=== PATIENT | male | born 1955 | race Caucasian/White ===

== ENCOUNTER 2016-04-24 19:00 | Inpatient (IN) | payer OTHER ==
[2016-04-24 19:19] VITALS: BMI 48.8
[2016-04-24] MEDS: SODIUM CHLORIDE 1,000 ML IV SCH (19:56)
[2016-04-24 20:07] LABS: BASOPHIL 0.3 % (0-2.0); EOSINOPHIL 2.3 % (0-4.5); MCH 31.6 pg (25.7-33.7); MCHC 34.5 g/dl (32.0-35.9); MEAN CELL VOLUME 91.6 fl (80-96); MEAN PLT VOLUME 7.1 fl (7.5-11.1); PLATELET COUNT 145 K/MM3 (134-434); RDW 13.6 % (11.9-15.9); WHITE BLOOD COUNT 7.4 K/mm3 (4.0-10.0)
--- NOTE | 2016-04-24 20:21 | PDOC ---
*Physical Exam - Vital Signs Last Vital Signs Temp Pulse Resp BP Pulse Ox 98.6 F 108 H 18 120/69 100 04/24/16 19:17 04/24/16 19:17 04/24/16 19:17 04/24/16 19:17 04/24/16 19:17 ED Treatment Course - LABORATORY CBC & Chemistry Diagram: 04/25/16 15:00 04/25/16 06:15 - ADDITIONAL ORDERS Additional order review: 04/24/16 19:40 RBC 4.73 MCV 91.6 MCHC 34.5 RDW 13.6 MPV 7.1 L Neutrophils % 74.0 D Lymphocytes % 14.6 D Monocytes % 8.8 Eosinophils % 2.3 Basophils % 0.3 Medical Decision Making - Medical Decision Making 04/24/16 20:20 agree with care from PITO Lazar *DC/Admit/Observation/Transfer Diagnosis at time of Disposition: Colitis, CHF exacerbation, Atrial fibrillation - Discharge Dispostion Condition at time of disposition: Fair
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
[2016-04-24 20:52] LABS: ALBUMIN 3.6 g/dl (3.4-5.0); BILIRUBIN,DIRECT 0.2 mg/dL (0.0-0.2); BILIRUBIN,TOTAL 0.7 mg/dL (0.2-1.0); CALCIUM 8.5 mg/dL (8.5-10.1); CREATININE 1.1 mg/dL (0.7-1.3); TOT PROT 7.2 g/dl (6.4-8.2)
[2016-04-24 20:53] LABS: TROPONIN I < 0.02 ng/ml (0.00-0.05)
[2016-04-24] MEDS ORDERED: LEVOFLOXACIN 500 MG IVPB 100 ML IVPB ONE (22:56)
[2016-04-24] MEDS ORDERED: METRONIDAZOLE 500 MG PREMIXED 100 ML IVPB ONE (22:56)
[2016-04-24] MEDS ORDERED: morphine CARPU-JECT 4 MG/1 ML DISP.SYRIN IVPUSH ONE (23:33)
[2016-04-25 00:12] LABS: PH,URINE 5.5 (5.0-8.0); URINE APPEARANCE CLEAR; URINE BILIRUBIN NEGATIVE (NEGATIVE); URINE COLOR LT. YELLOW; URINE GLUCOSE (UA) NEGATIVE (NEGATIVE); URINE KETONE NEGATIVE (NEGATIVE); URINE LEUK ESTERASE NEGATIVE (NEGATIVE); URINE NITRITE NEGATIVE (NEGATIVE); URINE PROTEIN NEGATIVE (NEGATIVE); URINE UROBILINOGEN 0.2 E.U/dl E.U./dl (0.2-1.0)
[2016-04-25 00:14] LABS: URINE BLOOD 3+ (NEGATIVE)
[2016-04-25 00:15] LABS: URINE BACTERIA RARE /hpf (NONE SEEN); URINE MUCUS RARE; URINE RBC 173 /hpf (0-3); URINE WBC 4 /hpf (3-5)
[2016-04-25] MEDS ORDERED: morphine CARPU-JECT 4 MG/1 ML DISP.SYRIN ONE (00:36)
[2016-04-25] MEDS ORDERED: METRONIDAZOLE 500 MG PREMIXED 100 ML IVPB ONE (02:45)
[2016-04-25] MEDS ORDERED: LEVOFLOXACIN 500 MG IVPB 100 ML IVPB ONE ×2 (02:45→15:45)
[2016-04-25 03:42] LABS: INR 2.27 (0.82-1.09); PROTHROMBIN TIME (PATIENT) 25.4 SEC (9.98-11.88)
[2016-04-25] MEDS ORDERED: oxyCODONE HCL 5 MG TABLET ONE ×2 (04:44→10:51)
[2016-04-25] MEDS: oxyCODONE HCL 5 MG TABLET PO PRN ×4 (04:48→19:46)
[2016-04-25] MEDS ORDERED: PATIENT'S OWN MEDICATION (NON-FORMULARY) (Alprazolam [Xanax] 1 MG) PO SCH (06:00)
[2016-04-25 06:37] LABS: BASOPHIL 0.5 % (0-2.0); EOSINOPHIL 2.7 % (0-4.5); MCH 31.5 pg (25.7-33.7); MCHC 34.4 g/dl (32.0-35.9); MEAN CELL VOLUME 91.6 fl (80-96); MEAN PLT VOLUME 7.5 fl (7.5-11.1); PLATELET COUNT 137 K/MM3 (134-434); RDW 13.5 % (11.9-15.9); WHITE BLOOD COUNT 7.8 K/mm3 (4.0-10.0)
[2016-04-25] MEDS: ALPRAZolam 2 MG TABLET PO SCH ×3 (06:39→21:09)
[2016-04-25 07:00] LABS: ALBUMIN 3.1 g/dl (3.4-5.0); ANION GAP 6 (8-16); CALCIUM 7.7 mg/dL (8.5-10.1); CO2 30 mmol/L (21-32); GLUCOSE,RANDOM 71 mg/dL (74-106); SGOT/AST 21 U/L (15-37); SGPT/ALT 20 U/L (12-78)
[2016-04-25 07:04] LABS: ALK PHOS 54 U/L (45-117); BILIRUBIN,TOTAL 0.9 mg/dL (0.2-1.0); TOT PROT 6.2 g/dl (6.4-8.2); TROPONIN I < 0.02 ng/ml (0.00-0.05)
[2016-04-25 07:57] LABS: INR 2.45 (0.82-1.09); PROTHROMBIN TIME (PATIENT) 27.4 SEC (9.98-11.88)
[2016-04-25] MEDS ORDERED: LOPERAMIDE HCL 2 MG CAPSULE ONE (08:55)
--- NOTE | 2016-04-25 09:06 | PN ---
Progress Note (short form) - Note Progress Note: Cardiology Consult Dictated 1. Permanent AF on coumadin with reported recent therapeutic range levels 2. CAD s/p PCI 3. Chronic Diastolic CHF 4. Morbid Obesity 5. History of chronic Low back pain, on opiates, prior falls resulting in ICH treated at [facility] Now admitted with 2 weeks diarrhea, several days of lower abdominal pain and reported melena. CT scan showing "colitis." REC: 1. GI evaluation to review CT and help determine etiology of colitis- infectious vs ischemic. Would be surprised if this is ischemic, as he is on coumadin and reports recent therapeutic INR trend. 2. By nurse report, had rapid AF early this AM which resolved when a cline was placed draining 600cc urine. Heart rate normalized afterward rapidly. Would consider cline for 24 hours as he is prone to urinary retention. 3. INR goal 2-3. 4. Echo to asses LV, r/o thrombus.
[2016-04-25] MEDS ORDERED: PANTOPRAZOLE SODIUM 40 MG in SODIUM CHLORIDE 100 ML IVPB ONE (09:14)
[2016-04-25] MEDS ORDERED: PANTOPRAZOLE SODIUM 100 ML IVPB ONE (09:42)
[2016-04-25] MEDS ORDERED: levETIRAcetam 500 MG TABLET (FP) PO ONE (10:38)
[2016-04-25] MEDS ORDERED: PANTOPRAZOLE SODIUM 40 MG VIAL ONE (10:38)
[2016-04-25] MEDS ORDERED: LISINOPRIL 20 MG TABLET (FP) ONE (10:38)
[2016-04-25] MEDS: PANTOPRAZOLE SODIUM 80 MG in SODIUM CHLORIDE 100 ML IVPB SCH ×2 (10:46→20:39)
[2016-04-25] MEDS: LISINOPRIL 20 MG TABLET (FP) PO SCH (10:46)
[2016-04-25] MEDS: TAMSULOSIN HCL 0.4 MG CAP.ER.24H (FP) PO SCH (10:46)
[2016-04-25] MEDS: levETIRAcetam 500 MG TABLET (FP) PO SCH (10:46)
[2016-04-25] MEDS: FINASTERIDE 5 MG TABLET (FP) PO SCH (14:02)
[2016-04-25] MEDS: METOPROLOL SUCCINATE 25 MG TAB.SR.24H (FP) PO SCH (14:02)
[2016-04-25] MEDS: MAG HYDROX/AL HYDROX/SIMETH 30 ML UNIT-DOSE CUP PO PRN (14:40)
--- NOTE | 2016-04-25 14:42 | CONS ---
DATE OF CONSULTATION: 04/25/2016 REQUESTING PHYSICIAN: Zane Dhaliwal MD REASON FOR CONSULT: Atrial fibrillation with rapid ventricular response. The patient is known to our service. He is a 61-year-old male with permanent atrial fibrillation on Coumadin, coronary artery disease with prior history of PCI more than 1 year ago, morbid obesity, chronic low back pain on opiates, previous history of falls resulting in intracranial bleed, treated at [facility] several years ago. He is now admitted with approximately 2 weeks of what he describes as watery diarrhea and the recent onset of lower abdominal pain which began approximately 2-3 days ago. Last evening he described slightly worsening abdominal pain with dark stool. He denies chest pain, palpitations, shortness of breath beyond baseline. He reports his INR trend has been therapeutic, usually around 2-3. PAST MEDICAL HISTORY: As outlined above, and also includes chronic diastolic CHF, BPH, nephrolithiasis, history of seizures, and vitamin D deficiency. ALLERGIES: None. MEDICATIONS: His home medications include Coumadin 2.5 mg at bedtime, Flomax 0.4 daily, MiraLax p.r.n., oxycodone 20 mg t.i.d., Toprol-XL 12.5 mg daily, lisinopril 20 mg daily, Keppra 750 mg daily, Proscar 5 mg daily, aspirin 81 mg daily, Plavix 75 mg daily, Xanax 1 mg t.i.d. FAMILY HISTORY: Noncontributory. SOCIAL HISTORY: Lives at home. Denies recent hospitalizations or [facility] stays. PHYSICAL EXAMINATION: Vital Signs: Blood pressure 98.6, pulse 95 in atrial fibrillation, blood pressure 150/94, O2 saturation 99% on room air. Heart: S1, S2 irregular. No murmurs. Chest: Clear bilaterally. Abdomen: Obese, soft, nontender. No rebound or guarding. Extremities: With no significant pitting edema. STUDIES: EKG: Atrial fibrillation at approximately 105 beats per minute with chronic right bundle branch block. CBC: White count 7.8, hematocrit 40, platelets 137, INR 2.45, sodium 141, potassium 4, creatinine 1, CK troponin negative x2. Stool guaiac is negative. Chest x-ray normal. CT scan abdomen and pelvis: Thickening and irregularity of the sigmoid and rectum suspicious for colitis. ASSESSMENT: 1. Permanent atrial fibrillation on Coumadin. 2. Coronary artery disease status post percutaneous coronary intervention. 3. Chronic diastolic congestive heart failure. 4. Morbid obesity. 5. Chronic low back pain on opiates, prior falls with previous intracranial hemorrhage. 6. Benign prostatic hypertrophy with urinary retention. Now admitted with 2 weeks of diarrhea, several days of lower abdominal pain, melena, and CT scan showing colitis. RECOMMENDATIONS: 1. Colitis: GI evaluation to review CT and help determine the etiology of colitis; Infectious versus ischemic? Would be surprised if this is ischemic as he is on Coumadin and reports recent therapeutic INR trend. 2. Atrial fibrillation: Brief episode of atrial fibrillation with rapid ventricular response earlier this morning in the setting of urinary retention. Nursing reports insertion of Vasques with drainage of 600 mL of urine, with heart rate returning to normal almost immediately thereafter. Would consider placing a Vasques catheter for 24 hours as he is prone to urinary retention. 3. Maintain INR 2-3. 4. Will obtain echo to assess LV function and rule out the remote possibility of LV thrombus. 5. Coronary artery disease: Prior PCI. Will review previous angiogram, at this point could probably be maintained on single antiplatelet therapy. Thank you for the consultation. MELISSA MURRAY M.D. [id number]
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
--- NOTE | 2016-04-25 16:09 | EKG ---
Test Reason : Blood Pressure : / mmHG Vent. Rate : 105 BPM Atrial Rate : 093 BPM P-R Int : 000 ms QRS Dur : 104 ms QT Int : 356 ms P-R-T Axes : 000 020 013 degrees QTc Int : 470 ms ATRIAL FIBRILLATION WITH RAPID VENTRICULAR RESPONSE WITH PREMATURE VENTRICULAR OR ABERRANTLY CONDUCTED COMPLEXES LOW VOLTAGE QRS INCOMPLETE RIGHT BUNDLE BRANCH BLOCK CANNOT RULE OUT ANTERIOR INFARCT (CITED ON OR BEFORE 23-DEC-2015) ABNORMAL ECG WHEN COMPARED WITH ECG OF 23-DEC-2015 22:42, QUESTIONABLE CHANGE IN INITIAL FORCES OF SEPTAL LEADS T WAVE INVERSION MORE EVIDENT IN ANTERIOR LEADS Confirmed by SILVIA SCHULTZ MD ([id number]) on 04/25/2016 4:09:21 PM Referred By: Confirmed By:SILVIA SCHULTZ MD
[2016-04-25 16:48] LABS: BASOPHIL 0.5 % (0-2.0); EOSINOPHIL 2.9 % (0-4.5); MCH 31.9 pg (25.7-33.7); MCHC 35.2 g/dl (32.0-35.9); MEAN CELL VOLUME 90.6 fl (80-96); MEAN PLT VOLUME 7.6 fl (7.5-11.1); NEUTROPHILS 63.3 % (42.8-82.8); PLATELET COUNT 134 K/MM3 (134-434); RDW 13.6 % (11.9-15.9); WHITE BLOOD COUNT 7.7 K/mm3 (4.0-10.0)
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
[2016-04-25] MEDS: METRONIDAZOLE 500 MG PREMIXED 100 ML IVPB SCH (18:45)
[2016-04-25] MEDS: SODIUM CHLORIDE 1,000 ML IV SCH (20:40)
[2016-04-26] MEDS: oxyCODONE HCL 5 MG TABLET PO PRN ×6 (00:41→21:51)
[2016-04-26] MEDS: METRONIDAZOLE 500 MG PREMIXED 100 ML IVPB SCH ×3 (02:35→18:05)
[2016-04-26] MEDS: PANTOPRAZOLE SODIUM 80 MG in SODIUM CHLORIDE 100 ML IVPB SCH ×3 (05:38→15:49)
[2016-04-26] MEDS: ALPRAZolam 2 MG TABLET PO SCH ×3 (05:43→21:52)
[2016-04-26 08:23] LABS: BASOPHIL 0.4 % (0-2.0); EOSINOPHIL 4.8 % (0-4.5); MCH 31.8 pg (25.7-33.7); MCHC 34.9 g/dl (32.0-35.9); MEAN CELL VOLUME 91.2 fl (80-96); MEAN PLT VOLUME 7.4 fl (7.5-11.1); NEUTROPHILS 62.2 % (42.8-82.8); PLATELET COUNT 118 K/MM3 (134-434); RDW 13.3 % (11.9-15.9); WHITE BLOOD COUNT 5.8 K/mm3 (4.0-10.0)
[2016-04-26 08:30] LABS: INR 2.28 (0.82-1.09); PROTHROMBIN TIME (PATIENT) 25.5 SEC (9.98-11.88)
--- NOTE | 2016-04-26 08:35 | PN ---
Progress Note, Physician - Current Medication List Current Medications: Active Medications Acetaminophen (Tylenol -) 650 mg PO Q6H PRN PRN Reason: HEADACHE PAIN Al Hydroxide/Mg Hydroxide (Mylanta Oral Suspension -) 30 ml PO Q6H PRN PRN Reason: INDIGESTION Last Admin: 04/25/16 14:40 Dose: 30 ml Alprazolam (Xanax -) 1 mg PO TID [facility] Last Admin: 04/26/16 05:43 Dose: 1 mg Finasteride (Proscar -) 5 mg PO DAILY [facility] Last Admin: 04/25/16 14:02 Dose: 5 mg Sodium Chloride (Normal Saline -) 1,000 mls @ 150 mls/hr IV ASDIR [facility] Last Admin: 04/25/16 20:40 Dose: Not Given Pantoprazole Sodium 80 mg/ (Sodium Chloride) 100 mls @ 10 mls/hr IVPB Q10H AMARI PRN Reason: 8 MG/HR Last Admin: 04/26/16 05:38 Dose: Not Given Metronidazole (Flagyl 500mg Premixed Ivpb -) 100 mls @ 100 mls/hr IVPB Q8H-IV [facility] Last Admin: 04/26/16 02:35 Dose: 100 mls/hr Levetiracetam (Keppra -) 750 mg PO DAILY [facility] Last Admin: 04/25/16 10:46 Dose: 750 mg Lisinopril (Prinivil) 20 mg PO DAILY [facility] Last Admin: 04/25/16 10:46 Dose: 20 mg Metoprolol Succinate (Toprol Xl -) 12.5 mg PO DAILY [facility] Last Admin: 04/25/16 14:02 Dose: 12.5 mg Oxycodone HCl (Roxicodone -) 10 mg PO Q4H PRN PRN Reason: PAIN Last Admin: 04/26/16 05:42 Dose: 10 mg Tamsulosin HCl (Flomax -) 0.4 mg PO DAILY [facility] Last Admin: 04/25/16 10:46 Dose: 0.4 mg - Objective Vital Signs: Vital Signs Temperature 97.8 F 04/26/16 06:00 Pulse Rate 79 04/26/16 06:00 Respiratory Rate 19 04/26/16 06:00 Blood Pressure 115/74 04/26/16 06:00 O2 Sat by Pulse Oximetry (%) 95 04/25/16 21:00 Cardiovascular: Yes: S1, S2 Respiratory: Yes: Regular, CTA Bilaterally Gastrointestinal: Yes: Normal Bowel Sounds, Soft Labs: INR, PTT INR 2.45 (0.82-1.09) H 04/25/16 06:15 Assessment/Plan - Problems (1) Atrial fibrillation Assessment/Plan: hold couamdin h/h in ok BP is ok cardio on board GI pending protonix drip Code(s): I48.91 - UNSPECIFIED ATRIAL FIBRILLATION Qualifiers: Atrial fibrillation type: chronic Qualified Code(s): I48.2 - Chronic atrial fibrillation (2) Colitis Assessment/Plan: levaquin ad flagyl GI Code(s): K52.9 - NONINFECTIVE GASTROENTERITIS AND COLITIS, UNSPECIFIED (3) Melena Assessment/Plan: per pateint black stools serial CBC and gi eval NPO PPI drip Code(s): K92.1 - MELENA (4) Urinary retention Assessment/Plan: cline cath bladder sono flomax Code(s): R33.9 - RETENTION OF URINE, UNSPECIFIED
[2016-04-26 08:52] LABS: ALK PHOS 48 U/L (45-117); ANION GAP 8 (8-16); BILIRUBIN,TOTAL 0.9 mg/dL (0.2-1.0); CALCIUM 8.2 mg/dL (8.5-10.1); CO2 30 mmol/L (21-32); GLUCOSE,RANDOM 63 mg/dL (74-106); SGOT/AST 21 U/L (15-37); SGPT/ALT 19 U/L (12-78); TOT PROT 6.4 g/dl (6.4-8.2)
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
[2016-04-26] MEDS: levETIRAcetam 500 MG TABLET (FP) PO SCH (10:11)
[2016-04-26] MEDS: FINASTERIDE 5 MG TABLET (FP) PO SCH (10:12)
[2016-04-26] MEDS: TAMSULOSIN HCL 0.4 MG CAP.ER.24H (FP) PO SCH (10:12)
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
[2016-04-26] MEDS: METOPROLOL SUCCINATE 25 MG TAB.SR.24H (FP) PO SCH (10:13)
[2016-04-26] MEDS: LISINOPRIL 20 MG TABLET (FP) PO SCH (10:13)
[2016-04-26] MEDS: ACETAMINOPHEN 325 MG TABLET (FP) PO PRN ×2 (14:10→21:52)
--- NOTE | 2016-04-26 20:39 | PN ---
GI Progress Note Subjective: GASTROENTEROLOGY ANXIOUS, NO DIARRHEA BUT STATES HAD A LOT OF GAS TODAY AND WAS WORRIED OFF PLAVIX/WARFARIN/ASA INR TRENDING DOWN - Objective Vital Signs: Vital Signs Temperature 98.4 F 04/26/16 18:00 Pulse Rate 83 04/26/16 18:00 Respiratory Rate 19 04/26/16 18:00 Blood Pressure 131/73 04/26/16 18:00 O2 Sat by Pulse Oximetry (%) 98 04/26/16 09:00 Constitutional: Obese Eyes: Yes: Conjunctiva Clear HENT: Yes: Normocephalic Cardiovascular: Yes: Pulse Irregular Respiratory: Yes: Regular ...Auscultate: Yes: Normoactive Bowel Sounds ...Palpate: Yes: Soft Extremities: Yes: WNL Edema: Yes Labs: CBC, BMP 04/26/16 06:10 04/26/16 06:10 INR, PTT INR 2.28 (0.82-1.09) H 04/26/16 06:10 Problem List - Problems (1) Diarrhea in adult patient Assessment/Plan: NO CHANGE IN H&H NO DIARRHEA POSITIVE COLITIS ON CT SCAN FOLLOW RECOMMENDATIONS OF CARDIO, SWITCH TO BRIDGE HEPARIN, IF INR OK PREP FRIDAY FOR FRIDAY FLIP ADVANCE DIET TOLERATED DR FLOYD COVERING THIS WEEKEND. Code(s): R19.7 - DIARRHEA, UNSPECIFIED (2) Colitis Code(s): K52.9 - NONINFECTIVE GASTROENTERITIS AND COLITIS, UNSPECIFIED (3) Dark stools Code(s): R19.5 - OTHER FECAL ABNORMALITIES (4) Hep C w/o coma, chronic Code(s): B18.2 - CHRONIC VIRAL HEPATITIS C (5) Splenomegaly Code(s): R16.1 - SPLENOMEGALY, NOT ELSEWHERE CLASSIFIED (6) Atrial fibrillation Code(s): I48.91 - UNSPECIFIED ATRIAL FIBRILLATION Qualifiers: Atrial fibrillation type: chronic Qualified Code(s): I48.2 - Chronic atrial fibrillation (7) CHF exacerbation Code(s): I50.9 - HEART FAILURE, UNSPECIFIED Qualifiers: Congestive heart failure type: unspecified congestive heart failure type Qualified Code(s): I50.9 - Heart failure, unspecified
[2016-04-26] MEDS: MAG HYDROX/AL HYDROX/SIMETH 30 ML UNIT-DOSE CUP PO PRN (21:51)
[2016-04-26] MEDS: SODIUM CHLORIDE 1,000 ML IV SCH (21:55)
[2016-04-27] MEDS: oxyCODONE HCL 5 MG TABLET PO PRN ×6 (02:05→22:21)
[2016-04-27] MEDS: METRONIDAZOLE 500 MG PREMIXED 100 ML IVPB SCH ×3 (02:05→17:41)
[2016-04-27] MEDS: ACETAMINOPHEN 325 MG TABLET (FP) PO PRN ×3 (03:00→17:53)
[2016-04-27] MEDS: ALPRAZolam 2 MG TABLET PO SCH ×3 (06:13→22:21)
[2016-04-27 08:30] LABS: INR 2.31 (0.82-1.09); PROTHROMBIN TIME (PATIENT) 25.8 SEC (9.98-11.88)
[2016-04-27] MEDS ORDERED: PT OWN MED DRAWER 7, Y5N ONE (09:42)
[2016-04-27] MEDS: levETIRAcetam 500 MG TABLET (FP) PO SCH (09:44)
[2016-04-27] MEDS: FINASTERIDE 5 MG TABLET (FP) PO SCH (09:44)
[2016-04-27] MEDS: METOPROLOL SUCCINATE 25 MG TAB.SR.24H (FP) PO SCH (09:44)
[2016-04-27] MEDS: LISINOPRIL 20 MG TABLET (FP) PO SCH (09:44)
[2016-04-27] MEDS: TAMSULOSIN HCL 0.4 MG CAP.ER.24H (FP) PO SCH (09:44)
--- NOTE | 2016-04-27 10:01 | PN ---
Progress Note, Physician Chief Complaint: REQUEST TO INC PAIN Rx - Current Medication List Current Medications: Active Medications Acetaminophen (Tylenol -) 650 mg PO Q6H PRN PRN Reason: HEADACHE PAIN Last Admin: 04/27/16 03:00 Dose: 650 mg Al Hydroxide/Mg Hydroxide (Mylanta Oral Suspension -) 30 ml PO Q6H PRN PRN Reason: INDIGESTION Last Admin: 04/26/16 21:51 Dose: 30 ml Alprazolam (Xanax -) 1 mg PO TID [facility] Last Admin: 04/27/16 06:13 Dose: 1 mg Finasteride (Proscar -) 5 mg PO DAILY [facility] Last Admin: 04/27/16 09:44 Dose: 5 mg Sodium Chloride (Normal Saline -) 1,000 mls @ 150 mls/hr IV ASDIR [facility] Last Admin: 04/26/16 21:55 Dose: Not Given Pantoprazole Sodium 80 mg/ (Sodium Chloride) 100 mls @ 10 mls/hr IVPB Q10H [facility] PRN Reason: 8 MG/HR Last Admin: 04/26/16 15:49 Dose: Not Given Metronidazole (Flagyl 500mg Premixed Ivpb -) 100 mls @ 100 mls/hr IVPB Q8H-IV [facility] Last Admin: 04/27/16 09:46 Dose: 100 mls/hr Levetiracetam (Keppra -) 750 mg PO DAILY [facility] Last Admin: 04/27/16 09:44 Dose: 750 mg Lisinopril (Prinivil) 20 mg PO DAILY [facility] Last Admin: 04/27/16 09:44 Dose: 20 mg Metoprolol Succinate (Toprol Xl -) 12.5 mg PO DAILY [facility] Last Admin: 04/27/16 09:44 Dose: 12.5 mg Oxycodone HCl (Roxicodone -) 10 mg PO Q4H PRN PRN Reason: PAIN Last Admin: 04/27/16 06:13 Dose: 10 mg Tamsulosin HCl (Flomax -) 0.4 mg PO DAILY [facility] Last Admin: 04/27/16 09:44 Dose: 0.4 mg - Objective Vital Signs: Vital Signs Temperature 98.2 F 04/27/16 09:00 Pulse Rate 95 H 04/27/16 09:00 Respiratory Rate 20 04/27/16 09:00 Blood Pressure 120/75 04/27/16 09:00 O2 Sat by Pulse Oximetry (%) 98 04/26/16 20:38 Cardiovascular: Yes: WNL Respiratory: Yes: WNL Gastrointestinal: Yes: Normal Bowel Sounds, Soft, Tenderness. No: Tenderness, Rebound Labs: CBC, BMP 04/26/16 06:10 04/26/16 06:10 INR, PTT INR 2.31 (0.82-1.09) H 04/27/16 05:45 Problem List - Problems (1) Atrial fibrillation Code(s): I48.91 - UNSPECIFIED ATRIAL FIBRILLATION Qualifiers: Atrial fibrillation type: chronic Qualified Code(s): I48.2 - Chronic atrial fibrillation (2) Colitis Code(s): K52.9 - NONINFECTIVE GASTROENTERITIS AND COLITIS, UNSPECIFIED Assessment/Plan (1) Atrial fibrillation Assessment/Plan: ac & plavix on hold GI on case -> endoscopy or colonoscopy planned for friday? protonix drip inr 2.3 -> monitor cardio on case -> Can hold coumadin for several days to allow for , can bridge with IV heparin when INR < 2.0. Will review cath records, can likely resume single antiplatelet therapy when source of possible bleed detected/treated. Code(s): I48.91 - UNSPECIFIED ATRIAL FIBRILLATION Qualifiers: Atrial fibrillation type: chronic Qualified Code(s): I48.2 - Chronic atrial fibrillation (2) Colitis Assessment/Plan: abx GI Code(s): K52.9 - NONINFECTIVE GASTROENTERITIS AND COLITIS, UNSPECIFIED (3) Melena Assessment/Plan: per pateint black stools serial CBC and gi eval NPO PPI drip plavix on hold Code(s): K92.1 - MELENA (4) Urinary retention Assessment/Plan: cline cath bladder sono flomax Code(s): R33.9 - RETENTION OF URINE, UNSPECIFIED [employer]
--- NOTE | 2016-04-27 10:14 | PN ---
Progress Note, Physician History of Present Illness: seen and examined today in nad. no overnight events. no new complaints. states he is feeling fatigued. - Current Medication List Current Medications: Active Medications Acetaminophen (Tylenol -) 650 mg PO Q6H PRN PRN Reason: HEADACHE PAIN Last Admin: 04/27/16 10:01 Dose: 650 mg Al Hydroxide/Mg Hydroxide (Mylanta Oral Suspension -) 30 ml PO Q6H PRN PRN Reason: INDIGESTION Last Admin: 04/26/16 21:51 Dose: 30 ml Alprazolam (Xanax -) 1 mg PO TID [facility] Last Admin: 04/27/16 06:13 Dose: 1 mg Finasteride (Proscar -) 5 mg PO DAILY [facility] Last Admin: 04/27/16 09:44 Dose: 5 mg Sodium Chloride (Normal Saline -) 1,000 mls @ 150 mls/hr IV ASDIR [facility] Last Admin: 04/26/16 21:55 Dose: Not Given Pantoprazole Sodium 80 mg/ (Sodium Chloride) 100 mls @ 10 mls/hr IVPB Q10H [facility] PRN Reason: 8 MG/HR Last Admin: 04/26/16 15:49 Dose: Not Given Metronidazole (Flagyl 500mg Premixed Ivpb -) 100 mls @ 100 mls/hr IVPB Q8H-IV [facility] Last Admin: 04/27/16 09:46 Dose: 100 mls/hr Levetiracetam (Keppra -) 750 mg PO DAILY [facility] Last Admin: 04/27/16 09:44 Dose: 750 mg Lisinopril (Prinivil) 20 mg PO DAILY [facility] Last Admin: 04/27/16 09:44 Dose: 20 mg Metoprolol Succinate (Toprol Xl -) 12.5 mg PO DAILY [facility] Last Admin: 04/27/16 09:44 Dose: 12.5 mg Oxycodone HCl (Roxicodone -) 10 mg PO Q4H PRN PRN Reason: PAIN Last Admin: 04/27/16 09:58 Dose: 10 mg Tamsulosin HCl (Flomax -) 0.4 mg PO DAILY [facility] Last Admin: 04/27/16 09:44 Dose: 0.4 mg - Objective Vital Signs: Vital Signs Temperature 98.2 F 04/27/16 09:00 Pulse Rate 95 H 04/27/16 09:00 Respiratory Rate 20 04/27/16 09:00 Blood Pressure 120/75 04/27/16 09:00 O2 Sat by Pulse Oximetry (%) 98 04/26/16 20:38 Constitutional: Yes: No Distress, Calm, Obese Eyes: Yes: WNL, Conjunctiva Clear, EOM Intact, PERRL HENT: Yes: WNL, Atraumatic, Normocephalic Neck: Yes: WNL, Supple, Trachea Midline Cardiovascular: Yes: Pulse Irregular, S1, S2. No: Regular Rate and Rhythm, Bradycardia, Tachycardia, Bruit, JVD, Gallop, Murmur, Rub, S3, S4, Varicosities Respiratory: Yes: Regular, Diminished. No: Rales, Rhonchi, Wheezes Gastrointestinal: Yes: Normal Bowel Sounds, Soft. No: Distention, Tenderness Musculoskeletal: Yes: WNL Extremities: Yes: WNL Edema: No Peripheral Pulses WNL: Yes Peripheral Pulses: Left Doralis Pedis: 2+, Right Dorsalis Pedis: 2+ Integumentary: Yes: WNL Neurological: Yes: WNL, Alert, Oriented Psychiatric: Yes: WNL, Alert, Oriented Labs: CBC, BMP 04/26/16 06:10 04/26/16 06:10 INR, PTT INR 2.31 (0.82-1.09) H 04/27/16 05:45 - ....Imaging Chest X-ray: Report Reviewed, Image Reviewed EKG: Report Reviewed, Image Reviewed Other: Report Reviewed, Image Reviewed (tele-AFib, HR controlled, short insignificant pauses) Assessment/Plan 61 year old man with a history of HTN, HLD, CAD s/p PCI last 05/16/15, chronic diastolic CHF, chronic afib, chronic lower back pain-opiate dependent, morbid obesity admitted with diarrhea, abdominal pain, and possible melena. REC: H/H stable despite report of melena Plan for endoscopy once INR normalized Hold coumadin, start heparin gtt bridge once INR <2 Last cardiac cath 05/16/15 s/p JOHN mRCA and RPDA Anti-platelets on hold for possible GI bleed, plan to resume ASA 81mg daily alone depending on endoscopy results Ok to dc tele, afib is well controlled, no other arrhythmias since admission
[2016-04-27] MEDS: PANTOPRAZOLE SODIUM 80 MG in SODIUM CHLORIDE 100 ML IVPB SCH ×3 (11:00→22:21)
[2016-04-27] MEDS: MAG HYDROX/AL HYDROX/SIMETH 30 ML UNIT-DOSE CUP PO PRN ×2 (11:56→17:55)
--- NOTE | 2016-04-27 12:29 | PN ---
Progress Note (short form) - Note Progress Note: Neurology Patient is a 61yo Male who presented to this ED via EMS. Patient reports dark stool and chronic opioid use. He states while trying to use a urinal in his bedroom, he felt BM at the same time. While ambulating to bathroom, he reports he went on himself and could not control BM. Is taking pain medication and being evaluated by GI for possible colonoscopy. Neurology consulted for altered mental status and CT head completed without acute changes. Patient does have seizure disorder and is on Keppra 750mg twice daily. Mental status during my encounter was at baseline and patient awake, alert, and oriented. Plan for colonoscopy/endoscopy. Active Medications Acetaminophen (Tylenol -) 650 mg PO Q6H PRN PRN Reason: HEADACHE PAIN Last Admin: 04/27/16 10:01 Dose: 650 mg Al Hydroxide/Mg Hydroxide (Mylanta Oral Suspension -) 30 ml PO Q6H PRN PRN Reason: INDIGESTION Last Admin: 04/27/16 11:56 Dose: 30 ml Alprazolam (Xanax -) 1 mg PO TID [facility] Last Admin: 04/27/16 06:13 Dose: 1 mg Finasteride (Proscar -) 5 mg PO DAILY [facility] Last Admin: 04/27/16 09:44 Dose: 5 mg Sodium Chloride (Normal Saline -) 1,000 mls @ 150 mls/hr IV ASDIR [facility] Last Admin: 04/26/16 21:55 Dose: Not Given Pantoprazole Sodium 80 mg/ (Sodium Chloride) 100 mls @ 10 mls/hr IVPB Q10H [facility] PRN Reason: 8 MG/HR Last Admin: 04/27/16 12:13 Dose: Not Given Metronidazole (Flagyl 500mg Premixed Ivpb -) 100 mls @ 100 mls/hr IVPB Q8H-IV [facility] Last Admin: 04/27/16 09:46 Dose: 100 mls/hr Levetiracetam (Keppra -) 750 mg PO DAILY [facility] Last Admin: 04/27/16 09:44 Dose: 750 mg Lisinopril (Prinivil) 20 mg PO DAILY [facility] Last Admin: 04/27/16 09:44 Dose: 20 mg Metoprolol Succinate (Toprol Xl -) 12.5 mg PO DAILY [facility] Last Admin: 04/27/16 09:44 Dose: 12.5 mg Oxycodone HCl (Roxicodone -) 10 mg PO Q4H PRN PRN Reason: PAIN Last Admin: 04/27/16 09:58 Dose: 10 mg Tamsulosin HCl (Flomax -) 0.4 mg PO DAILY [facility] Last Admin: 04/27/16 09:44 Dose: 0.4 mg *Physical Exam Vital Signs Temperature 98.2 F 04/27/16 09:00 Pulse Rate 95 H 04/27/16 09:00 Respiratory Rate 20 04/27/16 09:00 Blood Pressure 120/75 04/27/16 09:00 O2 Sat by Pulse Oximetry (%) 98 04/27/16 09:00 - Physical Exam General Appearance: Yes: Nourished, Other (Morbid Obese). No: Apparent Distress , Disheveled, Mild Distress, Moderate Distress, Severe Distress HEENT: positive: EOMI, NIDIA, Normal ENT Inspection, Normal Voice, Symmetrical, TMs Normal, Pharynx Normal Neck: positive: Trachea midline, Supple. negative: Decreased range of motion, Stridor, Lymphadenopathy (R), Lymphadenopathy (L) Respiratory/Chest: positive: Lungs Clear, Normal Breath Sounds. negative: Respiratory Distress, Accessory Muscle Use, Labored Respiration, Rapid RR, Decreased Breath Sounds, Crackles, Rales, Rhonchi, Stridor, Wheezing Cardiovascular: positive: Edema, Tachycardia, Irregular. negative: Regular Rate , JVD, Murmur, Bradycardia Gastrointestinal/Abdominal: positive: Soft, Increased Bowel Sounds, Distended, Tenderness (Lower abd on deep palpation.). negative: Guarding, Rebound Musculoskeletal: positive: Normal Inspection. negative: CVA Tenderness Extremity: positive: Normal Capillary Refill, Normal Inspection, Normal Range of Motion, Swelling. negative: Calf Tenderness, Erythema, Inflammation Integumentary: positive: Normal Color, Dry, Warm Neurologic: CN intact, awake, alert, conversive, oriented strength equal and normal, sensory intact CBCD WBC 5.8 K/mm3 (4.0-10.0) 04/26/16 06:10 RBC 4.29 M/mm3 (4.00-5.60) 04/26/16 06:10 Hgb 13.6 GM/dL (11.7-16.9) 04/26/16 06:10 Hct 39.1 % (35.4-49) 04/26/16 06:10 MCV 91.2 fl (80-96) 04/26/16 06:10 MCHC 34.9 g/dl (32.0-35.9) 04/26/16 06:10 RDW 13.3 % (11.9-15.9) 04/26/16 06:10 Plt Count 118 K/MM3 (134-434) L 04/26/16 06:10 MPV 7.4 fl (7.5-11.1) L 04/26/16 06:10 CMP Sodium 142 mmol/L (136-145) 04/26/16 06:10 Potassium 4.2 mmol/L (3.5-5.1) 04/26/16 06:10 Chloride 104 mmol/L (98-107) 04/26/16 06:10 Carbon Dioxide 30 mmol/L (21-32) 04/26/16 06:10 Anion Gap 8 (8-16) 04/26/16 06:10 BUN 11 mg/dL (7-18) 04/26/16 06:10 Creatinine 1.0 mg/dL (0.7-1.3) 04/26/16 06:10 Creat Clearance w eGFR > 60 (>60) 04/26/16 06:10 Calcium 8.2 mg/dL (8.5-10.1) L 04/26/16 06:10 Total Bilirubin 0.9 mg/dL (0.2-1.0) 04/26/16 06:10 AST 21 U/L (15-37) 04/26/16 06:10 ALT 19 U/L (12-78) 04/26/16 06:10 Alkaline Phosphatase 48 U/L (45-117) 04/26/16 06:10 Total Protein 6.4 g/dl (6.4-8.2) 04/26/16 06:10 Albumin 3.0 g/dl (3.4-5.0) L 04/26/16 06:10 Plan 61yo Male who presented to this ED via EMS. Patient reports dark stool and chronic opioid use. He states while trying to use a urinal in his bedroom, he felt BM at the same time. While ambulating to bathroom, he reports he went on himself and could not control BM. Is taking pain medication and being evaluated by GI for possible colonoscopy. Neurology consulted for altered mental status and CT head completed without acute changes. Patient does have seizure disorder and is on Keppra 750mg twice daily. Mental status during my encounter was at baseline and patient awake, alert, and oriented. Well appearing but uncomfortable. Neurologically appears to be at baseline. Plan for colonoscopy/ endoscopy.
--- NOTE | 2016-04-27 14:08 | PN ---
Progress Note (short form) - Note Progress Note: Per Dr. Rivera, plan is for EGD/Colonoscopy when coags allow. INR has gone up today. Continue to monitor. Will keep on clears on friday for possible procedures friday.
[2016-04-27] MEDS ORDERED: ONDANSETRON 4 MG/2 ML VIAL IVPB PRN (21:09)
[2016-04-27] MEDS: SODIUM CHLORIDE 1,000 ML IV SCH (21:24)
[2016-04-28] MEDS: MAG HYDROX/AL HYDROX/SIMETH 30 ML UNIT-DOSE CUP PO PRN ×2 (00:20→11:51)
[2016-04-28] MEDS: oxyCODONE HCL 5 MG TABLET PO PRN ×6 (02:35→22:47)
[2016-04-28] MEDS: ACETAMINOPHEN 325 MG TABLET (FP) PO PRN ×3 (02:36→20:50)
[2016-04-28] MEDS: METRONIDAZOLE 500 MG PREMIXED 100 ML IVPB SCH ×4 (02:36→18:20)
[2016-04-28] MEDS: ALPRAZolam 2 MG TABLET PO SCH (06:24)
[2016-04-28] MEDS: PANTOPRAZOLE SODIUM 80 MG in SODIUM CHLORIDE 100 ML IVPB SCH ×2 (08:00→20:50)
--- NOTE | 2016-04-28 08:27 | PN ---
Progress Note, Physician Chief Complaint: REQUEST HIGHER PAIN Rx MG "HAVE BEEN ON OXYCODONE 30mg x 10-15 YEARS' - Current Medication List Current Medications: Active Medications Acetaminophen (Tylenol -) 650 mg PO Q6H PRN PRN Reason: HEADACHE PAIN Last Admin: 04/28/16 02:36 Dose: 650 mg Al Hydroxide/Mg Hydroxide (Mylanta Oral Suspension -) 30 ml PO Q6H PRN PRN Reason: INDIGESTION Last Admin: 04/28/16 00:20 Dose: 30 ml Alprazolam (Xanax -) 1 mg PO TID [facility] Last Admin: 04/28/16 06:24 Dose: 1 mg Finasteride (Proscar -) 5 mg PO DAILY [facility] Last Admin: 04/27/16 09:44 Dose: 5 mg Sodium Chloride (Normal Saline -) 1,000 mls @ 150 mls/hr IV ASDIR [facility]PL[facility]ED [facility] Last Admin: 04/27/16 21:24 Dose: Not Given Pantoprazole Sodium 80 mg/ (Sodium Chloride) 100 mls @ 10 mls/hr IVPB Q10H [facility] PRN Reason: 8 MG/HR Last Admin: 04/27/16 22:21 Dose: 10 mls/hr Metronidazole (Flagyl 500mg Premixed Ivpb -) 100 mls @ 100 mls/hr IVPB Q8H-IV [facility] Last Admin: 04/28/16 02:36 Dose: 100 mls/hr Levetiracetam (Keppra -) 750 mg PO DAILY [facility] Last Admin: 04/27/16 09:44 Dose: 750 mg Lisinopril (Prinivil) 20 mg PO DAILY [facility] Last Admin: 04/27/16 09:44 Dose: 20 mg Metoprolol Succinate (Toprol Xl -) 12.5 mg PO DAILY [facility] Last Admin: 04/27/16 09:44 Dose: 12.5 mg Ondansetron HCl (Zofran Injection) 4 mg IVPB Q4H PRN PRN Reason: NAUSEA AND/OR VOMITING Oxycodone HCl (Roxicodone -) 15 mg PO Q4H PRN PRN Reason: PAIN Last Admin: 04/28/16 06:24 Dose: 15 mg Tamsulosin HCl (Flomax -) 0.4 mg PO DAILY [facility] Last Admin: 04/27/16 09:44 Dose: 0.4 mg - Objective Vital Signs: Vital Signs Temperature 97.8 F 04/28/16 06:00 Pulse Rate 71 04/28/16 06:00 Respiratory Rate 16 04/28/16 06:00 Blood Pressure 125/85 04/28/16 06:00 O2 Sat by Pulse Oximetry (%) 98 04/27/16 20:27 Cardiovascular: Yes: WNL Respiratory: Yes: WNL Gastrointestinal: Yes: Tenderness Labs: INR, PTT INR 2.31 (0.82-1.09) H 04/27/16 05:45 Problem List - Problems (1) Atrial fibrillation Code(s): I48.91 - UNSPECIFIED ATRIAL FIBRILLATION Qualifiers: Atrial fibrillation type: chronic Qualified Code(s): I48.2 - Chronic atrial fibrillation (2) Colitis Code(s): K52.9 - NONINFECTIVE GASTROENTERITIS AND COLITIS, UNSPECIFIED Assessment/Plan (1) Atrial fibrillation Assessment/Plan: ac & plavix on hold GI on case -> endoscopy or colonoscopy planned when inr <2 protonix drip cardio on case -> Can hold coumadin for several days to allow for , can bridge with IV heparin when INR < 2.0. Will review cath records, can likely resume single antiplatelet therapy when source of possible bleed detected/treated. Code(s): I48.91 - UNSPECIFIED ATRIAL FIBRILLATION Qualifiers: Atrial fibrillation type: chronic Qualified Code(s): I48.2 - Chronic atrial fibrillation (2) Colitis Assessment/Plan: abx GI PAIN Rx INCed Code(s): K52.9 - NONINFECTIVE GASTROENTERITIS AND COLITIS, UNSPECIFIED (3) Melena Assessment/Plan: per pateint black stools serial CBC and gi eval NPO PPI drip plavix on hold Code(s): K92.1 - MELENA (4) Urinary retention Assessment/Plan: cline cath bladder sono flomax Code(s): R33.9 - RETENTION OF URINE, UNSPECIFIED TRANSFER TO [facility]
[2016-04-28 08:45] LABS: BASOPHIL 0.6 % (0-2.0); EOSINOPHIL 7.6 % (0-4.5); MCH 31.7 pg (25.7-33.7); MCHC 34.7 g/dl (32.0-35.9); MEAN CELL VOLUME 91.3 fl (80-96); MEAN PLT VOLUME 7.2 fl (7.5-11.1); NEUTROPHILS 52.5 % (42.8-82.8); PLATELET COUNT 139 K/MM3 (134-434); RDW 13.6 % (11.9-15.9); WHITE BLOOD COUNT 4.4 K/mm3 (4.0-10.0)
[2016-04-28 08:50] LABS: INR 2.27 (0.82-1.09); PROTHROMBIN TIME (PATIENT) 25.4 SEC (9.98-11.88)
[2016-04-28 08:59] LABS: SGOT/AST 29 U/L (15-37); SGPT/ALT 22 U/L (12-78)
[2016-04-28 09:03] LABS: ALK PHOS 44 U/L (45-117); ANION GAP 7 (8-16); BILIRUBIN,TOTAL 0.5 mg/dL (0.2-1.0); CO2 31 mmol/L (21-32); CREATININE 0.9 mg/dL (0.7-1.3); GLUCOSE,RANDOM 73 mg/dL (74-106)
[2016-04-28] MEDS: LISINOPRIL 20 MG TABLET (FP) PO SCH (09:13)
[2016-04-28] MEDS: levETIRAcetam 500 MG TABLET (FP) PO SCH (09:13)
[2016-04-28] MEDS: TAMSULOSIN HCL 0.4 MG CAP.ER.24H (FP) PO SCH (09:13)
[2016-04-28] MEDS: FINASTERIDE 5 MG TABLET (FP) PO SCH (09:14)
[2016-04-28] MEDS: METOPROLOL SUCCINATE 25 MG TAB.SR.24H (FP) PO SCH (09:14)
--- NOTE | 2016-04-28 11:26 | PN ---
Progress Note, Physician History of Present Illness: seen and examined today in nad. no overnight events. no new complaints. - Current Medication List Current Medications: Active Medications Acetaminophen (Tylenol -) 650 mg PO Q6H PRN PRN Reason: HEADACHE PAIN Last Admin: 04/28/16 10:40 Dose: 650 mg Al Hydroxide/Mg Hydroxide (Mylanta Oral Suspension -) 30 ml PO Q6H PRN PRN Reason: INDIGESTION Last Admin: 04/28/16 00:20 Dose: 30 ml Alprazolam (Xanax -) 1 mg PO TID [facility] Last Admin: 04/28/16 06:24 Dose: 1 mg Finasteride (Proscar -) 5 mg PO DAILY [facility] Last Admin: 04/28/16 09:14 Dose: 5 mg Sodium Chloride (Normal Saline -) 1,000 mls @ 150 mls/hr IV ASDIR [facility] Last Admin: 04/27/16 21:24 Dose: Not Given Pantoprazole Sodium 80 mg/ (Sodium Chloride) 100 mls @ 10 mls/hr IVPB Q10H [facility] PRN Reason: 8 MG/HR Last Admin: 04/28/16 08:00 Dose: 10 mls/hr Metronidazole (Flagyl 500mg Premixed Ivpb -) 100 mls @ 100 mls/hr IVPB Q8H-IV [facility] Last Admin: 04/28/16 09:13 Dose: 100 mls/hr Levetiracetam (Keppra -) 750 mg PO DAILY [facility] Last Admin: 04/28/16 09:13 Dose: 750 mg Lisinopril (Prinivil) 20 mg PO DAILY [facility] Last Admin: 04/28/16 09:13 Dose: 20 mg Metoprolol Succinate (Toprol Xl -) 12.5 mg PO DAILY [facility] Last Admin: 04/28/16 09:14 Dose: 12.5 mg Ondansetron HCl (Zofran Injection) 4 mg IVPB Q4H PRN PRN Reason: NAUSEA AND/OR VOMITING Oxycodone HCl (Roxicodone -) 15 mg PO Q4H PRN PRN Reason: PAIN Last Admin: 04/28/16 10:41 Dose: 15 mg Tamsulosin HCl (Flomax -) 0.4 mg PO DAILY [facility] Last Admin: 04/28/16 09:13 Dose: 0.4 mg - Objective Vital Signs: Vital Signs Temperature 98 F 04/28/16 10:00 Pulse Rate 84 04/28/16 10:00 Respiratory Rate 18 04/28/16 10:00 Blood Pressure 120/80 04/28/16 10:00 O2 Sat by Pulse Oximetry (%) 98 04/28/16 09:00 Constitutional: Yes: No Distress, Calm, Obese Eyes: Yes: WNL, Conjunctiva Clear, EOM Intact, PERRL HENT: Yes: WNL, Atraumatic, Normocephalic Neck: Yes: WNL, Supple, Trachea Midline Cardiovascular: Yes: Pulse Irregular, S1, S2. No: Bradycardia, Tachycardia, Bruit, JVD, Gallop, Murmur, Rub, S3, S4, Varicosities Respiratory: Yes: Regular, Diminished. No: Rales, Rhonchi, Wheezes Gastrointestinal: Yes: WNL, Normal Bowel Sounds, Soft. No: Distention, Tenderness Musculoskeletal: Yes: Muscle Weakness Extremities: Yes: WNL Edema: Yes Edema: LLE: Trace, RLE: Trace Peripheral Pulses WNL: Yes Peripheral Pulses: Left Doralis Pedis: 2+, Right Dorsalis Pedis: 2+ Integumentary: Yes: WNL Neurological: Yes: Alert, Oriented Psychiatric: Yes: Alert, Oriented Labs: CBC, BMP 04/28/16 05:45 04/28/16 05:45 INR, PTT INR 2.27 (0.82-1.09) H 04/28/16 05:45 - ....Imaging Chest X-ray: Report Reviewed, Image Reviewed EKG: Report Reviewed, Image Reviewed Other: Report Reviewed, Image Reviewed (tele-afib, hr controlled) Assessment/Plan 61 year old man with a history of HTN, HLD, CAD s/p PCI last 05/16/15, chronic diastolic CHF, chronic afib, chronic lower back pain-opiate dependent, morbid obesity admitted with diarrhea, abdominal pain, and possible melena. REC: H/H stable despite report of melena Plan for endoscopy once INR normalized, still above 2 today Hold coumadin, start heparin gtt bridge once INR <2 Last cardiac cath 05/16/15 s/p JOHN mRCA and RPDA Anti-platelets on hold for possible GI bleed, plan to resume ASA 81mg daily alone depending on endoscopy results Ok to dc tele, afib is well controlled, no other arrhythmias since admission Cont Toprol and Lisinopril
[2016-04-28] MEDS ORDERED: oxyCODONE HCL 5 MG TABLET PO PRN (11:38)
[2016-04-28] MEDS ORDERED: SODIUM CHLORIDE 1,000 ML IV SCH (13:42)
[2016-04-28] MEDS ORDERED: ONDANSETRON 4 MG/2 ML VIAL IVPB PRN (13:42)
[2016-04-28] MEDS: ALPRAZolam 0.25 MG TABLET PO SCH ×2 (14:24→22:48)
[2016-04-28] MEDS ORDERED: PANTOPRAZOLE SODIUM 80 MG in SODIUM CHLORIDE 100 ML IVPB SCH (17:15)
[2016-04-29] MEDS: METRONIDAZOLE 500 MG PREMIXED 100 ML IVPB SCH ×3 (01:45→18:16)
[2016-04-29] MEDS: oxyCODONE HCL 5 MG TABLET PO PRN ×5 (02:47→21:28)
[2016-04-29] MEDS: ALPRAZolam 0.25 MG TABLET PO SCH ×3 (06:12→21:27)
[2016-04-29] MEDS: PANTOPRAZOLE SODIUM 80 MG in SODIUM CHLORIDE 100 ML IVPB SCH ×4 (06:12→18:15)
[2016-04-29] MEDS: MAG HYDROX/AL HYDROX/SIMETH 30 ML UNIT-DOSE CUP PO PRN (07:07)
[2016-04-29 07:28] LABS: BASOPHIL 0.9 % (0-2.0); EOSINOPHIL 9.3 % (0-4.5); MCH 31.7 pg (25.7-33.7); MCHC 34.6 g/dl (32.0-35.9); MEAN CELL VOLUME 91.4 fl (80-96); NEUTROPHILS 39.4 % (42.8-82.8); PLATELET COUNT 130 K/MM3 (134-434); RDW 13.3 % (11.9-15.9); WHITE BLOOD COUNT 4.2 K/mm3 (4.0-10.0)
[2016-04-29 07:45] LABS: INR 2.36 (0.82-1.09); PROTHROMBIN TIME (PATIENT) 26.4 SEC (9.98-11.88)
[2016-04-29 07:56] LABS: ALBUMIN 2.8 g/dl (3.4-5.0); ALK PHOS 40 U/L (45-117); ANION GAP 9 (8-16); BILIRUBIN,TOTAL 0.5 mg/dL (0.2-1.0); CO2 28 mmol/L (21-32); CREATININE 0.8 mg/dL (0.7-1.3); GLUCOSE,RANDOM 73 mg/dL (74-106); SGOT/AST 35 U/L (15-37); SGPT/ALT 25 U/L (12-78); TOT PROT 5.8 g/dl (6.4-8.2)
--- NOTE | 2016-04-29 08:57 | PN ---
Progress Note, Physician Chief Complaint: LAYING FLAT PAIN IMPROVED - Current Medication List Current Medications: Active Medications Acetaminophen (Tylenol -) 650 mg PO Q6H PRN PRN Reason: HEADACHE PAIN Last Admin: 04/28/16 20:50 Dose: 650 mg Al Hydroxide/Mg Hydroxide (Mylanta Oral Suspension -) 30 ml PO Q6H PRN PRN Reason: INDIGESTION Last Admin: 04/29/16 07:07 Dose: 30 ml Alprazolam (Xanax -) 1 mg PO TID [facility] Last Admin: 04/29/16 06:12 Dose: 1 mg Finasteride (Proscar -) 5 mg PO DAILY [facility] Metronidazole (Flagyl 500mg Premixed Ivpb -) 100 mls @ 100 mls/hr IVPB Q8H-IV [facility] Last Admin: 04/29/16 01:45 Dose: 100 mls/hr Sodium Chloride (Normal Saline -) 1,000 mls @ 150 mls/hr IV ASDIR [facility] Last Admin: 04/28/16 14:24 Dose: 150 mls/hr Pantoprazole Sodium 80 mg/ (Sodium Chloride) 100 mls @ 10 mls/hr IVPB Q10H [facility] PRN Reason: 8 MG/HR Last Admin: 04/29/16 06:12 Dose: Not Given Levetiracetam (Keppra -) 750 mg PO DAILY [facility] Lisinopril (Prinivil) 20 mg PO DAILY [facility] Metoprolol Succinate (Toprol Xl -) 12.5 mg PO DAILY [facility] Ondansetron HCl (Zofran Injection) 4 mg IVPB Q4H PRN PRN Reason: NAUSEA AND/OR VOMITING Oxycodone HCl (Roxicodone -) 20 mg PO Q4H PRN PRN Reason: PAIN Last Admin: 04/29/16 06:49 Dose: 20 mg Tamsulosin HCl (Flomax -) 0.4 mg PO DAILY@0830 [facility] - Objective Vital Signs: Vital Signs Temperature 97.7 F 04/29/16 06:13 Pulse Rate 70 04/29/16 06:13 Respiratory Rate 16 04/29/16 06:13 Blood Pressure 113/79 04/29/16 06:13 O2 Sat by Pulse Oximetry (%) 98 04/28/16 21:00 Constitutional: Yes: Calm Cardiovascular: Yes: WNL Respiratory: Yes: WNL Gastrointestinal: Yes: Tenderness. No: Tenderness, Rebound Edema: Yes Labs: CBC, BMP 04/29/16 06:00 04/29/16 06:00 INR, PTT INR 2.36 (0.82-1.09) H 04/29/16 06:00 Problem List - Problems (1) Atrial fibrillation Code(s): I48.91 - UNSPECIFIED ATRIAL FIBRILLATION Qualifiers: Atrial fibrillation type: chronic Qualified Code(s): I48.2 - Chronic atrial fibrillation (2) Colitis Code(s): K52.9 - NONINFECTIVE GASTROENTERITIS AND COLITIS, UNSPECIFIED Assessment/Plan (1) Atrial fibrillation Assessment/Plan: ac & plavix on hold GI on case -> endoscopy or colonoscopy planned when inr <2 protonix drip cardio on case -> Can hold coumadin for several days to allow for , can bridge with IV heparin when INR < 2.0. Will review cath records, can likely resume single antiplatelet therapy when source of possible bleed detected/treated. 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
[2016-04-29] MEDS ORDERED: PT OWN MED DRAWER 7, Y5N ONE (09:37)
[2016-04-29] MEDS: levETIRAcetam 500 MG TABLET (FP) PO SCH (11:00)
[2016-04-29] MEDS: FINASTERIDE 5 MG TABLET (FP) PO SCH (11:01)
[2016-04-29] MEDS: LISINOPRIL 20 MG TABLET (FP) PO SCH (11:01)
[2016-04-29] MEDS: METOPROLOL SUCCINATE 25 MG TAB.SR.24H (FP) PO SCH (11:01)
[2016-04-29] MEDS: TAMSULOSIN HCL 0.4 MG CAP.ER.24H (FP) PO SCH (11:01)
[2016-04-30] MEDS: PANTOPRAZOLE SODIUM 80 MG in SODIUM CHLORIDE 100 ML IVPB SCH ×4 (01:58→23:57)
[2016-04-30] MEDS: oxyCODONE HCL 5 MG TABLET PO PRN ×5 (02:57→19:54)
[2016-04-30] MEDS: METRONIDAZOLE 500 MG PREMIXED 100 ML IVPB SCH ×3 (02:58→18:39)
[2016-04-30] MEDS: ALPRAZolam 0.25 MG TABLET PO SCH ×3 (06:26→22:18)
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
[2016-04-30] MEDS ORDERED: PHYTONADIONE 10 MG/1 ML AMP SQ ONE ×2 (08:00→18:15)
[2016-04-30 08:21] LABS: EOSINOPHIL 5.1 % (0-4.5); MCH 31.6 pg (25.7-33.7); MCHC 34.9 g/dl (32.0-35.9); MEAN CELL VOLUME 90.6 fl (80-96); MEAN PLT VOLUME 7.2 fl (7.5-11.1); NEUTROPHILS 55.9 % (42.8-82.8); PLATELET COUNT 137 K/MM3 (134-434); RDW 13.5 % (11.9-15.9)
--- NOTE | 2016-04-30 08:22 | PN ---
Progress Note, Physician Chief Complaint: AWAKE ALERT SHARIF STILL INTACT NPO INR ELEVATED +ABD PAIN - Current Medication List Current Medications: Active Medications Acetaminophen (Tylenol -) 650 mg PO Q6H PRN PRN Reason: HEADACHE PAIN Last Admin: 04/28/16 20:50 Dose: 650 mg Al Hydroxide/Mg Hydroxide (Mylanta Oral Suspension -) 30 ml PO Q6H PRN PRN Reason: INDIGESTION Last Admin: 04/29/16 07:07 Dose: 30 ml Alprazolam (Xanax -) 1 mg PO TID [facility] Last Admin: 04/30/16 06:26 Dose: 1 mg Finasteride (Proscar -) 5 mg PO DAILY [facility] Last Admin: 04/29/16 11:01 Dose: 5 mg Metronidazole (Flagyl 500mg Premixed Ivpb -) 100 mls @ 100 mls/hr IVPB Q8H-IV [facility] Last Admin: 04/30/16 02:58 Dose: 100 mls/hr Pantoprazole Sodium 80 mg/ (Sodium Chloride) 100 mls @ 10 mls/hr IVPB Q10H [facility] PRN Reason: 8 MG/HR Last Admin: 04/30/16 01:58 Dose: 10 mls/hr Levetiracetam (Keppra -) 750 mg PO DAILY [facility] Last Admin: 04/29/16 11:00 Dose: 750 mg Lisinopril (Prinivil) 20 mg PO DAILY [facility] Last Admin: 04/29/16 11:01 Dose: 20 mg Metoprolol Succinate (Toprol Xl -) 12.5 mg PO DAILY [facility] Last Admin: 04/29/16 11:01 Dose: 12.5 mg Ondansetron HCl (Zofran Injection) 4 mg IVPB Q4H PRN PRN Reason: NAUSEA AND/OR VOMITING Last Admin: 04/29/16 22:36 Dose: 4 mg Oxycodone HCl (Roxicodone -) 20 mg PO Q4H PRN PRN Reason: PAIN Last Admin: 04/30/16 07:06 Dose: 20 mg Tamsulosin HCl (Flomax -) 0.4 mg PO DAILY@0830 [facility] Last Admin: 04/29/16 11:01 Dose: 0.4 mg - Objective Vital Signs: Vital Signs Temperature 97.6 F 04/30/16 06:27 Pulse Rate 84 04/30/16 06:27 Respiratory Rate 20 04/30/16 06:27 Blood Pressure 132/88 04/30/16 06:27 O2 Sat by Pulse Oximetry (%) 98 04/29/16 09:00 Constitutional: Yes: Mild Distress Eyes: Yes: WNL HENT: Yes: WNL Neck: Yes: WNL Cardiovascular: Yes: Pulse Irregular Respiratory: Yes: WNL Gastrointestinal: Yes: Distention, Tenderness Genitourinary: Yes: Sharif Present Musculoskeletal: Yes: Muscle Weakness Edema: Yes Peripheral Pulses WNL: Yes Integumentary: Yes: WNL Wound/Incision: Yes: Clean/Dry Neurological: Yes: Pre-Existing Deficit ...Motor Strength: LLE, RLE Psychiatric: Yes: Other Labs: INR, PTT INR 2.36 (0.82-1.09) H 04/29/16 06:00 Problem List - Problems (1) Atrial fibrillation Code(s): I48.91 - UNSPECIFIED ATRIAL FIBRILLATION Qualifiers: Atrial fibrillation type: chronic Qualified Code(s): I48.2 - Chronic atrial fibrillation (2) Back pain with radiation Code(s): M54.9 - DORSALGIA, UNSPECIFIED (3) Colitis Code(s): K52.9 - NONINFECTIVE GASTROENTERITIS AND COLITIS, UNSPECIFIED (4) Diarrhea in adult patient Code(s): R19.7 - DIARRHEA, UNSPECIFIED (5) Elevated INR Code(s): R79.1 - ABNORMAL COAGULATION PROFILE (6) Urinary retention Code(s): R33.9 - RETENTION OF URINE, UNSPECIFIED (7) Anxiety Code(s): F41.9 - ANXIETY DISORDER, UNSPECIFIED (8) Headache Code(s): R51 - HEADACHE Qualifiers: Headache type: unspecified Headache chronicity pattern: acute headache Assessment/Plan INR ELEVATED, VIT K GIVEN POSSIBLE COLONOSCOPY TOMORROW EVAL HEPARIN IV FOR AC IV ABX PAIN CONTROL
[2016-04-30 09:01] LABS: ALBUMIN 2.8 g/dl (3.4-5.0); ALK PHOS 43 U/L (45-117); ANION GAP 6 (8-16); BILIRUBIN,TOTAL 0.5 mg/dL (0.2-1.0); CO2 30 mmol/L (21-32); CREATININE 0.8 mg/dL (0.7-1.3); GLUCOSE,RANDOM 85 mg/dL (74-106); SGOT/AST 34 U/L (15-37); SGPT/ALT 28 U/L (12-78); TOT PROT 5.8 g/dl (6.4-8.2)
[2016-04-30 09:05] LABS: INR 2.2 (0.82-1.09); PROTHROMBIN TIME (PATIENT) 24.6 SEC (9.98-11.88)
[2016-04-30] MEDS: levETIRAcetam 500 MG TABLET (FP) PO SCH (10:49)
[2016-04-30] MEDS: LISINOPRIL 20 MG TABLET (FP) PO SCH (10:50)
[2016-04-30] MEDS: TAMSULOSIN HCL 0.4 MG CAP.ER.24H (FP) PO SCH (10:50)
[2016-04-30] MEDS: METOPROLOL SUCCINATE 25 MG TAB.SR.24H (FP) PO SCH (10:51)
[2016-04-30] MEDS: FINASTERIDE 5 MG TABLET (FP) PO SCH (10:51)
[2016-04-30] MEDS ORDERED: PT OWN MED DRAWER 7, Y5N ONE (11:34)
[2016-04-30] MEDS: MAG HYDROX/AL HYDROX/SIMETH 30 ML UNIT-DOSE CUP PO PRN ×2 (15:32→22:18)
[2016-04-30] MEDS: ACETAMINOPHEN 325 MG TABLET (FP) PO PRN ×2 (15:38→22:18)
[2016-04-30 17:21] LABS: INR 2.15 (0.82-1.09)
--- NOTE | 2016-04-30 18:29 | PN ---
GI Progress Note Subjective: GASTROENTEROLOGY SINCE ADMISSION NO STOOLS SENT TO LABS, NO DIARRHEA, INR STILL OVER 2.0 - Objective Vital Signs: Vital Signs Temperature 98.2 F 04/30/16 16:25 Pulse Rate 76 04/30/16 16:25 Respiratory Rate 22 04/30/16 16:25 Blood Pressure 149/82 04/30/16 16:25 O2 Sat by Pulse Oximetry (%) 98 04/29/16 09:00 Constitutional: Obese Eyes: Yes: Conjunctiva Clear HENT: Yes: Normocephalic Cardiovascular: Yes: WNL Respiratory: Yes: WNL Gastrointestinal Inspection: Yes: WNL ...Auscultate: Yes: Normoactive Bowel Sounds ...Palpate: Yes: Soft Extremities: Yes: WNL Labs: CBC, BMP 04/30/16 08:00 04/30/16 08:00 INR, PTT INR 2.15 (0.82-1.09) H 04/30/16 15:30 Problem List - Problems (1) Diarrhea in adult patient Assessment/Plan: NO CHANGE IN H&H NO DIARRHEA POSITIVE COLITIS ON CT SCAN Code(s): R19.7 - DIARRHEA, UNSPECIFIED (2) Colitis Assessment/Plan: NO DIARRHEA, NO STOOL SAMPLES SENT, INR STILL OVER 2.0 WILL WAIT FOR CORRECTION OF INR FOR ENDOSCOPIES Code(s): K52.9 - NONINFECTIVE GASTROENTERITIS AND COLITIS, UNSPECIFIED (3) Dark stools Code(s): R19.5 - OTHER FECAL ABNORMALITIES (4) Hep C w/o coma, chronic Code(s): B18.2 - CHRONIC VIRAL HEPATITIS C (5) Splenomegaly Code(s): R16.1 - SPLENOMEGALY, NOT ELSEWHERE CLASSIFIED (6) Atrial fibrillation Code(s): I48.91 - UNSPECIFIED ATRIAL FIBRILLATION Qualifiers: Atrial fibrillation type: chronic Qualified Code(s): I48.2 - Chronic atrial fibrillation (7) CHF exacerbation Code(s): I50.9 - HEART FAILURE, UNSPECIFIED Qualifiers: Congestive heart failure type: unspecified congestive heart failure type Qualified Code(s): I50.9 - Heart failure, unspecified
[2016-05-01] MEDS: oxyCODONE HCL 5 MG TABLET PO PRN ×5 (00:16→21:31)
[2016-05-01] MEDS: METRONIDAZOLE 500 MG PREMIXED 100 ML IVPB SCH ×2 (02:08→09:57)
[2016-05-01] MEDS: ALPRAZolam 0.25 MG TABLET PO SCH ×4 (05:46→21:30)
[2016-05-01 08:05] LABS: INR 1.95 (0.82-1.09); PROTHROMBIN TIME (PATIENT) 21.7 SEC (9.98-11.88)
[2016-05-01] MEDS ORDERED: levETIRAcetam 250 MG TABLET (FP) PO ONE (09:45)
[2016-05-01] MEDS ORDERED: levETIRAcetam 500 MG TABLET (FP) PO ONE (09:45)
[2016-05-01] MEDS: FINASTERIDE 5 MG TABLET (FP) PO SCH (09:58)
[2016-05-01] MEDS: METOPROLOL SUCCINATE 25 MG TAB.SR.24H (FP) PO SCH (09:58)
[2016-05-01] MEDS: LEVETIRACETAM 500 MG, LEVETIRACETAM 250 MG PO SCH (09:58)
[2016-05-01] MEDS: LISINOPRIL 20 MG TABLET (FP) PO SCH (09:58)
[2016-05-01] MEDS: PANTOPRAZOLE SODIUM 80 MG in SODIUM CHLORIDE 100 ML IVPB SCH (09:59)
[2016-05-01] MEDS: TAMSULOSIN HCL 0.4 MG CAP.ER.24H (FP) PO SCH (09:59)
[2016-05-01] MEDS ORDERED: HEPARIN NA (PORCINE) 5,000 UNITS/ML 1ML VIAL IVPUSH PRN ×2 (10:08)
--- NOTE | 2016-05-01 10:13 | PN ---
Progress Note, Physician Chief Complaint: AWAKE ALERT INR 1.9 TODAY START HEPARIN IV DRIP NO BOLUS - Current Medication List Current Medications: Active Medications Acetaminophen (Tylenol -) 650 mg PO Q6H PRN PRN Reason: HEADACHE PAIN Last Admin: 04/30/16 22:18 Dose: 650 mg Al Hydroxide/Mg Hydroxide (Mylanta Oral Suspension -) 30 ml PO Q6H PRN PRN Reason: INDIGESTION Last Admin: 04/30/16 22:18 Dose: 30 ml Alprazolam (Xanax -) 1 mg PO TID [facility] Last Admin: 05/01/16 05:46 Dose: 1 mg Finasteride (Proscar -) 5 mg PO DAILY [facility] Last Admin: 05/01/16 09:58 Dose: 5 mg Heparin Sodium (Porcine) (Heparin -) 1,000 unit IVPUSH PRN PRN PRN Reason: Heparin Heparin Sodium (Porcine) (Heparin -) 5,000 unit IVPUSH PRN PRN PRN Reason: Heparin Heparin Sodium/Dextrose (Heparin Infusion -) 500 mls @ 20 mls/hr IVPB TITR AMARI ; 1,000 UNITS/HR PRN Reason: Protocol Pantoprazole Sodium 40 mg/ (Sodium Chloride) 100 mls @ 200 mls/hr IVPB BID [facility] Levetiracetam 500 mg/ (Levetiracetam 250 mg) 750 mg PO DAILY [facility] Last Admin: 05/01/16 09:58 Dose: 750 mg Lisinopril (Prinivil) 20 mg PO DAILY [facility] Last Admin: 05/01/16 09:58 Dose: 20 mg Metoprolol Succinate (Toprol Xl -) 12.5 mg PO DAILY [facility] Last Admin: 05/01/16 09:58 Dose: 12.5 mg Ondansetron HCl (Zofran Injection) 4 mg IVPB Q4H PRN PRN Reason: NAUSEA AND/OR VOMITING Last Admin: 04/29/16 22:36 Dose: 4 mg Oxycodone HCl (Roxicodone -) 20 mg PO Q4H PRN PRN Reason: PAIN Last Admin: 05/01/16 06:35 Dose: 20 mg Tamsulosin HCl (Flomax -) 0.4 mg PO DAILY@0830 [facility] Last Admin: 05/01/16 09:59 Dose: 0.4 mg - Objective Vital Signs: Vital Signs Temperature 97.7 F 02/22/17 07:47 Pulse Rate 64 05/01/16 07:47 Respiratory Rate 20 05/01/16 07:47 Blood Pressure 124/58 05/01/16 07:47 O2 Sat by Pulse Oximetry (%) 98 04/30/16 21:00 Constitutional: Yes: Well Nourished Eyes: Yes: WNL HENT: Yes: WNL Neck: Yes: WNL Cardiovascular: Yes: Pulse Irregular Respiratory: Yes: WNL Gastrointestinal: Yes: WNL Genitourinary: Yes: Vasques Present Musculoskeletal: Yes: Muscle Weakness Extremities: Yes: WNL Edema: Yes Peripheral Pulses WNL: Yes Integumentary: Yes: WNL Wound/Incision: Yes: Clean/Dry Neurological: Yes: Other ...Motor Strength: LLE, RLE Psychiatric: Yes: WNL Labs: CBC, BMP 04/30/16 08:00 04/30/16 08:00 INR, PTT INR 1.95 (0.82-1.09) H 05/01/16 06:20 Problem List - Problems (1) Atrial fibrillation Code(s): I48.91 - UNSPECIFIED ATRIAL FIBRILLATION Qualifiers: Atrial fibrillation type: chronic Qualified Code(s): I48.2 - Chronic atrial fibrillation (2) Back pain with radiation Code(s): M54.9 - DORSALGIA, UNSPECIFIED (3) Colitis Code(s): K52.9 - NONINFECTIVE GASTROENTERITIS AND COLITIS, UNSPECIFIED (4) Diarrhea in adult patient Code(s): R19.7 - DIARRHEA, UNSPECIFIED (5) Elevated INR Code(s): R79.1 - ABNORMAL COAGULATION PROFILE (6) Urinary retention Code(s): R33.9 - RETENTION OF URINE, UNSPECIFIED (7) Anxiety Code(s): F41.9 - ANXIETY DISORDER, UNSPECIFIED (8) Headache Code(s): R51 - HEADACHE Qualifiers: Headache type: unspecified Headache chronicity pattern: acute headache Assessment/Plan INR 1.95, STARTING HEPARIN DRIP FOR AC CAN STOP 6HRS PRIOR TO COLONOSCOPY POSSIBLE COLONOSCOPY TOMORROW EVAL HEPARIN IV FOR AC IV ABX STOPPED PROTONIX CHANGED TO BID PAIN CONTROL
[2016-05-01] MEDS: HEPARIN INFUSION - 500 ML IVPB SCH (11:08)
[2016-05-01] MEDS: MAG HYDROX/AL HYDROX/SIMETH 30 ML UNIT-DOSE CUP PO PRN (11:12)
[2016-05-01] MEDS ORDERED: PHYTONADIONE 10 MG/1 ML AMP SQ ONE (12:30)
[2016-05-01] MEDS ORDERED: MAGNESIUM HYDROX 2400MG/30ML ORAL SUSPENSION 30 ML CUP PO ONE (16:00)
--- NOTE | 2016-05-01 19:03 | PN ---
Progress Note (short form) - Note Progress Note: Gastroenterolgy Patient constipated now, INR not too much better on Iv heparin called to do colonoscopy tomorrow Procedures not possible with this INR. I will prep the patient tomorrow and place him on the schedule for possible egd/colonoscopy on Friday. INR needs to be equal or less than 1.4. Reversing Warfarin as per medical team. Case discussed with the nursing staff. Ronnie Rivera MD Problem List - Problems (1) Diarrhea in adult patient Code(s): R19.7 - DIARRHEA, UNSPECIFIED (2) Colitis Code(s): K52.9 - NONINFECTIVE GASTROENTERITIS AND COLITIS, UNSPECIFIED (3) Dark stools Code(s): R19.5 - OTHER FECAL ABNORMALITIES (4) Hep C w/o coma, chronic Code(s): B18.2 - CHRONIC VIRAL HEPATITIS C (5) Splenomegaly Code(s): R16.1 - SPLENOMEGALY, NOT ELSEWHERE CLASSIFIED (6) Atrial fibrillation Code(s): I48.91 - UNSPECIFIED ATRIAL FIBRILLATION Qualifiers: Atrial fibrillation type: chronic Qualified Code(s): I48.2 - Chronic atrial fibrillation (7) CHF exacerbation Code(s): I50.9 - HEART FAILURE, UNSPECIFIED Qualifiers: Congestive heart failure type: unspecified congestive heart failure type Qualified Code(s): I50.9 - Heart failure, unspecified
--- NOTE | 2016-05-01 19:40 | PN ---
Progress Note (short form) - Note Progress Note: pATIENT SEEN AND EXAMINED constipated Last Vital Signs Temp Pulse Resp BP Pulse Ox 97.7 F 81 20 97/81 98 05/01/16 16:25 05/01/16 16:25 05/01/16 16:25 05/01/16 16:25 05/01/16 09:00 HEENT: SAUL, EOM Intact Oropharynx: No thrush, No mucositis Cor: RSR, No murmurs, No gallops Lungs: Clear to P&A Abd: Soft, Normal bowel sounds, No organomegaly Ext:No significant edema Abnormal Lab Results 05/01/16 06:20 INR 1.95 H Current Medications Acetaminophen (Tylenol -) 650 mg PO Q6H PRN PRN Reason: HEADACHE PAIN Last Admin: 04/30/16 22:18 Dose: 650 mg Al Hydroxide/Mg Hydroxide (Mylanta Oral Suspension -) 30 ml PO Q6H PRN PRN Reason: INDIGESTION Last Admin: 05/01/16 11:12 Dose: 30 ml Alprazolam (Xanax -) 1 mg PO TID [facility] Last Admin: 05/01/16 15:02 Dose: 1 mg Bisacodyl (Dulcolax -) 20 mg PO ONCE ONE Stop: 05/02/16 18:01 Finasteride (Proscar -) 5 mg PO DAILY [facility] Last Admin: 05/01/16 09:58 Dose: 5 mg Heparin Sodium (Porcine) (Heparin -) 1,000 unit IVPUSH PRN PRN PRN Reason: Heparin Heparin Sodium (Porcine) (Heparin -) 5,000 unit IVPUSH PRN PRN PRN Reason: Heparin Heparin Sodium/Dextrose (Heparin Infusion -) 500 mls @ 20 mls/hr IVPB TITR AMARI ; 1,000 UNITS/HR PRN Reason: Protocol Last Admin: 05/01/16 11:08 Dose: 20 mls/hr Pantoprazole Sodium (Protonix 40mg Ivpb (Pre-Docked)) 100 mls @ 200 mls/hr IVPB BID [facility] Levetiracetam 500 mg/ (Levetiracetam 250 mg) 750 mg PO DAILY [facility] Last Admin: 05/01/16 09:58 Dose: 750 mg Lisinopril (Prinivil) 20 mg PO DAILY [facility] Last Admin: 05/01/16 09:58 Dose: 20 mg Magnesium Hydroxide (Milk Of Magnesia -) 30 ml PO ONCE ONE Stop: 05/02/16 08:01 Metoprolol Succinate (Toprol Xl -) 12.5 mg PO DAILY [facility] Last Admin: 05/01/16 09:58 Dose: 12.5 mg Ondansetron HCl (Zofran Injection) 4 mg IVPB Q4H PRN PRN Reason: NAUSEA AND/OR VOMITING Last Admin: 04/29/16 22:36 Dose: 4 mg Oxycodone HCl (Roxicodone -) 20 mg PO Q4H PRN PRN Reason: PAIN Last Admin: 05/01/16 16:02 Dose: 20 mg Polyethylene Glycol (Miralax (For Bowel Prep) -) 255 gm PO ONCE ONE Stop: 05/02/16 14:01 Tamsulosin HCl (Flomax -) 0.4 mg PO DAILY@0830 [facility] Last Admin: 05/01/16 09:59 Dose: 0.4 mg a/p a/p 61 Y/O PATIENT WITH (1) Atrial fibrillation Assessment/Plan: On coumadin for chronic A.F. . Off coumadin since 04/24. (2) Elevated INR Assessment/Plan: Coumadin last taken 04/24. Also on ASA last taken 04/24 Plavix last taken 02/21. Patient has been on IV Flagyl since 04/24. This will tend to raise INR as it potentiates effect of coumadin. Patient also with history of liver disease with hepatitis C . There may be a component of liver disease which is also contributing to elevated INR. s/p vit. K 5mg this am INR 1.95 Started heparin as he is sedentary, obese, and has chronic A.F. Code(s): R79.1 - ABNORMAL COAGULATION PROFILE (3) Colitis Assessment/Plan: For endoscopic evaluation when INR is <1.4 Code(s): K52.9 - NONINFECTIVE GASTROENTERITIS AND COLITIS, UNSPECIFIED (4) Splenomegaly Assessment/Plan: Not palpable in view of body habitus; Likely secondary to underlying liver disease. Code(s): R16.1 - SPLENOMEGALY, NOT ELSEWHERE CLASSIFIED (5) CHF (congestive heart failure) Code(s): I50.9 - HEART FAILURE, UNSPECIFIED (6) Melena CBC stable
[2016-05-01 20:51] LABS: INR 1.58 (0.82-1.09); PROTHROMBIN TIME (PATIENT) 17.5 SEC (9.98-11.88)
[2016-05-01 20:53] LABS: ACTIVATED PTT 72.6 SECONDS (26.9-34.4)
[2016-05-02] MEDS: ACETAMINOPHEN 325 MG TABLET (FP) PO PRN (02:22)
[2016-05-02] MEDS: oxyCODONE HCL 5 MG TABLET PO PRN ×5 (02:22→20:26)
[2016-05-02] MEDS ORDERED: PT OWN MED DRAWER 7, Y5N ONE (03:55)
[2016-05-02] MEDS: ALPRAZolam 0.25 MG TABLET PO SCH ×3 (06:05→21:15)
[2016-05-02] MEDS ORDERED: MAGNESIUM HYDROX 2400MG/30ML ORAL SUSPENSION 30 ML CUP PO ONE (08:00)
--- NOTE | 2016-05-02 08:24 | CON.GU ---
Consult Consult Specialty:: urology Referred by:: Drew - History of Present Illness Chief Complaint: urinary retention History of Present Illness: Patient with history of CHF and Afib with abonormal coagaulation profile who presented with melena and acute urinary retention. The patient is on flomax for bph and experienced acute retention. The patient had the cline removed yesterday and is currently voiding well. The patient reports that he feels he is emptying his bladder. 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 Medical History [employer]: Yes: Other (craniotomy s/p evacuation [facility] ) Cardio/Vascular: Yes: AFIB, CAD (prior PCI (> 1 year ago)), CHF (chronic primarily diastolic), HTN, Other (PCI) Pulmonary: Yes: COPD Gastrointestinal: Yes: Other (6 years earlier -negative EGD and colonoscopy) Hepatobiliary: Yes: Cirrhosis, Hepatitis C, Other (patient does not admit to cirrhosis (normal liver on ct scan does have splenomegaly)) Renal/: Yes: BPH, Renal Calculi Psych: Yes: Anxiety, Depression Musculoskeletal: Yes: Chronic low back pain, Osteoarthritis Endocrine: Yes: Diabetes Mellitus - Past Surgical History Past Surgical History: Yes: Colonoscopy, Upper Endoscopy - Alcohol/Substance Use Hx Alcohol Use: No (prior heavy alcohol intake-discontinued 20 years earlier) History of Substance Use: reports: None - Smoking History Smoking history: Former smoker Have you smoked in the past 12 months: No Aproximately how many cigarettes per day: 0 If you are a former smoker, when did you quit?: 20 years earlier - Social History Usual Living Arrangement: With Child ADL: Family Assistance Occupation: worked in [employer] with exposures History of Recent Travel: No Home Medications - Allergies Allergies/Adverse Reactions: Allergies Allergy/AdvReac Type Severity Reaction Status Date / Time No Known Allergies Allergy Verified 12/23/15 22:39 - Home Medications Home Medications: Ambulatory Orders Alprazolam [Xanax] 1 mg PO TID 03/28/13 Aspirin Coated [Ecotrin -] 81 mg PO DAILY tablet.ec 07/06/14 Mag Hydrox/Al Hydrox/Simeth [Mylanta Oral Suspension -] 30 ml PO Q6H PRN #0 cup 08/20/14 Metoprolol Succinate [Toprol XL -] 12.5 mg PO DAILY 05/21/15 Oxycodone HCl 20 mg PO TID MDD 60 05/21/15 Finasteride [Proscar -] 5 mg PO DAILY tablet 05/26/15 Polyethylene Glycol 3350 [Miralax 119 gm Btl -] 17 gm PO DAILY bottle 05/26/15 Clopidogrel Bisulfate [Plavix -] 75 mg PO DAILY 12/20/15 Levetiracetam [Keppra -] 750 mg PO DAILY 12/20/15 Tamsulosin HCl [Flomax] 0.4 mg PO DAILY 12/26/15 Lisinopril [Zestril] 25 mg PO DAILY 04/24/16 Warfarin Na [Coumadin -] 2.5 mg PO DAILY@1800 04/24/16 Furosemide [Lasix] 40 mg PO DAILY PRN 04/30/16 Family Disease History - Family Disease History Family Disease History: Heart Disease: Sister ([place] in her early 60s), [place]: Brother , Other: Mother (P.E. post hip surgery) Other Family History: 1 brother with lung cancer;. 1 sister with bone cancer Physical Exam- Vital Signs: Vital Signs Temperature 98.3 F 05/02/16 06:23 Pulse Rate 72 05/02/16 06:23 Respiratory Rate 20 05/02/16 06:23 Blood Pressure 125/65 05/02/16 06:23 O2 Sat by Pulse Oximetry (%) 98 05/01/16 21:00 Constitutional: Yes: Well Nourished Eyes: Yes: WNL, Conjunctiva Clear, EOM Intact HENT: Yes: WNL, Atraumatic, Normocephalic Neck: Yes: WNL, Supple, Trachea Midline Gastrointestinal: Yes: Abdomen, Obese Renal/: Yes: WNL Kidneys: Yes: WNL Pelvis: Yes: Bladder Non Palpable Testicles: Yes: WNL Scrotum: Yes: WNL Penis: Yes: WNL Prostate Exam: Yes: Swollen Labs: CBC, BMP 04/30/16 08:00 04/30/16 08:00 Imaging - Results Cat Scan: Report Reviewed Assessment/Plan impression bph acute urinary retention plan continue flomax will follow-up as outpatient
[2016-05-02] MEDS: TAMSULOSIN HCL 0.4 MG CAP.ER.24H (FP) PO SCH (08:38)
[2016-05-02] MEDS: HEPARIN INFUSION - 500 ML IVPB SCH ×2 (08:38→10:49)
[2016-05-02 08:42] LABS: INR 1.4 (0.82-1.09); PROTHROMBIN TIME (PATIENT) 15.5 SEC (9.98-11.88)
[2016-05-02] MEDS ORDERED: levETIRAcetam 500 MG TABLET (FP) PO ONE (10:50)
[2016-05-02] MEDS ORDERED: levETIRAcetam 250 MG TABLET (FP) PO ONE (10:50)
[2016-05-02] MEDS: LEVETIRACETAM 500 MG, LEVETIRACETAM 250 MG PO SCH (10:53)
[2016-05-02] MEDS: LISINOPRIL 20 MG TABLET (FP) PO SCH (10:53)
[2016-05-02] MEDS: FINASTERIDE 5 MG TABLET (FP) PO SCH (10:53)
[2016-05-02] MEDS: METOPROLOL SUCCINATE 25 MG TAB.SR.24H (FP) PO SCH (10:54)
[2016-05-02 10:56] LABS: ALBUMIN 2.9 g/dl (3.4-5.0); ALK PHOS 45 U/L (45-117); ANION GAP 7 (8-16); BILIRUBIN,TOTAL 0.5 mg/dL (0.2-1.0); CALCIUM 8.2 mg/dL (8.5-10.1); CO2 30 mmol/L (21-32); GLUCOSE,RANDOM 133 mg/dL (74-106); SGOT/AST 29 U/L (15-37); SGPT/ALT 23 U/L (12-78); TOT PROT 5.9 g/dl (6.4-8.2)
--- NOTE | 2016-05-02 11:36 | PN ---
Progress Note, Physician Chief Complaint: AWAKE AND ALERT DENIES CHEST PAIN OR DYSPNEA COMFORTABLE INR 1.4, PREP GIVEN FOR GI WORKUP - Current Medication List Current Medications: Active Medications Acetaminophen (Tylenol -) 650 mg PO Q6H PRN PRN Reason: HEADACHE PAIN Last Admin: 05/02/16 02:22 Dose: 650 mg Al Hydroxide/Mg Hydroxide (Mylanta Oral Suspension -) 30 ml PO Q6H PRN PRN Reason: INDIGESTION Last Admin: 05/01/16 11:12 Dose: 30 ml Alprazolam (Xanax -) 1 mg PO TID [facility] Last Admin: 05/02/16 06:05 Dose: 1 mg Bisacodyl (Dulcolax -) 20 mg PO ONCE ONE Stop: 05/02/16 18:01 Finasteride (Proscar -) 5 mg PO DAILY [facility] Last Admin: 05/02/16 10:53 Dose: 5 mg Heparin Sodium (Porcine) (Heparin -) 1,000 unit IVPUSH PRN PRN PRN Reason: Heparin Heparin Sodium (Porcine) (Heparin -) 5,000 unit IVPUSH PRN PRN PRN Reason: Heparin Heparin Sodium/Dextrose (Heparin Infusion -) 500 mls @ 20 mls/hr IVPB TITR [facility] ; 1,000 UNITS/HR PRN Reason: Protocol Last Admin: 05/02/16 10:49 Dose: Not Given Pantoprazole Sodium (Protonix 40mg Ivpb (Pre-Docked)) 100 mls @ 200 mls/hr IVPB BID [facility] Levetiracetam 500 mg/ (Levetiracetam 250 mg) 750 mg PO DAILY [facility] Last Admin: 05/02/16 10:53 Dose: 750 mg Lisinopril (Prinivil) 20 mg PO DAILY [facility] Last Admin: 05/02/16 10:53 Dose: 20 mg Metoprolol Succinate (Toprol Xl -) 12.5 mg PO DAILY [facility] Last Admin: 05/02/16 10:54 Dose: 12.5 mg Ondansetron HCl (Zofran Injection) 4 mg IVPB Q4H PRN PRN Reason: NAUSEA AND/OR VOMITING Last Admin: 04/29/16 22:36 Dose: 4 mg Oxycodone HCl (Roxicodone -) 20 mg PO Q4H PRN PRN Reason: PAIN Last Admin: 05/02/16 11:27 Dose: 20 mg Polyethylene Glycol (Miralax (For Bowel Prep) -) 255 gm PO ONCE ONE Stop: 05/02/16 14:01 Tamsulosin HCl (Flomax -) 0.4 mg PO DAILY@0830 [facility] Last Admin: 05/02/16 08:38 Dose: 0.4 mg - Objective Vital Signs: Vital Signs Temperature 98.6 F 05/02/16 10:00 Pulse Rate 70 05/02/16 10:00 Respiratory Rate 20 05/02/16 10:00 Blood Pressure 130/85 05/02/16 10:00 O2 Sat by Pulse Oximetry (%) 98 05/01/16 21:00 Constitutional: Yes: No Distress Eyes: Yes: WNL HENT: Yes: WNL Neck: Yes: WNL Cardiovascular: Yes: Pulse Irregular Respiratory: Yes: WNL Gastrointestinal: Yes: WNL Genitourinary: Yes: WNL Musculoskeletal: Yes: Back Pain, Joint Stiffness Extremities: Yes: WNL Edema: Yes Edema: LLE: Trace, RLE: Trace Peripheral Pulses WNL: Yes Integumentary: Yes: WNL Wound/Incision: Yes: Clean/Dry Neurological: Yes: Numbness, Pre-Existing Deficit ...Motor Strength: LLE, RLE Psychiatric: Yes: Other Labs: CBC, BMP 04/30/16 08:00 05/02/16 09:35 INR, PTT INR 1.40 (0.82-1.09) H 05/02/16 07:00 Fibrinogen 292.0 mg/dL (238-498) 05/02/16 07:00 Problem List - Problems (1) Atrial fibrillation Code(s): I48.91 - UNSPECIFIED ATRIAL FIBRILLATION Qualifiers: Atrial fibrillation type: chronic Qualified Code(s): I48.2 - Chronic atrial fibrillation (2) Back pain with radiation Code(s): M54.9 - DORSALGIA, UNSPECIFIED (3) Colitis Code(s): K52.9 - NONINFECTIVE GASTROENTERITIS AND COLITIS, UNSPECIFIED (4) Diarrhea in adult patient Code(s): R19.7 - DIARRHEA, UNSPECIFIED (5) Elevated INR Code(s): R79.1 - ABNORMAL COAGULATION PROFILE (6) Urinary retention Code(s): R33.9 - RETENTION OF URINE, UNSPECIFIED (7) Anxiety Code(s): F41.9 - ANXIETY DISORDER, UNSPECIFIED (8) Headache Code(s): R51 - HEADACHE Qualifiers: Headache type: unspecified Headache chronicity pattern: acute headache Assessment/Plan INR 1.4, STARTING HEPARIN DRIP FOR AC CAN STOP 6HRS PRIOR TO COLONOSCOPY POSSIBLE COLONOSCOPY TOMORROW EVAL PENDING IV ABX STOPPED PROTONIX CHANGED TO BID PAIN CONTROL
[2016-05-02] MEDS ORDERED: POLYETHYLENE GLYCOL 3350 255 GM BTL PO ONE (14:00)
--- NOTE | 2016-05-02 17:23 | PN ---
GI Progress Note Subjective: GASTROENTEROLOGY TOLERATING PREP, STARTING TO HAVE BM'S - Objective Vital Signs: Vital Signs Temperature 98.2 F 05/02/16 16:30 Pulse Rate 126 H 05/02/16 16:30 Respiratory Rate 18 05/02/16 16:30 Blood Pressure 98/62 05/02/16 16:30 O2 Sat by Pulse Oximetry (%) 95 05/02/16 09:00 Constitutional: Obese Eyes: Yes: Conjunctiva Clear HENT: Yes: Normocephalic Neck: Yes: Supple Cardiovascular: Yes: Regular Rate and Rhythm Respiratory: Yes: WNL Gastrointestinal Inspection: Yes: WNL ...Auscultate: Yes: Normoactive Bowel Sounds ...Palpate: Yes: Soft Extremities: Yes: WNL Labs: CBC, BMP 04/30/16 08:00 05/02/16 09:35 INR, PTT INR 1.40 (0.82-1.09) H 05/02/16 07:00 Fibrinogen 292.0 mg/dL (238-498) 05/02/16 07:00 Problem List - Problems (1) Diarrhea in adult patient Assessment/Plan: INR NOW APPROPRIATE, STARTED BOWEL PREP, NPO P MN START IV NS WITH 10MEG OF KCL AT 2300HRS, FOR EGD AND COLONOSCOPY FRIDAY RISKS AND BENEFITS EXPLAINED TO PATIENT A NUMBER OF TIMES THIS WEEK. Code(s): R19.7 - DIARRHEA, UNSPECIFIED (2) Colitis Assessment/Plan: ABOVE Code(s): K52.9 - NONINFECTIVE GASTROENTERITIS AND COLITIS, UNSPECIFIED (3) Dark stools Code(s): R19.5 - OTHER FECAL ABNORMALITIES (4) Hep C w/o coma, chronic Code(s): B18.2 - CHRONIC VIRAL HEPATITIS C (5) Splenomegaly Code(s): R16.1 - SPLENOMEGALY, NOT ELSEWHERE CLASSIFIED (6) Atrial fibrillation Code(s): I48.91 - UNSPECIFIED ATRIAL FIBRILLATION Qualifiers: Atrial fibrillation type: chronic Qualified Code(s): I48.2 - Chronic atrial fibrillation (7) CHF exacerbation Code(s): I50.9 - HEART FAILURE, UNSPECIFIED Qualifiers: Congestive heart failure type: unspecified congestive heart failure type Qualified Code(s): I50.9 - Heart failure, unspecified
[2016-05-02] MEDS ORDERED: BISACODYL 5 MG TABLET.DR (FP) PO ONE (18:00)
[2016-05-02] MEDS: PANTOPRAZOLE SODIUM 100 ML IVPB SCH (21:16)
[2016-05-02] MEDS: POTASSIUM CHLORIDE 10 MEQ in SODIUM CHLORIDE 1,000 ML IVPB SCH (22:30)
[2016-05-03] MEDS: oxyCODONE HCL 5 MG TABLET PO PRN ×5 (02:27→23:25)
[2016-05-03] MEDS: ALPRAZolam 0.25 MG TABLET PO SCH ×3 (05:55→23:22)
[2016-05-03 07:47] LABS: MCH 31.9 pg (25.7-33.7); MEAN CELL VOLUME 91.2 fl (80-96); MEAN PLT VOLUME 7.3 fl (7.5-11.1); PLATELET COUNT 145 K/MM3 (134-434); RDW 13.7 % (11.9-15.9); WHITE BLOOD COUNT 7.4 K/mm3 (4.0-10.0)
[2016-05-03 07:59] LABS: INR 1.27 (0.82-1.09)
[2016-05-03] MEDS: POTASSIUM CHLORIDE 10 MEQ in SODIUM CHLORIDE 1,000 ML IVPB SCH (07:59)
[2016-05-03] MEDS: TAMSULOSIN HCL 0.4 MG CAP.ER.24H (FP) PO SCH (07:59)
[2016-05-03 08:17] LABS: CALCIUM 8.4 mg/dL (8.5-10.1); CREATININE 1.1 mg/dL (0.7-1.3)
[2016-05-03] MEDS ORDERED: levETIRAcetam 500 MG TABLET (FP) PO ONE (09:57)
[2016-05-03] MEDS ORDERED: levETIRAcetam 250 MG TABLET (FP) PO ONE (09:57)
[2016-05-03] MEDS: FINASTERIDE 5 MG TABLET (FP) PO SCH (10:00)
[2016-05-03] MEDS: LEVETIRACETAM 500 MG, LEVETIRACETAM 250 MG PO SCH (10:00)
[2016-05-03] MEDS: PANTOPRAZOLE SODIUM 100 ML IVPB SCH ×2 (10:00→23:23)
[2016-05-03] MEDS: LISINOPRIL 20 MG TABLET (FP) PO SCH (10:00)
[2016-05-03] MEDS: METOPROLOL SUCCINATE 25 MG TAB.SR.24H (FP) PO SCH (10:01)
[2016-05-03] MEDS ORDERED: PROPOFOL 20 ML ONE ×3 (15:35)
--- NOTE | 2016-05-03 17:45 | PN ---
Progress Note (short form) - Note Progress Note: GASTROENTEROLOGY SEE ENDO REPORTS: EGD: NORMAL; COLONOSCOPY: COLITIS SIGMOID COLON BIOPSY TAKEN NOW C DIFF aG + TOXIN NEGATIVE, NO SYMPTOMS OR STOOL IN HOSPITAL TREATED WITH FLAGYL ASK ID ABOUT NEXT STEP CONTINUED RX?? RESTART HEPARIN WITHOUT BOLUS AT 10 PM FOLLOW UP BIOPSIES 1800 [address] FIBER DIET MYCHAL JIMENEZ MD Problem List - Problems (1) Diarrhea in adult patient Code(s): R19.7 - DIARRHEA, UNSPECIFIED (2) Colitis Code(s): K52.9 - NONINFECTIVE GASTROENTERITIS AND COLITIS, UNSPECIFIED (3) Dark stools Code(s): R19.5 - OTHER FECAL ABNORMALITIES (4) Hep C w/o coma, chronic Code(s): B18.2 - CHRONIC VIRAL HEPATITIS C (5) Splenomegaly Code(s): R16.1 - SPLENOMEGALY, NOT ELSEWHERE CLASSIFIED (6) Atrial fibrillation Code(s): I48.91 - UNSPECIFIED ATRIAL FIBRILLATION Qualifiers: Atrial fibrillation type: chronic Qualified Code(s): I48.2 - Chronic atrial fibrillation (7) CHF exacerbation Code(s): I50.9 - HEART FAILURE, UNSPECIFIED Qualifiers: Congestive heart failure type: unspecified congestive heart failure type Qualified Code(s): I50.9 - Heart failure, unspecified
[2016-05-03] MEDS: ACETAMINOPHEN 325 MG TABLET (FP) PO PRN (20:10)
[2016-05-03] MEDS: MAG HYDROX/AL HYDROX/SIMETH 30 ML UNIT-DOSE CUP PO PRN (20:55)
[2016-05-03] MEDS: HEPARIN INFUSION - 500 ML IVPB SCH (23:24)
[2016-05-04] MEDS: oxyCODONE HCL 5 MG TABLET PO PRN ×5 (03:36→23:36)
[2016-05-04] MEDS: ALPRAZolam 0.25 MG TABLET PO SCH ×3 (06:23→22:36)
[2016-05-04 08:51] LABS: MCH 31.7 pg (25.7-33.7); MCHC 34.9 g/dl (32.0-35.9); MEAN PLT VOLUME 7.3 fl (7.5-11.1); PLATELET COUNT 150 K/MM3 (134-434); RDW 13.6 % (11.9-15.9)
--- NOTE | 2016-05-04 09:06 | PN ---
Progress Note (short form) - Note Progress Note: ID Consult dictated Colitis/ Proctitis on endoscopy + C difficile Ag Advise Flagyl 500mg po tid x14d
[2016-05-04] MEDS ORDERED: levETIRAcetam 500 MG TABLET (FP) PO ONE (09:49)
[2016-05-04] MEDS ORDERED: levETIRAcetam 250 MG TABLET (FP) PO ONE (09:50)
[2016-05-04] MEDS: TAMSULOSIN HCL 0.4 MG CAP.ER.24H (FP) PO SCH (09:59)
[2016-05-04] MEDS: LEVETIRACETAM 500 MG, LEVETIRACETAM 250 MG PO SCH (09:59)
[2016-05-04 10:00] LABS: INR 1.25 (0.82-1.09); PROTHROMBIN TIME (PATIENT) 13.8 SEC (9.98-11.88)
[2016-05-04] MEDS: LISINOPRIL 20 MG TABLET (FP) PO SCH (10:00)
[2016-05-04] MEDS: METOPROLOL SUCCINATE 25 MG TAB.SR.24H (FP) PO SCH (10:00)
[2016-05-04] MEDS: PANTOPRAZOLE SODIUM 100 ML IVPB SCH ×2 (10:01→22:37)
[2016-05-04] MEDS: FINASTERIDE 5 MG TABLET (FP) PO SCH (10:01)
[2016-05-04] MEDS: ACETAMINOPHEN 325 MG TABLET (FP) PO PRN ×2 (11:00→17:24)
[2016-05-04] MEDS ORDERED: oxyCODONE HCL 5 MG TABLET PO ONE (12:30)
--- NOTE | 2016-05-04 13:16 | PN ---
Progress Note, Physician - Current Medication List Current Medications: Active Medications Acetaminophen (Tylenol -) 650 mg PO Q6H PRN PRN Reason: HEADACHE PAIN Last Admin: 05/04/16 11:00 Dose: 650 mg Al Hydroxide/Mg Hydroxide (Mylanta Oral Suspension -) 30 ml PO Q6H PRN PRN Reason: INDIGESTION Last Admin: 05/03/16 20:55 Dose: 30 ml Alprazolam (Xanax -) 1 mg PO TID [facility] Last Admin: 05/04/16 06:23 Dose: 1 mg Finasteride (Proscar -) 5 mg PO DAILY [facility] Last Admin: 05/04/16 10:01 Dose: 5 mg Pantoprazole Sodium (Protonix 40mg Ivpb (Pre-Docked)) 100 mls @ 200 mls/hr IVPB BID [facility] Last Admin: 05/04/16 10:01 Dose: 200 mls/hr Heparin Sodium/Dextrose (Heparin Infusion -) 500 mls @ 20 mls/hr IVPB TITR [facility] ; 1,000 UNITS/HR PRN Reason: Protocol Last Titration: 05/04/16 10:01 Dose: 1,000 units/hr Levetiracetam 500 mg/ (Levetiracetam 250 mg) 750 mg PO DAILY [facility] Last Admin: 05/04/16 09:59 Dose: 750 mg Lisinopril (Prinivil) 20 mg PO DAILY [facility] Last Admin: 05/04/16 10:00 Dose: 20 mg Metoprolol Succinate (Toprol Xl -) 12.5 mg PO DAILY [facility] Last Admin: 05/04/16 10:00 Dose: 12.5 mg Metronidazole (Flagyl -) 500 mg PO TID [facility] Ondansetron HCl (Zofran Injection) 4 mg IVPB Q4H PRN PRN Reason: NAUSEA AND/OR VOMITING Last Admin: 04/29/16 22:36 Dose: 4 mg Oxycodone HCl (Roxicodone -) 20 mg PO Q6H PRN PRN Reason: PAIN Tamsulosin HCl (Flomax -) 0.4 mg PO DAILY@0830 [facility] Last Admin: 05/04/16 09:59 Dose: 0.4 mg - Objective Vital Signs: Vital Signs Temperature 98.6 F 05/03/16 22:00 Pulse Rate 80 05/04/16 10:00 Respiratory Rate 18 05/04/16 10:00 Blood Pressure 132/86 05/04/16 10:00 O2 Sat by Pulse Oximetry (%) 98 05/03/16 21:00 Cardiovascular: Yes: Regular Rate and Rhythm Respiratory: Yes: Regular, CTA Bilaterally Gastrointestinal: Yes: Normal Bowel Sounds, Soft. No: Tenderness Labs: CBC, BMP 05/04/16 08:10 05/03/16 06:30 INR, PTT INR 1.25 (0.82-1.09) H 05/04/16 08:10 Fibrinogen 292.0 mg/dL (238-498) 05/02/16 07:00 Assessment/Plan - Problems (1) Atrial fibrillation Assessment/Plan: couamdin AND HEPARIN cardio on board Code(s): I48.91 - UNSPECIFIED ATRIAL FIBRILLATION Qualifiers: Atrial fibrillation type: chronic Qualified Code(s): I48.2 - Chronic atrial fibrillation (2) Colitis Assessment/Plan: levaquin ad flagyl R/O CDIF---ID GI SEE ENDO REPORTS: EGD: NORMAL; COLONOSCOPY: COLITIS SIGMOID COLON BIOPSY TAKEN NOW C DIFF aG + TOXIN NEGATIVE, NO SYMPTOMS OR STOOL IN HOSPITAL TREATED WITH FLAGYL ASK ID ABOUT NEXT STEP CONTINUED RX?? RESTART HEPARIN WITHOUT BOLUS AT 10 PM FOLLOW UP BIOPSIES [address] F[address]ER DIET Code(s): K52.9 - NONINFECTIVE GASTROENTERITIS AND COLITIS, UNSPECIFIED (3) Melena Assessment/Plan: RESOLVED Code(s): K92.1 - MELENA (4) Urinary retention Assessment/Plan: cline cath bladder sono flomax Code(s): R33.9 - RETENTION OF URINE, UNSPECIFIED
--- NOTE | 2016-05-04 13:56 | CONS ---
DATE OF CONSULTATION: DATE OF DICTATION: 05/04/2016 INFECTIOUS DISEASE CONSULTATION HISTORY OF PRESENT ILLNESS: The patient is a 61-year-old male who is evaluated for C. difficile colitis. The patient was admitted to the hospital on April 24, 2016 with complaints of lower abdominal pain and dark stool. A CAT scan performed on admission showed evidence of colitis and proctitis involving the sigmoid colon and rectal area. He underwent an endoscopy and was found to have endoscopic evidence of colitis. A C. difficile antigen and was positive toxin negative. The patient had complained of crampy abdominal pain post procedure. An abdominal x-ray showed no evidence of free air. He reports having a loose bowel movement yesterday. At the present time he is comfortable and he denies any crampy abdominal pain and no complaints of diarrhea this morning. No fever or chills. PAST MEDICAL HISTORY: Positive for morbid obesity, history of chronic pain syndrome secondary to back pain and shoulder pain, atrial fibrillation, congestive heart failure, coronary artery disease, COPD, history of hepatitis C with cirrhosis. PAST SURGICAL HISTORY: Status post craniotomy for intracranial bleed. ALLERGIES: No known drug allergies. MEDICATIONS: Zofran, Flomax, Tylenol, Prinivil, Xanax, Toprol, oxycodone, Proscar, Protonix. SOCIAL HISTORY: Former smoker, denies active alcohol or substance abuse. REVIEW OF SYSTEMS: NEUROLOGIC: No loss of consciousness, seizure activity, focal weakness. CARDIAC: Negative for chest pain or palpitations. RESPIRATORY: Negative for cough or sputum production. GASTROINTESTINAL: As per HPI. GENITOURINARY: Negative for urinary tract infection. LABORATORY DATA: White count is 7.4, creatinine 1.1. C. difficile antigen positive. Blood cultures are negative. PHYSICAL EXAMINATION: GENERAL: Awake and alert and in no acute distress, morbidly obese. VITAL SIGNS: Temperature 98.6, blood pressure 130/75, pulse 98 regular, respirations 18 per minute. HEENT: Sclerae anicteric. HEART: S1, S2, irregular. LUNGS: Clear. ABDOMEN: Obese, soft, hypoactive bowel sounds, no tenderness elicited. No mass, rebound or rigidity. EXTREMITIES: Positive for edema. IMPRESSION: 1. Endoscopic evidence of colitis. 2. Positive Clostridium difficile antigen. 3. Recent diarrhea. RECOMMENDATIONS: Advised treatment for C. difficile colitis in light of symptoms and endoscopic findings in the setting of a positive C. difficile antigen. Start Flagyl 500 mg p.o. 3 times daily complete a 14-day course, contact precautions. Thank you for the kind referral. MELISSA GIRON M.D. [id number]
[2016-05-04] MEDS ORDERED: metroNIDAZOLE 250 MG TABLET PO SCH (14:00)
--- NOTE | 2016-05-04 18:32 | PN ---
Progress Note (short form) - Note Progress Note: pATIENT SEEN AND EXAMINED s/p EGD/colonoscopy Last Vital Signs Temp Pulse Resp BP Pulse Ox 98 F 91 H 18 115/78 98 05/04/16 16:30 05/04/16 16:30 05/04/16 16:30 05/04/16 16:30 05/03/16 21:00 HEENT: SAUL, EOM Intact Oropharynx: No thrush, No mucositis Cor: RSR, No murmurs, No gallops Lungs: Clear to P&A Abd: Soft, Normal bowel sounds, No organomegaly Ext:No significant edema Abnormal Lab Results 05/04/16 05/04/16 05/04/16 08:10 08:10 08:10 MPV 7.3 L INR 1.25 H PTT (Actin FS) 59.9 H Current Medications Acetaminophen (Tylenol -) 650 mg PO Q6H PRN PRN Reason: HEADACHE PAIN Last Admin: 05/04/16 17:24 Dose: 650 mg Al Hydroxide/Mg Hydroxide (Mylanta Oral Suspension -) 30 ml PO Q6H PRN PRN Reason: INDIGESTION Last Admin: 05/03/16 20:55 Dose: 30 ml Alprazolam (Xanax -) 1 mg PO TID [facility] Last Admin: 05/04/16 15:01 Dose: 1 mg Finasteride (Proscar -) 5 mg PO DAILY [facility] Last Admin: 05/04/16 10:01 Dose: 5 mg Pantoprazole Sodium (Protonix 40mg Ivpb (Pre-Docked)) 100 mls @ 200 mls/hr IVPB BID [facility] Last Admin: 05/04/16 10:01 Dose: 200 mls/hr Heparin Sodium/Dextrose (Heparin Infusion -) 500 mls @ 20 mls/hr IVPB TITR [facility] ; 1,000 UNITS/HR PRN Reason: Protocol Last Titration: 05/04/16 10:01 Dose: 1,000 units/hr Levetiracetam 500 mg/ (Levetiracetam 250 mg) 750 mg PO DAILY [facility] Last Admin: 05/04/16 09:59 Dose: 750 mg Lisinopril (Prinivil) 20 mg PO DAILY [facility] Last Admin: 05/04/16 10:00 Dose: 20 mg Metoprolol Succinate (Toprol Xl -) 12.5 mg PO DAILY [facility] Last Admin: 05/04/16 10:00 Dose: 12.5 mg Metronidazole (Flagyl -) 500 mg PO TID [facility] Last Admin: 05/04/16 15:02 Dose: 500 mg Ondansetron HCl (Zofran Injection) 4 mg IVPB Q4H PRN PRN Reason: NAUSEA AND/OR VOMITING Last Admin: 04/29/16 22:36 Dose: 4 mg Oxycodone HCl (Roxicodone -) 20 mg PO Q6H PRN PRN Reason: PAIN Last Admin: 05/04/16 17:24 Dose: 20 mg Tamsulosin HCl (Flomax -) 0.4 mg PO DAILY@0830 [facility] Last Admin: 05/04/16 09:59 Dose: 0.4 mg a/p 61 Y/O PATIENT WITH (1) Atrial fibrillation On coumadin for chronic A.F. . Off coumadin since 04/24. (2) Elevated INR s/p vit. K being bridged back heparin to coumadin (3) Colitis colonoscopy --sigmoid colitis--biopsies pending c.diff ag +/toxin neg (4) Splenomegaly Assessment/Plan: Not palpable in view of body habitus; Likely secondary to underlying liver disease. Code(s): R16.1 - SPLENOMEGALY, NOT ELSEWHERE CLASSIFIED (5) CHF (congestive heart failure) Code(s): I50.9 - HEART FAILURE, UNSPECIFIED 7) Rash over face and back --pruritic start benadryl derm/id Consult does not look like typical allergic reaction but was just started on flagyl ? change to PO vaNCO
[2016-05-04] MEDS ORDERED: diphenhydrAMINE HCL 50 MG CAPSULE PO ONE (19:15)
[2016-05-04] MEDS: HEPARIN INFUSION - 500 ML IVPB SCH (22:55)
[2016-05-05] MEDS: oxyCODONE HCL 5 MG TABLET PO PRN ×3 (05:58→18:11)
[2016-05-05] MEDS: ALPRAZolam 0.25 MG TABLET PO SCH ×3 (05:58→22:00)
[2016-05-05 06:54] LABS: URINE APPEARANCE TURBID; URINE BILIRUBIN NEGATIVE (NEGATIVE); URINE COLOR YELLOW; URINE GLUCOSE (UA) NEGATIVE (NEGATIVE); URINE KETONE NEGATIVE (NEGATIVE); URINE NITRITE POSITIVE (NEGATIVE); URINE UROBILINOGEN NEGATIVE E.U./dl (0.2-1.0)
[2016-05-05 07:05] LABS: URINE BLOOD 1+ (NEGATIVE); URINE LEUK ESTERASE 3+ (NEGATIVE); URINE PROTEIN 2+ (NEGATIVE)
[2016-05-05 07:20] LABS: URINE RBC 7 /hpf (0-3); URINE WBC 45 /hpf (3-5)
[2016-05-05 07:21] LABS: URINE BACTERIA MANY /hpf (NONE SEEN)
[2016-05-05 07:57] LABS: MCHC 34.9 g/dl (32.0-35.9); MEAN CELL VOLUME 91.7 fl (80-96); MEAN PLT VOLUME 7.9 fl (7.5-11.1); PLATELET COUNT 161 K/MM3 (134-434); WHITE BLOOD COUNT 4.6 K/mm3 (4.0-10.0)
[2016-05-05 08:10] LABS: INR 1.19 (0.82-1.09); PROTHROMBIN TIME (PATIENT) 13.1 SEC (9.98-11.88)
[2016-05-05 08:13] LABS: ACTIVATED PTT 54.8 SECONDS (26.9-34.4)
--- NOTE | 2016-05-05 09:34 | PN ---
Progress Note, Physician History of Present Illness: INTERMITTENT ABD PAIN - Current Medication List Current Medications: Active Medications Acetaminophen (Tylenol -) 650 mg PO Q6H PRN PRN Reason: HEADACHE PAIN Last Admin: 05/04/16 17:24 Dose: 650 mg Al Hydroxide/Mg Hydroxide (Mylanta Oral Suspension -) 30 ml PO Q6H PRN PRN Reason: INDIGESTION Last Admin: 05/03/16 20:55 Dose: 30 ml Alprazolam (Xanax -) 1 mg PO TID [facility] Last Admin: 05/05/16 05:58 Dose: 1 mg Finasteride (Proscar -) 5 mg PO DAILY [facility] Last Admin: 05/04/16 10:01 Dose: 5 mg Pantoprazole Sodium (Protonix 40mg Ivpb (Pre-Docked)) 100 mls @ 200 mls/hr IVPB BID [facility] Last Admin: 05/04/16 22:37 Dose: 200 mls/hr Heparin Sodium/Dextrose (Heparin Infusion -) 500 mls @ 20 mls/hr IVPB TITR [facility] ; 1,000 UNITS/HR PRN Reason: Protocol Last Admin: 05/04/16 22:55 Dose: 20 mls/hr Levetiracetam 500 mg/ (Levetiracetam 250 mg) 750 mg PO DAILY [facility] Last Admin: 05/04/16 09:59 Dose: 750 mg Lisinopril (Prinivil) 20 mg PO DAILY [facility] Last Admin: 05/04/16 10:00 Dose: 20 mg Metoprolol Succinate (Toprol Xl -) 12.5 mg PO DAILY [facility] Last Admin: 05/04/16 10:00 Dose: 12.5 mg Ondansetron HCl (Zofran Injection) 4 mg IVPB Q4H PRN PRN Reason: NAUSEA AND/OR VOMITING Last Admin: 04/29/16 22:36 Dose: 4 mg Oxycodone HCl (Roxicodone -) 20 mg PO Q6H PRN PRN Reason: PAIN Last Admin: 05/05/16 05:58 Dose: 20 mg Tamsulosin HCl (Flomax -) 0.4 mg PO DAILY@0830 [facility] Last Admin: 05/04/16 09:59 Dose: 0.4 mg - Objective Vital Signs: Vital Signs Temperature 97.9 F 05/05/16 06:00 Pulse Rate 73 05/05/16 06:00 Respiratory Rate 18 05/05/16 06:00 Blood Pressure 130/76 05/05/16 06:00 O2 Sat by Pulse Oximetry (%) 97 05/04/16 21:00 Cardiovascular: Yes: S1, S2 Respiratory: Yes: Regular, CTA Bilaterally Gastrointestinal: Yes: Normal Bowel Sounds, Soft, Abdomen, Obese Labs: CBC, BMP 05/05/16 07:00 05/03/16 06:30 INR, PTT INR 1.19 (0.82-1.09) H 05/05/16 07:00 Fibrinogen 292.0 mg/dL (238-498) 05/02/16 07:00 Assessment/Plan - Problems (1) Atrial fibrillation Assessment/Plan: couamdin AND HEPARIN cardio on board Code(s): I48.91 - UNSPECIFIED ATRIAL FIBRILLATION Qualifiers: Atrial fibrillation type: chronic Qualified Code(s): I48.2 - Chronic atrial fibrillation (2) Colitis Assessment/Plan: levaquin ad flagyl R/O CDIF---ID GI SEE ENDO REPORTS: EGD: NORMAL; COLONOSCOPY: COLITIS SIGMOID COLON BIOPSY TAKEN NOW C DIFF aG + TOXIN NEGATIVE, NO SYMPTOMS OR STOOL IN HOSPITAL TREATED WITH FLAGYL ASK ID ABOUT NEXT STEP CONTINUED RX??--ID F/U RESTART HEPARIN WITHOUT BOLUS AT 10 PM FOLLOW UP BIOPSIES [address]ER DIET Code(s): K52.9 - NONINFECTIVE GASTROENTERITIS AND COLITIS, UNSPECIFIED (3) R/O UTI Assessment/Plan: UA AND CS ID F/U (4) Urinary retention Assessment/Plan: cline cath bladder sono flomax Code(s): R33.9 - RETENTION OF URINE, UNSPECIFIED
[2016-05-05] MEDS ORDERED: levETIRAcetam 250 MG TABLET (FP) PO ONE (09:41)
[2016-05-05] MEDS ORDERED: levETIRAcetam 500 MG TABLET (FP) PO ONE (09:41)
[2016-05-05] MEDS: PANTOPRAZOLE SODIUM 100 ML IVPB SCH ×2 (09:47→22:00)
[2016-05-05] MEDS: LEVETIRACETAM 500 MG, LEVETIRACETAM 250 MG PO SCH (09:48)
[2016-05-05] MEDS: TAMSULOSIN HCL 0.4 MG CAP.ER.24H (FP) PO SCH (09:48)
[2016-05-05] MEDS: METOPROLOL SUCCINATE 25 MG TAB.SR.24H (FP) PO SCH (09:48)
[2016-05-05] MEDS: LISINOPRIL 20 MG TABLET (FP) PO SCH (09:48)
[2016-05-05] MEDS: FINASTERIDE 5 MG TABLET (FP) PO SCH (09:49)
[2016-05-05] MEDS: MAG HYDROX/AL HYDROX/SIMETH 30 ML UNIT-DOSE CUP PO PRN (10:55)
[2016-05-05] MEDS: ACETAMINOPHEN 325 MG TABLET (FP) PO PRN ×2 (12:10→18:12)
--- NOTE | 2016-05-05 13:42 | PN ---
GI Progress Note Subjective: GASTROENTEROLOGY NO DIARRHEA, NO MELENA, HAD RASH NOW OFF FLAGYL, STILL ON HEPARIN BUT NO COUMADIN??? PATIENT STABLE ENOUGH TO GO HOME - Objective Vital Signs: Vital Signs Temperature 97.7 F 05/05/16 10:00 Pulse Rate 101 H 05/05/16 10:00 Respiratory Rate 18 05/05/16 10:00 Blood Pressure 134/83 05/05/16 10:00 O2 Sat by Pulse Oximetry (%) 97 05/04/16 21:00 Constitutional: Obese Eyes: Yes: Conjunctiva Clear HENT: Yes: Normocephalic Cardiovascular: Yes: Regular Rate and Rhythm Respiratory: Yes: WNL Gastrointestinal Inspection: Yes: WNL, Other (MORBID OBESITY, LIMITED EXAM) ...Auscultate: Yes: Normoactive Bowel Sounds ...Palpate: Yes: Soft Extremities: Yes: WNL Edema: Yes Labs: CBC, BMP 05/05/16 07:00 05/03/16 06:30 INR, PTT INR 1.19 (0.82-1.09) H 05/05/16 07:00 Fibrinogen 292.0 mg/dL (238-498) 05/02/16 07:00 Problem List - Problems (1) Colitis Assessment/Plan: RESOLVED, STOOL CDIFF AG + TOXIN NEG, AWAIT BIOPSIES START VANCO???: PER ID/ANNABI START WARFARIN : PER ANNABI Code(s): K52.9 - NONINFECTIVE GASTROENTERITIS AND COLITIS, UNSPECIFIED (2) Diarrhea in adult patient Code(s): R19.7 - DIARRHEA, UNSPECIFIED (3) Dark stools Code(s): R19.5 - OTHER FECAL ABNORMALITIES (4) Hep C w/o coma, chronic Code(s): B18.2 - CHRONIC VIRAL HEPATITIS C (5) Splenomegaly Code(s): R16.1 - SPLENOMEGALY, NOT ELSEWHERE CLASSIFIED (6) Atrial fibrillation Code(s): I48.91 - UNSPECIFIED ATRIAL FIBRILLATION Qualifiers: Atrial fibrillation type: chronic Qualified Code(s): I48.2 - Chronic atrial fibrillation (7) CHF exacerbation Code(s): I50.9 - HEART FAILURE, UNSPECIFIED Qualifiers: Congestive heart failure type: unspecified congestive heart failure type Qualified Code(s): I50.9 - Heart failure, unspecified
--- NOTE | 2016-05-05 14:37 | CONSULT ---
Consult Consult Specialty:: Dermatology - Past Medical History [employer]: Yes: Other (craniotomy s/p evacuation [facility] on keppra ) Cardio/Vascular: Yes: AFIB, CAD (prior PCI (> 1 year ago)), CHF (chronic primarily diastolic), HTN, Other (PCI) Pulmonary: Yes: COPD Gastrointestinal: Yes: Other (6 years earlier -negative EGD and colonoscopy) Hepatobiliary: Yes: Cirrhosis, Hepatitis C, Other (patient does not admit to cirrhosis (normal liver on ct scan does have splenomegaly)) Renal/: Yes: BPH, Renal Calculi Psych: Yes: Anxiety, Depression Musculoskeletal: Yes: Chronic low back pain, Osteoarthritis Endocrine: Yes: Diabetes Mellitus - Past Surgical History Past Surgical History: Yes: Colonoscopy, Upper Endoscopy - Alcohol/Substance Use Hx Alcohol Use: No (prior heavy alcohol intake-discontinued 20 years earlier) History of Substance Use: reports: None - Smoking History Smoking history: Former smoker Have you smoked in the past 12 months: No Aproximately how many cigarettes per day: 0 If you are a former smoker, when did you quit?: 20 years earlier - Social History Usual Living Arrangement: With Child ADL: Family Assistance Occupation: worked in [employer] with exposures History of Recent Travel: No Home Medications - Allergies Allergies/Adverse Reactions: Allergies Allergy/AdvReac Type Severity Reaction Status Date / Time No Known Allergies Allergy Verified 12/23/15 22:39 - Home Medications Home Medications: Ambulatory Orders Alprazolam [Xanax] 1 mg PO TID 03/28/13 Aspirin Coated [Ecotrin -] 81 mg PO DAILY tablet.ec 07/06/14 Mag Hydrox/Al Hydrox/Simeth [Mylanta Oral Suspension -] 30 ml PO Q6H PRN #0 cup 08/20/14 Metoprolol Succinate [Toprol XL -] 12.5 mg PO DAILY 05/21/15 Oxycodone HCl 20 mg PO TID MDD 60 05/21/15 Finasteride [Proscar -] 5 mg PO DAILY tablet 05/26/15 Polyethylene Glycol 3350 [Miralax 119 gm Btl -] 17 gm PO DAILY bottle 05/26/15 Clopidogrel Bisulfate [Plavix -] 75 mg PO DAILY 12/20/15 Levetiracetam [Keppra -] 750 mg PO DAILY 12/20/15 Tamsulosin HCl [Flomax] 0.4 mg PO DAILY 12/26/15 Lisinopril [Zestril] 25 mg PO DAILY 04/24/16 Warfarin Na [Coumadin -] 2.5 mg PO DAILY@1800 04/24/16 Furosemide [Lasix] 40 mg PO DAILY PRN 04/30/16 Family Disease History - Family Disease History Family Disease History: Heart Disease: Sister (PR in her early 60s), CA: Brother , Other: Mother (P.E. post hip surgery) Other Family History: 1 brother with lung cancer;. 1 sister with bone cancer Physical Exam Vital Signs: Vital Signs Temperature 97.7 F 05/05/16 10:00 Pulse Rate 101 H 05/05/16 10:00 Respiratory Rate 18 05/05/16 10:00 Blood Pressure 134/83 05/05/16 10:00 O2 Sat by Pulse Oximetry (%) 97 05/04/16 21:00 Labs: CBC, BMP 05/05/16 07:00 05/03/16 06:30 Assessment/Plan 1 Back_ follicular erythematous papules on back only. Petra due to increase heat and occlusion. apply antifungal powder QD 2 Face_ eryhematous macules and scattered papules.. Mild Acne Rosacea apply hydrocortisone 2.5 % cream QD for 3 days no evidence of Drug eruption noted
[2016-05-05] MEDS ORDERED: HYDROCORTISONE 2.5% LOTION - 1 BOTTLE TP ONE (14:39)
[2016-05-05] MEDS ORDERED: PHENAZOPYRIDINE HCL 100 MG TABLET (FP) PO PRN (15:53)
[2016-05-05] MEDS: NYSTATIN POWDER 100,000 UNITS/GM - 15 GM TOPICAL POWDER TP SCH (15:56)
[2016-05-05] MEDS ORDERED: PT OWN MED DRAWER 7, Y5N ONE (16:22)
--- NOTE | 2016-05-05 17:18 | PN ---
Progress Note, Physician History of Present Illness: Reports developing rash after flagyl Flagyl D/C'd Derm consult appreciated Now on Bactrim for c/o dysuria - Current Medication List Current Medications: Active Medications Acetaminophen (Tylenol -) 650 mg PO Q6H PRN PRN Reason: HEADACHE PAIN Last Admin: 05/05/16 12:10 Dose: 650 mg Al Hydroxide/Mg Hydroxide (Mylanta Oral Suspension -) 30 ml PO Q6H PRN PRN Reason: INDIGESTION Last Admin: 05/05/16 10:55 Dose: 30 ml Alprazolam (Xanax -) 1 mg PO TID [facility] Last Admin: 05/05/16 14:08 Dose: 1 mg Finasteride (Proscar -) 5 mg PO DAILY [facility] Last Admin: 05/05/16 09:49 Dose: 5 mg Hydrocortisone (Hytone 2.5% Lotion -) 1 applic TP DAILY [facility] Stop: 05/07/16 10:01 Pantoprazole Sodium (Protonix 40mg Ivpb (Pre-Docked)) 100 mls @ 200 mls/hr IVPB BID [facility] Last Admin: 05/05/16 09:47 Dose: 200 mls/hr Heparin Sodium/Dextrose (Heparin Infusion -) 500 mls @ 20 mls/hr IVPB TITR [facility] ; 1,000 UNITS/HR PRN Reason: Protocol Last Admin: 05/04/16 22:55 Dose: 20 mls/hr Levetiracetam 500 mg/ (Levetiracetam 250 mg) 750 mg PO DAILY [facility] Last Admin: 05/05/16 09:48 Dose: 750 mg Lisinopril (Prinivil) 20 mg PO DAILY [facility] Last Admin: 05/05/16 09:48 Dose: 20 mg Metoprolol Succinate (Toprol Xl -) 12.5 mg PO DAILY [facility] Last Admin: 05/05/16 09:48 Dose: 12.5 mg Nystatin (Nystop Powder -) 1 applic TP DAILY [facility] Last Admin: 05/05/16 15:56 Dose: 1 applic Ondansetron HCl (Zofran Injection) 4 mg IVPB Q4H PRN PRN Reason: NAUSEA AND/OR VOMITING Last Admin: 04/29/16 22:36 Dose: 4 mg Oxycodone HCl (Roxicodone -) 20 mg PO Q6H PRN PRN Reason: PAIN Last Admin: 05/05/16 12:11 Dose: 20 mg Phenazopyridine HCl (Pyridium -) 100 mg PO TID PRN Tamsulosin HCl (Flomax -) 0.4 mg PO DAILY@0830 [facility] Last Admin: 05/05/16 09:48 Dose: 0.4 mg Trimethoprim/Sulfamethoxazole (Bactrim Ds -) 1 each PO BID [facility] - Objective Vital Signs: Vital Signs Temperature 97.7 F 05/05/16 10:00 Pulse Rate 101 H 05/05/16 10:00 Respiratory Rate 18 05/05/16 10:00 Blood Pressure 134/83 05/05/16 10:00 O2 Sat by Pulse Oximetry (%) 97 05/05/16 09:00 Constitutional: Yes: No Distress Eyes: Yes: Conjunctiva Clear Cardiovascular: Yes: Regular Rate and Rhythm, S1, S2 Respiratory: Yes: CTA Bilaterally Gastrointestinal: Yes: Normal Bowel Sounds, Soft, Abdomen, Obese. No: Tenderness Edema: Yes Labs: CBC, BMP 05/05/16 07:00 05/03/16 06:30 INR, PTT INR 1.19 (0.82-1.09) H 05/05/16 07:00 Fibrinogen 292.0 mg/dL (238-498) 05/02/16 07:00 Assessment/Plan Possible adverse drug reaction Colitis Possible UTI Check urine c/s- if negative, D/C Bactrim Observe off tx for C difficile If pt develops diarrhea- start po vancomycin
[2016-05-05] MEDS: HEPARIN INFUSION - 500 ML IVPB SCH (22:00)
[2016-05-05] MEDS: SULFAMETHOXAZOLE/TRIMETHOPRIM 800MG/160MG D.S. TABLET PO SCH (22:00)
--- NOTE | 2016-05-05 22:17 | PN ---
Progress Note (short form) - Note Progress Note: pATIENT SEEN AND EXAMINED mild abdominal cramping Last Vital Signs Temp Pulse Resp BP Pulse Ox 98.6 F 78 18 131/81 97 05/05/16 16:30 05/05/16 16:30 05/05/16 16:30 05/05/16 16:30 05/05/16 09:00 Oropharynx: No thrush, No mucositis Cor: RSR, No murmurs, No gallops Lungs: Clear to P&A Abd: Soft, Normal bowel sounds, No organomegaly skin rash Abnormal Lab Results 05/04/16 05/05/16 05/05/16 23:00 07:00 07:00 RBC 3.95 L INR 1.19 H PTT (Actin FS) 54.8 H Urine pH 9.0 H D Urine Protein 2+ H Urine Blood 1+ H Ur Leukocyte Esterase 3+ H Current Medications Acetaminophen (Tylenol -) 650 mg PO Q6H PRN PRN Reason: HEADACHE PAIN Last Admin: 05/05/16 18:12 Dose: 650 mg Al Hydroxide/Mg Hydroxide (Mylanta Oral Suspension -) 30 ml PO Q6H PRN PRN Reason: INDIGESTION Last Admin: 05/05/16 10:55 Dose: 30 ml Alprazolam (Xanax -) 1 mg PO TID [facility] Last Admin: 05/05/16 14:08 Dose: 1 mg Finasteride (Proscar -) 5 mg PO DAILY [facility] Last Admin: 05/05/16 09:49 Dose: 5 mg Hydrocortisone (Hytone 2.5% Lotion -) 1 applic TP DAILY [facility] Stop: 05/07/16 10:01 Pantoprazole Sodium (Protonix 40mg Ivpb (Pre-Docked)) 100 mls @ 200 mls/hr IVPB BID [facility] Last Admin: 05/05/16 09:47 Dose: 200 mls/hr Heparin Sodium/Dextrose (Heparin Infusion -) 500 mls @ 20 mls/hr IVPB TITR AMARI ; 1,000 UNITS/HR PRN Reason: Protocol Last Admin: 05/04/16 22:55 Dose: 20 mls/hr Levetiracetam 500 mg/ (Levetiracetam 250 mg) 750 mg PO DAILY [facility] Last Admin: 05/05/16 09:48 Dose: 750 mg Lisinopril (Prinivil) 20 mg PO DAILY [facility] Last Admin: 05/05/16 09:48 Dose: 20 mg Metoprolol Succinate (Toprol Xl -) 12.5 mg PO DAILY [facility] Last Admin: 05/05/16 09:48 Dose: 12.5 mg Nystatin (Nystop Powder -) 1 applic TP DAILY [facility] Last Admin: 05/05/16 15:56 Dose: 1 applic Ondansetron HCl (Zofran Injection) 4 mg IVPB Q4H PRN PRN Reason: NAUSEA AND/OR VOMITING Last Admin: 04/29/16 22:36 Dose: 4 mg Oxycodone HCl (Roxicodone -) 20 mg PO Q6H PRN PRN Reason: PAIN Last Admin: 05/05/16 18:11 Dose: 20 mg Phenazopyridine HCl (Pyridium -) 100 mg PO TID PRN Tamsulosin HCl (Flomax -) 0.4 mg PO DAILY@0830 [facility] Last Admin: 05/05/16 09:48 Dose: 0.4 mg Trimethoprim/Sulfamethoxazole (Bactrim Ds -) 1 each PO BID [facility] a/p 61 Y/O PATIENT WITH (1) Atrial fibrillation On coumadin for chronic A.F. . Off coumadin since 04/24. (2) Elevated INR s/p vit. K being bridged back heparin to coumadin (3) Colitis colonoscopy --sigmoid colitis--biopsies pending c.diff ag +/toxin neg (4) Splenomegaly Assessment/Plan: Not palpable in view of body habitus; Likely secondary to underlying liver disease. Code(s): R16.1 - SPLENOMEGALY, NOT ELSEWHERE CLASSIFIED (5) CHF (congestive heart failure) Code(s): I50.9 - HEART FAILURE, UNSPECIFIED 7) Rash over face and back --pruritic derm consult appreciated will discuss with id team
[2016-05-06] MEDS: oxyCODONE HCL 5 MG TABLET PO PRN ×4 (00:25→18:21)
[2016-05-06] MEDS: ACETAMINOPHEN 325 MG TABLET (FP) PO PRN ×2 (00:25→06:45)
[2016-05-06] MEDS: ALPRAZolam 0.25 MG TABLET PO SCH ×3 (06:44→21:39)
[2016-05-06] MEDS: MAG HYDROX/AL HYDROX/SIMETH 30 ML UNIT-DOSE CUP PO PRN ×2 (06:44→12:22)
[2016-05-06 08:20] LABS: MCH 31.9 pg (25.7-33.7); MCHC 34.6 g/dl (32.0-35.9); MEAN CELL VOLUME 92.4 fl (80-96); MEAN PLT VOLUME 7.3 fl (7.5-11.1); PLATELET COUNT 171 K/MM3 (134-434)
[2016-05-06] MEDS: TAMSULOSIN HCL 0.4 MG CAP.ER.24H (FP) PO SCH (08:29)
[2016-05-06 08:38] LABS: INR 1.2 (0.82-1.09); PROTHROMBIN TIME (PATIENT) 13.2 SEC (9.98-11.88)
[2016-05-06] MEDS ORDERED: levETIRAcetam 500 MG TABLET (FP) PO ONE (10:14)
[2016-05-06] MEDS ORDERED: levETIRAcetam 250 MG TABLET (FP) PO ONE (10:14)
[2016-05-06] MEDS: ENOXAPARIN NA (PORCINE) 120 MG/0.8 ML DISP.SYRIN SQ SCH ×2 (10:18→21:39)
[2016-05-06] MEDS: HYDROCORTISONE 2.5% LOTION - 1 BOTTLE TP SCH (10:18)
[2016-05-06] MEDS: LEVETIRACETAM 500 MG, LEVETIRACETAM 250 MG PO SCH (10:18)
[2016-05-06] MEDS: SULFAMETHOXAZOLE/TRIMETHOPRIM 800MG/160MG D.S. TABLET PO SCH ×2 (10:18→21:40)
[2016-05-06] MEDS: METOPROLOL SUCCINATE 25 MG TAB.SR.24H (FP) PO SCH (10:19)
[2016-05-06] MEDS: NYSTATIN POWDER 100,000 UNITS/GM - 15 GM TOPICAL POWDER TP SCH (10:19)
[2016-05-06] MEDS: PANTOPRAZOLE SODIUM 100 ML IVPB SCH ×2 (10:20→21:39)
[2016-05-06] MEDS: FINASTERIDE 5 MG TABLET (FP) PO SCH (10:20)
[2016-05-06] MEDS: LISINOPRIL 20 MG TABLET (FP) PO SCH (10:21)
[2016-05-06] MEDS ORDERED: PT OWN MED DRAWER 7, Y5N ONE (10:39)
--- NOTE | 2016-05-06 17:00 | PN ---
Progress Note, Physician Chief Complaint: NO DIARRHEA MILD ANXIOUS - Current Medication List Current Medications: Active Medications Acetaminophen (Tylenol -) 650 mg PO Q6H PRN PRN Reason: HEADACHE PAIN Last Admin: 05/06/16 06:45 Dose: 650 mg Al Hydroxide/Mg Hydroxide (Mylanta Oral Suspension -) 30 ml PO Q6H PRN PRN Reason: INDIGESTION Last Admin: 05/06/16 12:22 Dose: 30 ml Alprazolam (Xanax -) 1 mg PO TID [facility] Last Admin: 05/06/16 14:23 Dose: 1 mg Enoxaparin Sodium (Lovenox -) 120 mg SQ BID [facility] Last Admin: 05/06/16 10:18 Dose: 120 mg Finasteride (Proscar -) 5 mg PO DAILY [facility] Last Admin: 05/06/16 10:20 Dose: 5 mg Hydrocortisone (Hytone 2.5% Lotion -) 1 applic TP DAILY [facility] Stop: 05/07/16 10:01 Last Admin: 05/06/16 10:18 Dose: 1 appful Pantoprazole Sodium (Protonix 40mg Ivpb (Pre-Docked)) 100 mls @ 200 mls/hr IVPB BID [facility] Last Admin: 05/06/16 10:20 Dose: 200 mls/hr Levetiracetam 500 mg/ (Levetiracetam 250 mg) 750 mg PO DAILY [facility] Last Admin: 05/06/16 10:18 Dose: 750 mg Lisinopril (Prinivil) 20 mg PO DAILY [facility] Last Admin: 05/06/16 10:21 Dose: 20 mg Metoprolol Succinate (Toprol Xl -) 12.5 mg PO DAILY [facility] Last Admin: 05/06/16 10:19 Dose: 12.5 mg Nystatin (Nystop Powder -) 1 applic TP DAILY [facility] Last Admin: 05/06/16 10:19 Dose: 1 applic Ondansetron HCl (Zofran Injection) 4 mg IVPB Q4H PRN PRN Reason: NAUSEA AND/OR VOMITING Last Admin: 04/29/16 22:36 Dose: 4 mg Oxycodone HCl (Roxicodone -) 20 mg PO Q6H PRN PRN Reason: PAIN Last Admin: 05/06/16 12:22 Dose: 20 mg Phenazopyridine HCl (Pyridium -) 100 mg PO TID PRN Tamsulosin HCl (Flomax -) 0.4 mg PO DAILY@0830 [facility] Last Admin: 05/06/16 08:29 Dose: 0.4 mg Trimethoprim/Sulfamethoxazole (Bactrim Ds -) 1 each PO BID [facility] Last Admin: 05/06/16 10:18 Dose: 1 each Warfarin Sodium (Coumadin -) 3 mg PO DAILY@1800 [facility] - Objective Vital Signs: Vital Signs Temperature 98.6 F 05/06/16 10:00 Pulse Rate 80 05/06/16 10:00 Respiratory Rate 20 05/06/16 10:00 Blood Pressure 120/80 05/06/16 10:00 O2 Sat by Pulse Oximetry (%) 97 05/05/16 21:00 Cardiovascular: Yes: WNL Respiratory: Yes: WNL Gastrointestinal: Yes: Soft, Tenderness. No: Tenderness, Rebound Edema: Yes Labs: CBC, BMP 05/06/16 06:30 05/03/16 06:30 INR, PTT INR 1.20 (0.82-1.09) H 05/06/16 06:30 Fibrinogen 292.0 mg/dL (238-498) 05/02/16 07:00 Problem List - Problems (1) Atrial fibrillation Code(s): I48.91 - UNSPECIFIED ATRIAL FIBRILLATION Qualifiers: Atrial fibrillation type: chronic Qualified Code(s): I48.2 - Chronic atrial fibrillation (2) Colitis Code(s): K52.9 - NONINFECTIVE GASTROENTERITIS AND COLITIS, UNSPECIFIED Assessment/Plan (1) Atrial fibrillation Assessment/Plan: couamdin AND LOVENOX cardio on board Code(s): I48.91 - UNSPECIFIED ATRIAL FIBRILLATION Qualifiers: Atrial fibrillation type: chronic Qualified Code(s): I48.2 - Chronic atrial fibrillation (2) Colitis Assessment/Plan: APPRECIATE ID CONSULT OFF ABx START VANCO IF DIARRHEA Code(s): K52.9 - NONINFECTIVE GASTROENTERITIS AND COLITIS, UNSPECIFIED (3) R/O UTI Assessment/Plan: APPRECIATE ID CONSULT ON BACTRIM UCx +jaspal -> F/U (4) Urinary retention Assessment/Plan: bladder sono flomax Code(s): R33.9 - RETENTION OF URINE, UNSPECIFIED SHOE LAY OUT PLANNER FM
[2016-05-06] MEDS: WARFARIN NA 3 MG TABLET PO SCH (17:26)
[2016-05-06] MEDS ORDERED: WARFARIN NA 2.5 MG TABLET (FP) PO SCH (18:00)
[2016-05-07] MEDS: oxyCODONE HCL 5 MG TABLET PO PRN ×4 (00:07→19:09)
[2016-05-07] MEDS: ALPRAZolam 0.25 MG TABLET PO SCH ×3 (06:34→21:35)
[2016-05-07 07:54] LABS: MCH 31.9 pg (25.7-33.7); MCHC 34.3 g/dl (32.0-35.9); MEAN CELL VOLUME 92.9 fl (80-96); MEAN PLT VOLUME 7.1 fl (7.5-11.1); PLATELET COUNT 175 K/MM3 (134-434); WHITE BLOOD COUNT 4.4 K/mm3 (4.0-10.0)
[2016-05-07 08:44] LABS: INR 1.22 (0.82-1.09); PROTHROMBIN TIME (PATIENT) 13.5 SEC (9.98-11.88)
[2016-05-07 09:05] LABS: ALBUMIN 2.6 g/dl (3.4-5.0); ANION GAP 9 (8-16); BILIRUBIN,TOTAL 0.4 mg/dL (0.2-1.0); CALCIUM 8.4 mg/dL (8.5-10.1); CO2 28 mmol/L (21-32); GLUCOSE,RANDOM 104 mg/dL (74-106); SGOT/AST 23 U/L (15-37); SGPT/ALT 16 U/L (12-78); TOT PROT 5.6 g/dl (6.4-8.2)
[2016-05-07 09:06] LABS: ALK PHOS 46 U/L (45-117)
--- NOTE | 2016-05-07 09:15 | PN ---
Progress Note, Physician Chief Complaint: denies SOB or palps - Current Medication List Current Medications: Active Medications Acetaminophen (Tylenol -) 650 mg PO Q6H PRN PRN Reason: HEADACHE PAIN Last Admin: 05/06/16 06:45 Dose: 650 mg Al Hydroxide/Mg Hydroxide (Mylanta Oral Suspension -) 30 ml PO Q6H PRN PRN Reason: INDIGESTION Last Admin: 05/06/16 12:22 Dose: 30 ml Alprazolam (Xanax -) 1 mg PO TID [facility] Last Admin: 05/07/16 06:34 Dose: 1 mg Enoxaparin Sodium (Lovenox -) 120 mg SQ BID [facility] Last Admin: 05/06/16 21:39 Dose: 120 mg Finasteride (Proscar -) 5 mg PO DAILY [facility] Last Admin: 05/06/16 10:20 Dose: 5 mg Hydrocortisone (Hytone 2.5% Lotion -) 1 applic TP DAILY [facility] Stop: 05/07/16 10:01 Last Admin: 05/06/16 10:18 Dose: 1 appful Pantoprazole Sodium (Protonix 40mg Ivpb (Pre-Docked)) 100 mls @ 200 mls/hr IVPB BID [facility] Last Admin: 05/06/16 21:39 Dose: 200 mls/hr Levetiracetam 500 mg/ (Levetiracetam 250 mg) 750 mg PO DAILY [facility] Last Admin: 05/06/16 10:18 Dose: 750 mg Lisinopril (Prinivil) 20 mg PO DAILY [facility] Last Admin: 05/06/16 10:21 Dose: 20 mg Metoprolol Succinate (Toprol Xl -) 12.5 mg PO DAILY [facility] Last Admin: 05/06/16 10:19 Dose: 12.5 mg Nystatin (Nystop Powder -) 1 applic TP DAILY [facility] Last Admin: 05/06/16 10:19 Dose: 1 applic Ondansetron HCl (Zofran Injection) 4 mg IVPB Q4H PRN PRN Reason: NAUSEA AND/OR VOMITING Last Admin: 04/29/16 22:36 Dose: 4 mg Oxycodone HCl (Roxicodone -) 20 mg PO Q6H PRN PRN Reason: PAIN Last Admin: 05/07/16 06:58 Dose: 20 mg Phenazopyridine HCl (Pyridium -) 100 mg PO TID PRN Tamsulosin HCl (Flomax -) 0.4 mg PO DAILY@0830 [facility] Last Admin: 05/06/16 08:29 Dose: 0.4 mg Trimethoprim/Sulfamethoxazole (Bactrim Ds -) 1 each PO BID [facility] Last Admin: 05/06/16 21:40 Dose: 1 each Warfarin Sodium (Coumadin -) 3 mg PO DAILY@1800 [facility] Last Admin: 05/06/16 17:26 Dose: 3 mg - Objective Vital Signs: Vital Signs Temperature 98.5 F 05/06/16 22:00 Pulse Rate 75 05/06/16 22:00 Respiratory Rate 18 05/06/16 22:00 Blood Pressure 118/70 05/06/16 22:00 O2 Sat by Pulse Oximetry (%) 97 05/05/16 21:00 Constitutional: Yes: No Distress Eyes: Yes: Conjunctiva Clear Cardiovascular: Yes: Pulse Irregular Respiratory: Yes: CTA Bilaterally Gastrointestinal: Yes: Soft, Abdomen, Obese Edema: No Neurological: Yes: Alert, Oriented Labs: CBC, BMP 05/07/16 06:45 INR, PTT INR 1.22 (0.82-1.09) H 05/07/16 06:45 Fibrinogen 292.0 mg/dL (238-498) 05/02/16 07:00 Laboratory Tests 05/02/16 05/03/16 05/07/16 17:30 06:30 06:45 WBC 4.4 Hgb 12.9 Hct 37.6 Plt Count 175 INR Potassium 3.8 BUN 6 L Creatinine 1.1 Calcium 8.4 L Stool Occult Blood Negative 05/07/16 06:45 WBC Hgb Hct Plt Count INR 1.22 H Potassium BUN Creatinine Calcium Stool Occult Blood - ....Imaging EKG: Image Reviewed Assessment/Plan IMP: Chronic AF Gastroenteritis UTI REC: Heart rate and blood pressure well controlled. Lovenox with transition to coumadin to INR 2-3 for AF.
[2016-05-07] MEDS ORDERED: levETIRAcetam 500 MG TABLET (FP) PO ONE (09:16)
[2016-05-07] MEDS ORDERED: levETIRAcetam 250 MG TABLET (FP) PO ONE (09:17)
[2016-05-07] MEDS: PANTOPRAZOLE SODIUM 100 ML IVPB SCH ×2 (09:26→21:34)
[2016-05-07] MEDS: SULFAMETHOXAZOLE/TRIMETHOPRIM 800MG/160MG D.S. TABLET PO SCH (09:27)
[2016-05-07] MEDS: LEVETIRACETAM 500 MG, LEVETIRACETAM 250 MG PO SCH (09:27)
[2016-05-07] MEDS: TAMSULOSIN HCL 0.4 MG CAP.ER.24H (FP) PO SCH (09:27)
[2016-05-07] MEDS: FINASTERIDE 5 MG TABLET (FP) PO SCH (09:27)
[2016-05-07] MEDS: HYDROCORTISONE 2.5% LOTION - 1 BOTTLE TP SCH (09:27)
[2016-05-07] MEDS: LISINOPRIL 20 MG TABLET (FP) PO SCH (09:27)
[2016-05-07] MEDS: METOPROLOL SUCCINATE 25 MG TAB.SR.24H (FP) PO SCH (09:27)
[2016-05-07] MEDS: ENOXAPARIN NA (PORCINE) 120 MG/0.8 ML DISP.SYRIN SQ SCH ×2 (09:27→21:35)
[2016-05-07] MEDS: NYSTATIN POWDER 100,000 UNITS/GM - 15 GM TOPICAL POWDER TP SCH (09:28)
[2016-05-07] MEDS: MAG HYDROX/AL HYDROX/SIMETH 30 ML UNIT-DOSE CUP PO PRN ×2 (09:30→15:39)
--- NOTE | 2016-05-07 11:28 | PATH ---
Surgical Pathology Report Patient Name: ARSENIO KHAN Med. Rec. #: [id number] /Age/Gender: 1955 (Age: 61) / M Account: [id number] Location: [facility] MED/SURG Taken: 05/03/2016 Received: 05/06/2016 Reported: 05/07/2016 Physicians: Ronnie Rivera M.D. Specimen(s) Received BX RECTAL SIGMOID COLITIS Clinical History Diarrhea, colitis, heartburn, hepatitis C Normal EGD, diverticulosis, colitis left colon, redundant colon Final Diagnosis COLON, RECTOSIGMOID, BIOPSY: COLONIC MUCOSA WITH FOCAL SUPERFICIAL ULCERATION, AND EXTRAVASATION OF RED BLOOD CELLS WITHIN LAMINA PROPRIA. NO ACTIVE COLITIS, ARCHITECTURAL DISTORTION, GRANULOMATA, OR DYSPLASIA IDENTIFIED. NO MICROSCOPIC COLITIS IDENTIFIED (NO LYMPHOCYTIC OR COLLAGENOUS COLITIS IDENTIFIED). Electronically Signed Joshua Mai M.D. Gross Description Received in formalin, labeled "biopsy rectosigmoid colitis" is a hoover, irregular portion of soft tissue measuring 0.4 cm. in greatest dimension. The specimen is submitted in toto in one cassette. 05/06/201605/06/2016
--- NOTE | 2016-05-07 14:36 | PN ---
Progress Note (short form) - Note Progress Note: patient seen and examined, treating with ceftriaxone for UTI, bridge coumadin with lovenox, dc planning to SNF. Problem List - Problems (1) Atrial fibrillation Code(s): I48.91 - UNSPECIFIED ATRIAL FIBRILLATION Qualifiers: Atrial fibrillation type: chronic Qualified Code(s): I48.2 - Chronic atrial fibrillation (2) Back pain with radiation Code(s): M54.9 - DORSALGIA, UNSPECIFIED (3) Colitis Code(s): K52.9 - NONINFECTIVE GASTROENTERITIS AND COLITIS, UNSPECIFIED (4) Diarrhea in adult patient Code(s): R19.7 - DIARRHEA, UNSPECIFIED (5) Elevated INR Code(s): R79.1 - ABNORMAL COAGULATION PROFILE (6) Urinary retention Code(s): R33.9 - RETENTION OF URINE, UNSPECIFIED (7) Anxiety Code(s): F41.9 - ANXIETY DISORDER, UNSPECIFIED (8) Headache Code(s): R51 - HEADACHE Qualifiers: Headache type: unspecified Headache chronicity pattern: acute headache
[2016-05-07] MEDS ORDERED: CEFTRIAXONE 100 ML IVPB ONE (15:00)
[2016-05-07] MEDS: ACETAMINOPHEN 325 MG TABLET (FP) PO PRN (15:39)
[2016-05-07] MEDS: WARFARIN NA 3 MG TABLET PO SCH (17:39)
[2016-05-08] MEDS: MAG HYDROX/AL HYDROX/SIMETH 30 ML UNIT-DOSE CUP PO PRN ×3 (01:01→14:16)
[2016-05-08] MEDS: oxyCODONE HCL 5 MG TABLET PO PRN ×3 (01:01→13:03)
[2016-05-08] MEDS: ALPRAZolam 0.25 MG TABLET PO SCH ×2 (06:07→13:04)
[2016-05-08] MEDS: ACETAMINOPHEN 325 MG TABLET (FP) PO PRN (06:08)
[2016-05-08 08:02] LABS: INR 1.23 (0.82-1.09); PROTHROMBIN TIME (PATIENT) 13.6 SEC (9.98-11.88)
[2016-05-08] MEDS ORDERED: levETIRAcetam 250 MG TABLET (FP) PO ONE (09:21)
[2016-05-08] MEDS ORDERED: levETIRAcetam 500 MG TABLET (FP) PO ONE (09:21)
[2016-05-08] MEDS ORDERED: PT OWN MED DRAWER 7, Y5N ONE (09:22)
[2016-05-08] MEDS: LEVETIRACETAM 500 MG, LEVETIRACETAM 250 MG PO SCH (09:28)
[2016-05-08] MEDS: TAMSULOSIN HCL 0.4 MG CAP.ER.24H (FP) PO SCH (09:28)
[2016-05-08] MEDS: LISINOPRIL 20 MG TABLET (FP) PO SCH (09:29)
[2016-05-08] MEDS: FINASTERIDE 5 MG TABLET (FP) PO SCH (09:29)
[2016-05-08] MEDS: ENOXAPARIN NA (PORCINE) 120 MG/0.8 ML DISP.SYRIN SQ SCH (09:29)
[2016-05-08] MEDS: NYSTATIN POWDER 100,000 UNITS/GM - 15 GM TOPICAL POWDER TP SCH (09:29)
[2016-05-08] MEDS: PANTOPRAZOLE SODIUM 100 ML IVPB SCH (09:30)
[2016-05-08] MEDS: METOPROLOL SUCCINATE 25 MG TAB.SR.24H (FP) PO SCH (09:30)
[2016-05-08] MEDS ORDERED: PANTOPRAZOLE 40 MG TABLET (FP) PO SCH (10:00)
[2016-05-08] MEDS ORDERED: CEFTRIAXONE 100 ML IVPB SCH (10:00)
[2016-05-08] MEDS ORDERED: CEPHALEXIN MONOHYDRATE 500 MG CAPSULE (UD) PO SCH (10:00)
--- NOTE | 2016-05-08 10:08 | DS ---
Physical Examination Vital Signs: Vital Signs Temperature 98.0 F 05/08/16 09:34 Pulse Rate 76 05/08/16 09:34 Respiratory Rate 20 05/08/16 09:34 Blood Pressure 117/76 05/08/16 09:34 O2 Sat by Pulse Oximetry (%) 96 05/07/16 21:00 Constitutional: Yes: No Distress Eyes: Yes: WNL HENT: Yes: WNL Neck: Yes: WNL Cardiovascular: Yes: Pulse Irregular Respiratory: Yes: WNL Gastrointestinal: Yes: WNL Musculoskeletal: Yes: Back Pain, Muscle Pain, Muscle Weakness Extremities: Yes: Other Edema: Yes Peripheral Pulses WNL: Yes Integumentary: Yes: Rash, Venous Stasis Changes Wound/Incision: Yes: Dressing Dry and Intact Neurological: Yes: Pre-Existing Deficit, Unsteady Gait ...Motor Strength: LLE, RLE Psychiatric: Yes: Other Labs: CBC, BMP 05/07/16 06:45 05/07/16 06:45 Discharge Summary Reason For Visit: COLITIS AFIB CHF EXACERBATION Current Active Problems Atrial fibrillation (Acute) Back pain with radiation (Acute) CHF exacerbation (Acute) Colitis (Acute) Dark stools (Acute) Diarrhea in adult patient (Acute) Elevated INR (Acute) Fall (Acute) Head injury (Acute) Hep C w/o coma, chronic (Acute) Humeral head fracture (Acute) Melena (Acute) Pain in joints (Acute) Splenomegaly (Acute) Urinary retention (Acute) Procedures: Principal: colonoscopy/egd Other Procedures: LABS/CT SCAN Hospital Course: ADMITTED FOR ACUTE COLITIS/ABD PAIN, COLONOSCOPY DONE WITH EGD, FOUND WITH ACUTE GASTRITIS, COLITIS, PPI STARTED, MIRALAX, LOVENOX BRIDGE WITH COUMADIN FOR INR 2-3. Condition: Fair - Instructions Diet, Activity, Other Instructions: LOW FAT LOW SODIUM, WEEKLY INR GOAL 2.0-3.0 Referrals: Akash Russell MD [Primary Care Provider] - Disposition: HALFWAY FACILITY - Home Medications Comprehensive Discharge Medication List: Ambulatory Orders Alprazolam [Xanax] 1 mg PO TID 03/28/13 Aspirin Coated [Ecotrin -] 81 mg PO DAILY tablet.ec 07/06/14 Mag Hydrox/Al Hydrox/Simeth [Mylanta Oral Suspension -] 30 ml PO Q6H PRN #0 cup 08/20/14 Metoprolol Succinate [Toprol XL -] 12.5 mg PO DAILY 05/21/15 Oxycodone HCl 20 mg PO TID MDD 60 05/21/15 Finasteride [Proscar -] 5 mg PO DAILY tablet 05/26/15 Polyethylene Glycol 3350 [Miralax 119 gm Btl -] 17 gm PO DAILY bottle 05/26/15 Levetiracetam [Keppra -] 750 mg PO DAILY 12/20/15 Tamsulosin HCl [Flomax] 0.4 mg PO DAILY 12/26/15 Lisinopril [Zestril] 25 mg PO DAILY 04/24/16 Furosemide [Lasix] 40 mg PO DAILY PRN 04/30/16 Acetaminophen [Tylenol .Regular Strength -] 650 mg PO Q6H PRN #0 tablet Cephalexin Monohydrate [Keflex -] 500 mg PO BID #10 capsule 05/08/16 Enoxaparin [Lovenox -] 120 mg SQ BID disp.syrin 05/08/16 Hydrocortisone 2.5% Lotion [Hytone 2.5% Lotion -] 1 applic TP DAILY bottle 03/26 Levetiracetam [Keppra -] 750 mg PO DAILY tablet 05/08/16 Levetiracetam [Keppra -] 750 mg PO DAILY tablet 05/08/16 Nystatin Powder [Nystop Powder -] 1 applic TP DAILY applic 05/08/16 Pantoprazole Sodium [Protonix -] 40 mg PO DAILY tablet.ec 05/08/16 Phenazopyridine HCl [Pyridium -] 100 mg PO TID PRN #0 tablet MDD 3 05/08/16 Warfarin Na [Coumadin -] 3 mg PO DAILY@1800 tablet 05/08/16
[2016-05-08 15:25] VITALS: BP 111/66; PULSE 70; TEMP 98.1
== END 2016-05-08 17:57 | DRG 392 ==
LOC: JER 19:00 → JERBED 23:10 → UNDOADMIN 04-25 00:39 → JERBED 04-25 00:39 → J4W 04-25 11:26 → J8W 04-28 14:12
PROVIDERS: ADMIT Family Medicine; ATTEND Family Medicine
PROC: 0DBN8ZX Excision of Sigmoid Colon, Via Natural or Artificial Opening Endoscopic, Diagnostic (ICD-10-PCS; 2016-05-03)
PROC: 0DJ08ZZ Inspection of Upper Intestinal Tract, Via Natural or Artificial Opening Endoscopic (ICD-10-PCS; principal; 2016-05-03 15:00)
DX: K52.9 Noninfective gastroenteritis and colitis, unspecified (principal); K92.1 Melena; F11.20 Opioid dependence, uncomplicated; I50.32 Chronic diastolic (congestive) heart failure; N39.0 Urinary tract infection, site not specified; Z68.42 Body mass index [BMI] 45.0-49.9, adult; I48.2 Chronic atrial fibrillation; Z79.01 Long term (current) use of anticoagulants; I25.10 Atherosclerotic heart disease of native coronary artery without angina pectoris; E66.01 Morbid (severe) obesity due to excess calories; M54.5 Low back pain; N40.0 Benign prostatic hyperplasia without lower urinary tract symptoms; E55.9 Vitamin D deficiency, unspecified; Z87.891 Personal history of nicotine dependence; R33.9 Retention of urine, unspecified; B18.2 Chronic viral hepatitis C; R16.1 Splenomegaly, not elsewhere classified; Z95.5 Presence of coronary angioplasty implant and graft; F41.9 Anxiety disorder, unspecified; K59.00 Constipation, unspecified; R79.1 Abnormal coagulation profile; N40.1 Benign prostatic hyperplasia with lower urinary tract symptoms; R33.8 Other retention of urine; K64.8 Other hemorrhoids; K74.60 Unspecified cirrhosis of liver; R21 Rash and other nonspecific skin eruption; K29.00 Acute gastritis without bleeding; Z22.39 Carrier of other specified bacterial diseases
CPT/HCPCS: 36415; 70450-TC; 71010-TC; 74020-TC; 74177-TC; 76856-TC; 80048; 80053; 80076; 81003; 81015; 82272; 82550; 83880; 84484; 85025; 85027; 85384; 85610; 85730; 86850; 86900; 86901; 87040; 87045; 87046; 87086; 87186; 87324; 87449; 88305-TC; 93005; 93010; 93306-TC; 94010; 97116-GP; 97162-PG; 99284-25; J1644

== ENCOUNTER 2017-02-21 11:18 | Inpatient (IN) | payer OTHER ==
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
[2017-02-21 12:37] LABS: BASO % 0.5 % (0-2.0); EOS % 1.7 % (0-4.5); MCH 31.1 pg (25.7-33.7); MCHC 33.5 g/dl (32.0-35.9); MEAN CELL VOLUME 93.1 fl (80-96); MEAN PLT VOLUME 7.5 fl (7.5-11.1); NEUT % 58.2 % (42.8-82.8); PLATELET COUNT 160 K/MM3 (134-434); RDW 13.8 % (11.9-15.9); WHITE BLOOD COUNT 6.1 K/mm3 (4.0-10.0)
[2017-02-21 13:01] LABS: ALBUMIN 3.5 g/dl (3.4-5.0); ANION GAP 9 (8-16); BILIRUBIN,TOTAL 1.2 mg/dL (0.2-1.0); CALCIUM 9.1 mg/dL (8.5-10.1); CO2 29 mmol/L (21-32); CREATININE 1.3 mg/dL (0.7-1.3); GLUCOSE,RANDOM 133 mg/dL (74-106); SGOT/AST 30 U/L (15-37); SGPT/ALT 33 U/L (12-78)
[2017-02-21 13:02] LABS: ALK PHOS 55 U/L (45-117); TOT PROT 7.5 g/dl (6.4-8.2)
[2017-02-21 13:04] LABS: CPK 70 IU/L (39-308); TROPONIN I < 0.02 ng/ml (0.00-0.05)
[2017-02-21 13:25] LABS: INR 1.98 (0.82-1.09); PROTHROMBIN TIME (PATIENT) 22.4 SEC (9.98-11.88)
[2017-02-21] MEDS ORDERED: ACETAMINOPHEN 500 MG TABLET (FP) PO ONE (13:26)
[2017-02-21] MEDS ORDERED: oxyCODONE HCL 5 MG TABLET PO ONE ×4 (13:27→18:49)
[2017-02-21] MEDS ORDERED: oxyCODONE HCL 5 MG TABLET ONE ×3 (13:30→18:51)
[2017-02-21] MEDS ORDERED: ACETAMINOPHEN 325 MG TABLET (FP) ONE (13:31)
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
--- NOTE | 2017-02-21 15:55 | PDOC ---
Attending Attestation - Resident Resident Name: Siva Pandey - ED Attending Attestation I have performed the following: I have examined & evaluated the patient, The case was reviewed & discussed with the resident, I agree w/resident's findings & plan, Exceptions are as noted - HPI HPI: 02/21/17 16:06 61M with h/o HTN, DM, HLD, CHF, afib on coumadin, CAD s/p stent, presenting with SOB since last night. Pt states it began while he was bearing down for bowel movement. It resolved spontaneously but recurred once he stood up. Pt also endorses transient episode of substernal chest pain while lying in bed. Denies F/C. Denies palpitations. Denies LE swelling, has been compliant with lasix, which has recently been increased from weekly to daily 40mg. Denies N/V/ D. - Physicial Exam PE: 02/21/17 16:09 "GENERAL: Awake, alert, and fully oriented, in no acute distress HEAD: No signs of trauma EYES: PERRLA, EOMI, sclera anicteric, conjunctiva clear ENT: Auricles normal inspection, hearing grossly normal, nares patent, oropharynx clear without exudates. Moist mucosa NECK: Nontender, no stepoffs, Normal ROM, supple, no lymphadenopathy, JVD, or masses LUNGS: Breath sounds equal, clear to auscultation bilaterally. No wheezes, and no crackles HEART: tachycardic, normal S1 and S2, no murmurs, rubs or gallops ABDOMEN: Soft, nontender, normoactive bowel sounds. No guarding, no rebound. No masses EXTREMITIES: Normal range of motion, no edema. No clubbing or cyanosis. No cords, erythema, or tenderness NEUROLOGICAL: Cranial nerves II through XII intact. 5/5 strength and sensation in all extremities, Normal speech, normal gait SKIN: Warm, Dry, normal turgor, no rashes or lesions noted. " - Medical Decision Making 02/21/17 16:10 61 M with CP and SOB. Concerning for ACS given h/o CAD. May also be 2/2 afib w/ RVR. Also consider CHF exacerbation. PE is less likely as pt with few DVT risk factors but will consider work up if CXR and labs otherwise unremarkable. - Labs, trop, BNP - CXR - EKG - Rate control PRN - Admit tele
[2017-02-21 20:01] LABS: URINE APPEARANCE TURBID; URINE BILIRUBIN NEGATIVE (NEGATIVE); URINE BLOOD 3+ (NEGATIVE); URINE COLOR AMBER; URINE GLUCOSE (UA) NEGATIVE (NEGATIVE); URINE KETONE TRACE (NEGATIVE); URINE LEUK ESTERASE NEGATIVE (NEGATIVE); URINE NITRITE NEGATIVE (NEGATIVE); URINE UROBILINOGEN NEGATIVE mg/dL (0.2-1.0)
[2017-02-21 20:02] LABS: URINE PROTEIN 2+ (NEGATIVE)
[2017-02-21 20:26] LABS: URINE BACTERIA MODERATE /hpf (NONE SEEN); URINE MUCUS MANY; URINE RBC 173 /hpf (0-3); URINE WBC 81 /hpf (3-5); YEAST RARE
[2017-02-21 21:09] VITALS: BMI 61.3
[2017-02-21] MEDS ORDERED: HYDROCORTISONE 1% TOPICAL CREAM 30 GM TUBE TP PRN (23:40)
[2017-02-22] MEDS: CLOPIDOGREL BISULFATE 75 MG TABLET (FP) PO SCH ×2 (00:06→09:15)
[2017-02-22] MEDS: METOPROLOL SUCCINATE 25 MG TAB.SR.24H (FP) PO SCH ×3 (00:10→21:32)
[2017-02-22] MEDS: ATORVASTATIN CA 20 MG TABLET (FP) PO SCH ×2 (00:10→21:29)
[2017-02-22] MEDS: ALPRAZolam 0.25 MG TABLET PO SCH ×5 (00:11→21:29)
[2017-02-22] MEDS: levETIRAcetam 250 MG TABLET (FP) PO SCH ×3 (00:11→21:27)
[2017-02-22] MEDS: oxyCODONE HCL 5 MG TABLET PO PRN ×4 (00:12→18:44)
[2017-02-22] MEDS: ACETAMINOPHEN 325 MG TABLET (FP) PO PRN ×4 (00:13→18:43)
[2017-02-22] MEDS: RIVAROXABAN 20 MG TABLET PO SCH ×2 (01:26→17:36)
[2017-02-22 07:31] LABS: CHOLESTEROL 125 mg/dL (50-200)
[2017-02-22] MEDS: TAMSULOSIN HCL 0.4 MG CAP.ER.24H (FP) PO SCH (09:15)
[2017-02-22] MEDS: LISINOPRIL 20 MG TABLET (FP) PO SCH (09:15)
[2017-02-22] MEDS: FINASTERIDE 5 MG TABLET (FP) PO SCH (09:15)
[2017-02-22] MEDS: POLYETHYLENE GLYCOL 3350 119 GM BTL PO SCH (09:16)
[2017-02-22] MEDS: FUROSEMIDE 20 MG TABLET (FP) PO SCH (09:16)
[2017-02-22] MEDS: PANTOPRAZOLE 40 MG TABLET (FP) PO SCH (09:17)
[2017-02-22] MEDS ORDERED: PT OWN MED DRAWER 7, Y5N ONE ×2 (09:20→22:20)
[2017-02-22] MEDS: Methylnaltrexone Bromide 12 MG/0.6 ML KIT SQ SCH (09:21)
[2017-02-22] MEDS ORDERED: CLOPIDOGREL BISULFATE 75 MG TABLET (FP) PO SCH (10:00)
--- NOTE | 2017-02-22 10:03 | PN ---
Progress Note, Physician History of Present Illness: seen and examined today in nad. states he is feeling better. no further palpitations. no chest pain, sob. - Current Medication List Current Medications: Active Medications Acetaminophen (Tylenol -) 650 mg PO Q6H PRN PRN Reason: FEVER OR PAIN Last Admin: 02/22/17 05:44 Dose: 650 mg Alprazolam (Xanax -) 1 mg PO TID [facility] Last Admin: 02/22/17 05:44 Dose: 1 mg Atorvastatin Calcium (Lipitor -) 20 mg PO HS [facility] Last Admin: 02/22/17 00:10 Dose: 20 mg Clopidogrel Bisulfate (Plavix -) 75 mg PO DAILY [facility] Last Admin: 02/22/17 09:15 Dose: 75 mg Docusate Sodium (Colace -) [address] [facility] Finasteride (Proscar -) 5 mg PO DAILY [facility] Last Admin: 02/22/17 09:15 Dose: 5 mg Furosemide (Lasix -) 20 mg PO DAILY [facility] Last Admin: 02/22/17 09:16 Dose: 20 mg Hydrocortisone (Hytone 1% Cream -) 1 applic TP DAILY PRN PRN Reason: DRY SKIN Levetiracetam (Keppra -) 750 mg PO BID [facility] Last Admin: 02/22/17 09:15 Dose: 750 mg Lisinopril (Prinivil) 20 mg PO DAILY [facility] Last Admin: 02/22/17 09:15 Dose: 20 mg Methylnaltrexone [place] (Relistor -) 12 mg SQ DAILY [facility] Last Admin: 02/22/17 09:21 Dose: Not Given Metoprolol Succinate (Toprol Xl -) 12.5 mg PO BID [facility] Last Admin: 02/22/17 09:15 Dose: 12.5 mg Oxycodone HCl (Roxicodone -) 15 mg PO Q6H PRN PRN Reason: PAIN Last Admin: 02/22/17 05:45 Dose: 15 mg Pantoprazole Sodium (Protonix -) 40 mg PO DAILY [facility] Last Admin: 02/22/17 09:17 Dose: 40 mg Polyethylene Glycol (Miralax (For Daily Use) -) 17 gm PO DAILY [facility] Last Admin: 02/22/17 09:16 Dose: 17 grams Rivaroxaban (Xarelto -) 20 mg PO DAILY@1800 [facility] Last Admin: 02/22/17 01:26 Dose: 20 mg Tamsulosin HCl (Flomax -) 0.4 mg PO DAILY@0830 [facility] Last Admin: 02/22/17 09:15 Dose: 0.4 mg - Objective Vital Signs: Vital Signs Temperature 98.0 F 02/22/17 09:00 Pulse Rate 68 02/22/17 09:00 Respiratory Rate 20 02/22/17 09:00 Blood Pressure 120/75 02/22/17 09:00 O2 Sat by Pulse Oximetry (%) 98 02/22/17 07:35 Constitutional: Yes: No Distress, Calm, Obese Eyes: Yes: Conjunctiva Clear, EOM Intact, PERRL HENT: Yes: Atraumatic, Normocephalic Neck: Yes: Supple, Trachea Midline Cardiovascular: Yes: Pulse Irregular, S1, S2. No: Bradycardia, Tachycardia, Bruit, JVD, Gallop, Murmur, Rub, S3, S4, Varicosities Respiratory: Yes: Regular, Diminished. No: Rales, Rhonchi, Wheezes Gastrointestinal: Yes: Normal Bowel Sounds, Soft. No: Distention, Tenderness Musculoskeletal: Yes: WNL Extremities: Yes: WNL Edema: No Peripheral Pulses WNL: Yes Peripheral Pulses: Left Doralis Pedis: 2+, Right Dorsalis Pedis: 2+ Integumentary: Yes: WNL Neurological: Yes: Alert, Oriented Psychiatric: Yes: Alert, Oriented Labs: CBC, BMP 02/21/17 11:50 02/21/17 12:30 INR, PTT INR 1.98 (0.82-1.09) H D 02/21/17 11:50 - ....Imaging Chest X-ray: Report Reviewed, Image Reviewed EKG: Report Reviewed, Image Reviewed Other: Report Reviewed, Image Reviewed (tele-AFib, HR controlled, no sig pauses or bradycardia) Assessment/Plan Palpitations -suspected due to AF w/ RVR; reports Metoprolol recently discontinued at [facility] after stent due to low BP -HR adequately controlled currently after Toprol resumed -BP tolerating toprol thus far -cont to Montitor on telemetry -Does have history of bradycardia in past, and thus may need PPM if tachy-candice syndrome is confirmed. -echo showed grossly normal LV systolic function, mild MR, mild Tr, no pericardial effusion -cont Xarelto Pre-syncope -occurs in setting of rapid palpitations, as above. Suspected due to AF w/ RVR -Monitor on telemetry -Check orthostatics. Reports recent increase in Lasix dose to daily dosing and frequent prolonged urination. May have component of dehydration triggering rapid AF -echo showed grossly normal LV systolic function, mild MR, mild Tr, no pericardial effusion Dyspnea on exertion -chronic and multifactorial: Obesity, variable LV dysfunction, now probable AF w / RVR. --echo showed grossly normal LV systolic function, mild MR, mild Tr, no pericardial effusion -CTA chest done showed no PE CAD -hx of multivessel PCI, last LAD at [place] 12/2016. -Continue Plavix monotherapy (Also taking Xarelto for AF). Hypertension -as above
--- NOTE | 2017-02-22 12:00 | HP ---
Admitting History and Physical - Admission History of Present Illness: 61 yo M with multiple medical comorbidities including HTN, NIDDM, HLD, Morbid Obesity, TBI, Anxiety, CHF, A-fib w/RvR ( On Coumadin), and CAD ( s/p stent placement x 7 ) who presents with SOB. Patient reports recurrent episodes of SOB, heart fluttering, transient vision loss beginning yesterday evening while sitting on toilet. Patient states that yesterday upon standing he had experienced symptoms, which later resolved when sitting down, and recurred again upon standing. He also endorses substernal chest pain yesterday evening while laying in bed, attributed to anxiety after experiencing tachypnea, tachycardia, and nervousness, of new symptoms. This AM he had another episode of SOB, heart fluttering, and vision obscuration 1 hour [employer] following standing from bed. Recently home health nurse adjusted lasix 40 mg PO QD from once a week to QD for the past 2 days. HE has been experiencing frequent urination for the past two days.Denies N/V, F/C, extremity swelling, PND< orthopnea, syncope, weakness, vertigo, lightheadedness, dysuria, constipation, diarrhea.Former smoker, with tobacco cessation years ago. EtOH cessation 20 years ago. No H/o DVT/PE, malignancy, or trauma within [address] Akash Russell. Cardiology Dr. Paredes. [facility] admission from 01/06-01/10 for chest pain. Patient states that he had stent placement one week ago and Metoprolol adjustment. - Past Medical History [employer]: Yes: Other (craniotomy s/p evacuation [facility] on [facility] ) Cardiovascular: Yes: AFIB, CAD (prior PCI, last 12/2016 at [place], LAD JOHN), CHF (chronic primarily diastolic), HTN, Other Pulmonary: Yes: COPD Gastrointestinal: Yes: Other (6 years earlier -negative EGD and colonoscopy) Hepatobiliary: Yes: Cirrhosis, Hepatitis C, Other (patient does not admit to cirrhosis (normal liver on ct scan does have splenomegaly)) Renal/: Yes: BPH, Renal Calculi Psych: Yes: Anxiety, Depression Musculoskeletal: Yes: Chronic low back pain, Osteoarthritis Endocrine: Yes: Diabetes Mellitus - Past Surgical History Past Surgical History: Yes: Colonoscopy, Upper Endoscopy - Smoking History Smoking history: Former smoker Have you smoked in the past 12 months: No Aproximately how many cigarettes per day: 0 If you are a former smoker, when did you quit?: 20 years earlier - Alcohol/Substance Use Hx Alcohol Use: No History of Substance Use: reports: None - Social History ADL: Family Assistance Occupation: worked in [employer] with exposures History of Recent Travel: No Home Medications - Allergies Allergies/Adverse Reactions: Allergies Allergy/AdvReac Type Severity Reaction Status Date / Time No Known Allergies Allergy Verified 02/21/17 11:40 - Home Medications Home Medications: Ambulatory Orders Alprazolam [Xanax] 1 mg PO TID 03/28/13 Mag Hydrox/Al Hydrox/Simeth [Mylanta Oral Suspension -] 30 ml PO Q6H PRN #0 cup 08/20/14 Metoprolol Succinate [Toprol XL -] 12.5 mg PO BID 05/21/15 Oxycodone HCl 30 mg PO Q6H MDD 60 05/21/15 Tamsulosin HCl [Flomax] 0.4 mg PO DAILY 12/26/15 Lisinopril [Zestril] 25 mg PO DAILY 04/24/16 Acetaminophen [Tylenol .Regular Strength -] 650 mg PO Q6H PRN #0 tablet Atorvastatin Ca [Lipitor] 20 mg PO HS tablet 01/09/17 Docusate Sodium [Colace -] 300 mg PO HS cap 01/09/17 Finasteride [Proscar -] 5 mg PO DAILY tablet 01/09/17 Furosemide [Lasix -] 40 mg PO DAILY tablet 01/09/17 Hydrocortisone 2.5% Lotion [Hytone 2.5% Lotion -] 1 applic TP BID PRN #0 bottle 01/09/17 Methylnaltrexone [place] [Relistor -] 12 mg SQ DAILY kit 01/09/17 Metoprolol Succinate [Toprol XL -] 12.5 mg PO DAILY tab 01/09/17 Pantoprazole Sodium [Protonix -] 40 mg PO DAILY tab 01/09/17 Polyethylene Glycol 3350 [Miralax 119 gm Btl -] 17 gm PO DAILY bottle 01/09/17 Clopidogrel Bisulfate [Plavix -] 75 mg PO DAILY 02/21/17 Levetiracetam [Keppra -] 750 mg PO BID 02/21/17 Rivaroxaban [Xarelto -] 10 mg PO DAILY 02/21/17 Family Disease History - Family Disease History Family Disease History: Heart Disease: Sister (VT in her early 60s), CA: Brother , Other: Mother (P.E. post hip surgery) Physical Examination Vital Signs: Vital Signs Temperature 98.0 F 02/22/17 09:00 Pulse Rate 68 02/22/17 09:00 Respiratory Rate 20 02/22/17 09:00 Blood Pressure 120/75 02/22/17 09:00 O2 Sat by Pulse Oximetry (%) 98 02/22/17 07:35 Cardiovascular: Yes: S1, S2 Respiratory: Yes: Regular, CTA Bilaterally Gastrointestinal: Yes: Normal Bowel Sounds, Soft. No: Tenderness Edema: No Labs: CBC, BMP 02/21/17 11:50 02/21/17 12:30 Problem List - Problems (1) Diabetes Assessment/Plan: bgm diet Code(s): E11.9 - TYPE 2 DIABETES MELLITUS WITHOUT COMPLICATIONS Qualifiers: Diabetes mellitus type: type 2 Diabetes mellitus complication status: with circulatory complication (2) History of coronary artery stent placement Assessment/Plan: on plavix telemtry cardio on board Code(s): Z95.5 - PRESENCE OF CORONARY ANGIOPLASTY IMPLANT AND GRAFT (3) Hypertension Assessment/Plan: Vital Signs Period Temp Pulse Resp BP Sys/Mixon Pulse Ox Last 24 Hr 98.0 F-98.7 F 68-92 20-24 113-132/68-86 98-99 Code(s): I10 - ESSENTIAL (PRIMARY) HYPERTENSION Qualifiers: Hypertension type: essential hypertension Qualified Code(s): I10 - Essential (primary) hypertension (4) Morbid obesity Code(s): E66.01 - MORBID (SEVERE) OBESITY DUE TO EXCESS CALORIES (5) Palpitations Assessment/Plan: due to afib monitor on tele on current meds Code(s): R00.2 - PALPITATIONS (6) Atrial fibrillation Assessment/Plan: on xarelto monitor rate Code(s): I48.91 - UNSPECIFIED ATRIAL FIBRILLATION Qualifiers: Atrial fibrillation type: chronic Qualified Code(s): I48.2 - Chronic atrial fibrillation
[2017-02-22] MEDS ORDERED: RIVAROXABAN 20 MG TABLET PO SCH (18:00)
[2017-02-22] MEDS: DOCUSATE SODIUM 100 MG CAPSULE (FP) PO SCH (21:26)
[2017-02-22 22:56] LABS: URINE LEUK ESTERASE Negative (NEGATIVE)
[2017-02-23] MEDS: ACETAMINOPHEN 325 MG TABLET (FP) PO PRN ×4 (00:37→18:33)
[2017-02-23] MEDS: oxyCODONE HCL 5 MG TABLET PO PRN ×4 (00:38→18:33)
[2017-02-23] MEDS: ALPRAZolam 0.25 MG TABLET PO SCH ×3 (06:24→22:16)
[2017-02-23] MEDS ORDERED: PT OWN MED DRAWER 7, Y5N ONE (09:17)
[2017-02-23] MEDS: Methylnaltrexone Bromide 12 MG/0.6 ML KIT SQ SCH ×2 (09:50→09:59)
[2017-02-23] MEDS: LISINOPRIL 20 MG TABLET (FP) PO SCH (09:51)
[2017-02-23] MEDS: levETIRAcetam 250 MG TABLET (FP) PO SCH ×2 (09:52→22:15)
[2017-02-23] MEDS: FUROSEMIDE 20 MG TABLET (FP) PO SCH (09:52)
[2017-02-23] MEDS: PANTOPRAZOLE 40 MG TABLET (FP) PO SCH (09:52)
[2017-02-23] MEDS: FINASTERIDE 5 MG TABLET (FP) PO SCH (09:52)
[2017-02-23] MEDS: TAMSULOSIN HCL 0.4 MG CAP.ER.24H (FP) PO SCH (09:52)
[2017-02-23] MEDS: CLOPIDOGREL BISULFATE 75 MG TABLET (FP) PO SCH (09:52)
[2017-02-23] MEDS: METOPROLOL SUCCINATE 25 MG TAB.SR.24H (FP) PO SCH ×2 (09:52→22:15)
[2017-02-23] MEDS: POLYETHYLENE GLYCOL 3350 119 GM BTL PO SCH ×2 (09:52→09:58)
--- NOTE | 2017-02-23 10:10 | PN ---
Progress Note, Physician History of Present Illness: seen and examined today, anxious, states he didnt sleep, feels like he is withdrawing from his chronic pain medication. - Current Medication List Current Medications: Active Medications Acetaminophen (Tylenol -) 650 mg PO Q6H PRN PRN Reason: FEVER OR PAIN Last Admin: 02/23/17 06:24 Dose: 650 mg Alprazolam (Xanax -) 1 mg PO TID [facility] Last Admin: 02/23/17 06:24 Dose: 1 mg Atorvastatin Calcium (Lipitor -) 20 mg PO HS [facility] Last Admin: 02/22/17 21:29 Dose: 20 mg Clopidogrel Bisulfate (Plavix -) 75 mg PO DAILY [facility] Last Admin: 02/23/17 09:52 Dose: 75 mg Docusate Sodium (Colace -) 300 mg PO HS [facility] Last Admin: 02/22/17 21:26 Dose: Not Given Finasteride (Proscar -) 5 mg PO DAILY [facility] Last Admin: 02/23/17 09:52 Dose: 5 mg Furosemide (Lasix -) 20 mg PO DAILY [facility] Last Admin: 02/23/17 09:52 Dose: 20 mg Hydrocortisone (Hytone 1% Cream -) 1 applic TP DAILY PRN PRN Reason: DRY SKIN Levetiracetam (Keppra -) 750 mg PO BID [facility] Last Admin: 02/23/17 09:52 Dose: 750 mg Lisinopril (Prinivil) 20 mg PO DAILY [facility] Last Admin: 02/23/17 09:51 Dose: 20 mg Methylnaltrexone [place] (Relistor -) 12 mg SQ DAILY [facility] Last Admin: 02/23/17 09:59 Dose: Not Given Metoprolol Succinate (Toprol Xl -) 12.5 mg PO BID [facility] Last Admin: 02/23/17 09:52 Dose: 12.5 mg Oxycodone HCl (Roxicodone -) 15 mg PO Q6H PRN PRN Reason: PAIN Last Admin: 02/23/17 06:25 Dose: 15 mg Pantoprazole Sodium (Protonix -) 40 mg PO DAILY [facility] Last Admin: 02/23/17 09:52 Dose: 40 mg Polyethylene Glycol (Miralax (For Daily Use) -) 17 gm PO DAILY [facility] Last Admin: 02/23/17 09:58 Dose: Not Given Rivaroxaban (Xarelto -) 20 mg PO DAILY@1800 [facility] Last Admin: 02/22/17 17:36 Dose: 20 mg Tamsulosin HCl (Flomax -) 0.4 mg PO DAILY@0830 [facility] Last Admin: 02/23/17 09:52 Dose: 0.4 mg - Objective Vital Signs: Vital Signs Temperature 97.6 F 02/23/17 05:47 Pulse Rate 74 02/23/17 05:47 Respiratory Rate 20 02/23/17 05:47 Blood Pressure 119/62 02/23/17 05:47 O2 Sat by Pulse Oximetry (%) 95 02/22/17 23:00 Constitutional: Yes: No Distress, Anxious, Obese Eyes: Yes: Conjunctiva Clear, EOM Intact, PERRL HENT: Yes: Atraumatic, Normocephalic Neck: Yes: Supple, Trachea Midline Cardiovascular: Yes: Pulse Irregular, S1, S2. No: Bradycardia, Tachycardia, Bruit, JVD, Gallop, Murmur, Rub, S3, S4, Varicosities Respiratory: Yes: Regular, CTA Bilaterally. No: Rales, Rhonchi, Wheezes Gastrointestinal: Yes: Normal Bowel Sounds, Soft. No: Distention, Tenderness Extremities: Yes: WNL Edema: No Peripheral Pulses: Left Doralis Pedis: 2+, Right Dorsalis Pedis: 2+ Integumentary: Yes: WNL Neurological: Yes: Alert, Oriented Psychiatric: Yes: Alert, Oriented Labs: CBC, BMP 02/21/17 11:50 02/21/17 12:30 INR, PTT INR 1.98 (0.82-1.09) H D 02/21/17 11:50 - ....Imaging Chest X-ray: Report Reviewed, Image Reviewed EKG: Report Reviewed, Image Reviewed Other: Report Reviewed, Image Reviewed (tele-AFib, HR controlled, short pauses but none significant) Assessment/Plan Palpitations -suspected due to AF w/ RVR; reported Metoprolol recently discontinued at [facility] after stent due to low BP -HR adequately controlled currently on Toprol 12.5mg bid and there has been no significant pauses on tele or prolonged symptomatic bradycardia and BP tolerating toprol thus far, would cont this dose -may need PPM if tachy-candice syndrome develops -echo showed grossly normal LV systolic function, mild MR, mild Tr, no pericardial effusion -cont Xarelto -If in fact pt is withdrawing from his pain medication this is an issue as it will effect his heart rate control as well as underlying CAD and CHF, chronic pain med dependence needs to be addressed Pre-syncope -occurs in setting of rapid palpitations, as above. Suspected due to AF w/ RVR -Monitor on telemetry -Check orthostatic BP. Reports recent increase in Lasix dose to daily dosing and frequent prolonged urination. May have component of dehydration triggering rapid AF -echo showed grossly normal LV systolic function, mild MR, mild Tr, no pericardial effusion Dyspnea on exertion -chronic and multifactorial: Obesity, variable LV dysfunction, now probable AF w / RVR. -echo showed grossly normal LV systolic function, mild MR, mild Tr, no pericardial effusion -CTA chest done showed no PE CAD -hx of multivessel PCI, last LAD at [place] 12/2016. -Continue Plavix monotherapy (Also taking Xarelto for AF). Hypertension -as above
--- NOTE | 2017-02-23 13:25 | PN ---
Progress Note, Physician History of Present Illness: C/O PAIN WANTS PAIN MEDS INCREASED - Current Medication List Current Medications: Active Medications Acetaminophen (Tylenol -) 650 mg PO Q6H PRN PRN Reason: FEVER OR PAIN Last Admin: 02/23/17 06:24 Dose: 650 mg Alprazolam (Xanax -) 1 mg PO TID [facility] Last Admin: 02/23/17 13:17 Dose: 1 mg Atorvastatin Calcium (Lipitor -) 20 mg PO HS [facility] Last Admin: 02/22/17 21:29 Dose: 20 mg Clopidogrel Bisulfate (Plavix -) 75 mg PO DAILY [facility] Last Admin: 02/23/17 09:52 Dose: 75 mg Docusate Sodium (Colace -) 300 mg PO HS [facility] Last Admin: 02/22/17 21:26 Dose: Not Given Finasteride (Proscar -) 5 mg PO DAILY [facility] Last Admin: 02/23/17 09:52 Dose: 5 mg Furosemide (Lasix -) 20 mg PO DAILY [facility] Last Admin: 02/23/17 09:52 Dose: 20 mg Hydrocortisone (Hytone 1% Cream -) 1 applic TP DAILY PRN PRN Reason: DRY SKIN Levetiracetam (Keppra -) 750 mg PO BID [facility] Last Admin: 02/23/17 09:52 Dose: 750 mg Lisinopril (Prinivil) 20 mg PO DAILY [facility] Last Admin: 02/23/17 09:51 Dose: 20 mg Methylnaltrexone [place] (Relistor -) 12 mg SQ DAILY [facility] Last Admin: 02/23/17 09:59 Dose: Not Given Metoprolol Succinate (Toprol Xl -) 12.5 mg PO BID [facility] Last Admin: 02/23/17 09:52 Dose: 12.5 mg Oxycodone HCl (Roxicodone -) 15 mg PO Q6H PRN PRN Reason: PAIN Last Admin: 02/23/17 06:25 Dose: 15 mg Pantoprazole Sodium (Protonix -) 40 mg PO DAILY [facility] Last Admin: 02/23/17 09:52 Dose: 40 mg Polyethylene Glycol (Miralax (For Daily Use) -) 17 gm PO DAILY [facility] Last Admin: 02/23/17 09:58 Dose: Not Given Rivaroxaban (Xarelto -) 20 mg PO DAILY@1800 [facility] Last Admin: 02/22/17 17:36 Dose: 20 mg Tamsulosin HCl (Flomax -) 0.4 mg PO DAILY@0830 [facility] Last Admin: 02/23/17 09:52 Dose: 0.4 mg - Objective Vital Signs: Vital Signs Temperature 98.1 F 02/23/17 10:00 Pulse Rate 71 02/23/17 10:00 Respiratory Rate 20 02/23/17 10:00 Blood Pressure 109/74 02/23/17 10:00 O2 Sat by Pulse Oximetry (%) 97 02/23/17 07:00 Cardiovascular: Yes: S1 Respiratory: Yes: Regular, CTA Bilaterally Gastrointestinal: Yes: Normal Bowel Sounds, Soft Labs: CBC, BMP 02/21/17 11:50 02/21/17 12:30 INR, PTT INR 1.98 (0.82-1.09) H D 02/21/17 11:50 Problem List - Problems (1) Diabetes Assessment/Plan: bgm diet Code(s): E11.9 - TYPE 2 DIABETES MELLITUS WITHOUT COMPLICATIONS Qualifiers: Diabetes mellitus type: type 2 Diabetes mellitus complication status: with circulatory complication (2) History of coronary artery stent placement Assessment/Plan: on plavix telemtry cardio on board Code(s): Z95.5 - PRESENCE OF CORONARY ANGIOPLASTY IMPLANT AND GRAFT (3) Hypertension Assessment/Plan: Vital Signs Period Temp Pulse Resp BP Sys/Mixon Pulse Ox Last 24 Hr 98.0 F-98.7 F 68-92 20-24 113-132/68-86 98-99 Code(s): I10 - ESSENTIAL (PRIMARY) HYPERTENSION Qualifiers: Hypertension type: essential hypertension Qualified Code(s): I10 - Essential (primary) hypertension (4) Morbid obesity Code(s): E66.01 - MORBID (SEVERE) OBESITY DUE TO EXCESS CALORIES (5) Palpitations Assessment/Plan: due to afib monitor on tele on current meds Code(s): R00.2 - PALPITATIONS (6) Atrial fibrillation Assessment/Plan: on xarelto monitor rate Code(s): I48.91 - UNSPECIFIED ATRIAL FIBRILLATION Qualifiers: Atrial fibrillation type: chronic Qualified Code(s): I48.2 - Chronic atrial fibrillation (7) Back pain Assessment/Plan: ON PAIN MEDS WANTS IT INCREASED DETOX/PAIN CONSULT Code(s): M54.9 - DORSALGIA, UNSPECIFIED Qualifiers: Back pain location: low back pain Chronicity: chronic Back pain laterality: bilateral Sciatica presence: with sciatica presence unspecified Qualified Code(s): M54.5 - Low back pain
[2017-02-23] MEDS ORDERED: TAMSULOSIN HCL 0.4 MG CAP.ER.24H (FP) PO ONE (14:53)
[2017-02-23] MEDS: RIVAROXABAN 20 MG TABLET PO SCH (17:55)
[2017-02-23] MEDS: DOCUSATE SODIUM 100 MG CAPSULE (FP) PO SCH (22:15)
[2017-02-23] MEDS: ATORVASTATIN CA 20 MG TABLET (FP) PO SCH (22:15)
[2017-02-24] MEDS: ACETAMINOPHEN 325 MG TABLET (FP) PO PRN ×4 (00:32→19:51)
[2017-02-24] MEDS: oxyCODONE HCL 5 MG TABLET PO PRN ×4 (00:32→19:50)
[2017-02-24] MEDS: ALPRAZolam 0.25 MG TABLET PO SCH ×3 (06:35→22:05)
[2017-02-24] MEDS ORDERED: PT OWN MED DRAWER 7, Y5N ONE (08:26)
[2017-02-24] MEDS: levETIRAcetam 250 MG TABLET (FP) PO SCH ×2 (09:12→22:05)
[2017-02-24] MEDS: METOPROLOL SUCCINATE 25 MG TAB.SR.24H (FP) PO SCH ×3 (09:13→22:13)
[2017-02-24] MEDS: Methylnaltrexone Bromide 12 MG/0.6 ML KIT SQ SCH (09:13)
[2017-02-24] MEDS: FUROSEMIDE 20 MG TABLET (FP) PO SCH ×2 (09:13→14:21)
[2017-02-24] MEDS: PANTOPRAZOLE 40 MG TABLET (FP) PO SCH (09:13)
[2017-02-24] MEDS: TAMSULOSIN HCL 0.4 MG CAP.ER.24H (FP) PO SCH (09:13)
[2017-02-24] MEDS: LISINOPRIL 20 MG TABLET (FP) PO SCH (09:13)
[2017-02-24] MEDS: POLYETHYLENE GLYCOL 3350 119 GM BTL PO SCH (09:14)
[2017-02-24] MEDS: CLOPIDOGREL BISULFATE 75 MG TABLET (FP) PO SCH (09:14)
[2017-02-24] MEDS: FINASTERIDE 5 MG TABLET (FP) PO SCH (09:14)
--- NOTE | 2017-02-24 13:15 | PN ---
Progress Note, Physician History of Present Illness: seen and examined today in nad. anxious at baseline. no overnight events. no new complaints. - Current Medication List Current Medications: Active Medications Acetaminophen (Tylenol -) 650 mg PO Q6H PRN PRN Reason: FEVER OR PAIN Last Admin: 02/24/17 06:36 Dose: 650 mg Alprazolam (Xanax -) 1 mg PO TID [facility] Last Admin: 02/24/17 06:35 Dose: 1 mg Atorvastatin Calcium (Lipitor -) 20 mg PO HS [facility] Last Admin: 02/23/17 22:15 Dose: 20 mg Clopidogrel Bisulfate (Plavix -) 75 mg PO DAILY [facility] Last Admin: 02/24/17 09:14 Dose: 75 mg Docusate Sodium (Colace -) 300 mg PO HS [facility] Last Admin: 02/23/17 22:15 Dose: Not Given Finasteride (Proscar -) 5 mg PO DAILY [facility] Last Admin: 02/24/17 09:14 Dose: 5 mg Furosemide (Lasix -) 20 mg PO DAILY [facility] Last Admin: 02/24/17 09:13 Dose: 20 mg Hydrocortisone (Hytone 1% Cream -) 1 applic TP DAILY PRN PRN Reason: DRY SKIN Levetiracetam (Keppra -) 750 mg PO BID [facility] Last Admin: 02/24/17 09:12 Dose: 750 mg Lisinopril (Prinivil) 20 mg PO DAILY [facility] Last Admin: 02/24/17 09:13 Dose: 20 mg Methylnaltrexone [place] (Relistor -) 12 mg SQ DAILY [facility] Last Admin: 02/24/17 09:13 Dose: Not Given Metoprolol Succinate (Toprol Xl -) 12.5 mg PO BID [facility] Last Admin: 02/24/17 09:13 Dose: 12.5 mg Oxycodone HCl (Roxicodone -) 15 mg PO Q6H PRN PRN Reason: PAIN Last Admin: 02/24/17 06:36 Dose: 15 mg Pantoprazole Sodium (Protonix -) 40 mg PO DAILY [facility] Last Admin: 02/24/17 09:13 Dose: 40 mg Polyethylene Glycol (Miralax (For Daily Use) -) 17 gm PO DAILY [facility] Last Admin: 02/24/17 09:14 Dose: Not Given Rivaroxaban (Xarelto -) 20 mg PO DAILY@1800 [facility] Last Admin: 02/23/17 17:55 Dose: 20 mg Tamsulosin HCl (Flomax -) 0.8 mg PO DAILY@0830 [facility] Last Admin: 02/24/17 09:13 Dose: 0.8 mg - Objective Vital Signs: Vital Signs Temperature 98.5 F 02/24/17 10:00 Pulse Rate 78 02/24/17 12:28 Respiratory Rate 22 02/24/17 10:00 Blood Pressure 137/57 02/24/17 12:28 O2 Sat by Pulse Oximetry (%) 95 02/24/17 10:00 Constitutional: Yes: No Distress, Calm, Obese Eyes: Yes: Conjunctiva Clear, EOM Intact, PERRL HENT: Yes: Atraumatic, Normocephalic Neck: Yes: Supple, Trachea Midline Cardiovascular: Yes: Pulse Irregular, S1, S2. No: Regular Rate and Rhythm, Bradycardia, Tachycardia, Bruit, JVD, Gallop, Murmur, Rub, S3, S4, Varicosities Respiratory: Yes: Regular, Diminished. No: Rales, Rhonchi, SOB, Wheezes Gastrointestinal: Yes: Normal Bowel Sounds, Soft. No: Distention, Tenderness Extremities: Yes: WNL Edema: No Peripheral Pulses WNL: Yes Neurological: Yes: Alert, Oriented Psychiatric: Yes: Alert, Oriented Labs: CBC, BMP 02/21/17 11:50 02/21/17 12:30 INR, PTT INR 1.98 (0.82-1.09) H D 02/21/17 11:50 - ....Imaging Chest X-ray: Report Reviewed, Image Reviewed EKG: Report Reviewed, Image Reviewed Other: Report Reviewed, Image Reviewed (tele-AFib, HR controlled, no sig pauses or sig bradycardia) Assessment/Plan Palpitations -suspected due to AF w/ RVR; reported Metoprolol recently discontinued at [facility] after stent due to low BP -HR adequately controlled currently on Toprol 12.5mg bid and there has been no significant pauses on tele or prolonged symptomatic bradycardia and BP tolerating toprol thus far, would cont this dose -may need PPM if tachy-candice syndrome develops -echo showed grossly normal LV systolic function, mild MR, mild Tr, no pericardial effusion -cont Xarelto [id number] BP today did show a significant drop with standing c/w orthostatic hypotension -low dose Lasix for now, can decrease to every other day -safety precautions -echo showed grossly normal LV systolic function, mild MR, mild Tr, no pericardial effusion Dyspnea on exertion -chronic and multifactorial: Obesity, variable LV dysfunction, now probable AF w / RVR. -echo showed grossly normal LV systolic function, mild MR, mild Tr, no pericardial effusion -CTA chest done showed no PE CAD -hx of multivessel PCI, last LAD at [place] 12/2016. -Cont Plavix monotherapy (Also taking Xarelto for AF). Hypertension -as above
--- NOTE | 2017-02-24 16:14 | PN ---
Progress Note, Physician Chief Complaint: AWAKE ALERT MILD DISTRESS - Current Medication List Current Medications: Active Medications Acetaminophen (Tylenol -) 650 mg PO Q6H PRN PRN Reason: FEVER OR PAIN Last Admin: 02/24/17 13:17 Dose: 650 mg Alprazolam (Xanax -) 1 mg PO TID [facility] Last Admin: 02/24/17 13:17 Dose: 1 mg Atorvastatin Calcium (Lipitor -) 20 mg PO HS [facility] Last Admin: 02/23/17 22:15 Dose: 20 mg Clopidogrel Bisulfate (Plavix -) 75 mg PO DAILY [facility] Last Admin: 02/24/17 09:14 Dose: 75 mg Docusate Sodium (Colace -) 300 mg PO HS [facility] Last Admin: 02/23/17 22:15 Dose: Not Given Finasteride (Proscar -) 5 mg PO DAILY [facility] Last Admin: 02/24/17 09:14 Dose: 5 mg Furosemide (Lasix -) 20 mg PO Q2D@1000 [facility] Last Admin: 02/24/17 14:21 Dose: Not Given Hydrocortisone (Hytone 1% Cream -) 1 applic TP DAILY PRN PRN Reason: DRY SKIN Levetiracetam (Keppra -) 750 mg PO BID [facility] Last Admin: 02/24/17 09:12 Dose: 750 mg Lisinopril (Prinivil) 20 mg PO DAILY [facility] Last Admin: 02/24/17 09:13 Dose: 20 mg Methylnaltrexone [place] (Relistor -) 12 mg SQ DAILY [facility] Last Admin: 02/24/17 09:13 Dose: Not Given Metoprolol Succinate (Toprol Xl -) 12.5 mg PO BID [facility] Last Admin: 02/24/17 09:13 Dose: 12.5 mg Oxycodone HCl (Roxicodone -) 15 mg PO Q6H PRN PRN Reason: PAIN Last Admin: 02/24/17 13:16 Dose: 15 mg Oxycodone HCl (Oxycontin -) 10 mg PO BID [facility] Pantoprazole Sodium (Protonix -) 40 mg PO DAILY [facility] Last Admin: 02/24/17 09:13 Dose: 40 mg Polyethylene Glycol (Miralax (For Daily Use) -) 17 gm PO DAILY [facility] Last Admin: 02/24/17 09:14 Dose: Not Given Rivaroxaban (Xarelto -) 20 mg PO DAILY@1800 [facility] Last Admin: 02/23/17 17:55 Dose: 20 mg Tamsulosin HCl (Flomax -) 0.8 mg PO DAILY@0830 [facility] Last Admin: 02/24/17 09:13 Dose: 0.8 mg - Objective Vital Signs: Vital Signs Temperature 98 F 02/24/17 14:20 Pulse Rate 75 02/24/17 14:20 Respiratory Rate 20 02/24/17 14:20 Blood Pressure 99/65 02/24/17 14:20 O2 Sat by Pulse Oximetry (%) 95 02/24/17 10:00 Constitutional: Yes: Mild Distress Eyes: Yes: WNL HENT: Yes: WNL Neck: Yes: WNL Cardiovascular: Yes: Pulse Irregular Respiratory: Yes: WNL Gastrointestinal: Yes: WNL Genitourinary: Yes: WNL Musculoskeletal: Yes: Back Pain, Muscle Weakness Extremities: Yes: Other Edema: Yes Peripheral Pulses WNL: Yes Integumentary: Yes: WNL Wound/Incision: Yes: Clean/Dry Neurological: Yes: Pre-Existing Deficit ...Motor Strength: LLE, RLE Psychiatric: Yes: Other Labs: CBC, BMP 02/21/17 11:50 02/21/17 12:30 INR, PTT INR 1.98 (0.82-1.09) H D 02/21/17 11:50 Problem List - Problems (1) CAD in [place] artery Code(s): I25.10 - ATHSCL HEART DISEASE OF [place] CORONARY ARTERY W/O ANG PCTRS (2) Diabetes Code(s): E11.9 - TYPE 2 DIABETES MELLITUS WITHOUT COMPLICATIONS Qualifiers: Diabetes mellitus type: type 2 Diabetes mellitus complication status: with circulatory complication (3) Dyspnea on exertion Code(s): R06.09 - OTHER FORMS OF DYSPNEA (4) H/O craniotomy Code(s): Z98.890 - OTHER SPECIFIED POSTPROCEDURAL STATES (5) History of coronary artery stent placement Code(s): Z95.5 - PRESENCE OF CORONARY ANGIOPLASTY IMPLANT AND GRAFT (6) Hypertension Code(s): I10 - ESSENTIAL (PRIMARY) HYPERTENSION Qualifiers: Hypertension type: essential hypertension Qualified Code(s): I10 - Essential (primary) hypertension (7) Morbid obesity Code(s): E66.01 - MORBID (SEVERE) OBESITY DUE TO EXCESS CALORIES (8) Palpitations Code(s): R00.2 - PALPITATIONS (9) Seizure Code(s): R56.9 - UNSPECIFIED CONVULSIONS (10) Acute on chronic diastolic (congestive) heart failure Code(s): I50.33 - ACUTE ON CHRONIC DIASTOLIC (CONGESTIVE) HEART FAILURE (11) Anxiety Code(s): F41.9 - ANXIETY DISORDER, UNSPECIFIED (12) Atrial fibrillation Code(s): I48.91 - UNSPECIFIED ATRIAL FIBRILLATION Qualifiers: Atrial fibrillation type: chronic Qualified Code(s): I48.2 - Chronic atrial fibrillation Assessment/Plan PAIN CONTROL CARDIO EVAL APPRECIATED CHECK LABS OOB TO CHAIR TELEMETRY MONITORING DC PLANNING TOMORROW
--- NOTE | 2017-02-24 16:18 | DS ---
Physical Examination Vital Signs: Vital Signs Temperature 98 F 02/24/17 14:20 Pulse Rate 75 02/24/17 14:20 Respiratory Rate 20 02/24/17 14:20 Blood Pressure 99/65 02/24/17 14:20 O2 Sat by Pulse Oximetry (%) 95 02/24/17 10:00 Constitutional: Yes: Mild Distress Eyes: Yes: WNL HENT: Yes: WNL Neck: Yes: WNL Cardiovascular: Yes: Pulse Irregular Respiratory: Yes: WNL Gastrointestinal: Yes: WNL Renal/: Yes: WNL Musculoskeletal: Yes: Back Pain, Muscle Weakness Extremities: Yes: WNL Edema: No Peripheral Pulses WNL: Yes Integumentary: Yes: WNL Wound/Incision: Yes: Clean/Dry Neurological: Yes: Pre-Existing Deficit ...Motor Strength: LLE, RLE Psychiatric: Yes: Other Labs: CBC, BMP 02/21/17 11:50 02/21/17 12:30 Discharge Summary Reason For Visit: SOB,RAPID PALPITATIONS Current Active Problems CAD in [place] artery (Acute) Diabetes (Acute) Dyspnea on exertion (Acute) H/O craniotomy (Acute) History of coronary artery stent placement (Acute) Hypertension (Acute) Morbid obesity (Acute) Palpitations (Acute) Permanent atrial fibrillation (Acute) Pre-syncope (Acute) Rapid palpitations (Acute) Seizure (Acute) Hospital Course: OBSERVATION STATUS FOR PALPITATIONS/ANXIETY/ATRIAL FIB TACHY SYNDROME - Instructions Diet, Activity, Other Instructions: SEE CARDIOLOGY OUTPATIENT DR RUSSELL IN 1-2 WEEKS Referrals: Akash Russell MD [Primary Care Provider] - Disposition: VNS/HOME HEALTH CARE - Home Medications Comprehensive Discharge Medication List: Ambulatory Orders Alprazolam [Xanax] 1 mg PO TID 03/28/13 Mag Hydrox/Al Hydrox/Simeth [Mylanta Oral Suspension -] 30 ml PO Q6H PRN #0 cup 08/20/14 Metoprolol Succinate [Toprol XL -] 12.5 mg PO BID 05/21/15 Oxycodone HCl 30 mg PO Q6H PRN MDD 60 05/21/15 Tamsulosin HCl [Flomax] 0.4 mg PO DAILY 12/26/15 Lisinopril [Zestril] 25 mg PO DAILY 04/24/16 Acetaminophen [Tylenol .Regular Strength -] 650 mg PO Q6H PRN #0 tablet Atorvastatin Ca [Lipitor] 20 mg PO HS tablet 01/09/17 Docusate Sodium [Colace -] 300 mg PO HS cap 01/09/17 Finasteride [Proscar -] 5 mg PO DAILY tablet 01/09/17 Furosemide [Lasix -] 40 mg PO DAILY tablet 01/09/17 Hydrocortisone 2.5% Lotion [Hytone 2.5% Lotion -] 1 applic TP BID PRN #0 bottle 01/09/17 Methylnaltrexone [place] [Relistor -] 12 mg SQ DAILY kit 01/09/17 Metoprolol Succinate [Toprol XL -] 12.5 mg PO DAILY tab 01/09/17 Pantoprazole Sodium [Protonix -] 40 mg PO DAILY tab 01/09/17 Polyethylene Glycol 3350 [Miralax 119 gm Btl -] 17 gm PO DAILY bottle 01/09/17 Clopidogrel Bisulfate [Plavix -] 75 mg PO DAILY 02/21/17 Levetiracetam [Keppra -] 750 mg PO BID 02/21/17 Rivaroxaban [Xarelto -] 10 mg PO DAILY 02/21/17 Oxycodone Sr [Oxycontin] 10 mg PO BID 02/24/17
[2017-02-24] MEDS: RIVAROXABAN 20 MG TABLET PO SCH (17:19)
[2017-02-24] MEDS ORDERED: oxyCODONE HCL 5 MG TABLET PO ONE (20:45)
[2017-02-24] MEDS: ATORVASTATIN CA 20 MG TABLET (FP) PO SCH (22:05)
[2017-02-24] MEDS: DOCUSATE SODIUM 100 MG CAPSULE (FP) PO SCH ×2 (22:05→22:09)
[2017-02-24] MEDS: oxyCODONE HCL 10 MG SUSTAINED ACTING TABLET PO SCH (22:06)
--- NOTE | 2017-02-25 01:48 | EKG ---
Test Reason : Blood Pressure : / mmHG Vent. Rate : 110 BPM Atrial Rate : 102 BPM P-R Int : 000 ms QRS Dur : 100 ms QT Int : 376 ms P-R-T Axes : 000 -09 014 degrees QTc Int : 508 ms ATRIAL FIBRILLATION WITH RAPID VENTRICULAR RESPONSE INCOMPLETE RIGHT BUNDLE BRANCH BLOCK T WAVE ABNORMALITY, CONSIDER ANTERIOR ISCHEMIA ABNORMAL ECG WHEN COMPARED WITH ECG OF 21-FEB-2017 11:26, LIKELY NO SIGNIFICANT CHANGES Confirmed by FRANK HULL, DAVID ([id number]) on 02/25/2017 1:47:46 AM Referred By: Confirmed By:DAVID MARIE MD
--- NOTE | 2017-02-25 01:53 | EKG ---
Test Reason : Blood Pressure : / mmHG Vent. Rate : 110 BPM Atrial Rate : 110 BPM P-R Int : 050 ms QRS Dur : 082 ms QT Int : 344 ms P-R-T Axes : 006 000 039 degrees QTc Int : 465 ms LIKELY ATRIAL FIBRILLATION BASELINE ARTIFACT LOW VOLTAGE QRS ABNORMAL ECG WHEN COMPARED WITH ECG OF 06-JAN-2017 13:52, NO SIGNIFICANT CHANGES WERE SEEN Confirmed by DAVID MARIE MD ([id number]) on 02/25/2017 1:53:20 AM Referred By: Confirmed By:DAVID MARIE MD
[2017-02-25] MEDS: ACETAMINOPHEN 325 MG TABLET (FP) PO PRN ×3 (03:38→20:10)
[2017-02-25] MEDS: oxyCODONE HCL 5 MG TABLET PO PRN ×3 (05:21→19:27)
[2017-02-25] MEDS: ALPRAZolam 0.25 MG TABLET PO SCH ×3 (06:22→21:40)
[2017-02-25] MEDS: METOPROLOL SUCCINATE 25 MG TAB.SR.24H (FP) PO SCH ×2 (09:36→21:40)
[2017-02-25] MEDS: CLOPIDOGREL BISULFATE 75 MG TABLET (FP) PO SCH (09:36)
[2017-02-25] MEDS: TAMSULOSIN HCL 0.4 MG CAP.ER.24H (FP) PO SCH (09:36)
[2017-02-25] MEDS: levETIRAcetam 250 MG TABLET (FP) PO SCH ×2 (09:36→21:40)
[2017-02-25] MEDS: PANTOPRAZOLE 40 MG TABLET (FP) PO SCH (09:36)
[2017-02-25] MEDS: FINASTERIDE 5 MG TABLET (FP) PO SCH (09:37)
[2017-02-25] MEDS: oxyCODONE HCL 10 MG SUSTAINED ACTING TABLET PO SCH ×2 (09:37→21:39)
[2017-02-25] MEDS: POLYETHYLENE GLYCOL 3350 119 GM BTL PO SCH (09:37)
[2017-02-25] MEDS: Methylnaltrexone Bromide 12 MG/0.6 ML KIT SQ SCH (09:37)
[2017-02-25] MEDS: LISINOPRIL 20 MG TABLET (FP) PO SCH (09:37)
--- NOTE | 2017-02-25 09:58 | PN ---
Progress Note, Physician Chief Complaint: As per RN had chest pain, patient denies and says he was startled out of sleep and felt anxious. TELE: AF, controlled. - Current Medication List Current Medications: Active Medications Acetaminophen (Tylenol -) 650 mg PO Q6H PRN PRN Reason: FEVER OR PAIN Last Admin: 02/25/17 03:38 Dose: 650 mg Alprazolam (Xanax -) 1 mg PO TID [facility] Last Admin: 02/25/17 06:22 Dose: 1 mg Atorvastatin Calcium (Lipitor -) 20 mg PO HS [facility] Last Admin: 02/24/17 22:05 Dose: 20 mg Clopidogrel Bisulfate (Plavix -) 75 mg PO DAILY [facility] Last Admin: 02/25/17 09:36 Dose: 75 mg Docusate Sodium (Colace -) 300 mg PO HS [facility] Last Admin: 02/24/17 22:09 Dose: Not Given Finasteride (Proscar -) 5 mg PO DAILY [facility] Last Admin: 02/25/17 09:37 Dose: 5 mg Furosemide (Lasix -) 20 mg PO Q2D@1000 [facility] Last Admin: 02/24/17 14:21 Dose: Not Given Hydrocortisone (Hytone 1% Cream -) 1 applic TP DAILY PRN PRN Reason: DRY SKIN Last Admin: 02/24/17 17:27 Dose: 1 applic Levetiracetam (Keppra -) 750 mg PO BID [facility] Last Admin: 02/25/17 09:36 Dose: 750 mg Lisinopril (Prinivil) 20 mg PO DAILY [facility] Last Admin: 02/25/17 09:37 Dose: 20 mg Methylnaltrexone [place] (Relistor -) 12 mg SQ DAILY [facility] Last Admin: 02/25/17 09:37 Dose: Not Given Metoprolol Succinate (Toprol Xl -) 12.5 mg PO BID [facility] Last Admin: 02/25/17 09:36 Dose: 12.5 mg Oxycodone HCl (Oxycontin -) 10 mg PO BID [facility] Last Admin: 02/25/17 09:37 Dose: 10 mg Oxycodone HCl (Roxicodone -) 30 mg PO Q6H PRN PRN Reason: PAIN Last Admin: 02/25/17 05:21 Dose: 30 mg Pantoprazole Sodium (Protonix -) 40 mg PO DAILY [facility] Last Admin: 02/25/17 09:36 Dose: 40 mg Polyethylene Glycol (Miralax (For Daily Use) -) 17 gm PO DAILY [facility] Last Admin: 02/25/17 09:37 Dose: Not Given Rivaroxaban (Xarelto -) 20 mg PO DAILY@1800 [facility] Last Admin: 02/24/17 17:19 Dose: 20 mg Tamsulosin HCl (Flomax -) 0.8 mg PO DAILY@0830 [facility] Last Admin: 02/25/17 09:36 Dose: 0.8 mg - Objective Vital Signs: Vital Signs Temperature 98.4 F 02/25/17 05:26 Pulse Rate 72 02/25/17 05:26 Respiratory Rate 20 02/25/17 05:26 Blood Pressure 114/81 02/25/17 05:26 O2 Sat by Pulse Oximetry (%) 96 02/24/17 22:00 Constitutional: Yes: No Distress Eyes: Yes: Conjunctiva Clear Cardiovascular: Yes: Pulse Irregular Respiratory: Yes: CTA Bilaterally Gastrointestinal: Yes: Soft, Abdomen, Obese Edema: Yes Edema: LLE: 1+, RLE: 1+ Neurological: Yes: Alert, Oriented Labs: CBC, BMP 02/21/17 11:50 02/21/17 12:30 INR, PTT INR 1.98 (0.82-1.09) H D 02/21/17 11:50 - ....Imaging EKG: Image Reviewed Problem List - Problems (1) Rapid palpitations Code(s): R00.2 - PALPITATIONS (2) Pre-syncope Code(s): R55 - SYNCOPE AND COLLAPSE (3) Dyspnea on exertion Code(s): R06.09 - OTHER FORMS OF DYSPNEA (4) Permanent atrial fibrillation Code(s): I48.2 - CHRONIC ATRIAL FIBRILLATION (5) CAD in [place] artery Code(s): I25.10 - ATHSCL HEART DISEASE OF [place] CORONARY ARTERY W/O ANG PCTRS (6) History of coronary artery stent placement Code(s): Z95.5 - PRESENCE OF CORONARY ANGIOPLASTY IMPLANT AND GRAFT (7) Morbid obesity Code(s): E66.01 - MORBID (SEVERE) OBESITY DUE TO EXCESS CALORIES (8) Hypertension Code(s): I10 - ESSENTIAL (PRIMARY) HYPERTENSION Qualifiers: Hypertension type: essential hypertension Qualified Code(s): I10 - Essential (primary) hypertension (9) Diabetes Code(s): E11.9 - TYPE 2 DIABETES MELLITUS WITHOUT COMPLICATIONS Qualifiers: Diabetes mellitus type: type 2 Diabetes mellitus complication status: with circulatory complication (10) H/O craniotomy Code(s): Z98.890 - OTHER SPECIFIED POSTPROCEDURAL STATES (11) Seizure Code(s): R56.9 - UNSPECIFIED CONVULSIONS (12) BPH (benign prostatic hypertrophy) Code(s): N40.0 - BENIGN PROSTATIC HYPERPLASIA WITHOUT LOWER URINRY TRACT SYMP Qualifiers: Lower urinary tract symptom detail: urinary frequency Assessment/Plan Assessment/Plan Palpitations -suspected due to AF w/ RVR; reported Metoprolol recently discontinued at [facility] after stent due to low BP -HR adequately controlled currently on Toprol 12.5mg bid and there has been no significant pauses on tele or prolonged symptomatic bradycardia and BP tolerating toprol thus far, would cont this dose -may need PPM if tachy-candice syndrome develops -echo showed grossly normal LV systolic function, mild MR, mild Tr, no pericardial effusion -cont Xarelto Ymj-esldgno-hjdjtqicopz BP today did show a significant drop with standing c/w orthostatic hypotension -low dose Lasix for now, can decrease to every other day -safety precautions -echo showed grossly normal LV systolic function, mild MR, mild Tr, no pericardial effusion Dyspnea on exertion -chronic and multifactorial: Obesity, variable LV dysfunction, now probable AF w / RVR. -echo showed grossly normal LV systolic function, mild MR, mild Tr, no pericardial effusion -CTA chest done showed no PE CAD -hx of multivessel PCI, last LAD at [facility] 12/2016. -Cont Plavix monotherapy (Also taking Xarelto for AF). Hypertension -as above DISPO: Do not suspect he had anginal chest pain last night, sounds more like a startled anxiety response, will check one TnI and if negative would be acceptable for discharge
[2017-02-25 12:05] LABS: CPK 36 IU/L (39-308); TROPONIN I < 0.02 ng/ml (0.00-0.05)
--- NOTE | 2017-02-25 15:06 | CONSULT ---
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 obrien is 61 yo m w multiple medical comobidities including chronic pain syndrome and anxiety for shich he has been prescribed opioids, short and long acting and benzodiazepines for many years. Patient reports a withdrawal syndrome if he does nto take his medications but gives no history of harmful use , mis use, overuse, losing prescriptions, running out of medications, addiction [facility] drug treatment in past. He denies currenat alcohol use. He is comfortable on medications as prescribed at [facility] time in hospital He denies a family history of substance use disorders or alcoholism Efe Obrien, 1955 Search Date: 02/25/2017 02:55:59 PM The Drug Utilization Report below displays all of the controlled substance prescriptions, if any, that your patient has filled in the last twelve months. The information displayed on this report is compiled from pharmacy submissions to the Department, and accurately reflects the information as submitted by the pharmacies. This report was requested by: Eze Naik | Reference #: [id number] Others' Prescriptions Patient Name: Efe Obrien Date: 1955 Address: [address] [place] [address] Sex: Male Rx Written Rx Dispensed Drug Quantity Days Supply Prescriber Name 02/10/2017 02/12/2017 oxycontin 10 mg tablet 60 30 Mayra Fortune NP 02/04/2017 02/11/2017 alprazolam 1 mg tablet 30 10 Dixie Solo NP 02/10/2017 02/10/2017 oxycodone hcl 30 mg tablet 90 30 Mayra Fortune NP 12/11/2016 12/11/2016 oxycodone hcl 30 mg tablet 100 25 Sean Chandler 12/06/2016 12/07/2016 oxycodone-acetaminophen 10-325 mg tab 100 25 Sean Chandler 12/06/2016 12/07/2016 alprazolam 1 mg tablet 90 30 Sean Chandler 11/08/2016 11/08/2016 oxycodone hcl 30 mg tablet 120 30 Sean Chandler 11/08/2016 11/08/2016 alprazolam 1 mg tablet 60 30 Sean Chandler 10/10/2016 10/10/2016 oxycodone hcl 30 mg tablet 120 30 Sean Chandler 10/10/2016 10/10/2016 alprazolam 1 mg tablet 60 30 Sean Chandler 09/11/2016 09/11/2016 alprazolam 1 mg tablet 60 30 Sean Chandler 09/11/2016 09/11/2016 oxycodone hcl 30 mg tablet 120 30 Sean Chandler 08/14/2016 08/14/2016 oxycodone hcl 30 mg tablet 90 30 Sean Chandler 07/18/2016 08/07/2016 alprazolam 1 mg tablet 90 30 Sean Chandler 07/18/2016 07/19/2016 oxycodone hcl 30 mg tablet 90 30 Sena Chandler 04/10/2016 04/10/2016 oxycodone hcl 30 mg tablet 90 30 Sean Chandler 04/10/2016 04/10/2016 alprazolam 1 mg tablet 90 30 Sean Chandler 03/12/2016 03/12/2016 oxycodone hcl 30 mg tablet 90 30 Mayra Fortune NP 03/12/2016 03/12/2016 alprazolam 1 mg tablet 90 30 Sean Chandler Patient Name: Efe Obrien Date: 1955 Address: [address] [place] [address] Sex: Male Rx Written Rx Dispensed Drug Quantity Days Supply Prescriber Name 02/04/2017 02/04/2017 oxycodone hcl 30 mg tablet 40 10 Dixie Solo NP 01/27/2017 01/27/2017 alprazolam 1 mg tablet 30 10 MD Preciado George 01/27/2017 01/27/2017 oxycodone hcl 30 mg tablet 30 7 MD Preciado George 01/16/2017 01/16/2017 oxycodone hcl 30 mg tablet 40 10 MD Preciado George 01/16/2017 01/16/2017 alprazolam 1 mg tablet 40 13 MD Preciado George 07/04/2016 07/05/2016 alprazolam 1 mg tablet 60 20 Dixie Solo 07/04/2016 07/05/2016 oxycodone hcl 20 mg tablet 30 8 Dixie Solo 07/03/2016 07/03/2016 alprazolam 1 mg tablet 90 30 Dixie Solo NP 06/29/2016 06/29/2016 oxycodone hcl 20 mg tablet 30 7 MD Ilana, Roe 06/29/2016 06/29/2016 promethazine-codeine syrup 150ml 3 MD Ilana, Roe 06/25/2016 06/25/2016 alprazolam 1 mg tablet 20 6 GermaniaOliverDixiebrut SHELDON 06/20/2016 06/20/2016 oxycodone hcl 20 mg tablet 30 7 Dixie Solo NP 06/19/2016 06/19/2016 alprazolam 1 mg tablet 20 6 Germania Dixieburt SHE[place] 06/19/2016 06/19/2016 promethazine-codeine syrup 240ml 5 Germania Dixieburt SHE[place]ON 06/10/2016 06/10/2016 oxycodone hcl 20 mg tablet 40 10 MD Ilana, Roe 06/10/2016 06/10/2016 alprazolam 1 mg tablet 30 10 MD Ilana, Roe 06/10/2016 06/10/2016 promethazine-codeine syrup 240ml 8 MD Preciado George 06/04/2016 06/04/2016 oxycodone hcl 20 mg tablet 30 7 Dixie Solo NP 05/30/2016 05/30/2016 alprazolam 1 mg tablet 30 10 Dixie Solo NP 05/30/2016 05/30/2016 promethazine-codeine syrup 240ml 5 Dixie Solo NP 05/10/2016 05/11/2016 oxycodone hcl 20 mg tablet 60 15 MD Ilana, Roe 05/09/2016 05/09/2016 alprazolam 1 mg tablet 30 10 MD Ilana, Roe 05/09/2016 05/09/2016 oxycodone hcl 20 mg tablet 30 10 MD Preciado George - History Source History Provided By: Patient, Medical Record Limitations to Obtaining History: No Limitations - Alcohol/Substance Use Hx Alcohol Use: No Hx Substance Use: No Hx Substance Use Treatment: No - Past Medical History 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 (craniotomy s/p evacuation [facility] on keppra ) Cardio/Vascular: Yes: AFIB, CAD (prior PCI, last 12/2016 at [place], LAD [facility]), CHF (chronic primarily diastolic), HTN, Other Pulmonary: Yes: COPD Gastrointestinal: Yes: Other (6 years earlier -negative EGD and colonoscopy) Hepatobiliary: Yes: Cirrhosis, Hepatitis C, Other (patient does not admit to cirrhosis (normal liver on ct scan does have splenomegaly)) Renal/: Yes: BPH, Renal Calculi Psych: Yes: Anxiety, Depression Musculoskeletal: Yes: Chronic low back pain, Osteoarthritis Endocrine: Yes: Diabetes Mellitus - Past Surgical History Past Surgical History: Yes: Colonoscopy, Upper Endoscopy - Significant Medical Findings: 61 yo m admitted iwth afib, lying comfortably in bed on current medications prescribed as per therapeutic recreation specialist, no signs of withdrawal no indications of addiction or substance misuse or pseudo addiction noted. Assessment Plan - Diagnosis (1) Chronic pain Status: Acute (2) Morbid obesity Status: Acute (3) Palpitations Status: Acute (4) Permanent atrial fibrillation Status: Acute (5) Anxiety Status: Acute (6) Anxiety disorder Status: Acute Qualifiers: Anxiety disorder type: generalized anxiety disorder Qualified Code(s): F41.1 - Generalized anxiety disorder (7) Atrial fibrillation Status: Acute Qualifiers: Atrial fibrillation type: chronic Qualified Code(s): I48.2 - Chronic atrial fibrillation (8) BPH (benign prostatic hypertrophy) Status: Acute Qualifiers: Lower urinary tract symptom detail: urinary frequency (9) CAD Status: Acute (10) CHF (congestive heart failure) Status: Acute (11) COPD (chronic obstructive pulmonary disease) Status: Acute Qualifiers: COPD type: unspecified COPD Qualified Code(s): J44.9 - Chronic obstructive pulmonary disease, unspecified - Plan Plan: Chart reviewed, imaging reviewed, labs reviewed, medications reviewed, patient examined and history taken. Patient advised of risks of taking medications both opioid and benzodiazepiens even as prescribed in view of multiple medical comorbidities and risk of overdose and . Patient advised of risk of stopping medications suddenly and precipitating a pain crisis or seizures and from withdrawal from medications. advised to lose weight and exercise and use the minimum effective dose of controlled substances. detoxification and substancae abuse treatment not indicated at this time. Eze Naik MD [phone] - Medication Detox Regimen/Protocol: Not Applicable"
--- NOTE | 2017-02-25 16:40 | PN ---
Progress Note (short form) - Note Progress Note: discharge stopped because of increasing palpitations will need cardiac intervention likely CORE [facility]TER will discuss with cardiology and then snf for physical therapy Problem List - Problems (1) CAD in [place] artery Code(s): I25.10 - ATHSCL HEART DISEASE OF [place] CORONARY ARTERY W/O ANG PCTRS (2) Diabetes Code(s): E11.9 - TYPE 2 DIABETES MELLITUS WITHOUT COMPLICATIONS Qualifiers: Diabetes mellitus type: type 2 Diabetes mellitus complication status: with circulatory complication (3) Dyspnea on exertion Code(s): R06.09 - OTHER FORMS OF DYSPNEA (4) H/O craniotomy Code(s): Z98.890 - OTHER SPECIFIED POSTPROCEDURAL STATES (5) History of coronary artery stent placement Code(s): Z95.5 - PRESENCE OF CORONARY ANGIOPLASTY IMPLANT AND GRAFT (6) Hypertension Code(s): I10 - ESSENTIAL (PRIMARY) HYPERTENSION Qualifiers: Hypertension type: essential hypertension Qualified Code(s): I10 - Essential (primary) hypertension (7) Morbid obesity Code(s): E66.01 - MORBID (SEVERE) OBESITY DUE TO EXCESS CALORIES (8) Palpitations Code(s): R00.2 - PALPITATIONS (9) Seizure Code(s): R56.9 - UNSPECIFIED CONVULSIONS (10) Acute on chronic diastolic (congestive) heart failure Code(s): I50.33 - ACUTE ON CHRONIC DIASTOLIC (CONGESTIVE) HEART FAILURE (11) Anxiety Code(s): F41.9 - ANXIETY DISORDER, UNSPECIFIED (12) Atrial fibrillation Code(s): I48.91 - UNSPECIFIED ATRIAL FIBRILLATION Qualifiers: Atrial fibrillation type: chronic Qualified Code(s): I48.2 - Chronic atrial fibrillation
[2017-02-25] MEDS: RIVAROXABAN 20 MG TABLET PO SCH (18:08)
[2017-02-25] MEDS: ATORVASTATIN CA 20 MG TABLET (FP) PO SCH (21:40)
[2017-02-25] MEDS: DOCUSATE SODIUM 100 MG CAPSULE (FP) PO SCH (22:29)
[2017-02-26] MEDS: oxyCODONE HCL 5 MG TABLET PO PRN ×2 (04:01→10:28)
[2017-02-26] MEDS: ALPRAZolam 0.25 MG TABLET PO SCH (06:12)
--- NOTE | 2017-02-26 08:47 | PN ---
Progress Note, Physician Chief Complaint: Tachy in AF with ambulation into the 140s yesterday History of Present Illness: Multiple pauses 2-3 seconds on tele Afebrile - Current Medication List Current Medications: Active Medications Acetaminophen (Tylenol -) 650 mg PO Q6H PRN PRN Reason: FEVER OR PAIN Last Admin: 02/25/17 20:10 Dose: 650 mg Alprazolam (Xanax -) 1 mg PO TID [facility] Last Admin: 02/26/17 06:12 Dose: 1 mg Atorvastatin Calcium (Lipitor -) 20 mg PO HS [facility] Last Admin: 02/25/17 21:40 Dose: 20 mg Clopidogrel Bisulfate (Plavix -) 75 mg PO DAILY [facility] Last Admin: 02/25/17 09:36 Dose: 75 mg Docusate Sodium (Colace -) 300 mg PO HS [facility] Last Admin: 02/25/17 22:29 Dose: Not Given Finasteride (Proscar -) 5 mg PO DAILY [facility] Last Admin: 02/25/17 09:37 Dose: 5 mg Furosemide (Lasix -) 20 mg PO Q2D@1000 [facility] Last Admin: 02/24/17 14:21 Dose: Not Given Hydrocortisone (Hytone 1% Cream -) 1 applic TP DAILY PRN PRN Reason: DRY SKIN Last Admin: 02/24/17 17:27 Dose: 1 applic Levetiracetam (Keppra -) 750 mg PO BID [facility] Last Admin: 02/25/17 21:40 Dose: 750 mg Lisinopril (Prinivil) 20 mg PO DAILY [facility] Last Admin: 02/25/17 09:37 Dose: 20 mg Methylnaltrexone Lilly (Relistor -) 12 mg SQ DAILY [facility] Last Admin: 02/25/17 09:37 Dose: Not Given Metoprolol Succinate (Toprol Xl -) 12.5 mg PO BID [facility] Last Admin: 02/25/17 21:40 Dose: 12.5 mg Oxycodone HCl (Oxycontin -) 10 mg PO BID [facility] Last Admin: 02/25/17 21:39 Dose: 10 mg Oxycodone HCl (Roxicodone -) 30 mg PO Q6H PRN PRN Reason: PAIN Last Admin: 02/26/17 04:01 Dose: 30 mg Pantoprazole Sodium (Protonix -) 40 mg PO DAILY [facility] Last Admin: 02/25/17 09:36 Dose: 40 mg Polyethylene Glycol (Miralax (For Daily Use) -) 17 gm PO DAILY [facility] Last Admin: 02/25/17 09:37 Dose: Not Given Rivaroxaban (Xarelto -) 20 mg PO DAILY@1800 [facility] Last Admin: 02/25/17 18:08 Dose: 20 mg Tamsulosin HCl (Flomax -) 0.8 mg PO DAILY@0830 [facility] Last Admin: 02/25/17 09:36 Dose: 0.8 mg - Objective Vital Signs: Vital Signs Temperature 97.7 F 02/26/17 05:51 Pulse Rate 65 02/26/17 05:51 Respiratory Rate 20 02/26/17 05:51 Blood Pressure 104/72 02/26/17 05:51 O2 Sat by Pulse Oximetry (%) 97 02/25/17 22:00 Constitutional: Yes: Calm Eyes: Yes: Conjunctiva Clear Respiratory: Yes: CTA Bilaterally Gastrointestinal: Yes: Soft, Abdomen, Obese Edema: Yes Neurological: Yes: Alert, Oriented Labs: CBC, BMP 02/21/17 11:50 02/21/17 12:30 INR, PTT INR 1.98 (0.82-1.09) H D 02/21/17 11:50 - ....Imaging EKG: Image Reviewed Problem List - Problems (1) Rapid palpitations Code(s): R00.2 - PALPITATIONS (2) Pre-syncope Code(s): R55 - SYNCOPE AND COLLAPSE (3) Dyspnea on exertion Code(s): R06.09 - OTHER FORMS OF DYSPNEA (4) Permanent atrial fibrillation Code(s): I48.2 - CHRONIC ATRIAL FIBRILLATION (5) CAD in [place] artery Code(s): I25.10 - ATHSCL HEART DISEASE OF [place] CORONARY ARTERY W/O ANG PCTRS (6) History of coronary artery stent placement Code(s): Z95.5 - PRESENCE OF CORONARY ANGIOPLASTY IMPLANT AND GRAFT (7) Morbid obesity Code(s): E66.01 - MORBID (SEVERE) OBESITY DUE TO EXCESS CALORIES (8) Hypertension Code(s): I10 - ESSENTIAL (PRIMARY) HYPERTENSION Qualifiers: Hypertension type: essential hypertension Qualified Code(s): I10 - Essential (primary) hypertension (9) Diabetes Code(s): E11.9 - TYPE 2 DIABETES MELLITUS WITHOUT COMPLICATIONS Qualifiers: Diabetes mellitus type: type 2 Diabetes mellitus complication status: with circulatory complication (10) H/O craniotomy Code(s): Z98.890 - OTHER SPECIFIED POSTPROCEDURAL STATES (11) Seizure Code(s): R56.9 - UNSPECIFIED CONVULSIONS (12) BPH (benign prostatic hypertrophy) Code(s): N40.0 - BENIGN PROSTATIC HYPERPLASIA WITHOUT LOWER URINRY TRACT SYMP Qualifiers: Lower urinary tract symptom detail: urinary frequency Assessment/Plan IMP: AF, tachy candice syndrome CAD s/p PCI Morbid obesity REC: Periods of bradycardia limit ability to titrate AV magdi agents. Needs PPM for tachy candice syndrome. Possible AF ablation? Will transfer to [facility] for EP eval and PPM
[2017-02-26] MEDS ORDERED: PT OWN MED DRAWER 7, Y5N ONE (10:15)
[2017-02-26] MEDS: Methylnaltrexone Bromide 12 MG/0.6 ML KIT SQ SCH (10:21)
[2017-02-26] MEDS: levETIRAcetam 250 MG TABLET (FP) PO SCH (10:21)
[2017-02-26] MEDS: METOPROLOL SUCCINATE 25 MG TAB.SR.24H (FP) PO SCH (10:25)
[2017-02-26] MEDS: PANTOPRAZOLE 40 MG TABLET (FP) PO SCH (10:25)
[2017-02-26] MEDS: CLOPIDOGREL BISULFATE 75 MG TABLET (FP) PO SCH (10:25)
[2017-02-26] MEDS: ACETAMINOPHEN 325 MG TABLET (FP) PO PRN (10:28)
[2017-02-26] MEDS: FUROSEMIDE 20 MG TABLET (FP) PO SCH (10:30)
[2017-02-26] MEDS: TAMSULOSIN HCL 0.4 MG CAP.ER.24H (FP) PO SCH (10:30)
[2017-02-26] MEDS: LISINOPRIL 20 MG TABLET (FP) PO SCH (10:30)
[2017-02-26] MEDS: POLYETHYLENE GLYCOL 3350 119 GM BTL PO SCH (10:30)
[2017-02-26] MEDS: FINASTERIDE 5 MG TABLET (FP) PO SCH (10:30)
[2017-02-26] MEDS: oxyCODONE HCL 10 MG SUSTAINED ACTING TABLET PO SCH (10:30)
[2017-02-26 11:34] VITALS: BP 98/57; PULSE 70; TEMP 97.9
--- NOTE | 2017-02-26 11:35 | DS ---
Physical Examination Vital Signs: Vital Signs Temperature 97.9 F 02/26/17 09:00 Pulse Rate 70 02/26/17 09:00 Respiratory Rate 20 02/26/17 11:32 Blood Pressure 98/57 02/26/17 09:00 O2 Sat by Pulse Oximetry (%) 97 02/26/17 11:32 Findings/Remarks: TRANSFERRING TO [facility] FOR OUTCOMES ANALYST Constitutional: Yes: Mild Distress Cardiovascular: Yes: Pulse Irregular Labs: CBC, BMP 02/21/17 11:50 02/21/17 12:30 Discharge Summary Reason For Visit: SOB,RAPID PALPITATIONS Current Active Problems CAD in [place] artery (Acute) Chronic pain (Acute) Diabetes (Acute) Dyspnea on exertion (Acute) H/O craniotomy (Acute) History of coronary artery stent placement (Acute) Hypertension (Acute) Morbid obesity (Acute) Palpitations (Acute) Permanent atrial fibrillation (Acute) Pre-syncope (Acute) Rapid palpitations (Acute) Seizure (Acute) Hospital Course: TRANSFERRING TO [facility] FOR OUTCOMES ANALYST IRREULAR RYTHM TACHYCARDIA - Instructions Diet, Activity, Other Instructions: SEE CARDIOLOGY OUTPATIENT DR RUSSELL IN 1-2 WEEKS Referrals: Akash Russell MD [Primary Care Provider] - Disposition: TRANSFER ACUTE CARE/OTHER HOSP - Home Medications Comprehensive Discharge Medication List: Ambulatory Orders Alprazolam [Xanax] 1 mg PO TID 03/28/13 Mag Hydrox/Al Hydrox/Simeth [Mylanta Oral Suspension -] 30 ml PO Q6H PRN #0 cup 08/20/14 Metoprolol Succinate [Toprol XL -] 12.5 mg PO BID 05/21/15 Oxycodone HCl 30 mg PO Q6H PRN MDD 60 05/21/15 Tamsulosin HCl [Flomax] 0.4 mg PO DAILY 12/26/15 Lisinopril [Zestril] 25 mg PO DAILY 04/24/16 Acetaminophen [Tylenol .Regular Strength -] 650 mg PO Q6H PRN #0 tablet Atorvastatin Ca [Lipitor] 20 mg PO HS tablet 01/09/17 Docusate Sodium [Colace -] 300 mg PO HS cap 01/09/17 Finasteride [Proscar -] 5 mg PO DAILY tablet 01/09/17 Furosemide [Lasix -] 40 mg PO DAILY tablet 01/09/17 Hydrocortisone 2.5% Lotion [Hytone 2.5% Lotion -] 1 applic TP BID PRN #0 bottle 01/09/17 Methylnaltrexone [place] [Relistor -] 12 mg SQ DAILY kit 01/09/17 Metoprolol Succinate [Toprol XL -] 12.5 mg PO DAILY tab 01/09/17 Pantoprazole Sodium [Protonix -] 40 mg PO DAILY tab 01/09/17 Polyethylene Glycol 3350 [Miralax 119 gm Btl -] 17 gm PO DAILY bottle 01/09/17 Clopidogrel Bisulfate [Plavix -] 75 mg PO DAILY 02/21/17 Levetiracetam [Keppra -] 750 mg PO BID 02/21/17 Rivaroxaban [Xarelto -] 10 mg PO DAILY 02/21/17 Oxycodone Sr [Oxycontin] 10 mg PO BID 02/24/17
== END 2017-02-26 13:18 | disposition short-term general hospital (02) | DRG 309 ==
LOC: JER 11:18 → JERBED 15:59 → J4W 20:35 → OBSVTOIN 02-24 17:26
PROVIDERS: ADMIT Family Medicine; ATTEND Family Medicine
DX: I48.2 Chronic atrial fibrillation (principal); Z68.41 Body mass index [BMI] 40.0-44.9, adult; I50.32 Chronic diastolic (congestive) heart failure; E66.01 Morbid (severe) obesity due to excess calories; F41.9 Anxiety disorder, unspecified; I49.5 Sick sinus syndrome; E11.9 Type 2 diabetes mellitus without complications; E78.5 Hyperlipidemia, unspecified; I11.0 Hypertensive heart disease with heart failure; I25.10 Atherosclerotic heart disease of native coronary artery without angina pectoris; Z79.01 Long term (current) use of anticoagulants; Z87.891 Personal history of nicotine dependence; R55 Syncope and collapse; Z95.5 Presence of coronary angioplasty implant and graft; N40.0 Benign prostatic hyperplasia without lower urinary tract symptoms; G89.29 Other chronic pain; J44.9 Chronic obstructive pulmonary disease, unspecified
CPT/HCPCS: 36415; 71010-TC; 71275-TC; 80053; 80061; 81003; 81015; 82550; 83036; 83721; 83880; 84484; 85025; 85610; 93005; 93010; 93306-TC; 97116-GP; 97161-GP; 99285-25; G0378

== ENCOUNTER 2017-07-20 17:16 | Inpatient (IN) | payer OTHER ==
[2017-07-20] MEDS ORDERED: KETOROLAC TROMETHAMINE 30 MG/1 ML VIAL IVPUSH ONE (17:59)
[2017-07-20] MEDS ORDERED: morphine CARPU-JECT 4 MG/1 ML DISP.SYRIN IVPUSH ONE (17:59)
[2017-07-20] MEDS ORDERED: SODIUM CHLORIDE 1,000 ML IV STA (17:59)
[2017-07-20] MEDS ORDERED: morphine SULFATE 4 MG/ML VIAL ONE ×2 (18:08→21:08)
[2017-07-20] MEDS ORDERED: KETOROLAC TROMETHAMINE 15 MG/ML VIAL ONE (18:09)
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
[2017-07-20 18:28] LABS: BASO % 0.3 % (0-2.0); EOS % 0.8 % (0-4.5); HEMOGLOBIN 13.8 GM/dL (11.7-16.9); LYMPH % 13.3 % (8-40); MCH 32.3 pg (25.7-33.7); MCHC 35.3 g/dl (32.0-35.9); MEAN CELL VOLUME 91.3 fl (80-96); MEAN PLT VOLUME 7.4 fl (7.5-11.1); MONO % 5.9 % (3.8-10.2); NEUT % 79.7 % (42.8-82.8); PLATELET COUNT 168 K/MM3 (134-434); RBC 4.27 M/mm3 (4.00-5.60); RDW 13.1 % (11.9-15.9)
[2017-07-20 18:42] LABS: INR 2.8 (0.82-1.09); PROTHROMBIN TIME (PATIENT) 31.6 SEC (9.7-13.0)
[2017-07-20 18:45] LABS: ACTIVATED PTT 39.4 SECONDS (26.9-34.4)
[2017-07-20 18:53] LABS: ALBUMIN 3.4 g/dl (3.4-5.0); ANION GAP 9 (8-16); BILIRUBIN,TOTAL 0.7 mg/dL (0.2-1.0); BLOOD UREA NITROGEN 22 mg/dL (7-18); CALCIUM 8.5 mg/dL (8.5-10.1); CHLORIDE 102 mmol/L (98-107); CO2 27 mmol/L (21-32); CREATININE 1.5 mg/dL (0.7-1.3); LIPASE 89 U/L (73-393); POTASSIUM 4.6 mmol/L (3.5-5.1); SGOT/AST 33 U/L (15-37); SGPT/ALT 43 U/L (12-78); SODIUM 138 mmol/L (136-145); TOT PROT 7.3 g/dl (6.4-8.2)
[2017-07-20 18:54] LABS: ALK PHOS 117 U/L (45-117)
[2017-07-20 19:09] LABS: GLUCOSE,RANDOM 307 mg/dL (74-106)
--- NOTE | 2017-07-20 19:26 | PDOC ---
*Physical Exam - Vital Signs Last Vital Signs Temp Pulse Resp BP Pulse Ox 98.8 F 97 H 20 139/96 98 07/20/17 17:25 07/20/17 17:25 07/20/17 17:25 07/20/17 17:25 07/20/17 17:25 ED Treatment Course - LABORATORY CBC & Chemistry Diagram: 07/20/17 18:20 07/20/17 18:20 - ADDITIONAL ORDERS Additional order review: Laboratory Results 07/20/17 07/20/17 07/20/17 18:20 18:20 18:20 PT with INR 31.60 H INR 2.80 H D PTT (Actin FS) 39.4 H Sodium 138 Potassium 4.6 Chloride 102 Carbon Dioxide 27 Anion Gap 9 BUN 22 H Creatinine 1.5 H Creat Clearance w eGFR 47.42 Random Glucose 307 H* D Lactic Acid 3.5 H* Calcium 8.5 Total Bilirubin 0.7 D AST 33 ALT 43 D Alkaline Phosphatase 117 D Creatine Kinase Troponin I Total Protein 7.3 Albumin 3.4 Lipase 89 07/20/17 18:20 PT with INR INR PTT (Actin FS) Sodium Potassium Chloride Carbon Dioxide Anion Gap BUN Creatinine Creat Clearance w eGFR Random Glucose Lactic Acid Calcium Total Bilirubin AST ALT Alkaline Phosphatase Creatine Kinase 69 Troponin I < 0.02 Total Protein Albumin Lipase 07/20/17 18:20 RBC 4.27 MCV 91.3 MCHC 35.3 RDW 13.1 MPV 7.4 L Neutrophils % 79.7 D Lymphocytes % 13.3 D Monocytes % 5.9 Eosinophils % 0.8 Basophils % 0.3 - RADIOLOGY Radiology Studies Ordered: Category Date Time Status SPIRAL- RENAL-STONE CT [CT] Stat CT Scan 07/20/17 19:22 Ordered - Medications Given in the ED: ED Medications Discontinued Medications Generic Name Dose Route Start Last Admin Trade Name Freq PRN Reason Stop Dose Admin Sodium Chloride 1,000 mls @ 1,000 mls/hr 07/20/17 17:59 07/20/17 18:10 Normal Saline - IV 07/20/17 18:58 1,000 mls/hr ASDIR STA Administration Ketorolac Tromethamine 15 mg 07/20/17 17:59 07/20/17 18:13 Toradol Injection - IVPUSH 07/20/17 18:00 15 mg ONCE ONE Administration Morphine Sulfate 4 mg 07/20/17 17:59 07/20/17 18:37 Morphine Injection - IVPUSH 07/20/17 18:00 4 mg ONCE ONE Administration Medical Decision Making - Medical Decision Making 07/20/17 19:23 I received signout on patient. Labs are back and pt has elevated BUN and Cr. I changed his IV contrast CT Abd Pelvis to a spiral CT. Pt has uncontrolled blood sugar. 07/20/17 19:24 Pt has a QBC count of 11; no left shift. He has an elevated lactic acid, we will repeat the test. Pt has INR of 2.8 07/20/17 20:56 Pt has a 1.1cm stone in the left ureter; obstruction with pyelonephritis. He will be admitted to the hospitalist, who is covering for PMD Drew. We are still awaiting UA and urine culture and then I will start the patient on Ceftriaxone. 07/20/17 22:01 Patient Name: ARSENIO KHAN THIS IS A PRELIMINARY REPORT FROM [facility] IMAGES: [id number] EXAM DATE AND TIME: 2017-07-20 20:32:40 EXAM: CT Abdomen and Pelvis Without Intravenous Contrast CLINICAL HISTORY: luq and left flank pain TECHNIQUE: Axial computed tomography images of the abdomen and pelvis without intravenous contrast. This CT exam was performed using one or more of the following dose reduction techniques: Automated exposure control, Adjustment of the mA and/or kV according to patient size, Use of iterative reconstruction technique. COMPARISON: No relevant prior studies available. FINDINGS: LIMITATIONS: The examination is mildly limited secondary to positioning with the anterior LEFT CONFIDENTIALITY NOTICE: This information is intended only for the use of the recipient(s) named above. If you are not the intended recipient, or a person responsible for delivering it to the intended recipient, you are hereby notified that any disclosure, copying, distribution or use of any of the information contained in or attached to this transmission is STRICTLY PROHIBITED. If you have received this transmission in error, please immediately notify Imaging Demi Chef and destroy the original transmission and its attachments without saving them in any manner [address] [place] [address] [employer] [facility] [address] [place] [address] Phone: [phone]) Fax: Email: [email or web address] Patient Information: : 1955 Name: BILL CESAR Sex: M Study Description: CT ABDOMEN AND PELVIS Modality: CT Location: [facility] Referring Physician: SHUKRI CUELLAR abdominal wall and subcutaneous soft tissues NOT included. LUNG BASES: There are minimal dependent changes present in the lung bases.This is most prominent in the LEFT lung base. ABDOMEN: LIVER: There is NO evidence of a liver mass or abnormal enlargement. GALLBLADDER AND BILE DUCTS: NO gallbladder wall thickening or pericholecystic fluid. There are NO calcified/visualized gallstones. No ductal dilation. PANCREAS: The visualized portions of the pancreas and pancreatic area are unremarkable. No ductal dilation. SPLEEN: The spleen is mildly enlarged. No splenic masses or significant enlargement. ADRENALS: The RIGHT and LEFT adrenal glands demonstrate NO masses or abnormal enlargement. KIDNEYS AND URETERS: RIGHT KIDNEY: The RIGHT kidney demonstrates NO hydronephrosis, stones or masses. The RIGHT ureter demonstrates NO stones. LEFT KIDNEY: [place] nonobstructing renal stone. This measures 9.7 millimeters. There is moderate perinephric stranding present. Mild/moderate dilatation of the renal pelvis/ collecting system. There is a stone in the proximal LEFT ureter. This measures approximately 1 cm. This is at the ureteral pelvic junction. STOMACH AND BOWEL: STOMACH: The stomach is nondistended with thickened appearing osei. NO other evidence to suggest inflammatory changes. This likely represents pseudo-thickening secondary to incompletely distended stomach. SMALL BOWEL: The small bowel demonstrates NO significant distention. There is NO significant wall/ mucosal thickening is demonstrated. COLON:The colon demonstrates NO evidence of diverticulitis or colitis. Partially fecal filled colon. NO significant distention. CONFIDENTIALITY NOTICE: This information is intended only for the use of the recipient(s) named above. If you are not the intended recipient, or a person responsible for delivering it to the intended recipient, you are hereby notified that any disclosure, copying, distribution or use of any of the information contained in or attached to this transmission is STRICTLY PROHIBITED. If you have received this transmission in error, please immediately notify Imaging Demi Chef and destroy the original transmission and its attachments without saving them in any manner [address] [facility] [address] [place] [address] Phone: [phone]) Fax: Email: [email or web address] Patient Information: : 1955 Name: BILL CESAR Sex: M Study Description: CT ABDOMEN AND PELVIS Modality: CT Location: [facility] Referring Physician: SHUKRI CUELLAR PELVIS: APPENDIX: The appendix is not identified with certainty. BLADDER: The bladder demonstrates NO significant wall thickening or stones. REPRODUCTIVE: NO pelvic masses or cysts >/=2cm.. ABDOMEN and PELVIS: INTRAPERITONEAL SPACE: NO acute changes are demonstrated. No free air. No significant fluid collection. BONES/JOINTS: Marked degenerative changes are present in the facets. This is more prominent inferiorly. There is grade 1 retrolisthesis present at L3-4. This is likely degenerative. Follow-up flexion-extension study should be considered if indicated to evaluate for abnormal motion. There is moderate degenerative disc space narrowing inferiorly. Lucencies are present consistent with vacuum changes. Moderate degenerative changes are present in the vertebral endplates with osteophytes. This is more prominent superiorly. No acute fracture. No dislocation. SOFT TISSUES: See above. VASCULATURE: PORTAL VEINS: The portal vein is borderline enlarged. Normal maximum diameter is typically 15 mm. The current maximum diameter is 1.5 centimeters. Minimal varices and/or collateral vessels are present. AORTA: The aorta demonstrates NO evidence of aneurysm or rupture. Minimal atherosclerotic vascular calcifications are present. LYMPH NODES: NO acute changes are demonstrated. No enlarged lymph nodes. TUBES, LINES AND DEVICES: Cardiac leads are present, incompletely evaluated on this study. IMPRESSION: 1. The examination is mildly limited secondary to positioning with the anterior LEFT abdominal wall and subcutaneous soft tissues NOT included. 2. LEFT hydronephrosis secondary to a proximally obstructing ureteral stone as noted. Please refer to the body of the report for a complete discussion. 3. The spleen is mildly enlarged. This is a nonspecific finding.This may be related to portal hypertension. 4. Borderline enlargement of the portal vein. Please correlate for LFTs, cirrhotic changes and portal hypertension. CPT: 96592 CT Scan of the abdomen and pelvis without contrast. THIS DOCUMENT HAS BEEN ELECTRONICALLY SIGNED *DC/Admit/Observation/Transfer Diagnosis at time of Disposition: Diabetes, Morbid obesity with BMI of 40.0-44.9, adult, Hydronephrosis with renal and ureteral calculous obstruction Atrial fibrillation Qualifiers: Atrial fibrillation type: chronic Qualified Code(s): I48.2 - Chronic atrial fibrillation - Discharge Dispostion Condition at time of disposition: Guarded Decision to Admit order: Yes - Referrals - Patient Instructions - Post Discharge Activity
[2017-07-20] MEDS ORDERED: CEFTRIAXONE 1 GM in DEXTROSE 5%-WATER - 50 ML IVPB ONE (21:03)
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
[2017-07-20] MEDS ORDERED: morphine CARPU-JECT 2 MG/1 ML DISP.SYRIN IVPUSH ONE (21:08)
[2017-07-20] MEDS ORDERED: CEFTRIAXONE 1 GM/50 ML BAG ONE (21:16)
[2017-07-20] MEDS ORDERED: MAG HYDROX/AL HYDROX/SIMETH 30 ML UNIT-DOSE CUP ONE (21:40)
[2017-07-20] MEDS ORDERED: ACETAMINOPHEN 325 MG TABLET (FP) ONE (21:51)
[2017-07-20] MEDS ORDERED: SODIUM CHLORIDE 1,000 ML IV SCH (22:00)
[2017-07-20] MEDS ORDERED: TAMSULOSIN HCL 0.4 MG CAP.ER.24H (FP) PO ONE (22:01)
[2017-07-20] MEDS ORDERED: HEPARIN NA (PORCINE) 5,000 UNITS/ML 1ML VIAL IVPUSH PRN ×2 (22:02)
[2017-07-20] MEDS: ACETAMINOPHEN 325 MG TABLET (FP) PO PRN (22:12)
[2017-07-20 22:13] LABS: URINE APPEARANCE CLEAR; URINE BILIRUBIN NEGATIVE (<2.0 mg/dL); URINE COLOR YELLOW; URINE GLUCOSE (UA) 3+ (NEGATIVE); URINE KETONE NEGATIVE (NEGATIVE); URINE LEUK ESTERASE NEGATIVE (NEGATIVE); URINE NITRITE NEGATIVE (NEGATIVE); URINE PROTEIN NEGATIVE (NEGATIVE)
[2017-07-20] MEDS ORDERED: HEPARIN INFUSION - 25,000 UNITS/500 ML INFUS.BAG IVPB SCH (22:15)
[2017-07-20 22:17] LABS: EPI CELLS RARE /HPF (FEW); URINE MUCUS RARE
[2017-07-20] MEDS ORDERED: SENNOSIDES 8.6MG TABLET (FP) PO PRN (22:23)
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
[2017-07-20] MEDS ORDERED: HEPARIN INFUSION - 25,000 UNITS/500 ML INFUS.BAG IVPB ONE (23:37)
[2017-07-21] MEDS: SODIUM CHLORIDE 1,000 ML IV SCH ×2 (00:01→23:22)
[2017-07-21] MEDS ORDERED: TAMSULOSIN HCL 0.4 MG CAP.ER.24H (FP) ONE (00:06)
[2017-07-21] MEDS ORDERED: morphine SULFATE 4 MG/ML VIAL ONE ×3 (00:07→10:08)
[2017-07-21] MEDS: morphine SULFATE 4 MG/ML VIAL IVPUSH PRN ×3 (00:31→22:57)
[2017-07-21 01:47] LABS: URINE CREATININE 78.4 mg/dL (20-370)
[2017-07-21] MEDS ORDERED: oxyCODONE HCL 5 MG TABLET ONE (01:55)
[2017-07-21] MEDS: oxyCODONE HCL 5 MG TABLET PO PRN ×2 (02:00→17:50)
[2017-07-21 06:15] LABS: BASO % 0.5 % (0-2.0); EOS % 2.8 % (0-4.5); HEMATOCRIT 34.4 % (35.4-49); HEMOGLOBIN 12.4 GM/dL (11.7-16.9); LYMPH % 31.9 % (8-40); MCH 33.3 pg (25.7-33.7); MCHC 36.1 g/dl (32.0-35.9); MEAN CELL VOLUME 92.2 fl (80-96); MEAN PLT VOLUME 7.6 fl (7.5-11.1); MONO % 8.6 % (3.8-10.2); NEUT % 56.2 % (42.8-82.8); PLATELET COUNT 145 K/MM3 (134-434); RBC 3.73 M/mm3 (4.00-5.60); RDW 13.1 % (11.9-15.9); WHITE BLOOD COUNT 7.8 K/mm3 (4.0-10.0)
[2017-07-21 06:49] LABS: CHLORIDE 108 mmol/L (98-107); POTASSIUM 4.2 mmol/L (3.5-5.1); SODIUM 143 mmol/L (136-145)
[2017-07-21 06:57] LABS: ANION GAP 8 (8-16); BLOOD UREA NITROGEN 25 mg/dL (7-18); CALCIUM 7.7 mg/dL (8.5-10.1); CO2 27 mmol/L (21-32); CREATININE 1.5 mg/dL (0.7-1.3); GLUCOSE,RANDOM 154 mg/dL (74-106); MAGNESIUM 1.7 mg/dL (1.8-2.4); PHOSPHOROUS 3.8 mg/dL (2.5-4.9)
[2017-07-21] MEDS: INSULIN SLIDING SCALE (NOVOLOG) 1 VIAL SQ SCH ×4 (07:08→22:13)
--- NOTE | 2017-07-21 08:42 | CON.CARD ---
Cardiology Consult (text) - Consultation Consultation Note: Cardiology Consult Dictated.
[2017-07-21] MEDS: levETIRAcetam XR 750 MG TAB PO SCH (09:13)
[2017-07-21] MEDS: FINASTERIDE 5 MG TABLET (FP) PO SCH (09:13)
[2017-07-21] MEDS: DOCUSATE SODIUM 100 MG CAPSULE (FP) PO SCH (09:13)
[2017-07-21] MEDS: ATORVASTATIN CA 40 MG TABLET (FP) PO SCH (09:13)
[2017-07-21] MEDS: PANTOPRAZOLE 40 MG TABLET (FP) PO SCH (09:14)
[2017-07-21] MEDS ORDERED: POTASSIUM CHLORIDE TABS 20 MEQ TABLET.ER (FP) PO SCH (10:00)
[2017-07-21] MEDS ORDERED: morphine CARPU-JECT 4 MG/1 ML DISP.SYRIN IVPUSH ONE (10:05)
[2017-07-21] MEDS ORDERED: levETIRAcetam 500 MG/5 ML INJECTION VIAL IVPB ONE ×2 (10:15→12:02)
--- NOTE | 2017-07-21 10:54 | EKG ---
Test Reason : Blood Pressure : / mmHG Vent. Rate : 094 BPM Atrial Rate : 070 BPM P-R Int : 000 ms QRS Dur : 096 ms QT Int : 354 ms P-R-T Axes : 000 000 014 degrees QTc Int : 442 ms ATRIAL FIBRILLATION LOW VOLTAGE QRS INCOMPLETE RIGHT BUNDLE BRANCH BLOCK ABNORMAL ECG WHEN COMPARED WITH ECG OF 21-FEB-2017 18:51, QT HAS SHORTENED Confirmed by DAVID MARIE MD ([id number]) on 07/21/2017 10:53:55 AM Referred By: Confirmed By:DAVID MARIE MD
[2017-07-21 11:34] LABS: INR 1.96 (0.82-1.09); PROTHROMBIN TIME (PATIENT) 22.1 SEC (9.7-13.0)
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
[2017-07-21] MEDS ORDERED: SUCCINYLCHOLINE CHLORIDE 200 MG/10 ML VIAL ONE (14:36)
[2017-07-21] MEDS ORDERED: PROPOFOL 20 ML ONE (14:36)
[2017-07-21] MEDS ORDERED: MIDAZOLAM HCL 2 MG/2 ML SINGLE DOSE VIAL ONE (14:36)
[2017-07-21] MEDS ORDERED: PHENYLEPHRINE HCL 10 MG/1 ML SINGLE DOSE VIAL ONE (15:11)
--- NOTE | 2017-07-21 16:49 | CONSULT ---
Consult - text type - Consultation Consultation Note: CC: left renal colic with acute renal insufficiency\ hpi: Patient with 48 + hours of left flank pain with nausea and vomiting. Patient with multiple medical problems on coumadin and plavix. Patient with unrelenting pain and nausea with chills. Patient denies gross hematuria. Patient with moderate frequency and urgency with nocturia x 2-3 PE afeb 8/[address] scan and labs reviewed chart reviewed discussed risks and benefits of ureteroscopy and stent x20 minuteds imp left hydronephrosis secondary to left ureteral stone acute renal insufficiency plan patient taken emergently for ureteroscopy and stent due to risk of renal failure and sepsis
--- NOTE | 2017-07-21 16:52 | OP ---
Operative Note - Note: Operative Date: 07/21/17 Pre-Operative Diagnosis: left ureteral stone/hydronephrosis/acute renal insufficiency Operation: cystoscopy/left retrograde pyelogram/left ureteroscopic stone manipulation/left ureteral stent placement Findings: 1.0x0.5 impacted left upj stone with grade 4/5 hydronephrosis Post-Operative Diagnosis: Same as Pre-op Surgeon: Tyrell Little Anesthesia: General Drains & Tubes with Location: 08/31 left ureteral stent
[2017-07-21] MEDS: LACTATED RINGERS SOLUTION 1,000 ML IV SCH (17:00)
[2017-07-21] MEDS ORDERED: ONDANSETRON 4 MG/2 ML VIAL ONE (17:04)
[2017-07-21] MEDS ORDERED: ONDANSETRON 4 MG/2 ML VIAL IVPUSH PRN (17:04)
[2017-07-21] MEDS ORDERED: PROMETHAZINE HCL 25 MG/1 ML VIAL IVPB PRN (17:07)
[2017-07-21] MEDS: DIGOXIN 0.125 MG TABLET (FP) PO SCH (17:56)
--- NOTE | 2017-07-21 18:05 | PN ---
Progress Note, Physician Chief Complaint: SEEN IN OR AWAKE ALERT NOTES REVIEWED - Current Medication List Current Medications: Active Medications Acetaminophen (Tylenol -) 650 mg PO Q4H PRN PRN Reason: FEVER Last Admin: 07/20/17 22:12 Dose: 650 mg Atorvastatin Calcium (Lipitor -) 40 mg PO DAILY [facility] Last Admin: 07/21/17 09:13 Dose: Not Given Digoxin (Lanoxin -) 0.125 mg PO DAILY [facility] Last Admin: 07/21/17 17:56 Dose: Not Given Docusate Sodium (Colace -) 100 mg PO DAILY [facility] Last Admin: 07/21/17 09:13 Dose: Not Given Fentanyl (Sublimaze Injection -) 50 mcg IVPUSH [id number] PRN PRN Reason: PAIN-PACU ORDER X 4 DOSES ONLY Last Admin: 07/21/17 16:25 Dose: 50 mcg Finasteride (Proscar -) 5 mg PO DAILY [facility] Last Admin: 07/21/17 09:13 Dose: Not Given Heparin Sodium (Porcine) (Heparin -) 1,000 unit IVPUSH PRN PRN PRN Reason: Heparin Heparin Sodium (Porcine) (Heparin -) 5,000 unit IVPUSH PRN PRN PRN Reason: Heparin Sodium Chloride (Normal Saline -) 1,000 mls @ 20 mls/hr IV ASDIR [facility] Last Admin: 07/21/17 00:01 Dose: 20 mls/hr Lactated Ringer's (Lactated Ringers Solution) 1,000 mls @ 75 mls/hr IV ASDIR [facility] Last Admin: 07/21/17 17:00 Dose: 0 mls Heparin Sodium (Porcine) 25, (000 unit/ Sodium Chloride) 500 mls @ 16 mls/hr IV TITR [facility]; 800 UNIT/HR PRN Reason: Protocol Insulin Aspart (Novolog Vial Sliding Scale -) 1 vial SQ ACHS [facility] PRN Reason: Protocol Last Admin: 07/21/17 13:43 Dose: Not Given Levetiracetam (Keppra Xr -) 750 mg PO DAILY [facility] Last Admin: 07/21/17 09:13 Dose: Not Given Metoprolol Succinate (Toprol Xl -) 50 mg PO BID [facility] Last Admin: 07/21/17 09:14 Dose: Not Given Morphine Sulfate (Morphine Sulfate) 2 mg IVPUSH Q6H PRN PRN Reason: PAIN LEVEL 7 - 10 Last Admin: 07/21/17 06:11 Dose: 2 mg Ondansetron HCl (Zofran Injection) 4 mg IVPUSH Q6H PRN PRN Reason: NAUSEA AND/OR VOMITING Last Admin: 07/21/17 17:00 Dose: 4 mg Oxycodone HCl (Roxicodone -) 30 mg PO Q6H PRN PRN Reason: PAIN LEVEL 6-10 Last Admin: 07/21/17 17:50 Dose: 30 mg Pantoprazole Sodium (Protonix -) 40 mg PO DAILY [facility] Last Admin: 07/21/17 09:14 Dose: Not Given Promethazine HCl (Phenergan Injection -) 12.5 mg IVPB Q6H PRN PRN Reason: NAUSEA-FOR RESCUE AFTER 15 MIN Senna (Senna -) 2 tab PO HS PRN PRN Reason: CONSTIPATION - Objective Vital Signs: Vital Signs Temperature 99.4 F 07/21/17 17:00 Pulse Rate 95 H 07/21/17 17:00 Respiratory Rate 15 07/21/17 17:00 Blood Pressure 106/60 07/21/17 17:00 O2 Sat by Pulse Oximetry (%) 100 07/21/17 16:45 Constitutional: Yes: Mild Distress Eyes: Yes: WNL HENT: Yes: WNL Neck: Yes: WNL Cardiovascular: Yes: Pulse Irregular Respiratory: Yes: WNL Gastrointestinal: Yes: WNL Genitourinary: Yes: Other Musculoskeletal: Yes: Back Pain, Muscle Weakness Edema: Yes Wound/Incision: Yes: Clean/Dry Neurological: Yes: Pre-Existing Deficit ...Motor Strength: LLE, RLE Psychiatric: Yes: Other Labs: CBC, BMP 07/21/17 05:44 07/21/17 05:44 INR, PTT INR 1.96 (0.82-1.09) H 07/21/17 05:44 Problem List - Problems (1) Atrial fibrillation Code(s): I48.91 - UNSPECIFIED ATRIAL FIBRILLATION Qualifiers: Atrial fibrillation type: chronic Qualified Code(s): I48.2 - Chronic atrial fibrillation (2) Diabetes Code(s): E11.9 - TYPE 2 DIABETES MELLITUS WITHOUT COMPLICATIONS (3) Hydronephrosis with renal and ureteral calculous obstruction Code(s): N13.2 - HYDRONEPHROSIS WITH RENAL AND URETERAL CALCULOUS OBSTRUCTION (4) Morbid obesity with BMI of 40.0-44.9, adult Code(s): E66.01 - MORBID (SEVERE) OBESITY DUE TO EXCESS CALORIES; Z68.41 - BODY MASS INDEX (BMI) 40.0-44.9, ADULT (5) Anxiety Code(s): F41.9 - ANXIETY DISORDER, UNSPECIFIED Assessment/Plan D/W UROLOGY, STENTS PLACED RENAL STONES HEPARIN IV STARTED BRIDGE TO COUMADIN/XARELTO CARDIOLOGY EVAL CHECK LABS PAIN CONTROL DC PLANNING
--- NOTE | 2017-07-21 20:01 | OP ---
DATE OF OPERATION: DATE OF DICTATION: 07/21/2017 PREOPERATIVE DIAGNOSIS: Left ureteral stone with hydronephrosis and acute renal insufficiency. POSTOPERATIVE DIAGNOSIS: Left ureteral stone with hydronephrosis and acute renal insufficiency. PROCEDURE: Cystoscopy, left retrograde pyelogram, and left ureteroscopic stone manipulation and stent placement. ANESTHESIA: General. DESCRIPTION OF OPERATION: The patient was brought in the operating room, placed in supine position on the operating room table. Anesthesia was administered. Patient was then placed in dorsal lithotomy position and prepped and draped in the usual sterile manner. Cystoscopy was performed, and the bladder was investigated. There was no evidence of stones or neoplasm within the bladder. A retrograde pyelogram was performed which showed a 1 cm x 0.5 cm left upper ureteral stone close to the UPJ. There was high-grade hydronephrosis. Ureteroscopy was performed after a wire had been placed into the kidney. Ureteroscopy was brought to the level of the kidney stone, and the stone was felt to be impacted. The stone was disimpacted. At this point, the patient was noted to have some bleeding. The patient had been on Plavix and was just taken off heparin. The patient had been on Coumadin at home. Due to the complicated bleeding issues, it was decided to leave the patient with a stent at this time. A 6-Bengali 24-cm stent was placed under direct visualization and fluoroscopic guidance utilizing the Seldinger technique. No complications were noted. There was excellent placement of the stent. The patient tolerated the procedure very well. The disposition of the patient was to the recovery room. Shauna [id number]
[2017-07-21] MEDS: HEPARIN - 25,000 UNIT in SODIUM CHLORIDE 495 ML IV SCH ×2 (22:13→23:22)
[2017-07-21] MEDS: MELATONIN 5 MG TABLETS PO PRN (22:33)
[2017-07-22] MEDS: oxyCODONE HCL 5 MG TABLET PO PRN ×4 (02:11→21:16)
[2017-07-22] MEDS: morphine SULFATE 4 MG/ML VIAL IVPUSH PRN ×4 (06:03→23:55)
[2017-07-22] MEDS: INSULIN SLIDING SCALE (NOVOLOG) 1 VIAL SQ SCH ×4 (06:03→21:28)
[2017-07-22 08:53] LABS: ANION GAP 6 (8-16); BLOOD UREA NITROGEN 22 mg/dL (7-18); CALCIUM 7.9 mg/dL (8.5-10.1); CHLORIDE 108 mmol/L (98-107); CO2 28 mmol/L (21-32); CREATININE 1.2 mg/dL (0.7-1.3); GLUCOSE,RANDOM 157 mg/dL (74-106); MAGNESIUM 1.7 mg/dL (1.8-2.4); POTASSIUM 4.1 mmol/L (3.5-5.1); SODIUM 142 mmol/L (136-145)
--- NOTE | 2017-07-22 08:53 | PN ---
Progress Note, Physician History of Present Illness: PELVIC PRESSURE HEMATURIA ON HEPARIN - Current Medication List Current Medications: Active Medications Acetaminophen (Tylenol -) 650 mg PO Q4H PRN PRN Reason: FEVER Last Admin: 07/20/17 22:12 Dose: 650 mg Atorvastatin Calcium (Lipitor -) 40 mg PO DAILY [facility] Last Admin: 07/21/17 09:13 Dose: Not Given Digoxin (Lanoxin -) 0.125 mg PO DAILY [facility] Last Admin: 07/21/17 17:56 Dose: Not Given Docusate Sodium (Colace -) 100 mg PO DAILY [facility] Last Admin: 07/21/17 09:13 Dose: Not Given Fentanyl (Sublimaze Injection -) 50 mcg IVPUSH [id number] PRN PRN Reason: PAIN-PACU ORDER X 4 DOSES ONLY Last Admin: 07/21/17 16:25 Dose: 50 mcg Finasteride (Proscar -) 5 mg PO DAILY [facility] Last Admin: 07/21/17 09:13 Dose: Not Given Heparin Sodium (Porcine) (Heparin -) 1,000 unit IVPUSH PRN PRN PRN Reason: Heparin Heparin Sodium (Porcine) (Heparin -) 5,000 unit IVPUSH PRN PRN PRN Reason: Heparin Sodium Chloride (Normal Saline -) 1,000 mls @ 20 mls/hr IV ASDIR [facility] Last Admin: 07/21/17 23:22 Dose: Not Given Lactated Ringer's (Lactated Ringers Solution) 1,000 mls @ 75 mls/hr IV ASDIR [facility] Last Admin: 07/21/17 17:00 Dose: 0 mls Heparin Sodium (Porcine) 25, (000 unit/ Sodium Chloride) 500 mls @ 16 mls/hr IV TITR [facility]; 800 UNIT/HR PRN Reason: Protocol Last Admin: 07/21/17 23:22 Dose: Not Given Insulin Aspart (Novolog Vial Sliding Scale -) 1 vial SQ ACHS [facility] PRN Reason: Protocol Last Admin: 07/22/17 06:03 Dose: 2 unit Levetiracetam (Keppra Xr -) 750 mg PO DAILY [facility] Last Admin: 07/21/17 09:13 Dose: Not Given Melatonin (Melatonin) 5 mg PO HS PRN PRN Reason: INSOMNIA Last Admin: 07/21/17 22:33 Dose: 5 mg Metoprolol Succinate (Toprol Xl -) 50 mg PO BID [facility] Last Admin: 07/21/17 22:14 Dose: 50 mg Morphine Sulfate (Morphine Sulfate) 2 mg IVPUSH Q6H PRN PRN Reason: PAIN LEVEL 7 - 10 Last Admin: 07/22/17 06:03 Dose: 2 mg Ondansetron HCl (Zofran Injection) 4 mg IVPUSH Q6H PRN PRN Reason: NAUSEA AND/OR VOMITING Last Admin: 07/21/17 17:00 Dose: 4 mg Oxycodone HCl (Roxicodone -) 30 mg PO Q6H PRN PRN Reason: PAIN LEVEL 6-10 Last Admin: 07/22/17 08:44 Dose: 30 mg Pantoprazole Sodium (Protonix -) 40 mg PO DAILY [facility] Last Admin: 07/21/17 09:14 Dose: Not Given Promethazine HCl (Phenergan Injection -) 12.5 mg IVPB Q6H PRN PRN Reason: NAUSEA-FOR RESCUE AFTER 15 MIN Senna (Senna -) 2 tab PO HS PRN PRN Reason: CONSTIPATION - Objective Vital Signs: Vital Signs Temperature 98.8 F 07/22/17 06:50 Pulse Rate 81 07/22/17 06:50 Respiratory Rate 20 07/22/17 06:50 Blood Pressure 105/56 07/22/17 06:50 O2 Sat by Pulse Oximetry (%) 100 07/21/17 21:00 Cardiovascular: Yes: S1, S2 Respiratory: Yes: Regular, CTA Bilaterally Gastrointestinal: Yes: Normal Bowel Sounds, Soft Edema: Yes Labs: CBC, BMP 07/21/17 05:44 INR, PTT INR 1.96 (0.82-1.09) H 07/21/17 05:44 Problem List - Problems (1) Atrial fibrillation Assessment/Plan: -ON HEPARIN -IF HEMATURIA PERSIST WILL HOLD HEPARIN--D/W CARDIO Code(s): I48.91 - UNSPECIFIED ATRIAL FIBRILLATION Qualifiers: Atrial fibrillation type: chronic Qualified Code(s): I48.2 - Chronic atrial fibrillation (2) Diabetes Code(s): E11.9 - TYPE 2 DIABETES MELLITUS WITHOUT COMPLICATIONS (3) Hydronephrosis with renal and ureteral calculous obstruction Assessment/Plan: -S/P STENTING -MONITOR Code(s): N13.2 - HYDRONEPHROSIS WITH RENAL AND URETERAL CALCULOUS OBSTRUCTION (4) Morbid obesity with BMI of 40.0-44.9, adult Code(s): E66.01 - MORBID (SEVERE) OBESITY DUE TO EXCESS CALORIES; Z68.41 - BODY MASS INDEX (BMI) 40.0-44.9, ADULT (5) CHF (congestive heart failure) Assessment/Plan: OBSERVE ON CURRENT MEDS Code(s): I50.9 - HEART FAILURE, UNSPECIFIED (6) Edema extremities Assessment/Plan: -DIURETICS -ID CONSULT -DUPLEX Code(s): R60.0 - LOCALIZED EDEMA (7) Hematuria Assessment/Plan: = ABOVE Code(s): R31.9 - HEMATURIA, UNSPECIFIED
--- NOTE | 2017-07-22 09:04 | PN ---
Progress Note, Physician Chief Complaint: having hematuria s/p left ureteral stent - Current Medication List Current Medications: Active Medications Acetaminophen (Tylenol -) 650 mg PO Q4H PRN PRN Reason: FEVER Last Admin: 07/20/17 22:12 Dose: 650 mg Atorvastatin Calcium (Lipitor -) 40 mg PO DAILY [facility] Last Admin: 07/21/17 09:13 Dose: Not Given Digoxin (Lanoxin -) 0.125 mg PO DAILY [facility] Last Admin: 07/21/17 17:56 Dose: Not Given Docusate Sodium (Colace -) 100 mg PO DAILY [facility] Last Admin: 07/21/17 09:13 Dose: Not Given Fentanyl (Sublimaze Injection -) 50 mcg IVPUSH [id number] PRN PRN Reason: PAIN-PACU ORDER X 4 DOSES ONLY Last Admin: 07/21/17 16:25 Dose: 50 mcg Finasteride (Proscar -) 5 mg PO DAILY [facility] Last Admin: 07/21/17 09:13 Dose: Not Given Heparin Sodium (Porcine) (Heparin -) 1,000 unit IVPUSH PRN PRN PRN Reason: Heparin Heparin Sodium (Porcine) (Heparin -) 5,000 unit IVPUSH PRN PRN PRN Reason: Heparin Sodium Chloride (Normal Saline -) 1,000 mls @ 20 mls/hr IV ASDIR [facility] Last Admin: 07/21/17 23:22 Dose: Not Given Lactated Ringer's (Lactated Ringers Solution) 1,000 mls @ 75 mls/hr IV ASDIR [facility] Last Admin: 07/21/17 17:00 Dose: 0 mls Heparin Sodium (Porcine) 25, (000 unit/ Sodium Chloride) 500 mls @ 16 mls/hr IV TITR [facility]; 800 UNIT/HR PRN Reason: Protocol Last Admin: 07/21/17 23:22 Dose: Not Given Insulin Aspart (Novolog Vial Sliding Scale -) 1 vial SQ ACHS [facility] PRN Reason: Protocol Last Admin: 07/22/17 06:03 Dose: 2 unit Levetiracetam (Keppra Xr -) 750 mg PO DAILY [facility] Last Admin: 07/21/17 09:13 Dose: Not Given Melatonin (Melatonin) 5 mg PO HS PRN PRN Reason: INSOMNIA Last Admin: 07/21/17 22:33 Dose: 5 mg Metoprolol Succinate (Toprol Xl -) 50 mg PO BID [facility] Last Admin: 07/21/17 22:14 Dose: 50 mg Morphine Sulfate (Morphine Sulfate) 2 mg IVPUSH Q6H PRN PRN Reason: PAIN LEVEL 7 - 10 Last Admin: 07/22/17 06:03 Dose: 2 mg Ondansetron HCl (Zofran Injection) 4 mg IVPUSH Q6H PRN PRN Reason: NAUSEA AND/OR VOMITING Last Admin: 07/21/17 17:00 Dose: 4 mg Oxycodone HCl (Roxicodone -) 30 mg PO Q6H PRN PRN Reason: PAIN LEVEL 6-10 Last Admin: 07/22/17 08:44 Dose: 30 mg Pantoprazole Sodium (Protonix -) 40 mg PO DAILY [facility] Last Admin: 07/21/17 09:14 Dose: Not Given Promethazine HCl (Phenergan Injection -) 12.5 mg IVPB Q6H PRN PRN Reason: NAUSEA-FOR RESCUE AFTER 15 MIN Senna (Senna -) 2 tab PO HS PRN PRN Reason: CONSTIPATION - Objective Vital Signs: Vital Signs Temperature 98.8 F 07/22/17 06:50 Pulse Rate 81 07/22/17 06:50 Respiratory Rate 20 07/22/17 06:50 Blood Pressure 105/56 07/22/17 06:50 O2 Sat by Pulse Oximetry (%) 100 07/21/17 21:00 Constitutional: Yes: No Distress Cardiovascular: Yes: Pulse Irregular Respiratory: Yes: CTA Bilaterally Gastrointestinal: Yes: Soft, Abdomen, Obese Edema: Yes Neurological: Yes: Alert, Oriented Labs: CBC, BMP 07/21/17 05:44 07/22/17 07:01 INR, PTT INR 1.96 (0.82-1.09) H 07/21/17 05:44 Assessment/Plan IMP: Permanent AF S/p left ureteral stent REC: If hematuria continues, we can hold heparin for a day or two. Consider ID consult for left arm ?cellulitis
[2017-07-22] MEDS ORDERED: PT OWN MED DRAWER 7, Y5N ONE (09:27)
[2017-07-22] MEDS: DOCUSATE SODIUM 100 MG CAPSULE (FP) PO SCH (09:34)
[2017-07-22] MEDS: FINASTERIDE 5 MG TABLET (FP) PO SCH (09:35)
[2017-07-22] MEDS: PANTOPRAZOLE 40 MG TABLET (FP) PO SCH (09:35)
[2017-07-22] MEDS: ATORVASTATIN CA 40 MG TABLET (FP) PO SCH (09:35)
[2017-07-22] MEDS: DIGOXIN 0.125 MG TABLET (FP) PO SCH (09:35)
[2017-07-22] MEDS: levETIRAcetam XR 750 MG TAB PO SCH (09:37)
[2017-07-22 10:16] LABS: INR 1.35 (0.82-1.09); PROTHROMBIN TIME (PATIENT) 15.2 SEC (9.7-13.0)
[2017-07-22 10:54] LABS: N-TERMINAL BNP 2208.05 pg/ml (5-125)
[2017-07-22] MEDS: HEPARIN NA (PORCINE) 5,000 UNITS/ML 1ML VIAL IVPUSH PRN (12:14)
[2017-07-22] MEDS: FUROSEMIDE 40 MG/4 ML INJECTABLE VIAL IVPUSH SCH (13:42)
--- NOTE | 2017-07-22 14:56 | PN ---
Progress Note, Physician Chief Complaint: Pt. has no GA complaints, pain controlled with oral meds. - Current Medication List Current Medications: Active Medications Acetaminophen (Tylenol -) 650 mg PO Q4H PRN PRN Reason: FEVER Last Admin: 07/20/17 22:12 Dose: 650 mg Atorvastatin Calcium (Lipitor -) 40 mg PO DAILY [facility] Last Admin: 07/22/17 09:35 Dose: 40 mg Digoxin (Lanoxin -) 0.125 mg PO DAILY [facility] Last Admin: 07/22/17 09:35 Dose: 0.125 mg Docusate Sodium (Colace -) 100 mg PO DAILY [facility] Last Admin: 07/22/17 09:34 Dose: 100 mg Fentanyl (Sublimaze Injection -) 50 mcg IVPUSH [id number] PRN PRN Reason: PAIN-PACU ORDER X 4 DOSES ONLY Last Admin: 07/21/17 16:25 Dose: 50 mcg Finasteride (Proscar -) 5 mg PO DAILY [facility] Last Admin: 07/22/17 09:35 Dose: 5 mg Furosemide (Lasix Injection -) 40 mg IVPUSH BID@0600,1400 [facility] Last Admin: 07/22/17 13:42 Dose: 40 mg Heparin Sodium (Porcine) (Heparin -) 1,000 unit IVPUSH PRN PRN PRN Reason: Heparin Heparin Sodium (Porcine) (Heparin -) 5,000 unit IVPUSH PRN PRN PRN Reason: Heparin Last Admin: 07/22/17 12:14 Dose: 5,000 unit Sodium Chloride (Normal Saline -) 1,000 mls @ 20 mls/hr IV ASDIR [facility] Last Admin: 07/21/17 23:22 Dose: Not Given Lactated Ringer's (Lactated Ringers Solution) 1,000 mls @ 75 mls/hr IV ASDIR [facility] Last Admin: 07/21/17 17:00 Dose: 0 mls HEPARIN SOD,PORK IN 0.45% NACL (Heparin-1/2ns 25,000 Units/500) 25,000 units in 500 mls @ 16 mls/hr IVPB TITR [facility]; 800 UNIT/HR PRN Reason: Protocol Insulin Aspart (Novolog Vial Sliding Scale -) 1 vial SQ ACHS [facility] PRN Reason: Protocol Last Admin: 07/22/17 11:31 Dose: 2 unit Levetiracetam (Keppra Xr -) 750 mg PO DAILY [facility] Last Admin: 07/22/17 09:37 Dose: 750 mg Melatonin (Melatonin) 5 mg PO HS PRN PRN Reason: INSOMNIA Last Admin: 07/21/17 22:33 Dose: 5 mg Metoprolol Succinate (Toprol Xl -) 50 mg PO BID [facility] Last Admin: 07/22/17 09:35 Dose: 50 mg Morphine Sulfate (Morphine Sulfate) 2 mg IVPUSH Q6H PRN PRN Reason: PAIN LEVEL 7 - 10 Last Admin: 07/22/17 10:49 Dose: 2 mg Ondansetron HCl (Zofran Injection) 4 mg IVPUSH Q6H PRN PRN Reason: NAUSEA AND/OR VOMITING Last Admin: 07/21/17 17:00 Dose: 4 mg Oxycodone HCl (Roxicodone -) 30 mg PO Q6H PRN PRN Reason: PAIN LEVEL 6-10 Last Admin: 07/22/17 08:44 Dose: 30 mg Pantoprazole Sodium (Protonix -) 40 mg PO DAILY [facility] Last Admin: 07/22/17 09:35 Dose: 40 mg Promethazine HCl (Phenergan Injection -) 12.5 mg IVPB Q6H PRN PRN Reason: NAUSEA-FOR RESCUE AFTER 15 MIN Senna (Senna -) 2 tab PO HS PRN PRN Reason: CONSTIPATION - Objective Vital Signs: Vital Signs Temperature 99.0 F 07/22/17 14:00 Pulse Rate 93 H 07/22/17 14:00 Respiratory Rate 18 07/22/17 14:00 Blood Pressure 108/63 07/22/17 14:00 O2 Sat by Pulse Oximetry (%) 100 07/21/17 21:00 Constitutional: Yes: Well Nourished, No Distress, Calm Neurological: Yes: WNL, Alert, Oriented Labs: CBC, BMP 07/21/17 05:44 07/22/17 07:01 INR, PTT INR 1.35 (0.82-1.09) H D 07/22/17 09:30 Assessment/Plan POD#1 s/p cystoscopy, ureteroscopy with stone manipulation. Doing well from anesthetic standpoint.
[2017-07-22] MEDS: HEPARIN SOD,PORK IN 0.45% NACL 25,000 UNITS/500 ML INFUS.BAG IVPB SCH (15:22)
--- NOTE | 2017-07-22 15:24 | PN ---
Progress Note (short form) - Note Progress Note: ID consult dictated imp/reccd 62 year old man with CAAD s/p 7 stents and PPM admitted with renal colic 07/20, s /p cystoscopy and stnet placement 07/21 asked to see for possible cellulitis of the arms and legs having hematuria- on heparin no fevers or chills notes both arms and legs have become swollen he thinks they are red nephrolithiasis s/p stent hemauturia enterococcal UTI no signs of cellulitis- no erythema, no induration or warmth- arms or legs blood cultures today vancomycin pending urine culture results to cover enterococcus hopefully amoxicillin po in am Problem List - Problems (1) Nephrolithiasis Code(s): N20.0 - CALCULUS OF KIDNEY (2) Hematuria Code(s): R31.9 - HEMATURIA, UNSPECIFIED (3) Enterococcus UTI Code(s): N39.0 - URINARY TRACT INFECTION, SITE NOT SPECIFIED; B95.2 - ENTEROCOCCUS THE CAUSE OF DISEASES CLASSIFIED ELSEWHERE
[2017-07-22] MEDS ORDERED: VANCOMYCIN 1,500 MG in DEXTROSE 5%-WATER - 250 ML IVPB SCH (15:30)
[2017-07-22] MEDS ORDERED: VANCOMYCIN 1,500 MG in DEXTROSE 5%-WATER - 500 ML IVPB SCH (15:45)
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
[2017-07-22] MEDS: LACTATED RINGERS SOLUTION 1,000 ML IV SCH (17:17)
[2017-07-22] MEDS: MELATONIN 5 MG TABLETS PO PRN (21:55)
[2017-07-23] MEDS: oxyCODONE HCL 5 MG TABLET PO PRN ×4 (02:16→20:14)
[2017-07-23] MEDS: FUROSEMIDE 40 MG/4 ML INJECTABLE VIAL IVPUSH SCH ×2 (05:26→14:05)
[2017-07-23] MEDS: morphine SULFATE 4 MG/ML VIAL IVPUSH PRN ×4 (05:26→23:17)
[2017-07-23] MEDS: INSULIN SLIDING SCALE (NOVOLOG) 1 VIAL SQ SCH ×4 (06:20→22:00)
[2017-07-23 08:02] LABS: BASO % 0.7 % (0-2.0); EOS % 4.3 % (0-4.5); HEMATOCRIT 34.9 % (35.4-49); HEMOGLOBIN 12.1 GM/dL (11.7-16.9); LYMPH % 29.7 % (8-40); MCH 32.3 pg (25.7-33.7); MCHC 34.8 g/dl (32.0-35.9); MEAN CELL VOLUME 92.9 fl (80-96); MEAN PLT VOLUME 7.8 fl (7.5-11.1); MONO % 8.1 % (3.8-10.2); NEUT % 57.2 % (42.8-82.8); PLATELET COUNT 148 K/MM3 (134-434); RBC 3.76 M/mm3 (4.00-5.60); RDW 13.1 % (11.9-15.9)
[2017-07-23 08:31] LABS: CHLORIDE 103 mmol/L (98-107); POTASSIUM 3.7 mmol/L (3.5-5.1); SODIUM 139 mmol/L (136-145)
--- NOTE | 2017-07-23 08:37 | PN ---
Progress Note, Physician History of Present Illness: PELVIC PRESSURE HEMATURIA ON HEPARIN - Current Medication List Current Medications: Active Medications Acetaminophen (Tylenol -) 650 mg PO Q4H PRN PRN Reason: FEVER Last Admin: 07/20/17 22:12 Dose: 650 mg Atorvastatin Calcium (Lipitor -) 40 mg PO DAILY [facility] Last Admin: 07/22/17 09:35 Dose: 40 mg Digoxin (Lanoxin -) 0.125 mg PO DAILY [facility] Last Admin: 07/22/17 09:35 Dose: 0.125 mg Docusate Sodium (Colace -) 100 mg PO DAILY [facility] Last Admin: 07/22/17 09:34 Dose: 100 mg Fentanyl (Sublimaze Injection -) 50 mcg IVPUSH [id number] PRN PRN Reason: PAIN-PACU ORDER X 4 DOSES ONLY Last Admin: 07/21/17 16:25 Dose: 50 mcg Finasteride (Proscar -) 5 mg PO DAILY [facility] Last Admin: 07/22/17 09:35 Dose: 5 mg Furosemide (Lasix Injection -) 40 mg IVPUSH BID@0600,1400 [facility] Last Admin: 07/23/17 05:26 Dose: 40 mg Heparin Sodium (Porcine) (Heparin -) 1,000 unit IVPUSH PRN PRN PRN Reason: Heparin Heparin Sodium (Porcine) (Heparin -) 5,000 unit IVPUSH PRN PRN PRN Reason: Heparin Last Admin: 07/22/17 12:14 Dose: 5,000 unit HEPARIN SOD,PORK IN 0.45% NACL (Heparin-1/2ns 25,000 Units/500) 25,000 units in 500 mls @ 16 mls/hr IVPB TITR [facility]ARI; 800 UNIT/HR PRN Reason: Protocol Last Titration: 07/22/17 15:24 Dose: 950 unit/hr, 19 mls/hr Vancomycin HCl 1,500 mg/ (Dextrose) 500 mls @ 250 mls/hr IVPB Q24H [facility] Last Admin: 07/22/17 16:23 Dose: 250 mls/hr Insulin Aspart (Novolog Vial Sliding Scale -) 1 vial SQ ACHS [facility] PRN Reason: Protocol Last Admin: 07/23/17 06:20 Dose: 2 unit Levetiracetam (Keppra Xr -) 750 mg PO DAILY [facility] Last Admin: 07/22/17 09:37 Dose: 750 mg Melatonin (Melatonin) 5 mg PO HS PRN PRN Reason: INSOMNIA Last Admin: 07/22/17 21:55 Dose: 5 mg Metoprolol Succinate (Toprol Xl -) 50 mg PO BID [facility] Last Admin: 07/22/17 21:29 Dose: 50 mg Morphine Sulfate (Morphine Sulfate) 2 mg IVPUSH Q6H PRN PRN Reason: PAIN LEVEL 7 - 10 Last Admin: 07/23/17 05:26 Dose: 2 mg Ondansetron HCl (Zofran Injection) 4 mg IVPUSH Q6H PRN PRN Reason: NAUSEA AND/OR VOMITING Last Admin: 07/21/17 17:00 Dose: 4 mg Oxycodone HCl (Roxicodone -) 30 mg PO Q6H PRN PRN Reason: PAIN LEVEL 6-10 Last Admin: 07/23/17 08:04 Dose: 30 mg Pantoprazole Sodium (Protonix -) 40 mg PO DAILY [facility] Last Admin: 07/22/17 09:35 Dose: 40 mg Promethazine HCl (Phenergan Injection -) 12.5 mg IVPB Q6H PRN PRN Reason: NAUSEA-FOR RESCUE AFTER 15 MIN Senna (Senna -) 2 tab PO HS PRN PRN Reason: CONSTIPATION - Objective Vital Signs: Vital Signs Temperature 98.4 F 07/23/17 06:00 Pulse Rate 67 07/23/17 06:00 Respiratory Rate 20 07/23/17 06:00 Blood Pressure 110/64 07/23/17 06:00 O2 Sat by Pulse Oximetry (%) 98 07/22/17 21:00 Cardiovascular: Yes: S1, S2 Respiratory: Yes: Regular, CTA Bilaterally Gastrointestinal: Yes: Normal Bowel Sounds, Soft Edema: Yes Labs: CBC, BMP 07/23/17 06:15 INR, PTT INR 1.35 (0.82-1.09) H D 07/22/17 09:30 Problem List - Problems (1) Atrial fibrillation Assessment/Plan: -ON HEPARIN -IF HEMATURIA PERSIST WILL HOLD HEPARIN--D/W CARDIO Code(s): I48.91 - UNSPECIFIED ATRIAL FIBRILLATION Qualifiers: Atrial fibrillation type: chronic Qualified Code(s): I48.2 - Chronic atrial fibrillation (2) Diabetes Code(s): E11.9 - TYPE 2 DIABETES MELLITUS WITHOUT COMPLICATIONS (3) Hydronephrosis with renal and ureteral calculous obstruction Assessment/Plan: -S/P STENTING -MONITOR Code(s): N13.2 - HYDRONEPHROSIS WITH RENAL AND URETERAL CALCULOUS OBSTRUCTION (4) Morbid obesity with BMI of 40.0-44.9, adult Code(s): E66.01 - MORBID (SEVERE) OBESITY DUE TO EXCESS CALORIES; Z68.41 - BODY MASS INDEX (BMI) 40.0-44.9, ADULT (5) CHF (congestive heart failure) Assessment/Plan: OBSERVE ON CURRENT MEDS Code(s): I50.9 - HEART FAILURE, UNSPECIFIED (6) Edema extremities Assessment/Plan: -DIURETICS -ID CONSULT -DUPLEX Code(s): R60.0 - LOCALIZED EDEMA (7) Hematuria Assessment/Plan: = ABOVE Code(s): R31.9 - HEMATURIA, UNSPECIFIED (8) Enterococcus UTI Assessment/Plan: abx per id Code(s): N39.0 - URINARY TRACT INFECTION, SITE NOT SPECIFIED; B95.2 - ENTEROCOCCUS THE CAUSE OF DISEASES CLASSIFIED ELSEWHERE
[2017-07-23 08:39] LABS: ANION GAP 8 (8-16); BLOOD UREA NITROGEN 21 mg/dL (7-18); CALCIUM 8.1 mg/dL (8.5-10.1); CO2 28 mmol/L (21-32); CREATININE 1.2 mg/dL (0.7-1.3); GLUCOSE,RANDOM 172 mg/dL (74-106)
--- NOTE | 2017-07-23 09:07 | PN ---
Progress Note, Physician Chief Complaint: Still having some hematuria - Current Medication List Current Medications: Active Medications Acetaminophen (Tylenol -) 650 mg PO Q4H PRN PRN Reason: FEVER Last Admin: 07/20/17 22:12 Dose: 650 mg Atorvastatin Calcium (Lipitor -) 40 mg PO DAILY [facility] Last Admin: 07/22/17 09:35 Dose: 40 mg Digoxin (Lanoxin -) 0.125 mg PO DAILY [facility] Last Admin: 07/22/17 09:35 Dose: 0.125 mg Docusate Sodium (Colace -) 100 mg PO DAILY [facility] Last Admin: 07/22/17 09:34 Dose: 100 mg Fentanyl (Sublimaze Injection -) 50 mcg IVPUSH [id number] PRN PRN Reason: PAIN-PACU ORDER X 4 DOSES ONLY Last Admin: 07/21/17 16:25 Dose: 50 mcg Finasteride (Proscar -) 5 mg PO DAILY [facility] Last Admin: 07/22/17 09:35 Dose: 5 mg Furosemide (Lasix Injection -) 40 mg IVPUSH BID@0600,1400 [facility] Last Admin: 07/23/17 05:26 Dose: 40 mg Heparin Sodium (Porcine) (Heparin -) 1,000 unit IVPUSH PRN PRN PRN Reason: Heparin Heparin Sodium (Porcine) (Heparin -) 5,000 unit IVPUSH PRN PRN PRN Reason: Heparin Last Admin: 07/22/17 12:14 Dose: 5,000 unit HEPARIN SOD,PORK IN 0.45% NACL (Heparin-1/2ns 25,000 Units/500) 25,000 units in 500 mls @ 16 mls/hr IVPB TITR [facility]; 800 UNIT/HR PRN Reason: Protocol Last Titration: 07/22/17 15:24 Dose: 950 unit/hr, 19 mls/hr Vancomycin HCl 1,500 mg/ (Dextrose) 500 mls @ 250 mls/hr IVPB Q24H [facility] Last Admin: 07/22/17 16:23 Dose: 250 mls/hr Insulin Aspart (Novolog Vial Sliding Scale -) 1 vial SQ ACHS [facility] PRN Reason: Protocol Last Admin: 07/23/17 06:20 Dose: 2 unit Levetiracetam (Keppra Xr -) 750 mg PO DAILY [facility] Last Admin: 07/22/17 09:37 Dose: 750 mg Melatonin (Melatonin) 5 mg PO HS PRN PRN Reason: INSOMNIA Last Admin: 07/22/17 21:55 Dose: 5 mg Metoprolol Succinate (Toprol Xl -) 50 mg PO BID [facility] Last Admin: 07/22/17 21:29 Dose: 50 mg Morphine Sulfate (Morphine Sulfate) 2 mg IVPUSH Q6H PRN PRN Reason: PAIN LEVEL 7 - 10 Last Admin: 07/23/17 05:26 Dose: 2 mg Ondansetron HCl (Zofran Injection) 4 mg IVPUSH Q6H PRN PRN Reason: NAUSEA AND/OR VOMITING Last Admin: 07/21/17 17:00 Dose: 4 mg Oxycodone HCl (Roxicodone -) 30 mg PO Q6H PRN PRN Reason: PAIN LEVEL 6-10 Last Admin: 07/23/17 08:04 Dose: 30 mg Pantoprazole Sodium (Protonix -) 40 mg PO DAILY [facility] Last Admin: 07/22/17 09:35 Dose: 40 mg Promethazine HCl (Phenergan Injection -) 12.5 mg IVPB Q6H PRN PRN Reason: NAUSEA-FOR RESCUE AFTER 15 MIN Senna (Senna -) 2 tab PO HS PRN PRN Reason: CONSTIPATION - Objective Vital Signs: Vital Signs Temperature 98.4 F 07/23/17 06:00 Pulse Rate 67 07/23/17 06:00 Respiratory Rate 20 07/23/17 06:00 Blood Pressure 110/64 07/23/17 06:00 O2 Sat by Pulse Oximetry (%) 98 07/22/17 21:00 Constitutional: Yes: No Distress Cardiovascular: Yes: Pulse Irregular Respiratory: Yes: CTA Bilaterally Gastrointestinal: Yes: Soft, Abdomen, Obese Edema: Yes Edema: LLE: 1+, RLE: 1+ Neurological: Yes: Alert, Oriented ...Motor Strength: WNL Labs: CBC, BMP 07/23/17 06:15 07/23/17 06:15 INR, PTT INR 1.35 (0.82-1.09) H D 07/22/17 09:30 Assessment/Plan IMP: Permanent AF S/p left ureteral stent REC: If hematuria continues, we can hold heparin for a day or two with overall low risk. Work up of bilateral upper extremity edema in progress.
[2017-07-23] MEDS: levETIRAcetam XR 750 MG TAB PO SCH (10:08)
[2017-07-23] MEDS: DOCUSATE SODIUM 100 MG CAPSULE (FP) PO SCH (10:08)
[2017-07-23] MEDS: DIGOXIN 0.125 MG TABLET (FP) PO SCH (10:09)
[2017-07-23] MEDS: ATORVASTATIN CA 40 MG TABLET (FP) PO SCH (10:09)
[2017-07-23] MEDS: PANTOPRAZOLE 40 MG TABLET (FP) PO SCH (10:10)
[2017-07-23] MEDS: FINASTERIDE 5 MG TABLET (FP) PO SCH (10:10)
--- NOTE | 2017-07-23 12:07 | PN ---
Progress Note (short form) - Note Progress Note: continues with swelling of arms continues with hematuria and clots Vital Signs Period Temp Pulse Resp BP Sys/Mxion Pulse Ox Last 24 Hr 98.2 F-99.8 F 67-93 18-20 101-140/62-68 98 cor-rrr lungs clear abd soft,nt ext no erythema or arms or legs CBC, BMP 07/23/17 06:15 07/23/17 06:15 Microbiology 07/20/17 22:00 Urine - Urine Clean Catch Urine Culture - Preliminary Enterococcus Faecalis 07/20/17 22:53 Blood - Peripheral Venous Blood Culture - Preliminary NO GROWTH OBTAINED AFTER 48 HOURS, INCUBATION TO CONTINUE FOR 3 DAYS. 07/20/17 22:30 Blood - Peripheral Venous Blood Culture - Preliminary NO GROWTH OBTAINED AFTER 48 HOURS, INCUBATION TO CONTINUE FOR 3 DAYS. a/p nephrolithiasis s/p stent hematuria enterococcal UTI-sensitive to amox- will switch no signs of cellulitis- no erythema, no induration or warmth- arms or legs workup of edema per cardiology/MD please call back if needed Problem List - Problems (1) Nephrolithiasis Code(s): N20.0 - CALCULUS OF KIDNEY (2) Hematuria Code(s): R31.9 - HEMATURIA, UNSPECIFIED (3) Enterococcus UTI Code(s): N39.0 - URINARY TRACT INFECTION, SITE NOT SPECIFIED; B95.2 - ENTEROCOCCUS THE CAUSE OF DISEASES CLASSIFIED ELSEWHERE
[2017-07-23] MEDS: HEPARIN NA (PORCINE) 5,000 UNITS/ML 1ML VIAL IVPUSH PRN ×2 (12:09→22:41)
[2017-07-23] MEDS: AMOXICILLIN 500 MG CAPSULE (FP) PO SCH ×2 (14:05→22:07)
[2017-07-23 14:55] VITALS: BMI 45.6
[2017-07-23] MEDS: HEPARIN SOD,PORK IN 0.45% NACL 25,000 UNITS/500 ML INFUS.BAG IVPB SCH ×2 (16:00→20:08)
[2017-07-23] MEDS: MELATONIN 5 MG TABLETS PO PRN (23:16)
[2017-07-24] MEDS: oxyCODONE HCL 5 MG TABLET PO PRN ×4 (01:49→21:38)
[2017-07-24] MEDS: morphine SULFATE 4 MG/ML VIAL IVPUSH PRN ×3 (05:38→18:56)
[2017-07-24] MEDS: FUROSEMIDE 40 MG/4 ML INJECTABLE VIAL IVPUSH SCH ×2 (05:41→14:40)
[2017-07-24] MEDS: AMOXICILLIN 500 MG CAPSULE (FP) PO SCH ×3 (05:41→21:37)
[2017-07-24 07:46] LABS: HEMATOCRIT 36.4 % (35.4-49); HEMOGLOBIN 12.8 GM/dL (11.7-16.9); MCH 32.2 pg (25.7-33.7); MCHC 35.2 g/dl (32.0-35.9); MEAN CELL VOLUME 91.6 fl (80-96); MEAN PLT VOLUME 7.6 fl (7.5-11.1); PLATELET COUNT 156 K/MM3 (134-434); RBC 3.97 M/mm3 (4.00-5.60); RDW 13.4 % (11.9-15.9); WHITE BLOOD COUNT 7.1 K/mm3 (4.0-10.0)
[2017-07-24] MEDS: INSULIN SLIDING SCALE (NOVOLOG) 1 VIAL SQ SCH ×4 (07:52→21:36)
--- NOTE | 2017-07-24 09:16 | PN ---
Progress Note, Physician Chief Complaint: no cp or sob - Current Medication List Current Medications: Active Medications Acetaminophen (Tylenol -) 650 mg PO Q4H PRN PRN Reason: FEVER Last Admin: 07/20/17 22:12 Dose: 650 mg Amoxicillin (Amoxicillin -) 500 mg PO TID [facility] Last Admin: 07/24/17 05:41 Dose: 500 mg Atorvastatin Calcium (Lipitor -) 40 mg PO DAILY [facility] Last Admin: 07/23/17 10:09 Dose: 40 mg Digoxin (Lanoxin -) 0.125 mg PO DAILY [facility] Last Admin: 07/23/17 10:09 Dose: 0.125 mg Docusate Sodium (Colace -) 100 mg PO DAILY [facility] Last Admin: 07/23/17 10:08 Dose: 100 mg Fentanyl (Sublimaze Injection -) 50 mcg IVPUSH [id number] PRN PRN Reason: PAIN-PACU ORDER X 4 DOSES ONLY Last Admin: 07/21/17 16:25 Dose: 50 mcg Finasteride (Proscar -) 5 mg PO DAILY [facility] Last Admin: 07/23/17 10:10 Dose: 5 mg Furosemide (Lasix Injection -) 40 mg IVPUSH BID@0600,1400 [facility] Last Admin: 07/24/17 05:41 Dose: 40 mg Heparin Sodium (Porcine) (Heparin -) 1,000 unit IVPUSH PRN PRN PRN Reason: Heparin Last Admin: 07/23/17 12:09 Dose: 1,000 unit Heparin Sodium (Porcine) (Heparin -) 5,000 unit IVPUSH PRN PRN PRN Reason: Heparin Last Admin: 07/23/17 22:41 Dose: 5,000 unit HEPARIN SOD,PORK IN 0.45% NACL (Heparin-1/2ns 25,000 Units/500) 25,000 units in 500 mls @ 16 mls/hr IVPB TITR [facility]; 800 UNIT/HR PRN Reason: Protocol Last Titration: 07/23/17 22:40 Dose: 1,200 unit/hr, 24 mls/hr Insulin Aspart (Novolog Vial Sliding Scale -) 1 vial SQ ACHS [facility] PRN Reason: Protocol Last Admin: 07/24/17 07:52 Dose: Not Given Levetiracetam (Keppra Xr -) 750 mg PO DAILY [facility] Last Admin: 07/23/17 10:08 Dose: 750 mg Melatonin (Melatonin) 5 mg PO HS PRN PRN Reason: INSOMNIA Last Admin: 07/23/17 23:16 Dose: 5 mg Metoprolol Succinate (Toprol Xl -) 50 mg PO BID [facility] Last Admin: 07/23/17 22:07 Dose: 50 mg Morphine Sulfate (Morphine Sulfate) 2 mg IVPUSH Q6H PRN PRN Reason: PAIN LEVEL 7 - 10 Last Admin: 07/24/17 05:38 Dose: 2 mg Ondansetron HCl (Zofran Injection) 4 mg IVPUSH Q6H PRN PRN Reason: NAUSEA AND/OR VOMITING Last Admin: 07/21/17 17:00 Dose: 4 mg Oxycodone HCl (Roxicodone -) 30 mg PO Q6H PRN PRN Reason: PAIN LEVEL 6-10 Last Admin: 07/24/17 07:52 Dose: 30 mg Pantoprazole Sodium (Protonix -) 40 mg PO DAILY [facility] Last Admin: 07/23/17 10:10 Dose: 40 mg Promethazine HCl (Phenergan Injection -) 12.5 mg IVPB Q6H PRN PRN Reason: NAUSEA-FOR RESCUE AFTER 15 MIN Senna (Senna -) 2 tab PO HS PRN PRN Reason: CONSTIPATION - Objective Vital Signs: Vital Signs Temperature 98.5 F 07/24/17 06:51 Pulse Rate 77 07/24/17 06:51 Respiratory Rate 20 07/24/17 06:51 Blood Pressure 113/76 07/24/17 06:51 O2 Sat by Pulse Oximetry (%) 95 07/23/17 21:00 Constitutional: Yes: Calm Cardiovascular: Yes: Pulse Irregular Respiratory: Yes: CTA Bilaterally Gastrointestinal: Yes: Soft, Abdomen, Obese Edema: Yes Edema: LLE: 1+, RLE: 1+ Neurological: Yes: Alert, Oriented ...Motor Strength: WNL Labs: CBC, BMP 07/24/17 06:15 07/23/17 06:15 INR, PTT INR 1.35 (0.82-1.09) H D 07/22/17 09:30 Microbiology 07/22/17 16:15 Blood - Peripheral Venous Blood Culture - Preliminary NO GROWTH OBTAINED AFTER 24 HOURS, INCUBATION TO CONTINUE FOR 4 DAYS. 07/22/17 16:05 Blood - Peripheral Venous Blood Culture - Preliminary NO GROWTH OBTAINED AFTER 24 HOURS, INCUBATION TO CONTINUE FOR 4 DAYS. Laboratory Tests 07/21/17 07/21/17 07/22/17 05:44 05:44 07:01 WBC 7.8 Hgb 12.4 D Hct Plt Count 145 PTT (Actin FS) 61.6 H D Sodium 142 Potassium 4.1 BUN 22 H Creatinine 1.2 Random Glucose 157 H Calcium 7.9 L Magnesium 1.7 L 07/23/17 07/23/17 07/23/17 06:15 06:15 06:15 WBC 6.0 Hgb 12.1 Hct Plt Count 148 PTT (Actin FS) 223.1 H Sodium Potassium 3.7 BUN Creatinine 1.2 Random Glucose Calcium Magnesium 07/24/17 07/24/17 06:15 06:15 WBC 7.1 Hgb Hct 36.4 Plt Count 156 PTT (Actin FS) 49.2 H D Sodium Potassium BUN Creatinine Random Glucose Calcium Magnesium Assessment/Plan IMP: Permanent AF S/p left ureteral stent CAD s/p PCI REC: If hematuria continues, we can hold heparin for a day or two with overall low risk. Currently holding antiplatelet Rx for few days due to hematuria, seems to be slowly improving. Work up of bilateral upper extremity edema in progress.
[2017-07-24] MEDS ORDERED: PT OWN MED DRAWER 7, Y5N ONE ×3 (10:06→21:29)
[2017-07-24] MEDS: PANTOPRAZOLE 40 MG TABLET (FP) PO SCH (10:07)
[2017-07-24] MEDS: DIGOXIN 0.125 MG TABLET (FP) PO SCH (10:08)
[2017-07-24] MEDS: ATORVASTATIN CA 40 MG TABLET (FP) PO SCH (10:08)
[2017-07-24] MEDS: FINASTERIDE 5 MG TABLET (FP) PO SCH (10:08)
[2017-07-24] MEDS: DOCUSATE SODIUM 100 MG CAPSULE (FP) PO SCH (10:08)
[2017-07-24] MEDS: HEPARIN NA (PORCINE) 5,000 UNITS/ML 1ML VIAL IVPUSH PRN (10:09)
[2017-07-24] MEDS: levETIRAcetam XR 750 MG TAB PO SCH (10:11)
--- NOTE | 2017-07-24 11:26 | PN ---
Progress Note, Physician Chief Complaint: patient seen and examined prior to going downstairs for ultrasound - Current Medication List Current Medications: Active Medications Acetaminophen (Tylenol -) 650 mg PO Q4H PRN PRN Reason: FEVER Last Admin: 07/20/17 22:12 Dose: 650 mg Amoxicillin (Amoxicillin -) 500 mg PO TID [facility] Last Admin: 07/24/17 05:41 Dose: 500 mg Atorvastatin Calcium (Lipitor -) 40 mg PO DAILY [facility] Last Admin: 07/24/17 10:08 Dose: 40 mg Digoxin (Lanoxin -) 0.125 mg PO DAILY [facility] Last Admin: 07/24/17 10:08 Dose: 0.125 mg Docusate Sodium (Colace -) 100 mg PO DAILY [facility] Last Admin: 07/24/17 10:08 Dose: 100 mg Fentanyl (Sublimaze Injection -) 50 mcg IVPUSH [id number] PRN PRN Reason: PAIN-PACU ORDER X 4 DOSES ONLY Last Admin: 07/21/17 16:25 Dose: 50 mcg Finasteride (Proscar -) 5 mg PO DAILY [facility] Last Admin: 07/24/17 10:08 Dose: 5 mg Furosemide (Lasix Injection -) 40 mg IVPUSH BID@0600,1400 [facility] Last Admin: 07/24/17 05:41 Dose: 40 mg Heparin Sodium (Porcine) (Heparin -) 1,000 unit IVPUSH PRN PRN PRN Reason: Heparin Last Admin: 07/24/17 10:09 Dose: 1,000 unit Heparin Sodium (Porcine) (Heparin -) 5,000 unit IVPUSH PRN PRN PRN Reason: Heparin Last Admin: 07/23/17 22:41 Dose: 5,000 unit HEPARIN SOD,PORK IN 0.45% NACL (Heparin-1/2ns 25,000 Units/500) 25,000 units in 500 mls @ 16 mls/hr IVPB TITR [facility]; 800 UNIT/HR PRN Reason: Protocol Last Titration: 07/24/17 10:11 Dose: 1,300 unit/hr, 26 mls/hr Insulin Aspart (Novolog Vial Sliding Scale -) 1 vial SQ ACHS [facility] PRN Reason: Protocol Last Admin: 07/24/17 07:52 Dose: Not Given Levetiracetam (Keppra Xr -) 750 mg PO DAILY [facility] Last Admin: 07/24/17 10:11 Dose: 750 mg Melatonin (Melatonin) 5 mg PO HS PRN PRN Reason: INSOMNIA Last Admin: 07/23/17 23:16 Dose: 5 mg Metoprolol Succinate (Toprol Xl -) 50 mg PO BID [facility] Last Admin: 07/24/17 10:08 Dose: 50 mg Morphine Sulfate (Morphine Sulfate) 2 mg IVPUSH Q6H PRN PRN Reason: PAIN LEVEL 7 - 10 Last Admin: 07/24/17 05:38 Dose: 2 mg Ondansetron HCl (Zofran Injection) 4 mg IVPUSH Q6H PRN PRN Reason: NAUSEA AND/OR VOMITING Last Admin: 07/21/17 17:00 Dose: 4 mg Oxycodone HCl (Roxicodone -) 30 mg PO Q6H PRN PRN Reason: PAIN LEVEL 6-10 Last Admin: 07/24/17 07:52 Dose: 30 mg Pantoprazole Sodium (Protonix -) 40 mg PO DAILY [facility] Last Admin: 07/24/17 10:07 Dose: 40 mg Promethazine HCl (Phenergan Injection -) 12.5 mg IVPB Q6H PRN PRN Reason: NAUSEA-FOR RESCUE AFTER 15 MIN Senna (Senna -) 2 tab PO HS PRN PRN Reason: CONSTIPATION - Objective Vital Signs: Vital Signs Temperature 98.6 F 07/24/17 10:12 Pulse Rate 103 H 07/24/17 10:12 Respiratory Rate 18 07/24/17 10:12 Blood Pressure 111/60 07/24/17 10:12 O2 Sat by Pulse Oximetry (%) 95 07/23/17 21:00 Constitutional: Yes: Calm Cardiovascular: Yes: Regular Rate and Rhythm, S1, S2 Respiratory: Yes: CTA Bilaterally Gastrointestinal: Yes: Normal Bowel Sounds, Soft Extremities: Yes: Other (no erythema on extremities) Edema: Yes Neurological: Yes: Alert, Oriented Labs: CBC, BMP 07/24/17 06:15 07/23/17 06:15 INR, PTT INR 1.35 (0.82-1.09) H D 07/22/17 09:30 Problem List - Problems (1) Edema extremities Assessment/Plan: ultrasound of UE orderd and LE to r/.o dvt diuretics Code(s): R60.0 - LOCALIZED EDEMA (2) Atrial fibrillation Assessment/Plan: antiplatet on hold bc of hematuria Code(s): I48.91 - UNSPECIFIED ATRIAL FIBRILLATION Qualifiers: Atrial fibrillation type: chronic Qualified Code(s): I48.2 - Chronic atrial fibrillation (3) Hydronephrosis with renal and ureteral calculous obstruction Assessment/Plan: s/p left ureteral stent placement Code(s): N13.2 - HYDRONEPHROSIS WITH RENAL AND URETERAL CALCULOUS OBSTRUCTION (4) Enterococcus UTI Assessment/Plan: amoxiccilin Code(s): N39.0 - URINARY TRACT INFECTION, SITE NOT SPECIFIED; B95.2 - ENTEROCOCCUS THE CAUSE OF DISEASES CLASSIFIED ELSEWHERE
[2017-07-24] MEDS: HEPARIN SOD,PORK IN 0.45% NACL 25,000 UNITS/500 ML INFUS.BAG IVPB SCH ×2 (14:41→21:16)
[2017-07-24] MEDS: MELATONIN 5 MG TABLETS PO PRN (21:38)
[2017-07-25] MEDS: morphine SULFATE 4 MG/ML VIAL IVPUSH PRN ×4 (01:06→18:13)
[2017-07-25] MEDS: oxyCODONE HCL 5 MG TABLET PO PRN ×4 (04:01→21:12)
[2017-07-25] MEDS: FUROSEMIDE 40 MG/4 ML INJECTABLE VIAL IVPUSH SCH (06:12)
[2017-07-25] MEDS: AMOXICILLIN 500 MG CAPSULE (FP) PO SCH ×3 (06:12→21:11)
[2017-07-25] MEDS: INSULIN SLIDING SCALE (NOVOLOG) 1 VIAL SQ SCH ×4 (06:13→21:12)
[2017-07-25 08:01] LABS: HEMATOCRIT 37.5 % (35.4-49); HEMOGLOBIN 13.3 GM/dL (11.7-16.9); MCH 32.3 pg (25.7-33.7); MCHC 35.4 g/dl (32.0-35.9); MEAN CELL VOLUME 91.1 fl (80-96); MEAN PLT VOLUME 7.8 fl (7.5-11.1); PLATELET COUNT 172 K/MM3 (134-434); RBC 4.11 M/mm3 (4.00-5.60); RDW 13.3 % (11.9-15.9); WHITE BLOOD COUNT 7.1 K/mm3 (4.0-10.0)
--- NOTE | 2017-07-25 08:58 | PN ---
Progress Note, Physician - Current Medication List Current Medications: Active Medications Acetaminophen (Tylenol -) 650 mg PO Q4H PRN PRN Reason: FEVER Last Admin: 07/20/17 22:12 Dose: 650 mg Amoxicillin (Amoxicillin -) 500 mg PO TID [facility] Last Admin: 07/25/17 06:12 Dose: 500 mg Atorvastatin Calcium (Lipitor -) 40 mg PO DAILY [facility] Last Admin: 07/24/17 10:08 Dose: 40 mg Digoxin (Lanoxin -) 0.125 mg PO DAILY [facility] Last Admin: 07/24/17 10:08 Dose: 0.125 mg Docusate Sodium (Colace -) 100 mg PO DAILY [facility] Last Admin: 07/24/17 10:08 Dose: 100 mg Finasteride (Proscar -) 5 mg PO DAILY [facility] Last Admin: 07/24/17 10:08 Dose: 5 mg Furosemide (Lasix Injection -) 40 mg IVPUSH BID@0600,1400 [facility] Last Admin: 07/25/17 06:12 Dose: 40 mg Heparin Sodium (Porcine) (Heparin -) 1,000 unit IVPUSH PRN PRN PRN Reason: Heparin Last Admin: 07/24/17 10:09 Dose: 1,000 unit Heparin Sodium (Porcine) (Heparin -) 5,000 unit IVPUSH PRN PRN PRN Reason: Heparin Last Admin: 07/23/17 22:41 Dose: 5,000 unit HEPARIN SOD,PORK IN 0.45% NACL (Heparin-1/2ns 25,000 Units/500) 25,000 units in 500 mls @ 16 mls/hr IVPB TITR [facility]; 800 UNIT/HR PRN Reason: Protocol Last Admin: 07/24/17 21:16 Dose: 1,300 unit/hr, 26 mls/hr Insulin Aspart (Novolog Vial Sliding Scale -) 1 vial SQ ACHS [facility] PRN Reason: Protocol Last Admin: 07/25/17 06:13 Dose: 4 unit Levetiracetam (Keppra Xr -) 750 mg PO DAILY [facility] Last Admin: 07/24/17 10:11 Dose: 750 mg Melatonin (Melatonin) 5 mg PO HS PRN PRN Reason: INSOMNIA Last Admin: 07/24/17 21:38 Dose: 5 mg Metoprolol Succinate (Toprol Xl -) 50 mg PO BID [facility] Last Admin: 07/24/17 21:37 Dose: 50 mg Morphine Sulfate (Morphine Sulfate) 2 mg IVPUSH Q6H PRN PRN Reason: PAIN LEVEL 7 - 10 Last Admin: 07/25/17 06:39 Dose: 2 mg Ondansetron HCl (Zofran Injection) 4 mg IVPUSH Q6H PRN PRN Reason: NAUSEA AND/OR VOMITING Last Admin: 07/21/17 17:00 Dose: 4 mg Oxycodone HCl (Roxicodone -) 30 mg PO Q6H PRN PRN Reason: PAIN LEVEL 6-10 Last Admin: 07/25/17 04:01 Dose: 30 mg Pantoprazole Sodium (Protonix -) 40 mg PO DAILY [facility] Last Admin: 07/24/17 10:07 Dose: 40 mg Promethazine HCl (Phenergan Injection -) 12.5 mg IVPB Q6H PRN PRN Reason: NAUSEA-FOR RESCUE AFTER 15 MIN Senna (Senna -) 2 tab PO HS PRN PRN Reason: CONSTIPATION - Objective Vital Signs: Vital Signs Temperature 98 F 07/25/17 06:12 Pulse Rate 77 07/25/17 06:12 Respiratory Rate 20 07/25/17 06:12 Blood Pressure 126/76 07/25/17 06:12 O2 Sat by Pulse Oximetry (%) 95 07/24/17 21:00 Cardiovascular: Yes: S1, S2 Respiratory: Yes: Regular, CTA Bilaterally Gastrointestinal: Yes: Normal Bowel Sounds, Soft Labs: CBC, BMP 07/25/17 07:00 07/23/17 06:15 INR, PTT INR 1.35 (0.82-1.09) H D 07/22/17 09:30 Problem List - Problems (1) Atrial fibrillation Assessment/Plan: -ON HEPARIN--consider changing to xarfelto after uro follow up d/w uro--hgb stable -IF HEMATURIA PERSIST WILL HOLD HEPARIN--D/W CARDIO Code(s): I48.91 - UNSPECIFIED ATRIAL FIBRILLATION Qualifiers: Atrial fibrillation type: chronic Qualified Code(s): I48.2 - Chronic atrial fibrillation (2) Diabetes Assessment/Plan: -bgm Code(s): E11.9 - TYPE 2 DIABETES MELLITUS WITHOUT COMPLICATIONS (3) Hydronephrosis with renal and ureteral calculous obstruction Assessment/Plan: -S/P STENTING -MONITOR Code(s): N13.2 - HYDRONEPHROSIS WITH RENAL AND URETERAL CALCULOUS OBSTRUCTION (4) Morbid obesity with BMI of 40.0-44.9, adult Code(s): E66.01 - MORBID (SEVERE) OBESITY DUE TO EXCESS CALORIES; Z68.41 - BODY MASS INDEX (BMI) 40.0-44.9, ADULT (5) CHF (congestive heart failure) Assessment/Plan: OBSERVE ON PO LASIX Code(s): I50.9 - HEART FAILURE, UNSPECIFIED (6) Edema extremities Assessment/Plan: -DIURETICS -ID CONSULT -DUPLEX NEGATIVE Code(s): R60.0 - LOCALIZED EDEMA (7) Hematuria Assessment/Plan: = ABOVE Code(s): R31.9 - HEMATURIA, UNSPECIFIED (8) Enterococcus UTI Assessment/Plan: abx per id-AMOX Code(s): N39.0 - URINARY TRACT INFECTION, SITE NOT SPECIFIED; B95.2 - ENTEROCOCCUS THE CAUSE OF DISEASES CLASSIFIED ELSEWHERE
[2017-07-25] MEDS ORDERED: PT OWN MED DRAWER 7, Y5N ONE (09:20)
[2017-07-25] MEDS: DOCUSATE SODIUM 100 MG CAPSULE (FP) PO SCH (09:24)
[2017-07-25] MEDS: DIGOXIN 0.125 MG TABLET (FP) PO SCH (09:24)
[2017-07-25] MEDS: FINASTERIDE 5 MG TABLET (FP) PO SCH (09:24)
[2017-07-25] MEDS: FUROSEMIDE 20 MG TABLET (FP) PO SCH ×2 (09:24→14:56)
[2017-07-25] MEDS: PANTOPRAZOLE 40 MG TABLET (FP) PO SCH (09:24)
[2017-07-25] MEDS: ATORVASTATIN CA 40 MG TABLET (FP) PO SCH (09:24)
--- NOTE | 2017-07-25 09:32 | PN ---
Progress Note, Physician Chief Complaint: no distress Still with hematuria, but H/H stable Duplex scan upper extremities normal - Current Medication List Current Medications: Active Medications Acetaminophen (Tylenol -) 650 mg PO Q4H PRN PRN Reason: FEVER Last Admin: 07/20/17 22:12 Dose: 650 mg Amoxicillin (Amoxicillin -) 500 mg PO TID [facility] Last Admin: 07/25/17 06:12 Dose: 500 mg Atorvastatin Calcium (Lipitor -) 40 mg PO DAILY [facility] Last Admin: 07/25/17 09:24 Dose: 40 mg Digoxin (Lanoxin -) 0.125 mg PO DAILY [facility] Last Admin: 07/25/17 09:24 Dose: 0.125 mg Docusate Sodium (Colace -) 100 mg PO DAILY [facility] Last Admin: 07/25/17 09:24 Dose: Not Given Finasteride (Proscar -) 5 mg PO DAILY [facility] Last Admin: 07/25/17 09:24 Dose: 5 mg Furosemide (Lasix -) 60 mg PO DAILY [facility] Heparin Sodium (Porcine) (Heparin -) 1,000 unit IVPUSH PRN PRN PRN Reason: Heparin Last Admin: 07/24/17 10:09 Dose: 1,000 unit Heparin Sodium (Porcine) (Heparin -) 5,000 unit IVPUSH PRN PRN PRN Reason: Heparin Last Admin: 07/23/17 22:41 Dose: 5,000 unit HEPARIN SOD,PORK IN 0.45% NACL (Heparin-1/2ns 25,000 Units/500) 25,000 units in 500 mls @ 16 mls/hr IVPB TITR [facility]; 800 UNIT/HR PRN Reason: Protocol Last Admin: 07/24/17 21:16 Dose: 1,300 unit/hr, 26 mls/hr Insulin Aspart (Novolog Vial Sliding Scale -) 1 vial SQ ACHS [facility] PRN Reason: Protocol Last Admin: 07/25/17 06:13 Dose: 4 unit Levetiracetam (Keppra Xr -) 750 mg PO DAILY [facility] Last Admin: 07/24/17 10:11 Dose: 750 mg Melatonin (Melatonin) 5 mg PO HS PRN PRN Reason: INSOMNIA Last Admin: 07/24/17 21:38 Dose: 5 mg Metoprolol Succinate (Toprol Xl -) 50 mg PO BID [facility] Last Admin: 05/18/18 09:25 Dose: 50 mg Morphine Sulfate (Morphine Sulfate) 2 mg IVPUSH Q6H PRN PRN Reason: PAIN LEVEL 7 - 10 Last Admin: 07/25/17 06:39 Dose: 2 mg Oxycodone HCl (Roxicodone -) 30 mg PO Q6H PRN PRN Reason: PAIN LEVEL 6-10 Last Admin: 07/25/17 09:25 Dose: 30 mg Pantoprazole Sodium (Protonix -) 40 mg PO DAILY [facility] Last Admin: 07/25/17 09:24 Dose: 40 mg Senna (Senna -) 2 tab PO HS [facility] - Objective Vital Signs: Vital Signs Temperature 99 F 07/25/17 09:21 Pulse Rate 77 07/25/17 09:24 Respiratory Rate 20 07/25/17 09:21 Blood Pressure 102/67 07/25/17 09:21 O2 Sat by Pulse Oximetry (%) 95 07/24/17 21:00 Constitutional: Yes: No Distress Cardiovascular: Yes: Pulse Irregular Respiratory: Yes: CTA Bilaterally Gastrointestinal: Yes: Soft Edema: No Neurological: Yes: Alert, Oriented Labs: CBC, BMP 07/25/17 07:00 07/23/17 06:15 INR, PTT INR 1.35 (0.82-1.09) H D 07/22/17 09:30 Laboratory Tests 07/23/17 07/25/17 07/25/17 06:15 07:00 07:00 WBC 7.1 Hct 37.5 Plt Count 172 PTT (Actin FS) 60.9 H Creatinine 1.2 Assessment/Plan IMP: Permanent AF S/p left ureteral stent CAD s/p PCI REC: If hematuria continues, we can hold heparin for a day or two with overall low risk. Hemoglobin remains stable. Currently holding antiplatelet Rx for few days due to hematuria and possible further interventions.
[2017-07-25] MEDS: levETIRAcetam XR 750 MG TAB PO SCH (10:09)
[2017-07-25] MEDS: MAG HYDROX/AL HYDROX/SIMETH 30 ML UNIT-DOSE CUP PO PRN (15:47)
[2017-07-25] MEDS: HEPARIN SOD,PORK IN 0.45% NACL 25,000 UNITS/500 ML INFUS.BAG IVPB SCH (16:29)
--- NOTE | 2017-07-25 17:46 | CONSULT ---
Consult - text type - Consultation Consultation Note: cc:hematuria hpi: pt s/p left stent on anticoagulation with gross hematuria PE no CVAT bilaterally renal sono: no hydro imp hematuria plan stent cannot unfortunately be removed. would d/c heparin and start xarelto as medicall indicated left renal discomfort while voiding is normal with a stent. narcotics will not substantilally change the pain as it only lasts for the duration of the urination
[2017-07-25] MEDS: SENNOSIDES 8.6MG TABLET (FP) PO SCH (21:11)
[2017-07-25] MEDS: MELATONIN 5 MG TABLETS PO PRN (21:11)
[2017-07-25] MEDS ORDERED: INSULIN (NOVOLOG) ASPART 100 UNITS/ML 10ML VIAL ONE (21:15)
[2017-07-26] MEDS: morphine SULFATE 4 MG/ML VIAL IVPUSH PRN ×4 (00:44→20:58)
[2017-07-26] MEDS: oxyCODONE HCL 5 MG TABLET PO PRN ×4 (04:02→23:16)
[2017-07-26] MEDS: AMOXICILLIN 500 MG CAPSULE (FP) PO SCH ×3 (06:33→21:08)
[2017-07-26] MEDS: INSULIN SLIDING SCALE (NOVOLOG) 1 VIAL SQ SCH ×4 (06:34→21:12)
[2017-07-26 07:41] LABS: HEMATOCRIT 35.2 % (35.4-49); HEMOGLOBIN 12.4 GM/dL (11.7-16.9); MCH 32.4 pg (25.7-33.7); MCHC 35.3 g/dl (32.0-35.9); MEAN CELL VOLUME 91.7 fl (80-96); MEAN PLT VOLUME 7.5 fl (7.5-11.1); PLATELET COUNT 168 K/MM3 (134-434); RBC 3.84 M/mm3 (4.00-5.60); RDW 13.1 % (11.9-15.9); WHITE BLOOD COUNT 6.6 K/mm3 (4.0-10.0)
--- NOTE | 2017-07-26 09:05 | PN ---
Progress Note, Physician History of Present Illness: PELVIC PRESSURE HEMATURIA ON HEPARIN - Current Medication List Current Medications: Active Medications Acetaminophen (Tylenol -) 650 mg PO Q4H PRN PRN Reason: FEVER Last Admin: 07/20/17 22:12 Dose: 650 mg Al Hydroxide/Mg Hydroxide (Mylanta Oral Suspension -) 30 ml PO Q6H PRN PRN Reason: INDIGESTION Last Admin: 07/25/17 15:47 Dose: 30 ml Amoxicillin (Amoxicillin -) 500 mg PO TID [facility] Last Admin: 07/26/17 06:33 Dose: 500 mg Atorvastatin Calcium (Lipitor -) 40 mg PO DAILY [facility] Last Admin: 07/25/17 09:24 Dose: 40 mg Digoxin (Lanoxin -) 0.125 mg PO DAILY [facility] Last Admin: 07/25/17 09:24 Dose: 0.125 mg Docusate Sodium (Colace -) 100 mg PO DAILY [facility] Last Admin: 07/25/17 09:24 Dose: Not Given Finasteride (Proscar -) 5 mg PO DAILY [facility] Last Admin: 07/25/17 09:24 Dose: 5 mg Furosemide (Lasix -) 60 mg PO DAILY [facility] Last Admin: 07/25/17 14:56 Dose: 60 mg Insulin Aspart (Novolog Vial Sliding Scale -) 1 vial SQ ACHS [facility] PRN Reason: Protocol Last Admin: 07/26/17 06:34 Dose: 2 unit Levetiracetam (Keppra Xr -) 750 mg PO DAILY [facility] Last Admin: 07/25/17 10:09 Dose: 750 mg Melatonin (Melatonin) 5 mg PO HS PRN PRN Reason: INSOMNIA Last Admin: 07/25/17 21:11 Dose: 5 mg Metoprolol Succinate (Toprol Xl -) 50 mg PO BID [facility] Last Admin: 07/25/17 21:12 Dose: 50 mg Morphine Sulfate (Morphine Sulfate) 2 mg IVPUSH Q6H PRN PRN Reason: PAIN LEVEL 7 - 10 Last Admin: 07/26/17 07:51 Dose: 2 mg Oxycodone HCl (Roxicodone -) 30 mg PO Q6H PRN PRN Reason: PAIN LEVEL 6-10 Last Admin: 07/26/17 04:02 Dose: 30 mg Pantoprazole Sodium (Protonix -) 40 mg PO DAILY [facility] Last Admin: 05/18/18 09:24 Dose: 40 mg Rivaroxaban (Xarelto -) 20 mg PO DAILY@1800 [facility] Senna (Senna -) 2 tab PO HS [facility] Last Admin: 07/25/17 21:11 Dose: 2 tab - Objective Vital Signs: Vital Signs Temperature 98.6 F 07/26/17 05:00 Pulse Rate 64 07/26/17 05:00 Respiratory Rate 18 07/26/17 05:00 Blood Pressure 105/76 07/26/17 05:00 O2 Sat by Pulse Oximetry (%) 98 07/25/17 21:00 Cardiovascular: Yes: S1, S2 Respiratory: Yes: Regular, CTA Bilaterally Gastrointestinal: Yes: Normal Bowel Sounds, Soft Labs: CBC, BMP 07/26/17 06:00 07/23/17 06:15 INR, PTT INR 1.35 (0.82-1.09) H D 07/22/17 09:30 Problem List - Problems (1) Atrial fibrillation Assessment/Plan: -DC HEPARIN-- changing to xarelto d/w uro--hgb stable Code(s): I48.91 - UNSPECIFIED ATRIAL FIBRILLATION Qualifiers: Atrial fibrillation type: chronic Qualified Code(s): I48.2 - Chronic atrial fibrillation (2) Diabetes Assessment/Plan: -bgm Code(s): E11.9 - TYPE 2 DIABETES MELLITUS WITHOUT COMPLICATIONS (3) Hydronephrosis with renal and ureteral calculous obstruction Assessment/Plan: -S/P STENTING -MONITOR Code(s): N13.2 - HYDRONEPHROSIS WITH RENAL AND URETERAL CALCULOUS OBSTRUCTION (4) Morbid obesity with BMI of 40.0-44.9, adult Code(s): E66.01 - MORBID (SEVERE) OBESITY DUE TO EXCESS CALORIES; Z68.41 - BODY MASS INDEX (BMI) 40.0-44.9, ADULT (5) CHF (congestive heart failure) Assessment/Plan: OBSERVE ON PO LASIX Code(s): I50.9 - HEART FAILURE, UNSPECIFIED (6) Edema extremities Assessment/Plan: -DIURETICS -ID CONSULT -DUPLEX NEGATIVE Code(s): R60.0 - LOCALIZED EDEMA (7) Hematuria Assessment/Plan: = ABOVE Code(s): R31.9 - HEMATURIA, UNSPECIFIED (8) Enterococcus UTI Assessment/Plan: abx per id-AMOX Code(s): N39.0 - URINARY TRACT INFECTION, SITE NOT SPECIFIED; B95.2 - ENTEROCOCCUS THE CAUSE OF DISEASES CLASSIFIED ELSEWHERE
[2017-07-26] MEDS: FUROSEMIDE 20 MG TABLET (FP) PO SCH (09:23)
[2017-07-26] MEDS: DOCUSATE SODIUM 100 MG CAPSULE (FP) PO SCH (09:25)
[2017-07-26] MEDS: ATORVASTATIN CA 40 MG TABLET (FP) PO SCH (09:26)
[2017-07-26] MEDS: PANTOPRAZOLE 40 MG TABLET (FP) PO SCH (09:26)
[2017-07-26] MEDS: DIGOXIN 0.125 MG TABLET (FP) PO SCH (09:28)
[2017-07-26] MEDS: MAG HYDROX/AL HYDROX/SIMETH 30 ML UNIT-DOSE CUP PO PRN ×2 (09:30→16:30)
[2017-07-26] MEDS: FINASTERIDE 5 MG TABLET (FP) PO SCH (09:30)
[2017-07-26] MEDS: levETIRAcetam XR 750 MG TAB PO SCH (09:34)
--- NOTE | 2017-07-26 18:27 | PN ---
Progress Note, Physician Chief Complaint: Pt A&Ox3; c/o ongoing difficulty lifting left arm (decreased rom; +pain). Also c /o dysuria History of Present Illness: The patient is a 62 year old white male, with a significant past medical history of HTN, NIDDM, HLD, Morbid Obesity, TBI, Anxiety, chronic pain (lower back, shoulders, and knee) CHF, A-fib, and CAD (s/p stent placement x 7), pacemaker, who presents to the emergency department with left sided abdominal pain. He describes his pain as constant and radiating to his left flank. It began this morning and has not changed location. He reports taking Oxycodone, without relief. The patient reports a similar episode in the past when he had a kidney stone on the right side. He denies any recent injuries. He denies any recent fevers, chills, headache or dizziness. He denies any recent nausea, vomit, diarrhea or constipation. He denies any recent chest pain or shortness of breath. He denies any recent dysuria, frequency, urgency or hematuria. - Current Medication List Current Medications: Active Medications Acetaminophen (Tylenol -) 650 mg PO Q4H PRN PRN Reason: FEVER Last Admin: 07/20/17 22:12 Dose: 650 mg Al Hydroxide/Mg Hydroxide (Mylanta Oral Suspension -) 30 ml PO Q6H PRN PRN Reason: INDIGESTION Last Admin: 07/26/17 16:30 Dose: 30 ml Amoxicillin (Amoxicillin -) 500 mg PO TID [facility] Last Admin: 07/26/17 14:02 Dose: 500 mg Atorvastatin Calcium (Lipitor -) 40 mg PO DAILY [facility] Last Admin: 07/26/17 09:26 Dose: 40 mg Digoxin (Lanoxin -) 0.125 mg PO DAILY [facility] Last Admin: 07/26/17 09:28 Dose: 0.125 mg Docusate Sodium (Colace -) 100 mg PO DAILY [facility] Last Admin: 07/26/17 09:25 Dose: 100 mg Finasteride (Proscar -) 5 mg PO DAILY [facility] Last Admin: 07/26/17 09:30 Dose: 5 mg Furosemide (Lasix -) 60 mg PO DAILY [facility] Last Admin: 07/26/17 09:23 Dose: 60 mg Insulin Aspart (Novolog Vial Sliding Scale -) 1 vial SQ ACHS [facility] PRN Reason: Protocol Last Admin: 07/26/17 16:36 Dose: 6 unit Levetiracetam (Keppra Xr -) 750 mg PO DAILY [facility] Last Admin: 07/26/17 09:34 Dose: 750 mg Melatonin (Melatonin) 5 mg PO HS PRN PRN Reason: INSOMNIA Last Admin: 07/25/17 21:11 Dose: 5 mg Metoprolol Succinate (Toprol Xl -) 50 mg PO BID [facility] Last Admin: 07/26/17 09:28 Dose: 50 mg Morphine Sulfate (Morphine Sulfate) 2 mg IVPUSH Q6H PRN PRN Reason: PAIN LEVEL 7 - 10 Last Admin: 07/26/17 13:58 Dose: 2 mg Oxycodone HCl (Roxicodone -) 30 mg PO Q6H PRN PRN Reason: PAIN LEVEL 6-10 Last Admin: 07/26/17 16:43 Dose: 30 mg Pantoprazole Sodium (Protonix -) 40 mg PO DAILY [facility] Last Admin: 07/26/17 09:26 Dose: 40 mg Rivaroxaban (Xarelto -) 20 mg PO DAILY@1800 [facility] Senna (Senna -) 2 tab PO HS [facility] Last Admin: 07/25/17 21:11 Dose: 2 tab - Objective Vital Signs: Vital Signs Temperature 98.6 F 07/26/17 14:05 Pulse Rate 96 H 07/26/17 14:05 Respiratory Rate 18 07/26/17 14:05 Blood Pressure 120/71 07/26/17 14:05 O2 Sat by Pulse Oximetry (%) 96 07/26/17 09:00 Constitutional: Yes: Calm Eyes: Yes: WNL HENT: Yes: WNL Neck: Yes: WNL Cardiovascular: Yes: Pulse Irregular, S1 (varies in intensity), S2 Respiratory: Yes: Regular Gastrointestinal: Yes: Soft, Abdomen, Obese ...Rectal Exam: Yes: Deferred Genitourinary: No: Anuria Musculoskeletal: Yes: Muscle Pain (left arm), Muscle Weakness Edema: Yes Edema: LLE: 1+, RLE: 1+ Peripheral Pulses WNL: Yes Integumentary: Yes: WNL Neurological: Yes: Alert, Oriented, Weakness Psychiatric: Yes: Other Labs: CBC, BMP 07/26/17 06:00 07/23/17 06:15 INR, PTT INR 1.35 (0.82-1.09) H D 07/22/17 09:30 Abnormal Lab Results 07/26/17 07/26/17 06:00 06:00 RBC 3.84 L Hct 35.2 L PTT (Actin FS) 63.9 H Problem List - Problems (1) Atrial fibrillation Assessment/Plan: Noqw on rivaroxaban for anticoagulation. On metoprolol ER for HR and BP control. On lanoxin: f/u level (keep 0.5-1.0). Code(s): I48.91 - UNSPECIFIED ATRIAL FIBRILLATION Qualifiers: Atrial fibrillation type: chronic Qualified Code(s): I48.2 - Chronic atrial fibrillation (2) Hematuria Assessment/Plan: Hb relatively unchanged at 12.4. S/p renal stent; f/u with . Code(s): R31.9 - HEMATURIA, UNSPECIFIED (3) Hydronephrosis with renal and ureteral calculous obstruction Assessment/Plan: s/p renal stent Code(s): N13.2 - HYDRONEPHROSIS WITH RENAL AND URETERAL CALCULOUS OBSTRUCTION (4) Morbid obesity with BMI of 40.0-44.9, adult Code(s): E66.01 - MORBID (SEVERE) OBESITY DUE TO EXCESS CALORIES; Z68.41 - BODY MASS INDEX (BMI) 40.0-44.9, ADULT (5) Acute on chronic diastolic (congestive) heart failure Code(s): I50.33 - ACUTE ON CHRONIC DIASTOLIC (CONGESTIVE) HEART FAILURE (6) Anxiety Code(s): F41.9 - ANXIETY DISORDER, UNSPECIFIED (7) HTN (hypertension) Assessment/Plan: BP controlled on metoprolol and furosemide. Consider ACEI or ARB (HTN; DM), unless renal or other contraindications. Code(s): I10 - ESSENTIAL (PRIMARY) HYPERTENSION (8) Morbid obesity Code(s): E66.01 - MORBID (SEVERE) OBESITY DUE TO EXCESS CALORIES (9) Hypomagnesemia Assessment/Plan: f/u level (1.7 on 07/22/17). Code(s): E83.42 - HYPOMAGNESEMIA (10) Pacemaker Assessment/Plan: f/u interrogation Code(s): Z95.0 - PRESENCE OF CARDIAC PACEMAKER
[2017-07-26] MEDS: RIVAROXABAN 20 MG TABLET PO SCH (18:33)
[2017-07-26] MEDS ORDERED: PT OWN MED DRAWER 7, Y5N ONE (20:54)
[2017-07-26] MEDS: SENNOSIDES 8.6MG TABLET (FP) PO SCH (21:08)
[2017-07-26] MEDS: MELATONIN 5 MG TABLETS PO PRN (23:18)
[2017-07-27] MEDS: morphine SULFATE 4 MG/ML VIAL IVPUSH PRN ×4 (03:09→21:10)
[2017-07-27] MEDS: MAG HYDROX/AL HYDROX/SIMETH 30 ML UNIT-DOSE CUP PO PRN (03:37)
[2017-07-27] MEDS: oxyCODONE HCL 5 MG TABLET PO PRN ×3 (05:10→17:48)
[2017-07-27] MEDS: INSULIN SLIDING SCALE (NOVOLOG) 1 VIAL SQ SCH ×4 (06:22→21:29)
[2017-07-27] MEDS: AMOXICILLIN 500 MG CAPSULE (FP) PO SCH ×3 (06:24→21:19)
--- NOTE | 2017-07-27 08:02 | PN ---
Progress Note, Physician - Current Medication List Current Medications: Active Medications Acetaminophen (Tylenol -) 650 mg PO Q4H PRN PRN Reason: FEVER Last Admin: 07/20/17 22:12 Dose: 650 mg Al Hydroxide/Mg Hydroxide (Mylanta Oral Suspension -) 30 ml PO Q6H PRN PRN Reason: INDIGESTION Last Admin: 07/27/17 03:37 Dose: 30 ml Amoxicillin (Amoxicillin -) 500 mg PO TID [facility] Last Admin: 07/27/17 06:24 Dose: 500 mg Atorvastatin Calcium (Lipitor -) 40 mg PO DAILY [facility] Last Admin: 07/26/17 09:26 Dose: 40 mg Digoxin (Lanoxin -) 0.125 mg PO DAILY [facility] Last Admin: 07/26/17 09:28 Dose: 0.125 mg Docusate Sodium (Colace -) 100 mg PO DAILY [facility] Last Admin: 07/26/17 09:25 Dose: 100 mg Finasteride (Proscar -) 5 mg PO DAILY [facility] Last Admin: 07/26/17 09:30 Dose: 5 mg Furosemide (Lasix -) 60 mg PO DAILY [facility] Last Admin: 07/26/17 09:23 Dose: 60 mg Insulin Aspart (Novolog Vial Sliding Scale -) 1 vial SQ ACHS [facility] PRN Reason: Protocol Last Admin: 07/27/17 06:22 Dose: 4 unit Levetiracetam (Keppra Xr -) 750 mg PO DAILY [facility] Last Admin: 07/26/17 09:34 Dose: 750 mg Melatonin (Melatonin) 5 mg PO HS PRN PRN Reason: INSOMNIA Last Admin: 07/26/17 23:18 Dose: 5 mg Metoprolol Succinate (Toprol Xl -) 50 mg PO BID [facility] Last Admin: 07/26/17 21:08 Dose: 50 mg Morphine Sulfate (Morphine Sulfate) 2 mg IVPUSH Q6H PRN PRN Reason: PAIN LEVEL 7 - 10 Last Admin: 07/27/17 03:09 Dose: 2 mg Oxycodone HCl (Roxicodone -) 30 mg PO Q6H PRN PRN Reason: PAIN LEVEL 6-10 Last Admin: 07/27/17 05:10 Dose: 30 mg Pantoprazole Sodium (Protonix -) 40 mg PO DAILY [facility] Last Admin: 07/26/17 09:26 Dose: 40 mg Rivaroxaban (Xarelto -) 20 mg PO DAILY@1800 [facility] Last Admin: 07/26/17 18:33 Dose: 20 mg Senna (Senna -) 2 tab PO HS [facility] Last Admin: 07/26/17 21:08 Dose: Not Given - Objective Vital Signs: Vital Signs Temperature 97.8 F 07/27/17 06:00 Pulse Rate 82 07/27/17 06:00 Respiratory Rate 18 07/27/17 06:00 Blood Pressure 106/69 07/27/17 06:00 O2 Sat by Pulse Oximetry (%) 95 07/26/17 21:00 Cardiovascular: Yes: S1, S2 Respiratory: Yes: Regular, CTA Bilaterally Gastrointestinal: Yes: Normal Bowel Sounds, Soft Labs: CBC, BMP 07/26/17 06:00 07/23/17 06:15 INR, PTT INR 1.35 (0.82-1.09) H D 07/22/17 09:30 Problem List - Problems (1) Atrial fibrillation Assessment/Plan: -DC HEPARIN-- changing to xarelto d/w uro--hgb stable Code(s): I48.91 - UNSPECIFIED ATRIAL FIBRILLATION Qualifiers: Atrial fibrillation type: chronic Qualified Code(s): I48.2 - Chronic atrial fibrillation (2) Diabetes Assessment/Plan: -bgm Code(s): E11.9 - TYPE 2 DIABETES MELLITUS WITHOUT COMPLICATIONS (3) Hydronephrosis with renal and ureteral calculous obstruction Assessment/Plan: -S/P STENTING -MONITOR Code(s): N13.2 - HYDRONEPHROSIS WITH RENAL AND URETERAL CALCULOUS OBSTRUCTION (4) Morbid obesity with BMI of 40.0-44.9, adult Code(s): E66.01 - MORBID (SEVERE) OBESITY DUE TO EXCESS CALORIES; Z68.41 - BODY MASS INDEX (BMI) 40.0-44.9, ADULT (5) CHF (congestive heart failure) Assessment/Plan: OBSERVE ON PO LASIX Code(s): I50.9 - HEART FAILURE, UNSPECIFIED (6) Edema extremities Assessment/Plan: -DIURETICS -ID CONSULT -DUPLEX NEGATIVE Code(s): R60.0 - LOCALIZED EDEMA (7) Hematuria Assessment/Plan: = ABOVE Code(s): R31.9 - HEMATURIA, UNSPECIFIED (8) Enterococcus UTI Assessment/Plan: abx per id-AMOX Code(s): N39.0 - URINARY TRACT INFECTION, SITE NOT SPECIFIED; B95.2 - ENTEROCOCCUS THE CAUSE OF DISEASES CLASSIFIED ELSEWHERE (9) Shoulder pain Assessment/Plan: -shoulder xray- -ortho Code(s): M25.519 - PAIN IN UNSPECIFIED SHOULDER
[2017-07-27 08:45] LABS: HEMATOCRIT 36.2 % (35.4-49); HEMOGLOBIN 12.4 GM/dL (11.7-16.9); MCH 31.5 pg (25.7-33.7); MCHC 34.3 g/dl (32.0-35.9); MEAN CELL VOLUME 91.8 fl (80-96); MEAN PLT VOLUME 7.7 fl (7.5-11.1); PLATELET COUNT 192 K/MM3 (134-434); RBC 3.94 M/mm3 (4.00-5.60); RDW 12.8 % (11.9-15.9); WHITE BLOOD COUNT 6.5 K/mm3 (4.0-10.0)
[2017-07-27] MEDS ORDERED: PT OWN MED DRAWER 7, Y5N ONE ×2 (09:06→11:13)
[2017-07-27] MEDS: DOCUSATE SODIUM 100 MG CAPSULE (FP) PO SCH (09:22)
[2017-07-27] MEDS: FINASTERIDE 5 MG TABLET (FP) PO SCH (09:22)
[2017-07-27] MEDS: DIGOXIN 0.125 MG TABLET (FP) PO SCH (09:22)
[2017-07-27] MEDS: ATORVASTATIN CA 40 MG TABLET (FP) PO SCH (09:22)
[2017-07-27] MEDS: levETIRAcetam XR 750 MG TAB PO SCH (09:23)
[2017-07-27] MEDS: PANTOPRAZOLE 40 MG TABLET (FP) PO SCH (09:23)
[2017-07-27] MEDS: FUROSEMIDE 20 MG TABLET (FP) PO SCH (09:23)
[2017-07-27] MEDS ORDERED: INSULIN (NOVOLOG) ASPART 100 UNITS/ML 10ML VIAL ONE (11:25)
[2017-07-27 12:37] LABS: URINE APPEARANCE SLCLOUDY; URINE BILIRUBIN NEGATIVE (<2.0 mg/dL); URINE COLOR AMBER; URINE GLUCOSE (UA) NEGATIVE (NEGATIVE); URINE KETONE NEGATIVE (NEGATIVE); URINE LEUK ESTERASE TRACE (NEGATIVE); URINE NITRITE NEGATIVE (NEGATIVE); URINE UROBILINOGEN NEGATIVE mg/dL (0.2-1.0)
[2017-07-27 12:44] LABS: URINE PROTEIN 2+ (NEGATIVE)
[2017-07-27 12:48] LABS: EPI CELLS RARE /HPF (FEW)
[2017-07-27] MEDS ORDERED: methylPREDNISolone ACET (DEPO) 80 MG/1 ML VIAL IAR ONE (15:23)
--- NOTE | 2017-07-27 15:23 | CON.ORTH ---
Consult Reason for Consultation:: left shoulder pain - Past Medical History [employer] INST[employer]ER: Yes: Other (craniotomy s/p evacuation [facility] on keppra ) Cardio/Vascular: Yes: AFIB, CAD (prior PCI, last 12/2016 at [facility], [facility]), CHF (chronic primarily diastolic), HTN, Other Pulmonary: Yes: COPD Gastrointestinal: Yes: Other (6 years earlier -negative EGD and colonoscopy) Hepatobiliary: Yes: Cirrhosis, Hepatitis C, Other (patient does not admit to cirrhosis (normal liver on ct scan does have splenomegaly)) Renal/: Yes: BPH, Renal Calculi Psych: Yes: Anxiety, Depression Musculoskeletal: Yes: Chronic low back pain, Osteoarthritis Endocrine: Yes: Diabetes Mellitus - Past Surgical History Past Surgical History: Yes: Colonoscopy, Upper Endoscopy - Alcohol/Substance Use Hx Alcohol Use: No History of Substance Use: reports: None - Smoking History Smoking history: Former smoker Have you smoked in the past 12 months: No Aproximately how many cigarettes per day: 0 If you are a former smoker, when did you quit?: 20 yrs ago - Social History Usual Living Arrangement: With Child ADL: Family Assistance Occupation: worked in [employer] with exposures History of Recent Travel: No Home Medications - Allergies Allergies/Adverse Reactions: Allergies Allergy/AdvReac Type Severity Reaction Status Date / Time No Known Allergies Allergy Verified 02/21/17 11:40 - Home Medications Home Medications: Ambulatory Orders Atorvastatin Ca [Lipitor] 40 mg PO DAILY 07/20/17 Clopidogrel Bisulfate [Clopidogrel] 75 mg PO DAILY 07/20/17 Digoxin [Lanoxin -] 0.125 mg PO DAILY 07/20/17 Finasteride 5 mg PO DAILY 07/20/17 Furosemide [Lasix] 40 mg PO ASDIR 07/20/17 Lisinopril 10 mg PO DAILY 07/20/17 Metoprolol Succinate [Toprol Xl -] 50 mg PO BID 07/20/17 Oxycodone HCl 30 mg PO Q6H PRN 07/20/17 Pantoprazole Sodium 40 mg PO DAILY 07/20/17 Potassium Chloride 20 meq PO DAILY 07/20/17 Rivaroxaban [Xarelto -] 20 mg PO HS 07/20/17 Tamsulosin HCl 0.4 mg PO DAILY 07/20/17 levETIRAcetam [Keppra Xr -] 750 mg PO DAILY 07/20/17 Family Disease History - Family Disease History Family Disease History: Heart Disease: Sister ([place] in her early 60s), [place]: Brother , Other: Mother (P.E. post hip surgery) Physical Exam for Ortho Vital Signs: Vital Signs Temperature 97.8 F 07/27/17 06:00 Pulse Rate 76 07/27/17 09:22 Respiratory Rate 18 07/27/17 06:00 Blood Pressure 106/69 07/27/17 06:00 O2 Sat by Pulse Oximetry (%) 95 07/26/17 21:00 Labs: CBC, BMP 07/27/17 07:30 07/23/17 06:15 INR, PTT INR 1.35 (0.82-1.09) H D 07/22/17 09:30 - Upper Extremity Shoulder: Yes: Left, Limited ROM, Pain, Swelling, Tenderness, Other (+ crepitus , + neer, + cordova, + empty can, nvi) Imaging - Results X-ray: Report Reviewed, Image Reviewed Assessment/Plan 62 yr man with pacemaker, Afib, HTN, CHF, NIDDM admitted for renal stones s/p stent placement. c/o pain in left shoulder no new injury/trauma. Has h/o shoulder issues in the past. a/p- severe left glenohumeral joint DJD, chronic rotator cuff arthropathy Risks and benefits were d/w pt in detail will order lido/depo injection for left shoulder May need shoulder replacement in future if conservative treatments fail Pt understands and agrees with plan d/w Dr. Willingham
[2017-07-27] MEDS ORDERED: LIDOCAINE HCL 1%, 10 MG/ML (50 mL VIAL) SQ ONE (15:24)
[2017-07-27] MEDS: RIVAROXABAN 20 MG TABLET PO SCH (17:48)
[2017-07-27] MEDS ORDERED: BENZOCAINE 20 % GEL 9 GM TUBE MM PRN (18:18)
[2017-07-27] MEDS: SENNOSIDES 8.6MG TABLET (FP) PO SCH (21:31)
[2017-07-28] MEDS: oxyCODONE HCL 5 MG TABLET PO PRN ×4 (00:04→21:45)
[2017-07-28] MEDS: MELATONIN 5 MG TABLETS PO PRN ×2 (00:04→21:47)
[2017-07-28] MEDS: morphine SULFATE 4 MG/ML VIAL IVPUSH PRN ×3 (05:15→17:03)
[2017-07-28] MEDS: AMOXICILLIN 500 MG CAPSULE (FP) PO SCH ×3 (05:23→21:46)
--- NOTE | 2017-07-28 05:25 | PN ---
Progress Note, Physician Chief Complaint: Pt denies chest pain; short of breath with mild exertion; ongoing left shoulder pain History of Present Illness: The patient is a 62 year old white male, with a significant past medical history of HTN, NIDDM, HLD, Morbid Obesity, TBI, Anxiety, chronic pain (lower back, shoulders, and knee) CHF, A-fib, and CAD (s/p stent placement x 7), pacemaker, who presents to the emergency department with left sided abdominal pain. He describes his pain as constant and radiating to his left flank. It began this morning and has not changed location. He reports taking Oxycodone, without relief. The patient reports a similar episode in the past when he had a kidney stone on the right side. He denies any recent injuries. He denies any recent fevers, chills, headache or dizziness. He denies any recent nausea, vomit, diarrhea or constipation. He denies any recent chest pain or shortness of breath. He denies any recent dysuria, frequency, urgency or hematuria. - Current Medication List Current Medications: Active Medications Acetaminophen (Tylenol -) 650 mg PO Q4H PRN PRN Reason: FEVER Last Admin: 07/20/17 22:12 Dose: 650 mg Al Hydroxide/Mg Hydroxide (Mylanta Oral Suspension -) 30 ml PO Q6H PRN PRN Reason: INDIGESTION Last Admin: 07/27/17 03:37 Dose: 30 ml Amoxicillin (Amoxicillin -) 500 mg PO TID [facility] Last Admin: 07/28/17 05:23 Dose: 500 mg Atorvastatin Calcium (Lipitor -) 40 mg PO DAILY [facility] Last Admin: 07/27/17 09:22 Dose: 40 mg Benzocaine (Anbesol -) 1 applic MM BID PRN PRN Reason: FOR TOOTH ACHE Digoxin (Lanoxin -) 0.125 mg PO DAILY [facility] Last Admin: 07/27/17 09:22 Dose: 0.125 mg Docusate Sodium (Colace -) 100 mg PO DAILY [facility] Last Admin: 07/27/17 09:22 Dose: 100 mg Finasteride (Proscar -) 5 mg PO DAILY [facility] Last Admin: 07/27/17 09:22 Dose: 5 mg Furosemide (Lasix -) 60 mg PO DAILY [facility] Last Admin: 07/27/17 09:23 Dose: 60 mg Insulin Aspart (Novolog Vial Sliding Scale -) 1 vial SQ ACHS [facility] PRN Reason: Protocol Last Admin: 07/27/17 21:29 Dose: 6 unit Levetiracetam (Keppra Xr -) 750 mg PO DAILY [facility] Last Admin: 07/27/17 09:23 Dose: 750 mg Melatonin (Melatonin) 5 mg PO HS PRN PRN Reason: INSOMNIA Last Admin: 07/28/17 00:04 Dose: 5 mg Metoprolol Succinate (Toprol Xl -) 50 mg PO BID [facility] Last Admin: 07/27/17 21:19 Dose: 50 mg Morphine Sulfate (Morphine Sulfate) 2 mg IVPUSH Q6H PRN PRN Reason: PAIN LEVEL 7 - 10 Last Admin: 07/27/17 21:10 Dose: 2 mg Benzocaine 10% Oral (Gel) 1 each MM Q12H PRN PRN Reason: TOOTH ACHE Oxycodone HCl (Roxicodone -) 30 mg PO Q6H PRN PRN Reason: PAIN LEVEL 6-10 Last Admin: 07/28/17 00:04 Dose: 30 mg Pantoprazole Sodium (Protonix -) 40 mg PO DAILY [facility] Last Admin: 07/27/17 09:23 Dose: 40 mg Rivaroxaban (Xarelto -) 20 mg PO DAILY@1800 [facility] Last Admin: 07/27/17 17:48 Dose: 20 mg Senna (Senna -) 2 tab PO HS [facility] Last Admin: 07/27/17 21:31 Dose: Not Given - Objective Vital Signs: Vital Signs Temperature 98.6 F 07/27/17 23:00 Pulse Rate 86 07/27/17 23:00 Respiratory Rate 20 07/27/17 23:00 Blood Pressure 127/76 07/27/17 23:00 O2 Sat by Pulse Oximetry (%) 95 07/27/17 21:00 Constitutional: Yes: Calm Eyes: Yes: WNL HENT: Yes: WNL Neck: Yes: WNL Cardiovascular: Yes: S1 (varies in intensity), S2. No: WNL Respiratory: Yes: WNL Gastrointestinal: Yes: Soft, Abdomen, Obese ...Rectal Exam: Yes: Deferred Genitourinary: No: Anuria Musculoskeletal: Yes: Muscle Weakness, Other (left shoulder pain). No: Joint Stiffness Extremities: Yes: Cool Edema: Yes Edema: LLE: Trace, RLE: Trace Peripheral Pulses WNL: Yes Integumentary: Yes: WNL Psychiatric: Yes: WNL Labs: CBC, BMP 07/27/17 07:30 07/23/17 06:15 INR, PTT INR 1.35 (0.82-1.09) H D 07/22/17 09:30 Abnormal Lab Results 07/27/17 07/27/17 07/27/17 07:30 07:30 07:30 RBC 3.94 L PTT (Actin FS) 36.3 H D Urine Protein Urine Blood Digoxin 0.7055 L 07/27/17 10:30 RBC PTT (Actin FS) Urine Protein 2+ H Urine Blood 3+ H Digoxin - ....Imaging X-ray: Image Reviewed (severe left shoulder degenerative disease) Problem List - Problems (1) Atrial fibrillation Assessment/Plan: On rivaroxaban for anticoagulation. On metoprolol ER for HR and BP control. On lanoxin: (keep 0.5-1.0; presently 0.7). Code(s): I48.91 - UNSPECIFIED ATRIAL FIBRILLATION Qualifiers: Atrial fibrillation type: chronic Qualified Code(s): I48.2 - Chronic atrial fibrillation (2) Hematuria Assessment/Plan: Hb steady for past 48 hours at 12.4. S/p renal stent; f/u with . Code(s): R31.9 - HEMATURIA, UNSPECIFIED (3) Hydronephrosis with renal and ureteral calculous obstruction Assessment/Plan: s/p renal stent Code(s): N13.2 - HYDRONEPHROSIS WITH RENAL AND URETERAL CALCULOUS OBSTRUCTION (4) Morbid obesity with BMI of 40.0-44.9, adult Code(s): E66.01 - MORBID (SEVERE) OBESITY DUE TO EXCESS CALORIES; Z68.41 - BODY MASS INDEX (BMI) 40.0-44.9, ADULT (5) Acute on chronic diastolic (congestive) heart failure Code(s): I50.33 - ACUTE ON CHRONIC DIASTOLIC (CONGESTIVE) HEART FAILURE (6) Anxiety Code(s): F41.9 - ANXIETY DISORDER, UNSPECIFIED (7) HTN (hypertension) Assessment/Plan: BP controlled on metoprolol and furosemide. Consider ACEI or ARB (HTN; DM), unless renal or other contraindications. Code(s): I10 - ESSENTIAL (PRIMARY) HYPERTENSION (8) Morbid obesity Code(s): E66.01 - MORBID (SEVERE) OBESITY DUE TO EXCESS CALORIES (9) Hypomagnesemia Assessment/Plan: f/u level (1.7 on 07/22/17-->1.8 on 07/23/17). Code(s): E83.42 - HYPOMAGNESEMIA (10) Pacemaker Assessment/Plan: f/u interrogation Code(s): Z95.0 - PRESENCE OF CARDIAC PACEMAKER (11) Left shoulder pain Assessment/Plan: orthopedic workup in progress Code(s): M25.512 - PAIN IN LEFT SHOULDER
[2017-07-28] MEDS: BENZOCAINE 10% MM PRN (05:28)
[2017-07-28] MEDS: INSULIN SLIDING SCALE (NOVOLOG) 1 VIAL SQ SCH ×4 (06:19→21:52)
[2017-07-28 08:07] LABS: ANION GAP 6 (8-16); BLOOD UREA NITROGEN 22 mg/dL (7-18); CALCIUM 8.4 mg/dL (8.5-10.1); CHLORIDE 99 mmol/L (98-107); CO2 33 mmol/L (21-32); CREATININE 1.4 mg/dL (0.7-1.3); MAGNESIUM 2.2 mg/dL (1.8-2.4); POTASSIUM 4.3 mmol/L (3.5-5.1); SODIUM 138 mmol/L (136-145)
[2017-07-28 09:37] LABS: GLUCOSE,RANDOM 358 mg/dL (74-106)
[2017-07-28] MEDS ORDERED: PT OWN MED DRAWER 7, Y5N ONE ×3 (10:11→16:35)
[2017-07-28] MEDS: DOCUSATE SODIUM 100 MG CAPSULE (FP) PO SCH (10:52)
[2017-07-28] MEDS: CLOPIDOGREL BISULFATE 75 MG TABLET (FP) PO SCH (10:52)
[2017-07-28] MEDS: ATORVASTATIN CA 40 MG TABLET (FP) PO SCH (10:52)
[2017-07-28] MEDS: FINASTERIDE 5 MG TABLET (FP) PO SCH (10:52)
[2017-07-28] MEDS: FUROSEMIDE 20 MG TABLET (FP) PO SCH (10:53)
[2017-07-28] MEDS: DIGOXIN 0.125 MG TABLET (FP) PO SCH (10:53)
[2017-07-28] MEDS: levETIRAcetam XR 750 MG TAB PO SCH (10:53)
[2017-07-28] MEDS: PANTOPRAZOLE 40 MG TABLET (FP) PO SCH (10:53)
[2017-07-28] MEDS ORDERED: INSULIN (NOVOLOG) ASPART 100 UNITS/ML 10ML VIAL ONE ×3 (11:23→20:47)
--- NOTE | 2017-07-28 11:32 | PN ---
Progress Note (short form) - Note Progress Note: Ortho Pt seen and examined -After consent obtained, time out performed, under sterile technique left GH was injected with lidocaine and depo medrol, injection was tolerated well a/p Injection will take 3-4 days to begin taking effect ROM exercises ICE ok to d/c from ortho pov when medically stable f/u in the office in 3 weeks d/w Dr. Willingham
--- NOTE | 2017-07-28 12:41 | PN ---
Progress Note, Physician Chief Complaint: patient concerned about his hematuria also complaining of hand and arm swelling and numbness and wants neurology eval got left shoulder injection today by ortho - Current Medication List Current Medications: Active Medications Acetaminophen (Tylenol -) 650 mg PO Q4H PRN PRN Reason: FEVER Last Admin: 07/20/17 22:12 Dose: 650 mg Al Hydroxide/Mg Hydroxide (Mylanta Oral Suspension -) 30 ml PO Q6H PRN PRN Reason: INDIGESTION Last Admin: 07/27/17 03:37 Dose: 30 ml Amoxicillin (Amoxicillin -) 500 mg PO TID [facility] Last Admin: 07/28/17 05:23 Dose: 500 mg Atorvastatin Calcium (Lipitor -) 40 mg PO DAILY [facility] Last Admin: 07/28/17 10:52 Dose: 40 mg Benzocaine (Anbesol -) 1 applic MM BID PRN PRN Reason: FOR TOOTH ACHE Clopidogrel Bisulfate (Plavix -) 75 mg PO DAILY [facility] Last Admin: 07/28/17 10:52 Dose: 75 mg Digoxin (Lanoxin -) 0.125 mg PO DAILY [facility] Last Admin: 07/28/17 10:53 Dose: 0.125 mg Docusate Sodium (Colace -) 100 mg PO DAILY [facility] Last Admin: 07/28/17 10:52 Dose: 100 mg Finasteride (Proscar -) 5 mg PO DAILY [facility] Last Admin: 07/28/17 10:52 Dose: 5 mg Furosemide (Lasix -) 60 mg PO DAILY [facility] Last Admin: 07/28/17 10:53 Dose: 60 mg Insulin Aspart (Novolog Vial Sliding Scale -) 1 vial SQ ACHS [facility] PRN Reason: Protocol Last Admin: 07/28/17 11:26 Dose: 8 unit Levetiracetam (Keppra Xr -) 750 mg PO DAILY [facility] Last Admin: 07/28/17 10:53 Dose: 750 mg Melatonin (Melatonin) 5 mg PO HS PRN PRN Reason: INSOMNIA Last Admin: 07/28/17 00:04 Dose: 5 mg Metoprolol Succinate (Toprol Xl -) 50 mg PO BID [facility] Last Admin: 07/28/17 10:52 Dose: 50 mg Morphine Sulfate (Morphine Sulfate) 2 mg IVPUSH Q6H PRN PRN Reason: PAIN LEVEL 7 - 10 Last Admin: 07/28/17 11:02 Dose: 2 mg Benzocaine 10% Oral (Gel) 1 each MM Q12H PRN PRN Reason: TOOTH ACHE Last Admin: 07/28/17 05:28 Dose: 1 each Oxycodone HCl (Roxicodone -) 30 mg PO Q6H PRN PRN Reason: PAIN LEVEL 6-10 Last Admin: 07/28/17 06:58 Dose: 30 mg Pantoprazole Sodium (Protonix -) 40 mg PO DAILY [facility] Last Admin: 07/28/17 10:53 Dose: 40 mg Rivaroxaban (Xarelto -) 20 mg PO DAILY@1800 [facility] Last Admin: 07/27/17 17:48 Dose: 20 mg Senna (Senna -) 2 tab PO HS [facility] Last Admin: 07/27/17 21:31 Dose: Not Given - Objective Vital Signs: Vital Signs Temperature 98.4 F 07/28/17 06:00 Pulse Rate 85 07/28/17 10:53 Respiratory Rate 20 07/28/17 06:00 Blood Pressure 131/67 07/28/17 06:00 O2 Sat by Pulse Oximetry (%) 95 07/27/17 21:00 Constitutional: Yes: Calm Neck: Yes: Trachea Midline Cardiovascular: Yes: Regular Rate and Rhythm, S1, S2 Respiratory: Yes: CTA Bilaterally Gastrointestinal: Yes: Normal Bowel Sounds, Soft Edema: Yes (arms and legs) Neurological: Yes: Alert, Oriented Labs: CBC, BMP 07/27/17 07:30 07/28/17 07:00 INR, PTT INR 1.35 (0.82-1.09) H D 07/22/17 09:30 Problem List - Problems (1) Edema extremities Assessment/Plan: ultrasound of UE orderd no dvt diuretics lasix 60mg will get neurology to see patient complaining of hand and arm numbness Code(s): R60.0 - LOCALIZED EDEMA (2) Atrial fibrillation Assessment/Plan: on xarelto h/h stable Code(s): I48.91 - UNSPECIFIED ATRIAL FIBRILLATION Qualifiers: Atrial fibrillation type: chronic Qualified Code(s): I48.2 - Chronic atrial fibrillation (3) Hydronephrosis with renal and ureteral calculous obstruction Assessment/Plan: s/p left ureteral stent placement repeat sono shows no more stones or hydro will get urology FU Code(s): N13.2 - HYDRONEPHROSIS WITH RENAL AND URETERAL CALCULOUS OBSTRUCTION (4) Enterococcus UTI Assessment/Plan: amoxiccilin two more doses left Code(s): N39.0 - URINARY TRACT INFECTION, SITE NOT SPECIFIED; B95.2 - ENTEROCOCCUS THE CAUSE OF DISEASES CLASSIFIED ELSEWHERE (5) Hematuria Assessment/Plan: urology FU today h/h stable on xarelto Code(s): R31.9 - HEMATURIA, UNSPECIFIED (6) Left shoulder pain Assessment/Plan: s/p injection today by ortho Code(s): M25.512 - PAIN IN LEFT SHOULDER
--- NOTE | 2017-07-28 14:24 | CON.NEURO ---
Consult Consult Specialty:: [facility] Referred by:: Priya Reason for Consultation:: hand numbness - History of Present Illness History of Present Illness: 62 man well known to me from the office PMH HTN, NIDDM, HLD, Morbid Obesity, TBI, Anxiety, chronic pain (lower back, shoulders, and knee) CHF, A-fib, and CAD (s/p stent placement x 7), pacemaker, Neurology wwas called to assist patient in today with a chief complaint of bilateral arm numbness tingling difficulty using his arms. Patient used to be on gabapentin and was doing very well since the patient was admitted to the hospital patient has not been getting the gabapentin. Also the patient was noted to be with very high sugar patient claims that he was not diabetic and he was cured of the diabetes!. Patient denies any whiplash injury or traumatic injury to the neck. Patient claims that he also gets numbness and tingling with difficulty standing on the legs. Patient describes the numbness is worse on the right arm more than the left with weakness and difficulty with fine motor activity. - History Source History Provided By: Patient, Medical Record - Past Medical History [employer]: Yes: Other (craniotomy s/p evacuation [facility] ) Cardio/Vascular: Yes: AFIB, CAD (prior PCI, last 12/2016 at [place], [facility]), CHF (chronic primarily diastolic), HTN, Other Pulmonary: Yes: COPD Gastrointestinal: Yes: Other (6 years earlier -negative EGD and colonoscopy) Hepatobiliary: Yes: Cirrhosis, Hepatitis C, Other (patient does not admit to cirrhosis (normal liver on ct scan does have splenomegaly)) Renal/: Yes: BPH, Renal Calculi Psych: Yes: Anxiety, Depression Musculoskeletal: Yes: Chronic low back pain, Osteoarthritis Endocrine: Yes: Diabetes Mellitus - Past Surgical History Past Surgical History: Yes: Colonoscopy, Upper Endoscopy - Alcohol/Substance Use Hx Alcohol Use: No History of Substance Use: reports: None - Smoking History Smoking history: Former smoker Have you smoked in the past 12 months: No Aproximately how many cigarettes per day: 0 If you are a former smoker, when did you quit?: 20 yrs ago - Social History Usual Living Arrangement: With Child ADL: Family Assistance Occupation: worked in [employer] with exposures History of Recent Travel: No Home Medications - Allergies Allergies/Adverse Reactions: Allergies Allergy/AdvReac Type Severity Reaction Status Date / Time No Known Allergies Allergy Verified 02/21/17 11:40 - Home Medications Home Medications: Ambulatory Orders Atorvastatin Ca [Lipitor] 40 mg PO DAILY 07/20/17 Clopidogrel Bisulfate [Clopidogrel] 75 mg PO DAILY 07/20/17 Digoxin [Lanoxin -] 0.125 mg PO DAILY 07/20/17 Finasteride 5 mg PO DAILY 07/20/17 Furosemide [Lasix] 40 mg PO ASDIR 07/20/17 Lisinopril 10 mg PO DAILY 07/20/17 Metoprolol Succinate [Toprol Xl -] 50 mg PO BID 07/20/17 Oxycodone HCl 30 mg PO Q6H PRN 07/20/17 Pantoprazole Sodium 40 mg PO DAILY 07/20/17 Potassium Chloride 20 meq PO DAILY 07/20/17 Rivaroxaban [Xarelto -] 20 mg PO HS 07/20/17 Tamsulosin HCl 0.4 mg PO DAILY 07/20/17 levETIRAcetam [Keppra Xr -] 750 mg PO DAILY 07/20/17 Family Disease History - Family Disease History Family Disease History: Heart Disease: Sister ([place] in her early 60s), [place]: Brother , Other: Mother ([place].E. post hip surgery) Review of Systems - Review of Systems Musculoskeletal: reports: Back Pain, Joint Pain, Muscle Pain Neurological: reports: Incoordination, Numbness, Parasthesia Physical Exam-Neuro Vital Signs: Vital Signs Temperature 98.3 F 07/28/17 09:00 Pulse Rate 85 07/28/17 10:53 Respiratory Rate 22 07/28/17 09:00 Blood Pressure 119/71 07/28/17 09:00 O2 Sat by Pulse Oximetry (%) 95 07/27/17 21:00 Constitutional: Yes: Anxious Neck: Yes: WNL Cardiovascular: Yes: WNL Labs: CBC, BMP 07/27/17 07:30 07/28/17 07:00 INR, PTT INR 1.35 (0.82-1.09) H D 07/22/17 09:30 - Neuro Exam Level Of Consciousness: Yes: Oriented to Person, Oriented to Place, Oriented to Time Eyes: Yes: PERRLA Speech: WNL Dominant Hand: Right Cranial Nerves II-XII Intact: Yes Gag: Present DTR's: 0 Left Bicep, 0 Right Bicep, 0 Left Brachioradialis, 0 Right Brachioradialis Response to light touch: Abnormal Response to pain prick: Abnormal Response to temperature: Abnormal Motor Strength: 3/5: Left Leg, Right Leg, 4/5: Left Arm, Right Arm Gait: Deferred Problem List - Problems (1) Neuropathy Assessment/Plan: patient with a 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 Patient was poorly controlled diabetes which will aggravate his neuropathy patient was doing well on the gabapentin. 1. Fall precautions. 2. Increase by mouth fluid intake. 3. Tight blood sugar control. 4. Weight loss. 5. Resume gabapentin with kidney clearance. 6. Obtain the records of the nurse test from the office. 7. B complex vitamin. 8. CAT scan of the cervical spine with no contrast indication cervical radiculopathy. 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 Patient was placed on Keppra prophylactically patient does not have a history of seizure no family history of epilepsy. Patient has been taking 750 mg of Keppra for 5-6 years with no evidence of seizures. Given the fact that the patient presented with acute renal failure and the Keppra is renally excreted I will start tapering the Keppra slowly. Code(s): R56.9 - UNSPECIFIED CONVULSIONS
[2017-07-28] MEDS: RIVAROXABAN 20 MG TABLET PO SCH (17:04)
--- NOTE | 2017-07-28 17:25 | CONSULT ---
Consult - text type - Consultation Consultation Note: cc: hematuria s/p stent for obstructing 1.5 cm stone hpi: patient with mild gross hematuria without clots. Hct has been stable x 7 days. pe no CVAT imp s/p stent hematuria plan patient would be best served to continue with the stent at this time. The hematuria is not clinically significant and is improving. patient is urologically cleared for discharge.
[2017-07-28] MEDS: SENNOSIDES 8.6MG TABLET (FP) PO SCH (21:54)
[2017-07-29] MEDS: morphine SULFATE 4 MG/ML VIAL IVPUSH PRN ×2 (00:11→06:44)
[2017-07-29] MEDS: oxyCODONE HCL 5 MG TABLET PO PRN ×4 (04:37→22:59)
[2017-07-29] MEDS: AMOXICILLIN 500 MG CAPSULE (FP) PO SCH ×3 (05:39→21:37)
[2017-07-29] MEDS: BENZOCAINE 10% MM PRN (05:42)
[2017-07-29] MEDS: INSULIN SLIDING SCALE (NOVOLOG) 1 VIAL SQ SCH ×4 (06:52→21:36)
--- NOTE | 2017-07-29 09:15 | PN ---
Progress Note, Physician Chief Complaint: no distress input noted - Current Medication List Current Medications: Active Medications Acetaminophen (Tylenol -) 650 mg PO Q4H PRN PRN Reason: FEVER Last Admin: 07/20/17 22:12 Dose: 650 mg Al Hydroxide/Mg Hydroxide (Mylanta Oral Suspension -) 30 ml PO Q6H PRN PRN Reason: INDIGESTION Last Admin: 07/27/17 03:37 Dose: 30 ml Amoxicillin (Amoxicillin -) 500 mg PO TID [facility] Last Admin: 07/29/17 05:39 Dose: 500 mg Atorvastatin Calcium (Lipitor -) 40 mg PO DAILY [facility] Last Admin: 07/28/17 10:52 Dose: 40 mg Benzocaine (Anbesol -) 1 applic MM BID PRN PRN Reason: FOR TOOTH ACHE Clopidogrel Bisulfate (Plavix -) 75 mg PO DAILY [facility] Last Admin: 07/28/17 10:52 Dose: 75 mg Digoxin (Lanoxin -) 0.125 mg PO DAILY [facility] Last Admin: 07/28/17 10:53 Dose: 0.125 mg Docusate Sodium (Colace -) 100 mg PO DAILY [facility] Last Admin: 07/28/17 10:52 Dose: 100 mg Finasteride (Proscar -) 5 mg PO DAILY [facility] Last Admin: 07/28/17 10:52 Dose: 5 mg Furosemide (Lasix -) 60 mg PO DAILY [facility] Last Admin: 07/28/17 10:53 Dose: 60 mg Gabapentin (Neurontin -) 300 mg PO DAILY [facility] Insulin Aspart (Novolog Vial Sliding Scale -) 1 vial SQ ACHS [facility] PRN Reason: Protocol Last Admin: 07/29/17 06:52 Dose: 8 unit Levetiracetam (Keppra Xr -) 500 mg PO DAILY [facility] Melatonin (Melatonin) 5 mg PO HS PRN PRN Reason: INSOMNIA Last Admin: 07/28/17 21:47 Dose: 5 mg Metoprolol Succinate (Toprol Xl -) 50 mg PO BID [facility] Last Admin: 07/28/17 21:46 Dose: 50 mg Morphine Sulfate (Morphine Sulfate) 2 mg IVPUSH Q6H PRN PRN Reason: PAIN LEVEL 7 - 10 Last Admin: 07/29/17 06:44 Dose: 2 mg Benzocaine 10% Oral (Gel) 1 each MM Q12H PRN PRN Reason: TOOTH ACHE Last Admin: 07/29/17 05:42 Dose: 1 each Oxycodone HCl (Roxicodone -) 30 mg PO Q6H PRN PRN Reason: PAIN LEVEL 6-10 Last Admin: 07/29/17 04:37 Dose: 30 mg Pantoprazole Sodium (Protonix -) 40 mg PO DAILY [facility] Last Admin: 07/28/17 10:53 Dose: 40 mg Rivaroxaban (Xarelto -) 20 mg PO DAILY@1800 [facility] Last Admin: 07/28/17 17:04 Dose: 20 mg Senna (Senna -) 2 tab PO HS [facility] Last Admin: 07/28/17 21:54 Dose: Not Given - Objective Vital Signs: Vital Signs Temperature 97.6 F 07/29/17 06:00 Pulse Rate 73 07/29/17 06:00 Respiratory Rate 20 07/29/17 06:00 Blood Pressure 118/58 07/29/17 06:00 O2 Sat by Pulse Oximetry (%) 97 07/28/17 21:00 Constitutional: Yes: No Distress, Calm Cardiovascular: Yes: Pulse Irregular Respiratory: Yes: CTA Bilaterally Gastrointestinal: Yes: Soft, Abdomen, Obese Edema: Yes Edema: LLE: 1+, RLE: 1+ Neurological: Yes: Alert, Oriented ...Motor Strength: WNL Labs: CBC, BMP 07/27/17 07:30 07/29/17 07:35 INR, PTT INR 1.35 (0.82-1.09) H D 07/22/17 09:30 Laboratory Tests 07/27/17 07/27/17 07:30 07:30 WBC 6.5 Hgb 12.4 Plt Count 192 PTT (Actin FS) 36.3 H D Assessment/Plan IMP: Permanent AF S/p left ureteral stent CAD s/p PCI REC: H/H stable Hematuria has not been clinically significant input appreciated. Patient has resumed Xarelto. Will sign off today. Please call back as needed, thank you.
[2017-07-29] MEDS: PANTOPRAZOLE 40 MG TABLET (FP) PO SCH (09:58)
[2017-07-29] MEDS: ATORVASTATIN CA 40 MG TABLET (FP) PO SCH (09:58)
[2017-07-29] MEDS: FUROSEMIDE 20 MG TABLET (FP) PO SCH (09:58)
[2017-07-29] MEDS: DOCUSATE SODIUM 100 MG CAPSULE (FP) PO SCH (09:58)
[2017-07-29] MEDS: FINASTERIDE 5 MG TABLET (FP) PO SCH (09:58)
[2017-07-29] MEDS: CLOPIDOGREL BISULFATE 75 MG TABLET (FP) PO SCH (09:58)
[2017-07-29] MEDS: GABAPENTIN 300 MG CAPSULE (FP) PO SCH (09:58)
[2017-07-29] MEDS: DIGOXIN 0.125 MG TABLET (FP) PO SCH (09:58)
[2017-07-29] MEDS: levETIRAcetam XR 500 MG TAB PO SCH (10:40)
--- NOTE | 2017-07-29 11:26 | PN ---
Progress Note, Physician Chief Complaint: patient complaining of dysuria also complains of pushing when he needs to void will explain to patient he is already on abx CT scan report seen and discussed with patient - Current Medication List Current Medications: Active Medications Acetaminophen (Tylenol -) 650 mg PO Q4H PRN PRN Reason: FEVER Last Admin: 07/20/17 22:12 Dose: 650 mg Al Hydroxide/Mg Hydroxide (Mylanta Oral Suspension -) 30 ml PO Q6H PRN PRN Reason: INDIGESTION Last Admin: 07/27/17 03:37 Dose: 30 ml Amoxicillin (Amoxicillin -) 500 mg PO TID [facility] Last Admin: 07/29/17 05:39 Dose: 500 mg Atorvastatin Calcium (Lipitor -) 40 mg PO DAILY [facility] Last Admin: 07/29/17 09:58 Dose: 40 mg Bacitracin (Bacitracin -) 1 applic TP BID [facility] Benzocaine (Anbesol -) 1 applic MM BID PRN PRN Reason: FOR TOOTH ACHE Clopidogrel Bisulfate (Plavix -) 75 mg PO DAILY [facility] Last Admin: 07/29/17 09:58 Dose: 75 mg Digoxin (Lanoxin -) 0.125 mg PO DAILY [facility] Last Admin: 07/29/17 09:58 Dose: 0.125 mg Docusate Sodium (Colace -) 100 mg PO DAILY [facility] Last Admin: 07/29/17 09:58 Dose: 100 mg Finasteride (Proscar -) 5 mg PO DAILY [facility] Last Admin: 07/29/17 09:58 Dose: 5 mg Furosemide (Lasix -) 60 mg PO DAILY [facility] Last Admin: 07/29/17 09:58 Dose: 60 mg Gabapentin (Neurontin -) 300 mg PO DAILY [facility] Last Admin: 07/29/17 09:58 Dose: 300 mg Insulin Aspart (Novolog Vial Sliding Scale -) 1 vial SQ ACHS [facility] PRN Reason: Protocol Last Admin: 07/29/17 06:52 Dose: 8 unit Levetiracetam (Keppra Xr -) 500 mg PO DAILY [facility] Last Admin: 07/29/17 10:40 Dose: 500 mg Melatonin (Melatonin) 5 mg PO HS PRN PRN Reason: INSOMNIA Last Admin: 07/28/17 21:47 Dose: 5 mg Metoprolol Succinate (Toprol Xl -) 50 mg PO BID [facility] Last Admin: 07/29/17 09:58 Dose: 50 mg Benzocaine 10% Oral (Gel) 1 each MM Q12H PRN PRN Reason: TOOTH ACHE Last Admin: 07/29/17 05:42 Dose: 1 each Oxycodone HCl (Roxicodone -) 30 mg PO Q6H PRN PRN Reason: PAIN LEVEL 6-10 Last Admin: 07/29/17 10:40 Dose: 30 mg Pantoprazole Sodium (Protonix -) 40 mg PO DAILY [facility] Last Admin: 07/29/17 09:58 Dose: 40 mg Rivaroxaban (Xarelto -) 20 mg PO DAILY@1800 [facility] Last Admin: 07/28/17 17:04 Dose: 20 mg Senna (Senna -) 2 tab PO HS [facility] Last Admin: 07/28/17 21:54 Dose: Not Given - Objective Vital Signs: Vital Signs Temperature 98.3 F 07/29/17 11:14 Pulse Rate 91 H 07/29/17 11:14 Respiratory Rate 22 07/29/17 11:14 Blood Pressure 111/81 07/29/17 11:14 O2 Sat by Pulse Oximetry (%) 97 07/28/17 21:00 Constitutional: Yes: Calm Cardiovascular: Yes: Regular Rate and Rhythm, S1, S2 Respiratory: Yes: CTA Bilaterally Gastrointestinal: Yes: Normal Bowel Sounds, Soft Edema: Yes Neurological: Yes: Alert, Oriented Labs: CBC, BMP 07/27/17 07:30 07/29/17 07:35 INR, PTT INR 1.35 (0.82-1.09) H D 07/22/17 09:30 Problem List - Problems (1) Edema extremities Assessment/Plan: ultrasound of UE orderd no dvt diuretics lasix 60mg neurology saw patient started gabapentin and ct scan done Code(s): R60.0 - LOCALIZED EDEMA (2) Atrial fibrillation Assessment/Plan: on xarelto h/h stable Code(s): I48.91 - UNSPECIFIED ATRIAL FIBRILLATION Qualifiers: Atrial fibrillation type: chronic Qualified Code(s): I48.2 - Chronic atrial fibrillation (3) Hydronephrosis with renal and ureteral calculous obstruction Assessment/Plan: s/p left ureteral stent placement repeat sono shows no more stones or hydro urology saw the patient and cleared for discharge Code(s): N13.2 - HYDRONEPHROSIS WITH RENAL AND URETERAL CALCULOUS OBSTRUCTION (4) Enterococcus UTI Assessment/Plan: amoxiccilin two more doses left Code(s): N39.0 - URINARY TRACT INFECTION, SITE NOT SPECIFIED; B95.2 - ENTEROCOCCUS THE CAUSE OF DISEASES CLASSIFIED ELSEWHERE (5) Hematuria Assessment/Plan: cleared by urology and cardiology h/h stable on xarelto Code(s): R31.9 - HEMATURIA, UNSPECIFIED (6) Left shoulder pain Assessment/Plan: s/p injection today by ortho FU with ortho in 3 weeks Code(s): M25.512 - PAIN IN LEFT SHOULDER Assessment/Plan ambulated with PT will discharge him home later today
--- NOTE | 2017-07-29 11:44 | DS ---
Physical Examination Vital Signs: Vital Signs Temperature 98.3 F 07/29/17 11:14 Pulse Rate 91 H 07/29/17 11:14 Respiratory Rate 22 07/29/17 11:14 Blood Pressure 111/81 07/29/17 11:14 O2 Sat by Pulse Oximetry (%) 97 07/28/17 21:00 Constitutional: Yes: Calm Cardiovascular: Yes: Regular Rate and Rhythm, S1, S2 Respiratory: Yes: CTA Bilaterally Gastrointestinal: Yes: Normal Bowel Sounds, Soft, Abdomen, Obese Edema: Yes Neurological: Yes: Alert, Oriented Labs: CBC, BMP 07/27/17 07:30 07/29/17 07:35 Discharge Summary Reason For Visit: HYDRONEPHROSIS W RENAL AND URETERAL CALCULUS OBSTR Current Active Problems Atrial fibrillation (Acute) Diabetes (Acute) Enterococcus UTI (Acute) Hematuria (Acute) Hydronephrosis with renal and ureteral calculous obstruction (Acute) Left shoulder pain (Acute) Morbid obesity with BMI of 40.0-44.9, adult (Acute) Nephrolithiasis (Acute) Neuropathy (Acute) Pacemaker (Acute) Shoulder pain (Acute) Hospital Course: CHIEF COMPLAINT: left flank pain PCP: Dr. Sherwood HISTORY OF PRESENT ILLNESS: 62 yr man with pacemaker, Afib, HTN, CHF, NIDDM presents with left flank pain since 9am this morning, 12/17, nonradiating, a/w oliguria since 11am. The pain started suddenly and it was severe enough that he was unable to walk around, he stayed in bed until around 3pm when he could no longer take the pain and called his step-son to bring him to the hospital. He was in his usual state of health yesterday. He had 2 previous episodes of renal stones, 1st episode 20 yr ago and recently in Spring 2016 but did not f.u with urology or nephrology at that time, it was nonobstructing and he recalled being told he had several stones that were small and would pass on their own. denies any new medications, foods or supplements. Also endorses intermittent chest discomfort and "pacemaker bothering him" several weeks ago, a.w increased sob when climbing stairs. Has some itching at incision site. 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 denies current chest pain or SOB at rest. ER course was notable for: (1) spiral CT with obstructing renal stone on left on prelim reading (2) in hospital: s/p stent placement was on heparin drip then changed to xarelto hematuria noted but h/h stable complaining of tingling and numbness of the arms- ct scan of neck done and shows disc bulge started on gabapentin by neurology and plan is to taper off keppra dose from 750 to 500mg enterococcus uti on iv abx now amoxicclin incomplete bladder emptying start flomax stop proscar Condition: Guarded - Instructions Diet, Activity, Other Instructions: start flomax continue amoxicillin for two more days start on gabapentin 300mg daily keppra decreased to 500mg daily Referrals: Kin Willingham MD [Staff Physician] - 3 Weeks (left shoulder ) Tyrell Little MD [Staff Physician] - 2 Weeks Devorah Martínez MD [Staff Physician] - 2 Weeks (for hand tingling) Disposition: VNS/HOME HEALTH CARE - Home Medications Comprehensive Discharge Medication List: Ambulatory Orders Atorvastatin Ca [Lipitor] 40 mg PO DAILY 07/20/17 Clopidogrel Bisulfate [Clopidogrel] 75 mg PO DAILY 07/20/17 Digoxin [Lanoxin -] 0.125 mg PO DAILY 07/20/17 Finasteride 5 mg PO DAILY 07/20/17 Furosemide [Lasix] 40 mg PO ASDIR 07/20/17 Lisinopril 10 mg PO DAILY 07/20/17 Metoprolol Succinate [Toprol Xl -] 50 mg PO BID 07/20/17 Oxycodone HCl 30 mg PO Q6H PRN 07/20/17 Pantoprazole Sodium 40 mg PO DAILY 07/20/17 Potassium Chloride 20 meq PO DAILY 07/20/17 Rivaroxaban [Xarelto -] 20 mg PO HS 07/20/17 Tamsulosin HCl 0.4 mg PO DAILY 07/20/17 levETIRAcetam [Keppra Xr -] 750 mg PO DAILY 07/20/17
[2017-07-29] MEDS ORDERED: TAMSULOSIN HCL 0.4 MG CAP.ER.24H (FP) PO ONE (12:00)
[2017-07-29] MEDS: BACITRACIN 15 GM TUBE TOPICAL OINTMENT TP SCH ×2 (12:18→21:37)
[2017-07-29] MEDS ORDERED: INSULIN (NOVOLOG) ASPART 100 UNITS/ML 10ML VIAL ONE ×2 (12:28→17:42)
[2017-07-29] MEDS: RIVAROXABAN 20 MG TABLET PO SCH (17:50)
[2017-07-29] MEDS: MAG HYDROX/AL HYDROX/SIMETH 30 ML UNIT-DOSE CUP PO PRN (20:05)
[2017-07-29] MEDS: ACETAMINOPHEN 325 MG TABLET (FP) PO PRN (20:06)
[2017-07-29] MEDS: SENNOSIDES 8.6MG TABLET (FP) PO SCH (21:36)
[2017-07-29] MEDS ORDERED: PT OWN MED DRAWER 7, Y5N ONE (22:41)
[2017-07-29] MEDS: MELATONIN 5 MG TABLETS PO PRN (23:00)
[2017-07-30] MEDS: MAG HYDROX/AL HYDROX/SIMETH 30 ML UNIT-DOSE CUP PO PRN (03:21)
[2017-07-30 07:01] VITALS: BP 114/60; TEMP 98
[2017-07-30] MEDS: INSULIN SLIDING SCALE (NOVOLOG) 1 VIAL SQ SCH ×2 (07:10→11:09)
[2017-07-30] MEDS: AMOXICILLIN 500 MG CAPSULE (FP) PO SCH ×2 (08:04→13:06)
[2017-07-30] MEDS ORDERED: TAMSULOSIN HCL 0.4 MG CAP.ER.24H (FP) PO SCH (08:30)
[2017-07-30] MEDS: FUROSEMIDE 20 MG TABLET (FP) PO SCH (09:21)
[2017-07-30] MEDS: DOCUSATE SODIUM 100 MG CAPSULE (FP) PO SCH (09:21)
[2017-07-30] MEDS ORDERED: PT OWN MED DRAWER 7, Y5N ONE (09:25)
[2017-07-30] MEDS: BACITRACIN 15 GM TUBE TOPICAL OINTMENT TP SCH (09:28)
[2017-07-30] MEDS: CLOPIDOGREL BISULFATE 75 MG TABLET (FP) PO SCH (09:28)
[2017-07-30] MEDS: DIGOXIN 0.125 MG TABLET (FP) PO SCH (09:28)
[2017-07-30] MEDS: levETIRAcetam XR 500 MG TAB PO SCH (09:28)
[2017-07-30] MEDS: ATORVASTATIN CA 40 MG TABLET (FP) PO SCH (09:28)
[2017-07-30] MEDS: PANTOPRAZOLE 40 MG TABLET (FP) PO SCH (09:28)
[2017-07-30] MEDS: GABAPENTIN 300 MG CAPSULE (FP) PO SCH (09:28)
[2017-07-30 09:29] VITALS: PULSE 64
[2017-07-30] MEDS: oxyCODONE HCL 5 MG TABLET PO PRN (11:01)
[2017-07-30] MEDS ORDERED: INSULIN (NOVOLOG) ASPART 100 UNITS/ML 10ML VIAL ONE (11:07)
--- NOTE | 2017-07-30 11:25 | PN ---
Progress Note (short form) - Note Progress Note: Ortho Pt seen and examined- injection has not taken effect yet PE- + crepitus, + ttp, decr rom,nvi a/p Injection will take 3-4 days up to 1 week to begin taking effect ROM exercises ICE ok to d/c from ortho pov when medically stable f/u in the office in 3 weeks d/w Dr. Willingham
--- NOTE | 2017-07-30 12:23 | PN ---
Progress Note, Physician History of Present Illness: being discharged today - Current Medication List Current Medications: Active Medications Acetaminophen (Tylenol -) 650 mg PO Q4H PRN PRN Reason: FEVER Last Admin: 07/29/17 20:06 Dose: 650 mg Al Hydroxide/Mg Hydroxide (Mylanta Oral Suspension -) 30 ml PO Q6H PRN PRN Reason: INDIGESTION Last Admin: 07/30/17 03:21 Dose: 30 ml Amoxicillin (Amoxicillin -) 500 mg PO TID [facility] Last Admin: 07/30/17 08:04 Dose: Not Given Atorvastatin Calcium (Lipitor -) 40 mg PO DAILY [facility] Last Admin: 07/30/17 09:28 Dose: 40 mg Bacitracin (Bacitracin -) 1 applic TP BID [facility] Last Admin: 07/30/17 09:28 Dose: 1 applic Benzocaine (Anbesol -) 1 applic MM BID PRN PRN Reason: FOR TOOTH ACHE Last Admin: 07/29/17 23:01 Dose: 1 applic Clopidogrel Bisulfate (Plavix -) 75 mg PO DAILY [facility] Last Admin: 07/30/17 09:28 Dose: 75 mg Digoxin (Lanoxin -) 0.125 mg PO DAILY [facility] Last Admin: 07/30/17 09:28 Dose: 0.125 mg Docusate Sodium (Colace -) 100 mg PO DAILY [facility] Last Admin: 07/30/17 09:21 Dose: Not Given Furosemide (Lasix -) 60 mg PO DAILY [facility] Last Admin: 07/30/17 09:21 Dose: Not Given Gabapentin (Neurontin -) 300 mg PO DAILY [facility] Last Admin: 07/30/17 09:28 Dose: 300 mg Insulin Aspart (Novolog Vial Sliding Scale -) 1 vial SQ [facility]; Protocol Last Admin: 07/30/17 11:09 Dose: 6 units Levetiracetam (Keppra Xr -) 500 mg PO DAILY [facility] Last Admin: 07/30/17 09:28 Dose: 500 mg Melatonin (Melatonin) 5 mg PO HS PRN PRN Reason: INSOMNIA Last Admin: 07/29/17 23:00 Dose: 5 mg Metoprolol Succinate (Toprol Xl -) 50 mg PO BID [facility] Last Admin: 07/30/17 09:28 Dose: 50 mg Benzocaine 10% Oral (Gel) 1 each MM Q12H PRN PRN Reason: TOOTH ACHE Last Admin: 07/29/17 05:42 Dose: 1 each Oxycodone HCl (Roxicodone -) 30 mg PO Q6H PRN PRN Reason: PAIN LEVEL 6-10 Last Admin: 07/30/17 11:01 Dose: 30 mg Pantoprazole Sodium (Protonix -) 40 mg PO DAILY [facility] Last Admin: 07/30/17 09:28 Dose: 40 mg Rivaroxaban (Xarelto -) 20 mg PO DAILY@1800 [facility] Last Admin: 07/29/17 17:50 Dose: 20 mg Senna (Senna -) 2 tab PO HS [facility] Last Admin: 07/29/17 21:36 Dose: 2 tab Tamsulosin HCl (Flomax -) 0.4 mg PO DAILY@0830 [facility] Last Admin: 07/30/17 09:27 Dose: 0.4 mg - Objective Vital Signs: Vital Signs Temperature 98 F 07/30/17 06:00 Pulse Rate 64 07/30/17 09:28 Respiratory Rate 20 07/30/17 06:00 Blood Pressure 114/60 07/30/17 06:00 O2 Sat by Pulse Oximetry (%) 97 07/29/17 21:00 Labs: CBC, BMP 07/27/17 07:30 07/29/17 07:35 INR, PTT INR 1.35 (0.82-1.09) H D 07/22/17 09:30
== END 2017-07-30 14:57 | disposition home health service (06) | DRG 693 ==
LOC: JER 17:16 → JERBED 22:04 → J8W 07-21 17:42
PROVIDERS: ADMIT Family Medicine; ATTEND Family Medicine
PROC: 0TF48ZZ Fragmentation in Left Kidney Pelvis, Via Natural or Artificial Opening Endoscopic (ICD-10-PCS; 2017-07-21)
PROC: 0TH Urinary System, Insertion (ICD-10-PCS; 2017-07-21)
PROC: 0T778DZ Dilation of Left Ureter with Intraluminal Device, Via Natural or Artificial Opening Endoscopic (ICD-10-PCS; principal; 2017-07-21 13:00)
PROC: BT1FZZZ Fluoroscopy of Left Kidney, Ureter and Bladder (ICD-10-PCS; 2017-07-21 13:00)
DX: N13.2 Hydronephrosis with renal and ureteral calculous obstruction (principal); I50.33 Acute on chronic diastolic (congestive) heart failure; E87.2 Acidosis; Z68.41 Body mass index [BMI] 40.0-44.9, adult; N17.9 Acute kidney failure, unspecified; I48.91 Unspecified atrial fibrillation; I11.0 Hypertensive heart disease with heart failure; E11.9 Type 2 diabetes mellitus without complications; E78.5 Hyperlipidemia, unspecified; E66.01 Morbid (severe) obesity due to excess calories; N39.0 Urinary tract infection, site not specified; R31.9 Hematuria, unspecified; Z95.0 Presence of cardiac pacemaker; G62.9 Polyneuropathy, unspecified; I48.2 Chronic atrial fibrillation; M25.512 Pain in left shoulder; I25.10 Atherosclerotic heart disease of native coronary artery without angina pectoris; Z98.61 Coronary angioplasty status; R60.0 Localized edema; E83.42 Hypomagnesemia; N10 Acute pyelonephritis; F41.8 Other specified anxiety disorders
CPT/HCPCS: 36415; 71045-TC-FY; 72125-TC; 73030-TC-LT-FY; 74176; 76000-TC-FY; 76775-TC; 80048; 80053; 80162; 81003; 81015; 82009; 82550; 82570; 82607; 82947; 82962; 83036; 83605; 83690; 83735; 83880; 83930; 83935; 84100; 84443; 84484; 85025; 85027; 85610; 85651; 85730; 86038; 86593; 86850; 86900; 86901; 87040; 87086; 87186; 93005; 93010; 93970-TC; 94760; 97116-GP; 97161-GP; 99285-25; J1644; J7030

== ENCOUNTER 2018-03-23 17:19 | Inpatient (IN) | payer OTHER ==
[2018-03-23] MEDS ORDERED: SODIUM CHLORIDE 500 ML IV STA ×3 (18:01→22:53)
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
[2018-03-23 18:37] LABS: EOS % 2.3 % (0-4.5); HEMATOCRIT 40.3 % (35.4-49); HEMOGLOBIN 13.8 GM/dL (11.7-16.9); LYMPH % 27.8 % (8-40); MCH 31.1 pg (25.7-33.7); MCHC 34.2 g/dl (32.0-35.9); MEAN CELL VOLUME 90.9 fl (80-96); MEAN PLT VOLUME 7.4 fl (7.5-11.1); MONO % 8.7 % (3.8-10.2); NEUT % 60.2 % (42.8-82.8); PLATELET COUNT 194 K/MM3 (134-434); RBC 4.44 M/mm3 (4.00-5.60); WHITE BLOOD COUNT 5.5 K/mm3 (4.0-10.0)
[2018-03-23] MEDS ORDERED: morphine CARPU-JECT 4 MG/1 ML DISP.SYRIN IVPUSH ONE ×2 (18:45→20:03)
[2018-03-23] MEDS ORDERED: ACETAMINOPHEN 1000 MG/100 ML VIAL (NON FORMULARY) IVPB ONE ×2 (18:45→21:14)
[2018-03-23] MEDS ORDERED: METOCLOPRAMIDE HCL INJECTION 10 MG/2 ML VIAL IVPB ONE (18:45)
[2018-03-23 18:54] LABS: INR 1.74 (0.83-1.09); PROTHROMBIN TIME (PATIENT) 20.7 SEC (9.7-13.0)
--- NOTE | 2018-03-23 19:15 | PDOC ---
*Physical Exam - Vital Signs Last Vital Signs Temp Pulse Resp BP Pulse Ox 98.2 F 96 H 16 142/76 100 03/23/18 17:25 03/23/18 17:25 03/23/18 17:25 03/23/18 17:25 03/23/18 17:25 <Nirmala Murillo - Last Filed: 03/23/18 22:23> - Vital Signs Last Vital Signs Temp Pulse Resp BP Pulse Ox 98.2 F 96 H 16 142/76 100 03/23/18 17:25 03/23/18 17:25 03/23/18 17:25 03/23/18 17:25 03/23/18 17:25 - Physical Exam General Appearance: Yes: Appropriately Dressed Gastrointestinal/Abdominal: positive: Normal Bowel Sounds, Soft, Other (gross hematuria, suprapubic and cva tenderness). negative: Tender Musculoskeletal: positive: CVA Tenderness <Liz Jones - Last Filed: 03/24/18 00:49> ED Treatment Course - LABORATORY CBC & Chemistry Diagram: 03/23/18 18:22 03/23/18 20:00 - ADDITIONAL ORDERS Additional order review: Laboratory Results 03/23/18 03/23/18 03/23/18 20:15 20:00 18:22 PT with INR INR Sodium 136 Potassium 4.2 Chloride 101 Carbon Dioxide 26 Anion Gap 9 BUN 16 Creatinine 1.1 Creat Clearance w eGFR > 60 Random Glucose 237 H Calcium 8.6 Total Bilirubin 0.7 AST 32 ALT 31 Alkaline Phosphatase 92 Creatine Kinase 67 Troponin I < 0.02 B-Natriuretic Peptide 748.1 H Total Protein 7.2 Albumin 3.4 Urine Color Red Urine Appearance Cloudy Urine pH 5.5 Ur Specific [place] 1.020 Urine Protein 3+ H D Urine Glucose (UA) 3+ H Urine Ketones 1+ H Urine Blood 3+ H Urine Nitrite Positive Urine Bilirubin 3+ H Urine Urobilinogen 2.0 Ur Leukocyte Esterase 3+ H Urine WBC (Auto) >100 Urine RBC (Auto) >100 Urine Bacteria Many Blood Type Cancelled Antibody Screen Cancelled 03/23/18 03/23/18 18:22 18:22 PT with INR 20.70 H INR 1.74 H Sodium Cancelled Potassium Cancelled Chloride Cancelled Carbon Dioxide Cancelled Anion Gap Cancelled BUN Cancelled Creatinine Cancelled Creat Clearance w eGFR Cancelled Random Glucose Cancelled Calcium Cancelled Total Bilirubin Cancelled AST Cancelled ALT Cancelled Alkaline Phosphatase Cancelled Creatine Kinase Troponin I B-Natriuretic Peptide Total Protein Cancelled Albumin Cancelled Urine Color Urine Appearance Urine pH Ur Specific [place] Urine Protein Urine Glucose (UA) Urine Ketones Urine Blood Urine Nitrite Urine Bilirubin Urine Urobilinogen Ur Leukocyte Esterase Urine WBC (Auto) Urine RBC (Auto) Urine Bacteria Blood Type Antibody Screen 03/23/18 18:22 RBC 4.44 MCV 90.9 MCHC 34.2 RDW 15.0 D MPV 7.4 L Neutrophils % 60.2 Lymphocytes % 27.8 Monocytes % 8.7 Eosinophils % 2.3 Basophils % 1.0 - Medications Given in the ED: ED Medications Discontinued Medications Generic Name Dose Route Start Last Admin Trade Name Akbar PRN Reason Stop Dose Admin Acetaminophen 1,000 mg 03/23/18 18:45 03/23/18 20:42 Ofirmev Injection - IVPB 03/23/18 18:46 Not Given ONCE ONE Sodium Chloride 500 mls @ 500 mls/hr 03/23/18 18:01 03/23/18 20:41 Normal Saline - IV 03/23/18 19:00 Not Given ASDIR STA Levofloxacin 750 mg in 150 mls @ 100 mls/hr 03/23/18 18:35 03/23/18 20:41 Levaquin 750 Mg Premixed Ivpb - IVPB 03/23/18 20:04 Not Given ONCE ONE Protocol Sodium Chloride 250 mls @ 250 mls/hr 03/23/18 20:02 03/23/18 20:41 Normal Saline - IV 03/23/18 21:01 250 mls/hr ASDIR STA Administration Metoclopramide HCl 10 mg 03/23/18 18:45 03/23/18 20:42 Reglan Injection - IVPB 03/23/18 18:46 Not Given ONCE ONE Morphine Sulfate 2 mg 03/23/18 18:45 03/23/18 20:42 Morphine Injection - IVPUSH 03/23/18 18:46 Not Given ONCE ONE Morphine Sulfate 4 mg 03/23/18 20:03 03/23/18 20:41 Morphine Injection - IVPUSH 03/23/18 20:04 4 mg ONCE ONE Administration - Additional Consults Time Called: 21:15 (Paged Urology continuous improvement specialist. ) Time Called: 21:35 (2nd call Urology - Anabel) Reason/Comments: 3rd call Urology - 22:23 <Nirmala Murillo - Last Filed: 03/23/18 22:23> - LABORATORY CBC & Chemistry Diagram: 03/23/18 18:22 03/23/18 20:00 - ADDITIONAL ORDERS Additional order review: Laboratory Results 03/23/18 03/23/18 03/23/18 18:22 18:22 18:22 PT with INR 20.70 H INR 1.74 H Sodium Cancelled Potassium Cancelled Chloride Cancelled Carbon Dioxide Cancelled Anion Gap Cancelled BUN Cancelled Creatinine Cancelled Creat Clearance w eGFR Cancelled Random Glucose Cancelled Calcium Cancelled Total Bilirubin Cancelled AST Cancelled ALT Cancelled Alkaline Phosphatase Cancelled Total Protein Cancelled Albumin Cancelled Blood Type Cancelled Antibody Screen Cancelled 03/23/18 18:22 RBC 4.44 MCV 90.9 MCHC 34.2 RDW 15.0 D MPV 7.4 L Neutrophils % 60.2 Lymphocytes % 27.8 Monocytes % 8.7 Eosinophils % 2.3 Basophils % 1.0 <Liz Jones - Last Filed: 03/24/18 00:49> Medical Decision Making - Medical Decision Making 03/23/18 21:28 63-year-old male with cardiac history and obstructed stone status post stent complaining of hematuria times one day with bilateral flank pain, chills. Urology : Dr. Librado Sanchez PCP: Dr. taylor Labs blood culture cbc cmp lactic acid ua urine culture ctap 03/23/18 22:01 Dr. xuan sanchez called x 2 pending call back/. 2300: Dr. Crowley called back 03/24/18 00:26 CTAP :In comparison to a prior CT exam interval increase of left periureteral soft tissue stranding/edema is noted at the level of pelvis. The etiology of this finding is uncertain on the basis of coronary exam. No definite current U ureteral or urinary bladder calculus is noted. This finding may be on on the basis of recently passed calculus versus possible inflammatory or infectious urethritis. A left nephroureteral stent is again in place there is no hydronephrosis. Nonobstructing left renal calculi are again noted. Possible hepatic cirrhosis. Mild splenomegaly. 03/24/18 00:48 Dr. xuan sanchez recommends admission and will consult. no surgical intervention at this time. <Liz Jones - Last Filed: 03/24/18 00:49> *DC/Admit/Observation/Transfer <Nirmala Murillo - Last Filed: 03/23/18 22:23> - Discharge Dispostion Decision to Admit order: Yes <Liz Jones - Last Filed: 03/24/18 00:49> Diagnosis at time of Disposition: Gross hematuria, Cystitis, Lactic acidosis - Referrals Referrals: Akash Taylor MD [Primary Care Provider] - - Patient Instructions - Post Discharge Activity
[2018-03-23] MEDS ORDERED: SODIUM CHLORIDE 250 ML IV STA (20:02)
--- NOTE | 2018-03-23 20:24 | PDOC ---
*Physical Exam - Vital Signs Last Vital Signs Temp Pulse Resp BP Pulse Ox 98.2 F 96 H 16 142/76 100 03/23/18 17:25 03/23/18 17:25 03/23/18 17:25 03/23/18 17:25 03/23/18 17:25 ED Treatment Course - LABORATORY CBC & Chemistry Diagram: 03/23/18 18:22 03/23/18 20:00 - ADDITIONAL ORDERS Additional order review: Laboratory Results 03/23/18 03/23/18 03/23/18 18:22 18:22 18:22 PT with INR 20.70 H INR 1.74 H Sodium Cancelled Potassium Cancelled Chloride Cancelled Carbon Dioxide Cancelled Anion Gap Cancelled BUN Cancelled Creatinine Cancelled Creat Clearance w eGFR Cancelled Random Glucose Cancelled Calcium Cancelled Total Bilirubin Cancelled AST Cancelled ALT Cancelled Alkaline Phosphatase Cancelled Total Protein Cancelled Albumin Cancelled Blood Type Cancelled Antibody Screen Cancelled 03/23/18 18:22 RBC 4.44 MCV 90.9 MCHC 34.2 RDW 15.0 D MPV 7.4 L Neutrophils % 60.2 Lymphocytes % 27.8 Monocytes % 8.7 Eosinophils % 2.3 Basophils % 1.0 Medical Decision Making - Medical Decision Making 03/23/18 20:23 63 yo male on xarelto p/w gross hematuria and b/l flank pain. He is able to urinate . 03/24/18 00:35 CBC is unremarkable. Urinalysis shows greater than 100,000 WBCs, nitrate positive, many bacteria. CAT scan of abdomen and pelvis. In comparison with a prior CAT scan of 2017. There is interval increase in the left periureteral soft tissue stranding edema is noted at the level of the pelvis. The radiologist of this findings, uncertain No definite current ureteral or urinary bladder calculus is noted. Deciding median the basis of a recently passed calculus versus probable inflammatory or infectious ureteritis. A left nephroureteral stent is again seen in place. There is no hydro-ureteral nephrosis. Nonobstructing left renal calculus is again seen Mild splenomegaly. Possible hepatic cirrhosis *DC/Admit/Observation/Transfer Diagnosis at time of Disposition: Gross hematuria, Nephrolithiasis - Referrals Referrals: Akash Russell MD [Primary Care Provider] - - Patient Instructions - Post Discharge Activity
[2018-03-23 20:29] LABS: PH,URINE 5.5 (5.0-8.0); URINE APPEARANCE Cloudy; URINE BILIRUBIN 3+ (<2.0 mg/dL); URINE COLOR Red; URINE GLUCOSE (UA) 3+ (NEGATIVE); URINE KETONE 1+ (NEGATIVE); URINE LEUK ESTERASE 3+ (NEGATIVE); URINE NITRITE Positive (NEGATIVE); URINE PROTEIN 3+ (NEGATIVE)
[2018-03-23 20:34] LABS: URINE BACTERIA MANY /hpf (NONE SEEN)
[2018-03-23] MEDS ORDERED: morphine SULFATE 4 MG/ML VIAL ONE (20:35)
[2018-03-23 20:57] LABS: ALBUMIN 3.4 g/dl (3.4-5.0); ALK PHOS 92 U/L (45-117); ANION GAP 9 MMOL/L (8-16); BILIRUBIN,TOTAL 0.7 mg/dL (0.2-1); BLOOD UREA NITROGEN 16 mg/dL (7-18); CALCIUM 8.6 mg/dL (8.5-10.1); CHLORIDE 101 mmol/L (98-107); CO2 26 mmol/L (21-32); CREATININE 1.1 mg/dL (0.55-1.3); GLUCOSE,RANDOM 237 mg/dL (74-106); N-TERMINAL BNP 748.1 pg/ml (5-125); POTASSIUM 4.2 mmol/L (3.5-5.1); SGOT/AST 32 U/L (15-37); SGPT/ALT 31 U/L (13-61); SODIUM 136 mmol/L (136-145); TOT PROT 7.2 g/dl (6.4-8.2)
[2018-03-23] MEDS ORDERED: ACETAMINOPHEN INJECTION 100 ML IVPB ONE (21:48)
[2018-03-23] MEDS ORDERED: HYDROmorphone HCL CARPU-JECT 2 MG/1 ML DISP.SYRIN IVPUSH ONE (22:05)
[2018-03-23] MEDS ORDERED: HYDROmorphone HCl 2 MG/ML VIAL ONE (22:07)
[2018-03-24] MEDS ORDERED: morphine CARPU-JECT 4 MG/1 ML DISP.SYRIN IVPUSH ONE (01:20)
[2018-03-24] MEDS ORDERED: morphine SULFATE 4 MG/ML VIAL ONE (01:30)
--- NOTE | 2018-03-24 02:12 | HP ---
CHIEF COMPLAINT: Pain like when had urinary issues in past, hematuria worse than prior PCP: Dr. Russell, Dr. Monk, Dr. Librado Kwok HISTORY OF PRESENT ILLNESS: Seen and examined; thank you Dr. Russell for allowing us to participate in the care of your patient. Briefly, this is a 63 y/o CM presenting with hematuria and dysuria with some frequency; he has chronic intermittent hematuria that is very light comparatively, but today it was constant and very dark red that did not relent; he had severe dysuria with this and continues to do so. He sees Dr. Librado Chappell for urology and had a stent placed in July for an obstructing L- stone in the Ureteropelvic junction. This was complicated by him having stents t his LAD/D2 bifurcation done at [facility] back 01/10/2017. Did not have any documented continuous bladder irrigation, etc. at that time. He is also on Xarelto for his Afib. He is compliant with his medications. CT done in the ER shows interval increase of the L-periureteral soft tissue with stranding and edema noted at the level of the pelvis. The finding is likely 2/2 to, according to radiology prelim read, on recently passed calculus vs. possible infectious or inflammatory urethritis. A left nephroureteral stent is noted in place with no hydranephrosis. Nonobstructing L-renal calculi are noted. Cirrhosis noted as well with splenomegaly. He is hemodynamically stable. Positive lactate in ER; was hydrated. Recheck pending Recent Travel: PAST MEDICAL HISTORY: As documented (CAD s/p PCI, 2016, AF on xarelto, UTI, Cirrhosis with HCV, OA, Depression, nephrolithiasis, HFrEF, BPH, HTN) PAST SURGICAL HISTORY: L-upj stent placement 07/2017 Dr. Librado Kwok Social History: Denies current EtOH, tobacco abuse Family History: Allergies vancomycin Adverse Reaction (Mild, Verified 03/23/18 18:00) Itching ERYTHEMA HOME MEDICATIONS: Home Medications Medication Instructions Recorded Clopidogrel Bisulfate [Clopidogrel] 75 mg PO DAILY 07/20/17 Digoxin [Lanoxin -] 0.125 mg PO DAILY 07/20/17 Metoprolol Succinate [Toprol XL -] 50 mg PO DAILY 07/20/17 Oxycodone HCl 30 mg PO TID PRN 07/20/17 Insulin Detemir [Levemir Flextouch] 10 unit SQ ACBK #1 insuln.pen MDD 1 07/29/17 Melatonin 5 mg PO HS PRN tab 07/29/17 Rivaroxaban [Xarelto -] 20 mg PO DAILY@1800 tablet 07/29/17 Tamsulosin HCl [Flomax -] 0.4 mg PO DAILY@0830 #30 07/29/17 cap.er.24h MDD 1 Finasteride [Proscar -] 5 mg PO DAILY 09/05/17 Lisinopril [Zestril] 2.5 mg PO DAILY 09/05/17 Simvastatin 20 mg PO DAILY 09/05/17 levETIRAcetam [Keppra Xr -] 750 mg PO DAILY MDD 1 09/05/17 Cefuroxime Axetil [Ceftin -] 500 mg PO Q12H #14 tablet 09/09/17 Cefuroxime Axetil [Ceftin -] 500 mg PO Q12H #14 tablet 09/09/17 REVIEW OF SYSTEMS 10 sys ROS done and negative aside from HPI PHYSICAL EXAMINATION Vital Signs - 24 hr 03/23/18 17:25 Temperature 98.2 F Pulse Rate 96 H Respiratory 16 Rate Blood Pressure 142/76 O2 Sat by Pulse 100 Oximetry (%) GENERAL: Awake, alert, and fully oriented, in no acute distress. HEAD: Normal with no signs of trauma. EYES: Pupils equal, round and reactive to light, extraocular movements intact EARS, NOSE, THROAT: Ears normal, nares patent NECK: Normal range of motion, supple without lymphadenopathy, JVD, or masses. LUNGS: Breath sounds equal, clear to auscultation bilaterally. : Normal external genetalia with no blood at the ureteral meatus and mild suprapubic tenderness HEART: Regular rate and rhythm, normal S1 and S2 without murmur, rub or gallop. ABDOMEN: Soft, nontender, not distended, normoactive bowel sounds MUSCULOSKELETAL: Normal range of motion at all joints. No bony deformities or tenderness UPPER EXTREMITIES: 2+ pulses, warm, well-perfused. PSYCHIATRIC: Cooperative. Good eye contact. Appropriate mood and affect. SKIN: Warm, dry, normal turgor, no rashes or lesions noted, normal capillary refill. Laboratory Results - last 24 hr 03/23/18 03/23/18 03/23/18 18:22 18:22 18:22 WBC 5.5 RBC 4.44 Hgb 13.8 Hct 40.3 D MCV 90.9 MCH 31.1 MCHC 34.2 RDW 15.0 D Plt Count 194 D MPV 7.4 L Absolute Neuts (auto) 3.3 Neutrophils % 60.2 Lymphocytes % 27.8 Monocytes % 8.7 Eosinophils % 2.3 Basophils % 1.0 Nucleated RBC % 0 PT with INR 20.70 H INR 1.74 H Sodium Cancelled Potassium Cancelled Chloride Cancelled Carbon Dioxide Cancelled Anion Gap Cancelled BUN Cancelled Creatinine Cancelled Creat Clearance w eGFR Cancelled Random Glucose Cancelled Lactic Acid Calcium Cancelled Total Bilirubin Cancelled AST Cancelled ALT Cancelled Alkaline Phosphatase Cancelled Creatine Kinase Troponin I B-Natriuretic Peptide Total Protein Cancelled Albumin Cancelled Urine Color Urine Appearance Urine pH Ur Specific [place] Urine Protein Urine Glucose (UA) Urine Ketones Urine Blood Urine Nitrite Urine Bilirubin Urine Urobilinogen Ur Leukocyte Esterase Urine WBC (Auto) Urine RBC (Auto) Urine Bacteria Blood Type Antibody Screen 03/23/18 03/23/18 03/23/18 18:22 20:00 20:00 WBC RBC Hgb Hct MCV MCH MCHC RDW Plt Count MPV Absolute Neuts (auto) Neutrophils % Lymphocytes % Monocytes % Eosinophils % Basophils % Nucleated RBC % PT with INR INR Sodium 136 Potassium 4.2 Chloride 101 Carbon Dioxide 26 Anion Gap 9 BUN 16 Creatinine 1.1 Creat Clearance w eGFR > 60 Random Glucose 237 H Lactic Acid 2.5 H* Calcium 8.6 Total Bilirubin 0.7 AST 32 ALT 31 Alkaline Phosphatase 92 Creatine Kinase 67 Troponin I < 0.02 B-Natriuretic Peptide 748.1 H Total Protein 7.2 Albumin 3.4 Urine Color Urine Appearance Urine pH Ur Specific [place] Urine Protein Urine Glucose (UA) Urine Ketones Urine Blood Urine Nitrite Urine Bilirubin Urine Urobilinogen Ur Leukocyte Esterase Urine WBC (Auto) Urine RBC (Auto) Urine Bacteria Blood Type Cancelled Antibody Screen Cancelled 03/23/18 20:15 WBC RBC Hgb Hct MCV MCH MCHC RDW Plt Count MPV Absolute Neuts (auto) Neutrophils % Lymphocytes % Monocytes % Eosinophils % Basophils % Nucleated RBC % PT with INR INR Sodium Potassium Chloride Carbon Dioxide Anion Gap BUN Creatinine Creat Clearance w eGFR Random Glucose Lactic Acid Calcium Total Bilirubin AST ALT Alkaline Phosphatase Creatine Kinase Troponin I B-Natriuretic Peptide Total Protein Albumin Urine Color Red Urine Appearance Cloudy Urine pH 5.5 Ur Specific [place] 1.020 Urine Protein 3+ H D Urine Glucose (UA) 3+ H Urine Ketones 1+ H Urine Blood 3+ H Urine Nitrite Positive Urine Bilirubin 3+ H Urine Urobilinogen 2.0 Ur Leukocyte Esterase 3+ H Urine WBC (Auto) >100 Urine RBC (Auto) >100 Urine Bacteria Many Blood Type Antibody Screen EKG reviewed Prelim CT report reviewed in the ER; noted above ASSESSMENT/PLAN: Patient with a history of L-UPJ stent with Dr. Librado Kwok presents with hematuria/ dysuria found to have periureteral soft tissue stranding/edema and a positive UA. His lactate was initially positive and he was hydrated with 500cc in ER; repeat pending 1) Acute hematuria/dysuria; likely complicated cystitis with hematuria +/- ascending infection to L-ureter -Based on history/physical and UA results, imaging results -Hemodynamically stable; not septic. Doing well. -Dr. Librado Kwok aware; he will see patient in the morning. -IV Ceftriaxone (based on old cultures 07/2017 and 04/2016 when he grew EF and Proteus); followup blood and urine cultures. -Holding the patient's Plavix (PCI was 01/2017; the risk of in-stent thrombosis should be mitigated after 12 months but will still consult Dr. Monk to discuss in AM); holding xarelto as well. 2) CAD s/p PCI 01/2017 -Reviewed old records/CV consults; holding Plavix. -Held Metoprolol overnight given the positive lactate, etc. Can resume in the AM if he is clinically stable -Same as above with his lisinopril; reassess in AM 3) HTN -Resume home meds when ascertained clinically stable 4) Elevated lactate -Minor elevated with no WBC, fever, etc. qSOFA negative. -Got 500cc in the ER; rechecking lactate. If corrected will monitor clinically and hydrate PRN given his hx of CHF 5) Hx CHF -Euvolemic but got 500cc in the ER; monitor. Reviewed old CV notes. Elevated BNP noted but not SOB. Echo 02/2017 reviewed. Very careful fluid management; any additional fluids/diuresis (aside from if lactate remains elevated, of course) will be deferred to CV. 6) Hx Nephrolithiasis -Per #1 7) Cirrhosis with HCV hx -Noted; no further issues. Needs close OP followup 8) BPH -Continue tamsulosin, finasteride 9) Afib hx -Check dig level; continue dig. Hold xarelto. Resume per CV/uro 10) Back pain, chronic -Continue oxycodone. 11) OA -PRN management; avoid NSAIDs given CV hx 12) Obesity -Glass Tube Bender prior to DC; consider OP eval for SHARIF FENA -No more fluids; hydrate more if lactate not resolved -PRN replete -CV diet -As tolerated Consults: Urology, Cardiology Visit type - Emergency Visit Emergency Visit: Yes ED Registration Date: 03/24/18 Care time: The patient presented to the Emergency Department on the above date and was hospitalized for further evaluation of their emergent condition. - New Patient This patient is new to me today: Yes Date on this admission: 03/30/18 - Critical Care Critical Care patient: No
[2018-03-24] MEDS ORDERED: CEFTRIAXONE 1,000 MG in DEXTROSE 5%-WATER - 50 ML IVPB SCH (02:13)
[2018-03-24] MEDS ORDERED: CEFTRIAXONE 1 GM/50 ML BAG ONE (02:18)
[2018-03-24] MEDS ORDERED: ACETAMINOPHEN 1000 MG/100 ML VIAL (NON FORMULARY) IVPB ONE (06:01)
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
[2018-03-24] MEDS ORDERED: PATIENT'S OWN MEDICATION (NON-FORMULARY) (Oxycodone Hcl [Oxycodone Hcl] 30 MG) PO PRN ×2 (08:30→09:40)
[2018-03-24] MEDS ORDERED: DEXTROSE 5%-WATER - 50 ML IVPB ONE (09:08)
[2018-03-24] MEDS ORDERED: cefTRIAXone SODIUM 1 GM VIAL ONE (09:08)
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
[2018-03-24] MEDS ORDERED: oxyCODONE HCL 5 MG TABLET ONE (09:19)
[2018-03-24] MEDS: CEFTRIAXONE 1 GM in DEXTROSE 5%-WATER - 50 ML IVPB SCH (09:20)
[2018-03-24] MEDS: DIGOXIN 0.125 MG TABLET (FP) PO SCH (09:21)
[2018-03-24] MEDS: TAMSULOSIN HCL 0.4 MG CAP PO SCH (09:21)
[2018-03-24] MEDS: levETIRAcetam XR 750 MG TAB PO SCH (09:22)
[2018-03-24] MEDS: INSULIN (LEVEMIR) 100 UNITS/ML UNITS SQ SCH (09:23)
[2018-03-24] MEDS: FINASTERIDE 5 MG TABLET (FP) PO SCH (09:23)
[2018-03-24] MEDS ORDERED: FLU VACCINE QUAD 60 MCG/0.5 ML (MDV 18-19) IM ONE (10:00)
[2018-03-24] MEDS ORDERED: CLOPIDOGREL BISULFATE 75 MG TABLET (FP) PO SCH (10:00)
--- NOTE | 2018-03-24 10:52 | PN ---
Progress Note, Physician Chief Complaint: UTI History of Present Illness: NAD Supra pubic pain UA nitrites + UC pending Started on Ceftriaxone ID consult pending Afebrile Leuks normal - Current Medication List Current Medications: Active Medications Acetaminophen (Tylenol -) 650 mg PO Q6H PRN PRN Reason: PAIN OR FEVER Atorvastatin Calcium (Lipitor -) 10 mg PO HS [facility] Digoxin (Lanoxin -) 0.125 mg PO DAILY [facility] Last Admin: 03/24/18 09:21 Dose: 0.125 mg Finasteride (Proscar -) 5 mg PO DAILY [facility] Last Admin: 03/24/18 09:23 Dose: 5 mg Ceftriaxone Sodium 1 gm/ (Dextrose) 50 mls @ 100 mls/hr IVPB DAILY [facility] Last Admin: 03/24/18 09:20 Dose: 100 mls/hr Insulin Detemir (Levemir Vial) 10 units SQ ACBK [facility] Last Admin: 03/24/18 09:23 Dose: 10 units Levetiracetam (Keppra Xr -) 750 mg PO DAILY [facility] Last Admin: 03/24/18 09:22 Dose: 750 mg Melatonin (Melatonin) 5 mg PO HS PRN PRN Reason: INSOMNIA Metoprolol Succinate (Toprol Xl -) 25 mg PO DAILY [facility] Oxycodone HCl (Roxicodone -) 30 mg PO Q8H PRN PRN Reason: PAIN SCALE 7-9 Tamsulosin HCl (Flomax -) 0.4 mg PO DAILY@0830 [facility] Last Admin: 03/24/18 09:21 Dose: 0.4 mg - Objective Vital Signs: Vital Signs Temperature 98.0 F 03/24/18 06:00 Pulse Rate 72 03/24/18 09:21 Respiratory Rate 20 03/24/18 06:00 Blood Pressure 110/62 03/24/18 06:00 O2 Sat by Pulse Oximetry (%) 97 03/24/18 01:41 Constitutional: Yes: Well Nourished, No Distress, Calm, Obese Cardiovascular: Yes: Regular Rate and Rhythm Respiratory: Yes: Regular Gastrointestinal: Yes: Normal Bowel Sounds, Soft, Abdomen, Obese Musculoskeletal: Yes: Muscle Weakness Extremities: Yes: WNL Edema: Yes Edema: LLE: 1+, RLE: 1+ Peripheral Pulses WNL: No Integumentary: Yes: WNL Neurological: Yes: Alert, Oriented Psychiatric: Yes: Alert, Oriented Labs: CBC, BMP 03/23/18 18:22 03/23/18 20:00 INR, PTT INR 1.74 (0.83-1.09) H 03/23/18 18:22 Problem List - Problems (1) Atrial fibrillation Assessment/Plan: -Xarelto on Hold -Seen by Cardiology -Rate controlled Code(s): I48.91 - UNSPECIFIED ATRIAL FIBRILLATION Qualifiers: Atrial fibrillation type: chronic Qualified Code(s): I48.2 - Chronic atrial fibrillation (2) CAD Assessment/Plan: -Plavix on hold due to truman blood on urine -Seen by cardiology -On statin (3) Diabetes Assessment/Plan: -BGM AC HS -Diabetic/low sodium diet -RD consult -Novolog sliding scale + Levemir 10 Units AC Code(s): E11.9 - TYPE 2 DIABETES MELLITUS WITHOUT COMPLICATIONS Qualifiers: Diabetes mellitus type: type 2 (4) COPD (chronic obstructive pulmonary disease) Code(s): J44.9 - CHRONIC OBSTRUCTIVE PULMONARY DISEASE, UNSPECIFIED Qualifiers: COPD type: unspecified COPD Qualified Code(s): J44.9 - Chronic obstructive pulmonary disease, unspecified (5) Cystitis Assessment/Plan: -Seen by urology and ID -UC negative -On IV abx -Pyridium for dysuria -Increase oxycodone to 30 mg po Q6H PRN temporarily. Code(s): N30.90 - CYSTITIS, UNSPECIFIED WITHOUT HEMATURIA (6) Gross hematuria Assessment/Plan: -Color of urine improving -maintaining H/H Code(s): R31.0 - GROSS HEMATURIA Assessment/Plan See Problem list Physical therapy
[2018-03-24] MEDS ORDERED: ALBUTEROL SO4 0.083% IH SOL 2.5 MG/3 ML VIAL.NEB. NEB PRN (11:13)
[2018-03-24 11:40] LABS: BASO % 0.5 % (0-2.0); HEMATOCRIT 36.2 % (35.4-49); HEMOGLOBIN 12.1 GM/dL (11.7-16.9); LYMPH % 27.7 % (8-40); MCH 30.7 pg (25.7-33.7); MCHC 33.5 g/dl (32.0-35.9); MEAN CELL VOLUME 91.6 fl (80-96); MEAN PLT VOLUME 7.2 fl (7.5-11.1); MONO % 10.2 % (3.8-10.2); NEUT % 58.6 % (42.8-82.8); PLATELET COUNT 151 K/MM3 (134-434); RBC 3.95 M/mm3 (4.00-5.60); RDW 15.4 % (11.9-15.9); WHITE BLOOD COUNT 5.2 K/mm3 (4.0-10.0)
[2018-03-24] MEDS: metoPROLOL SUCCINATE 25 MG TAB.SR.24H (FP) PO SCH (11:45)
[2018-03-24] MEDS: INSULIN SLIDING SCALE (NOVOLOG) 1 VIAL SQ SCH ×2 (12:16→17:19)
[2018-03-24 12:22] LABS: ALK PHOS 68 U/L (45-117); ANION GAP 9 MMOL/L (8-16); BILIRUBIN,TOTAL 1.1 mg/dL (0.2-1); BLOOD UREA NITROGEN 17 mg/dL (7-18); CALCIUM 8.3 mg/dL (8.5-10.1); CHLORIDE 104 mmol/L (98-107); CO2 25 mmol/L (21-32); CREATININE 0.9 mg/dL (0.55-1.3); GLUCOSE,RANDOM 192 mg/dL (74-106); POTASSIUM 3.9 mmol/L (3.5-5.1); SGOT/AST 26 U/L (15-37); SGPT/ALT 28 U/L (13-61); SODIUM 138 mmol/L (136-145); TOT PROT 6.5 g/dl (6.4-8.2)
--- NOTE | 2018-03-24 13:55 | PN ---
Progress Note (short form) - Note Progress Note: ID consult consulted imp/reccd hemorrhagic cystitis inflammation at Left ureteral stent-urology f/u CAD continue ceftriaxone f/u cultures no history of MDRO Problem List - Problems (1) Hemorrhagic cystitis Code(s): N30.91 - CYSTITIS, UNSPECIFIED WITH HEMATURIA (2) Inflammatory reaction due to indwelling ureteral stent Code(s): T83.592A - I/I REACT D/T INDWELLING URETERAL STENT, INITIAL ENCOUNTER
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
[2018-03-24] MEDS: oxyCODONE HCL 5 MG TABLET PO PRN (17:37)
--- NOTE | 2018-03-24 18:11 | EKG ---
Test Reason : Blood Pressure : / mmHG Vent. Rate : 096 BPM Atrial Rate : 091 BPM P-R Int : 000 ms QRS Dur : 108 ms QT Int : 392 ms P-R-T Axes : 000 020 057 degrees QTc Int : 495 ms ATRIAL FIBRILLATION LOW VOLTAGE QRS INCOMPLETE RIGHT BUNDLE BRANCH BLOCK PROLONGED QT ABNORMAL ECG Confirmed by MD CAYLA, GRACE ([id number]) on 03/24/2018 6:11:41 PM Referred By: Confirmed By:GRACE KULKARNI MD
[2018-03-24] MEDS: ATORVASTATIN CA 10 MG TABLET (FP) PO SCH (23:17)
[2018-03-24] MEDS: MELATONIN 5 MG TABLETS PO PRN (23:17)
[2018-03-25] MEDS: oxyCODONE HCL 5 MG TABLET PO PRN ×3 (01:44→17:55)
[2018-03-25] MEDS: ACETAMINOPHEN 325 MG TABLET (FP) PO PRN (06:15)
[2018-03-25] MEDS: INSULIN (LEVEMIR) 100 UNITS/ML UNITS SQ SCH (06:16)
[2018-03-25] MEDS: INSULIN SLIDING SCALE (NOVOLOG) 1 VIAL SQ SCH ×3 (06:16→16:59)
[2018-03-25 08:05] LABS: BASO % 0.6 % (0-2.0); EOS % 4.2 % (0-4.5); HEMATOCRIT 35.2 % (35.4-49); HEMOGLOBIN 12.1 GM/dL (11.7-16.9); LYMPH % 34.6 % (8-40); MCH 31.5 pg (25.7-33.7); MCHC 34.4 g/dl (32.0-35.9); MEAN CELL VOLUME 91.7 fl (80-96); MEAN PLT VOLUME 7.2 fl (7.5-11.1); MONO % 10.2 % (3.8-10.2); NEUT % 50.4 % (42.8-82.8); PLATELET COUNT 151 K/MM3 (134-434); RBC 3.84 M/mm3 (4.00-5.60); WHITE BLOOD COUNT 5.2 K/mm3 (4.0-10.0)
--- NOTE | 2018-03-25 08:08 | PN ---
Progress Note (short form) - Note Progress Note: continued pelvic pain continued hematuria he is uncomfortable Vital Signs Period Temp Pulse Resp BP Sys/Mixon Pulse Ox Last 24 Hr 98.0 F-98.7 F 72-108 18-20 111-137/58-80 98-98 cor-rrr lungs clear abd soft,nt +suprapubic tendrness to palpation ext no edema labs pending Microbiology 03/23/18 20:15 Blood - Peripheral Venous Blood Culture - Preliminary NO GROWTH OBTAINED AFTER 24 HOURS, INCUBATION TO CONTINUE FOR 4 DAYS. 03/23/18 20:00 Blood - Peripheral Venous Blood Culture - Preliminary NO GROWTH OBTAINED AFTER 24 HOURS, INCUBATION TO CONTINUE FOR 4 DAYS. urine culture pending a/p hemorrhagic cystitis inflammation at Left ureteral stent-urology f/u CAD continue ceftriaxone f/u cultures Problem List - Problems (1) Hemorrhagic cystitis Code(s): N30.91 - CYSTITIS, UNSPECIFIED WITH HEMATURIA (2) Inflammatory reaction due to indwelling ureteral stent Code(s): T83.592A - I/I REACT D/T INDWELLING URETERAL STENT, INITIAL ENCOUNTER
[2018-03-25 08:23] LABS: ALBUMIN 2.8 g/dl (3.4-5.0); ALK PHOS 62 U/L (45-117); ANION GAP 5 MMOL/L (8-16); BILIRUBIN,TOTAL 0.7 mg/dL (0.2-1); BLOOD UREA NITROGEN 16 mg/dL (7-18); CALCIUM 8.4 mg/dL (8.5-10.1); CHLORIDE 104 mmol/L (98-107); CO2 28 mmol/L (21-32); CREATININE 0.9 mg/dL (0.55-1.3); GLUCOSE,RANDOM 183 mg/dL (74-106); POTASSIUM 3.9 mmol/L (3.5-5.1); SGOT/AST 28 U/L (15-37); SGPT/ALT 27 U/L (13-61); SODIUM 137 mmol/L (136-145); TOT PROT 6.2 g/dl (6.4-8.2)
[2018-03-25] MEDS ORDERED: DEXTROSE 5%-WATER - 50 ML IVPB ONE (09:06)
[2018-03-25] MEDS ORDERED: cefTRIAXone SODIUM 1 GM VIAL ONE (09:06)
[2018-03-25] MEDS ORDERED: PT OWN MED DRAWER 7, Y5N ONE ×2 (09:10→20:56)
--- NOTE | 2018-03-25 09:12 | PN ---
Progress Note, Physician Chief Complaint: comfortable Still having hematuria History of Present Illness: Denies CP or SOB - Current Medication List Current Medications: Active Medications Acetaminophen (Tylenol -) 650 mg PO Q6H PRN PRN Reason: PAIN OR FEVER Last Admin: 03/25/18 06:15 Dose: 650 mg Albuterol Sulfate (Ventolin 0.083% Nebulizer Soln -) 1 amp NEB Q6H PRN PRN Reason: SHORT OF BREATH/WHEEZING Atorvastatin Calcium (Lipitor -) 10 mg PO HS [facility] Last Admin: 03/24/18 23:17 Dose: 10 mg Digoxin (Lanoxin -) 0.125 mg PO DAILY [facility] Last Admin: 03/24/18 09:21 Dose: 0.125 mg Finasteride (Proscar -) 5 mg PO DAILY [facility] Last Admin: 03/24/18 09:23 Dose: 5 mg Ceftriaxone Sodium 1 gm/ (Dextrose) 50 mls @ 100 mls/hr IVPB DAILY [facility] Last Admin: 03/24/18 09:20 Dose: 100 mls/hr Insulin Aspart (Novolog Vial Sliding Scale -) 1 vial SQ TIDAC [facility]; Protocol Last Admin: 03/25/18 06:16 Dose: Not Given Insulin Detemir (Levemir Vial) 10 units SQ ACBK [facility] Last Admin: 03/25/18 06:16 Dose: 10 units Levetiracetam (Keppra Xr -) 750 mg PO DAILY [facility] Last Admin: 03/24/18 09:22 Dose: 750 mg Melatonin (Melatonin) 5 mg PO HS PRN PRN Reason: INSOMNIA Last Admin: 03/24/18 23:17 Dose: 5 mg Metoprolol Succinate (Toprol Xl -) 25 mg PO DAILY [facility] Last Admin: 03/24/18 11:45 Dose: 25 mg Oxycodone HCl (Roxicodone -) 30 mg PO Q8H PRN PRN Reason: PAIN SCALE 7-9 Last Admin: 03/25/18 01:44 Dose: 30 mg Tamsulosin HCl (Flomax -) 0.4 mg PO DAILY@0830 [facility] Last Admin: 03/24/18 09:21 Dose: 0.4 mg - Objective Vital Signs: Vital Signs Temperature 98.3 F 03/25/18 05:00 Pulse Rate 91 H 03/25/18 05:00 Respiratory Rate 19 03/25/18 05:00 Blood Pressure 136/71 03/25/18 05:00 O2 Sat by Pulse Oximetry (%) 98 03/24/18 21:00 Constitutional: Yes: No Distress Cardiovascular: Yes: Pulse Irregular Respiratory: Yes: CTA Bilaterally Gastrointestinal: Yes: Soft, Abdomen, Obese Edema: No Neurological: Yes: Alert, Oriented ...Motor Strength: WNL Labs: CBC, BMP 03/25/18 06:30 03/25/18 06:30 INR, PTT INR 1.74 (0.83-1.09) H 03/23/18 18:22 - ....Imaging EKG: Image Reviewed Assessment/Plan IMP: AF s/p PPM on NOAC CAD s/p PCI PAD last 01/2017 Nephrolithiasis Hemorrhagic cystitis REC: 1. Hold Xarelto temporarily while actively bleeding. 2. Further Rx as per 3. Resume single antiplatelet therpay w Plavix as soon as feasible (LAD PCI 2016) If no intervention planned, would try and resume Plavix.
[2018-03-25] MEDS: metoPROLOL SUCCINATE 25 MG TAB.SR.24H (FP) PO SCH (09:38)
[2018-03-25] MEDS: DIGOXIN 0.125 MG TABLET (FP) PO SCH (09:38)
[2018-03-25] MEDS: TAMSULOSIN HCL 0.4 MG CAP PO SCH (09:38)
[2018-03-25] MEDS: FINASTERIDE 5 MG TABLET (FP) PO SCH (09:39)
[2018-03-25] MEDS: CEFTRIAXONE 1 GM in DEXTROSE 5%-WATER - 50 ML IVPB SCH (09:39)
[2018-03-25] MEDS: levETIRAcetam XR 750 MG TAB PO SCH (09:45)
--- NOTE | 2018-03-25 14:34 | PN ---
Progress Note, Physician Chief Complaint: UTI History of Present Illness: NAD Supra pubic pain UA nitrites + UC neegative on Ceftriaxone ID consult on board Afebrile Leuks normal - Current Medication List Current Medications: Active Medications Acetaminophen (Tylenol -) 650 mg PO Q6H PRN PRN Reason: PAIN OR FEVER Last Admin: 03/25/18 06:15 Dose: 650 mg Albuterol Sulfate (Ventolin 0.083% Nebulizer Soln -) 1 amp NEB Q6H PRN PRN Reason: SHORT OF BREATH/WHEEZING Atorvastatin Calcium (Lipitor -) 10 mg PO HS [facility] Last Admin: 03/24/18 23:17 Dose: 10 mg Digoxin (Lanoxin -) 0.125 mg PO DAILY [facility] Last Admin: 03/25/18 09:38 Dose: 0.125 mg Finasteride (Proscar -) 5 mg PO DAILY [facility] Last Admin: 03/25/18 09:39 Dose: 5 mg Ceftriaxone Sodium 1 gm/ (Dextrose) 50 mls @ 100 mls/hr IVPB DAILY [facility] Last Admin: 03/25/18 09:39 Dose: 100 mls/hr Insulin Aspart (Novolog Vial Sliding Scale -) 1 vial SQ TIDAC [facility]; Protocol Last Admin: 03/25/18 11:56 Dose: 2 units Insulin Detemir (Levemir Vial) 10 units SQ ACBK [facility] Last Admin: 03/25/18 06:16 Dose: 10 units Levetiracetam (Keppra Xr -) 750 mg PO DAILY [facility] Last Admin: 03/25/18 09:45 Dose: 750 mg Melatonin (Melatonin) 5 mg PO HS PRN PRN Reason: INSOMNIA Last Admin: 03/24/18 23:17 Dose: 5 mg Metoprolol Succinate (Toprol Xl -) 25 mg PO DAILY [facility] Last Admin: 03/25/18 09:38 Dose: 25 mg Oxycodone HCl (Roxicodone -) 30 mg PO Q8H PRN PRN Reason: PAIN SCALE 7-9 Last Admin: 03/25/18 09:42 Dose: 30 mg Phenazopyridine HCl (Pyridium -) 100 mg PO TID [facility] Tamsulosin HCl (Flomax -) 0.4 mg PO DAILY@0830 [facility] Last Admin: 03/25/18 09:38 Dose: 0.4 mg - Objective Vital Signs: Vital Signs Temperature 98.0 F 03/25/18 14:12 Pulse Rate 105 H 03/25/18 14:12 Respiratory Rate 18 03/25/18 14:12 Blood Pressure 121/77 03/25/18 14:12 O2 Sat by Pulse Oximetry (%) 98 03/24/18 21:00 Constitutional: Yes: Well Nourished, No Distress, Calm, Obese Cardiovascular: Yes: Regular Rate and Rhythm Respiratory: Yes: Regular Gastrointestinal: Yes: Normal Bowel Sounds, Soft, Abdomen, Obese, Tenderness ( Supra pubic pain) Musculoskeletal: Yes: WNL Extremities: Yes: WNL Edema: No Peripheral Pulses WNL: Yes Neurological: Yes: Alert, Oriented Psychiatric: Yes: Alert, Oriented Labs: CBC, BMP 03/25/18 06:30 03/25/18 06:30 INR, PTT INR 1.74 (0.83-1.09) H 03/23/18 18:22 Problem List - Problems (1) Atrial fibrillation Assessment/Plan: -Xarelto on Hold -Seen by Cardiology -Rate controlled Code(s): I48.91 - UNSPECIFIED ATRIAL FIBRILLATION Qualifiers: Atrial fibrillation type: chronic Qualified Code(s): I48.2 - Chronic atrial fibrillation (2) CAD Assessment/Plan: -restart plavix and monitor H/H -Seen by cardiology -On statin (3) Diabetes Assessment/Plan: -BGM AC HS -Diabetic/low sodium diet -RD consult -Novolog sliding scale + Levemir 10 Units AC -Recheck A1C Code(s): E11.9 - TYPE 2 DIABETES MELLITUS WITHOUT COMPLICATIONS Qualifiers: Diabetes mellitus type: type 2 (4) COPD (chronic obstructive pulmonary disease) Code(s): J44.9 - CHRONIC OBSTRUCTIVE PULMONARY DISEASE, UNSPECIFIED Qualifiers: COPD type: unspecified COPD Qualified Code(s): J44.9 - Chronic obstructive pulmonary disease, unspecified Assessment/Plan See Problem list Physical therapy
[2018-03-25 16:35] VITALS: BMI 46.3
[2018-03-25] MEDS: PHENAZOPYRIDINE HCL 100 MG TABLET (FP) PO SCH ×2 (16:58→21:04)
[2018-03-25] MEDS: ATORVASTATIN CA 10 MG TABLET (FP) PO SCH (21:04)
[2018-03-25] MEDS: GABAPENTIN 300 MG CAPSULE (FP) PO SCH (21:04)
[2018-03-25] MEDS: MELATONIN 5 MG TABLETS PO PRN (21:05)
[2018-03-26] MEDS: oxyCODONE HCL 5 MG TABLET PO PRN ×4 (00:05→22:59)
[2018-03-26] MEDS: ACETAMINOPHEN 325 MG TABLET (FP) PO PRN (01:35)
[2018-03-26] MEDS ORDERED: PT OWN MED DRAWER 7, Y5N ONE ×2 (05:55→09:19)
[2018-03-26] MEDS: PHENAZOPYRIDINE HCL 100 MG TABLET (FP) PO SCH ×3 (05:57→21:51)
[2018-03-26] MEDS: GABAPENTIN 300 MG CAPSULE (FP) PO SCH ×3 (05:58→21:11)
[2018-03-26] MEDS: INSULIN SLIDING SCALE (NOVOLOG) 1 VIAL SQ SCH ×3 (06:00→17:57)
[2018-03-26] MEDS: INSULIN (LEVEMIR) 100 UNITS/ML UNITS SQ SCH (06:01)
[2018-03-26 07:28] LABS: BASO % 0.7 % (0-2.0); HEMOGLOBIN 11.7 GM/dL (11.7-16.9); LYMPH % 34.9 % (8-40); MCH 31.6 pg (25.7-33.7); MCHC 34.4 g/dl (32.0-35.9); MONO % 10.6 % (3.8-10.2); NEUT % 49.8 % (42.8-82.8); PLATELET COUNT 138 K/MM3 (134-434); RBC 3.69 M/mm3 (4.00-5.60); RDW 15.3 % (11.9-15.9); WHITE BLOOD COUNT 5.1 K/mm3 (4.0-10.0)
[2018-03-26] MEDS ORDERED: cefTRIAXone SODIUM 1 GM VIAL ONE (09:00)
[2018-03-26] MEDS ORDERED: DEXTROSE 5%-WATER - 50 ML IVPB ONE (09:01)
[2018-03-26 09:11] LABS: ALBUMIN 2.7 g/dl (3.4-5.0); ALK PHOS 76 U/L (45-117); ANION GAP 8 MMOL/L (8-16); BILIRUBIN,TOTAL 0.5 mg/dL (0.2-1); BLOOD UREA NITROGEN 19 mg/dL (7-18); CALCIUM 8.3 mg/dL (8.5-10.1); CHLORIDE 105 mmol/L (98-107); CO2 26 mmol/L (21-32); CREATININE 0.9 mg/dL (0.55-1.3); GLUCOSE,RANDOM 187 mg/dL (74-106); POTASSIUM 3.9 mmol/L (3.5-5.1); SGOT/AST 29 U/L (15-37); SGPT/ALT 26 U/L (13-61); SODIUM 139 mmol/L (136-145)
[2018-03-26] MEDS: metoPROLOL SUCCINATE 25 MG TAB.SR.24H (FP) PO SCH (09:21)
[2018-03-26] MEDS: TAMSULOSIN HCL 0.4 MG CAP PO SCH (09:21)
[2018-03-26] MEDS: CLOPIDOGREL BISULFATE 75 MG TABLET (FP) PO SCH (09:22)
[2018-03-26] MEDS: DIGOXIN 0.125 MG TABLET (FP) PO SCH (09:22)
[2018-03-26] MEDS: levETIRAcetam XR 750 MG TAB PO SCH (09:23)
[2018-03-26] MEDS: CEFTRIAXONE 1 GM in DEXTROSE 5%-WATER - 50 ML IVPB SCH (09:24)
[2018-03-26] MEDS: FINASTERIDE 5 MG TABLET (FP) PO SCH (09:24)
--- NOTE | 2018-03-26 09:25 | PN ---
Progress Note, Physician Chief Complaint: he reports his urine is clear - Current Medication List Current Medications: Active Medications Acetaminophen (Tylenol -) 650 mg PO Q6H PRN PRN Reason: PAIN OR FEVER Last Admin: 03/26/18 01:35 Dose: 650 mg Albuterol Sulfate (Ventolin 0.083% Nebulizer Soln -) 1 amp NEB Q6H PRN PRN Reason: SHORT OF BREATH/WHEEZING Atorvastatin Calcium (Lipitor -) 10 mg PO HS [facility] Last Admin: 03/25/18 21:04 Dose: 10 mg Clopidogrel Bisulfate (Plavix -) 75 mg PO DAILY [facility] Last Admin: 03/26/18 09:22 Dose: 75 mg Digoxin (Lanoxin -) 0.125 mg PO DAILY [facility] Last Admin: 03/26/18 09:22 Dose: 0.125 mg Finasteride (Proscar -) 5 mg PO DAILY [facility] Last Admin: 03/26/18 09:24 Dose: 5 mg Gabapentin (Neurontin -) 600 mg PO TID [facility] Last Admin: 03/26/18 05:58 Dose: 600 mg Ceftriaxone Sodium 1 gm/ (Dextrose) 50 mls @ 100 mls/hr IVPB DAILY [facility] Last Admin: 03/26/18 09:24 Dose: 100 mls/hr Insulin Aspart (Novolog Vial Sliding Scale -) 1 vial SQ TIDAC [facility]; Protocol Last Admin: 03/26/18 06:00 Dose: 2 units Insulin Detemir (Levemir Vial) 10 units SQ ACBK [facility] Last Admin: 03/26/18 06:01 Dose: 10 units Levetiracetam (Keppra Xr -) 750 mg PO DAILY [facility] Last Admin: 03/26/18 09:23 Dose: 750 mg Melatonin (Melatonin) 5 mg PO HS PRN PRN Reason: INSOMNIA Last Admin: 03/25/18 21:05 Dose: 5 mg Metoprolol Succinate (Toprol Xl -) 25 mg PO DAILY [facility] Last Admin: 03/26/18 09:21 Dose: 25 mg Oxycodone HCl (Roxicodone -) 30 mg PO Q6H PRN PRN Reason: PAIN LEVEL 6-10 Last Admin: 03/26/18 05:59 Dose: 30 mg Phenazopyridine HCl (Pyridium -) 100 mg PO TID [facility] Last Admin: 03/26/18 05:57 Dose: 100 mg Tamsulosin HCl (Flomax -) 0.4 mg PO DAILY@0830 [facility] Last Admin: 03/26/18 09:21 Dose: 0.4 mg - Objective Vital Signs: Vital Signs Temperature 98.4 F 03/26/18 05:00 Pulse Rate 84 03/26/18 09:22 Respiratory Rate 20 03/26/18 05:00 Blood Pressure 122/63 03/26/18 05:00 O2 Sat by Pulse Oximetry (%) 96 03/25/18 21:00 Constitutional: Yes: No Distress, Calm Cardiovascular: Yes: Pulse Irregular Respiratory: Yes: CTA Bilaterally (no rales) Gastrointestinal: Yes: Soft, Abdomen, Obese Edema: No Neurological: Yes: Alert, Oriented Labs: CBC, BMP 03/26/18 06:30 03/26/18 06:30 INR, PTT INR 1.74 (0.83-1.09) H 03/23/18 18:22 Assessment/Plan IMP: AF s/p PPM on NOAC CAD s/p PCI PAD last 01/2017 Nephrolithiasis Hemorrhagic cystitis REC: 1. Hold Xarelto temporarily while actively bleeding. 2. Further Rx as per 3. Plavix resumed.
--- NOTE | 2018-03-26 12:09 | PN ---
Progress Note, Physician Chief Complaint: UTI History of Present Illness: NAD Supra pubic pain UA nitrites + UC negative On Ceftriaxone ID consult Afebrile Leuks normal - Current Medication List Current Medications: Active Medications Acetaminophen (Tylenol -) 650 mg PO Q6H PRN PRN Reason: PAIN OR FEVER Last Admin: 03/26/18 01:35 Dose: 650 mg Albuterol Sulfate (Ventolin 0.083% Nebulizer Soln -) 1 amp NEB Q6H PRN PRN Reason: SHORT OF BREATH/WHEEZING Atorvastatin Calcium (Lipitor -) 10 mg PO HS [facility] Last Admin: 03/25/18 21:04 Dose: 10 mg Clopidogrel Bisulfate (Plavix -) 75 mg PO DAILY [facility] Last Admin: 03/26/18 09:22 Dose: 75 mg Digoxin (Lanoxin -) 0.125 mg PO DAILY [facility] Last Admin: 03/26/18 09:22 Dose: 0.125 mg Finasteride (Proscar -) 5 mg PO DAILY [facility] Last Admin: 03/26/18 09:24 Dose: 5 mg Gabapentin (Neurontin -) 600 mg PO TID [facility] Last Admin: 03/26/18 05:58 Dose: 600 mg Ceftriaxone Sodium 1 gm/ (Dextrose) 50 mls @ 100 mls/hr IVPB DAILY [facility] Last Admin: 03/26/18 09:24 Dose: 100 mls/hr Insulin Aspart (Novolog Vial Sliding Scale -) 1 vial SQ TIDAC [facility]; Protocol Last Admin: 03/26/18 11:58 Dose: 2 units Insulin Detemir (Levemir Vial) 10 units SQ ACBK [facility] Last Admin: 03/26/18 06:01 Dose: 10 units Levetiracetam (Keppra Xr -) 750 mg PO DAILY [facility] Last Admin: 03/26/18 09:23 Dose: 750 mg Melatonin (Melatonin) 5 mg PO HS PRN PRN Reason: INSOMNIA Last Admin: 03/25/18 21:05 Dose: 5 mg Metoprolol Succinate (Toprol Xl -) 25 mg PO DAILY [facility] Last Admin: 03/26/18 09:21 Dose: 25 mg Oxycodone HCl (Roxicodone -) 30 mg PO Q6H PRN PRN Reason: PAIN LEVEL 6-10 Last Admin: 03/26/18 11:59 Dose: 30 mg Phenazopyridine HCl (Pyridium -) 100 mg PO TID [facility] Last Admin: 03/26/18 05:57 Dose: 100 mg Tamsulosin HCl (Flomax -) 0.4 mg PO DAILY@0830 [facility] Last Admin: 03/26/18 09:21 Dose: 0.4 mg - Objective Vital Signs: Vital Signs Temperature 98.4 F 03/26/18 09:00 Pulse Rate 84 03/26/18 09:22 Respiratory Rate 18 03/26/18 09:00 Blood Pressure 132/55 L 03/26/18 09:00 O2 Sat by Pulse Oximetry (%) 96 03/25/18 21:00 Constitutional: Yes: Well Nourished, No Distress, Calm Cardiovascular: Yes: Regular Rate and Rhythm Respiratory: Yes: Regular Gastrointestinal: Yes: Normal Bowel Sounds, Abdomen, Obese, Tenderness (diffuse , supra pubic) Musculoskeletal: Yes: Muscle Weakness Edema: No Peripheral Pulses WNL: Yes Neurological: Yes: Alert, Oriented Psychiatric: Yes: Alert, Oriented Labs: CBC, BMP 03/26/18 06:30 03/26/18 06:30 INR, PTT INR 1.74 (0.83-1.09) H 03/23/18 18:22 Problem List - Problems (1) Atrial fibrillation Assessment/Plan: -Xarelto on Hold -Seen by Cardiology -Rate controlled Code(s): I48.91 - UNSPECIFIED ATRIAL FIBRILLATION Qualifiers: Atrial fibrillation type: chronic Qualified Code(s): I48.2 - Chronic atrial fibrillation (2) CAD Assessment/Plan: -Plavix on hold due to truman blood on urine -Seen by cardiology -On statin (3) Diabetes Assessment/Plan: -BGM AC HS -Diabetic/low sodium diet -RD consult -Novolog sliding scale + Levemir 10 Units AC Code(s): E11.9 - TYPE 2 DIABETES MELLITUS WITHOUT COMPLICATIONS Qualifiers: Diabetes mellitus type: type 2 (4) COPD (chronic obstructive pulmonary disease) Code(s): J44.9 - CHRONIC OBSTRUCTIVE PULMONARY DISEASE, UNSPECIFIED Qualifiers: COPD type: unspecified COPD Qualified Code(s): J44.9 - Chronic obstructive pulmonary disease, unspecified (5) Cystitis Assessment/Plan: -Seen by urology and ID -UC negative -On IV abx -Pyridium for dysuria has helped -Increase oxycodone to 30 mg po Q6H PRN temporarily. -Also Gabapentin increased to 600 mg po TID Code(s): N30.90 - CYSTITIS, UNSPECIFIED WITHOUT HEMATURIA (6) Gross hematuria Assessment/Plan: -Color of urine improving -maintaining H/H Code(s): R31.0 - GROSS HEMATURIA Assessment/Plan See Problem list Physical therapy
--- NOTE | 2018-03-26 12:33 | PN ---
Progress Note, Physician History of Present Illness: OOB in chair c/o intermittant sharp suprapubic and penile pain Denies dysuria Reports urine less hemorrhagic No F/C WBC WNL Cultures negative - Current Medication List Current Medications: Active Medications Acetaminophen (Tylenol -) 650 mg PO Q6H PRN PRN Reason: PAIN OR FEVER Last Admin: 03/26/18 01:35 Dose: 650 mg Albuterol Sulfate (Ventolin 0.083% Nebulizer Soln -) 1 amp NEB Q6H PRN PRN Reason: SHORT OF BREATH/WHEEZING Atorvastatin Calcium (Lipitor -) 10 mg PO HS [facility] Last Admin: 03/25/18 21:04 Dose: 10 mg Clopidogrel Bisulfate (Plavix -) 75 mg PO DAILY [facility] Last Admin: 03/26/18 09:22 Dose: 75 mg Digoxin (Lanoxin -) 0.125 mg PO DAILY [facility] Last Admin: 03/26/18 09:22 Dose: 0.125 mg Finasteride (Proscar -) 5 mg PO DAILY [facility] Last Admin: 03/26/18 09:24 Dose: 5 mg Gabapentin (Neurontin -) 600 mg PO TID [facility] Last Admin: 03/26/18 05:58 Dose: 600 mg Ceftriaxone Sodium 1 gm/ (Dextrose) 50 mls @ 100 mls/hr IVPB DAILY [facility] Last Admin: 03/26/18 09:24 Dose: 100 mls/hr Insulin Aspart (Novolog Vial Sliding Scale -) 1 vial SQ TIDAC [facility]; Protocol Last Admin: 03/26/18 11:58 Dose: 2 units Insulin Detemir (Levemir Vial) 10 units SQ ACBK [facility] Last Admin: 03/26/18 06:01 Dose: 10 units Levetiracetam (Keppra Xr -) 750 mg PO DAILY [facility] Last Admin: 03/26/18 09:23 Dose: 750 mg Melatonin (Melatonin) 5 mg PO HS PRN PRN Reason: INSOMNIA Last Admin: 03/25/18 21:05 Dose: 5 mg Metoprolol Succinate (Toprol Xl -) 25 mg PO DAILY [facility] Last Admin: 03/26/18 09:21 Dose: 25 mg Oxycodone HCl (Roxicodone -) 30 mg PO Q6H PRN PRN Reason: PAIN LEVEL 6-10 Last Admin: 03/26/18 11:59 Dose: 30 mg Phenazopyridine HCl (Pyridium -) 100 mg PO TID [facility] Last Admin: 03/26/18 05:57 Dose: 100 mg Tamsulosin HCl (Flomax -) 0.4 mg PO DAILY@0830 [facility] Last Admin: 03/26/18 09:21 Dose: 0.4 mg - Objective Vital Signs: Vital Signs Temperature 98.4 F 03/26/18 09:00 Pulse Rate 84 03/26/18 09:22 Respiratory Rate 18 03/26/18 09:00 Blood Pressure 132/55 L 03/26/18 09:00 O2 Sat by Pulse Oximetry (%) 96 03/25/18 21:00 Constitutional: Yes: No Distress, Obese Cardiovascular: Yes: Regular Rate and Rhythm, S1, S2 Respiratory: Yes: CTA Bilaterally Gastrointestinal: Yes: Normal Bowel Sounds, Soft, Abdomen, Obese. 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
[2018-03-26] MEDS: RIVAROXABAN 20 MG TABLET PO SCH (17:58)
[2018-03-26] MEDS: AMOX TR/POT CLAV 875MG/125MG TABLETS (FP) PO SCH (17:58)
[2018-03-26] MEDS: ATORVASTATIN CA 10 MG TABLET (FP) PO SCH (21:11)
[2018-03-26] MEDS: MELATONIN 5 MG TABLETS PO PRN (21:55)
[2018-03-27] MEDS: GABAPENTIN 300 MG CAPSULE (FP) PO SCH ×3 (06:05→22:09)
[2018-03-27] MEDS: PHENAZOPYRIDINE HCL 100 MG TABLET (FP) PO SCH ×3 (06:05→22:10)
[2018-03-27] MEDS: oxyCODONE HCL 5 MG TABLET PO PRN ×3 (06:06→18:09)
[2018-03-27] MEDS: INSULIN (LEVEMIR) 100 UNITS/ML UNITS SQ SCH (06:09)
[2018-03-27] MEDS: INSULIN SLIDING SCALE (NOVOLOG) 1 VIAL SQ SCH ×3 (06:10→17:00)
[2018-03-27 07:31] LABS: BASO % 0.7 % (0-2.0); EOS % 3.2 % (0-4.5); HEMATOCRIT 34.4 % (35.4-49); HEMOGLOBIN 11.9 GM/dL (11.7-16.9); LYMPH % 33.7 % (8-40); MCH 31.7 pg (25.7-33.7); MCHC 34.6 g/dl (32.0-35.9); MEAN CELL VOLUME 91.7 fl (80-96); MEAN PLT VOLUME 7.1 fl (7.5-11.1); MONO % 11.4 % (3.8-10.2); PLATELET COUNT 159 K/MM3 (134-434); RBC 3.75 M/mm3 (4.00-5.60); RDW 14.8 % (11.9-15.9); WHITE BLOOD COUNT 4.9 K/mm3 (4.0-10.0)
[2018-03-27 08:00] LABS: ALBUMIN 2.8 g/dl (3.4-5.0); ALK PHOS 110 U/L (45-117); ANION GAP 6 MMOL/L (8-16); BILIRUBIN,TOTAL 0.3 mg/dL (0.2-1); BLOOD UREA NITROGEN 18 mg/dL (7-18); CALCIUM 8.1 mg/dL (8.5-10.1); CHLORIDE 102 mmol/L (98-107); CO2 29 mmol/L (21-32); SGOT/AST 31 U/L (15-37); SGPT/ALT 28 U/L (13-61); SODIUM 136 mmol/L (136-145); TOT PROT 6.2 g/dl (6.4-8.2)
[2018-03-27 08:26] LABS: GLUCOSE,RANDOM 307 mg/dL (74-106)
[2018-03-27] MEDS ORDERED: PT OWN MED DRAWER 7, Y5N ONE (09:20)
[2018-03-27] MEDS: TAMSULOSIN HCL 0.4 MG CAP PO SCH (09:23)
[2018-03-27] MEDS: CLOPIDOGREL BISULFATE 75 MG TABLET (FP) PO SCH (09:23)
[2018-03-27] MEDS: AMOX TR/POT CLAV 875MG/125MG TABLETS (FP) PO SCH ×2 (09:23→17:03)
[2018-03-27] MEDS: levETIRAcetam XR 750 MG TAB PO SCH (09:24)
[2018-03-27] MEDS: DIGOXIN 0.125 MG TABLET (FP) PO SCH (09:24)
[2018-03-27] MEDS: metoPROLOL SUCCINATE 25 MG TAB.SR.24H (FP) PO SCH (09:25)
[2018-03-27] MEDS: FINASTERIDE 5 MG TABLET (FP) PO SCH (09:25)
--- NOTE | 2018-03-27 10:45 | DS ---
Physical Examination Vital Signs: Vital Signs Temperature 98.4 F 03/27/18 06:00 Pulse Rate 75 03/27/18 09:24 Respiratory Rate 18 03/27/18 06:00 Blood Pressure 107/59 L 03/27/18 06:00 O2 Sat by Pulse Oximetry (%) 96 03/25/18 21:00 Findings/Remarks: Seen and examined; thank you Dr. Russell for allowing us to participate in the care of your patient. Briefly, this is a 63 y/o CM presenting with hematuria and dysuria with some frequency; he has chronic intermittent hematuria that is very light comparatively, but today it was constant and very dark red that did not relent; he had severe dysuria with this and continues to do so. He sees Dr. Librado Chappell for urology and had a stent placed in July for an obstructing L- stone in the Ureteropelvic junction. This was complicated by him having stents t his LAD/D2 bifurcation done at [facility] back 01/10/2017. Did not have any documented continuous bladder irrigation, etc. at that time. He is also on Xarelto for his Afib. He is compliant with his medications. CT done in the ER shows interval increase of the L-periureteral soft tissue with stranding and edema noted at the level of the pelvis. The finding is likely 2/2 to, according to radiology prelim read, on recently passed calculus vs. possible infectious or inflammatory urethritis. A left nephroureteral stent is noted in place with no hydranephrosis. Nonobstructing L-renal calculi are noted. Cirrhosis noted as well with splenomegaly. He is hemodynamically stable. Positive lactate in ER; was hydrated. Constitutional: Yes: Well Nourished, No Distress, Calm, Obese Cardiovascular: Yes: Regular Rate and Rhythm Respiratory: Yes: Regular Gastrointestinal: Yes: Normal Bowel Sounds, Soft, Abdomen, Obese, Tenderness ( supra pubic-improved) Musculoskeletal: Yes: WNL Extremities: Yes: WNL Edema: No Peripheral Pulses WNL: Yes Neurological: Yes: Alert, Oriented Psychiatric: Yes: Alert, Oriented Labs: CBC, BMP 03/27/18 06:30 03/27/18 06:30 Discharge Summary Reason For Visit: GROSS HEMATURAI CYSTITIS LACTIC ACIDOSIS Current Active Problems Cystitis (Acute) Gross hematuria (Acute) Hemorrhagic cystitis (Acute) Inflammatory reaction due to indwelling ureteral stent (Acute) Lactic acidosis (Acute) Nephrolithiasis (Acute) Hospital Course: Laboratory Last Values WBC 4.9 K/mm3 (4.0-10.0) 03/27/18 06:30 RBC 3.75 M/mm3 (4.00-5.60) L 03/27/18 06:30 Hgb 11.9 GM/dL (11.7-16.9) 03/27/18 06:30 Hct 34.4 % (35.4-49) L 03/27/18 06:30 MCV 91.7 fl (80-96) 03/27/18 06:30 MCH 31.7 pg (25.7-33.7) 03/27/18 06:30 MCHC 34.6 g/dl (32.0-35.9) 03/27/18 06:30 RDW 14.8 % (11.9-15.9) 03/27/18 06:30 Plt Count 159 K/MM3 (134-434) 03/27/18 06:30 MPV 7.1 fl (7.5-11.1) L 03/27/18 06:30 Absolute Neuts (auto) 2.5 K/mm3 (1.5-8.0) 03/27/18 06:30 Neutrophils % 51.0 % (42.8-82.8) 03/27/18 06:30 Lymphocytes % 33.7 % (8-40) 03/27/18 06:30 Monocytes % 11.4 % (3.8-10.2) H 03/27/18 06:30 Eosinophils % 3.2 % (0-4.5) 03/27/18 06:30 Basophils % 0.7 % (0-2.0) 03/27/18 06:30 Nucleated RBC % 0 % (0-0) 03/27/18 06:30 PT with INR 20.70 SEC (9.7-13.0) H 03/23/18 18:22 INR 1.74 (0.83-1.09) H 03/23/18 18:22 Sodium 136 mmol/L (136-145) 03/27/18 06:30 Potassium 4.0 mmol/L (3.5-5.1) 03/27/18 06:30 Chloride 102 mmol/L (98-107) 03/27/18 06:30 Carbon Dioxide 29 mmol/L (21-32) 03/27/18 06:30 Anion Gap 6 MMOL/L (8-16) L 03/27/18 06:30 BUN 18 mg/dL (7-18) 03/27/18 06:30 Creatinine 1.0 mg/dL (0.55-1.3) 03/27/18 06:30 Creat Clearance w eGFR > 60 (>60) 03/27/18 06:30 POC Glucometer 242 UNITS (80-120) 03/24/18 12:15 Random Glucose 307 mg/dL (74-106) H* 03/27/18 06:30 Hemoglobin A1c % 10.1 % (4.2-6.3) H 03/25/18 06:30 Lactic Acid 1.2 mmol/L (0.4-2.0) 03/24/18 10:45 Calcium 8.1 mg/dL (8.5-10.1) L 03/27/18 06:30 Total Bilirubin 0.3 mg/dL (0.2-1) 03/27/18 06:30 AST 31 U/L (15-37) 03/27/18 06:30 ALT 28 U/L (13-61) 03/27/18 06:30 Alkaline Phosphatase 110 U/L (45-117) 03/27/18 06:30 Creatine Kinase 67 IU/L (26-308) 03/23/18 20:00 Troponin I < 0.02 ng/ml (0.00-0.05) 03/23/18 20:00 B-Natriuretic Peptide 748.1 pg/ml (5-125) H 03/23/18 20:00 Total Protein 6.2 g/dl (6.4-8.2) L 03/27/18 06:30 Albumin 2.8 g/dl (3.4-5.0) L 03/27/18 06:30 Urine Color Red 03/23/18 20:15 Urine Appearance Cloudy 03/23/18 20:15 Urine pH 5.5 (5.0-8.0) 03/23/18 20:15 Ur Specific [place] 1.020 (1.010-1.035) 03/23/18 20:15 Urine Protein 3+ (NEGATIVE) H D 03/23/18 20:15 Urine Glucose (UA) 3+ (NEGATIVE) H 03/23/18 20:15 Urine Ketones 1+ (NEGATIVE) H 03/23/18 20:15 Urine Blood 3+ (NEGATIVE) H 03/23/18 20:15 Urine Nitrite Positive (NEGATIVE) 03/23/18 20:15 Urine Bilirubin 3+ (<2.0 mg/dL) H 03/23/18 20:15 Urine Urobilinogen 2.0 mg/dL (0.2-1.0) 03/23/18 20:15 Ur Leukocyte Esterase 3+ (NEGATIVE) H 03/23/18 20:15 Urine WBC (Auto) >100 /hpf (3-5) 03/23/18 20:15 Urine RBC (Auto) >100 /hpf (0-3) 03/23/18 20:15 Urine Bacteria Many /hpf (NONE SEEN) 03/23/18 20:15 Blood Type Cancelled 03/23/18 18:22 Antibody Screen Cancelled 03/23/18 18:22 Microbiology 03/23/18 20:15 Blood - Peripheral Venous Blood Culture - Preliminary NO GROWTH OBTAINED AFTER 72 HOURS, INCUBATION TO CONTINUE FOR 2 DAYS. 03/23/18 20:00 Blood - Peripheral Venous Blood Culture - Preliminary NO GROWTH OBTAINED AFTER 72 HOURS, INCUBATION TO CONTINUE FOR 2 DAYS. 03/23/18 20:15 Urine - Urine Clean Catch Urine Culture - Final Condition: Stable - Instructions Referrals: Akash Russell MD [Primary Care Provider] - Tyrell Little MD [Staff Physician] - Disposition: [facility]HOME HEALTH CARE - Home Medications Comprehensive Discharge Medication List: Ambulatory Orders Clopidogrel Bisulfate [Clopidogrel] 75 mg PO DAILY 07/20/17 Digoxin [Lanoxin -] 0.125 mg PO DAILY 07/20/17 Metoprolol Succinate [Toprol XL -] 50 mg PO DAILY 07/20/17 Oxycodone HCl 30 mg PO TID PRN 07/20/17 Insulin Detemir [Levemir Flextouch] 10 unit SQ ACBK #1 insuln.pen MDD 1 Melatonin 5 mg PO HS PRN tab 07/29/17 Rivaroxaban [Xarelto -] 20 mg PO DAILY@1800 tablet 07/29/17 Tamsulosin HCl [Flomax -] 0.4 mg PO DAILY@0830 #30 cap.er.24h MDD 1 07/29/17 Finasteride [Proscar -] 5 mg PO DAILY 09/05/17 Lisinopril [Zestril] 2.5 mg PO DAILY 09/05/17 Simvastatin 20 mg PO DAILY 09/05/17 levETIRAcetam [Keppra Xr -] 750 mg PO DAILY MDD 1 09/05/17 Gabapentin [Neurontin] 600 mg PO HS 03/25/18 Amox-Tr/K Cl [Augmentin 875-125mg Tablet -] 1 tab PO BID@0800,1730 #14 tablet Gabapentin 600 mg PO TID #90 tablet 03/26/18 Phenazopyridine HCl [Pyridium -] 100 mg PO TID #90 tablet 03/26/18
[2018-03-27] MEDS ORDERED: diphenhydrAMINE HCL 25 MG CAPSULE (FP) PO ONE (15:44)
[2018-03-27] MEDS: RIVAROXABAN 20 MG TABLET PO SCH (18:10)
[2018-03-27] MEDS: MELATONIN 5 MG TABLETS PO PRN (22:09)
[2018-03-27] MEDS: ATORVASTATIN CA 10 MG TABLET (FP) PO SCH (22:09)
[2018-03-28] MEDS: oxyCODONE HCL 5 MG TABLET PO PRN ×3 (00:05→12:13)
[2018-03-28] MEDS: ACETAMINOPHEN 325 MG TABLET (FP) PO PRN (03:34)
[2018-03-28] MEDS: GABAPENTIN 300 MG CAPSULE (FP) PO SCH ×2 (05:46→13:11)
[2018-03-28] MEDS: PHENAZOPYRIDINE HCL 100 MG TABLET (FP) PO SCH ×2 (05:46→13:11)
[2018-03-28] MEDS: INSULIN SLIDING SCALE (NOVOLOG) 1 VIAL SQ SCH ×2 (06:15→12:23)
[2018-03-28] MEDS: INSULIN (LEVEMIR) 100 UNITS/ML UNITS SQ SCH (06:15)
[2018-03-28 07:39] LABS: ALBUMIN 2.8 g/dl (3.4-5.0); ALK PHOS 120 U/L (45-117); ANION GAP 7 MMOL/L (8-16); BILIRUBIN,TOTAL 0.5 mg/dL (0.2-1); BLOOD UREA NITROGEN 20 mg/dL (7-18); CALCIUM 8.4 mg/dL (8.5-10.1); CHLORIDE 100 mmol/L (98-107); CO2 28 mmol/L (21-32); CREATININE 0.9 mg/dL (0.55-1.3); GLUCOSE,RANDOM 283 mg/dL (74-106); POTASSIUM 4.2 mmol/L (3.5-5.1); SGOT/AST 32 U/L (15-37); SGPT/ALT 32 U/L (13-61); SODIUM 136 mmol/L (136-145); TOT PROT 6.2 g/dl (6.4-8.2)
[2018-03-28 08:21] LABS: BASO % 0.8 % (0-2.0); EOS % 3.4 % (0-4.5); HEMATOCRIT 33.5 % (35.4-49); HEMOGLOBIN 11.6 GM/dL (11.7-16.9); LYMPH % 34.9 % (8-40); MCH 31.7 pg (25.7-33.7); MCHC 34.6 g/dl (32.0-35.9); MEAN CELL VOLUME 91.7 fl (80-96); MEAN PLT VOLUME 7.2 fl (7.5-11.1); MONO % 11.2 % (3.8-10.2); NEUT % 49.7 % (42.8-82.8); PLATELET COUNT 148 K/MM3 (134-434); RBC 3.65 M/mm3 (4.00-5.60); RDW 15.1 % (11.9-15.9); WHITE BLOOD COUNT 4.9 K/mm3 (4.0-10.0)
--- NOTE | 2018-03-28 09:09 | PN ---
Progress Note, Physician Chief Complaint: UTI History of Present Illness: NAD Supra pubic pain UA nitrites + UC negative On Augmentin BID ID consult Afebrile Leuks normal Awaiting dc today - Current Medication List Current Medications: Active Medications Acetaminophen (Tylenol -) 650 mg PO Q6H PRN PRN Reason: PAIN OR FEVER Last Admin: 03/28/18 03:34 Dose: 650 mg Albuterol Sulfate (Ventolin 0.083% Nebulizer Soln -) 1 amp NEB Q6H PRN PRN Reason: SHORT OF BREATH/WHEEZING Amoxicillin/Clavulanate Potassium (Augmentin - 875mg Tablet) 1 tab PO BID@0800, 1730 [facility] Last Admin: 03/27/18 17:03 Dose: 1 tab Atorvastatin Calcium (Lipitor -) 10 mg PO HS [facility] Last Admin: 03/27/18 22:09 Dose: 10 mg Clopidogrel Bisulfate (Plavix -) 75 mg PO DAILY [facility] Last Admin: 03/27/18 09:23 Dose: 75 mg Digoxin (Lanoxin -) 0.125 mg PO DAILY [facility] Last Admin: 03/27/18 09:24 Dose: 0.125 mg Finasteride (Proscar -) 5 mg PO DAILY [facility] Last Admin: 03/27/18 09:25 Dose: 5 mg Gabapentin (Neurontin -) 600 mg PO TID [facility] Last Admin: 03/28/18 05:46 Dose: 600 mg Insulin Aspart (Novolog Vial Sliding Scale -) 1 vial SQ TIDAC [facility]; Protocol Last Admin: 03/28/18 06:15 Dose: 6 units Insulin Detemir (Levemir Vial) 10 units SQ ACBK [facility] Last Admin: 03/28/18 06:15 Dose: 10 units Levetiracetam (Keppra Xr -) 750 mg PO DAILY [facility] Last Admin: 03/27/18 09:24 Dose: 750 mg Melatonin (Melatonin) 5 mg PO HS PRN PRN Reason: INSOMNIA Last Admin: 03/27/18 22:09 Dose: 5 mg Metoprolol Succinate (Toprol Xl -) 25 mg PO DAILY [facility] Last Admin: 03/27/18 09:25 Dose: 25 mg Oxycodone HCl (Roxicodone -) 30 mg PO Q6H PRN PRN Reason: PAIN LEVEL 6-10 Last Admin: 03/28/18 05:51 Dose: 30 mg Phenazopyridine HCl (Pyridium -) 100 mg PO TID [facility] Last Admin: 03/28/18 05:46 Dose: 100 mg Rivaroxaban (Xarelto -) 20 mg PO DAILY@1800 [facility] Last Admin: 03/27/18 18:10 Dose: 20 mg Tamsulosin HCl (Flomax -) 0.4 mg PO DAILY@0830 [facility] Last Admin: 03/27/18 09:23 Dose: 0.4 mg Zinc Acetate/Diphenhydramine (Benadryl 2% Cream) 1 applic TP BID [facility] Last Admin: 03/27/18 22:09 Dose: 1 applic - Objective Vital Signs: Vital Signs Temperature 98.1 F 03/28/18 06:00 Pulse Rate 91 H 03/28/18 06:00 Respiratory Rate 18 03/28/18 06:00 Blood Pressure 126/66 03/28/18 06:00 O2 Sat by Pulse Oximetry (%) 96 03/25/18 21:00 Constitutional: Yes: Well Nourished, No Distress, Calm, Obese Cardiovascular: Yes: Regular Rate and Rhythm Respiratory: Yes: Regular Gastrointestinal: Yes: Normal Bowel Sounds, Soft, Abdomen, Obese, Tenderness ( supra pubic) Genitourinary: Yes: WNL Musculoskeletal: Yes: Muscle Weakness Edema: No Peripheral Pulses WNL: Yes Neurological: Yes: Alert, Oriented Psychiatric: Yes: Alert, Oriented Labs: CBC, BMP 03/28/18 06:30 03/28/18 06:30 INR, PTT INR 1.74 (0.83-1.09) H 03/23/18 18:22 Problem List - Problems (1) Atrial fibrillation Assessment/Plan: -Xarelto restarted -H/H stable -Seen by Cardiology -Rate controlled Code(s): I48.91 - UNSPECIFIED ATRIAL FIBRILLATION Qualifiers: Atrial fibrillation type: chronic Qualified Code(s): I48.2 - Chronic atrial fibrillation (2) CAD Assessment/Plan: -Plavix and xarelto restarted -H/H stable -Seen by cardiology -On statin (3) Diabetes Assessment/Plan: -BGM AC HS -Diabetic/low sodium diet -RD consult -Novolog sliding scale + Levemir 10 Units AC Code(s): E11.9 - TYPE 2 DIABETES MELLITUS WITHOUT COMPLICATIONS Qualifiers: Diabetes mellitus type: type 2 (4) COPD (chronic obstructive pulmonary disease) Code(s): J44.9 - CHRONIC OBSTRUCTIVE PULMONARY DISEASE, UNSPECIFIED Qualifiers: COPD type: unspecified COPD Qualified Code(s): J44.9 - Chronic obstructive pulmonary disease, unspecified (5) Cystitis Assessment/Plan: -Seen by urology and ID -UC negative -On augmentin bid x 7 days -Pyridium 200 mg tid prn for dysuria has helped -Increase oxycodone to 30 mg po Q6H PRN temporarily. -Also Gabapentin increased to 600 mg po TID Code(s): N30.90 - CYSTITIS, UNSPECIFIED WITHOUT HEMATURIA (6) Gross hematuria Assessment/Plan: -Color of urine improving -maintaining H/H Code(s): R31.0 - GROSS HEMATURIA Assessment/Plan See Problem list Physical therapy
[2018-03-28] MEDS: DIGOXIN 0.125 MG TABLET (FP) PO SCH (09:30)
[2018-03-28] MEDS: CLOPIDOGREL BISULFATE 75 MG TABLET (FP) PO SCH (09:30)
[2018-03-28] MEDS: metoPROLOL SUCCINATE 25 MG TAB.SR.24H (FP) PO SCH (09:30)
[2018-03-28] MEDS: levETIRAcetam XR 750 MG TAB PO SCH (09:31)
[2018-03-28] MEDS: AMOX TR/POT CLAV 875MG/125MG TABLETS (FP) PO SCH (09:31)
[2018-03-28] MEDS: TAMSULOSIN HCL 0.4 MG CAP PO SCH (09:31)
[2018-03-28] MEDS: FINASTERIDE 5 MG TABLET (FP) PO SCH (09:32)
[2018-03-28] MEDS ORDERED: PT OWN MED DRAWER 7, Y5N ONE (10:53)
[2018-03-28 13:19] VITALS: BP 119/62; PULSE 91; TEMP 98.2
--- NOTE | 2018-03-28 13:36 | PN ---
Progress Note, Physician Chief Complaint: Pt sitting up at bedside; son (Forrest) is present. Pt has no chest pain or dyspnea ; no change in chronic leg swelling. "Bladder and prostate" felt as if they were being pushed on when he weas sitting in a charr. He asks when he should have PPM checked (placed one year ago). History of Present Illness: 63 y/o white man presenting with hematuria and dysuria with some frequency; he has chronic intermittent hematuria that is very light comparatively, but today it was constant and very dark red that did not relent; he had severe dysuria with this and continues to do so. He sees Dr. Librado Chappell for urology and had a stent placed in July for an obstructing L-stone in the Ureteropelvic junction. This was complicated by him having stents t his LAD/D2 bifurcation done at [facility] back 01/10/2017. Did not have any documented continuous bladder irrigation , etc. at that time. He is also on Xarelto for his Afib. He is compliant with his medications. CT done in the ER shows interval increase of the L- periureteral soft tissue with stranding and edema noted at the level of the pelvis. The finding is likely 2/2 to, according to radiology prelim read, on recently passed calculus vs. possible infectious or inflammatory urethritis. A left nephroureteral stent is noted in place with no hydranephrosis. Nonobstructing L-renal calculi are noted. Cirrhosis noted as well with splenomegaly. He is hemodynamically stable. Positive lactate in ER; was hydrated. Recheck pending - Current Medication List Current Medications: Active Medications Acetaminophen (Tylenol -) 650 mg PO Q6H PRN PRN Reason: PAIN OR FEVER Last Admin: 03/28/18 03:34 Dose: 650 mg Albuterol Sulfate (Ventolin 0.083% Nebulizer Soln -) 1 amp NEB Q6H PRN PRN Reason: SHORT OF BREATH/WHEEZING Amoxicillin/Clavulanate Potassium (Augmentin - 875mg Tablet) 1 tab PO BID@0800, 1730 [facility] Last Admin: 03/28/18 09:31 Dose: 1 tab Atorvastatin Calcium (Lipitor -) 10 mg PO HS [facility] Last Admin: 03/27/18 22:09 Dose: 10 mg Clopidogrel Bisulfate (Plavix -) 75 mg PO DAILY [facility] Last Admin: 03/28/18 09:30 Dose: 75 mg Digoxin (Lanoxin -) 0.125 mg PO DAILY [facility] Last Admin: 03/28/18 09:30 Dose: 0.125 mg Finasteride (Proscar -) 5 mg PO DAILY [facility] Last Admin: 03/28/18 09:32 Dose: 5 mg Gabapentin (Neurontin -) 600 mg PO TID [facility] Last Admin: 03/28/18 13:11 Dose: 600 mg Insulin Aspart (Novolog Vial Sliding Scale -) 1 vial SQ TIDAC [facility]; Protocol Last Admin: 03/28/18 12:23 Dose: 6 units Insulin Detemir (Levemir Vial) 10 units SQ ACBK [facility] Last Admin: 03/28/18 06:15 Dose: 10 units Levetiracetam (Keppra Xr -) 750 mg PO DAILY [facility] Last Admin: 03/28/18 09:31 Dose: 750 mg Melatonin (Melatonin) 5 mg PO HS PRN PRN Reason: INSOMNIA Last Admin: 03/27/18 22:09 Dose: 5 mg Metoprolol Succinate (Toprol Xl -) 25 mg PO DAILY [facility] Last Admin: 03/28/18 09:30 Dose: 25 mg Oxycodone HCl (Roxicodone -) 30 mg PO Q6H PRN PRN Reason: PAIN LEVEL 6-10 Last Admin: 03/28/18 12:13 Dose: 30 mg Phenazopyridine HCl (Pyridium -) 100 mg PO TID [facility] Last Admin: 03/28/18 13:11 Dose: 100 mg Rivaroxaban (Xarelto -) 20 mg PO DAILY@1800 [facility] Last Admin: 03/27/18 18:10 Dose: 20 mg Tamsulosin HCl (Flomax -) 0.4 mg PO DAILY@0830 [facility] Last Admin: 03/28/18 09:31 Dose: 0.4 mg Zinc Acetate/Diphenhydramine (Benadryl 2% Cream) 1 applic TP BID [facility] Last Admin: 03/28/18 09:31 Dose: 1 applic - Objective Vital Signs: Vital Signs Temperature 98.2 F 03/28/18 10:00 Pulse Rate 91 H 03/28/18 10:00 Respiratory Rate 18 03/28/18 10:00 Blood Pressure 119/62 03/28/18 10:00 O2 Sat by Pulse Oximetry (%) 96 01/16/19 21:00 Constitutional: Yes: Calm, Obese Eyes: Yes: WNL HENT: Yes: WNL Neck: Yes: WNL Cardiovascular: Yes: WNL Respiratory: Yes: WNL Gastrointestinal: Yes: Soft, Abdomen, Obese ...Rectal Exam: Yes: Deferred Genitourinary: No: Anuria Breast(s): Yes: WNL Musculoskeletal: Yes: Joint Stiffness, Muscle Weakness Extremities: Yes: Cool Edema: Yes Peripheral Pulses WNL: Yes Neurological: Yes: Alert, Oriented, Weakness Psychiatric: Yes: WNL Labs: CBC, BMP 03/28/18 06:30 03/28/18 06:30 INR, PTT INR 1.74 (0.83-1.09) H 03/23/18 18:22 Abnormal Lab Results 03/28/18 03/28/18 06:30 06:30 RBC 3.65 L Hgb 11.6 L Hct 33.5 L MPV 7.2 L Monocytes % 11.2 H Anion Gap 7 L BUN 20 H Random Glucose 283 H Calcium 8.4 L Alkaline Phosphatase 120 H Total Protein 6.2 L Albumin 2.8 L Problem List - Problems (1) Morbid obesity with BMI of 45.0-49.9, adult Code(s): E66.01 - MORBID (SEVERE) OBESITY DUE TO EXCESS CALORIES; Z68.42 - BODY MASS INDEX (BMI) 45.0-49.9, ADULT (2) Gross hematuria Assessment/Plan: f/u with Code(s): R31.0 - GROSS HEMATURIA (3) Hemorrhagic cystitis Code(s): N30.91 - CYSTITIS, UNSPECIFIED WITH HEMATURIA (4) Acute on chronic diastolic (congestive) heart failure Code(s): I50.33 - ACUTE ON CHRONIC DIASTOLIC (CONGESTIVE) HEART FAILURE (5) Back pain with radiation Code(s): M54.9 - DORSALGIA, UNSPECIFIED (6) Pacemaker Assessment/Plan: placed a year ago; f/u interrogation as outpt (pt says it was never checked since placement). Code(s): Z95.0 - PRESENCE OF CARDIAC PACEMAKER (7) Sedentary lifestyle Assessment/Plan: Pt has unremitting pain in left shoulder; arthritis with chronic swelling of both knees (which limits his ability to walk). Will need extensive physical Rx, ideally with attention to aerobic exercise he can do despite his limitations. Diet change, weight loss is also essential. Code(s): Z91.89 - OTH PERSONAL RISK FACTORS, NOT ELSEWHERE CLASSIFIED
== END 2018-03-28 13:57 | disposition home health service (06) | DRG 699 ==
LOC: JER 17:19 → JERBED 03-24 00:49 → J8W 03-24 04:00
PROVIDERS: ADMIT Internal Medicine; ATTEND Family Medicine
DX: T83.592A Infection and inflammatory reaction due to indwelling ureteral stent, initial encounter (principal); Z68.42 Body mass index [BMI] 45.0-49.9, adult; E87.2 Acidosis; I50.30 Unspecified diastolic (congestive) heart failure; N30.91 Cystitis, unspecified with hematuria; R31.0 Gross hematuria; E11.9 Type 2 diabetes mellitus without complications; I48.2 Chronic atrial fibrillation; I25.10 Atherosclerotic heart disease of native coronary artery without angina pectoris; Z98.61 Coronary angioplasty status; E66.01 Morbid (severe) obesity due to excess calories; Z95.0 Presence of cardiac pacemaker; M54.9 Dorsalgia, unspecified; N40.0 Benign prostatic hyperplasia without lower urinary tract symptoms; N20.0 Calculus of kidney; D73.2 Chronic congestive splenomegaly; Y83.9 Surgical procedure, unspecified as the cause of abnormal reaction of the patient, or of later complication, without mention of misadventure at the time of the procedure
CPT/HCPCS: 36415; 74176-TC; 80053; 81003; 81015; 82550; 82962; 83036; 83605; 83880; 84484; 85025; 85610; 87040; 87086; 90688; 93005; 93010; 97116-GP; 97161-GP; 99282-25; G0008; J0131

== ENCOUNTER 2018-06-08 06:09 | Day surgery (SDC) | payer OTHER ==
[2018-06-05 11:50] VITALS: BMI 48.8
[2018-06-08] MEDS ORDERED: INSULIN REGULAR HUMAN 100 UNITS/ML *VIAL SQ ONE (07:45)
[2018-06-08] MEDS ORDERED: LIDOCAINE HCL 2% JELLY 10 ML CARTRIDGE ONE (08:23)
[2018-06-08] MEDS ORDERED: PROPOFOL 20 ML ONE ×2 (08:24→08:27)
[2018-06-08] MEDS ORDERED: SUCCINYLCHOLINE CHLORIDE 200 MG/10 ML VIAL ONE (08:25)
--- NOTE | 2018-06-08 08:51 | OP ---
Operative Note - Note: Operative Date: 06/08/18 Pre-Operative Diagnosis: left renal stone Operation: cystoscopy and left ureteral stent removal Post-Operative Diagnosis: Same as Pre-op Surgeon: Tyrell Little Anesthesia: General Specimens Removed: left ureteral stent Operative Report Dictated: Yes
[2018-06-08] MEDS ORDERED: ONDANSETRON 4 MG/2 ML VIAL IVPUSH PRN (09:19)
[2018-06-08] MEDS ORDERED: oxyCODONE HCL 5 MG TABLET ONE ×2 (10:10→15:16)
[2018-06-08] MEDS: oxyCODONE HCL 5 MG TABLET PO PRN ×3 (10:10→19:42)
--- NOTE | 2018-06-08 16:23 | HP ---
Admitting History and Physical - Primary Care Physician PCP: Akash Russell - Admission Chief Complaint: s/p ureteral stent removal History of Present Illness: Patient is a 63 y/o male with past medical history of BPH, HTN, HLD, Afib (on xarelto), DM, Seizures. Patient is s/p ureteral stent removal. Due to patient history of using blood thinners patient will be admitted to observation to monitor for hematuria or bleeding. Denies chest pain, abdominal pain, SOB, nausea, vomiting. 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 (craniotomy s/p evacuation [facility] on keppra ) Cardiovascular: Yes: AFIB, CAD (prior PCI, last 12/2016 at [place], [facility]AD [facility]), CHF (chronic primarily diastolic), HTN, Other Pulmonary: Yes: COPD Gastrointestinal: Yes: Other (6 years earlier -negative EGD and colonoscopy) Hepatobiliary: Yes: Cirrhosis, Hepatitis C, Other (patient does not admit to cirrhosis (normal liver on ct scan does have splenomegaly)) Renal/: Yes: BPH, Renal Calculi Psych: Yes: Anxiety, Depression Musculoskeletal: Yes: Chronic low back pain, Osteoarthritis Endocrine: Yes: Diabetes Mellitus - Past Surgical History Past Surgical History: Yes: Colonoscopy, Upper Endoscopy - Smoking History Smoking history: Former smoker Have you smoked in the past 12 months: No Aproximately how many cigarettes per day: 0 If you are a former smoker, when did you quit?: 25 years - Alcohol/Substance Use Hx Alcohol Use: No History of Substance Use: reports: None - Social History ADL: Family Assistance Occupation: worked in [employer] with exposures History of Recent Travel: No Home Medications - Allergies Allergies/Adverse Reactions: Allergies Allergy/AdvReac Type Severity Reaction Status Date / Time vancomycin AdvReac Mild Itching Verified 03/23/18 18:00 - Home Medications Home Medications: Ambulatory Orders Clopidogrel Bisulfate [Clopidogrel] 75 mg PO DAILY 07/20/17 Digoxin [Lanoxin -] 0.125 mg PO DAILY 07/20/17 Metoprolol Succinate [Toprol XL -] 50 mg PO DAILY 07/20/17 Oxycodone HCl 30 mg PO TID PRN 07/20/17 Insulin Detemir [Levemir Flextouch] 10 unit SQ ACBK #1 insuln.pen MDD 1 Melatonin 5 mg PO HS PRN tab 07/29/17 Rivaroxaban [Xarelto -] 20 mg PO DAILY@1800 tablet 07/29/17 Tamsulosin HCl [Flomax -] 0.4 mg PO DAILY@0830 #30 cap.er.24h MDD 1 07/29/17 Finasteride [Proscar -] 5 mg PO DAILY 09/05/17 Lisinopril [Zestril] 2.5 mg PO DAILY 09/05/17 Simvastatin 20 mg PO DAILY 09/05/17 levETIRAcetam [Keppra Xr -] 750 mg PO DAILY MDD 1 09/05/17 Gabapentin [Neurontin] 600 mg PO HS 03/25/18 Amox-Tr/K Cl [Augmentin 875-125mg Tablet -] 1 tab PO BID@0800,1730 #14 tablet Gabapentin 600 mg PO TID #90 tablet 03/26/18 Phenazopyridine HCl [Pyridium -] 100 mg PO TID #90 tablet 03/26/18 Oxycodone HCl [Roxicodone] 30 mg PO QID PRN #40 tablet MDD 8 03/27/18 Family Disease History - Family Disease History Family Disease History: Heart Disease: Sister ([place] in her early 60s), [place]: Brother , Other: Mother (P.E. post hip surgery) Review of Systems - Review of Systems Constitutional: reports: No Symptoms Eyes: reports: No Symptoms HENT: reports: No Symptoms Neck: reports: No Symptoms Cardiovascular: reports: No Symptoms Respiratory: reports: No Symptoms Gastrointestinal: reports: No Symptoms Genitourinary: reports: Hematuria Breasts: reports: No Symptoms Reported Musculoskeletal: reports: Muscle Weakness Integumentary: reports: No Symptoms Neurological: reports: No Symptoms Endocrine: reports: No Symptoms Hematology/Lymphatic: reports: No Symptoms Psychiatric: reports: No Symptoms Physical Examination Vital Signs: Vital Signs Temperature 98.6 F 06/08/18 09:55 Pulse Rate 100 H 06/08/18 14:15 Respiratory Rate 18 06/08/18 14:15 Blood Pressure 132/62 06/08/18 14:15 O2 Sat by Pulse Oximetry (%) 100 06/08/18 14:15 Constitutional: Yes: No Distress, Calm, Obese Eyes: Yes: Conjunctiva Clear HENT: Yes: Atraumatic Cardiovascular: Yes: Regular Rate and Rhythm Respiratory: Yes: Regular, CTA Bilaterally Gastrointestinal: Yes: Normal Bowel Sounds, Soft, Abdomen, Obese Musculoskeletal: Yes: Muscle Weakness Extremities: Yes: WNL Edema: Yes Neurological: Yes: Alert, Oriented Psychiatric: Yes: Alert, Oriented Problem List - Problems (1) Acute on chronic diastolic (congestive) heart failure Assessment/Plan: -Continue with lasix -1L fluid restriction -daily weights Code(s): I50.33 - ACUTE ON CHRONIC DIASTOLIC (CONGESTIVE) HEART FAILURE (2) Atrial fibrillation Assessment/Plan: -continue xarelto and digoxin Code(s): I48.91 - UNSPECIFIED ATRIAL FIBRILLATION (3) BPH (benign prostatic hypertrophy) Assessment/Plan: -continue with tamsulosin Code(s): N40.0 - BENIGN PROSTATIC HYPERPLASIA WITHOUT LOWER URINRY TRACT SYMP (4) CAD Assessment/Plan: -continue with plavix (5) Diabetes Assessment/Plan: -BGM ACHS -Levemir and ISS -Diabetic diet Code(s): E11.9 - TYPE 2 DIABETES MELLITUS WITHOUT COMPLICATIONS (6) HTN (hypertension) Assessment/Plan: -continue with metoprolol -low Na diet Code(s): I10 - ESSENTIAL (PRIMARY) HYPERTENSION (7) Seizure Assessment/Plan: -continue keppra daily Code(s): R56.9 - UNSPECIFIED CONVULSIONS (8) Encounter for removal of ureteral stent Assessment/Plan: -urology on board -monitor for hematuria -pain management Code(s): Z46.6 - ENCOUNTER FOR FITTING AND ADJUSTMENT OF URINARY DEVICE Assessment/Plan see problem list B/L SCD's
[2018-06-08] MEDS ORDERED: INSULIN SLIDING SCALE (NOVOLOG) 1 VIAL SQ SCH (16:30)
[2018-06-08] MEDS: LACTATED RINGERS SOLUTION 1,000 ML IV SCH (16:54)
[2018-06-08] MEDS: INSULIN SLIDING SCALE (NOVOLOG) 1 VIAL SQ SCH ×2 (17:52→23:31)
[2018-06-08] MEDS: RIVAROXABAN 20 MG TABLET PO SCH (17:55)
--- NOTE | 2018-06-08 17:58 | OP ---
DATE OF OPERATION: 06/08/2018 PREOPERATIVE DIAGNOSIS: Left renal cell. POSTOPERATIVE DIAGNOSIS: Left renal cell. PROCEDURE: Cystoscopy and left ureteral stent removal. ATTENDING SURGEON: Yovanny Leon MD ANESTHESIA: General. OPERATION: The patient was brought to the operating room and placed in the supine position on the operating room table. The patient has a history of a 10-mm left renal stone. The patient is status post left stent placement. The patient is on anticoagulation therapy for multiple medical problems. The patient is high risk for extracorporeal shock wave lithotripsy or ureteroscopic laser lithotripsy. The patient was offered a replacement stent; however, the patient has opted not to have a stent and to go forward with the stone in the kidney. The patient understands the risks and benefits of not maintaining a stent. The patient also understands the risks and benefits of attempts to lithotripsy the stone given his medical condition. Patient accepts all risks and benefits. He decided to have the stent removed and the surgeon will go forward to remove the stent. The patient is placed in the dorsal lithotomy position with anesthesia administered. He is prepped and draped in the usual sterile manner. Cystoscopy was performed and the left ureteral stent was seen and removed with a grasping forceps. No evidence of stone or neoplasm within the bladder is noted. Patient tolerated the procedure very well. No complications noted. DISPOSITION: Patient was to the recovery room. YOVANNY LEON M.D. /[id number]
[2018-06-08 20:48] LABS: URINE APPEARANCE Clear; URINE BILIRUBIN Negative (NEGATIVE); URINE COLOR Yellow; URINE GLUCOSE (UA) 2+ (NEGATIVE); URINE KETONE Negative (NEGATIVE); URINE LEUK ESTERASE Negative (NEGATIVE); URINE NITRITE Negative (NEGATIVE); URINE PROTEIN Negative (NEGATIVE); URINE UROBILINOGEN 0.2 mg/dL (0.2-1.0)
[2018-06-08] MEDS ORDERED: PT OWN MED DRAWER 7, Y5N ONE (21:47)
[2018-06-08 21:54] LABS: URINE RBC MANY /hpf (0-4)
[2018-06-08] MEDS: INSULIN (LEVEMIR) 100 UNITS/ML UNITS SQ SCH (22:03)
[2018-06-08] MEDS: GABAPENTIN 300 MG CAPSULE (FP) PO SCH (22:03)
[2018-06-09] MEDS: oxyCODONE HCL 5 MG TABLET PO PRN ×4 (02:18→20:27)
[2018-06-09] MEDS: GABAPENTIN 300 MG CAPSULE (FP) PO SCH ×3 (05:57→21:58)
[2018-06-09] MEDS: INSULIN SLIDING SCALE (NOVOLOG) 1 VIAL SQ SCH ×4 (06:05→21:58)
[2018-06-09] MEDS ORDERED: PT OWN MED DRAWER 7, Y5N ONE ×2 (06:39→18:57)
[2018-06-09 07:01] LABS: BASO % 0.7 % (0-2.0); EOS % 5.2 % (0-4.5); HEMATOCRIT 31.3 % (35.4-49); HEMOGLOBIN 10.2 GM/dL (11.7-16.9); LYMPH % 34.4 % (8-40); MCHC 32.6 g/dl (32.0-35.9); MEAN PLT VOLUME 7.2 fl (7.5-11.1); MONO % 10.3 % (3.8-10.2); NEUT % 49.4 % (42.8-82.8); PLATELET COUNT 206 K/MM3 (134-434); RDW 15.9 % (11.9-15.9); WHITE BLOOD COUNT 5.3 K/mm3 (4.0-10.0)
[2018-06-09 07:51] LABS: ALBUMIN 2.8 g/dl (3.4-5.0); ALK PHOS 108 U/L (45-117); ANION GAP 6 MMOL/L (8-16); BILIRUBIN,TOTAL 0.5 mg/dL (0.2-1); BLOOD UREA NITROGEN 17 mg/dL (7-18); CALCIUM 8.4 mg/dL (8.5-10.1); CHLORIDE 101 mmol/L (98-107); CO2 26 mmol/L (21-32); CREATININE 0.9 mg/dL (0.55-1.3); GLUCOSE,RANDOM 260 mg/dL (74-106); MAGNESIUM 1.8 mg/dL (1.8-2.4); PHOSPHOROUS 3.2 mg/dL (2.5-4.9); POTASSIUM 4.2 mmol/L (3.5-5.1); SGOT/AST 41 U/L (15-37); SGPT/ALT 35 U/L (13-61); SODIUM 134 mmol/L (136-145); TOT PROT 6.8 g/dl (6.4-8.2)
[2018-06-09] MEDS: TAMSULOSIN HCL 0.4 MG CAP PO SCH (08:23)
[2018-06-09] MEDS: PANTOPRAZOLE 40 MG TABLET (FP) PO SCH (10:55)
[2018-06-09] MEDS: levETIRAcetam 500 MG TABLET (FP) PO SCH (10:55)
[2018-06-09] MEDS: DIGOXIN 0.125 MG TABLET (FP) PO SCH (10:55)
[2018-06-09] MEDS: CLOPIDOGREL BISULFATE 75 MG TABLET (FP) PO SCH (10:55)
[2018-06-09] MEDS ORDERED: INSULIN (NOVOLOG) ASPART 100 UNITS/ML 10ML VIAL ONE (12:02)
[2018-06-09] MEDS: LACTATED RINGERS SOLUTION 1,000 ML IV SCH (14:22)
--- NOTE | 2018-06-09 16:37 | PATH ---
Surgical Pathology Report Patient Name: ARSENIO KHAN Med. Rec. #: [id number] /Age/Gender: 1955 (Age: 63) / M Account: [id number] Location: [facility] MED/SURG Taken: 06/08/2018 Received: 06/08/2018 Reported: 06/09/2018 Physicians: Tyrell Little Specimen(s) Received REMOVED URETERAL STENT Clinical History Left renal stent Final Diagnosis URETERAL STENT, REMOVAL: URETERAL STENT. MACROSCOPIC DIAGNOSIS. Electronically Signed Minerva Tirado M.D. Gross Description Received fresh labeled "removed ureteral stent," is a 36 cm in length green, coiled portion of tubing, consistent with a ureteral stent. No soft tissue is present. No sections are submitted, gross only. /06/08/2018 saudi06/08/2018
--- NOTE | 2018-06-09 16:47 | DS ---
Physical Examination Vital Signs: Vital Signs Temperature 98.4 F 06/09/18 14:00 Pulse Rate 101 H 06/09/18 14:00 Respiratory Rate 22 H 06/09/18 14:00 Blood Pressure 127/72 06/09/18 14:00 O2 Sat by Pulse Oximetry (%) 97 06/09/18 11:00 Findings/Remarks: C/O NECK STIFFNESS NO CP OR SOB Constitutional: Yes: Mild Distress Eyes: Yes: WNL Neck: Yes: Other Cardiovascular: Yes: Pulse Irregular Respiratory: Yes: On Nasal O2, Other Gastrointestinal: Yes: Soft Renal/: Yes: Other Extremities: Yes: Other Peripheral Pulses WNL: No Integumentary: Yes: WNL Wound/Incision: Yes: Clean/Dry Neurological: Yes: Pre-Existing Deficit Psychiatric: Yes: Other Labs: CBC, BMP 06/09/18 06:00 06/09/18 06:00 Discharge Summary Reason For Visit: CYSTITIS, UNSPECIFIED WITH HEMATURIA Current Active Problems Encounter for removal of ureteral stent (Acute) Procedures: Principal: CYSTOSCOPY, URETRAL STENT CHANGE Hospital Course: FLANK HEMATUREA, ABD PAIN ADMITTED FOR OBSERVATION, IV PAIN MEDS AND IV FLUIDS Condition: Good - Instructions Diet, Activity, Other Instructions: increase fluids continue anti-coagulation Disposition: HOME - Home Medications Comprehensive Discharge Medication List: Ambulatory Orders Clopidogrel Bisulfate [Clopidogrel] 75 mg PO DAILY 07/20/17 Digoxin [Lanoxin -] 0.125 mg PO DAILY 07/20/17 Metoprolol Succinate [Toprol XL -] 50 mg PO DAILY 07/20/17 Oxycodone HCl 30 mg PO TID PRN 07/20/17 Insulin Detemir [Levemir Flextouch] 10 unit SQ ACBK #1 insuln.pen MDD 1 Melatonin 5 mg PO HS PRN tab 07/29/17 Rivaroxaban [Xarelto -] 20 mg PO DAILY@1800 tablet 07/29/17 Tamsulosin HCl [Flomax -] 0.4 mg PO DAILY@0830 #30 cap.er.24h MDD 1 07/29/17 Finasteride [Proscar -] 5 mg PO DAILY 09/05/17 Lisinopril [Zestril] 2.5 mg PO DAILY 09/05/17 Simvastatin 20 mg PO DAILY 09/05/17 levETIRAcetam [Keppra Xr -] 750 mg PO DAILY MDD 1 09/05/17 Gabapentin [Neurontin] 600 mg PO HS 03/25/18 Amox-Tr/K Cl [Augmentin 875-125mg Tablet -] 1 tab PO BID@0800,1730 #14 tablet Gabapentin 600 mg PO TID #90 tablet 03/26/18 Phenazopyridine HCl [Pyridium -] 100 mg PO TID #90 tablet 03/26/18 Oxycodone HCl [Roxicodone] 30 mg PO QID PRN #40 tablet MDD 8 03/27/18
[2018-06-09] MEDS ORDERED: diazePAM 5 MG TABLET PO ONE (17:00)
[2018-06-09] MEDS: LIDOCAINE 5% TOPICAL PATCH TP SCH (18:59)
[2018-06-09] MEDS: RIVAROXABAN 20 MG TABLET PO SCH (18:59)
[2018-06-09] MEDS: INSULIN (LEVEMIR) 100 UNITS/ML UNITS SQ SCH (21:59)
[2018-06-10] MEDS: oxyCODONE HCL 5 MG TABLET PO PRN ×3 (02:43→15:11)
[2018-06-10] MEDS: INSULIN SLIDING SCALE (NOVOLOG) 1 VIAL SQ SCH ×2 (07:10→12:25)
[2018-06-10] MEDS: GABAPENTIN 300 MG CAPSULE (FP) PO SCH ×2 (07:11→13:53)
[2018-06-10] MEDS: TAMSULOSIN HCL 0.4 MG CAP PO SCH (08:50)
[2018-06-10] MEDS ORDERED: PT OWN MED DRAWER 7, Y5N ONE ×3 (09:17→18:35)
[2018-06-10] MEDS: levETIRAcetam 500 MG TABLET (FP) PO SCH (09:39)
[2018-06-10] MEDS: DIGOXIN 0.125 MG TABLET (FP) PO SCH (09:39)
[2018-06-10] MEDS: PANTOPRAZOLE 40 MG TABLET (FP) PO SCH (09:39)
[2018-06-10] MEDS: CLOPIDOGREL BISULFATE 75 MG TABLET (FP) PO SCH (09:40)
[2018-06-10] MEDS: LIDOCAINE 5% TOPICAL PATCH TP SCH (09:40)
[2018-06-10] MEDS: LACTATED RINGERS SOLUTION 1,000 ML IV SCH (10:59)
[2018-06-10 14:36] VITALS: BP 132/64; PULSE 82; TEMP 99.4
[2018-06-10] MEDS ORDERED: LIDOCAINE PATCH REMOVAL MC SCH (22:00)
== END 2018-06-10 17:45 | disposition home or self-care (01) ==
LOC: JASUSAT 06:09 → J8W 16:33 → JASUSAT 16:37
PROVIDERS: ATTEND Urology
PROC: 0TP98DZ Removal of Intraluminal Device from Ureter, Via Natural or Artificial Opening Endoscopic (ICD-10-PCS; principal; 2018-06-08 12:00)
DX: Z45.89 Encounter for adjustment and management of other implanted devices (principal); Z79.01 Long term (current) use of anticoagulants; Z87.442 Personal history of urinary calculi
CPT/HCPCS: 36415; 72050-TC-FY; 80053; 80162; 81003; 82962; 83735; 84100; 84443; 85025; 88300-TC; 94760

== ENCOUNTER 2018-11-16 18:23 | Emergency (ER) | payer OTHER ==
[2018-11-16 18:52] VITALS: BMI 51.5
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
[2018-11-16] MEDS ORDERED: METOCLOPRAMIDE HCL INJECTION 10 MG/2 ML VIAL IVPUSH ONE (19:34)
[2018-11-16] MEDS ORDERED: ACETAMINOPHEN 1000 MG/100 ML VIAL (NON FORMULARY) IVPB ONE (19:34)
--- NOTE | 2018-11-16 19:37 | PDOC ---
Attending Attestation - Resident Resident Name: AileenTawny - ED Attending Attestation I have performed the following: I have examined & evaluated the patient, The case was reviewed & discussed with the resident, I agree w/resident's findings & plan, Exceptions are as noted - HPI HPI: 11/16/18 19:35 morbidly obese 63 yo male p/w report of epistaxis head ncat eyes raheem eomi nares clot in nares,no active bleeding neck supple lungs cta b/l cvs [id number] abd protuberant extremities +4 edema b/l neuro a xox3,ambulates w walker,motor strength 4/4 11/16/18 21:01 - Physicial Exam PE: 11/16/18 21:02 please see physical exam above - Medical Decision Making 11/16/18 20:55 he also has a complaint of headache and history of is ICH and therefore CT of the brain was ordered -pt is axox3,no new focal neuro deficits 11/16/18 21:04 labs reviewed and cbc unremarkable, [id number] 11/16/18 21:10 11/16/18 22:00 ct scan of head no acute intracraial pathology,old craniotomy seen again but there is new sinus disease imp sinusitis ,left nares epistaxis pt d/c home
[2018-11-16 19:42] LABS: BASO % 0.6 % (0-2.0); EOS % 4.4 % (0-4.5); HEMATOCRIT 38.3 % (35.4-49); HEMOGLOBIN 12.7 GM/dL (11.7-16.9); MCH 31.3 pg (25.7-33.7); MCHC 33.1 g/dl (32.0-35.9); MEAN CELL VOLUME 94.5 fl (80-96); MONO % 9.9 % (3.8-10.2); NEUT % 58.1 % (42.8-82.8); PLATELET COUNT 160 K/MM3 (134-434); RBC 4.06 M/mm3 (4.00-5.60); RDW 14.3 % (11.9-15.9); WHITE BLOOD COUNT 5.5 K/mm3 (4.0-10.0)
[2018-11-16] MEDS ORDERED: METOCLOPRAMIDE HCL INJECTION 10 MG/2 ML VIAL ONE (19:43)
[2018-11-16] MEDS ORDERED: ACETAMINOPHEN INJECTION 100 ML IVPB ONE (19:43)
[2018-11-16 19:53] LABS: INR 1.77 (0.83-1.09)
[2018-11-16 19:55] LABS: ACTIVATED PTT 46.4 SECONDS (25.2-36.5)
[2018-11-16 20:16] LABS: ALBUMIN 3.3 g/dl (3.4-5.0); BILIRUBIN,TOTAL 0.6 mg/dL (0.2-1); BLOOD UREA NITROGEN 15.2 mg/dL (7-18); CALCIUM 8.9 mg/dL (8.5-10.1); CREATININE 1.1 mg/dL (0.55-1.3); POTASSIUM 4.9 mmol/L (3.5-5.1); TOT PROT 7.2 g/dl (6.4-8.2)
[2018-11-16 22:37] VITALS: BP 150/82; PULSE 80; TEMP 98.4
== END 2018-11-16 22:50 | disposition home or self-care (01) ==
LOC: JER 18:23
PROC: 3E033NZ Introduction of Analgesics, Hypnotics, Sedatives into Peripheral Vein, Percutaneous Approach (ICD-10-PCS; principal; 2018-11-16)
PROC: 3E033GC Introduction of Other Therapeutic Substance into Peripheral Vein, Percutaneous Approach (ICD-10-PCS; 2018-11-16)
DX: R04.0 Epistaxis (principal); E11.65 Type 2 diabetes mellitus with hyperglycemia; Z79.4 Long term (current) use of insulin; I25.10 Atherosclerotic heart disease of native coronary artery without angina pectoris; I11.0 Hypertensive heart disease with heart failure; Z95.5 Presence of coronary angioplasty implant and graft; I50.9 Heart failure, unspecified; Z79.01 Long term (current) use of anticoagulants; I25.2 Old myocardial infarction; E78.00 Pure hypercholesterolemia, unspecified; G40.909 Epilepsy, unspecified, not intractable, without status epilepticus; N40.0 Benign prostatic hyperplasia without lower urinary tract symptoms; Z96.0 Presence of urogenital implants; K74.60 Unspecified cirrhosis of liver; B18.2 Chronic viral hepatitis C; J44.9 Chronic obstructive pulmonary disease, unspecified; E66.01 Morbid (severe) obesity due to excess calories; Z68.43 Body mass index [BMI] 50.0-59.9, adult
CPT/HCPCS: 36415; 70450-TC; 80053; 85025; 85610; 85730; 86850; 86900; 86901; 96374; 96375; 99284-25; J0131

== ENCOUNTER 2019-04-15 18:51 | Inpatient (IN) | payer OTHER ==
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
--- NOTE | 2019-04-15 19:58 | PDOC ---
Documentation entered by Flo Gamez SCRIBE, acting as scribe for Naima Bass DO. Naima Bass, DO: This documentation has been prepared by the Vera kamara Angel, SCRIBE, under my direction and personally reviewed by me in its entirety. I confirm that the documentation accurately reflects all work, treatment, procedures, and medical decision making performed by me. Attending Attestation - Resident Resident Name: Dany Flores - ED Attending Attestation I have performed the following: I have examined & evaluated the patient, The case was reviewed & discussed with the resident, I agree w/resident's findings & plan, Exceptions are as noted - HPI HPI: 04/15/19 20:09 The patient is a year 64 year old male with a significant PMH of HTN, NIDDM, HLD, Morbid Obesity, TBI, Anxiety, Chronic pain, arthritis, CHF, afib on xarelto , CAD (s/p 7 stents and pacemaker who presents to the emergency department BIBA s/p fall earlier today. Pt states he was walking with his walker, lost his balance and fell on his back hitting his head, R knee and L shoulder. Pt states he woke up on the floor and was unable to get up. Pt does not recall how long he was down for and is unsure if he lost consciousness. Pt reported 1 week of hematuria and diarrhea and blood in the stool since yesterday. Pt states he is on xarelto and plavix. Pt takes 30mg oxycodone 4 times a day for his chronic back pain and neuropathy. The patient denies chest pain, shortness of breath. Denies fever, chills, cough , nausea, vomiting, and constipation. Denies dysuria, frequency, urgency and Allergies: vancomycin PCP:Dr. Russell - Physicial Exam PE: 04/15/19 20:10 GENERAL: Awake, alert, and fully oriented, in no acute distress HEAD: No signs of trauma EYES: PERRLA, EOMI, sclera anicteric, + pale conjunctiva ENT: Auricles normal inspection, hearing grossly normal, nares patent, oropharynx clear without exudates. +dry mucus membrane NECK: Normal ROM, supple, no lymphadenopathy, JVD, or masses LUNGS: Breath sounds equal, clear to auscultation bilaterally. No wheezes, and no crackles HEART: Regular rate and rhythm, normal S1 and S2, no murmurs, rubs or gallops ABDOMEN: +morbidly obese, potuberant, Soft, nontender, normoactive bowel sounds. No guarding, no rebound. No masses EXTREMITIES: +Left shoulder pain to deep palpation, Limited range of motion secondary to pain. + Ecchymosis to right medial knee. no edema. No clubbing or cyanosis. No cords, erythema, NEUROLOGICAL:+ Chronic neuropathy. Cranial nerves II through XII grossly intact. Normal speech SKIN: + Pale. Warm, Dry, normal turgor, no rashes or lesions noted. - Medical Decision Making 04/15/19 19:56 a/p: 64yo male with a fall tonight -pt with hematuria a week ago and then diarrhea last nigh with blood in stool -pt with a fall tonight with his walker with loc - on noac and plavix -ecchymosis to R medial knee, L shoulder pain -will send labs, head ct, c spine ct -pt is pale, poss anemia as cause of generalized weakness -will most likely need admission -will need rectal exam -will monitor and reassess 04/15/19 20:46 blood counts reviewed and stable inr 2 chem pending pt to ct 04/15/19 22:[address] neg cxr clear L shoulder xray without acute fx R knee xray with djd no fx 04/15/19 22:36 trop neg labs reviewed 04/15/19 23:34 resident discussed the case with lucy who accepts pt to service Heart Score/ECG Review - ECG Intrepretation Comment:: 04/15/19 22:59 afib at 74, nl axis, paced beat occasionally, t wave inversions v2-3, no acute st changes
[2019-04-15] MEDS ORDERED: ACETAMINOPHEN 325 MG TABLET (FP) PO ONE (20:06)
[2019-04-15 20:28] LABS: BASO % 0.4 % (0-2.0); EOS % 3.3 % (0-4.5); HEMATOCRIT 38.2 % (35.4-49); HEMOGLOBIN 13.1 GM/dL (11.7-16.9); LYMPH % 18.1 % (8-40); MCH 32.1 pg (25.7-33.7); MCHC 34.2 g/dl (32.0-35.9); MEAN CELL VOLUME 93.9 fl (80-96); MEAN PLT VOLUME 7.6 fl (7.5-11.1); MONO % 8.5 % (3.8-10.2); NEUT % 69.7 % (42.8-82.8); PLATELET COUNT 146 K/MM3 (134-434); RBC 4.07 M/mm3 (4.00-5.60); WHITE BLOOD COUNT 8.9 K/mm3 (4.0-10.0)
[2019-04-15] MEDS ORDERED: ACETAMINOPHEN 325 MG TABLET (FP) ONE (20:32)
[2019-04-15 20:39] LABS: INR 2.17 (0.83-1.09); PROTHROMBIN TIME (PATIENT) 25.8 SEC (9.7-13.0)
[2019-04-15 20:41] LABS: ACTIVATED PTT 43.7 SECONDS (25.2-36.5)
[2019-04-15 20:57] LABS: ALBUMIN 3.5 g/dl (3.4-5.0); ALK PHOS 72 U/L (45-117); ANION GAP 6 MMOL/L (8-16); BILIRUBIN,TOTAL 0.9 mg/dL (0.2-1); BLOOD UREA NITROGEN 25.5 mg/dL (7-18); CALCIUM 8.7 mg/dL (8.5-10.1); CHLORIDE 102 mmol/L (98-107); CO2 29 mmol/L (21-32); CREATININE 1.2 mg/dL (0.55-1.3); GLUCOSE,RANDOM 238 mg/dL (74-106); POTASSIUM 4.2 mmol/L (3.5-5.1); SGOT/AST 27 U/L (15-37); SGPT/ALT 32 U/L (13-61); SODIUM 137 mmol/L (136-145); TOT PROT 7.2 g/dl (6.4-8.2)
[2019-04-15] MEDS ORDERED: KETOROLAC TROMETHAMINE 30 MG/1 ML VIAL IVPUSH ONE (21:32)
[2019-04-15] MEDS ORDERED: KETOROLAC TROMETHAMINE 15 MG/ML VIAL ONE (21:53)
[2019-04-15] MEDS ORDERED: SODIUM CHLORIDE 0.9% 500 ML INFUS.BAG IV ONE (22:09)
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
[2019-04-16] MEDS ORDERED: oxyCODONE HCL 40 MG SUSTAINED ACTING TABLET PO ONE (00:49)
[2019-04-16] MEDS ORDERED: GABAPENTIN 300 MG CAPSULE PO ONE (00:50)
[2019-04-16] MEDS ORDERED: oxyCODONE HCL 10 MG SUSTAINED ACTING TABLET ONE (00:57)
[2019-04-16] MEDS ORDERED: GABAPENTIN 100 MG CAPSULE ONE (00:57)
[2019-04-16] MEDS ORDERED: LIDOCAINE 5% TOPICAL PATCH TP ONE (03:04)
[2019-04-16] MEDS ORDERED: LIDOCAINE HCL 2% JELLY 10 ML CARTRIDGE ONE (08:10)
--- NOTE | 2019-04-16 08:29 | CON.GU ---
Consult Consult Specialty:: urology Referred by:: brandon Reason for Consultation:: acute urinary retention - History of Present Illness Chief Complaint: acute urinary retention History of Present Illness: Patient is brought to the hospital after a fall. Patient with multiple medical problems. Patient unable to void with post void urine of about 400cc and is uncomfortable. 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 (craniotomy s/p evacuation [facility] on [facility] ) Cardio/Vascular: Yes: AFIB, CAD (prior PCI, last 12/2016 at [place], [facility]), CHF (chronic primarily diastolic), HTN, Other Pulmonary: Yes: COPD Gastrointestinal: Yes: Other (6 years earlier -negative EGD and colonoscopy) Hepatobiliary: Yes: Cirrhosis, Hepatitis C, Other (patient does not admit to cirrhosis (normal liver on ct scan does have splenomegaly)) Renal/: Yes: BPH, Renal Calculi Psych: Yes: Anxiety, Depression Musculoskeletal: Yes: Chronic low back pain, Osteoarthritis Endocrine: Yes: Diabetes Mellitus - Past Surgical History Past Surgical History: Yes: Colonoscopy, Upper Endoscopy - Alcohol/Substance Use Hx Alcohol Use: No History of Substance Use: reports: None - Smoking History Smoking history: Former smoker Have you smoked in the past 12 months: No Aproximately how many cigarettes per day: 0 If you are a former smoker, when did you quit?: 25 years - Social History Usual Living Arrangement: With Child ADL: Family Assistance Occupation: worked in [employer] with exposures History of Recent Travel: No Home Medications - Allergies Allergies/Adverse Reactions: Allergies Allergy/AdvReac Type Severity Reaction Status Date / Time vancomycin AdvReac Mild Itching Verified 04/15/19 19:00 - Home Medications Home Medications: Ambulatory Orders Clopidogrel Bisulfate [Clopidogrel] 75 mg PO DAILY 07/20/17 Digoxin [Lanoxin -] 0.125 mg PO DAILY 07/20/17 Metoprolol Succinate [Toprol XL -] 50 mg PO DAILY 07/20/17 Oxycodone HCl 30 mg PO TID PRN 07/20/17 Insulin Detemir [Levemir Flextouch] 10 unit SQ ACBK #1 insuln.pen MDD 1 Melatonin 5 mg PO HS PRN tab 07/29/17 Rivaroxaban [Xarelto -] 20 mg PO DAILY@1800 tablet 07/29/17 Tamsulosin HCl [Flomax -] 0.4 mg PO DAILY@0830 #30 cap.er.24h MDD 1 07/29/17 Finasteride [Proscar -] 5 mg PO DAILY 09/05/17 Lisinopril [Zestril] 2.5 mg PO DAILY 09/05/17 Simvastatin 20 mg PO DAILY 09/05/17 levETIRAcetam [Keppra Xr -] 750 mg PO DAILY MDD 1 09/05/17 Gabapentin [Neurontin] 600 mg PO HS 03/25/18 Amox-Tr/K Cl [Augmentin 875-125mg Tablet -] 1 tab PO BID@0800,1730 #14 tablet Gabapentin 600 mg PO TID #90 tablet 03/26/18 Phenazopyridine HCl [Pyridium -] 100 mg PO TID #90 tablet 03/26/18 Oxycodone HCl [Roxicodone] 30 mg PO QID PRN #40 tablet MDD 8 03/27/18 Amoxicillin/Potassium Clav [Augmentin 875-125 Tablet] 1 each PO BID #14 tablet 11/16/18 Physical Exam- Vital Signs: Vital Signs Temperature 98.2 F 04/16/19 06:00 Pulse Rate 81 04/16/19 06:00 Respiratory Rate 17 04/16/19 06:00 Blood Pressure 131/74 04/16/19 06:00 O2 Sat by Pulse Oximetry (%) 96 04/16/19 04:56 Constitutional: Yes: Anxious, Moderate Distress, Obese Eyes: Yes: WNL, Conjunctiva Clear, EOM Intact HENT: Yes: WNL, Atraumatic, Normocephalic Neck: Yes: WNL, Supple, Trachea Midline Cardiovascular: Yes: Regular Rate and Rhythm Respiratory: Yes: Regular Gastrointestinal: Yes: Normal Bowel Sounds, Soft Renal/: Yes: WNL Kidneys: Yes: WNL Pelvis: Yes: Bladder Distended Scrotum: Yes: WNL Penis: Yes: WNL Prostate Exam: Yes: Swollen Labs: CBC, BMP 04/15/19 19:50 04/15/19 19:50 Assessment/Plan procedure note cline catheter placed without difficulty imp bph urinary retention plan continue flomax cline catheter which may be d/c'ed at the discretion of the medical staff.
--- NOTE | 2019-04-16 08:31 | PN ---
Progress Note, Physician - Current Medication List Current Medications: Active Medications Clopidogrel Bisulfate (Plavix -) 75 mg PO DAILY [facility] Digoxin (Lanoxin -) 0.25 mg PO DAILY [facility] Gabapentin (Neurontin -) 600 mg PO TID [facility] Insulin Aspart (Novolog Vial Sliding Scale -) 1 vial SQ ACHS [facility]; Protocol Levetiracetam (Keppra -) 250 mg PO DAILY [facility] Melatonin (Melatonin) 10 mg PO HS [facility] Metoprolol Succinate (Toprol Xl -) 50 mg PO DAILY [facility] Miscellaneous (Lidoderm Patch Removal) 1 each MC DAILY@2200 [facility] Rivaroxaban (Xarelto) 20 mg PO DAILY@1800 [facility] Tamsulosin HCl (Flomax -) 0.4 mg PO DAILY@0830 [facility] - Objective Vital Signs: Vital Signs Temperature 98.2 F 04/16/19 06:00 Pulse Rate 81 04/16/19 06:00 Respiratory Rate 17 04/16/19 06:00 Blood Pressure 131/74 04/16/19 06:00 O2 Sat by Pulse Oximetry (%) 96 04/16/19 04:56 Labs: CBC, BMP 04/15/19 19:50 04/15/19 19:50 INR, PTT INR 2.17 (0.83-1.09) H 04/15/19 19:50
[2019-04-16] MEDS: INSULIN SLIDING SCALE (NOVOLOG) 1 VIAL SQ SCH ×4 (08:35→22:23)
[2019-04-16] MEDS: GABAPENTIN 300 MG CAPSULE PO SCH ×3 (08:36→22:11)
[2019-04-16] MEDS: TAMSULOSIN HCL 0.4 MG CAP PO SCH (08:36)
--- NOTE | 2019-04-16 09:38 | PN ---
Progress Note, Physician Chief Complaint: AWAKE ALERT SON BEDSIDE C/O PAIN TO KNEE AND BACK - Current Medication List Current Medications: Active Medications Acetaminophen (Tylenol -) 650 mg PO Q6H PRN PRN Reason: PAIN LEVEL 1-5 Clopidogrel Bisulfate (Plavix -) 75 mg PO DAILY [facility] Digoxin (Lanoxin -) 0.25 mg PO DAILY [facility] Docusate Sodium (Colace -) 300 mg PO HS [facility] Gabapentin (Neurontin -) 600 mg PO TID [facility] Last Admin: 04/16/19 08:36 Dose: 600 mg Insulin Aspart (Novolog Vial Sliding Scale -) 1 vial SQ [facility]; Protocol Last Admin: 04/16/19 08:35 Dose: 4 units Levetiracetam (Keppra -) 250 mg PO DAILY [facility] Melatonin (Melatonin) 10 mg PO HS [facility] Metoprolol Succinate (Toprol Xl -) 50 mg PO DAILY [facility] Miscellaneous (Lidoderm Patch Removal) 1 each MC DAILY@2200 [facility] Oxycodone HCl (Roxicodone -) 30 mg PO Q6H PRN PRN Reason: PAIN LEVEL 7 - 10 Rivaroxaban (Xarelto) 20 mg PO DAILY@1800 [facility] Tamsulosin HCl (Flomax -) 0.4 mg PO DAILY@0830 [facility] Last Admin: 04/16/19 08:36 Dose: 0.4 mg - Objective Vital Signs: Vital Signs Temperature 98.2 F 04/16/19 06:00 Pulse Rate 81 04/16/19 06:00 Respiratory Rate 17 04/16/19 06:00 Blood Pressure 131/74 04/16/19 06:00 O2 Sat by Pulse Oximetry (%) 96 04/16/19 04:56 Constitutional: Yes: Mild Distress Eyes: Yes: WNL HENT: Yes: WNL Neck: Yes: WNL Cardiovascular: Yes: Pulse Irregular Respiratory: Yes: Diminished Gastrointestinal: Yes: Soft, Abdomen, Obese Genitourinary: Yes: Sharif Present, Hematuria Musculoskeletal: Yes: Muscle Weakness Edema: Yes Peripheral Pulses WNL: Yes Integumentary: Yes: Venous Stasis Changes Wound/Incision: Yes: Open to air Neurological: Yes: Loss of Sensation, Numbness, Paresthesia, Pre-Existing Deficit ...Motor Strength: LLE, RLE Psychiatric: Yes: WNL Labs: CBC, BMP 04/15/19 19:50 04/15/19 19:50 INR, PTT INR 2.17 (0.83-1.09) H 04/15/19 19:50 Problem List - Problems (1) Syncope and collapse Code(s): R55 - SYNCOPE AND COLLAPSE (2) Acute on chronic diastolic (congestive) heart failure Code(s): I50.33 - ACUTE ON CHRONIC DIASTOLIC (CONGESTIVE) HEART FAILURE (3) Anxiety Code(s): F41.9 - ANXIETY DISORDER, UNSPECIFIED (4) Atrial fibrillation Code(s): I48.91 - UNSPECIFIED ATRIAL FIBRILLATION (5) BPH (benign prostatic hypertrophy) Code(s): N40.0 - BENIGN PROSTATIC HYPERPLASIA WITHOUT LOWER URINRY TRACT SYMP (6) Bilateral kidney stones Code(s): N20.0 - CALCULUS OF KIDNEY (7) Diabetes Code(s): E11.9 - TYPE 2 DIABETES MELLITUS WITHOUT COMPLICATIONS Qualifiers: Diabetes mellitus type: type 2 (8) Fall Code(s): W19.XXXA - UNSPECIFIED FALL, INITIAL ENCOUNTER (9) HTN (hypertension) Code(s): I10 - ESSENTIAL (PRIMARY) HYPERTENSION Assessment/Plan SHARIF INSERTED, SEEN BY DR SOTO HEMATUREA CONTINUES AC AND PLAVIX ON HOLD CARDIOLOGY EVAL APPRECIATED SEEN IN ICU PAIN CONTROL STOOL SOFTENERS
--- NOTE | 2019-04-16 09:44 | CON.CARD ---
Consult Consult Specialty:: Cardiology Referred by:: Dr. Russell Reason for Consultation:: Cardiac evaluation s/p fall - History of Present Illness Chief Complaint: Slip and fall History of Present Illness: 64M with chronic AF , s/p PPM at [facility], CAD s/p PCI, remote hx intracranial bleed after a fall many years ago s/p evacuation at [facility] presents to ER after slip and fall at home. Was on toilet, constipated-- got up and then suffered at slip and fall at home. Head CT negative. No CP, SOB, palps, no edema. Patient has chronic disc disease and is homebound. 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 (craniotomy s/p evacuation [facility] on [facility] ) Cardio/Vascular: Yes: AFIB, CAD (prior PCI, last 12/2016 at [place], [facility]), CHF (chronic primarily diastolic), HTN, Other Pulmonary: Yes: COPD Gastrointestinal: Yes: Other (6 years earlier -negative EGD and colonoscopy) Hepatobiliary: Yes: Cirrhosis, Hepatitis C, Other (patient does not admit to cirrhosis (normal liver on ct scan does have splenomegaly)) Renal/: Yes: BPH, Renal Calculi Psych: Yes: Anxiety, Depression Musculoskeletal: Yes: Chronic low back pain, Osteoarthritis Endocrine: Yes: Diabetes Mellitus - Past Surgical History Past Surgical History: Yes: Colonoscopy, Upper Endoscopy - Alcohol/Substance Use Hx Alcohol Use: No History of Substance Use: reports: None - Smoking History Smoking history: Former smoker Have you smoked in the past 12 months: No Aproximately how many cigarettes per day: 0 If you are a former smoker, when did you quit?: 25 years - Social History Usual Living Arrangement: With Child ADL: Family Assistance Occupation: worked in [employer] with exposures History of Recent Travel: No Home Medications - Allergies Allergies/Adverse Reactions: Allergies Allergy/AdvReac Type Severity Reaction Status Date / Time vancomycin AdvReac Mild Itching Verified 04/15/19 19:00 - Home Medications Home Medications: Ambulatory Orders Clopidogrel Bisulfate [Clopidogrel] 75 mg PO DAILY 07/20/17 Digoxin [Lanoxin -] 0.125 mg PO DAILY 07/20/17 Metoprolol Succinate [Toprol XL -] 50 mg PO DAILY 07/20/17 Oxycodone HCl 30 mg PO TID PRN 07/20/17 Insulin Detemir [Levemir Flextouch] 10 unit SQ ACBK #1 insuln.pen MDD 1 Melatonin 5 mg PO HS PRN tab 07/29/17 Rivaroxaban [Xarelto -] 20 mg PO DAILY@1800 tablet 07/29/17 Tamsulosin HCl [Flomax -] 0.4 mg PO DAILY@0830 #30 cap.er.24h MDD 1 07/29/17 Finasteride [Proscar -] 5 mg PO DAILY 09/05/17 Lisinopril [Zestril] 2.5 mg PO DAILY 09/05/17 Simvastatin 20 mg PO DAILY 09/05/17 levETIRAcetam [Keppra Xr -] 750 mg PO DAILY MDD 1 09/05/17 Gabapentin [Neurontin] 600 mg PO HS 03/25/18 Amox-Tr/K Cl [Augmentin 875-125mg Tablet -] 1 tab PO BID@0800,1730 #14 tablet Gabapentin 600 mg PO TID #90 tablet 03/26/18 Phenazopyridine HCl [Pyridium -] 100 mg PO TID #90 tablet 03/26/18 Oxycodone HCl [Roxicodone] 30 mg PO QID PRN #40 tablet MDD 8 03/27/18 Amoxicillin/Potassium Clav [Augmentin 875-125 Tablet] 1 each PO BID #14 tablet 11/16/18 Family Medical History Family History: Unremarkable Review of Systems - Review of Systems Constitutional: reports: No Symptoms Eyes: reports: No Symptoms HENT: reports: No Symptoms Neck: reports: No Symptoms Cardiovascular: reports: No Symptoms Respiratory: reports: No Symptoms Gastrointestinal: reports: No Symptoms Genitourinary: reports: No Symptoms Breasts: reports: No Symptoms Reported Musculoskeletal: reports: Muscle Cramps Integumentary: reports: No Symptoms Neurological: reports: Unsteady Gait, Weakness - Risk Factors Known Risk Factors: Yes: Hypertension, Physical Inactivity, Prior PR /Emb Stroke Vital Signs: Vital Signs Temperature 98.2 F 04/16/19 06:00 Pulse Rate 81 04/16/19 06:00 Respiratory Rate 17 04/16/19 06:00 Blood Pressure 131/74 04/16/19 06:00 O2 Sat by Pulse Oximetry (%) 96 04/16/19 04:56 Constitutional: Yes: No Distress, Calm Respiratory: Yes: CTA Bilaterally Gastrointestinal: Yes: Soft, Abdomen, Obese Cardiovascular: Yes: Pulse Irregular Heart Sounds: Yes: S1, S2 (iireg) Edema: Yes Edema: LLE: 1+, RLE: 1+ Neurological: Yes: Alert, Oriented ...Motor Strength: WNL - Other Data Labs, Other Data: CBC, BMP 04/15/19 19:50 04/15/19 19:50 INR, PTT INR 2.17 (0.83-1.09) H 04/15/19 19:50 Troponin, BNP 04/15/19 04/16/19 19:50 03:15 Troponin I < 0.02 < 0.02 Troponin, BNP 04/15/19 04/16/19 19:50 03:15 Troponin I < 0.02 < 0.02 Echo: Other (Last echo 2016- grossly normal EF, mildly dilated aortic root) Prior Cardiac Procedures: PTCA with Stent Ejection Fraction %: LVEF > or = 40 % Imaging - Results Cat Scan: Report Reviewed EKG: Image Reviewed Assessment/Plan IMP: Mechanical fall AF s/p PPM for tachy candice CAD s/p multivessel PCI (last 01/2017 LAD/D1) Obesity HTN Aortic aneurysm, thoracic REC: 1. Doubt arrhythmia. If tele negative after 24 hours, can d/c tele 2. PT evaluation. If patient is deemed to be a significant falls risk with truly unstable gait then we will need to address the safety of data processing control clerk full AC and discuss options such as WATCHMAN device. 3. Cont single antiplatelet Rx with Plavix for CAD s/p prior PCI 4. Echo for surveillance of thoracic aorta 5. Continue home rate control medications.
[2019-04-16] MEDS ORDERED: levETIRAcetam 250 MG TABLET PO SCH (10:00)
[2019-04-16] MEDS: oxyCODONE HCL 5 MG TABLET PO PRN ×3 (10:18→22:08)
[2019-04-16] MEDS: CLOPIDOGREL BISULFATE 75 MG TABLET (FP) PO SCH (10:18)
[2019-04-16 10:43] LABS: EPI CELLS 4.4 /HPF (0-5/HPF); HYALINE CASTS 12 /lpf (0-8); URINE APPEARANCE TURBID; URINE BILIRUBIN 1+ (NEGATIVE); URINE COLOR ORANGE; URINE GLUCOSE (UA) 1+ (NEGATIVE); URINE KETONE NEGATIVE (NEGATIVE); URINE LEUK ESTERASE 1+ (NEGATIVE); URINE NITRITE NEGATIVE (NEGATIVE); URINE PROTEIN 1+ (NEGATIVE); URINE WBC 6 /hpf (0-5)
[2019-04-16 11:35] LABS: BASO % 0.6 % (0-2.0); EOS % 4.1 % (0-4.5); HEMATOCRIT 34.4 % (35.4-49); HEMOGLOBIN 11.8 GM/dL (11.7-16.9); LYMPH % 27.9 % (8-40); MCH 32.2 pg (25.7-33.7); MCHC 34.5 g/dl (32.0-35.9); MEAN CELL VOLUME 93.5 fl (80-96); MEAN PLT VOLUME 7.5 fl (7.5-11.1); MONO % 7.8 % (3.8-10.2); NEUT % 59.6 % (42.8-82.8); PLATELET COUNT 131 K/MM3 (134-434); RBC 3.68 M/mm3 (4.00-5.60); RDW 14.4 % (11.9-15.9); WHITE BLOOD COUNT 7.9 K/mm3 (4.0-10.0)
[2019-04-16 11:50] LABS: URINE BACTERIA 13.6 /hpf (NEGATIVE); URINE RBC 63.5 /hpf (0-4); YEAST NONE SEEN (NEGATIVE)
--- NOTE | 2019-04-16 11:51 | ECHO ---
Name: ARSENIO KHAN Exam:Adult Echocardiogram Study Date: 04/16/2019 09:58 AM Age: 64 yrs Reason For Study: SYNCOPE Height: 71 in Weight: 350 lb BSA: 2.7 m2 MMode/2D Measurements & Calculations RVDd: 3.6 cm Ao root diam: 3.0 cm IVSd: 1.1 cm LA dimension: 4.1 cm LVIDd: 4.7 cm ACS: 2.0 cm LVIDs: 2.9 cm LVPWd: 1.1 cm IVSs: 1.3 cm LVPWs: 1.3 cm EDV(Teich): 104.0 ml ESV(Teich): 32.4 ml Doppler Measurements & Calculations Ao V2 max: 177.8 cm/sec TR max nichole: 250.3 cm/sec Ao max P.6 mmHg TR max P.1 mmHg Ao V2 mean: 123.0 cm/sec Ao mean P.8 mmHg Ao V2 VTI: 29.9 cm Procedure The study was technically difficult with many images being suboptimal in quality. Left Ventricle Left ventricular systolic function is grossly normal. Ejection Fraction = 50-55%. Regional wall motio n abnormalities cannot be excluded due to limited visualization. Right Ventricle The right ventricle is not well visualized. Atria The left atrium is mildly dilated. Right atrium not well visualized. Mitral Valve The mitral valve is normal in structure and function. There is no mitral valve stenosis. Tricuspid Valve The tricuspid valve is not well visualized, but is grossly normal. There is mild tricuspid regurgitat ion. There was insufficient TR detected to calculate RV systolic pressure. Aortic Valve There is mild aortic sclerosis.;. No hemodynamically significant valvular aortic stenosis. No aortic regurgitation is present. Pulmonic Valve The pulmonic valve is not well seen, but is grossly normal. There is no pulmonic valvular stenosis. T here is no pulmonic valvular regurgitation. Great Vessels The aortic root is normal size. Mildly dilated ascending aorta. Pericardium/Pleura There is no pericardial effusion. Interpretation Summary The study was technically difficult with many images being suboptimal in quality. Regional wall motion abnormalities cannot be excluded due to limited visualization. Left ventricular systolic function is grossly normal. Ejection Fraction = 50-55%. The left atrium is mildly dilated. There is mild tricuspid regurgitation. There is mild aortic sclerosis.; Mildly dilated ascending aorta. There is no pericardial effusion. MD Azar *Yulia 04/16/2019 11:51 AM
[2019-04-16 12:18] LABS: ANION GAP 5 MMOL/L (8-16); BLOOD UREA NITROGEN 21.9 mg/dL (7-18); CALCIUM 8.2 mg/dL (8.5-10.1); CHLORIDE 106 mmol/L (98-107); CO2 27 mmol/L (21-32); GLUCOSE,RANDOM 182 mg/dL (74-106); MAGNESIUM 1.7 mg/dL (1.8-2.4); PHOSPHOROUS 2.8 mg/dL (2.5-4.9); POTASSIUM 4.1 mmol/L (3.5-5.1); SODIUM 138 mmol/L (136-145)
[2019-04-16] MEDS ORDERED: PT OWN MED DRAWER 7, Y5N ONE (13:10)
[2019-04-16] MEDS: ACETAMINOPHEN 325 MG TABLET (FP) PO PRN (13:12)
[2019-04-16] MEDS: DIGOXIN 0.25 MG TABLET (FP) PO SCH (14:11)
--- NOTE | 2019-04-16 15:33 | EKG ---
Test Reason : Blood Pressure : / mmHG Vent. Rate : 074 BPM Atrial Rate : 094 BPM P-R Int : 000 ms QRS Dur : 106 ms QT Int : 408 ms P-R-T Axes : 000 024 052 degrees QTc Int : 452 ms ATRIAL FIBRILLATION WITH OCCASIONAL ventricular-paced complexes AND WITH VENTRICULAR ESCAPE COMPLEXES INCOMPLETE RIGHT BUNDLE BRANCH BLOCK NONSPECIFIC ST ABNORMALITY ABNORMAL ECG Confirmed by MELISSA MURRAY MD ([id number]) on 04/16/2019 3:33:28 PM Referred By: Confirmed By:MELISSA MURRAY MD
[2019-04-16] MEDS: RIVAROXABAN 20 MG TABLET PO SCH (17:03)
[2019-04-16] MEDS ORDERED: INSULIN (NOVOLOG) ASPART 100 UNITS/ML 10ML VIAL ONE (17:30)
[2019-04-16] MEDS: levETIRAcetam XR 750 MG TAB PO SCH (20:10)
[2019-04-16] MEDS: DOCUSATE SODIUM 100 MG CAPSULE (FP) PO SCH (22:11)
[2019-04-16] MEDS: MELATONIN 5 MG TABLETS PO SCH (22:12)
[2019-04-16] MEDS: LIDOCAINE PATCH REMOVAL MC SCH (22:16)
[2019-04-17] MEDS: oxyCODONE HCL 5 MG TABLET PO PRN ×4 (04:56→23:16)
[2019-04-17] MEDS: GABAPENTIN 300 MG CAPSULE PO SCH ×3 (06:08→21:31)
[2019-04-17] MEDS: INSULIN SLIDING SCALE (NOVOLOG) 1 VIAL SQ SCH ×4 (06:16→21:36)
--- NOTE | 2019-04-17 09:04 | PN ---
Progress Note, Physician History of Present Illness: Feels better today Urine clearing No chest pains - Current Medication List Current Medications: Active Medications Acetaminophen (Tylenol -) 650 mg PO Q6H PRN PRN Reason: PAIN LEVEL 1-5 Last Admin: 04/16/19 13:12 Dose: 650 mg Clopidogrel Bisulfate (Plavix -) 75 mg PO DAILY [facility] Last Admin: 04/16/19 10:18 Dose: 75 mg Digoxin (Lanoxin -) 0.25 mg PO DAILY [facility] Last Admin: 04/16/19 14:11 Dose: 0.25 mg Docusate Sodium (Colace -) 300 mg PO [facility] Last Admin: 04/16/19 22:11 Dose: Not Given Gabapentin (Neurontin -) 600 mg PO TID [facility] Last Admin: 04/17/19 06:08 Dose: 600 mg Insulin Aspart (Novolog Vial Sliding Scale -) 1 vial SQ [facility]; Protocol Last Admin: 04/17/19 06:16 Dose: 2 units Levetiracetam (Keppra Xr -) 750 mg PO DAILY [facility] Last Admin: 04/16/19 20:10 Dose: 750 mg Melatonin (Melatonin) 10 mg PO [facility] Last Admin: 04/16/19 22:12 Dose: 10 mg Metoprolol Succinate (Toprol Xl -) 50 mg PO DAILY [facility] Last Admin: 04/16/19 10:18 Dose: 50 mg Miscellaneous (Lidoderm Patch Removal) 1 each MC DAILY@2200 [facility] Last Admin: 04/16/19 22:16 Dose: 1 each Oxycodone HCl (Roxicodone -) 30 mg PO Q6H PRN PRN Reason: PAIN LEVEL 7 - 10 Last Admin: 04/17/19 04:56 Dose: 30 mg Rivaroxaban (Xarelto) 20 mg PO DAILY@1800 [facility] Last Admin: 04/16/19 17:03 Dose: 20 mg Tamsulosin HCl (Flomax -) 0.4 mg PO DAILY@0830 [facility] Last Admin: 04/16/19 08:36 Dose: 0.4 mg - Objective Vital Signs: Vital Signs Temperature 97.7 F 04/16/19 21:00 Pulse Rate 78 04/17/19 04:00 Respiratory Rate 19 04/17/19 04:00 Blood Pressure 124/64 04/17/19 04:00 O2 Sat by Pulse Oximetry (%) 96 04/16/19 21:00 Constitutional: Yes: No Distress, Calm Cardiovascular: Yes: Regular Rate and Rhythm Respiratory: Yes: CTA Bilaterally Extremities: Yes: WNL Labs: CBC, BMP 04/16/19 11:20 04/16/19 11:20 INR, PTT INR 2.17 (0.83-1.09) H 04/15/19 19:50 Assessment/Plan IMP: Mechanical fall after prolonged straining on toilet - sounds vagal AF s/p PPM for tachy candice CAD s/p multivessel PCI (last 01/2017 LAD/D1) Obesity HTN Aortic aneurysm, thoracic REC: 1. Doubt arrhythmia. Tele negative after 24 hours, can d/c tele 2. As per Dr. Bender: PT evaluation. If patient is deemed to be a significant falls risk with truly unstable gait then we will need to address the safety of intermediate project manager full AC and discuss options such as WATCHMAN device. 3. Cont single antiplatelet Rx with Plavix for CAD s/p prior PCI 4. Echo for surveillance of thoracic aorta 5. Continue home rate control medications.
[2019-04-17] MEDS: CLOPIDOGREL BISULFATE 75 MG TABLET (FP) PO SCH (09:46)
[2019-04-17] MEDS ORDERED: PT OWN MED DRAWER 7, Y5N ONE ×2 (09:51→19:42)
[2019-04-17] MEDS: TAMSULOSIN HCL 0.4 MG CAP PO SCH (09:52)
[2019-04-17] MEDS: DIGOXIN 0.25 MG TABLET (FP) PO SCH (09:53)
[2019-04-17] MEDS: levETIRAcetam XR 750 MG TAB PO SCH (09:53)
[2019-04-17] MEDS ORDERED: INSULIN REGULAR HUMAN 100 UNITS/ML *VIAL ONE (11:59)
[2019-04-17] MEDS: RIVAROXABAN 20 MG TABLET PO SCH (19:01)
--- NOTE | 2019-04-17 20:51 | PN ---
Progress Note, Physician Chief Complaint: Syncope Urinary retention History of Present Illness: c/o generalized pain Right knee swelling+ pain,left shoulder pain and abdominal pain - Current Medication List Current Medications: Active Medications Acetaminophen (Tylenol -) 650 mg PO Q6H PRN PRN Reason: PAIN LEVEL 1-5 Last Admin: 04/16/19 13:12 Dose: 650 mg Clopidogrel Bisulfate (Plavix -) 75 mg PO DAILY [facility] Last Admin: 04/17/19 09:46 Dose: 75 mg Digoxin (Lanoxin -) 0.25 mg PO DAILY [facility] Last Admin: 04/17/19 09:53 Dose: 0.25 mg Docusate Sodium (Colace -) 300 mg PO [facility] Last Admin: 04/16/19 22:11 Dose: Not Given Gabapentin (Neurontin -) 900 mg PO TID [facility] Insulin Aspart (Novolog Vial Sliding Scale -) 1 vial SQ [facility]; Protocol Last Admin: 04/17/19 16:44 Dose: 6 units Levetiracetam (Keppra Xr -) 750 mg PO DAILY [facility] Last Admin: 04/17/19 09:53 Dose: 750 mg Melatonin (Melatonin) 10 mg PO [facility] Last Admin: 04/16/19 22:12 Dose: 10 mg Metoprolol Succinate (Toprol Xl -) 50 mg PO DAILY [facility] Last Admin: 04/17/19 09:46 Dose: 50 mg Miscellaneous (Lidoderm Patch Removal) 1 each MC DAILY@2200 [facility] Last Admin: 04/16/19 22:16 Dose: 1 each Morphine Sulfate (Morphine Injection -) 2 mg IVPUSH Q6H PRN PRN Reason: PAIN LEVEL 7 - 10 Oxycodone HCl (Roxicodone -) 30 mg PO Q6H PRN PRN Reason: PAIN LEVEL 7 - 10 Last Admin: 04/17/19 17:08 Dose: 30 mg Rivaroxaban (Xarelto) 20 mg PO DAILY@1800 [facility] Last Admin: 04/17/19 19:01 Dose: 20 mg Tamsulosin HCl (Flomax -) 0.4 mg PO DAILY@0830 [facility] Last Admin: 04/17/19 09:52 Dose: 0.4 mg - Objective Vital Signs: Vital Signs Temperature 98.5 F 04/17/19 13:45 Pulse Rate 73 04/17/19 18:00 Respiratory Rate 19 04/17/19 19:31 Blood Pressure 117/66 04/17/19 18:00 O2 Sat by Pulse Oximetry (%) 98 04/17/19 19:31 Constitutional: Yes: Well Nourished, No Distress, Calm, Obese Cardiovascular: Yes: Regular Rate and Rhythm Respiratory: Yes: Regular, Diminished (BLL) Gastrointestinal: Yes: Abdomen, Obese, Hypoactive Bowel Sounds, Tenderness ( Diffuse) Genitourinary: Yes: Vasques Present Musculoskeletal: Yes: Joint Swelling (right knee), Muscle Pain (generalized), Muscle Weakness Extremities: Yes: WNL Edema: No Peripheral Pulses WNL: Yes Neurological: Yes: Alert, Oriented Psychiatric: Yes: Alert, Oriented Labs: CBC, BMP 04/16/19 11:20 04/16/19 11:20 INR, PTT INR 2.17 (0.83-1.09) H 04/15/19 19:50 Problem List - Problems (1) Right knee pain Assessment/Plan: -Ice pack Q2h for 15 mins -Already on oxycodone 30 mg Q6H PRN -Added morphine 4 mg IVP Q6H PRN Problems reviewed: Yes Code(s): M25.561 - PAIN IN RIGHT KNEE (2) Constipation Assessment/Plan: -Colace -AXR -U/S abd Problems reviewed: Yes Code(s): K59.00 - CONSTIPATION, UNSPECIFIED (3) Syncope and collapse Assessment/Plan: -Tele monitor -Cardiology consult -Likely vaso vagal -Echo ordered Problems reviewed: Yes Code(s): R55 - SYNCOPE AND COLLAPSE (4) Atrial fibrillation Assessment/Plan: -Chronic -rate controlled -Continue toprol -Continue xarelto Problems reviewed: Yes Code(s): I48.91 - UNSPECIFIED ATRIAL FIBRILLATION (5) Diabetes Assessment/Plan: -A1c at 7.4 -BGM ACHS -ISS -Diabetic low sodium diet Problems reviewed: Yes Code(s): E11.9 - TYPE 2 DIABETES MELLITUS WITHOUT COMPLICATIONS (6) Morbid obesity with BMI of 40.0-44.9, adult Problems reviewed: Yes Code(s): E66.01 - MORBID (SEVERE) OBESITY DUE TO EXCESS CALORIES; Z68.41 - BODY MASS INDEX (BMI) 40.0-44.9, ADULT (7) Urinary retention Assessment/Plan: -Seen by urology -Vasques cath -Started on tamsulosin -Voiding trial in AM Problems reviewed: Yes Code(s): R33.9 - RETENTION OF URINE, UNSPECIFIED Assessment/Plan see problem list Physical therapy
[2019-04-17] MEDS: MELATONIN 5 MG TABLETS PO SCH (21:30)
[2019-04-17] MEDS: LIDOCAINE PATCH REMOVAL MC SCH (23:17)
[2019-04-17] MEDS: LIDOCAINE HCL 5% TOP OINTMENT 50 GM TUBE TP SCH (23:17)
[2019-04-18] MEDS: DOCUSATE SODIUM 100 MG CAPSULE (FP) PO SCH ×2 (00:31→21:38)
[2019-04-18] MEDS: MORPHINE SULFATE 2 MG/ML VIAL IVPUSH PRN ×4 (00:32→20:05)
[2019-04-18] MEDS: oxyCODONE HCL 5 MG TABLET PO PRN ×4 (05:12→23:14)
[2019-04-18] MEDS: GABAPENTIN 300 MG CAPSULE PO SCH ×3 (05:14→21:51)
[2019-04-18] MEDS: MAG HYDROX/AL HYDROX/SIMETH 30 ML UNIT-DOSE CUP PO PRN ×2 (06:00→20:09)
[2019-04-18] MEDS: INSULIN SLIDING SCALE (NOVOLOG) 1 VIAL SQ SCH ×4 (06:01→21:52)
[2019-04-18 06:36] LABS: BASO % 0.5 % (0-2.0); EOS % 5.3 % (0-4.5); HEMATOCRIT 35.5 % (35.4-49); HEMOGLOBIN 12.4 GM/dL (11.7-16.9); LYMPH % 40.6 % (8-40); MCH 32.3 pg (25.7-33.7); MCHC 34.9 g/dl (32.0-35.9); MEAN CELL VOLUME 92.4 fl (80-96); MEAN PLT VOLUME 7.6 fl (7.5-11.1); MONO % 9.9 % (3.8-10.2); NEUT % 43.7 % (42.8-82.8); PLATELET COUNT 150 K/MM3 (134-434); RBC 3.84 M/mm3 (4.00-5.60); RDW 13.5 % (11.9-15.9); WHITE BLOOD COUNT 6.2 K/mm3 (4.0-10.0)
[2019-04-18] MEDS: TAMSULOSIN HCL 0.4 MG CAP PO SCH (07:57)
[2019-04-18] MEDS ORDERED: PT OWN MED DRAWER 7, Y5N ONE (09:20)
[2019-04-18] MEDS: CLOPIDOGREL BISULFATE 75 MG TABLET (FP) PO SCH (09:22)
[2019-04-18] MEDS: levETIRAcetam XR 750 MG TAB PO SCH (09:22)
[2019-04-18] MEDS: DIGOXIN 0.25 MG TABLET (FP) PO SCH (09:22)
[2019-04-18] MEDS: LIDOCAINE HCL 5% TOP OINTMENT 50 GM TUBE TP SCH ×2 (09:23→21:52)
--- NOTE | 2019-04-18 10:47 | PN ---
Progress Note, Physician History of Present Illness: Feeling pain in"kidneys" and stomach No chest pains/palps - Current Medication List Current Medications: Active Medications Acetaminophen (Tylenol -) 650 mg PO Q6H PRN PRN Reason: PAIN LEVEL 1-5 Last Admin: 04/16/19 13:12 Dose: 650 mg Al Hydroxide/Mg Hydroxide (Mylanta Oral Suspension -) 30 ml PO Q6H PRN PRN Reason: DYSPEPSIA Last Admin: 04/18/19 06:00 Dose: 30 ml Clopidogrel Bisulfate (Plavix -) 75 mg PO DAILY [facility] Last Admin: 04/18/19 09:22 Dose: 75 mg Digoxin (Lanoxin -) 0.25 mg PO DAILY [facility] Last Admin: 04/18/19 09:22 Dose: 0.25 mg Docusate Sodium (Colace -) 300 mg PO [facility] Last Admin: 04/18/19 00:31 Dose: Not Given Gabapentin (Neurontin -) 900 mg PO TID [facility] Last Admin: 04/18/19 05:14 Dose: 900 mg Insulin Aspart (Novolog Vial Sliding Scale -) 1 vial SQ [facility]; Protocol Last Admin: 04/18/19 06:01 Dose: 2 units Levetiracetam (Keppra Xr -) 750 mg PO DAILY [facility] Last Admin: 04/18/19 09:22 Dose: 750 mg Lidocaine HCl (Xylocaine 5% Top. Ointment) 1 applic TP BID [facility] Last Admin: 04/18/19 09:23 Dose: 1 applic Melatonin (Melatonin) 10 mg PO [facility] Last Admin: 04/17/19 21:30 Dose: 10 mg Metoprolol Succinate (Toprol Xl -) 50 mg PO DAILY [facility] Last Admin: 04/18/19 09:22 Dose: 50 mg Miscellaneous (Lidoderm Patch Removal) 1 each MC DAILY@2200 [facility] Last Admin: 04/17/19 23:17 Dose: 1 each Morphine Sulfate (Morphine Sulfate) 2 mg IVPUSH Q6H PRN PRN Reason: PAIN LEVEL 7 - 10 Last Admin: 04/18/19 07:41 Dose: 2 mg Oxycodone HCl (Roxicodone -) 30 mg PO Q6H PRN PRN Reason: PAIN LEVEL 7 - 10 Last Admin: 04/18/19 05:12 Dose: 30 mg Rivaroxaban (Xarelto) 20 mg PO DAILY@1800 [facility] Last Admin: 04/17/19 19:01 Dose: 20 mg Tamsulosin HCl (Flomax -) 0.4 mg PO DAILY@0830 [facility] Last Admin: 04/18/19 07:57 Dose: 0.4 mg - Objective Vital Signs: Vital Signs Temperature 98.6 F 04/18/19 07:20 Pulse Rate 84 04/18/19 09:22 Respiratory Rate 16 04/18/19 07:20 Blood Pressure 131/61 04/18/19 07:20 O2 Sat by Pulse Oximetry (%) 99 04/18/19 07:20 Constitutional: Yes: Anxious Cardiovascular: Yes: Pulse Irregular Respiratory: Yes: CTA Bilaterally Edema: No Labs: CBC, BMP 04/18/19 05:17 04/16/19 11:20 INR, PTT INR 2.17 (0.83-1.09) H 04/15/19 19:50 Assessment/Plan IMP: Mechanical fall after prolonged straining on toilet - sounds vagal AF s/p PPM for tachy candice CAD s/p multivessel PCI (last 01/2017 LAD/D1) Obesity HTN Aortic aneurysm, thoracic REC: 1. Doubt arrhythmia. Tele with AFib 2. As per Dr. Bender: PT evaluation. If patient is deemed to be a significant falls risk with truly unstable gait then we will need to address the safety of mcc full AC and discuss options such as WATCHMAN device. 3. Cont single antiplatelet Rx with Plavix for CAD s/p prior PCI 4. Echo done for surveillance of thoracic aorta: Report reviewed and essentially unchanged from 2017. (Ao root 3.0cm) 5. Continue home rate control medications. 6. Dig level OK, would check INR on coumadin
[2019-04-18] MEDS: POLYETHYLENE GLYCOL 3350 119 GM BTL PO SCH ×2 (17:19→21:38)
[2019-04-18] MEDS: RIVAROXABAN 20 MG TABLET PO SCH (17:19)
--- NOTE | 2019-04-18 17:32 | PN ---
Progress Note, Physician Chief Complaint: Syncope Urinary retention History of Present Illness: c/o generalized pain Right knee swelling+ pain,left shoulder pain and abdominal pain AXR large amount of stool refused colace this AM - Current Medication List Current Medications: Active Medications Acetaminophen (Tylenol -) 650 mg PO Q6H PRN PRN Reason: PAIN LEVEL 1-5 Last Admin: 04/16/19 13:12 Dose: 650 mg Al Hydroxide/Mg Hydroxide (Mylanta Oral Suspension -) 30 ml PO Q6H PRN PRN Reason: DYSPEPSIA Last Admin: 04/18/19 06:00 Dose: 30 ml Clopidogrel Bisulfate (Plavix -) 75 mg PO DAILY [facility] Last Admin: 04/18/19 09:22 Dose: 75 mg Digoxin (Lanoxin -) 0.25 mg PO DAILY [facility] Last Admin: 04/18/19 09:22 Dose: 0.25 mg Docusate Sodium (Colace -) 300 mg PO [facility] Last Admin: 04/18/19 00:31 Dose: Not Given Gabapentin (Neurontin -) 900 mg PO TID [facility] Last Admin: 04/18/19 13:41 Dose: 900 mg Insulin Aspart (Novolog Vial Sliding Scale -) 1 vial SQ [facility]; Protocol Last Admin: 04/18/19 11:41 Dose: 4 units Levetiracetam (Keppra Xr -) 750 mg PO DAILY [facility] Last Admin: 04/18/19 09:22 Dose: 750 mg Lidocaine HCl (Xylocaine 5% Top. Ointment) 1 applic TP BID [facility] Last Admin: 04/18/19 09:23 Dose: 1 applic Melatonin (Melatonin) 10 mg PO [facility] Last Admin: 04/17/19 21:30 Dose: 10 mg Metoprolol Succinate (Toprol Xl -) 50 mg PO DAILY [facility] Last Admin: 04/18/19 09:22 Dose: 50 mg Miscellaneous (Lidoderm Patch Removal) 1 each MC DAILY@2200 [facility] Last Admin: 04/17/19 23:17 Dose: 1 each Morphine Sulfate (Morphine Sulfate) 4 mg IVPUSH Q6H PRN PRN Reason: PAIN LEVEL 7 - 10 Oxycodone HCl (Roxicodone -) 30 mg PO Q6H PRN PRN Reason: PAIN LEVEL 7 - 10 Last Admin: 04/18/19 17:19 Dose: 30 mg Polyethylene Glycol (Miralax (For Daily Use) -) 17 gm PO BID [facility] Last Admin: 04/18/19 17:19 Dose: 17 gm Rivaroxaban (Xarelto) 20 mg PO DAILY@1800 [facility] Last Admin: 04/18/19 17:19 Dose: 20 mg Tamsulosin HCl (Flomax -) 0.4 mg PO DAILY@0830 [facility] Last Admin: 04/18/19 07:57 Dose: 0.4 mg - Objective Vital Signs: Vital Signs Temperature 99 F 04/18/19 16:00 Pulse Rate 71 04/18/19 16:00 Respiratory Rate 18 04/18/19 16:00 Blood Pressure 134/60 04/18/19 16:00 O2 Sat by Pulse Oximetry (%) 99 04/18/19 07:20 Constitutional: Yes: Well Nourished, No Distress, Calm, Obese Cardiovascular: Yes: Regular Rate and Rhythm Respiratory: Yes: Regular, Diminished (BLL) Gastrointestinal: Yes: Normal Bowel Sounds, Soft, Abdomen, Obese Genitourinary: Yes: Vasques Present Musculoskeletal: Yes: Joint Swelling (right knee), Muscle Pain (generalized), Muscle Weakness Extremities: Yes: WNL Edema: No Peripheral Pulses WNL: Yes Neurological: Yes: Alert, Oriented Psychiatric: Yes: Alert, Oriented Labs: CBC, BMP 04/18/19 05:17 04/16/19 11:20 INR, PTT INR 2.17 (0.83-1.09) H 04/15/19 19:50 Problem List - Problems (1) Right knee pain Assessment/Plan: -Ice pack Q2h for 15 mins -Already on oxycodone 30 mg Q6H PRN -Added morphine 4 mg IVP Q6H PRN Problems reviewed: Yes Code(s): M25.561 - PAIN IN RIGHT KNEE (2) Constipation Assessment/Plan: -Colace -AXR- cosntipation-large amount of stool -U/S abd pending -Miralax daily -Enema now -relistor 12 mcg daily Problems reviewed: Yes Code(s): K59.00 - CONSTIPATION, UNSPECIFIED (3) Syncope and collapse Assessment/Plan: -Tele monitor -Cardiology consult -Likely vaso vagal -Echo ordered Problems reviewed: Yes Code(s): R55 - SYNCOPE AND COLLAPSE (4) Atrial fibrillation Assessment/Plan: -Chronic -rate controlled -Continue toprol -Continue xarelto Problems reviewed: Yes Code(s): I48.91 - UNSPECIFIED ATRIAL FIBRILLATION (5) Diabetes Assessment/Plan: -A1c at 7.4 -BGM ACHS -ISS -Diabetic low sodium diet Problems reviewed: Yes Code(s): E11.9 - TYPE 2 DIABETES MELLITUS WITHOUT COMPLICATIONS (6) Morbid obesity with BMI of 40.0-44.9, adult Code(s): E66.01 - MORBID (SEVERE) OBESITY DUE TO EXCESS CALORIES; Z68.41 - BODY MASS INDEX (BMI) 40.0-44.9, ADULT (7) Urinary retention Assessment/Plan: -Seen by urology -Vasques cath -Started on tamsulosin -Voiding trial in AM Problems reviewed: Yes Code(s): R33.9 - RETENTION OF URINE, UNSPECIFIED Assessment/Plan see problem list Physical therapy
[2019-04-18] MEDS: Methylnaltrexone Bromide 12 MG/0.6 ML KIT SQ SCH (18:54)
[2019-04-18] MEDS: MELATONIN 5 MG TABLETS PO SCH (21:51)
[2019-04-18] MEDS: LIDOCAINE PATCH REMOVAL MC SCH (21:53)
[2019-04-19] MEDS: MORPHINE SULFATE 2 MG/ML VIAL IVPUSH PRN ×4 (02:18→22:04)
[2019-04-19] MEDS: oxyCODONE HCL 5 MG TABLET PO PRN ×3 (05:37→19:00)
[2019-04-19] MEDS: GABAPENTIN 300 MG CAPSULE PO SCH ×3 (05:38→22:02)
--- NOTE | 2019-04-19 06:56 | DS ---
Physical Examination Vital Signs: Vital Signs Temperature 98.4 F 04/18/19 21:00 Pulse Rate 74 04/19/19 01:00 Respiratory Rate 16 04/19/19 01:00 Blood Pressure 111/63 04/19/19 01:00 O2 Sat by Pulse Oximetry (%) 99 04/18/19 21:00 Findings/Remarks: AWAKE ALERT SHARIF STILL INSERTED SONO OF ABD/BLADDER REVIEWED NO ACUTE CHANGES NO FEVERS Constitutional: Yes: Mild Distress Cardiovascular: Yes: Pulse Irregular Respiratory: Yes: Diminished Gastrointestinal: Yes: Abdomen, Obese Renal/: Yes: Sharif Present Musculoskeletal: Yes: Back Pain, Joint Stiffness, Joint Swelling, Muscle Weakness Extremities: Yes: Other Edema: Yes Edema: LUE: Trace, RUE: Trace, LLE: Trace, RLE: Trace Peripheral Pulses WNL: No Integumentary: Yes: Venous Stasis Changes Wound/Incision: Yes: Open to air Neurological: Yes: Loss of Sensation, Numbness, Paresthesia, Pre-Existing Deficit, Unsteady Gait, Weakness ...Motor Strength: LLE, RLE Psychiatric: Yes: Other Labs: CBC, BMP 04/18/19 05:17 04/16/19 11:20 Discharge Summary Problems reviewed: Yes Reason For Visit: SYNCOPE AND COLLAPSE Current Active Problems Constipation (Acute) Right knee pain (Acute) Syncope and collapse (Acute) Procedures: Principal: CT SCANS/CULTURES/SONO Hospital Course: ADMITTED FOR SYNCOPE, URINARY RETENTION, MORBID OBESITY AND CHRONIC OSTEOARTHRITIS TREATED IN ICU/TELE NO SIGNIFICANT CARDIAC ALARMS, PAIN CONTROL, WILL NEED SNF Goals: ADMIT SNF. PT AND CARDIAC REHAB Condition: Stable - Instructions Diet, Activity, Other Instructions: ISMA SHARIF NOW MONITOR LABS AND URINE OUTPUT OUTPATIENT SNF FOLLOW UP DR SOTO IN 1-2 WEEKS Referrals: Akash Russell MD [Primary Care Provider] - Disposition: [facility] - Home Medications Comprehensive Discharge Medication List: Ambulatory Orders Clopidogrel Bisulfate [Clopidogrel] 75 mg PO DAILY 07/20/17 Digoxin [Lanoxin -] 0.125 mg PO DAILY 07/20/17 Metoprolol Succinate [Toprol XL -] 50 mg PO DAILY 07/20/17 Oxycodone HCl 30 mg PO TID PRN 07/20/17 Insulin Detemir [Levemir Flextouch] 10 unit SQ [facility] #1 insuln.pen MDD 1 Melatonin 5 mg PO HS PRN tab 07/29/17 Rivaroxaban [Xarelto -] 20 mg PO DAILY@1800 tablet 07/29/17 Tamsulosin HCl [Flomax -] 0.4 mg PO DAILY@0830 #30 cap.er.24h MDD 1 07/29/17 Finasteride [Proscar -] 5 mg PO DAILY 09/05/17 Lisinopril [Zestril] 2.5 mg PO DAILY 09/05/17 Simvastatin 20 mg PO DAILY 09/05/17 levETIRAcetam [Keppra Xr -] 750 mg PO DAILY MDD 1 09/05/17 Gabapentin [Neurontin] 600 mg PO HS 03/25/18 Gabapentin 600 mg PO TID #90 tablet 03/26/18 Phenazopyridine HCl [Pyridium -] 100 mg PO TID #90 tablet 03/26/18 Oxycodone HCl [Roxicodone] 30 mg PO QID PRN #40 tablet MDD 8 03/27/18 Clopidogrel Bisulfate [Plavix -] 75 mg PO DAILY tablet 04/19/19 Digoxin [Lanoxin -] 0.25 mg PO DAILY tablet 04/19/19 Docusate Sodium [Colace -] 300 mg PO HS capsule 04/19/19 Gabapentin [Neurontin -] 900 mg PO TID capsule 04/19/19 Insulin Sliding Scale [Novolog Vial Sliding Scale -] 1 vial SQ [facility] units 04/19 Lidocaine 5% Top. Ointment [Xylocaine 5% Top. Ointment -] 1 applic TP BID tube 04/19/19 Lidocaine Patch Removal [Lidoderm Patch Removal] 1 each MC DAILY@0 each 12/27 Mag Hydrox/Al Hydrox/Simeth [Mylanta Oral Suspension -] 30 ml PO Q6H PRN cup Melatonin 10 mg PO HS tab 04/19/19 Methylnaltrexone Bath [Relistor -] 12 mg SQ DAILY kit 04/19/19 Metoprolol Succinate [Toprol XL -] 50 mg PO DAILY tab.sr.24h 04/19/19 Polyethylene Glycol 3350 [Miralax 119 gm Btl -] 17 gm PO BID bottle 04/19/19 Rivaroxaban [Xarelto -] 20 mg PO DAILY@1800 tablet 04/19/19 Tamsulosin HCl [Flomax -] 0.4 mg PO DAILY@0830 cap.er.24h 04/19/19 levETIRAcetam [Levetiracetam -] 750 mg PO DAILY tab.er.24h 04/19/19 oxyCODONE HCL [Roxicodone -] 30 mg PO Q6H PRN tablet MDD 4 04/19/19 Prescription Drug Monitoring Program (I-STOP) results: I-STOP not reviewed
[2019-04-19] MEDS: TAMSULOSIN HCL 0.4 MG CAP PO SCH (08:27)
[2019-04-19] MEDS ORDERED: FUROSEMIDE 40 MG/4 ML INJECTABLE VIAL IVPUSH ONE (08:30)
[2019-04-19] MEDS: MAG HYDROX/AL HYDROX/SIMETH 30 ML UNIT-DOSE CUP PO PRN (08:31)
[2019-04-19] MEDS: ACETAMINOPHEN 325 MG TABLET (FP) PO PRN (08:31)
--- NOTE | 2019-04-19 09:32 | PN ---
Progress Note, Physician Chief Complaint: syncope History of Present Illness: tele: AF denies cp, sob, palp, presyncope - Current Medication List Current Medications: Active Medications Acetaminophen (Tylenol -) 650 mg PO Q6H PRN PRN Reason: PAIN LEVEL 1-5 Last Admin: 04/19/19 08:31 Dose: 650 mg Al Hydroxide/Mg Hydroxide (Mylanta Oral Suspension -) 30 ml PO Q6H PRN PRN Reason: DYSPEPSIA Last Admin: 04/19/19 08:31 Dose: 30 ml Clopidogrel Bisulfate (Plavix -) 75 mg PO DAILY [facility] Last Admin: 04/18/19 09:22 Dose: 75 mg Digoxin (Lanoxin -) 0.25 mg PO DAILY [facility] Last Admin: 04/18/19 09:22 Dose: 0.25 mg Docusate Sodium (Colace -) 300 mg PO [facility] Last Admin: 04/18/19 21:38 Dose: Not Given Gabapentin (Neurontin -) 900 mg PO TID [facility] Last Admin: 04/19/19 05:38 Dose: 900 mg Insulin Aspart (Novolog Vial Sliding Scale -) 1 vial SQ [facility]; Protocol Last Admin: 04/18/19 21:52 Dose: 2 units Levetiracetam (Keppra Xr -) 750 mg PO DAILY [facility] Last Admin: 04/18/19 09:22 Dose: 750 mg Lidocaine HCl (Xylocaine 5% Top. Ointment) 1 applic TP BID [facility] Last Admin: 04/18/19 21:52 Dose: 1 applic Melatonin (Melatonin) 10 mg PO [facility] Last Admin: 04/18/19 21:51 Dose: 10 mg Methylnaltrexone [place] (Relistor -) 12 mg SQ DAILY [facility] Last Admin: 04/18/19 18:54 Dose: 12 mg Metoprolol Succinate (Toprol Xl -) 50 mg PO DAILY [facility] Last Admin: 04/18/19 09:22 Dose: 50 mg Miscellaneous (Lidoderm Patch Removal) 1 each MC DAILY@2200 [facility] Last Admin: 04/18/19 21:53 Dose: Not Given Morphine Sulfate (Morphine Sulfate) 4 mg IVPUSH Q6H PRN PRN Reason: PAIN LEVEL 7 - 10 Last Admin: 04/19/19 08:29 Dose: 4 mg Oxycodone HCl (Roxicodone -) 30 mg PO Q6H PRN PRN Reason: PAIN LEVEL 7 - 10 Last Admin: 04/19/19 05:37 Dose: 30 mg Polyethylene Glycol (Miralax (For Daily Use) -) 17 gm PO BID [facility] Last Admin: 04/18/19 21:38 Dose: Not Given Rivaroxaban (Xarelto) 20 mg PO DAILY@1800 [facility] Last Admin: 04/18/19 17:19 Dose: 20 mg Tamsulosin HCl (Flomax -) 0.4 mg PO DAILY@0830 [facility] Last Admin: 04/19/19 08:27 Dose: 0.4 mg - Objective Vital Signs: Vital Signs Temperature 98.0 F 04/19/19 05:00 Pulse Rate 74 04/19/19 05:00 Respiratory Rate 12 04/19/19 05:00 Blood Pressure 128/65 04/19/19 05:00 O2 Sat by Pulse Oximetry (%) 99 04/18/19 21:00 Constitutional: Yes: No Distress, Calm, Obese Cardiovascular: Yes: Pulse Irregular, S1, S2. No: Gallop, Murmur Respiratory: Yes: Regular, CTA Bilaterally. No: Accessory Muscle Use, Rales, Wheezes Extremities: No: Cold Edema: Yes (1+ pretib) Neurological: Yes: Alert, Oriented Psychiatric: No: Agitated Labs: CBC, BMP 04/18/19 05:17 04/16/19 11:20 INR, PTT INR 2.17 (0.83-1.09) H 04/15/19 19:50 Assessment/Plan Echo 04/29: nl LVSF. RV tds. mild TR. mildly dilated ascending aorta IMP: Mechanical fall after prolonged straining on toilet - sounds vagal Severe dysequilibrium, prior fall AF s/p PPM for tachy candice CAD s/p multivessel PCI (last 01/2017 LAD/D1) Obesity HTN Aortic aneurysm, thoracic REC: -Doubt arrhythmia. Tele with AFib -Pt with chronic dysequilibrium/poor balance x 9 mo, s/p fall down stairs then. 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 hasn't left house during this time. high falls risk, on AC. 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 plan is to cont AC for now--will defer to dr weber re: possible Watchman referral 3. Cont single antiplatelet Rx with Plavix for CAD s/p prior PCI 4. Echo stable, mlid dilation ascending aorta--routine outpt surveillance 5. Continue home rate control medications, Xarelto (20) for AC 6. Dig level OK--same dose 7. BP controlled--same meds
[2019-04-19] MEDS: LIDOCAINE HCL 5% TOP OINTMENT 50 GM TUBE TP SCH ×2 (10:45→22:06)
[2019-04-19] MEDS ORDERED: PT OWN MED DRAWER 7, Y5N ONE (10:46)
[2019-04-19] MEDS: levETIRAcetam XR 750 MG TAB PO SCH (10:52)
[2019-04-19] MEDS: CLOPIDOGREL BISULFATE 75 MG TABLET (FP) PO SCH (10:53)
[2019-04-19] MEDS: DIGOXIN 0.25 MG TABLET (FP) PO SCH (10:53)
[2019-04-19] MEDS: POLYETHYLENE GLYCOL 3350 119 GM BTL PO SCH ×2 (11:12→22:06)
[2019-04-19] MEDS: INSULIN SLIDING SCALE (NOVOLOG) 1 VIAL SQ SCH ×4 (12:12→23:16)
[2019-04-19] MEDS: Methylnaltrexone Bromide 12 MG/0.6 ML KIT SQ SCH (12:17)
[2019-04-19] MEDS: RIVAROXABAN 20 MG TABLET PO SCH (19:00)
[2019-04-19] MEDS ORDERED: INSULIN (NOVOLOG) ASPART 100 UNITS/ML 10ML VIAL ONE (21:26)
[2019-04-19] MEDS: DOCUSATE SODIUM 100 MG CAPSULE (FP) PO SCH (22:01)
[2019-04-19] MEDS: MELATONIN 5 MG TABLETS PO SCH (22:02)
[2019-04-19] MEDS: LIDOCAINE PATCH REMOVAL MC SCH (22:11)
[2019-04-20] MEDS: oxyCODONE HCL 5 MG TABLET PO PRN ×4 (01:08→21:21)
[2019-04-20] MEDS: ACETAMINOPHEN 325 MG TABLET (FP) PO PRN (01:16)
[2019-04-20] MEDS: MAG HYDROX/AL HYDROX/SIMETH 30 ML UNIT-DOSE CUP PO PRN ×2 (01:18→08:04)
[2019-04-20] MEDS ORDERED: morphine SULFATE 4 MG/ML VIAL IVPUSH PRN (06:01)
[2019-04-20] MEDS: GABAPENTIN 300 MG CAPSULE PO SCH ×3 (06:09→21:21)
[2019-04-20] MEDS: INSULIN SLIDING SCALE (NOVOLOG) 1 VIAL SQ SCH ×4 (06:13→22:02)
[2019-04-20] MEDS: CLOPIDOGREL BISULFATE 75 MG TABLET (FP) PO SCH (09:01)
[2019-04-20] MEDS: DIGOXIN 0.25 MG TABLET (FP) PO SCH (09:01)
[2019-04-20] MEDS: Methylnaltrexone Bromide 12 MG/0.6 ML KIT SQ SCH (09:01)
[2019-04-20] MEDS: TAMSULOSIN HCL 0.4 MG CAP PO SCH (09:01)
--- NOTE | 2019-04-20 09:14 | DS ---
Physical Examination Vital Signs: Vital Signs Temperature 98.1 F 04/20/19 05:59 Pulse Rate 82 04/20/19 09:01 Respiratory Rate 20 04/20/19 05:59 Blood Pressure 116/71 04/20/19 05:59 O2 Sat by Pulse Oximetry (%) 98 04/19/19 21:00 Labs: CBC, BMP 04/18/19 05:17 04/16/19 11:20 Discharge Summary Problems reviewed: Yes Reason For Visit: SYNCOPE AND COLLAPSE Current Active Problems Constipation (Acute) Right knee pain (Acute) Syncope and collapse (Acute) Hospital Course: ADMITTED FOR SYNCOPE, URINARY RETENTION, MORBID OBESITY AND CHRONIC OSTEOARTHRITIS TREATED IN ICU/TELE NO SIGNIFICANT CARDIAC ALARMS, PAIN CONTROL, WILL NEED SNF - Problems (1) Right knee pain Assessment/Plan: -Ice pack Q2h for 15 mins -oxycodone 30 mg Q6H PRN Problems reviewed: Yes Code(s): M25.561 - PAIN IN RIGHT KNEE (2) Constipation Assessment/Plan: -Colace -AXR -U/S abd Problems reviewed: Yes Code(s): K59.00 - CONSTIPATION, UNSPECIFIED (3) Syncope and collapse Assessment/Plan: -Tele monitor -Cardiology consult -Likely vaso vagal -Echo ordered Problems reviewed: Yes Code(s): R55 - SYNCOPE AND COLLAPSE (4) Atrial fibrillation Assessment/Plan: -Chronic -rate controlled -Continue toprol -Continue xarelto Problems reviewed: Yes Code(s): I48.91 - UNSPECIFIED ATRIAL FIBRILLATION (5) Diabetes Assessment/Plan: -A1c at 7.4 -BGM ACHS -ISS -Diabetic low sodium diet Problems reviewed: Yes Code(s): E11.9 - TYPE 2 DIABETES MELLITUS WITHOUT COMPLICATIONS (6) Morbid obesity with BMI of 40.0-44.9, adult Problems reviewed: Yes Code(s): E66.01 - MORBID (SEVERE) OBESITY DUE TO EXCESS CALORIES; Z68.41 - BODY MASS INDEX (BMI) 40.0-44.9, ADULT (7) Urinary retention Assessment/Plan: -Seen by urology -dc Sharif cath -Started on tamsulosin -Voiding trial in AM Problems reviewed: Yes Code(s): R33.9 - RETENTION OF URINE, UNSPECIFIED (8) CHF Assessment/Plan: -Lasix 40 daily Goals: ADMIT SNF. PT AND CARDIAC REHAB Condition: Stable - Instructions Diet, Activity, Other Instructions: ISMA SHARIF NOW MONITOR LABS AND URINE OUTPUT OUTPATIENT SNF FOLLOW UP DR SOTO IN 1-2 WEEKS Referrals: Akash Russell MD [Primary Care Provider] - Disposition: RESIDENTIAL FACILITY - Home Medications Comprehensive Discharge Medication List: Ambulatory Orders Clopidogrel Bisulfate [Clopidogrel] 75 mg PO DAILY 07/20/17 Digoxin [Lanoxin -] 0.125 mg PO DAILY 07/20/17 Metoprolol Succinate [Toprol XL -] 50 mg PO DAILY 07/20/17 Oxycodone HCl 30 mg PO TID PRN 07/20/17 Insulin Detemir [Levemir Flextouch] 10 unit SQ ACBK #1 insuln.pen MDD 1 Melatonin 5 mg PO HS PRN tab 07/29/17 Rivaroxaban [Xarelto -] 20 mg PO DAILY@1800 tablet 07/29/17 Tamsulosin HCl [Flomax -] 0.4 mg PO DAILY@0830 #30 cap.er.24h MDD 1 07/29/17 Finasteride [Proscar -] 5 mg PO DAILY 09/05/17 Lisinopril [Zestril] 2.5 mg PO DAILY 09/05/17 Simvastatin 20 mg PO DAILY 09/05/17 levETIRAcetam [Keppra Xr -] 750 mg PO DAILY MDD 1 09/05/17 Gabapentin [Neurontin] 600 mg PO HS 03/25/18 Gabapentin 600 mg PO TID #90 tablet 03/26/18 Phenazopyridine HCl [Pyridium -] 100 mg PO TID #90 tablet 03/26/18 Oxycodone HCl [Roxicodone] 30 mg PO QID PRN #40 tablet MDD 8 03/27/18 Clopidogrel Bisulfate [Plavix -] 75 mg PO DAILY tablet 04/19/19 Digoxin [Lanoxin -] 0.25 mg PO DAILY tablet 04/19/19 Docusate Sodium [Colace -] 300 mg PO HS capsule 04/19/19 Gabapentin [Neurontin -] 900 mg PO TID capsule 04/19/19 Insulin Sliding Scale [Novolog Vial Sliding Scale -] 1 vial SQ [facility]CH[facility] units 04/19 Lidocaine 5% Top. Ointment [Xylocaine 5% Top. Ointment -] 1 applic TP BID tube 04/19/19 Lidocaine Patch Removal [Lidoderm Patch Removal] 1 each MC DAILY@2200 each 12/27 Mag Hydrox/Al Hydrox/Simeth [Mylanta Oral Suspension -] 30 ml PO Q6H PRN cup Melatonin 10 mg PO HS tab 04/19/19 Methylnaltrexone [place] [Relistor -] 12 mg SQ DAILY kit 04/19/19 Metoprolol Succinate [Toprol XL -] 50 mg PO DAILY tab.sr.24h 04/19/19 Polyethylene Glycol 3350 [Miralax 119 gm Btl -] 17 gm PO BID bottle 04/19/19 Rivaroxaban [Xarelto -] 20 mg PO DAILY@1800 tablet 04/19/19 Tamsulosin HCl [Flomax -] 0.4 mg PO DAILY@0830 cap.er.24h 04/19/19 levETIRAcetam [Levetiracetam -] 750 mg PO DAILY tab.er.24h 04/19/19 oxyCODONE HCL [Roxicodone -] 30 mg PO Q6H PRN tablet MDD 4 04/19/19
[2019-04-20] MEDS: levETIRAcetam XR 750 MG TAB PO SCH (10:17)
[2019-04-20] MEDS: FUROSEMIDE 40 MG TABLET (FP) PO SCH (10:43)
[2019-04-20] MEDS: POLYETHYLENE GLYCOL 3350 119 GM BTL PO SCH ×2 (10:43→21:51)
--- NOTE | 2019-04-20 11:19 | PN ---
Progress Note (short form) - Note Progress Note: s: no cp, palps, dizziness Current Medications Acetaminophen (Tylenol -) 650 mg PO Q6H PRN PRN Reason: PAIN LEVEL 1-5 Last Admin: 04/20/19 01:16 Dose: 650 mg Al Hydroxide/Mg Hydroxide (Mylanta Oral Suspension -) 30 ml PO Q6H PRN PRN Reason: DYSPEPSIA Last Admin: 04/20/19 08:04 Dose: 30 ml Clopidogrel Bisulfate (Plavix -) 75 mg PO DAILY [facility] Last Admin: 04/20/19 09:01 Dose: 75 mg Digoxin (Lanoxin -) 0.25 mg PO DAILY [facility] Last Admin: 04/20/19 09:01 Dose: 0.25 mg Docusate Sodium (Colace -) 300 mg PO [facility] Last Admin: 04/19/19 22:01 Dose: 200 mg Furosemide (Lasix -) 40 mg PO DAILY [facility] Last Admin: 04/20/19 10:43 Dose: 40 mg Gabapentin (Neurontin -) 900 mg PO TID [facility] Last Admin: 04/20/19 06:09 Dose: 900 mg Insulin Aspart (Novolog Vial Sliding Scale -) 1 vial SQ [facility]; Protocol Last Admin: 04/20/19 06:13 Dose: 4 units Levetiracetam (Keppra Xr -) 750 mg PO DAILY [facility] Last Admin: 04/19/19 10:52 Dose: 750 mg Lidocaine HCl (Xylocaine 5% Top. Ointment) 1 applic TP BID [facility] Last Admin: 04/19/19 22:06 Dose: 1 applic Melatonin (Melatonin) 10 mg PO [facility] Last Admin: 04/19/19 22:02 Dose: 10 mg Methylnaltrexone [place] (Relistor -) 12 mg SQ DAILY [facility] Last Admin: 04/20/19 09:01 Dose: 12 mg Metoprolol Succinate (Toprol Xl -) 50 mg PO DAILY [facility] Last Admin: 04/20/19 09:01 Dose: 50 mg Miscellaneous (Lidoderm Patch Removal) 1 each MC DAILY@2200 [facility] Last Admin: 04/19/19 22:11 Dose: Not Given Oxycodone HCl (Roxicodone -) 30 mg PO Q6H PRN PRN Reason: PAIN LEVEL 7 - 10 Last Admin: 04/20/19 08:03 Dose: 30 mg Polyethylene Glycol (Miralax (For Daily Use) -) 17 gm PO BID [facility] Last Admin: 04/20/19 10:43 Dose: 17 gm Rivaroxaban (Xarelto) 20 mg PO DAILY@1800 [facility] Last Admin: 04/19/19 19:00 Dose: 20 mg Tamsulosin HCl (Flomax -) 0.4 mg PO DAILY@0830 [facility] Last Admin: 04/20/19 09:01 Dose: 0.4 mg Vital Signs Period Temp Pulse Resp BP Sys/Mixon Pulse Ox Last 24 Hr 98 F-98.5 F 74-92 14-20 100-123/60-83 98 Constitutional: Yes: No Distress, Calm, Obese Cardiovascular: Yes: Pulse Irregular, S1, S2. No: Gallop, Murmur Respiratory: Yes: Regular, CTA Bilaterally. No: Accessory Muscle Use, Rales, Wheezes Extremities: No: Cold Edema: Yes (1+ pretib) Neurological: Yes: Alert, Oriented Psychiatric: No: Agitated Assessment/Plan Echo 04/29: nl LVSF. RV tds. mild TR. mildly dilated ascending aorta IMP: Mechanical fall after prolonged straining on toilet - sounds vagal Severe dysequilibrium, prior fall AF s/p PPM for tachy candice CAD s/p multivessel PCI (last 01/2017 LAD/D1) Obesity HTN Aortic aneurysm, thoracic REC: -Doubt arrhythmia. Tele with AFib -Pt with chronic dysequilibrium/poor balance x 9 mo, s/p fall down stairs then. 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 hasn't left house during this time. high falls risk, on AC. 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 plan is to cont AC for now--will defer to dr weber re: possible Watchman referral as outpatient 3. Cont single antiplatelet Rx with Plavix for CAD s/p prior PCI 4. Echo stable, mlid dilation ascending aorta--routine outpt surveillance 5. Continue home rate control medications, Xarelto (20) for AC 6. Dig level OK--same dose 7. BP controlled--same meds
[2019-04-20] MEDS: LIDOCAINE HCL 5% TOP OINTMENT 50 GM TUBE TP SCH (12:17)
[2019-04-20] MEDS: RIVAROXABAN 20 MG TABLET PO SCH (18:07)
[2019-04-20] MEDS ORDERED: PT OWN MED DRAWER 7, Y5N ONE (20:13)
[2019-04-20] MEDS: MELATONIN 5 MG TABLETS PO SCH (21:19)
[2019-04-20] MEDS: DOCUSATE SODIUM 100 MG CAPSULE (FP) PO SCH (21:19)
[2019-04-20] MEDS: LIDOCAINE PATCH REMOVAL MC SCH (22:46)
[2019-04-21] MEDS: LIDOCAINE HCL 5% TOP OINTMENT 50 GM TUBE TP SCH ×3 (01:24→21:53)
[2019-04-21] MEDS: oxyCODONE HCL 5 MG TABLET PO PRN ×3 (04:52→23:55)
[2019-04-21] MEDS: GABAPENTIN 300 MG CAPSULE PO SCH ×3 (06:00→21:44)
[2019-04-21] MEDS: INSULIN SLIDING SCALE (NOVOLOG) 1 VIAL SQ SCH ×4 (06:04→21:55)
--- NOTE | 2019-04-21 08:24 | DS ---
Physical Examination Vital Signs: Vital Signs Temperature 98.2 F 04/20/19 18:00 Pulse Rate 91 H 04/21/19 05:22 Respiratory Rate 18 04/21/19 05:22 Blood Pressure 105/73 04/21/19 05:22 O2 Sat by Pulse Oximetry (%) 98 04/20/19 21:00 Cardiovascular: Yes: S1, S2 Respiratory: Yes: Regular, CTA Bilaterally Gastrointestinal: Yes: Normal Bowel Sounds, Soft Labs: CBC, BMP 04/18/19 05:17 04/16/19 11:20 Discharge Summary Problems reviewed: Yes Reason For Visit: SYNCOPE AND COLLAPSE Current Active Problems Constipation (Acute) Right knee pain (Acute) Syncope and collapse (Acute) Hospital Course: ADMITTED FOR SYNCOPE, URINARY RETENTION, MORBID OBESITY AND CHRONIC OSTEOARTHRITIS TREATED IN ICU/TELE NO SIGNIFICANT CARDIAC ALARMS, PAIN CONTROL, WILL NEED SNF - Problems (1) Right knee pain Assessment/Plan: -Ice pack Q2h for 15 mins -oxycodone 30 mg Q6H PRN Problems reviewed: Yes Code(s): M25.561 - PAIN IN RIGHT KNEE (2) Constipation Assessment/Plan: -Colace -AXR -U/S abd Problems reviewed: Yes Code(s): K59.00 - CONSTIPATION, UNSPECIFIED (3) Syncope and collapse Assessment/Plan: -Tele monitor -Cardiology consult -Likely vaso vagal -Echo ordered Problems reviewed: Yes Code(s): R55 - SYNCOPE AND COLLAPSE (4) Atrial fibrillation Assessment/Plan: -Chronic -rate controlled -Continue toprol -Continue xarelto Problems reviewed: Yes Code(s): I48.91 - UNSPECIFIED ATRIAL FIBRILLATION (5) Diabetes Assessment/Plan: -A1c at 7.4 -BGM ACHS -ISS -Diabetic low sodium diet Problems reviewed: Yes Code(s): E11.9 - TYPE 2 DIABETES MELLITUS WITHOUT COMPLICATIONS (6) Morbid obesity with BMI of 40.0-44.9, adult Problems reviewed: Yes Code(s): E66.01 - MORBID (SEVERE) OBESITY DUE TO EXCESS CALORIES; Z68.41 - BODY MASS INDEX (BMI) 40.0-44.9, ADULT (7) Urinary retention Assessment/Plan: -Seen by urology -dc Sharif cath -Started on tamsulosin -Voiding trial in AM Problems reviewed: Yes Code(s): R33.9 - RETENTION OF URINE, UNSPECIFIED (8) CHF Assessment/Plan: -Lasix 40 daily Goals: ADMIT SNF. PT AND CARDIAC REHAB Condition: Stable - Instructions Diet, Activity, Other Instructions: ISMA SHARIF NOW MONITOR LABS AND URINE OUTPUT OUTPATIENT SNF FOLLOW UP DR SOTO IN 1-2 WEEKS Referrals: Akash Russell MD [Primary Care Provider] - Disposition: SNF FACILITY - Home Medications Comprehensive Discharge Medication List: Ambulatory Orders Clopidogrel Bisulfate [Clopidogrel] 75 mg PO DAILY 07/20/17 Digoxin [Lanoxin -] 0.125 mg PO DAILY 07/20/17 Metoprolol Succinate [Toprol XL -] 50 mg PO DAILY 07/20/17 Oxycodone HCl 30 mg PO TID PRN 07/20/17 Insulin Detemir [Levemir Flextouch] 10 unit SQ ACBK #1 insuln.pen MDD 1 Melatonin 5 mg PO HS PRN tab 07/29/17 Rivaroxaban [Xarelto -] 20 mg PO DAILY@1800 tablet 07/29/17 Tamsulosin HCl [Flomax -] 0.4 mg PO DAILY@0830 #30 cap.er.24h MDD 1 07/29/17 Finasteride [Proscar -] 5 mg PO DAILY 09/05/17 Lisinopril [Zestril] 2.5 mg PO DAILY 09/05/17 Simvastatin 20 mg PO DAILY 09/05/17 levETIRAcetam [Keppra Xr -] 750 mg PO DAILY MDD 1 09/05/17 Gabapentin [Neurontin] 600 mg PO HS 03/25/18 Gabapentin 600 mg PO TID #90 tablet 03/26/18 Phenazopyridine HCl [Pyridium -] 100 mg PO TID #90 tablet 03/26/18 Oxycodone HCl [Roxicodone] 30 mg PO QID PRN #40 tablet MDD 8 03/27/18 Clopidogrel Bisulfate [Plavix -] 75 mg PO DAILY tablet 04/19/19 Digoxin [Lanoxin -] 0.25 mg PO DAILY tablet 04/19/19 Docusate Sodium [Colace -] 300 mg PO HS capsule 04/19/19 Gabapentin [Neurontin -] 900 mg PO TID capsule 04/19/19 Insulin Sliding Scale [Novolog Vial Sliding Scale -] 1 vial SQ ACHS units 04/19 Lidocaine 5% Top. Ointment [Xylocaine 5% Top. Ointment -] 1 applic TP BID tube 04/19/19 Lidocaine Patch Removal [Lidoderm Patch Removal] 1 each MC DAILY@2200 each 12/27 Mag Hydrox/Al Hydrox/Simeth [Mylanta Oral Suspension -] 30 ml PO Q6H PRN cup Melatonin 10 mg PO HS tab 04/19/19 Methylnaltrexone [place] [Relistor -] 12 mg SQ DAILY kit 04/19/19 Metoprolol Succinate [Toprol XL -] 50 mg PO DAILY tab.sr.24h 04/19/19 Polyethylene Glycol 3350 [Miralax 119 gm Btl -] 17 gm PO BID bottle 04/19/19 Rivaroxaban [Xarelto -] 20 mg PO DAILY@1800 tablet 04/19/19 Tamsulosin HCl [Flomax -] 0.4 mg PO DAILY@0830 cap.er.24h 04/19/19 levETIRAcetam [Levetiracetam -] 750 mg PO DAILY tab.er.24h 04/19/19 oxyCODONE HCL [Roxicodone -] 30 mg PO Q6H PRN tablet MDD 4 04/19/19
[2019-04-21] MEDS ORDERED: PT OWN MED DRAWER 7, Y5N ONE (09:33)
[2019-04-21] MEDS: FUROSEMIDE 40 MG TABLET (FP) PO SCH (09:50)
[2019-04-21] MEDS: DIGOXIN 0.25 MG TABLET (FP) PO SCH (09:50)
[2019-04-21] MEDS: TAMSULOSIN HCL 0.4 MG CAP PO SCH (09:50)
[2019-04-21] MEDS: POLYETHYLENE GLYCOL 3350 119 GM BTL PO SCH ×2 (09:51→21:45)
[2019-04-21] MEDS: levETIRAcetam XR 750 MG TAB PO SCH (09:51)
[2019-04-21] MEDS: CLOPIDOGREL BISULFATE 75 MG TABLET (FP) PO SCH (09:51)
[2019-04-21] MEDS: Methylnaltrexone Bromide 12 MG/0.6 ML KIT SQ SCH (09:51)
[2019-04-21] MEDS: ACETAMINOPHEN 325 MG TABLET (FP) PO PRN ×2 (10:02→18:25)
--- NOTE | 2019-04-21 10:45 | PN ---
Progress Note (short form) - Note Progress Note: s: no cp, palps, dizziness. complains of LUE swelling Current Medications Acetaminophen (Tylenol -) 650 mg PO Q6H PRN PRN Reason: PAIN LEVEL 1-5 Last Admin: 04/21/19 10:02 Dose: 650 mg Al Hydroxide/Mg Hydroxide (Mylanta Oral Suspension -) 30 ml PO Q6H PRN PRN Reason: DYSPEPSIA Last Admin: 04/20/19 08:04 Dose: 30 ml Clopidogrel Bisulfate (Plavix -) 75 mg PO DAILY [facility] Last Admin: 04/21/19 09:51 Dose: 75 mg Digoxin (Lanoxin -) 0.25 mg PO DAILY [facility] Last Admin: 04/21/19 09:50 Dose: 0.25 mg Docusate Sodium (Colace -) 300 mg PO [facility] Last Admin: 04/20/19 21:19 Dose: 300 mg Furosemide (Lasix -) 40 mg PO DAILY [facility] Last Admin: 04/21/19 09:50 Dose: 40 mg Gabapentin (Neurontin -) 900 mg PO TID [facility] Last Admin: 04/21/19 06:00 Dose: 900 mg Insulin Aspart (Novolog Vial Sliding Scale -) 1 vial SQ [facility]; Protocol Last Admin: 04/21/19 06:04 Dose: 6 units Levetiracetam (Keppra Xr -) 750 mg PO DAILY [facility] Last Admin: 04/21/19 09:51 Dose: 750 mg Lidocaine HCl (Xylocaine 5% Top. Ointment) 1 applic TP BID [facility] Last Admin: 04/21/19 10:04 Dose: 1 applic Melatonin (Melatonin) 10 mg PO [facility] Last Admin: 04/20/19 21:19 Dose: 10 mg Methylnaltrexone [place] (Relistor -) 12 mg SQ DAILY [facility] Last Admin: 04/21/19 09:51 Dose: Not Given Metoprolol Succinate (Toprol Xl -) 50 mg PO DAILY [facility] Last Admin: 04/21/19 09:50 Dose: 50 mg Miscellaneous (Lidoderm Patch Removal) 1 each MC DAILY@2200 [facility] Last Admin: 04/20/19 22:46 Dose: Not Given Oxycodone HCl (Roxicodone -) 30 mg PO Q6H PRN PRN Reason: PAIN LEVEL 7 - 10 Last Admin: 04/21/19 04:52 Dose: 30 mg Polyethylene Glycol (Miralax (For Daily Use) -) 17 gm PO BID [facility] Last Admin: 04/21/19 09:51 Dose: Not Given Rivaroxaban (Xarelto) 20 mg PO DAILY@1800 [facility] Last Admin: 04/20/19 18:07 Dose: 20 mg Tamsulosin HCl (Flomax -) 0.4 mg PO DAILY@0830 [facility] Last Admin: 04/21/19 09:50 Dose: 0.4 mg Vital Signs Period Temp Pulse Resp BP Sys/Mixon Pulse Ox Last 24 Hr 98.0 F-99.0 F 91-103 - 105-135/61-82 98 Constitutional: Yes: No Distress, Calm, Obese Cardiovascular: Yes: Pulse Irregular, S1, S2. No: Gallop, Murmur Respiratory: Yes: Regular, CTA Bilaterally. No: Accessory Muscle Use, Rales, Wheezes Extremities: No: Cold Edema: Yes (1+ pretib) Neurological: Yes: Alert, Oriented Psychiatric: No: Agitated Assessment/Plan Echo 04/29: nl LVSF. RV tds. mild TR. mildly dilated ascending aorta IMP: Mechanical fall after prolonged straining on toilet - sounds vagal Severe dysequilibrium, prior fall AF s/p PPM for tachy candice CAD s/p multivessel PCI (last 01/2017 LAD/D1) Obesity HTN Aortic aneurysm, thoracic REC: -Doubt arrhythmia. Tele with AFib -Pt with chronic dysequilibrium/poor balance x 9 mo, s/p fall down stairs then. no falls since until DOA though very wobbly even with walker (only has [employer] x 3 hrs). hasn't left house during this time. high falls risk, on AC. 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 plan is to cont AC for now--will defer to dr weber re: possible Watchman referral as outpatient 3. Cont single antiplatelet Rx with Plavix for CAD s/p prior PCI 4. Echo stable, mlid dilation ascending aorta--routine outpt surveillance 5. Continue home rate control medications, Xarelto (20) for AC 6. Dig level OK--same dose 7. BP controlled--same meds 8. complains of LUE swelling, otherwise no edema, dyspnea. check upper ext venous doppler
[2019-04-21] MEDS: RIVAROXABAN 20 MG TABLET PO SCH (17:18)
[2019-04-21] MEDS: DOCUSATE SODIUM 100 MG CAPSULE (FP) PO SCH (21:44)
[2019-04-21] MEDS: MELATONIN 5 MG TABLETS PO SCH (21:44)
[2019-04-21] MEDS: LIDOCAINE PATCH REMOVAL MC SCH (21:45)
[2019-04-22] MEDS: oxyCODONE HCL 5 MG TABLET PO PRN ×2 (05:27→10:32)
[2019-04-22] MEDS: GABAPENTIN 300 MG CAPSULE PO SCH (05:28)
[2019-04-22] MEDS: INSULIN SLIDING SCALE (NOVOLOG) 1 VIAL SQ SCH (07:17)
--- NOTE | 2019-04-22 08:45 | DS ---
Physical Examination Vital Signs: Vital Signs Temperature 98.6 F 04/22/19 04:33 Pulse Rate 103 H 04/22/19 04:33 Respiratory Rate 15 04/22/19 04:33 Blood Pressure 128/67 04/22/19 04:33 O2 Sat by Pulse Oximetry (%) 98 04/21/19 20:24 Cardiovascular: Yes: S1, S2 Respiratory: Yes: Regular, CTA Bilaterally Gastrointestinal: Yes: Normal Bowel Sounds, Soft Labs: CBC, BMP 04/18/19 05:17 04/16/19 11:20 Discharge Summary Problems reviewed: Yes Reason For Visit: SYNCOPE AND COLLAPSE Current Active Problems Constipation (Acute) Right knee pain (Acute) Syncope and collapse (Acute) Hospital Course: ADMITTED FOR SYNCOPE, URINARY RETENTION, MORBID OBESITY AND CHRONIC OSTEOARTHRITIS TREATED IN ICU/TELE NO SIGNIFICANT CARDIAC ALARMS, PAIN CONTROL, WILL NEED SNF - Problems (1) Right knee pain Assessment/Plan: -Ice pack Q2h for 15 mins -oxycodone 30 mg Q6H PRN Problems reviewed: Yes Code(s): M25.561 - PAIN IN RIGHT KNEE (2) Constipation Assessment/Plan: -Colace -AXR -U/S abd Problems reviewed: Yes Code(s): K59.00 - CONSTIPATION, UNSPECIFIED (3) Syncope and collapse Assessment/Plan: -Tele monitor -Cardiology consult -Likely vaso vagal -Echo ordered Problems reviewed: Yes Code(s): R55 - SYNCOPE AND COLLAPSE (4) Atrial fibrillation Assessment/Plan: -Chronic -rate controlled -Continue toprol -Continue xarelto Problems reviewed: Yes Code(s): I48.91 - UNSPECIFIED ATRIAL FIBRILLATION (5) Diabetes Assessment/Plan: -A1c at 7.4 -BGM ACHS -ISS -Diabetic low sodium diet Problems reviewed: Yes Code(s): E11.9 - TYPE 2 DIABETES MELLITUS WITHOUT COMPLICATIONS (6) Morbid obesity with BMI of 40.0-44.9, adult Problems reviewed: Yes Code(s): E66.01 - MORBID (SEVERE) OBESITY DUE TO EXCESS CALORIES; Z68.41 - BODY MASS INDEX (BMI) 40.0-44.9, ADULT (7) Urinary retention Assessment/Plan: -Seen by urology -dc Sharif cath -Started on tamsulosin -Voiding trial in AM Problems reviewed: Yes Code(s): R33.9 - RETENTION OF URINE, UNSPECIFIED (8) CHF Assessment/Plan: -Lasix 40 daily Goals: ADMIT SNF. PT AND CARDIAC REHAB Condition: Stable - Instructions Diet, Activity, Other Instructions: ISMA SHARIF NOW MONITOR LABS AND URINE OUTPUT OUTPATIENT SNF FOLLOW UP DR SOTO IN 1-2 WEEKS Referrals: Akash Russell MD [Primary Care Provider] - Disposition: [facility] - Home Medications Comprehensive Discharge Medication List: Ambulatory Orders Clopidogrel Bisulfate [Clopidogrel] 75 mg PO DAILY 07/20/17 Digoxin [Lanoxin -] 0.125 mg PO DAILY 07/20/17 Metoprolol Succinate [Toprol XL -] 50 mg PO DAILY 07/20/17 Oxycodone HCl 30 mg PO TID PRN 07/20/17 Insulin Detemir [Levemir Flextouch] 10 unit SQ ACBK #1 insuln.pen MDD 1 Melatonin 5 mg PO HS PRN tab 07/29/17 Rivaroxaban [Xarelto -] 20 mg PO DAILY@1800 tablet 07/29/17 Tamsulosin HCl [Flomax -] 0.4 mg PO DAILY@0830 #30 cap.er.24h MDD 1 07/29/17 Finasteride [Proscar -] 5 mg PO DAILY 09/05/17 Lisinopril [Zestril] 2.5 mg PO DAILY 09/05/17 Simvastatin 20 mg PO DAILY 09/05/17 levETIRAcetam [Keppra Xr -] 750 mg PO DAILY MDD 1 09/05/17 Gabapentin [Neurontin] 600 mg PO HS 03/25/18 Gabapentin 600 mg PO TID #90 tablet 03/26/18 Phenazopyridine HCl [Pyridium -] 100 mg PO TID #90 tablet 03/26/18 Oxycodone HCl [Roxicodone] 30 mg PO QID PRN #40 tablet MDD 8 03/27/18 Clopidogrel Bisulfate [Plavix -] 75 mg PO DAILY tablet 04/19/19 Digoxin [Lanoxin -] 0.25 mg PO DAILY tablet 04/19/19 Docusate Sodium [Colace -] 300 mg PO HS capsule 04/19/19 Gabapentin [Neurontin -] 900 mg PO TID capsule 04/19/19 Insulin Sliding Scale [Novolog Vial Sliding Scale -] 1 vial SQ ACHS units 04/19 Lidocaine 5% Top. Ointment [Xylocaine 5% Top. Ointment -] 1 applic TP BID tube 04/19/19 Lidocaine Patch Removal [Lidoderm Patch Removal] 1 each MC DAILY@2200 each 12/27 Mag Hydrox/Al Hydrox/Simeth [Mylanta Oral Suspension -] 30 ml PO Q6H PRN cup Melatonin 10 mg PO HS tab 04/19/19 Methylnaltrexone [place] [Relistor -] 12 mg SQ DAILY kit 04/19/19 Metoprolol Succinate [Toprol XL -] 50 mg PO DAILY tab.sr.24h 04/19/19 Polyethylene Glycol 3350 [Miralax 119 gm Btl -] 17 gm PO BID bottle 04/19/19 Rivaroxaban [Xarelto -] 20 mg PO DAILY@1800 tablet 04/19/19 Tamsulosin HCl [Flomax -] 0.4 mg PO DAILY@0830 cap.er.24h 04/19/19 levETIRAcetam [Levetiracetam -] 750 mg PO DAILY tab.er.24h 04/19/19 oxyCODONE HCL [Roxicodone -] 30 mg PO Q6H PRN tablet MDD 4 04/19/19
[2019-04-22 09:17] VITALS: BP 125/80; TEMP 98.2
[2019-04-22] MEDS: CLOPIDOGREL BISULFATE 75 MG TABLET (FP) PO SCH (10:34)
[2019-04-22] MEDS: TAMSULOSIN HCL 0.4 MG CAP PO SCH (10:34)
[2019-04-22] MEDS: FUROSEMIDE 40 MG TABLET (FP) PO SCH (10:34)
[2019-04-22] MEDS: Methylnaltrexone Bromide 12 MG/0.6 ML KIT SQ SCH (10:35)
[2019-04-22] MEDS: POLYETHYLENE GLYCOL 3350 119 GM BTL PO SCH (10:35)
[2019-04-22] MEDS: LIDOCAINE HCL 5% TOP OINTMENT 50 GM TUBE TP SCH (10:37)
[2019-04-22] MEDS ORDERED: PT OWN MED DRAWER 7, Y5N ONE (10:41)
[2019-04-22 10:42] VITALS: PULSE 111
[2019-04-22] MEDS: DIGOXIN 0.25 MG TABLET (FP) PO SCH (10:42)
[2019-04-22] MEDS: levETIRAcetam XR 750 MG TAB PO SCH (10:43)
--- NOTE | 2019-04-22 11:08 | PN ---
Progress Note (short form) - Note Progress Note: s: no cp, palps, dizziness sob Vital Signs Period Temp Pulse Resp BP Sys/[place]ixon Pulse Ox Last 24 Hr 98.2 F-100 F 80-111 12-22 111-140/67-106 98-98 2 Constitutional: Yes: No Distress, Calm, Obese Cardiovascular: Yes: Pulse Irregular, S1, S2. No: Gallop, Murmur Respiratory: Yes: Regular, CTA Bilaterally. No: Accessory Muscle Use, Rales, Wheezes Extremities: No: Cold Edema: Yes (1+ pretib) Neurological: Yes: Alert, Oriented Psychiatric: No: Agitated no jaundice diaphoresis Laboratory Last Values WBC 6.2 K/mm3 (4.0-10.0) 04/18/19 05:17 RBC 3.84 M/mm3 (4.00-5.60) L 04/18/19 05:17 Hgb 12.4 GM/dL (11.7-16.9) 04/18/19 05:17 Hct 35.5 % (35.4-49) 04/18/19 05:17 MCV 92.4 fl (80-96) 04/18/19 05:17 MCH 32.3 pg (25.7-33.7) 04/18/19 05:17 MCHC 34.9 g/dl (32.0-35.9) 04/18/19 05:17 RDW 13.5 % (11.9-15.9) 04/18/19 05:17 Plt Count 150 K/MM3 (134-434) 04/18/19 05:17 MPV 7.6 fl (7.5-11.1) 04/18/19 05:17 Absolute Neuts (auto) 2.7 K/mm3 (1.5-8.0) 04/18/19 05:17 Neutrophils % 43.7 % (42.8-82.8) D 04/18/19 05:17 Lymphocytes % 40.6 % (8-40) H D 04/18/19 05:17 Monocytes % 9.9 % (3.8-10.2) 04/18/19 05:17 Eosinophils % 5.3 % (0-4.5) H 04/18/19 05:17 Basophils % 0.5 % (0-2.0) 04/18/19 05:17 Nucleated RBC % 0 % (0-0) 04/18/19 05:17 PT with INR 25.80 SEC (9.7-13.0) H 04/15/19 19:50 INR 2.17 (0.83-1.09) H 04/15/19 19:50 PTT (Actin FS) 43.7 SECONDS (25.2-36.5) H 04/15/19 19:50 Sodium 138 mmol/L (136-145) 04/16/19 11:20 Potassium 4.1 mmol/L (3.5-5.1) 04/16/19 11:20 Chloride 106 mmol/L (98-107) 04/16/19 11:20 Carbon Dioxide 27 mmol/L (21-32) 04/16/19 11:20 Anion Gap 5 MMOL/L (8-16) L 04/16/19 11:20 BUN 21.9 mg/dL (7-18) H 04/16/19 11:20 Creatinine 1.0 mg/dL (0.55-1.3) 04/16/19 11:20 Est GFR (CKD-EPI)AfAm 91.78 04/16/19 11:20 Est GFR (CKD-EPI)NonAf 79.19 04/16/19 11:20 POC Glucometer 194 UNITS (80-120) 04/22/19 05:35 Random Glucose 182 mg/dL (74-106) H 04/16/19 11:20 Hemoglobin A1c % 7.4 % (4.2-6.3) H 04/16/19 11:20 Calcium 8.2 mg/dL (8.5-10.1) L 04/16/19 11:20 Phosphorus 2.8 mg/dL (2.5-4.9) 04/16/19 11:20 Magnesium 1.7 mg/dL (1.8-2.4) L 04/16/19 11:20 Total Bilirubin 0.9 mg/dL (0.2-1) 04/15/19 19:50 AST 27 U/L (15-37) 04/15/19 19:50 ALT 32 U/L (13-61) 04/15/19 19:50 Alkaline Phosphatase 72 U/L (45-117) 04/15/19 19:50 Creatine Kinase 95 U/L (26-308) 04/15/19 19:50 Troponin I < 0.02 ng/ml (0.00-0.05) 04/16/19 11:20 Total Protein 7.2 g/dl (6.4-8.2) 04/15/19 19:50 Albumin 3.5 g/dl (3.4-5.0) 04/15/19 19:50 TSH 0.75 uIU/ml (0.358-3.74) D 04/16/19 11:20 Urine Color [place] 04/16/19 05:30 Urine Appearance Turbid 04/16/19 05:30 Urine pH 5.0 (5.0-8.0) D 04/16/19 05:30 Ur Specific [place] 1.027 (1.010-1.035) 04/16/19 05:30 Urine Protein 1+ (NEGATIVE) H 04/16/19 05:30 Urine Glucose (UA) 1+ (NEGATIVE) H 04/16/19 05:30 Urine Ketones Negative (NEGATIVE) 04/16/19 05:30 Urine Blood 3+ (NEGATIVE) H 04/16/19 05:30 Urine Nitrite Negative (NEGATIVE) 04/16/19 05:30 Urine Bilirubin 1+ (NEGATIVE) H 04/16/19 05:30 Urine Urobilinogen 1.0 mg/dL (0.2-1.0) 04/16/19 05:30 Ur Leukocyte Esterase 1+ (NEGATIVE) H 04/16/19 05:30 Urine WBC (Auto) 6 /hpf (0-5) 04/16/19 05:30 Urine RBC (Auto) 63.5 /hpf (0-4) 04/16/19 05:30 Urine Casts (Auto) 12 /lpf (0-8) 04/16/19 05:30 U Epithel Cells (Auto) 4.4 /HPF (0-5/HPF) 04/16/19 05:30 Urine Bacteria (Auto) 13.6 /hpf (NEGATIVE) 04/16/19 05:30 Urine Yeast (Auto) None seen (NEGATIVE) 04/16/19 05:30 Digoxin 0.76 ng/ml (0.8-2.0) L 04/16/19 11:20 Influenza A (Rapid) Negative (Negative) 04/16/19 22:30 Influenza B (Rapid) Negative (Negative) 04/16/19 22:30 Blood Type O POSITIVE 04/15/19 19:50 Antibody Screen Negative 04/15/19 19:50 Assessment/Plan Echo 04/29: nl LVSF. RV tds. mild TR. mildly dilated ascending aorta tele: afib with rvr at times IMP: Mechanical fall after prolonged straining on toilet - sounds vagal Severe dysequilibrium, prior fall AF s/p PPM for tachy candice CAD s/p multivessel PCI (last 01/2017 LAD/D1) Obesity HTN Aortic aneurysm, thoracic REC: -Pt with chronic dysequilibrium/poor balance x 9 mo, s/p fall down stairs then. no falls since until DOA though very wobbly even with walker (only has RADIO COMMENTATOR x 3 hrs). hasn't left house during this time. high falls risk, on AC. 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 plan is to cont AC for now--will defer to dr weber re: possible [facility] referral as outpatient 3. Cont single antiplatelet Rx with Plavix for CAD s/p prior PCI 4. Echo stable, mlid dilation ascending aorta--routine outpt surveillance 5. Rate fast at times, will increase toprol to 100 qd from 50 qd 6. Dig level OK--same dose 7. BP controlled on current meds
[2019-04-22 11:19] VITALS: BMI 45.3
== END 2019-04-22 12:25 | DRG 312 ==
LOC: JER 18:51 → SUPCPDRO 18:51 → JERBED 23:27 → J2W 04-16 04:53 → OBSVTOIN 04-19 10:40
PROVIDERS: ADMIT Internal Medicine; ATTEND Family Medicine
DX: R55 Syncope and collapse (principal); I50.32 Chronic diastolic (congestive) heart failure; K59.00 Constipation, unspecified; E66.01 Morbid (severe) obesity due to excess calories; M25.561 Pain in right knee; I48.91 Unspecified atrial fibrillation; E11.9 Type 2 diabetes mellitus without complications; R33.9 Retention of urine, unspecified; W19.XXXA Unspecified fall, initial encounter; I25.10 Atherosclerotic heart disease of native coronary artery without angina pectoris; Z95.5 Presence of coronary angioplasty implant and graft; I10 Essential (primary) hypertension
CPT/HCPCS: 36415; 70450-TC; 71045-TC-FY; 72125-TC; 73030-TC-LT-FY; 73562-TC-RT-FY; 74019-TC-FY; 76700-TC; 76856-TC; 80048; 80053; 80162; 81003; 82550; 82962; 83036; 83735; 84100; 84443; 84484; 85025; 85610; 85730; 86850; 86900; 86901; 87086; 87804; 93005; 93010; 93306-TC; 97116-GP; 97161-GP; 99285-25; G0378

== ENCOUNTER 2019-09-09 20:29 | Inpatient (IN) | payer OTHER ==
[2019-09-09] MEDS ORDERED: ACETAMINOPHEN 1000 MG/100 ML VIAL (NON FORMULARY) IVPB ONE (20:46)
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
[2019-09-09] MEDS ORDERED: oxyCODONE HCL 5 MG TABLET PO ONE (20:53)
--- NOTE | 2019-09-09 21:35 | PDOC ---
Documentation entered by Lorrie West SCRIBE, acting as scribe for Peter Pineda MD. Peter Pineda MD: This documentation has been prepared by the Brett kamara Lincy, SCRIBE, under my direction and personally reviewed by me in its entirety. I confirm that the documentation accurately reflects all work, treatment, procedures, and medical decision making performed by me. Attending Attestation - Resident Resident Name: Garland Bellamy - ED Attending Attestation I have performed the following: I have examined & evaluated the patient, The case was reviewed & discussed with the resident, I agree w/resident's findings & plan, Exceptions are as noted - HPI HPI: 09/09/19 20:58 The patient is a 64 year old male with past medical history significant for HTN, HLD, CHF, Afib, s/p pacer, CAD s/p 7 stents, Intracranial Hemorrhage, COPD, Morbid Obesity who presents to the emergency department with left flank pain, fever, nausea and vomiting. Allergies: vancomycin - Physicial Exam PE: 09/10/19 03:31 Agree with documented exam No signs of cellulitis on survey No erythema, tenderness or crepitus of groin - Medical Decision Making 09/10/19 03:32 Pt unable to specify why EMS was called. States he was dropped during transfer Significant VS derangement from triage, febrile to 105F, tachy irregularly irrgular. Arrythmia/tachycardia likely primarily attributable to fever to 105F septic w/u, broad eval for source, cxr, ekg ua CT b, nc ivf, antipyretic, active cooling admit No acute path on CT head +uti, start ctx HR in 110s after down trending temp Discharge - Discharge Information Problems reviewed: Yes Clinical Impression/Diagnosis: Sepsis Qualifiers: Sepsis type: sepsis due to unspecified organism Qualified Code(s): A41.9 - Sepsis, unspecified organism - Follow up/Referral - Patient Discharge Instructions - Post Discharge Activity
[2019-09-09] MEDS ORDERED: oxyCODONE HCL 5 MG TABLET ONE (21:49)
[2019-09-09] MEDS ORDERED: ACETAMINOPHEN INJECTION 100 ML IVPB ONE (21:49)
[2019-09-09] MEDS ORDERED: PIPERACILLIN/TAZOB 3.375 GM 3.375 GM in DEXTROSE 5%-WATER - 50 ML IVPB ONE (21:58)
[2019-09-09 21:59] LABS: BASO % 0.4 % (0-2.0); EOS % 0.4 % (0-4.5); HEMATOCRIT 38.4 % (35.4-49); HEMOGLOBIN 12.9 GM/dL (11.7-16.9); LYMPH % 5.9 % (8-40); MCH 30.2 pg (25.7-33.7); MCHC 33.7 g/dl (32.0-35.9); MEAN CELL VOLUME 89.6 fl (80-96); MEAN PLT VOLUME 6.9 fl (7.5-11.1); MONO % 3.1 % (3.8-10.2); NEUT % 90.2 % (42.8-82.8); PLATELET COUNT 155 K/MM3 (134-434); RBC 4.28 M/mm3 (4.00-5.60); RDW 15.2 % (11.9-15.9); WHITE BLOOD COUNT 7.3 K/mm3 (4.0-10.0)
[2019-09-09] MEDS ORDERED: SODIUM CHLORIDE 0.9% 500 ML INFUS.BAG IV ONE (21:59)
[2019-09-09 22:03] LABS: EPI CELLS 3 /uL (0-25.1); HYALINE CASTS 1 /uL (0-3.1); URINE APPEARANCE CLOUDY; URINE BILIRUBIN NEGATIVE (NEGATIVE); URINE COLOR YELLOW; URINE GLUCOSE (UA) NEGATIVE (NEGATIVE); URINE KETONE NEGATIVE (NEGATIVE); URINE LEUK ESTERASE 2+ (NEGATIVE); URINE NITRITE NEGATIVE (NEGATIVE); URINE PROTEIN NEGATIVE (NEGATIVE); URINE RBC 30 /uL (0-23.9); URINE WBC 360 /uL (0-25.8)
[2019-09-09] MEDS ORDERED: CEFTRIAXONE 1,000 MG in DEXTROSE 5%-WATER - 50 ML IVPB ONE ×2 (22:04→22:37)
[2019-09-09 22:14] LABS: INR 2.34 (0.83-1.09); PROTHROMBIN TIME (PATIENT) 27.8 SEC (9.7-13.0)
[2019-09-09 22:16] LABS: ACTIVATED PTT 35.2 SECONDS (25.2-36.5)
[2019-09-09 22:21] LABS: ALBUMIN 3.4 g/dl (3.4-5.0); BILIRUBIN,TOTAL 0.9 mg/dL (0.2-1); BLOOD UREA NITROGEN 16.8 mg/dL (7-18); CALCIUM 8.9 mg/dL (8.5-10.1); CREATININE 1.4 mg/dL (0.55-1.3); POTASSIUM 4.6 mmol/L (3.5-5.1); TOT PROT 7.5 g/dl (6.4-8.2)
[2019-09-09] MEDS ORDERED: CEFTRIAXONE 1 GM/50 ML BAG ONE (23:15)
[2019-09-09] MEDS ORDERED: SODIUM CHLORIDE 1,000 ML IV STA (23:18)
--- NOTE | 2019-09-10 00:21 | PN ---
Teaching Attending Note Name of Resident: Seema Campbell ATTENDING PHYSICIAN STATEMENT I saw and evaluated the patient. I reviewed the resident's note and discussed the case with the resident. I agree with the resident's findings and plan as documented. SUBJECTIVE: Patient is a 64 year old man with a PMH of Vancomycin allergy, HTN, HLD, BPH, NIDDM, HFpEF (LVEF 50-55%), Atrial Fibrillation, Pacemaker placement, CAD (s/p 7 stents), Intracranial Hemorrhage, COPD and Morbid Obesity who presents with back, arm, and shoulder pain in the context of recent fall. Patient reports that he fell while being moved by EMS. Upon falling he injured his back, right arm, and left shoulder. He also reports that prior to falling he had nausea and vomit ed once. He additionally had some SOB while being transferred from his bed to the ambulance. He denies fever, chills, diarrhea, chest pain, abdominal pain, dysuria, hematuria or diarrhea. Denies alcohol, tobacco or illicit drug use. No sick contacts or recent travels. Family history is unremarkable. OBJECTIVE: Alert Vital Signs Period Temp Pulse Resp BP Sys/Mixon Pulse Ox Last 24 Hr 102.0 F-105.2 F 114-156 16-22 100-124/56-81 96-98 HEENT: No Jaundice, eye redness or discharge, PERRLA, EOMI. Normocephalic, atraumatic. External ears are normal and hearing is grossly intact. No nasal discharge. Neck: Supple, nontender. No palpable adenopathy or thyromegaly. No JVD Chest: Good effort. Clear to auscultation and percussion. Heart: Regular. 3/6 SEA; no rub. Abdomen: Not distended, soft, LUQ and LLQ tenderness and no HSM. No rebound or guarding. Normal bowel sounds. Ext: Peripheral pulses intact. Right elbow abrasion. Leg edema. Skin: Warm and dry. No petechiae, rash or ecchymosis. Neuro: Alert. Oriented x3. CN 2-12 grossly intact. Sensation grossly intact in all four extremities and DTR are symmetric. Psych: Appropriate mood and affect. Good insight. Home Medications Medication Instructions Recorded Clopidogrel Bisulfate [Clopidogrel] 75 mg PO DAILY 07/20/17 Digoxin [Lanoxin -] 0.125 mg PO DAILY 07/20/17 Metoprolol Succinate [Toprol XL -] 50 mg PO DAILY 07/20/17 Oxycodone HCl 30 mg PO TID PRN 07/20/17 Insulin Detemir [Levemir Flextouch] 10 unit SQ ACBK #1 insuln.pen MDD 1 07/29/17 Melatonin 5 mg PO HS PRN tab 07/29/17 Rivaroxaban [Xarelto -] 20 mg PO DAILY@1800 tablet 07/29/17 Tamsulosin HCl [Flomax -] 0.4 mg PO DAILY@0830 #30 07/29/17 cap.er.24h MDD 1 Finasteride [Proscar -] 5 mg PO DAILY 09/05/17 Lisinopril [Zestril] 2.5 mg PO DAILY 09/05/17 Simvastatin 20 mg PO DAILY 09/05/17 levETIRAcetam [Keppra Xr -] 750 mg PO DAILY MDD 1 09/05/17 Gabapentin [Neurontin] 600 mg PO HS 03/25/18 Gabapentin 600 mg PO TID #90 tablet 03/26/18 Phenazopyridine HCl [Pyridium -] 100 mg PO TID #90 tablet 03/26/18 Oxycodone HCl [Roxicodone] 30 mg PO QID PRN #40 tablet MDD 8 03/27/18 Clopidogrel Bisulfate [Plavix -] 75 mg PO DAILY tablet 04/19/19 Digoxin [Lanoxin -] 0.25 mg PO DAILY tablet 04/19/19 Docusate Sodium [Colace -] 300 mg PO HS capsule 04/19/19 Gabapentin [Neurontin -] 900 mg PO TID capsule 04/19/19 Insulin Sliding Scale [Novolog 1 vial SQ ACHS units 04/19/19 Vial Sliding Scale -] Lidocaine 5% Top. Ointment 1 applic TP BID tube 04/19/19 [Xylocaine 5% Top. Ointment -] Lidocaine Patch Removal [Lidoderm 1 each MC DAILY@2200 each 04/19/19 Patch Removal] Mag Hydrox/Al Hydrox/Simeth 30 ml PO Q6H PRN cup 04/19/19 [Mylanta Oral Suspension -] Melatonin 10 mg PO HS tab 04/19/19 Methylnaltrexone [place] [Relistor 12 mg SQ DAILY kit 04/19/19 -] Metoprolol Succinate [Toprol XL -] 50 mg PO DAILY tab.sr.24h 04/19/19 Polyethylene Glycol 3350 [Miralax 17 gm PO BID bottle 04/19/19 119 gm Btl -] Rivaroxaban [Xarelto -] 20 mg PO DAILY@1800 tablet 04/19/19 Tamsulosin HCl [Flomax -] 0.4 mg PO DAILY@0830 cap.er.24h 04/19/19 levETIRAcetam [Levetiracetam -] 750 mg PO DAILY tab.er.24h 04/19/19 oxyCODONE HCL [Roxicodone -] 30 mg PO Q6H PRN tablet MDD 4 04/19/19 Abnormal Lab Results 09/09/19 09/09/19 09/09/19 21:30 21:30 21:30 MPV 6.9 L Neutrophils % 90.2 H Lymphocytes % 5.9 L D Monocytes % 3.1 L PT with INR 27.80 H INR 2.34 H Creatinine Random Glucose Lactic Acid AST Ur Leukocyte Esterase 2+ H 09/09/19 09/09/19 21:30 21:30 MPV Neutrophils % Lymphocytes % Monocytes % PT with INR INR Creatinine 1.4 H Random Glucose 197 H Lactic Acid 3.6 H* AST 55 H Ur Leukocyte Esterase ASSESSMENT AND PLAN: 1. Sepsis due to UTI/Fall - Sepsis work up done. Previously had enterococcus in the urine. Will treat with IV Ceftriaxone and Linezolid, and IV NS according to sepsis protocol. Consult ID. Trend lactic acid. Will get xrays of right arm, right elbow, lower back, and right shoulder to rule out fracture. Will get CT abdomen/pelvis in view of abdominal tenderness. CXR shows left side pacemaker but no evidence of acute lung pathology. No acute abnormality on head CT. Viral testing for COVID-19 ordered and patient placed on airborne, droplet and contact isolation. EKG shows Afib at 155/minute and QTc [address]-T wave changes. Heart rate improved to less than 110/minute in the ER. WIll avoid drugs that may prolong QTc. Will continue comprehensive care for all of patients comorbid conditions including Xarelto for Afib and Flomax for BPH. 2. Polypharmacy - Will liaise with patient's PCP to discontinue medications that are not absolutely essential. 3. Morbid obesity Counseled on the risks associated with morbid obesity. Will provide patient all the necessary assistance, counseling and positive reinforcement to facilitate weight loss. Consult hide splitter. 4. DM For now, we will hold the home diabetes drugs and implement sliding scale insulin regimen. Provide comprehensive diabetes care with patient teaching and counseling about the importance of adherence to prescribed diabetes regimen, euglycemia, eye care and foot care. 5. DVT prophylaxis - On Xarelto for Afib. 6. Advance directives - Full code
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
[2019-09-10] MEDS ORDERED: LINEZOLID 600 MG PREMIX BAG 600 MG/300 ML BAG IVPB STA (02:33)
[2019-09-10] MEDS ORDERED: oxyCODONE HCL 5 MG TABLET PO ONE (03:45)
[2019-09-10] MEDS ORDERED: oxyCODONE HCL 5 MG TABLET ONE (03:51)
[2019-09-10] MEDS ORDERED: SODIUM CHLORIDE 1,000 ML IV SCH (05:00)
[2019-09-10] MEDS ORDERED: METOPROLOL TARTRATE 5 MG/5 ML VIAL IVPUSH ONE (07:02)
[2019-09-10] MEDS ORDERED: MAG HYDROX/AL HYDROX/SIMETH 30 ML UNIT-DOSE CUP PO PRN (07:06)
[2019-09-10 08:34] LABS: BASO % 0.4 % (0-2.0); HEMATOCRIT 37.8 % (35.4-49); HEMOGLOBIN 12.6 GM/dL (11.7-16.9); LYMPH % 5.5 % (8-40); MCH 29.7 pg (25.7-33.7); MCHC 33.3 g/dl (32.0-35.9); MEAN CELL VOLUME 89.4 fl (80-96); MONO % 5.3 % (3.8-10.2); NEUT % 88.8 % (42.8-82.8); PLATELET COUNT 124 K/MM3 (134-434); RBC 4.23 M/mm3 (4.00-5.60); RDW 15.3 % (11.9-15.9); WHITE BLOOD COUNT 10.2 K/mm3 (4.0-10.0)
[2019-09-10 08:39] LABS: INR 2.43 (0.83-1.09); PROTHROMBIN TIME (PATIENT) 28.9 SEC (9.7-13.0)
[2019-09-10] MEDS ORDERED: ACETAMINOPHEN INJECTION 100 ML IVPB ONE (08:40)
[2019-09-10 08:42] LABS: ACTIVATED PTT 38.3 SECONDS (25.2-36.5)
[2019-09-10 09:02] LABS: ALBUMIN 3.1 g/dl (3.4-5.0); BLOOD UREA NITROGEN 17.9 mg/dL (7-18); CALCIUM 8.4 mg/dL (8.5-10.1); CREATININE 1.8 mg/dL (0.55-1.3); MAGNESIUM 1.4 mg/dL (1.8-2.4); PHOSPHOROUS 1.6 mg/dL (2.5-4.9); POTASSIUM 3.9 mmol/L (3.5-5.1); TOT PROT 6.9 g/dl (6.4-8.2)
[2019-09-10] MEDS ORDERED: METOPROLOL TARTRATE 5 MG/5 ML VIAL ONE (09:38)
[2019-09-10] MEDS ORDERED: ONDANSETRON 4 MG/2 ML VIAL IVPUSH PRN (09:44)
[2019-09-10] MEDS ORDERED: ACETAMINOPHEN 1000 MG/100 ML VIAL (NON FORMULARY) IVPB ONE (09:44)
[2019-09-10] MEDS ORDERED: PROMETHAZINE HCL 25 MG/1 ML VIAL IVPB PRN (09:44)
[2019-09-10] MEDS ORDERED: LACTATED RINGERS SOLUTION 1,000 ML IV SCH (09:45)
[2019-09-10] MEDS ORDERED: SUCCINYLCHOLINE CHLORIDE 200 MG/10 ML SYRINGE ONE (09:50)
[2019-09-10] MEDS ORDERED: ROCURONIUM BROMIDE 50 MG/5 ML SYRINGE ONE (09:50)
[2019-09-10] MEDS ORDERED: PROPOFOL 20 ML ONE (09:50)
[2019-09-10] MEDS ORDERED: ETOMIDATE 20 MG/10 ML AMPUL IVPUSH ONE (09:57)
[2019-09-10] MEDS ORDERED: LIDOCAINE HCL/PF 2% SDV 5ML VIAL ONE (09:57)
[2019-09-10] MEDS ORDERED: CEFTRIAXONE 2 GM-D5W BAG 2 GM/50 ML BAG IVPB SCH (10:00)
[2019-09-10] MEDS ORDERED: PATIENT'S OWN MEDICATION (NON-FORMULARY) (Simvastatin [Simvastatin] 20 MG) PO SCH (10:00)
[2019-09-10] MEDS: INSULIN SLIDING SCALE (NOVOLOG) 1 VIAL SQ SCH ×4 (10:18→21:12)
[2019-09-10] MEDS ORDERED: KETOROLAC TROMETHAMINE 30 MG/1 ML VIAL ONE (10:28)
[2019-09-10] MEDS ORDERED: GENTAMICIN 80MG PREMIX BAG IVPB ONE (10:28)
[2019-09-10] MEDS ORDERED: GENTAMICIN SO4 80 MG/2 ML VIAL ONE (10:30)
--- NOTE | 2019-09-10 10:39 | EKG ---
Test Reason : Blood Pressure : / mmHG Vent. Rate : 127 BPM Atrial Rate : 144 BPM P-R Int : 000 ms QRS Dur : 090 ms QT Int : 314 ms P-R-T Axes : 000 038 065 degrees QTc Int : 456 ms POOR DATA QUALITY, INTERPRETATION MAY BE ADVERSELY AFFECTED ATRIAL FIBRILLATION WITH RAPID VENTRICULAR RESPONSE NONSPECIFIC ST ABNORMALITY ABNORMAL ECG Confirmed by MELISSA MURRAY MD ([id number]) on 09/10/2019 10:38:55 AM Referred By: Confirmed By:MELISSA MURRAY MD
--- NOTE | 2019-09-10 10:44 | EKG ---
Test Reason : Blood Pressure : / mmHG Vent. Rate : 155 BPM Atrial Rate : 192 BPM P-R Int : 000 ms QRS Dur : 090 ms QT Int : 312 ms P-R-T Axes : 000 000 165 degrees QTc Int : 501 ms POOR DATA QUALITY, INTERPRETATION MAY BE ADVERSELY AFFECTED ATRIAL FIBRILLATION WITH RAPID VENTRICULAR RESPONSE WITH PREMATURE VENTRICULAR OR ABERRANTLY CONDUCTED COMPLEXES INDETERMINATE AXIS NONSPECIFIC ST ABNORMALITY ABNORMAL ECG Confirmed by MELISSA MURRAY MD ([id number]) on 09/10/2019 10:43:32 AM Referred By: Confirmed By:MELISSA MURRAY MD
[2019-09-10] MEDS ORDERED: ONDANSETRON 4 MG/2 ML VIAL ONE (11:21)
--- NOTE | 2019-09-10 11:22 | CON.GU ---
Consult Consult Specialty:: urology Reason for Consultation:: left ureteral obstruction - History of Present Illness Chief Complaint: urosepsis with left ureteral obstruction History of Present Illness: Patient is a 64 year old male with history of left renal stone. Patient presents with gram negative sepsis with positive blood cultures with bp of 90/70 in afib. The patient had fever up to 105. The patient is on elliquis and is not a candidate for a percutaneous nephrostomy. 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 on [facility] ) Cardio/Vascular: Yes: AFIB, CAD (prior PCI, last 12/2016 at [place], [facility]), CHF (chronic primarily diastolic), HTN, Other Pulmonary: Yes: COPD Gastrointestinal: Yes: Other (6 years earlier -negative EGD and colonoscopy) Hepatobiliary: Yes: Cirrhosis, Hepatitis C, Other (patient does not admit to cirrhosis (normal liver on ct scan does have splenomegaly)) Renal/: Yes: BPH, Renal Calculi Psych: Yes: Anxiety, Depression Musculoskeletal: Yes: Chronic low back pain, Osteoarthritis Endocrine: Yes: Diabetes Mellitus - Past Surgical History Past Surgical History: Yes: Colonoscopy, Upper Endoscopy - Alcohol/Substance Use Hx Alcohol Use: No History of Substance Use: reports: None - Smoking History Smoking history: Former smoker Have you smoked in the past 12 months: No Aproximately how many cigarettes per day: 0 If you are a former smoker, when did you quit?: 25 years - Social History Usual Living Arrangement: With Child ADL: Family Assistance Occupation: worked in [place] [employer] with exposures History of Recent Travel: No Home Medications - Allergies Allergies/Adverse Reactions: Allergies Allergy/AdvReac Type Severity Reaction Status Date / Time vancomycin AdvReac Mild Itching Verified 09/09/19 20:34 - Home Medications Home Medications: Ambulatory Orders Digoxin [Lanoxin -] 0.125 mg PO DAILY 07/20/17 Insulin Detemir [Levemir Flextouch] 10 unit SQ ACBK #1 insuln.pen MDD 1 07/29/17 Melatonin 5 mg PO HS PRN tab 07/29/17 Finasteride [Proscar -] 5 mg PO DAILY 09/05/17 Lisinopril [Zestril] 2.5 mg PO DAILY 09/05/17 Simvastatin 20 mg PO DAILY 09/05/17 Phenazopyridine HCl [Pyridium -] 100 mg PO TID #90 tablet 03/26/18 Clopidogrel Bisulfate [Plavix -] 75 mg PO DAILY tablet 04/19/19 Digoxin [Lanoxin -] 0.25 mg PO DAILY tablet 04/19/19 Docusate Sodium [Colace -] 300 mg PO HS capsule 04/19/19 Gabapentin [Neurontin -] 900 mg PO TID capsule 04/19/19 Insulin Sliding Scale [Novolog Vial Sliding Scale -] 1 vial SQ ACHS units 04/19/19 Lidocaine 5% Top. Ointment [Xylocaine 5% Top. Ointment -] 1 applic TP BID tube 04/19/19 Lidocaine Patch Removal [Lidoderm Patch Removal] 1 each MC DAILY@2200 each 04/19/19 Mag Hydrox/Al Hydrox/[place] [Mylanta Oral Suspension -] 30 ml PO Q6H PRN cup 04/19/19 Melatonin 10 mg PO HS tab 04/19/19 Methylnaltrexone [place] [Relistor -] 12 mg SQ DAILY kit 04/19/19 Metoprolol Succinate [Toprol XL -] 50 mg PO DAILY tab.sr.24h 04/19/19 Polyethylene Glycol 3350 [Miralax 119 gm Btl -] 17 gm PO BID bottle 04/19/19 Rivaroxaban [Xarelto -] 20 mg PO DAILY@1800 tablet 04/19/19 Tamsulosin HCl [Flomax -] 0.4 mg PO DAILY@0830 cap.er.24h 04/19/19 levETIRAcetam [Levetiracetam -] 750 mg PO DAILY tab.er.24h 04/19/19 oxyCODONE HCL [Roxicodone -] 30 mg PO Q6H PRN tablet MDD 4 04/19/19 Physical Exam- Vital Signs: Vital Signs Temperature 102.2 F H 09/10/19 09:00 Pulse Rate 138 H 09/10/19 09:00 Respiratory Rate 20 09/10/19 09:00 Blood Pressure 96/65 09/10/19 09:30 O2 Sat by Pulse Oximetry (%) 99 09/10/19 09:00 Constitutional: Yes: [place], Diaphoresis, Severe Distress Eyes: Yes: Conjunctiva Clear HENT: Yes: Atraumatic, Normocephalic Neck: Yes: Supple, Trachea Midline Cardiovascular: Yes: Pulse Irregular Gastrointestinal: Yes: Soft, Hypoactive Bowel Sounds Renal/: Yes: CVA Tenderness - Left Kidneys: Yes: Flank Pain Left Pelvis: Yes: Bladder Non Palpable Testicles: Yes: WNL Scrotum: Yes: WNL Prostate Exam: Yes: WNL Labs: CBC, BMP 09/10/19 08:11 09/10/19 08:11 Assessment/Plan imp gram negative urosepsis with positive blood cultures/a fib/hypotension left obstructing ureteral stone acute renal injury plan patient is emergently taken to the OR for a ureteral stent placement discussed with staff and patient x 25 minutes.
--- NOTE | 2019-09-10 11:29 | OP ---
Operative Note - Note: Operative Date: 09/10/19 Pre-Operative Diagnosis: left ureteral stone with high grade obstruction; gram negative sepsis; acute renal injury Operation: cystoscopy/left retrograde pyelogram/left ureteroscopic stone manipulation and stent placement. Findings: high grade hydronephrosis with obstructing 1+ ureteral stone Post-Operative Diagnosis: Same as Pre-op Surgeon: Tyrell Little Anesthesia: General Drains & Tubes with Location: 09/02 left ureteral stent Operative Report Dictated: Yes
[2019-09-10] MEDS ORDERED: LACTATED RINGERS SOLUTION 1000 ML INFUS.BAG IV ONE ×4 (12:11→16:40)
--- NOTE | 2019-09-10 12:14 | CONSULT ---
Consultation: ICU Consult Requesting Provider: Dr. Little Consult Request: We have been asked to medically evaluate this patient for post- op hypotension. History of Present Illness: 64 y/o male presenting to the ED with fever and tachycardia. Found to have obstructing nephrolithiasis with resulting hydronephrosis complicated by likely acute cystitis vs pyelonephritis. Pt found to be hypotensive in PACU despite receiving 400cc NS during operative procedure. PCP: [facility] Hx: HTN, HLD, CHF, Atrial Fibrillation, s/p pacer, CAD s/p 7 stents, Intracranial Hemorrhage, COPD, and Morbid Obesity Review of Systems: In addition to that documented in the HPI above, the additional ROS was obtained: Constitutional: Endorses fevers and chills Head: Denies vision changes ENMT: Denies sore throat CV: Denies chest pain Resp: Denies SOB GI: Denies vomiting or diarrhea : Denies painful urination MSK: Denies recent trauma Skin: Denies new rashes Neuro: Denies new numbness or tingling or weakness Endocrine: Denies polyuria Heme: Denies bleeding or bruising OBJECTIVE: Lines: - Right TLC (placed 09/09) Drains: - Vasques Supplemental Oxygen: Room Air Physical Exam: Constitutional: Obese adult male in no acute distress or obvious discomfort. Found semi-fowlers. Alert and oriented x4. Answered all questions appropriately and completely. Head: Normocephalic. No obvious external signs of trauma. Eyes: Sclerae white. Neck: Supple, trachea is midline. No JVD. Cardiovascular / Chest: Tachycardia with regular rhythm. Peripheral pulses: radial pulses full. Respiratory: Breathing unlabored. Equal chest rise and fall. Clear to auscultation bilaterally. No stridor, no wheezing, no rhonchi. Gastrointestinal: abdomen is soft, non-tender, non-distended. Neuro: Alert and oriented. Moving all four extremities spontaneously. Skin: Pale, diaphoretic. : Vasques catheter in place. Psych: Affect: appropriate. Mood: normal. ASSESSMENT / PLAN: 64 year old male with hypotension concerning for septic shock secondary to nephrolithiasis complicated by UTI versus gram negative bacilli bacteremia. Neuro (& Psych): - A/o. No sedating medication. Cardiovascular: - Tachycardic and hypotensive. Received 3500 cc LR bolus without improvement in MAP or significant urine output. Levophed initiated at lowest rate. Maintenance fluids started at 2500cc/hr - H/o CHF. No signs of volume overload. Will continue to monitor. Pulm / Resp: - No distress on room air. Genitourinary: - Vasques in place to trend I/O - Obtained renal U/S to evaluate for further obstruction vs hydro given limited output - no acute pathology noted. Infectious Disease: - Septic shock. Lactic acid downtrended with fluid resuscitation. - Gram negative bacilli in multiple blood culture bottles. Ordered Zosyn. - Urine culture pending. Reviewed previous culture data. Noted h/o E. Faecalis sensitive to Vancomyicn. - ID consult placed. Will f/u recommendations Musculoskeletal - Shoulder and elbow pain. Plain films ordered by ED. Obtained as portable studies on the unit. No acute fracture or dislocation. Suspect pain is secondary to arthritic changes. FEN: - IVF: LR @ 250cc/hr while monitoring respiratory status, urine output, and MAP Prophylaxis: - DVT: Holding with possible further urologic procedure. Code Status: - Full Code Dispo: Pt to remain on the ICU service with concern for possible rapid deterioration without close monitoring. Case discussed with ICU attending, Dr. Dillon Martinez M.D., PGY3 ICU Service 10 September 2019 Visit type - Emergency Visit Emergency Visit: Yes ED Registration Date: 09/09/19 Care time: The patient presented to the Emergency Department on the above date and was hospitalized for further evaluation of their emergent condition. - New Patient This patient is new to me today: Yes Date on this admission: 09/11/19 - Critical Care Critical Care patient: Yes Total Critical Care Time (in minutes): 90 Critical Care Statement: The care of this patient involved high complexity decision making to prevent further life threatening deterioration of the patient's condition and/or to evaluate & treat vital organ system(s) failure or risk of failure.
--- NOTE | 2019-09-10 12:21 | OP ---
DATE OF OPERATION: 09/10/2019 PREOPERATIVE DIAGNOSIS: Left ureteral stone with high-grade obstruction, gram-negative sepsis with positive blood cultures, acute renal injury. PROCEDURE: Cystoscopy, left retrograde pyelogram, left ureteroscopic stone manipulation, and stent placement. ATTENDING SURGEON: Yovanny Leon MD ANESTHESIA: General. DESCRIPTION OF PROCEDURE: Patient was brought in the operating room, placed in a supine position on the operating room table. At this point anesthesia was administered. The patient was given Rocephin in the emergency room. A dose of gentamicin was added in the operating room. At this point, the patient was placed in the dorsal lithotomy position and prepped and draped in the usual sterile manner. Cystoscopy was performed. The patient is morbidly obese, and entry into the bladder was complicated; however, was done without injury to the patient. At this point, the bladder could not be fully examined, the left ureteral orifice was identified. A retrograde pyelogram showed a high-grade hydroureteronephrosis with a 1-plus centimeter proximal ureteral stone causing obstruction. At this point, a wire was placed. Ureteroscopy was then perform, and the stone was pushed into the kidney. With this accomplished, the ureteroscope was removed. Utilizing the Seldinger technique under cystoscopic visualization, a 6-Kazakh 26-cm stent was placed without complications. The patient tolerated the procedure very well. YOVANNY LEON M.D. [id number]
[2019-09-10] MEDS ORDERED: PHENYLEPHRINE HCL 10 MG/1 ML SINGLE DOSE VIAL IVPB ONE (12:46)
--- NOTE | 2019-09-10 13:18 | PN ---
Teaching Attending Note Name of Resident: Efe Martinez ATTENDING PHYSICIAN STATEMENT I saw and evaluated the patient. I reviewed the resident's note and discussed the case with the resident. I agree with the resident's findings and plan as documented. SUBJECTIVE: 64 M, HTN, HLD, CHF (EF 50-55%), A-fib s/p PPM and on xarelto,CAD s/p 7 stents, TBI, s/p left frontoparietal craniotomy, COPD, and morbid obesity. Admitted via the ER due to fever and NBNB emesis. Found to have a UTI., left hydronephrosis, and renal stone requiring a cystoscop y with stone removal. Called emergently to the PACU for hypotension (MAP = 50). At this point he has only received 1 liter in total of volume resuscitation. Noted to be in AFib (rate 100's). He denies CP or SOB. TLC is being emergently inserted for access for possible need for pressors. Intake & Output 09/07/19 09/08/19 09/09/19 09/10/19 23:59 23:59 23:59 23:59 Intake Total 1600 Output Total 70 Balance 1530 Weight 343 lb Last Vital Signs Temp Pulse Resp BP Pulse Ox 99.0 F 105 H 20 85/46 L 100 09/10/19 12:05 09/10/19 12:05 09/10/19 12:05 09/10/19 12:05 09/10/19 12:05 Active Medications Al Hydroxide/Mg Hydroxide (Mylanta Oral Suspension -) 30 ml PO Q6H PRN PRN Reason: DYSPEPSIA Atorvastatin Calcium (Lipitor -) 10 mg PO HS [facility] Clopidogrel Bisulfate (Plavix -) 75 mg PO DAILY [facility] Fentanyl (Sublimaze Injection -) 50 mcg IVPUSH [id number] PRN PRN Reason: PAIN-PACU ORDER X 4 DOSES ONLY Finasteride (Proscar -) 5 mg PO DAILY [facility] Gabapentin (Neurontin -) 900 mg PO TID [facility] Ceftriaxone Sodium 2 gm/ (Dextrose) 50 mls @ 100 mls/hr IVPB DAILY [facility]; Pr otocol Sodium Chloride (Normal Saline -) 1,000 mls @ 83 mls/hr IV ASDIR [facility] Last Admin: 09/10/19 07:12 Dose: 83 mls/hr Documented by: Lactated Ringer's (Lactated Ringers Solution) 1,000 mls @ 125 mls/hr IV ASDIR [facility] Insulin Aspart (Novolog Vial Sliding Scale -) 1 vial SQ [facility]; Protocol Last Admin: 09/10/19 13:02 Dose: Not Given Documented by: Lidocaine HCl (Xylocaine 5% Top. Ointment) 1 applic TP BID [facility] Melatonin (Melatonin) 10 mg PO HS [facility] Methylnaltrexone [place] (Relistor -) 12 mg SQ DAILY [facility] Metoprolol Succinate (Toprol Xl -) 50 mg PO DAILY [facility] Ondansetron HCl (Zofran Injection) 4 mg IVPUSH Q6H PRN PRN Reason: NAUSEA AND/OR VOMITING Oxycodone HCl (Roxicodone -) 30 mg PO Q6H PRN PRN Reason: PAIN LEVEL 7 - 10 Phenazopyridine HCl (Pyridium -) 100 mg PO TID [facility] Polyethylene Glycol (Miralax (For Daily Use) -) 17 gm PO BID [facility] Promethazine HCl (Phenergan Injection -) 12.5 mg IVPB Q6H PRN PRN Reason: NAUSEA-FOR RESCUE AFTER 15 MIN Tamsulosin HCl (Flomax -) 0.4 mg PO DAILY@0830 [facility] GENERAL: Lying in bed. Awake, alert, and oriented, no acute distress. HEENT: NCAT. No JVD. No carotid bruits. dry mucous membranes LUNGS: diminished, clear. No accessory muscle use. HEART: Irregularly irregular, normal S1 and S2 without murmur, rub or gallop. ABDOMEN: Obese. Tender to palpation LUQ & LLQ. Soft, + bowel sounds, no guarding. Healed midline vertical surgical incision. MUSCULOSKELETAL: Normal range of motion at all joints. No bony deformities or tenderness. No CVA tenderness. EXTREMITIES: 2+ pulses, warm, well-perfused. No calf tenderness. 1+ pitting edema b/l LE. NEUROLOGICAL: Non-focal PSYCHIATRIC: Appropriate mood and affect. SKIN: no rashes or lesions noted Laboratory Results - last 24 hr 09/09/19 09/09/19 09/09/19 21:30 21:30 21:30 WBC 7.3 RBC 4.28 Hgb 12.9 Hct 38.4 MCV 89.6 MCH 30.2 MCHC 33.7 RDW 15.2 D Plt Count 155 MPV 6.9 L Absolute Neuts (auto) 6.6 Neutrophils % 90.2 H Lymphocytes % 5.9 L D Monocytes % 3.1 L Eosinophils % 0.4 D Basophils % 0.4 Nucleated RBC % 0 PT with INR 27.80 H INR 2.34 H PTT (Actin FS) 35.2 Sodium Potassium Chloride Carbon Dioxide Anion Gap BUN Creatinine Est GFR (CKD-EPI)AfAm Est GFR (CKD-EPI)NonAf Random Glucose Lactic Acid Calcium Total Bilirubin AST ALT Alkaline Phosphatase Creatine Kinase Troponin I Total Protein Albumin Urine Color Yellow Urine Appearance Cloudy Urine pH 6.0 Ur Specific [place] 1.016 Urine Protein Negative Urine Glucose (UA) Negative Urine Ketones Negative Urine Blood Trace Urine Nitrite Negative Urine Bilirubin Negative Urine Urobilinogen 1.0 Ur Leukocyte Esterase 2+ H Urine WBC (Auto) 360 Urine RBC (Auto) 30 Urine Casts (Auto) 1 U Epithel Cells (Auto) 3 Urine Bacteria (Auto) >10,000 09/09/19 09/09/19 09/09/19 21:30 21:30 21:30 WBC RBC Hgb Hct MCV MCH MCHC RDW Plt Count MPV Absolute Neuts (auto) Neutrophils % Lymphocytes % Monocytes % Eosinophils % Basophils % Nucleated RBC % PT with INR INR PTT (Actin FS) Sodium 136 Potassium 4.6 Chloride 102 Carbon Dioxide 22 Anion Gap 12 BUN 16.8 Creatinine 1.4 H Est GFR (CKD-EPI)AfAm 61.10 Est GFR (CKD-EPI)NonAf 52.72 Random Glucose 197 H Lactic Acid 3.6 H* Calcium 8.9 Total Bilirubin 0.9 AST 55 H ALT 33 Alkaline Phosphatase 75 Creatine Kinase 122 Troponin I < 0.02 Total Protein 7.5 Albumin 3.4 Urine Color Urine Appearance Urine pH Ur Specific [place] Urine Protein Urine Glucose (UA) Urine Ketones Urine Blood Urine Nitrite Urine Bilirubin Urine Urobilinogen Ur Leukocyte Esterase Urine WBC (Auto) Urine RBC (Auto) Urine Casts (Auto) U Epithel Cells (Auto) Urine Bacteria (Auto) ASSESSMENT/PLAN: Sepsis due to source Concern for progression to Septic Shock S/P cystoscopy with stone retrieval HTN HLD CHF (EF 50-55%) A-fib on Xarelto s/p PPM CAD s/p 7 stents Prior TBI DM s/p left frontoparietal craniotomy COPD Morbid obesity TLC be inserted Aggressive IVF resuscitation Strict I & O ABX : ID evaluation Supplemental O2 as needed Follow CVP to help guide IVF resuscitation Rate control Monitor off systemic steroids Glycemic control Requires ICU monitoring Dr Carranza Critical care time spent in reviewing chart, evaluating patient and formulating plan - 36 minutes.
--- NOTE | 2019-09-10 13:56 | CONSULT ---
Consult Consult Specialty:: Nephrology Reason for Consultation:: JANETT - History of Present Illness Chief Complaint: presented with fevers History of Present Illness: Pt is a 64 year old male with pmhx of htn, hld, chf, a-fib, cad, PPM, intracraneal hemorrhage, copd, obesity who presented to the ER with fevers. He was has having nausea and vomiting for three days. He was found to have a left stone and hydro. He was taken for cysto. I was called to evaluate him for JANETT. He is hypotensive and tachycardic. He denies history of CKD. He went for cysto and I evaluate him in the recovery room. He remains hypotensive in the PACU. I was called to evaluate him. He is also being evaluate for ICU admission. He denies shortness of breath. He denies chest pain or palpitations. - History Source History Provided By: Patient, Medical Record - Past Medical History CLAIMS MANAGER: Yes: Other (craniotomy s/p evacuation [facility] on [facility] ) Cardio/Vascular: Yes: AFIB, CAD (prior PCI, last 12/2016 at [place], [facility]), CHF (chronic primarily diastolic), HTN, Other Pulmonary: Yes: COPD Gastrointestinal: Yes: Other (6 years earlier -negative EGD and colonoscopy) Hepatobiliary: Yes: Cirrhosis, Hepatitis C, Other (patient does not admit to cirrhosis (normal liver on ct scan does have splenomegaly)) Renal/: Yes: BPH, Renal Calculi Psych: Yes: Anxiety, Depression Musculoskeletal: Yes: Chronic low back pain, Osteoarthritis Endocrine: Yes: Diabetes Mellitus - Past Surgical History Past Surgical History: Yes: Colonoscopy, Upper Endoscopy - Alcohol/Substance Use Hx Alcohol Use: No History of Substance Use: reports: None - Smoking History Smoking history: Former smoker Have you smoked in the past 12 months: No Aproximately how many cigarettes per day: 0 If you are a former smoker, when did you quit?: 25 years - Social History Usual Living Arrangement: With Child ADL: Family Assistance Occupation: worked in [employer] with exposures History of Recent Travel: No Home Medications - Allergies Allergies/Adverse Reactions: Allergies Allergy/AdvReac Type Severity Reaction Status Date / Time vancomycin AdvReac Mild Itching Verified 09/09/19 20:34 - Home Medications Home Medications: Ambulatory Orders Digoxin [Lanoxin -] 0.125 mg PO DAILY 07/20/17 Insulin Detemir [Levemir Flextouch] 10 unit SQ ACBK #1 insuln.pen MDD 1 07/29/17 Melatonin 5 mg PO HS PRN tab 07/29/17 Finasteride [Proscar -] 5 mg PO DAILY 09/05/17 Lisinopril [Zestril] 2.5 mg PO DAILY 09/05/17 Simvastatin 20 mg PO DAILY 09/05/17 Phenazopyridine HCl [Pyridium -] 100 mg PO TID #90 tablet 03/26/18 Clopidogrel Bisulfate [Plavix -] 75 mg PO DAILY tablet 04/19/19 Digoxin [Lanoxin -] 0.25 mg PO DAILY tablet 04/19/19 Docusate Sodium [Colace -] 300 mg PO HS capsule 04/19/19 Gabapentin [Neurontin -] 900 mg PO TID capsule 04/19/19 Insulin Sliding Scale [Novolog Vial Sliding Scale -] 1 vial SQ ACHS units 04/19/19 Lidocaine 5% Top. Ointment [Xylocaine 5% Top. Ointment -] 1 applic TP BID tube 04/19/19 Lidocaine Patch Removal [Lidoderm Patch Removal] 1 each MC DAILY@2200 each 04/19/19 Mag Hydrox/Al Hydrox/Simeth [Mylanta Oral Suspension -] 30 ml PO Q6H PRN cup 04/19/19 Melatonin 10 mg PO HS tab 04/19/19 Methylnaltrexone [place] [Relistor -] 12 mg SQ DAILY kit 04/19/19 Metoprolol Succinate [Toprol XL -] 50 mg PO DAILY tab.sr.24h 04/19/19 Polyethylene Glycol 3350 [Miralax 119 gm Btl -] 17 gm PO BID bottle 04/19/19 Rivaroxaban [Xarelto -] 20 mg PO DAILY@1800 tablet 04/19/19 Tamsulosin HCl [Flomax -] 0.4 mg PO DAILY@0830 cap.er.24h 04/19/19 levETIRAcetam [Levetiracetam -] 750 mg PO DAILY tab.er.24h 04/19/19 oxyCODONE HCL [Roxicodone -] 30 mg PO Q6H PRN tablet MDD 4 04/19/19 Family Medical History Family History: Denies Review of Systems - Review of Systems Constitutional: reports: Chills, Fever, Malaise, Weakness Eyes: reports: No Symptoms HENT: reports: No Symptoms Neck: reports: No Symptoms Cardiovascular: reports: No Symptoms Respiratory: reports: No Symptoms Gastrointestinal: reports: No Symptoms Genitourinary: reports: No Symptoms Musculoskeletal: reports: No Symptoms Integumentary: reports: No Symptoms Neurological: reports: No Symptoms Endocrine: reports: No Symptoms Hematology/Lymphatic: reports: No Symptoms Physical Exam Vital Signs: Vital Signs Temperature 99.0 F 09/10/19 12:05 Pulse Rate 105 H 09/10/19 12:05 Respiratory Rate 20 09/10/19 12:05 Blood Pressure 85/46 L 09/10/19 12:05 O2 Sat by Pulse Oximetry (%) 100 09/10/19 12:05 Constitutional: Yes: Calm Eyes: Yes: Conjunctiva Clear Cardiovascular: Yes: Tachycardia, S1, S2 Respiratory: Yes: CTA Bilaterally, On Nasal O2 Gastrointestinal: Yes: Soft, Abdomen, Obese Renal/: Yes: Vasques Present, Hematuria Musculoskeletal: Yes: Muscle Weakness Edema: Yes Edema: LLE: Trace, RLE: Trace Integumentary: Yes: WNL Neurological: Yes: Oriented Psychiatric: Yes: Oriented Labs: CBC, BMP 09/10/19 08:11 09/10/19 08:11 Imaging - Results Chest X-ray: Report Reviewed Problem List - Problems (1) JANETT (acute kidney injury) Code(s): N17.9 - ACUTE KIDNEY FAILURE, UNSPECIFIED (2) CHF (congestive heart failure) Code(s): I50.9 - HEART FAILURE, UNSPECIFIED (3) COPD (chronic obstructive pulmonary disease) Code(s): J44.9 - CHRONIC OBSTRUCTIVE PULMONARY DISEASE, UNSPECIFIED (4) Lactic acidosis Code(s): E87.2 - ACIDOSIS Assessment/Plan Current Medications Generic Name Dose Route Start Last Admin Trade Name Freq PRN Reason Stop Dose Admin Al Hydroxide/Mg Hydroxide 30 ml 09/10/19 07:06 Mylanta Oral Suspension - PO Q6H PRN DYSPEPSIA Atorvastatin Calcium 10 mg 09/10/19 22:00 Lipitor - PO HS AMARI Clopidogrel Bisulfate 75 mg 09/11/19 10:00 Plavix - PO DAILY [facility] Fentanyl 50 mcg 09/10/19 09:44 Sublimaze Injection - IVPUSH [id number] PRN PAIN-PACU ORDER X 4 DOSES ONLY Finasteride 5 mg 09/10/19 10:00 Proscar - PO DAILY [facility] Gabapentin 900 mg 09/10/19 14:00 Neurontin - PO TID [facility] Ceftriaxone Sodium 2 gm/ 50 mls @ 100 mls/hr 09/10/19 22:00 Dextrose IVPB DAILY [facility] Protocol Sodium Chloride 1,000 mls @ 83 mls/hr 09/10/19 05:00 09/10/19 07:12 Normal Saline - IV 83 mls/hr ASDIR [facility] Administration Lactated Ringer's 1,000 mls @ 125 mls/hr 09/10/19 09:45 Lactated Ringers Solution IV ASDIR [facility] Insulin Aspart 1 vial 09/10/19 07:00 09/10/19 13:02 Novolog Vial Sliding Scale - SQ Not Given ACHS [facility] Protocol Lactated Ringer's 1,000 ml 09/10/19 13:57 Lactated Ringers Solution IV 09/10/19 13:58 ONCE ONE Lidocaine HCl 1 applic 09/10/19 10:00 Xylocaine 5% Top. Ointment TP BID [facility] Melatonin 10 mg 09/10/19 22:00 Melatonin PO HS [facility] Methylnaltrexone [place] 12 mg 09/10/19 10:00 Relistor - SQ DAILY [facility] Metoprolol Succinate 50 mg 09/10/19 10:00 Toprol Xl - PO DAILY [facility] Ondansetron HCl 4 mg 09/10/19 09:44 Zofran Injection IVPUSH Q6H PRN NAUSEA AND/OR VOMITING Oxycodone HCl 30 mg 09/10/19 12:00 Roxicodone - PO Q6H PRN PAIN LEVEL 7 - 10 Phenazopyridine HCl 100 mg 09/10/19 14:00 Pyridium - PO TID [facility] Polyethylene Glycol 17 gm 09/10/19 10:00 Miralax (For Daily Use) - PO BID [facility] Promethazine HCl 12.5 mg 09/10/19 09:44 Phenergan Injection - IVPB Q6H PRN NAUSEA-FOR RESCUE AFTER 15 MIN Tamsulosin HCl 0.4 mg 09/10/19 08:30 Flomax - PO DAILY@0830 [facility] Impression 1. JANETT 2. lactic acidosis 3. sepsis 4. chf 5. hld 6. hx htn 7. nephrolithiasis 8. shock 9. hydronephrosis 10. obesity 11. copd Plan - janett likely from sepsis and hypotension - fluid bolus - transfer to ICU - monitor bp - maintain map 65 - trend lactic acid - pt is s/p cystoscopy - discussed with urology - disussed with ICU team - monitor urine output
--- NOTE | 2019-09-10 14:01 | PROC ---
Procedure Note Procedure: PROCEDURE NOTE: Internal jugular central line placement under ultrasound guidance PROCEDURE HEAD START TEACHER: Efe Martinez M.D., PGY3 ATTENDING PHYSICIAN: Dr. Carranza INDICATION: Persistent hypotension requiring vasoactive agent CONSENT: Written consent was obtained from pt prior to the procedure. Indications, risks, and benefits were explained at length. PROCEDURE SUMMARY: A time out was performed. My hands were washed immediately prior to the procedure. I wore a surgical cap, mask with protective eyewear, sterile gown and sterile gloves throughout the procedure. The patient was placed in supine position. The right chest region was prepped using chlorhexidine scrub and draped in sterile fashion. The medial and lateral heads of the sternocleidomastoid muscle, as well as the carotid pulse were identified. The internal jugular vein was identified using dynamic ultrasound. Anesthesia was achieved using Lidocaine 1 percent without epinephrine. Using real-time out of plane guidance, the introducer needle was inserted into the internal jugular vein under direct ultrasound visualization. Venous blood was withdrawn. The syringe was removed and a guidewire was advanced into the introducer needle. The guidewire was visualized in the internal jugular vein by ultrasound. A small incision was made at the skin surface with a scalpel and the introducer needle was exchanged for a dilator over the guidewire. After appropriate dilation was obtained, the dilator was exchanged over the wire for a triple lumen central venous catheter. The wire was removed and the catheter was sutured in place at 18 cm. A biopatch and a sterile tegaderm were placed over the catheter at the insertion site. At time of procedure completion, all ports aspirated and flushed properly. The patient tolerated the procedure without any hemodynamic compromise. Post-procedure chest x-ray revealed line in satisfactory position. Estimated blood loss is <5 cc.
[2019-09-10] MEDS: GABAPENTIN 300 MG CAPSULE PO SCH ×2 (14:05→21:16)
[2019-09-10] MEDS: oxyCODONE HCL 5 MG TABLET PO PRN ×2 (14:05→21:18)
[2019-09-10 14:13] LABS: ANISOCYTOSIS 0; MACROCYTOSIS 1+; PLATELET ESTIMATE NORMAL
--- NOTE | 2019-09-10 14:56 | PN ---
Progress Note, Physician Chief Complaint: Urosepsis Bacteremia Left Hydronephrosis History of Present Illness: NAD, febrile Pt s/p uretral stent placement Operative Date: 09/10/19 Pre-Operative Diagnosis: left ureteral stone with high grade obstruction; gram negative sepsis; acute renal injury Operation: cystoscopy/left retrograde pyelogram/left ureteroscopic stone manipulation and stent placement. Findings: high grade hydronephrosis with obstructing 1+ ureteral stone Post-Operative Diagnosis: Same as Pre-op Surgeon: Tyrell Little - Current Medication List Current Medications: Active Medications Al Hydroxide/Mg Hydroxide (Mylanta Oral Suspension -) 30 ml PO Q6H PRN PRN Reason: DYSPEPSIA Atorvastatin Calcium (Lipitor -) 10 mg PO HS [facility] Clopidogrel Bisulfate (Plavix -) 75 mg PO DAILY [facility] Fentanyl (Sublimaze Injection -) 50 mcg IVPUSH [id number] PRN PRN Reason: PAIN-PACU ORDER X 4 DOSES ONLY Finasteride (Proscar -) 5 mg PO DAILY [facility] Gabapentin (Neurontin -) 900 mg PO TID [facility] Ceftriaxone Sodium 2 gm/ (Dextrose) 50 mls @ 100 mls/hr IVPB DAILY [facility]; Protocol Sodium Chloride (Normal Saline -) 1,000 mls @ 83 mls/hr IV ASDIR [facility] Last Admin: 09/10/19 07:12 Dose: 83 mls/hr Documented by: Lactated Ringer's (Lactated Ringers Solution) 1,000 mls @ 125 mls/hr IV ASDIR [facility] Insulin Aspart (Novolog Vial Sliding Scale -) 1 vial SQ ACHS [facility]; Protocol Last Admin: 09/10/19 13:02 Dose: Not Given Documented by: Lactated Ringer's (Lactated Ringers Solution) 1,000 ml IV ONCE ONE Stop: 09/10/19 14:52 Lidocaine HCl (Xylocaine 5% Top. Ointment) 1 applic TP BID [facility] Melatonin (Melatonin) 10 mg PO HS [facility] Methylnaltrexone [place] (Relistor -) 12 mg SQ DAILY [facility] Metoprolol Succinate (Toprol Xl -) 50 mg PO DAILY [facility] Ondansetron HCl (Zofran Injection) 4 mg IVPUSH Q6H PRN PRN Reason: NAUSEA AND/OR VOMITING Oxycodone HCl (Roxicodone -) 30 mg PO Q6H PRN PRN Reason: PAIN LEVEL 7 - 10 Phenazopyridine HCl (Pyridium -) 100 mg PO TID [facility] Polyethylene Glycol (Miralax (For Daily Use) -) 17 gm PO BID [facility] Promethazine HCl (Phenergan Injection -) 12.5 mg IVPB Q6H PRN PRN Reason: NAUSEA-FOR RESCUE AFTER 15 MIN Tamsulosin HCl (Flomax -) 0.4 mg PO DAILY@0830 [facility] - Objective Vital Signs: Vital Signs Temperature 99.0 F 09/10/19 12:05 Pulse Rate 105 H 09/10/19 12:05 Respiratory Rate 09/10/19 12:05 Blood Pressure 85/46 L 09/10/19 12:05 O2 Sat by Pulse Oximetry (%) 100 09/10/19 12:05 Constitutional: Yes: Well Nourished, No Distress, Obese Cardiovascular: Yes: Tachycardia Respiratory: Yes: Regular, Diminished Gastrointestinal: Yes: Normal Bowel Sounds, Soft, Tenderness (diffuse) Genitourinary: Yes: Vasques Present Musculoskeletal: Yes: Muscle Weakness Edema: No Peripheral Pulses WNL: Yes Neurological: Yes: Alert, Oriented Psychiatric: Yes: Alert, Oriented Labs: CBC, BMP 09/10/19 08:11 09/10/19 08:11 INR, PTT INR 2.43 (0.83-1.09) H 09/10/19 08:11 Problem List - Problems (1) Bacteremia Assessment/Plan: -BC+ UC pending -ID consult -IV abx -Urology consult -Febrile -acetaminophen for fever>100.0F -monitor labs Problems reviewed: Yes Code(s): R78.81 - BACTEREMIA (2) JANETT (acute kidney injury) Assessment/Plan: -Baseline Cr at 1.0-1.2 -Nephrology consult -2/2 to hydronephrosis + UTI -Monitor trend Problems reviewed: Yes Code(s): N17.9 - ACUTE KIDNEY FAILURE, UNSPECIFIED (3) Obstructive nephropathy Assessment/Plan: -Operative Date: 09/10/19 Pre-Operative Diagnosis: left ureteral stone with high grade obstruction; gram negative sepsis; acute renal injury Operation: cystoscopy/left retrograde pyelogram/left ureteroscopic stone manipulation and stent placement. Findings: high grade hydronephrosis with obstructing 1+ ureteral stone Post-Operative Diagnosis: Same as Pre-op Surgeon: El-Masry,Tyrell S -Monitor cr trend Problems reviewed: Yes Code(s): N13.8 - OTHER OBSTRUCTIVE AND REFLUX UROPATHY (4) Sepsis Assessment/Plan: -LA elevated -IVF -IV abx -ID consult -Repeat LA in AM -Cultures pending -Acetaminophen for fever -Monitor daily labs Problems reviewed: Yes Code(s): A41.9 - SEPSIS, UNSPECIFIED ORGANISM Qualifiers: Sepsis type: sepsis due to unspecified organism Qualified Code(s): A41.9 - Sepsis, unspecified organism (5) Atrial fibrillation Assessment/Plan: -Chronic, rate controlled -Continue Xarelto -Tele monitor -Cardiology consult Problems reviewed: Yes Code(s): I48.91 - UNSPECIFIED ATRIAL FIBRILLATION (6) Diabetes Assessment/Plan: -Last A1c 7.4 in 04/29 -Recheck A1c -ISS -Diabetic/sodium diet Problems reviewed: Yes Code(s): E11.9 - TYPE 2 DIABETES MELLITUS WITHOUT COMPLICATIONS Qualifiers: Diabetes mellitus type: type 2 (7) Morbid obesity Problems reviewed: Yes Code(s): E66.01 - MORBID (SEVERE) OBESITY DUE TO EXCESS CALORIES Assessment/Plan See problem list
[2019-09-10] MEDS ORDERED: LACTATED RINGERS SOLUTION 1000 ML INFUS.BAG IV PRN (16:40)
[2019-09-10] MEDS: PHENAZOPYRIDINE HCL 100 MG TABLET (FP) PO SCH ×2 (16:53→21:39)
[2019-09-10] MEDS ORDERED: RIVAROXABAN 20 MG TABLET PO SCH (18:00)
[2019-09-10] MEDS: POLYETHYLENE GLYCOL 3350 119 GM BTL PO SCH ×2 (18:18→21:11)
[2019-09-10] MEDS: TAMSULOSIN HCL 0.4 MG CAP PO SCH (18:18)
[2019-09-10] MEDS: LIDOCAINE HCL 5% TOP OINTMENT 50 GM TUBE TP SCH ×2 (18:19→21:39)
[2019-09-10] MEDS: Methylnaltrexone Bromide 12 MG/0.6 ML KIT SQ SCH (18:19)
[2019-09-10] MEDS: FINASTERIDE 5 MG TABLET (FP) PO SCH (18:19)
[2019-09-10] MEDS ORDERED: NOREPINEPHRINE BITARTRATE 8,000 MCG in DEXTROSE 5%-WATER - 492 ML IV SCH (19:15)
[2019-09-10] MEDS ORDERED: NOREPINEPHRINE BITARTRATE 4 MG/4 ML ML IV ONE (19:36)
[2019-09-10 19:51] LABS: BASO % 0.2 % (0-2.0); EOS % 0.2 % (0-4.5); HEMOGLOBIN 10.6 GM/dL (11.7-16.9); MCH 30.1 pg (25.7-33.7); MEAN CELL VOLUME 91.1 fl (80-96); MEAN PLT VOLUME 7.6 fl (7.5-11.1); NEUT % 86.6 % (42.8-82.8); PLATELET COUNT 92 K/MM3 (134-434); RBC 3.52 M/mm3 (4.00-5.60); RDW 15.7 % (11.9-15.9); WHITE BLOOD COUNT 13.6 K/mm3 (4.0-10.0)
[2019-09-10] MEDS ORDERED: LACTATED RINGERS SOLUTION 1,000 ML/1,000 ML INFUS.BAG IV SCH (20:00)
[2019-09-10] MEDS ORDERED: VANCOMYCIN HCL 2,000 MG in DEXTROSE 5%-WATER - 500 ML IVPB ONE (20:05)
[2019-09-10 20:21] LABS: BLOOD UREA NITROGEN 23.6 mg/dL (7-18); CALCIUM 7.5 mg/dL (8.5-10.1); CREATININE 1.9 mg/dL (0.55-1.3); POTASSIUM 4.3 mmol/L (3.5-5.1)
[2019-09-10] MEDS ORDERED: FAMOTIDINE 20 MG/50 ML IVPB 20 MG/50 ML MG IVPB ONE (20:21)
[2019-09-10] MEDS ORDERED: PIPERACILLIN/TAZOB 4.5 GM 4.5 GM in DEXTROSE 5%-WATER 100 ML IVPB SCH (20:30)
[2019-09-10] MEDS ORDERED: PIPERACILLIN/TAZOBACTAM 4.5 GM VIAL IVPB ONE (20:34)
[2019-09-10] MEDS ORDERED: DEXTROSE 5%-WATER - 50 ML IVPB ONE (20:34)
[2019-09-10] MEDS ORDERED: DEXTROSE 5%-WATER 100 ML IVPB ONE (20:34)
[2019-09-10] MEDS ORDERED: PT OWN MED DRAWER 7, Y5N ONE (21:15)
[2019-09-10] MEDS ORDERED: CEFTRIAXONE 2 GM in DEXTROSE 5%-WATER - 50 ML IVPB SCH (22:00)
[2019-09-10] MEDS ORDERED: ATORVASTATIN CA 10 MG TABLET (FP) PO SCH (22:00)
[2019-09-10] MEDS ORDERED: MELATONIN 5 MG TABLETS PO SCH (22:00)
--- NOTE | 2019-09-11 00:02 | PN ---
Progress Note (short form) - Note Progress Note: ID CONSULT DICTATED
[2019-09-11] MEDS ORDERED: MEROPENEM 500 MG VIAL (RESTRICTED TO ID) IVPB ONE ×3 (01:56→17:29)
[2019-09-11] MEDS ORDERED: DEXTROSE 5%-WATER 100 ML IVPB ONE ×3 (01:57→17:29)
[2019-09-11] MEDS: MEROPENEM 500 MG in DEXTROSE 5%-WATER 100 ML IVPB SCH ×3 (01:59→17:34)
[2019-09-11] MEDS: oxyCODONE HCL 5 MG TABLET PO PRN ×4 (02:39→21:31)
[2019-09-11] MEDS ORDERED: VANCOMYCIN HCL 2,000 MG in DEXTROSE 5%-WATER - 500 ML IVPB ONE (04:00)
[2019-09-11] MEDS: PHENAZOPYRIDINE HCL 100 MG TABLET (FP) PO SCH ×3 (06:04→22:24)
[2019-09-11] MEDS: GABAPENTIN 300 MG CAPSULE PO SCH ×3 (06:04→21:28)
[2019-09-11] MEDS: INSULIN SLIDING SCALE (NOVOLOG) 1 VIAL SQ SCH ×4 (06:05→21:29)
[2019-09-11 07:49] LABS: BASO % 0.3 % (0-2.0); EOS % 0.8 % (0-4.5); HEMATOCRIT 33.1 % (35.4-49); HEMOGLOBIN 10.9 GM/dL (11.7-16.9); LYMPH % 7.5 % (8-40); MCH 29.7 pg (25.7-33.7); MCHC 33.1 g/dl (32.0-35.9); MEAN CELL VOLUME 89.7 fl (80-96); MEAN PLT VOLUME 7.4 fl (7.5-11.1); MONO % 4.4 % (3.8-10.2); PLATELET COUNT 88 K/MM3 (134-434); RBC 3.69 M/mm3 (4.00-5.60); RDW 15.9 % (11.9-15.9); WHITE BLOOD COUNT 13.6 K/mm3 (4.0-10.0)
[2019-09-11 08:19] LABS: ALBUMIN 2.6 g/dl (3.4-5.0); BILIRUBIN,TOTAL 0.7 mg/dL (0.2-1); BLOOD UREA NITROGEN 25.2 mg/dL (7-18); CALCIUM 7.8 mg/dL (8.5-10.1); CREATININE 1.9 mg/dL (0.55-1.3); MAGNESIUM 1.4 mg/dL (1.8-2.4); PHOSPHOROUS 2.9 mg/dL (2.5-4.9); POTASSIUM 4.2 mmol/L (3.5-5.1); TOT PROT 6.1 g/dl (6.4-8.2)
[2019-09-11] MEDS: TAMSULOSIN HCL 0.4 MG CAP PO SCH (08:36)
[2019-09-11] MEDS ORDERED: MAGNESIUM SULF 50% (8.12 MEQ/2 ML-1 GM VIAL) IVPB ONE (09:00)
[2019-09-11] MEDS: POLYETHYLENE GLYCOL 3350 119 GM BTL PO SCH ×2 (09:34→21:29)
[2019-09-11] MEDS: FINASTERIDE 5 MG TABLET (FP) PO SCH (09:46)
[2019-09-11] MEDS ORDERED: PT OWN MED DRAWER 7, Y5N ONE ×3 (09:50→17:29)
[2019-09-11] MEDS ORDERED: CLOPIDOGREL BISULFATE 75 MG TABLET (FP) PO SCH (10:00)
[2019-09-11] MEDS: Methylnaltrexone Bromide 12 MG/0.6 ML KIT SQ SCH (10:40)
[2019-09-11] MEDS ORDERED: ACETAMINOPHEN 1000 MG/100 ML VIAL (NON FORMULARY) IVPB ONE ×2 (10:45→17:42)
[2019-09-11] MEDS: LIDOCAINE HCL 5% TOP OINTMENT 50 GM TUBE TP SCH ×2 (10:53→21:31)
--- NOTE | 2019-09-11 11:25 | PN ---
Progress Note (short form) - Note Progress Note: RENAL Pt is awake and alert comfortable Last Vital Signs Temp Pulse Resp BP Pulse Ox 102.7 F H 118 H 24 H 135/73 100 09/11/19 10:00 09/11/19 10:44 09/11/19 10:44 09/11/19 10:00 09/10/19 12:05 lungs clear cvs s1s2 rr abd soft ext no edema neuro a+ox3 CBC, BMP 09/11/19 05:30 09/11/19 05:30 Current Medications Generic Name Dose Route Start Last Admin Trade Name Freq PRN Reason Stop Dose Admin Al Hydroxide/Mg Hydroxide 30 ml 09/10/19 07:06 Mylanta Oral Suspension - PO Q6H PRN DYSPEPSIA Atorvastatin Calcium 10 mg 09/10/19 22:00 09/10/19 21:11 Lipitor - PO 10 mg HS [facility] Administration Clopidogrel Bisulfate 75 mg 09/11/19 10:00 09/11/19 09:45 Plavix - PO 75 mg DAILY [facility] Administration Fentanyl 50 mcg 09/10/19 09:44 Sublimaze Injection - IVPUSH [id number] PRN PAIN-PACU ORDER X 4 DOSES ONLY Finasteride 5 mg 09/10/19 10:00 09/11/19 09:46 Proscar - PO 5 mg DAILY [facility] Administration Gabapentin 900 mg 09/10/19 14:00 09/11/19 06:04 Neurontin - PO 900 mg TID [facility] Administration Norepinephrine Bitartrate 8, 500 mls @ 16.403 mls/hr 09/10/19 19:15 09/11/19 03:00 000 mcg/ Dextrose IV 0 mcg/kg/min ASDIR [facility] 0 mls/hr Titration Protocol 0.03 MCG/KG/MIN Lactated Ringer's 1,000 ml in 1,000 mls @ 250 mls/hr 09/10/19 20:00 09/10/19 20:10 Lactated Ringers Solution IV 250 mls/hr ASDIR [facility] Administration Meropenem 500 mg/ Dextrose 100 mls @ 200 mls/hr 09/11/19 02:00 09/11/19 10:57 IVPB 200 mls/hr Q8H-IV [facility] Administration Insulin Aspart 1 vial 09/10/19 07:00 09/11/19 06:05 Novolog Vial Sliding Scale - SQ Not Given ACHS [facility] Protocol Lactated Ringer's 1,000 ml 09/10/19 16:40 Lactated Ringers Solution IV PRN PRN MAP <65w/ clear lungs/no urine Lidocaine HCl 1 applic 09/10/19 10:00 09/11/19 10:53 Xylocaine 5% Top. Ointment TP 1 applic BID [facility] Administration Melatonin 10 mg 09/10/19 22:00 09/10/19 21:11 Melatonin PO Not Given HS [facility] Methylnaltrexone [place] 12 mg 09/10/19 10:00 09/11/19 10:40 Relistor - SQ Not Given DAILY [facility] Metoprolol Succinate 50 mg 09/11/19 10:45 09/11/19 10:44 Toprol Xl - PO 50 mg DAILY [facility] Administration Ondansetron HCl 4 mg 09/10/19 09:44 Zofran Injection IVPUSH Q6H PRN NAUSEA AND/OR VOMITING Oxycodone HCl 30 mg 09/10/19 12:00 09/11/19 08:34 Roxicodone - PO 30 mg Q6H PRN Administration PAIN LEVEL 7 - 10 Phenazopyridine HCl 100 mg 09/10/19 14:00 09/11/19 06:04 Pyridium - PO 100 mg TID [facility] Administration Polyethylene Glycol 17 gm 09/10/19 10:00 09/11/19 09:34 Miralax (For Daily Use) - PO Not Given BID [facility] Promethazine HCl 12.5 mg 09/10/19 09:44 Phenergan Injection - IVPB Q6H PRN NAUSEA-FOR RESCUE AFTER 15 MIN Tamsulosin HCl 0.4 mg 09/10/19 08:30 09/11/19 08:36 Flomax - PO 0.4 mg DAILY@0830 [facility] Administration Impression 1. JANETT 2. lactic acidosis 3. sepsis 4. chf 5. hld 6. hx htn 7. nephrolithiasis 8. shock 9. hydronephrosis 10. obesity 11. copd Plan continue to monitor keep hydrated MV
[2019-09-11] MEDS ORDERED: LACTATED RINGERS SOLUTION 1,000 ML/1,000 ML INFUS.BAG IV SCH (11:45)
--- NOTE | 2019-09-11 12:10 | PN ---
Teaching Attending Note Name of Resident: Estefany Fink ATTENDING PHYSICIAN STATEMENT I saw and evaluated the patient. I reviewed the resident's note and discussed the case with the resident. I agree with the resident's findings and plan as documented. SUBJECTIVE: Pt seen and examined in the ICU. Off pressors. Febrile overnight. Urine and blo od cultures growing gram negative bacilli. OBJECTIVE: Vital Signs Period Temp Pulse Resp BP Sys/Mixon Pulse Ox Last 24 Hr 97.1 F-102.7 F 76-118 15-24 71-143/44-90 95 Intake & Output 09/08/19 09/09/19 09/10/19 09/11/19 23:59 23:59 23:59 23:59 Intake Total 5550 2610 Output Total 200 500 Balance 5350 2110 Weight 155.582 kg 145.8 kg 145.15 kg Gen: NAD at rest Heart: RRR Lung: decreased breath sounds at the bases Abd: soft, nontender Ext: no edema CBC, BMP 09/11/19 05:30 09/11/19 05:30 Active Medications Al Hydroxide/Mg Hydroxide (Mylanta Oral Suspension -) 30 ml PO Q6H PRN PRN Reason: DYSPEPSIA Atorvastatin Calcium (Lipitor -) 10 mg PO HS [facility] Last Admin: 09/10/19 21:11 Dose: 10 mg Documented by: Clopidogrel Bisulfate (Plavix -) 75 mg PO DAILY [facility] Last Admin: 09/11/19 09:45 Dose: 75 mg Documented by: Fentanyl (Sublimaze Injection -) 50 mcg IVPUSH [id number] PRN PRN Reason: PAIN-PACU ORDER X 4 DOSES ONLY Finasteride (Proscar -) 5 mg PO DAILY [facility] Last Admin: 09/11/19 09:46 Dose: 5 mg Documented by: Gabapentin (Neurontin -) 900 mg PO TID [facility] Last Admin: 09/11/19 06:04 Dose: 900 mg Documented by: Norepinephrine Bitartrate 8, (000 mcg/ Dextrose) 500 mls @ 16.403 mls/hr IV ASDIR [facility]; Protocol Last Titration: 09/11/19 03:00 Dose: 0 mcg/kg/min, 0 mls/hr Documented by: Meropenem 500 mg/ Dextrose 100 mls @ 200 mls/hr IVPB Q8H-IV [facility] Last Admin: 09/11/19 10:57 Dose: 200 mls/hr Documented by: Lactated Ringer's (Lactated Ringers Solution) 1,000 ml in 1,000 mls @ 100 mls/hr IV ASDIR [facility] Last Admin: 09/11/19 12:00 Dose: 100 mls/hr Documented by: Insulin Aspart (Novolog Vial Sliding Scale -) [address] [facility]; Protocol Last Admin: 09/11/19 11:23 Dose: 2 units Documented by: Lidocaine HCl (Xylocaine 5% Top. Ointment) 1 applic TP BID [facility] Last Admin: 09/11/19 10:53 Dose: 1 applic Documented by: Melatonin (Melatonin) 10 mg PO HS [facility] Last Admin: 09/10/19 21:11 Dose: Not Given Documented by: Methylnaltrexone [place] (Relistor -) 12 mg SQ DAILY [facility] Last Admin: 09/11/19 10:40 Dose: Not Given Documented by: Metoprolol Succinate (Toprol Xl -) 50 mg PO DAILY [facility] Last Admin: 09/11/19 10:44 Dose: 50 mg Documented by: Ondansetron HCl (Zofran Injection) 4 mg IVPUSH Q6H PRN PRN Reason: NAUSEA AND/OR VOMITING Oxycodone HCl (Roxicodone -) 30 mg PO Q6H PRN PRN Reason: PAIN LEVEL 7 - 10 Last Admin: 09/11/19 08:34 Dose: 30 mg Documented by: Phenazopyridine HCl (Pyridium -) 100 mg PO TID [facility] Last Admin: 09/11/19 06:04 Dose: 100 mg Documented by: Polyethylene Glycol (Miralax (For Daily Use) -) 17 gm PO BID [facility] Last Admin: 09/11/19 09:34 Dose: Not Given Documented by: Promethazine HCl (Phenergan Injection -) 12.5 mg IVPB Q6H PRN PRN Reason: NAUSEA-FOR RESCUE AFTER 15 MIN Tamsulosin HCl (Flomax -) 0.4 mg PO DAILY@0830 [facility] Last Admin: 09/11/19 08:36 Dose: 0.4 mg Documented by: ASSESSMENT AND PLAN: UTI Left Hydroneprhosis/Ureterolithiasis s/p cystoscopy/stent placement Gram Negative Bacteremia Septic Shock resolving Acute Kidney Injury Lactic Acidosis COPD CAD Atrial Fibrillation HTN Hyperlipidemia Morbid Obesity - continue antibiotics - f/u cultures - IVF - monitor urine output, creatinine - off pressors, maintain MAP >65 - resume home BP meds - PO as tolerated - rate control - resume anticoagulation when ok with surgery - DVT prophylaxis - can monitor on telemetry
--- NOTE | 2019-09-11 12:42 | PN ---
Progress Note, Physician - Current Medication List Current Medications: Active Medications Al Hydroxide/Mg Hydroxide (Mylanta Oral Suspension -) 30 ml PO Q6H PRN PRN Reason: DYSPEPSIA Atorvastatin Calcium (Lipitor -) 10 mg PO HS [facility] Last Admin: 09/10/19 21:11 Dose: 10 mg Documented by: Clopidogrel Bisulfate (Plavix -) 75 mg PO DAILY [facility] Last Admin: 09/11/19 09:45 Dose: 75 mg Documented by: Fentanyl (Sublimaze Injection -) 50 mcg IVPUSH [id number] PRN PRN Reason: PAIN-PACU ORDER X 4 DOSES ONLY Finasteride (Proscar -) 5 mg PO DAILY [facility] Last Admin: 09/11/19 09:46 Dose: 5 mg Documented by: Gabapentin (Neurontin -) 900 mg PO TID [facility] Last Admin: 09/11/19 06:04 Dose: 900 mg Documented by: Norepinephrine Bitartrate 8, (000 mcg/ Dextrose) 500 mls @ 16.403 mls/hr IV ASDIR [facility]; Protocol Last Titration: 09/11/19 03:00 Dose: 0 mcg/kg/min, 0 mls/hr Documented by: Meropenem 500 mg/ Dextrose 100 mls @ 200 mls/hr IVPB Q8H-IV [facility] Last Admin: 09/11/19 10:57 Dose: 200 mls/hr Documented by: Lactated Ringer's (Lactated Ringers Solution) 1,000 ml in 1,000 mls @ 100 mls/hr IV ASDIR [facility] Last Admin: 09/11/19 12:00 Dose: 100 mls/hr Documented by: Insulin Aspart (Novolog Vial Sliding Scale -) 1 vial SQ ACHS [facility]; Protocol Last Admin: 09/11/19 11:23 Dose: 2 units Documented by: Lidocaine HCl (Xylocaine 5% Top. Ointment) 1 applic TP BID [facility] Last Admin: 09/11/19 10:53 Dose: 1 applic Documented by: Melatonin (Melatonin) 10 mg PO [facility] Last Admin: 09/10/19 21:11 Dose: Not Given Documented by: Methylnaltrexone [place] (Relistor -) 12 mg SQ DAILY [facility] Last Admin: 09/11/19 10:40 Dose: Not Given Documented by: Metoprolol Succinate (Toprol Xl -) 50 mg PO DAILY [facility] Last Admin: 09/11/19 10:44 Dose: 50 mg Documented by: Ondansetron HCl (Zofran Injection) 4 mg IVPUSH Q6H PRN PRN Reason: NAUSEA AND/OR VOMITING Oxycodone HCl (Roxicodone -) 30 mg PO Q6H PRN PRN Reason: PAIN LEVEL 7 - 10 Last Admin: 09/11/19 08:34 Dose: 30 mg Documented by: Phenazopyridine HCl (Pyridium -) 100 mg PO TID [facility] Last Admin: 09/11/19 06:04 Dose: 100 mg Documented by: Polyethylene Glycol (Miralax (For Daily Use) -) 17 gm PO BID [facility] Last Admin: 09/11/19 09:34 Dose: Not Given Documented by: Promethazine HCl (Phenergan Injection -) 12.5 mg IVPB Q6H PRN PRN Reason: NAUSEA-FOR RESCUE AFTER 15 MIN Tamsulosin HCl (Flomax -) 0.4 mg PO DAILY@0830 [facility] Last Admin: 09/11/19 08:36 Dose: 0.4 mg Documented by: - Objective Vital Signs: Vital Signs Temperature 101.4 F H 09/11/19 12:03 Pulse Rate 118 H 09/11/19 12:00 Respiratory Rate 24 H 09/11/19 12:00 Blood Pressure 91/37 L 09/11/19 12:00 O2 Sat by Pulse Oximetry (%) 95 09/11/19 09:00 Cardiovascular: Yes: Tachycardia, S1, S2 Respiratory: Yes: Regular, CTA Bilaterally Gastrointestinal: Yes: Normal Bowel Sounds, Soft. No: Tenderness Labs: CBC, BMP 09/11/19 05:30 09/11/19 05:30 INR, PTT INR 2.43 (0.83-1.09) H 09/10/19 08:11 Problem List - Problems (1) Sepsis Assessment/Plan: IV ABX ID ON BOARD ICU MONITORING Code(s): A41.9 - SEPSIS, UNSPECIFIED ORGANISM Qualifiers: Sepsis type: sepsis due to unspecified organism Qualified Code(s): A41.9 - Sepsis, unspecified organism (2) UTI (urinary tract infection) Assessment/Plan: ABOVE Code(s): N39.0 - URINARY TRACT INFECTION, SITE NOT SPECIFIED (3) Atrial fibrillation with RVR Assessment/Plan: RESUME B-BLOCKERS Code(s): I48.91 - UNSPECIFIED ATRIAL FIBRILLATION (4) CHF (congestive heart failure) Code(s): I50.9 - HEART FAILURE, UNSPECIFIED (5) COPD (chronic obstructive pulmonary disease) Code(s): J44.9 - CHRONIC OBSTRUCTIVE PULMONARY DISEASE, UNSPECIFIED (6) Diabetes Assessment/Plan: [facility] Code(s): E11.9 - TYPE 2 DIABETES MELLITUS WITHOUT COMPLICATIONS Qualifiers: Diabetes mellitus type: type 2 (7) HTN (hypertension) Code(s): I10 - ESSENTIAL (PRIMARY) HYPERTENSION (8) Obstructive nephropathy Assessment/Plan: Operative Date: 09/10/19 Pre-Operative Diagnosis: left ureteral stone with high grade obstruction; gram negative sepsis; acute renal injury Operation: cystoscopy/left retrograde pyelogram/left ureteroscopic stone manipulation and stent placement. Findings: high grade hydronephrosis with obstructing 1+ ureteral stone Post-Operative Diagnosis: Same as Pre-op Surgeon: Tyrell Little Code(s): N13.8 - OTHER OBSTRUCTIVE AND REFLUX UROPATHY
--- NOTE | 2019-09-11 13:36 | PN ---
Progress Note (short form) - Note Progress Note: 64M multiple medical problems, s/p cystoscopy/left retrograde pyelogram/left ureteroscopic stone manipulation and stent placement for management of left ureteral stone with high grade obstruction; gram negative sepsis; acute renal injury. Under General Anesthesia. Pressor support D/C'd overnight. Vital Signs Temp 101.4 F H 09/11/19 12:03 Pulse 118 H 09/11/19 12:00 Resp 24 H 09/11/19 12:00 BP 91/37 L 09/11/19 12:00 Pulse Ox 95 09/11/19 09:00 Intake & Output 09/10/19 09/11/19 09/11/19 23:59 11:59 23:59 Intake Total 3950 2610 Output Total 150 500 Balance 3800 2110 Weight 321 lb 6.943 oz 320 lb 320 lb Intake: IV 3500 1560 LACTATED RINGERS SOLUTION 1500 1,000 ml In 1,000 ml @ 250 mls/hr IV ASDIR [facility] Rx#:[id number] Lactated Ringers Solution 500 1,000 ml @ 125 mls/hr IV ASDIR [facility] Rx#: [id number] Levophed - 8,000 Mcg In 60 D5w - 492 ml @ 0.03 MCG/ KG/MIN 16.403 mls/hr IV ASDIR [facility] Rx#:[id number] Normal Saline - 1,000 ml 3000 @ 1000 mls/hr IV ASDIR [facility] Rx#:[id number] IVPB 400 600 Oral 50 450 Output: Urine 150 500 Vasques 100 500 Other: Voiding Method Indwelling Catheter Indwelling Catheter Bowel Movement No No Height 5 ft 11 in 5 ft 11 in Body Mass Index (BMI) 44.8 44.6 Weight Measurement Method Built in [facility] CBC, BMP 09/11/19 05:30 09/11/19 05:30 - No anesthesia complications - Pain managed with oral regimen - Care as per ICU staff
--- NOTE | 2019-09-11 17:05 | PN ---
Physical Exam: SUBJECTIVE: Patient seen and examined. Feels feverish at this time. OBJECTIVE: Vital Signs Period Temp Pulse Resp BP Sys/Mixon Pulse Ox Last 24 Hr 97.1 F-102.7 F 76-118 15-24 71-143/37-108 95 GENERAL: The patient is awake, alert, and fully oriented, in no acute distress. HEAD: NCAT EYES: PERRL LUNGS: Breath sounds equal, clear to auscultation bilaterally HEART: Regular rate and rhythm, S1, S2 without murmur ABDOMEN: Soft, nontender, nondistended, normoactive bowel sounds EXTREMITIES:warm, well-perfused, no edema. SKIN: Warm, dry, normal turgor, no rashes or lesions noted Laboratory Last Values WBC 13.6 K/mm3 (4.0-10.0) H 09/11/19 05:30 RBC 3.69 M/mm3 (4.00-5.60) L 09/11/19 05:30 Hgb 10.9 GM/dL (11.7-16.9) L 09/11/19 05:30 Hct 33.1 % (35.4-49) L 09/11/19 05:30 MCV 89.7 fl (80-96) 09/11/19 05:30 MCH 29.7 pg (25.7-33.7) 09/11/19 05:30 MCHC 33.1 g/dl (32.0-35.9) 09/11/19 05:30 RDW 15.9 % (11.9-15.9) 09/11/19 05:30 Plt Count 88 K/MM3 (134-434) L 09/11/19 05:30 MPV 7.4 fl (7.5-11.1) L 09/11/19 05:30 Absolute Neuts (auto) 11.8 K/mm3 (1.5-8.0) H 09/11/19 05:30 Neutrophils % 87.0 % (42.8-82.8) H 09/11/19 05:30 Neutrophils % (Manual) 80.4 % (42.8-82.8) 09/10/19 08:11 Band Neutrophils % 13.4 % 09/10/19 08:11 Lymphocytes % 7.5 % (8-40) L 09/11/19 05:30 Lymphocytes % (Manual) 4.1 % (8-40) L 09/10/19 08:11 Monocytes % 4.4 % (3.8-10.2) 09/11/19 05:30 Monocytes % (Manual) 2 % (3.8-10.2) L 09/10/19 08:11 Eosinophils % 0.8 % (0-4.5) D 09/11/19 05:30 Eosinophils % (Manual) 0.0 % (0-4.5) 09/10/19 08:11 Basophils % 0.3 % (0-2.0) 09/11/19 05:30 Basophils % (Manual) 0.0 % (0-2.0) 09/10/19 08:11 Myelocytes % (Man) 0 % (0-2) 09/10/19 08:11 Promyelocytes % (Man) 0 % (0-2) 09/10/19 08:11 Blast Cells % (Manual) 0 % (0-0) 09/10/19 08:11 Nucleated RBC % 0 % (0-0) 09/11/19 05:30 Metamyelocytes 0 % (0-2) 09/10/19 08:11 Hypochromia 0 09/10/19 08:11 Platelet Estimate Normal 09/10/19 08:11 Polychromasia 1+ 09/10/19 08:11 Poikilocytosis 0 09/10/19 08:11 Anisocytosis 0 09/10/19 08:11 Microcytosis 1+ 09/10/19 08:11 Macrocytosis 1+ 09/10/19 08:11 PT with INR 28.90 SEC (9.7-13.0) H 09/10/19 08:11 INR 2.43 (0.83-1.09) H 09/10/19 08:11 PTT (Actin FS) 38.3 SECONDS (25.2-36.5) H 09/10/19 08:11 Sodium 136 mmol/L (136-145) 09/11/19 05:30 Potassium 4.2 mmol/L (3.5-5.1) 09/11/19 05:30 Chloride 103 mmol/L (98-107) 09/11/19 05:30 Carbon Dioxide 26 mmol/L (21-32) 09/11/19 05:30 Anion Gap 7 MMOL/L (8-16) L 09/11/19 05:30 BUN 25.2 mg/dL (7-18) H 09/11/19 05:30 Creatinine 1.9 mg/dL (0.55-1.3) H 09/11/19 05:30 Est GFR (CKD-EPI)AfAm 42.24 09/11/19 05:30 Est GFR (CKD-EPI)NonAf 36.45 09/11/19 05:30 POC Glucometer 145 UNITS (80-120) 09/11/19 16:56 Random Glucose 142 mg/dL (74-106) H 09/11/19 05:30 Lactic Acid 2.6 mmol/L (0.4-2.0) H* 09/11/19 05:30 Calcium 7.8 mg/dL (8.5-10.1) L 09/11/19 05:30 Phosphorus 2.9 mg/dL (2.5-4.9) 09/11/19 05:30 Magnesium 1.4 mg/dL (1.8-2.4) L 09/11/19 05:30 Total Bilirubin 0.7 mg/dL (0.2-1) 09/11/19 05:30 AST 52 U/L (15-37) H 09/11/19 05:30 ALT 27 U/L (13-61) 09/11/19 05:30 Alkaline Phosphatase 46 U/L (45-117) 09/11/19 05:30 Creatine Kinase 122 U/L (26-308) 09/09/19 21:30 Troponin I < 0.02 ng/ml (0.00-0.05) 09/09/19 21:30 Total Protein 6.1 g/dl (6.4-8.2) L 09/11/19 05:30 Albumin 2.6 g/dl (3.4-5.0) L 09/11/19 05:30 Urine Color Yellow 09/09/19 21:30 Urine Appearance Cloudy 09/09/19 21:30 Urine pH 6.0 (5.0-8.0) 09/09/19 21:30 Ur Specific [place] 1.016 (1.010-1.035) 09/09/19 21:30 Urine Protein Negative (NEGATIVE) 09/09/19 21:30 Urine Glucose (UA) Negative (NEGATIVE) 09/09/19 21:30 Urine Ketones Negative (NEGATIVE) 09/09/19 21:30 Urine Blood Trace (NEGATIVE) 09/09/19 21:30 Urine Nitrite Negative (NEGATIVE) 09/09/19 21:30 Urine Bilirubin Negative (NEGATIVE) 09/09/19 21:30 Urine Urobilinogen 1.0 mg/dL (0.2-1.0) 09/09/19 21:30 Ur Leukocyte Esterase 2+ (NEGATIVE) H 09/09/19 21:30 Urine WBC (Auto) 360 /uL (0-25.8) 09/09/19 21:30 Urine RBC (Auto) 30 /uL (0-23.9) 09/09/19 21:30 Urine Casts (Auto) 1 /uL (0-3.1) 09/09/19 21:30 U Epithel Cells (Auto) 3 /uL (0-25.1) 09/09/19 21:30 Urine Bacteria (Auto) >10,000 /uL (0-1359) 09/09/19 21:30 Blood Type O POSITIVE 09/10/19 10:00 Antibody Screen Negative 09/10/19 10:00 Active Medications Al Hydroxide/Mg Hydroxide (Mylanta Oral Suspension -) 30 ml PO Q6H PRN PRN Reason: DYSPEPSIA Atorvastatin Calcium (Lipitor -) 10 mg PO HS [facility] Last Admin: 09/10/19 21:11 Dose: 10 mg Documented by: Clopidogrel Bisulfate (Plavix -) 75 mg PO DAILY [facility] Last Admin: 09/11/19 09:45 Dose: 75 mg Documented by: Fentanyl (Sublimaze Injection -) 50 mcg IVPUSH [id number] PRN PRN Reason: PAIN-PACU ORDER X 4 DOSES ONLY Finasteride (Proscar -) 5 mg PO DAILY [facility] Last Admin: 09/11/19 09:46 Dose: 5 mg Documented by: Gabapentin (Neurontin -) 900 mg PO TID [facility] Last Admin: 09/11/19 14:54 Dose: 900 mg Documented by: Meropenem 500 mg/ Dextrose 100 mls @ 200 mls/hr IVPB Q8H-IV [facility] Last Admin: 09/11/19 10:57 Dose: 200 mls/hr Documented by: Lactated Ringer's (Lactated Ringers Solution) 1,000 ml in 1,000 mls @ 100 mls/hr IV ASDIR [facility] Last Admin: 09/11/19 12:00 Dose: 100 mls/hr Documented by: Insulin Aspart (Novolog Vial Sliding Scale -) 1 vial SQ ACHS [facility]; Protocol Last Admin: 09/11/19 17:01 Dose: Not Given Documented by: Lidocaine HCl (Xylocaine 5% Top. Ointment) 1 applic TP BID [facility] Last Admin: 09/11/19 10:53 Dose: 1 applic Documented by: Melatonin (Melatonin) 10 mg PO HS [facility] Last Admin: 09/10/19 21:11 Dose: Not Given Documented by: Methylnaltrexone [place] (Relistor -) 12 mg SQ DAILY [facility] Last Admin: 09/11/19 10:40 Dose: Not Given Documented by: Metoprolol Succinate (Toprol Xl -) 50 mg PO DAILY [facility] Last Admin: 09/11/19 10:44 Dose: 50 mg Documented by: Ondansetron HCl (Zofran Injection) 4 mg IVPUSH Q6H PRN PRN Reason: NAUSEA AND/OR VOMITING Oxycodone HCl (Roxicodone -) 30 mg PO Q6H PRN PRN Reason: PAIN LEVEL 7 - 10 Last Admin: 09/11/19 14:53 Dose: 30 mg Documented by: Phenazopyridine HCl (Pyridium -) 100 mg PO TID [facility] Last Admin: 09/11/19 06:04 Dose: 100 mg Documented by: Polyethylene Glycol (Miralax (For Daily Use) -) 17 gm PO BID [facility] Last Admin: 09/11/19 09:34 Dose: Not Given Documented by: Promethazine HCl (Phenergan Injection -) 12.5 mg IVPB Q6H PRN PRN Reason: NAUSEA-FOR RESCUE AFTER 15 MIN Tamsulosin HCl (Flomax -) 0.4 mg PO DAILY@0830 [facility] Last Admin: 09/11/19 08:36 Dose: 0.4 mg Documented by: ASSESSMENT/PLAN: This is a 64 year old male with PMH HTN, HLD, CHF (EF 50-55%), A-fib s/p PPM and on xarelto, CAD s/p 7 stents, 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 Was febrile with Tmax 105. #Neuro: A&Ox3 Endocrine: ISS + BGM Cardiovascular: Afib s/p PPM CHF HTN -On atorvastatin, Plavix, metoprolol Pulm / Resp: COPD Genitourinary: UTI Dark urine L obstructive nephrolithiasis -Tamsulosin -Finasteride -Pyridium -s/p cystoscopy and renal stone removal Hematologic: Infectious Disease: Gram negative -On Meropenem 09/10. Continue as per ID recommendations. -Lactate: 4.0-->3.2 FEN: - Lactated ringers Prophylaxis: Code Status / Family Conversation: Full code Dispo: Transfer to Med-surg for further management. Estefany Fink DO, PGY1 ICU Consult Service Visit type - Emergency Visit Emergency Visit: Yes ED Registration Date: 09/09/19 Care time: The patient presented to the Emergency Department on the above date and was hospitalized for further evaluation of their emergent condition. - New Patient This patient is new to me today: No - Critical Care Critical Care patient: Yes Total Critical Care Time (in minutes): 36 Critical Care Statement: The care of this patient involved high complexity decision making to prevent further life threatening deterioration of the patient's condition and/or to evaluate & treat vital organ system(s) failure or risk of failure. ATTENDING PHYSICIAN STATEMENT I saw and evaluated the patient. I reviewed the resident's note and discussed the case with the resident. I agree with the resident's findings and plan as documented. SUBJECTIVE: OBJECTIVE: ASSESSMENT AND PLAN:
[2019-09-11] MEDS ORDERED: PIPERACILLIN/TAZOB 4.5 GM 4.5 GM in DEXTROSE 5%-WATER 100 ML IVPB SCH (18:00)
[2019-09-11] MEDS ORDERED: ONDANSETRON 4 MG/2 ML VIAL IVPUSH PRN (20:40)
[2019-09-11] MEDS ORDERED: MAG HYDROX/AL HYDROX/SIMETH 30 ML UNIT-DOSE CUP PO PRN (20:40)
[2019-09-11] MEDS ORDERED: PROMETHAZINE HCL 25 MG/1 ML VIAL IVPB PRN (20:40)
[2019-09-11] MEDS: ATORVASTATIN CA 10 MG TABLET (FP) PO SCH (21:28)
[2019-09-11] MEDS: MELATONIN 5 MG TABLETS PO SCH (21:29)
--- NOTE | 2019-09-11 21:36 | PN ---
Progress Note, Physician History of Present Illness: LETHARGIC IN BED REMAINS FEBRILE WBC 13.6 BC GNR - Current Medication List Current Medications: Active Medications Al Hydroxide/Mg Hydroxide (Mylanta Oral Suspension -) 30 ml PO Q6H PRN PRN Reason: DYSPEPSIA Atorvastatin Calcium (Lipitor -) 10 mg PO HS [facility] Clopidogrel Bisulfate (Plavix -) 75 mg PO DAILY [facility] Finasteride (Proscar -) 5 mg PO DAILY [facility] Gabapentin (Neurontin -) 900 mg PO TID [facility] Lactated Ringer's (Lactated Ringers Solution) 1,000 ml in 1,000 mls @ 100 mls/hr IV ASDIR [facility] Meropenem 500 mg/ Dextrose 100 mls @ 200 mls/hr IVPB Q8H-IV [facility] Insulin Aspart (Novolog Vial Sliding Scale -) 1 vial SQ ACHS [facility]; Protocol Lidocaine HCl (Xylocaine 5% Top. Ointment) 1 applic TP BID [facility] Melatonin (Melatonin) 10 mg PO HS [facility] Methylnaltrexone [place] (Relistor -) 12 mg SQ DAILY [facility] Metoprolol Succinate (Toprol Xl -) 50 mg PO DAILY [facility] Ondansetron HCl (Zofran Injection) 4 mg IVPUSH Q6H PRN PRN Reason: NAUSEA AND/OR VOMITING Oxycodone HCl (Roxicodone -) 30 mg PO Q6H PRN PRN Reason: PAIN LEVEL 7 - 10 Phenazopyridine HCl (Pyridium -) 100 mg PO TID [facility] Polyethylene Glycol (Miralax (For Daily Use) -) 17 gm PO BID [facility] Promethazine HCl (Phenergan Injection -) 12.5 mg IVPB Q6H PRN PRN Reason: NAUSEA-FOR RESCUE AFTER 15 MIN Tamsulosin HCl (Flomax -) 0.4 mg PO DAILY@0830 [facility] - Objective Vital Signs: Vital Signs Temperature 101.9 F H 09/11/19 18:00 Pulse Rate 102 H 09/11/19 18:00 Respiratory Rate 24 H 09/11/19 18:00 Blood Pressure 115/74 09/11/19 18:00 O2 Sat by Pulse Oximetry (%) 95 09/11/19 09:00 Constitutional: Yes: Obese Cardiovascular: Yes: Regular Rate and Rhythm, S1, S2 Respiratory: Yes: CTA Bilaterally Gastrointestinal: Yes: Normal Bowel Sounds, Soft Labs: CBC, BMP 09/11/19 05:30 09/11/19 05:30 INR, PTT INR 2.43 (0.83-1.09) H 09/10/19 08:11 Assessment/Plan GRAM NEGATIVE BACTEREMIA/ SEPSIS AZOTEMIA AWAIT C/S CONTINUE MEROPENEM
[2019-09-11] MEDS: LACTATED RINGERS SOLUTION 1,000 ML/1,000 ML INFUS.BAG IV SCH (22:24)
[2019-09-12] MEDS ORDERED: PT OWN MED DRAWER 7, Y5N ONE ×4 (00:32→21:48)
[2019-09-12] MEDS ORDERED: MEROPENEM 500 MG VIAL (RESTRICTED TO ID) IVPB ONE (01:20)
[2019-09-12] MEDS ORDERED: DEXTROSE 5%-WATER 100 ML IVPB ONE ×2 (01:20→09:41)
[2019-09-12] MEDS ORDERED: MEROPENEM 500 MG in DEXTROSE 5%-WATER 100 ML IVPB SCH (02:00)
[2019-09-12] MEDS: PHENAZOPYRIDINE HCL 100 MG TABLET (FP) PO SCH ×3 (06:02→21:57)
[2019-09-12] MEDS: GABAPENTIN 300 MG CAPSULE PO SCH ×3 (06:02→21:59)
[2019-09-12] MEDS: oxyCODONE HCL 5 MG TABLET PO PRN ×3 (06:02→18:07)
[2019-09-12] MEDS: INSULIN SLIDING SCALE (NOVOLOG) 1 VIAL SQ SCH ×4 (06:03→21:57)
[2019-09-12] MEDS: ACETAMINOPHEN 325 MG TABLET (FP) PO PRN ×3 (06:38→17:16)
[2019-09-12 08:18] LABS: BASO % 0.4 % (0-2.0); EOS % 1.9 % (0-4.5); HEMOGLOBIN 10.2 GM/dL (11.7-16.9); LYMPH % 8.8 % (8-40); MCH 29.5 pg (25.7-33.7); MCHC 32.9 g/dl (32.0-35.9); MEAN CELL VOLUME 89.6 fl (80-96); MEAN PLT VOLUME 7.7 fl (7.5-11.1); MONO % 6.5 % (3.8-10.2); NEUT % 82.4 % (42.8-82.8); PLATELET COUNT 89 K/MM3 (134-434); RBC 3.46 M/mm3 (4.00-5.60); RDW 16.3 % (11.9-15.9); WHITE BLOOD COUNT 8.8 K/mm3 (4.0-10.0)
[2019-09-12 08:35] LABS: ALBUMIN 2.4 g/dl (3.4-5.0); BILIRUBIN,TOTAL 0.8 mg/dL (0.2-1); CALCIUM 7.9 mg/dL (8.5-10.1); CREATININE 1.6 mg/dL (0.55-1.3); MAGNESIUM 1.9 mg/dL (1.8-2.4); PHOSPHOROUS 2.4 mg/dL (2.5-4.9); POTASSIUM 4.1 mmol/L (3.5-5.1); TOT PROT 5.9 g/dl (6.4-8.2)
[2019-09-12] MEDS ORDERED: MEROPENEM 1 GM VIAL (RESTRICTED TO ID) IVPB ONE ×2 (09:41→10:07)
[2019-09-12] MEDS ORDERED: MEROPENEM 1 GM in DEXTROSE 5%-WATER 100 ML IVPB SCH (10:00)
[2019-09-12] MEDS: FINASTERIDE 5 MG TABLET (FP) PO SCH (10:02)
[2019-09-12] MEDS: TAMSULOSIN HCL 0.4 MG CAP PO SCH (10:02)
[2019-09-12] MEDS: CLOPIDOGREL BISULFATE 75 MG TABLET (FP) PO SCH (10:02)
[2019-09-12] MEDS: POLYETHYLENE GLYCOL 3350 119 GM BTL PO SCH ×2 (10:13→21:58)
[2019-09-12] MEDS: LIDOCAINE HCL 5% TOP OINTMENT 50 GM TUBE TP SCH ×2 (10:14→21:57)
[2019-09-12] MEDS: Methylnaltrexone Bromide 12 MG/0.6 ML KIT SQ SCH (10:14)
--- NOTE | 2019-09-12 12:06 | PN ---
Progress Note, Physician History of Present Illness: AWAKE, ALERT IN BED C/O L FLANK PAIN REMAINS FEBRILE WBC IMPROVED BC E COLI - Current Medication List Current Medications: Active Medications Acetaminophen (Tylenol -) 650 mg PO Q6H PRN PRN Reason: FEVER Last Admin: 09/12/19 06:38 Dose: 650 mg Documented by: Al Hydroxide/Mg Hydroxide (Mylanta Oral Suspension -) 30 ml PO Q6H PRN PRN Reason: DYSPEPSIA Atorvastatin Calcium (Lipitor -) 10 mg PO [facility] Last Admin: 09/11/19 21:28 Dose: 10 mg Documented by: Clopidogrel Bisulfate (Plavix -) 75 mg PO DAILY [facility] Last Admin: 09/12/19 10:02 Dose: 75 mg Documented by: Finasteride (Proscar -) 5 mg PO DAILY [facility] Last Admin: 09/12/19 10:02 Dose: 5 mg Documented by: Gabapentin (Neurontin -) 900 mg PO TID [facility] Last Admin: 09/12/19 06:02 Dose: 900 mg Documented by: Lactated Ringer's (Lactated Ringers Solution) 1,000 ml in 1,000 mls @ 100 mls/hr IV ASDIR [facility] Last Admin: 09/11/19 22:24 Dose: 100 mls/hr Documented by: Cefazolin Sodium 1 gm/ (Dextrose) 50 mls @ 100 mls/hr IVPB Q8H-IV [facility] Insulin Aspart (Novolog Vial Sliding Scale -) 1 vial SQ [facility]; Protocol Last Admin: 09/12/19 06:03 Dose: 2 units Documented by: Lidocaine HCl (Xylocaine 5% Top. Ointment) 1 applic TP BID [facility] Last Admin: 09/12/19 10:14 Dose: 1 applic Documented by: Melatonin (Melatonin) 10 mg PO [facility] Last Admin: 09/11/19 21:29 Dose: 10 mg Documented by: Methylnaltrexone [place] (Relistor -) 12 mg SQ DAILY [facility] Last Admin: 09/12/19 10:14 Dose: Not Given Documented by: Metoprolol Succinate (Toprol Xl -) 50 mg PO DAILY [facility] Last Admin: 09/12/19 10:03 Dose: 50 mg Documented by: Ondansetron HCl (Zofran Injection) 4 mg IVPUSH Q6H PRN PRN Reason: NAUSEA AND/OR VOMITING Oxycodone HCl (Roxicodone -) 30 mg PO Q6H PRN PRN Reason: PAIN LEVEL 7 - 10 Last Admin: 09/12/19 06:02 Dose: 30 mg Documented by: Phenazopyridine HCl (Pyridium -) 100 mg PO TID [facility] Last Admin: 09/12/19 06:02 Dose: 100 mg Documented by: Polyethylene Glycol (Miralax (For Daily Use) -) 17 gm PO BID [facility] Last Admin: 09/12/19 10:13 Dose: Not Given Documented by: Promethazine HCl (Phenergan Injection -) 12.5 mg IVPB Q6H PRN PRN Reason: NAUSEA-FOR RESCUE AFTER 15 MIN Tamsulosin HCl (Flomax -) 0.4 mg PO DAILY@0830 [facility] Last Admin: 09/12/19 10:02 Dose: 0.4 mg Documented by: - Objective Vital Signs: Vital Signs Temperature 100.3 F H 09/12/19 08:55 Pulse Rate 99 H 09/12/19 08:55 Respiratory Rate 20 09/12/19 08:55 Blood Pressure 106/65 09/12/19 08:55 O2 Sat by Pulse Oximetry (%) 97 09/12/19 08:55 Constitutional: Yes: No Distress, Obese Cardiovascular: Yes: Regular Rate and Rhythm, S1, S2 Respiratory: Yes: CTA Bilaterally, Diminished Gastrointestinal: Yes: Normal Bowel Sounds, Soft. No: Tenderness Genitourinary: Yes: CVA Tenderness - Left Edema: Yes Labs: CBC, BMP 09/12/19 07:10 09/12/19 07:10 INR, PTT INR 2.43 (0.83-1.09) H 09/10/19 08:11 Assessment/Plan GRAM NEGATIVE BACTEREMIA/ SEPSIS SECONDARY TO SOURCE NEPHROLITHIASIS S/P CSYTO/ STENT LEUKOCYTOSIS THROMBOCYTOPENIA SECONDARY TO SEPSIS AZOTEMIA LACTIC ACIDOSIS SUBSTITUTE CEFAZOLIN, ADJUSTED FOR AZOTEMIA
--- NOTE | 2019-09-12 12:35 | PN ---
Progress Note, Physician - Current Medication List Current Medications: Active Medications Acetaminophen (Tylenol -) 650 mg PO Q6H PRN PRN Reason: FEVER Last Admin: 09/12/19 06:38 Dose: 650 mg Documented by: Al Hydroxide/Mg Hydroxide (Mylanta Oral Suspension -) 30 ml PO Q6H PRN PRN Reason: DYSPEPSIA Atorvastatin Calcium (Lipitor -) 10 mg PO [facility] Last Admin: 09/11/19 21:28 Dose: 10 mg Documented by: Clopidogrel Bisulfate (Plavix -) 75 mg PO DAILY [facility] Last Admin: 09/12/19 10:02 Dose: 75 mg Documented by: Finasteride (Proscar -) 5 mg PO DAILY [facility] Last Admin: 09/12/19 10:02 Dose: 5 mg Documented by: Gabapentin (Neurontin -) 900 mg PO TID [facility] Last Admin: 09/12/19 06:02 Dose: 900 mg Documented by: Lactated Ringer's (Lactated Ringers Solution) 1,000 ml in 1,000 mls @ 100 mls/hr IV ASDIR [facility] Last Admin: 09/11/19 22:24 Dose: 100 mls/hr Documented by: Cefazolin Sodium 1 gm/ (Dextrose) 50 mls @ 100 mls/hr IVPB Q8H-IV [facility] Insulin Aspart (Novolog Vial Sliding Scale -) 1 vial SQ ACHS [facility]; Protocol Last Admin: 09/12/19 06:03 Dose: 2 units Documented by: Lidocaine HCl (Xylocaine 5% Top. Ointment) 1 applic TP BID [facility] Last Admin: 09/12/19 10:14 Dose: 1 applic Documented by: Melatonin (Melatonin) 10 mg PO [facility] Last Admin: 09/11/19 21:29 Dose: 10 mg Documented by: Methylnaltrexone [place] (Relistor -) 12 mg SQ DAILY [facility] Last Admin: 09/12/19 10:14 Dose: Not Given Documented by: Metoprolol Succinate (Toprol Xl -) 50 mg PO DAILY [facility] Last Admin: 09/12/19 10:03 Dose: 50 mg Documented by: Ondansetron HCl (Zofran Injection) 4 mg IVPUSH Q6H PRN PRN Reason: NAUSEA AND/OR VOMITING Oxycodone HCl (Roxicodone -) 30 mg PO Q6H PRN PRN Reason: PAIN LEVEL 7 - 10 Last Admin: 09/12/19 12:04 Dose: 30 mg Documented by: Phenazopyridine HCl (Pyridium -) 100 mg PO TID [facility] Last Admin: 09/12/19 06:02 Dose: 100 mg Documented by: Polyethylene Glycol (Miralax (For Daily Use) -) 17 gm PO BID [facility] Last Admin: 09/12/19 10:13 Dose: Not Given Documented by: Promethazine HCl (Phenergan Injection -) 12.5 mg IVPB Q6H PRN PRN Reason: NAUSEA-FOR RESCUE AFTER 15 MIN Tamsulosin HCl (Flomax -) 0.4 mg PO DAILY@0830 [facility] Last Admin: 09/12/19 10:02 Dose: 0.4 mg Documented by: - Objective Vital Signs: Vital Signs Temperature 100.3 F H 09/12/19 08:55 Pulse Rate 99 H 09/12/19 08:55 Respiratory Rate 20 09/12/19 08:55 Blood Pressure 106/65 09/12/19 08:55 O2 Sat by Pulse Oximetry (%) 97 09/12/19 08:55 Cardiovascular: Yes: S1, S2 Respiratory: Yes: Regular, CTA Bilaterally Gastrointestinal: Yes: Normal Bowel Sounds, Soft. No: Tenderness Labs: CBC, BMP 09/12/19 07:10 09/12/19 07:10 INR, PTT INR 2.43 (0.83-1.09) H 09/10/19 08:11 Problem List - Problems (1) Sepsis Assessment/Plan: IV ABX ID ON BOARD ICU MONITORING Microbiology 09/09/19 21:30 Blood - Peripheral Venous Blood Culture - Final Escherichia Coli 09/09/19 21:30 Blood - Peripheral Venous Blood Culture - Final Escherichia Coli 09/09/19 21:30 Urine - Urine - Catheterized Urine Culture - Final Escherichia Coli Code(s): A41.9 - SEPSIS, UNSPECIFIED ORGANISM Qualifiers: Sepsis type: sepsis due to unspecified organism Qualified Code(s): A41.9 - Sepsis, unspecified organism (2) UTI (urinary tract infection) Assessment/Plan: ABOVE Microbiology 09/09/19 21:30 Blood - Peripheral Venous Blood Culture - Final Escherichia Coli 09/09/19 21:30 Blood - Peripheral Venous Blood Culture - Final Escherichia Coli 09/09/19 21:30 Urine - Urine - Catheterized Urine Culture - Final Escherichia Coli Code(s): N39.0 - URINARY TRACT INFECTION, SITE NOT SPECIFIED (3) Atrial fibrillation with RVR Assessment/Plan: RESUME B-BLOCKERS Code(s): I48.91 - UNSPECIFIED ATRIAL FIBRILLATION (4) CHF (congestive heart failure) Code(s): I50.9 - HEART FAILURE, UNSPECIFIED (5) COPD (chronic obstructive pulmonary disease) Code(s): J44.9 - CHRONIC OBSTRUCTIVE PULMONARY DISEASE, UNSPECIFIED (6) Diabetes Assessment/Plan: BGM Code(s): E11.9 - TYPE 2 DIABETES MELLITUS WITHOUT COMPLICATIONS Qualifiers: Diabetes mellitus type: type 2 (7) HTN (hypertension) Code(s): I10 - ESSENTIAL (PRIMARY) HYPERTENSION (8) Obstructive nephropathy Assessment/Plan: Operative Date: 09/10/19 Pre-Operative Diagnosis: left ureteral stone with high grade obstruction; gram negative sepsis; acute renal injury Operation: cystoscopy/left retrograde pyelogram/left ureteroscopic stone manipulation and stent placement. Findings: high grade hydronephrosis with obstructing 1+ ureteral stone Post-Operative Diagnosis: Same as Pre-op Surgeon: Tyrell Little Code(s): N13.8 - OTHER OBSTRUCTIVE AND REFLUX UROPATHY
[2019-09-12] MEDS ORDERED: ceFAZolin SODIUM 1 GM VIAL ONE ×2 (14:41→18:02)
[2019-09-12] MEDS ORDERED: DEXTROSE 5%-WATER - 50 ML IVPB ONE ×2 (14:41→18:02)
[2019-09-12] MEDS: CEFAZOLIN 1 GM in DEXTROSE 5%-WATER - 50 ML IVPB SCH ×2 (14:43→18:08)
[2019-09-12] MEDS: LACTATED RINGERS SOLUTION 1,000 ML/1,000 ML INFUS.BAG IV SCH (14:44)
--- NOTE | 2019-09-12 15:28 | PN ---
Progress Note (short form) - Note Progress Note: RENAL Pt is awake and alert comfortable Last Vital Signs Temp Pulse Resp BP Pulse Ox 101.1 F H 95 H 22 H 122/71 97 09/12/19 14:05 09/12/19 14:05 09/12/19 14:05 09/12/19 14:05 09/12/19 09:00 lungs clear cvs s1s2 rr abd soft ext +edema edema neuro a+ox3 CBC, BMP 09/12/19 07:10 09/12/19 07:10 Current Medications Generic Name Dose Route Start Last Admin Trade Name Freq PRN Reason Stop Dose Admin Acetaminophen 650 mg 09/12/19 14:50 Tylenol - PO Q4H PRN FEVER Al Hydroxide/Mg Hydroxide 30 ml 09/11/19 20:40 Mylanta Oral Suspension - PO Q6H PRN DYSPEPSIA Atorvastatin Calcium 10 mg 09/11/19 22:00 09/11/19 21:28 Lipitor - PO 10 mg HS [facility] Administration Clopidogrel Bisulfate 75 mg 09/12/19 10:00 09/12/19 10:02 Plavix - PO 75 mg DAILY [facility] Administration Finasteride 5 mg 09/12/19 10:00 09/12/19 10:02 Proscar - PO 5 mg DAILY [facility] Administration Gabapentin 900 mg 09/11/19 22:00 09/12/19 14:43 Neurontin - PO 900 mg TID [facility] Administration Lactated Ringer's 1,000 ml in 1,000 mls @ 100 mls/hr 09/11/19 20:40 09/12/19 14:44 Lactated Ringers Solution IV 100 mls/hr ASDIR [facility] Administration Cefazolin Sodium 1 gm/ 50 mls @ 100 mls/hr 09/12/19 12:15 09/12/19 14:43 Dextrose IVPB 100 mls/hr Q8H-IV [facility] Administration Insulin Aspart 1 vial 09/11/19 22:00 09/12/19 12:40 Novolog Vial Sliding Scale - SQ 2 units ACHS [facility] Administration Protocol Lidocaine HCl 1 applic 09/11/19 22:00 09/12/19 10:14 Xylocaine 5% Top. Ointment TP 1 applic BID [facility] Administration Melatonin 10 mg 09/11/19 22:00 09/11/19 21:29 Melatonin PO 10 mg HS [facility] Administration Methylnaltrexone [place] 12 mg 09/12/19 10:00 09/12/19 10:14 Relistor - SQ Not Given DAILY [facility] Metoprolol Succinate 50 mg 09/12/19 22:00 Toprol Xl - PO BID [facility] Ondansetron HCl 4 mg 09/11/19 20:40 Zofran Injection IVPUSH Q6H PRN NAUSEA AND/OR VOMITING Oxycodone HCl 30 mg 09/11/19 20:40 09/12/19 12:04 Roxicodone - PO 30 mg Q6H PRN Administration PAIN LEVEL 7 - 10 Phenazopyridine HCl 100 mg 09/11/19 22:00 09/12/19 14:43 Pyridium - PO 100 mg TID [facility] Administration Polyethylene Glycol 17 gm 09/11/19 22:00 09/12/19 10:13 Miralax (For Daily Use) - PO Not Given BID [facility] Promethazine HCl 12.5 mg 09/11/19 20:40 Phenergan Injection - IVPB Q6H PRN NAUSEA-FOR RESCUE AFTER 15 MIN Tamsulosin HCl 0.4 mg 09/12/19 08:30 09/12/19 10:02 Flomax - PO 0.4 mg DAILY@0830 [facility] Administration Impression 1. JANETT 2. lactic acidosis 3. sepsis 4. chf 5. hld 6. hx htn 7. nephrolithiasis 8. shock 9. hydronephrosis 10. obesity 11. copd Plan renal function has improved yet he is edematous. Would therefore dc fluids and observe MV
[2019-09-12] MEDS: ATORVASTATIN CA 10 MG TABLET (FP) PO SCH (21:57)
[2019-09-12] MEDS: MELATONIN 5 MG TABLETS PO SCH (21:57)
[2019-09-13] MEDS: oxyCODONE HCL 5 MG TABLET PO PRN ×4 (00:05→18:48)
[2019-09-13] MEDS ORDERED: ceFAZolin SODIUM 1 GM VIAL ONE ×4 (01:39→17:36)
[2019-09-13] MEDS ORDERED: DEXTROSE 5%-WATER - 50 ML IVPB ONE ×3 (01:39→17:36)
[2019-09-13] MEDS: CEFAZOLIN 1 GM in DEXTROSE 5%-WATER - 50 ML IVPB SCH ×3 (01:42→17:40)
[2019-09-13] MEDS: INSULIN SLIDING SCALE (NOVOLOG) 1 VIAL SQ SCH ×4 (06:06→21:02)
[2019-09-13] MEDS: PHENAZOPYRIDINE HCL 100 MG TABLET (FP) PO SCH ×3 (06:06→21:02)
[2019-09-13] MEDS: GABAPENTIN 300 MG CAPSULE PO SCH ×3 (06:06→21:02)
--- NOTE | 2019-09-13 09:02 | PN ---
Progress Note, Physician - Current Medication List Current Medications: Active Medications Acetaminophen (Tylenol -) 650 mg PO Q4H PRN PRN Reason: FEVER Last Admin: 09/12/19 17:16 Dose: 650 mg Documented by: Al Hydroxide/Mg Hydroxide (Mylanta Oral Suspension -) 30 ml PO Q6H PRN PRN Reason: DYSPEPSIA Atorvastatin Calcium (Lipitor -) 10 mg PO [facility] Last Admin: 09/12/19 21:57 Dose: 10 mg Documented by: Clopidogrel Bisulfate (Plavix -) 75 mg PO DAILY [facility] Last Admin: 09/12/19 10:02 Dose: 75 mg Documented by: Finasteride (Proscar -) 5 mg PO DAILY [facility] Last Admin: 09/12/19 10:02 Dose: 5 mg Documented by: Gabapentin (Neurontin -) 900 mg PO TID [facility] Last Admin: 09/13/19 06:06 Dose: 900 mg Documented by: Cefazolin Sodium 1 gm/ (Dextrose) 50 mls @ 100 mls/hr IVPB Q8H-IV [facility] Last Admin: 09/13/19 01:42 Dose: 100 mls/hr Documented by: Insulin Aspart (Novolog Vial Sliding Scale -) 1 vial SQ [facility]; Protocol Last Admin: 09/13/19 06:06 Dose: 2 units Documented by: Lidocaine HCl (Xylocaine 5% Top. Ointment) 1 applic TP BID [facility] Last Admin: 09/12/19 21:57 Dose: 1 applic Documented by: Melatonin (Melatonin) 10 mg PO [facility] Last Admin: 09/12/19 21:57 Dose: 10 mg Documented by: Methylnaltrexone [place] (Relistor -) 12 mg SQ DAILY [facility] Last Admin: 09/12/19 10:14 Dose: Not Given Documented by: Metoprolol Succinate (Toprol Xl -) 50 mg PO BID [facility] Last Admin: 09/12/19 21:57 Dose: 50 mg Documented by: Ondansetron HCl (Zofran Injection) 4 mg IVPUSH Q6H PRN PRN Reason: NAUSEA AND/OR VOMITING Oxycodone HCl (Roxicodone -) 30 mg PO Q6H PRN PRN Reason: PAIN LEVEL 7 - 10 Last Admin: 09/13/19 06:07 Dose: 30 mg Documented by: Phenazopyridine HCl (Pyridium -) 100 mg PO TID [facility] Last Admin: 09/13/19 06:06 Dose: 100 mg Documented by: Polyethylene Glycol (Miralax (For Daily Use) -) 17 gm PO BID [facility] Last Admin: 09/12/19 21:58 Dose: Not Given Documented by: Promethazine HCl (Phenergan Injection -) 12.5 mg IVPB Q6H PRN PRN Reason: NAUSEA-FOR RESCUE AFTER 15 MIN Tamsulosin HCl (Flomax -) 0.4 mg PO DAILY@0830 [facility] Last Admin: 09/12/19 10:02 Dose: 0.4 mg Documented by: - Objective Vital Signs: Vital Signs Temperature 99.8 F H 09/13/19 06:00 Pulse Rate 83 09/13/19 06:00 Respiratory Rate 20 09/13/19 06:00 Blood Pressure 119/77 09/13/19 06:00 O2 Sat by Pulse Oximetry (%) 96 09/12/19 21:00 Cardiovascular: Yes: Regular Rate and Rhythm Respiratory: Yes: Regular, CTA Bilaterally Gastrointestinal: Yes: Normal Bowel Sounds, Soft. No: Tenderness Genitourinary: Yes: Vasques Present Labs: CBC, BMP 09/12/19 07:10 09/12/19 07:10 INR, PTT INR 2.43 (0.83-1.09) H 09/10/19 08:11 Problem List - Problems (1) Sepsis Assessment/Plan: IV ABX ID ON BOARD ICU MONITORING Microbiology 09/09/19 21:30 Blood - Peripheral Venous Blood Culture - Final Escherichia Coli 09/09/19 21:30 Blood - Peripheral Venous Blood Culture - Final Escherichia Coli 09/09/19 21:30 Urine - Urine - Catheterized Urine Culture - Final Escherichia Coli Code(s): A41.9 - SEPSIS, UNSPECIFIED ORGANISM Qualifiers: Sepsis type: sepsis due to unspecified organism Qualified Code(s): A41.9 - Sepsis, unspecified organism (2) UTI (urinary tract infection) Assessment/Plan: ABOVE Microbiology 09/09/19 21:30 Blood - Peripheral Venous Blood Culture - Final Escherichia Coli 09/09/19 21:30 Blood - Peripheral Venous Blood Culture - Final Escherichia Coli 09/09/19 21:30 Urine - Urine - Catheterized Urine Culture - Final Escherichia Coli Code(s): N39.0 - URINARY TRACT INFECTION, SITE NOT SPECIFIED (3) Atrial fibrillation with RVR Assessment/Plan: RESUME B-BLOCKERS Code(s): I48.91 - UNSPECIFIED ATRIAL FIBRILLATION (4) CHF (congestive heart failure) Code(s): I50.9 - HEART FAILURE, UNSPECIFIED (5) COPD (chronic obstructive pulmonary disease) Code(s): J44.9 - CHRONIC OBSTRUCTIVE PULMONARY DISEASE, UNSPECIFIED (6) Diabetes Assessment/Plan: BGM Code(s): E11.9 - TYPE 2 DIABETES MELLITUS WITHOUT COMPLICATIONS Qualifiers: Diabetes mellitus type: type 2 (7) HTN (hypertension) Code(s): I10 - ESSENTIAL (PRIMARY) HYPERTENSION (8) Obstructive nephropathy Assessment/Plan: Operative Date: 09/10/19 Pre-Operative Diagnosis: left ureteral stone with high grade obstruction; gram negative sepsis; acute renal injury Operation: cystoscopy/left retrograde pyelogram/left ureteroscopic stone manipulation and stent placement. Findings: high grade hydronephrosis with obstructing 1+ ureteral stone Post-Operative Diagnosis: Same as Pre-op Surgeon: Tyrell Little Code(s): N13.8 - OTHER OBSTRUCTIVE AND REFLUX UROPATHY
[2019-09-13] MEDS: CLOPIDOGREL BISULFATE 75 MG TABLET (FP) PO SCH (09:23)
[2019-09-13] MEDS: FINASTERIDE 5 MG TABLET (FP) PO SCH (09:23)
[2019-09-13] MEDS: TAMSULOSIN HCL 0.4 MG CAP PO SCH (09:24)
[2019-09-13] MEDS: ACETAMINOPHEN 325 MG TABLET (FP) PO PRN (09:24)
[2019-09-13] MEDS: LIDOCAINE HCL 5% TOP OINTMENT 50 GM TUBE TP SCH ×2 (09:25→21:04)
[2019-09-13] MEDS: POLYETHYLENE GLYCOL 3350 119 GM BTL PO SCH ×2 (09:25→21:03)
--- NOTE | 2019-09-13 09:38 | CONS ---
INFECTIOUS DISEASE CONSULTATION DATE OF CONSULTATION: DATE OF DICTATION: 09/12/2019 HISTORY: The patient is a 64-year-old male with multiple comorbidities evaluated for gram-negative sepsis. The patient was admitted to the hospital on September 09, 2019, after having fever at home. According to the notes, he had been having fevers for the past 3 days at home prior to admission. He presented to the emergency room where he was noted to have fever of 103. He was tachycardic with a heart rate of 156. His course was complicated by rapid atrial fibrillation. Urine analysis showed many white cells. He has a history of nephrolithiasis. Imaging revealed a left ureteral stone. The patient underwent a cystoscopy with left retrograde pyelogram and stone manipulation on September 10, 2019. His course was complicated by hypotension requiring transfer to the intensive care unit. He was treated for possible septic shock. Blood cultures were positive for gram-negative rods. He was empirically treated with vancomycin and Zosyn. Presently patient is awake but lethargic. He offers no focal complaint. PAST MEDICAL HISTORY: Positive for nephrolithiasis, morbid obesity, hypertension, hyperlipidemia, congestive heart failure, atrial fibrillation, coronary artery disease, history of intracranial hemorrhage, COPD, atrial fibrillation, myocardial infarction, BPH, cirrhosis, hepatitis C. PAST SURGICAL HISTORY: Status post ureteral stent, lobectomy and craniotomy. ALLERGIES: To PENICILLIN. Patient reports rash. SYSTEMS REVIEW: Neurologic: No loss of consciousness, seizure activity, focal weakness. Cardiac: Negative chest pain or palpitations. Respiratory: Negative cough or sputum production. Gastrointestinal: Negative vomiting or diarrhea. Genitourinary: As per HPI. LABORATORY DATA: White count 13.6, creatinine 1.9, lactic acid 3.2. Urine analysis 360 white cells. COVID-19 negative. Blood cultures gram-negative rods. PHYSICAL EXAMINATION: General: He is awake. He is morbidly obese. He is in no acute distress. Vital Signs: Temperature 99, blood pressure 85/46, pulse 105 regular, respirations 20 per minute. HEENT: Sclerae are anicteric. Heart: Sounds S1, S2. Lungs: Clear bilaterally. Abdomen: Obese, soft, nontender. No suprapubic or flank tenderness. Extremities: Positive for edema. IMPRESSION: 1. Gram-negative bacteremia/sepsis likely secondary to genitourinary source. 2. Nephrolithiasis/obstructive uropathy. 3. Azotemia. 4. Lactic acidosis. 5. Rapid atrial fibrillation. 6. Thrombocytopenia likely secondary to sepsis. Pending identification of blood isolate, empiric antibiotic coverage with meropenem. Continue hemodynamic and supportive measures, ICU monitoring. Prognosis guarded. Critical care time spent 35 minutes. Thank you for the kind referral. MELISSA GIRON M.D. GLORIA/[id number]
[2019-09-13] MEDS ORDERED: PT OWN MED DRAWER 7, Y5N ONE ×3 (10:29→20:57)
[2019-09-13] MEDS: Methylnaltrexone Bromide 12 MG/0.6 ML KIT SQ SCH (10:34)
--- NOTE | 2019-09-13 11:56 | CON.CARD ---
Cardiology Consult (text) - Consultation Consultation Note: Chief Complaint: fever History of Present Illness: 64M with chronic AF , s/p PPM at [facility], CAD s/p PCI, remote hx intracranial bleed after a fall many years ago s/p evacuation at [facility] presents to ER with fever for few days. No cp sob palps dizzy loc pnd orthopnea. Found to have uti/kidney stone, now s/p cysto/stenting. - History Source History Provided By: Patient - Past Medical History CENTER MEDICAL DIRECTOR: Yes: Other (craniotomy s/p evacuation [facility] on keppra ) Cardio/Vascular: Yes: AFIB, CAD (prior PCI, last 12/2016 at [place], [facility]), CHF (chronic primarily diastolic), HTN, Other Pulmonary: Yes: COPD Gastrointestinal: Yes: Other (6 years earlier -negative EGD and colonoscopy) Hepatobiliary: Yes: Cirrhosis, Hepatitis C, Other (patient does not admit to cirrhosis (normal liver on ct scan does have splenomegaly)) Renal/: Yes: BPH, Renal Calculi Psych: Yes: Anxiety, Depression Musculoskeletal: Yes: Chronic low back pain, Osteoarthritis Endocrine: Yes: Diabetes Mellitus - Past Surgical History Past Surgical History: Yes: Colonoscopy, Upper Endoscopy - Alcohol/Substance Use Hx Alcohol Use: No History of Substance Use: reports: None - Smoking History Smoking history: Former smoker Have you smoked in the past 12 months: No Aproximately how many cigarettes per day: 0 If you are a former smoker, when did you quit?: 25 years - Social History Usual Living Arrangement: With Child ADL: Family Assistance Occupation: worked in [employer] with exposures History of Recent Travel: No Home Medications - Allergies Allergies/Adverse Reactions: Allergies Allergy/AdvReac Type Severity Reaction Status Date / Time vancomycin AdvReac Mild Itching Verified 09/09/19 20:34 Home Medications Medication Instructions Recorded Digoxin [Lanoxin -] 0.125 mg PO DAILY 07/20/17 Insulin Detemir [Levemir Flextouch] 10 unit SQ ACBK #1 insuln.pen MDD 1 07/29/17 Melatonin 5 mg PO HS PRN tab 07/29/17 Finasteride [Proscar -] 5 mg PO DAILY 09/05/17 Lisinopril [Zestril] 2.5 mg PO DAILY 09/05/17 Simvastatin 20 mg PO DAILY 06/29/18 Phenazopyridine HCl [Pyridium -] 100 mg PO TID #90 tablet 03/26/18 Clopidogrel Bisulfate [Plavix -] 75 mg PO DAILY tablet 04/19/19 Digoxin [Lanoxin -] 0.25 mg PO DAILY tablet 04/19/19 Docusate Sodium [Colace -] 300 mg PO HS capsule 04/19/19 Gabapentin [Neurontin -] 900 mg PO TID capsule 04/19/19 Insulin Sliding Scale [Novolog 1 vial SQ ACHS units 04/19/19 Vial Sliding Scale -] Lidocaine 5% Top. Ointment 1 applic TP BID tube 04/19/19 [Xylocaine 5% Top. Ointment -] Lidocaine Patch Removal [Lidoderm 1 each [facility] DAILY@2200 each 04/19/19 Patch Removal] Mag Hydrox/Al Hydrox/Simeth 30 ml PO Q6H PRN cup 04/19/19 [Mylanta Oral Suspension -] Melatonin 10 mg PO HS tab 04/19/19 Methylnaltrexone [place] [Relistor 12 mg SQ DAILY kit 04/19/19 -] Metoprolol Succinate [Toprol XL -] 50 mg PO DAILY tab.sr.24h 04/19/19 Polyethylene Glycol 3350 [Miralax 17 gm PO BID bottle 04/19/19 119 gm Btl -] Rivaroxaban [Xarelto -] 20 mg PO DAILY@1800 tablet 04/19/19 Tamsulosin HCl [Flomax -] 0.4 mg PO DAILY@0830 cap.er.24h 04/19/19 levETIRAcetam [Levetiracetam -] 750 mg PO DAILY tab.er.24h 04/19/19 oxyCODONE HCL [Roxicodone -] 30 mg PO Q6H PRN tablet MDD 4 04/19/19 Family Medical History Family History: Unremarkable Review of Systems - Review of Systems per hpi, all others nl - Risk Factors Known Risk Factors: Yes: Hypertension, Physical Inactivity, Prior ID /Emb Stroke Vital Signs: Vital Signs Period Temp Pulse Resp BP Sys/Mixon Pulse Ox Last 24 Hr 98.4 F-101.1 F 83-96 20-22 102-122/58-77 95-99 Constitutional: Yes: No Distress, Calm Respiratory: Yes: CTA Bilaterally nl eff Gastrointestinal: Yes: Soft, Abdomen, Obese Cardiovascular: Yes: Pulse Irregular Heart Sounds: Yes: S1, S2 (iireg) Edema: LLE: 1+, RLE: 1+ Neurological: Yes: Alert, Oriented no jaundice diaphoresis - Other Data Labs, Other Data: Laboratory Last Values WBC 8.8 K/mm3 (4.0-10.0) 09/12/19 07:10 RBC 3.46 M/mm3 (4.00-5.60) L 09/12/19 07:10 Hgb 10.2 GM/dL (11.7-16.9) L 09/12/19 07:10 Hct 31.0 % (35.4-49) L 09/12/19 07:10 MCV 89.6 fl (80-96) 09/12/19 07:10 MCH 29.5 pg (25.7-33.7) 09/12/19 07:10 MCHC 32.9 g/dl (32.0-35.9) 09/12/19 07:10 RDW 16.3 % (11.9-15.9) H 09/12/19 07:10 Plt Count 89 K/MM3 (134-434) L 09/12/19 07:10 MPV 7.7 fl (7.5-11.1) 09/12/19 07:10 Absolute Neuts (auto) 7.2 K/mm3 (1.5-8.0) 09/12/19 07:10 Neutrophils % 82.4 % (42.8-82.8) 09/12/19 07:10 Neutrophils % (Manual) 80.4 % (42.8-82.8) 09/10/19 08:11 Band Neutrophils % 13.4 % 09/10/19 08:11 Lymphocytes % 8.8 % (8-40) 09/12/19 07:10 Lymphocytes % (Manual) 4.1 % (8-40) L 09/10/19 08:11 Monocytes % 6.5 % (3.8-10.2) 09/12/19 07:10 Monocytes % (Manual) 2 % (3.8-10.2) L 09/10/19 08:11 Eosinophils % 1.9 % (0-4.5) D 09/12/19 07:10 Eosinophils % (Manual) 0.0 % (0-4.5) 09/10/19 08:11 Basophils % 0.4 % (0-2.0) 09/12/19 07:10 Basophils % (Manual) 0.0 % (0-2.0) 09/10/19 08:11 Myelocytes % (Man) 0 % (0-2) 09/10/19 08:11 Promyelocytes % (Man) 0 % (0-2) 09/10/19 08:11 Blast Cells % (Manual) 0 % (0-0) 09/10/19 08:11 Nucleated RBC % 0 % (0-0) 09/12/19 07:10 Metamyelocytes 0 % (0-2) 09/10/19 08:11 Hypochromia 0 09/10/19 08:11 Platelet Estimate Normal 09/10/19 08:11 Polychromasia 1+ 09/10/19 08:11 Poikilocytosis 0 09/10/19 08:11 Anisocytosis 0 09/10/19 08:11 Microcytosis 1+ 09/10/19 08:11 Macrocytosis 1+ 09/10/19 08:11 PT with INR 28.90 SEC (9.7-13.0) H 09/10/19 08:11 INR 2.43 (0.83-1.09) H 09/10/19 08:11 PTT (Actin FS) 38.3 SECONDS (25.2-36.5) H 09/10/19 08:11 Sodium 135 mmol/L (136-145) L 09/12/19 07:10 Potassium 4.1 mmol/L (3.5-5.1) 09/12/19 07:10 Chloride 103 mmol/L (98-107) 09/12/19 07:10 Carbon Dioxide 22 mmol/L (21-32) 09/12/19 07:10 Anion Gap 9 MMOL/L (8-16) 09/12/19 07:10 BUN 27.0 mg/dL (7-18) H 09/12/19 07:10 Creatinine 1.6 mg/dL (0.55-1.3) H 09/12/19 07:10 Est GFR (CKD-EPI)AfAm 51.99 09/12/19 07:10 Est GFR (CKD-EPI)NonAf 44.86 09/12/19 07:10 POC Glucometer 192 UNITS (80-120) 09/12/19 21:54 Random Glucose 170 mg/dL (74-106) H 09/12/19 07:10 Lactic Acid 1.7 mmol/L (0.4-2.0) 09/12/19 11:56 Calcium 7.9 mg/dL (8.5-10.1) L 09/12/19 07:10 Phosphorus 2.4 mg/dL (2.5-4.9) L 09/12/19 07:10 Magnesium 1.9 mg/dL (1.8-2.4) 09/12/19 07:10 Total Bilirubin 0.8 mg/dL (0.2-1) 09/12/19 07:10 AST 31 U/L (15-37) 09/12/19 07:10 ALT 22 U/L (13-61) 09/12/19 07:10 Alkaline Phosphatase 70 U/L (45-117) 09/12/19 07:10 Creatine Kinase 122 U/L (26-308) 09/09/19 21:30 Troponin I < 0.02 ng/ml (0.00-0.05) 09/09/19 21:30 Total Protein 5.9 g/dl (6.4-8.2) L 09/12/19 07:10 Albumin 2.4 g/dl (3.4-5.0) L 09/12/19 07:10 Urine Color Yellow 09/09/19 21:30 Urine Appearance Cloudy 09/09/19 21:30 Urine pH 6.0 (5.0-8.0) 09/09/19 21:30 Ur Specific [place] 1.016 (1.010-1.035) 09/09/19 21:30 Urine Protein Negative (NEGATIVE) 09/09/19 21:30 Urine Glucose (UA) Negative (NEGATIVE) 09/09/19 21:30 Urine Ketones Negative (NEGATIVE) 09/09/19 21:30 Urine Blood Trace (NEGATIVE) 09/09/19 21:30 Urine Nitrite Negative (NEGATIVE) 09/09/19 21:30 Urine Bilirubin Negative (NEGATIVE) 09/09/19 21:30 Urine Urobilinogen 1.0 mg/dL (0.2-1.0) 09/09/19 21:30 Ur Leukocyte Esterase 2+ (NEGATIVE) H 09/09/19 21:30 Urine WBC (Auto) 360 /uL (0-25.8) 09/09/19 21:30 Urine RBC (Auto) 30 /uL (0-23.9) 09/09/19 21:30 Urine Casts (Auto) 1 /uL (0-3.1) 09/09/19 21:30 U Epithel Cells (Auto) 3 /uL (0-25.1) 09/09/19 21:30 Urine Bacteria (Auto) >10,000 /uL (0-1359) 09/09/19 21:30 COVID-19 ([facility]) Not detected (Not Detected) 09/09/19 23:30 Blood Type O POSITIVE 09/10/19 10:00 Antibody Screen Negative 09/10/19 10:00 Echo 04/29: nl LVSF. RV tds. mild TR. mildly dilated ascending aorta tele: afib, rate controlled cxr: clear lungs ecg: afib 127, nl intervals, nonspec st changes a/p: 64M with chronic AF , s/p PPM at [facility], CAD s/p PCI, remote hx intracranial bleed after a fall many years ago s/p evacuation at [facility] presents to ER with fever afib: -rate controlled, cont home toprol and dig (level ok here) -resume xarelto when possible cad, remote pci: -stable, no signs acs -cont bb, statin, plavix ppm: -outpt f/u uti, chrystal: -Found to have uti/kidney stone, now s/p cysto/stenting. -cr improving
[2019-09-13 12:47] LABS: BASO % 0.6 % (0-2.0); EOS % 2.8 % (0-4.5); HEMATOCRIT 30.8 % (35.4-49); HEMOGLOBIN 10.3 GM/dL (11.7-16.9); LYMPH % 14.7 % (8-40); MCH 30.2 pg (25.7-33.7); MCHC 33.2 g/dl (32.0-35.9); MEAN CELL VOLUME 90.9 fl (80-96); MEAN PLT VOLUME 8.2 fl (7.5-11.1); MONO % 11.6 % (3.8-10.2); NEUT % 70.3 % (42.8-82.8); PLATELET COUNT 91 K/MM3 (134-434); RBC 3.39 M/mm3 (4.00-5.60); RDW 15.9 % (11.9-15.9)
[2019-09-13 13:20] LABS: ALBUMIN 2.4 g/dl (3.4-5.0); BILIRUBIN,TOTAL 0.9 mg/dL (0.2-1); BLOOD UREA NITROGEN 21.3 mg/dL (7-18); CALCIUM 7.8 mg/dL (8.5-10.1); CREATININE 1.3 mg/dL (0.55-1.3); POTASSIUM 4.3 mmol/L (3.5-5.1)
[2019-09-13 13:46] LABS: ANISOCYTOSIS 0; MACROCYTOSIS 0; PLATELET ESTIMATE DECREASED
--- NOTE | 2019-09-13 13:59 | PN ---
Progress Note, Physician History of Present Illness: Pt seen and examined at bedside. He is awake and alert. He denies shortness of breath. - Current Medication List Current Medications: Active Medications Acetaminophen (Tylenol -) 650 mg PO Q4H PRN PRN Reason: FEVER Last Admin: 09/13/19 09:24 Dose: 650 mg Documented by: Al Hydroxide/Mg Hydroxide (Mylanta Oral Suspension -) 30 ml PO Q6H PRN PRN Reason: DYSPEPSIA Atorvastatin Calcium (Lipitor -) [address] [facility] Last Admin: 09/12/19 21:57 Dose: 10 mg Documented by: Clopidogrel Bisulfate (Plavix -) 75 mg PO DAILY [facility] Last Admin: 09/13/19 09:23 Dose: 75 mg Documented by: Digoxin (Lanoxin -) 0.25 mg PO DAILY [facility] Finasteride (Proscar -) 5 mg PO DAILY [facility] Last Admin: 09/13/19 09:23 Dose: 5 mg Documented by: Gabapentin (Neurontin -) 900 mg PO TID [facility] Last Admin: 09/13/19 13:36 Dose: 900 mg Documented by: Cefazolin Sodium 1 gm/ (Dextrose) 50 mls @ 100 mls/hr IVPB Q8H-IV [facility] Last Admin: 09/13/19 10:34 Dose: 100 mls/hr Documented by: Insulin Aspart (Novolog Vial Sliding Scale -) 1 vial SQ ACHS [facility]; Protocol Last Admin: 09/13/19 12:08 Dose: 4 units Documented by: Lidocaine HCl (Xylocaine 5% Top. Ointment) 1 applic TP BID [facility] Last Admin: 09/13/19 09:25 Dose: 1 applic Documented by: Melatonin (Melatonin) 10 [address] [facility] Last Admin: 09/12/19 21:57 Dose: 10 mg Documented by: Methylnaltrexone [place] (Relistor -) 12 mg SQ DAILY [facility] Last Admin: 09/13/19 10:34 Dose: Not Given Documented by: Metoprolol Succinate (Toprol Xl -) 50 mg PO BID [facility] Last Admin: 09/13/19 09:24 Dose: 50 mg Documented by: Ondansetron HCl (Zofran Injection) 4 mg IVPUSH Q6H PRN PRN Reason: NAUSEA AND/OR VOMITING Oxycodone HCl (Roxicodone -) 30 mg PO Q6H PRN PRN Reason: PAIN LEVEL 7 - 10 Last Admin: 09/13/19 12:09 Dose: 30 mg Documented by: Phenazopyridine HCl (Pyridium -) 100 mg PO TID [facility] Last Admin: 09/13/19 13:36 Dose: 100 mg Documented by: Polyethylene Glycol (Miralax (For Daily Use) -) 17 gm PO BID [facility] Last Admin: 09/13/19 09:25 Dose: Not Given Documented by: Promethazine HCl (Phenergan Injection -) 12.5 mg IVPB Q6H PRN PRN Reason: NAUSEA-FOR RESCUE AFTER 15 MIN Tamsulosin HCl (Flomax -) 0.4 mg PO DAILY@0830 [facility] Last Admin: 09/13/19 09:24 Dose: 0.4 mg Documented by: - Objective Vital Signs: Vital Signs Temperature 99 F 09/13/19 10:00 Pulse Rate 93 H 09/13/19 08:00 Respiratory Rate 20 09/13/19 08:00 Blood Pressure 119/75 09/13/19 08:00 O2 Sat by Pulse Oximetry (%) 95 09/13/19 09:00 Constitutional: Yes: Calm Eyes: Yes: Conjunctiva Clear HENT: Yes: Atraumatic Neck: Yes: Supple Cardiovascular: Yes: S1, S2 Respiratory: Yes: CTA Bilaterally Gastrointestinal: Yes: Soft, Abdomen, Obese Genitourinary: Yes: Vasques Present Musculoskeletal: Yes: WNL Edema: Yes Edema: LLE: Trace, RLE: Trace Neurological: Yes: Oriented Psychiatric: Yes: Oriented Labs: CBC, BMP 09/13/19 11:44 09/13/19 11:44 INR, PTT INR 2.43 (0.83-1.09) H 09/10/19 08:11 Problem List - Problems (1) JANETT (acute kidney injury) Code(s): N17.9 - ACUTE KIDNEY FAILURE, UNSPECIFIED (2) CHF (congestive heart failure) Code(s): I50.9 - HEART FAILURE, UNSPECIFIED (3) COPD (chronic obstructive pulmonary disease) Code(s): J44.9 - CHRONIC OBSTRUCTIVE PULMONARY DISEASE, UNSPECIFIED (4) Lactic acidosis Code(s): E87.2 - ACIDOSIS Assessment/Plan Current Medications Generic Name Dose Route Start Last Admin Trade Name Freq PRN Reason Stop Dose Admin Acetaminophen 650 mg 09/12/19 14:50 09/13/19 09:24 Tylenol - PO 650 mg Q4H PRN Administration FEVER Al Hydroxide/Mg Hydroxide 30 ml 09/11/19 20:40 Mylanta Oral Suspension - PO Q6H PRN DYSPEPSIA Atorvastatin Calcium 10 mg 09/11/19 22:00 09/12/19 21:57 Lipitor - PO 10 mg HS [facility] Administration Clopidogrel Bisulfate 75 mg 09/12/19 10:00 09/13/19 09:23 Plavix - PO 75 mg DAILY [facility] Administration Digoxin 0.25 mg 09/14/19 10:00 Lanoxin - PO DAILY [facility] Finasteride 5 mg 09/12/19 10:00 09/13/19 09:23 Proscar - PO 5 mg DAILY [facility] Administration Gabapentin 900 mg 09/11/19 22:00 09/13/19 13:36 Neurontin - PO 900 mg TID [facility] Administration Cefazolin Sodium 1 gm/ 50 mls @ 100 mls/hr 09/12/19 12:15 09/13/19 10:34 Dextrose IVPB 100 mls/hr Q8H-IV [facility] Administration Insulin Aspart 1 vial 09/11/19 22:00 09/13/19 12:08 Novolog Vial Sliding Scale - SQ 4 units ACHS [facility] Administration Protocol Lidocaine HCl 1 applic 09/11/19 22:00 09/13/19 09:25 Xylocaine 5% Top. Ointment TP 1 applic BID [facility] Administration Melatonin 10 mg 09/11/19 22:00 09/12/19 21:57 Melatonin PO 10 mg HS [facility] Administration Methylnaltrexone [place] 12 mg 09/12/19 10:00 09/13/19 10:34 Relistor - SQ Not Given DAILY [facility] Metoprolol Succinate 50 mg 09/12/19 22:00 09/13/19 09:24 Toprol Xl - PO 50 mg BID [facility] Administration Ondansetron HCl 4 mg 09/11/19 20:40 Zofran Injection IVPUSH Q6H PRN NAUSEA AND/OR VOMITING Oxycodone HCl 30 mg 09/11/19 20:40 09/13/19 12:09 Roxicodone - PO 30 mg Q6H PRN Administration PAIN LEVEL 7 - 10 Phenazopyridine HCl 100 mg 09/11/19 22:00 09/13/19 13:36 Pyridium - PO 100 mg TID [facility] Administration Polyethylene Glycol 17 gm 09/11/19 22:00 09/13/19 09:25 Miralax (For Daily Use) - PO Not Given BID [facility] Promethazine HCl 12.5 mg 09/11/19 20:40 Phenergan Injection - IVPB Q6H PRN NAUSEA-FOR RESCUE AFTER 15 MIN Tamsulosin HCl 0.4 mg 09/12/19 08:30 09/13/19 09:24 Flomax - PO 0.4 mg DAILY@0830 [facility] Administration Laboratory Tests 11/16/18 04/15/19 04/16/19 19:28 19:50 11:20 Creatinine 1.1 1.2 1.0 Lactic Acid Urine Protein Urine Blood Urine Bacteria (Auto) COVID-19 ([facility]) 09/09/19 09/09/19 09/09/19 21:30 21:30 21:30 Creatinine 1.4 H Lactic Acid 3.6 H* Urine Protein Negative Urine Blood Trace Urine Bacteria (Auto) >10,000 COVID-19 ([facility]) 09/09/19 09/10/19 09/10/19 23:30 08:11 08:11 Creatinine 1.8 H Lactic Acid 5.5 H* Urine Protein Urine Blood Urine Bacteria (Auto) COVID-19 ([facility]) Pending 09/12/19 11:56 Creatinine Lactic Acid 1.7 Urine Protein Urine Blood Urine Bacteria (Auto) COVID-19 ([facility]) Impression 1. JANETT 2. lactic acidosis 3. sepsis 4. chf 5. hld 6. hx htn 7. nephrolithiasis 8. shock 9. hydronephrosis 10. obesity 11. copd Plan - renal function is improving - can observe off of fluids - pt is tolerating diet - bp is improved - lactic acid is improved - urology follow up
[2019-09-13] MEDS: MELATONIN 5 MG TABLETS PO SCH (21:02)
[2019-09-13] MEDS: ATORVASTATIN CA 10 MG TABLET (FP) PO SCH (21:02)
--- NOTE | 2019-09-13 21:49 | PN ---
Progress Note, Physician History of Present Illness: AWAKE, ALERT IN BED REPORTS LESS L FLANK PAIN TEMPS DOWN LEUKOCYTOSIS IMPROVED WNL AZOTEMIA IMPROVED BC E COLI - Current Medication List Current Medications: Active Medications Acetaminophen (Tylenol -) 650 mg PO Q4H PRN PRN Reason: FEVER Last Admin: 09/13/19 09:24 Dose: 650 mg Documented by: Al Hydroxide/Mg Hydroxide (Mylanta Oral Suspension -) 30 ml PO Q6H PRN PRN Reason: DYSPEPSIA Atorvastatin Calcium (Lipitor -) [address] [facility] Last Admin: 09/13/19 21:02 Dose: 10 mg Documented by: Clopidogrel Bisulfate (Plavix -) [address] [facility] Last Admin: 09/13/19 09:23 Dose: 75 mg Documented by: Digoxin (Lanoxin -) 0.[address] [facility] Finasteride (Proscar -) [address] [facility] Last Admin: 09/13/19 09:23 Dose: 5 mg Documented by: Gabapentin (Neurontin -) [address] [facility] Last Admin: 09/13/19 21:02 Dose: 900 mg Documented by: Cefazolin Sodium 1 gm/ (Dextrose) 50 mls @ 100 mls/hr IVPB Q8H-IV [facility] Last Admin: 09/13/19 17:40 Dose: 100 mls/hr Documented by: Insulin Aspart (Novolog Vial Sliding Scale -) [address] [facility]; Protocol Last Admin: 09/13/19 21:02 Dose: 4 units Documented by: Lidocaine HCl (Xylocaine 5% Top. Ointment) [address] [facility] Last Admin: 09/13/19 21:04 Dose: 1 applic Documented by: Melatonin (Melatonin) 10 mg PO [facility] Last Admin: 09/13/19 21:02 Dose: 10 mg Documented by: Methylnaltrexone [place] (Relistor -) [address] [facility] Last Admin: 09/13/19 10:34 Dose: Not Given Documented by: Metoprolol Succinate (Toprol Xl -) [address] [facility] Last Admin: 09/13/19 21:02 Dose: 50 mg Documented by: Ondansetron HCl (Zofran Injection) 4 mg IVPUSH Q6H PRN PRN Reason: NAUSEA AND/OR VOMITING Oxycodone HCl (Roxicodone -) 30 mg PO Q6H PRN PRN Reason: PAIN LEVEL 7 - 10 Last Admin: 09/13/19 18:48 Dose: 30 mg Documented by: Phenazopyridine HCl (Pyridium -) [address] [facility] Last Admin: 09/13/19 21:02 Dose: 100 mg Documented by: Polyethylene Glycol (Miralax (For Daily Use) -) [address] [facility] Last Admin: 09/13/19 21:03 Dose: Not Given Documented by: Promethazine HCl (Phenergan Injection -) 12.5 mg IVPB Q6H PRN PRN Reason: NAUSEA-FOR RESCUE AFTER 15 MIN Tamsulosin HCl (Flomax -) 0.4 mg PO DAILY@0830 [facility] Last Admin: 09/13/19 09:24 Dose: 0.4 mg Documented by: - Objective Vital Signs: Vital Signs Temperature 98.1 F 09/13/19 21:00 Pulse Rate 101 H 09/13/19 21:00 Respiratory Rate 20 09/13/19 21:00 Blood Pressure 117/80 09/13/19 21:00 O2 Sat by Pulse Oximetry (%) 100 09/13/19 21:00 Constitutional: Yes: No Distress, Obese Cardiovascular: Yes: Regular Rate and Rhythm, S1, S2 Respiratory: Yes: CTA Bilaterally Gastrointestinal: Yes: Normal Bowel Sounds, Soft Edema: Yes Labs: CBC, BMP 09/13/19 11:44 09/13/19 11:44 INR, PTT INR 2.43 (0.83-1.09) H 09/10/19 08:11 Assessment/Plan GRAM NEGATIVE BACTEREMIA/ SEPSIS E COLI LEUKOCYTOSIS IMPROVED AZOTEMIA IMPROVED CONTINUE CEFAZOLIN
[2019-09-14] MEDS ORDERED: ceFAZolin SODIUM 1 GM VIAL ONE ×3 (01:16→18:26)
[2019-09-14] MEDS ORDERED: DEXTROSE 5%-WATER - 50 ML IVPB ONE ×3 (01:17→18:27)
[2019-09-14] MEDS: CEFAZOLIN 1 GM in DEXTROSE 5%-WATER - 50 ML IVPB SCH ×3 (01:19→18:38)
[2019-09-14] MEDS: oxyCODONE HCL 5 MG TABLET PO PRN ×4 (01:29→20:55)
[2019-09-14] MEDS: PHENAZOPYRIDINE HCL 100 MG TABLET (FP) PO SCH ×3 (06:11→21:09)
[2019-09-14] MEDS: GABAPENTIN 300 MG CAPSULE PO SCH ×3 (06:11→21:02)
[2019-09-14] MEDS: INSULIN SLIDING SCALE (NOVOLOG) 1 VIAL SQ SCH ×4 (06:12→21:01)
[2019-09-14 07:19] LABS: ALBUMIN 2.4 g/dl (3.4-5.0); BILIRUBIN,TOTAL 0.8 mg/dL (0.2-1); BLOOD UREA NITROGEN 19.4 mg/dL (7-18); CALCIUM 8.1 mg/dL (8.5-10.1); CREATININE 1.2 mg/dL (0.55-1.3); POTASSIUM 4.2 mmol/L (3.5-5.1); TOT PROT 6.6 g/dl (6.4-8.2)
[2019-09-14] MEDS: TAMSULOSIN HCL 0.4 MG CAP PO SCH (08:24)
--- NOTE | 2019-09-14 09:05 | PN ---
Progress Note, Physician - Current Medication List Current Medications: Active Medications Acetaminophen (Tylenol -) 650 mg PO Q4H PRN PRN Reason: FEVER Last Admin: 09/13/19 09:24 Dose: 650 mg Documented by: Al Hydroxide/Mg Hydroxide (Mylanta Oral Suspension -) 30 ml PO Q6H PRN PRN Reason: DYSPEPSIA Atorvastatin Calcium (Lipitor -) 10 mg PO [facility] Last Admin: 09/13/19 21:02 Dose: 10 mg Documented by: Clopidogrel Bisulfate (Plavix -) 75 mg PO DAILY [facility] Last Admin: 09/13/19 09:23 Dose: 75 mg Documented by: Digoxin (Lanoxin -) 0.25 mg PO DAILY [facility] Finasteride (Proscar -) 5 mg PO DAILY [facility] Last Admin: 09/13/19 09:23 Dose: 5 mg Documented by: Gabapentin (Neurontin -) 900 mg PO TID [facility] Last Admin: 09/14/19 06:11 Dose: 900 mg Documented by: Cefazolin Sodium 1 gm/ (Dextrose) 50 mls @ 100 mls/hr IVPB Q8H-IV [facility] Last Admin: 09/14/19 01:19 Dose: 100 mls/hr Documented by: Insulin Aspart (Novolog Vial Sliding Scale -) 1 vial SQ [facility]; Protocol Last Admin: 09/14/19 06:12 Dose: 4 units Documented by: Lidocaine HCl (Xylocaine 5% Top. Ointment) 1 applic TP BID [facility] Last Admin: 09/13/19 21:04 Dose: 1 applic Documented by: Melatonin (Melatonin) 10 mg PO [facility] Last Admin: 09/13/19 21:02 Dose: 10 mg Documented by: Methylnaltrexone [place] (Relistor -) 12 mg SQ DAILY [facility] Last Admin: 09/13/19 10:34 Dose: Not Given Documented by: Metoprolol Succinate (Toprol Xl -) 50 mg PO BID [facility] Last Admin: 09/13/19 21:02 Dose: 50 mg Documented by: Ondansetron HCl (Zofran Injection) 4 mg IVPUSH Q6H PRN PRN Reason: NAUSEA AND/OR VOMITING Oxycodone HCl (Roxicodone -) 30 mg PO Q6H PRN PRN Reason: PAIN LEVEL 7 - 10 Last Admin: 09/14/19 08:24 Dose: 30 mg Documented by: Phenazopyridine HCl (Pyridium -) 100 mg PO TID [facility] Last Admin: 09/14/19 06:11 Dose: 100 mg Documented by: Polyethylene Glycol (Miralax (For Daily Use) -) 17 gm PO BID [facility] Last Admin: 09/13/19 21:03 Dose: Not Given Documented by: Promethazine HCl (Phenergan Injection -) 12.5 mg IVPB Q6H PRN PRN Reason: NAUSEA-FOR RESCUE AFTER 15 MIN Tamsulosin HCl (Flomax -) 0.4 mg PO DAILY@0830 [facility] Last Admin: 09/14/19 08:24 Dose: 0.4 mg Documented by: - Objective Vital Signs: Vital Signs Temperature 98.7 F 09/14/19 05:00 Pulse Rate 78 09/14/19 05:00 Respiratory Rate 20 09/14/19 05:00 Blood Pressure 123/68 09/14/19 05:00 O2 Sat by Pulse Oximetry (%) 100 09/13/19 21:00 Cardiovascular: Yes: Regular Rate and Rhythm Respiratory: Yes: Regular, CTA Bilaterally Gastrointestinal: Yes: Normal Bowel Sounds, Soft. No: Tenderness Edema: No Labs: CBC, BMP 09/13/19 11:44 09/14/19 05:42 INR, PTT INR 2.43 (0.83-1.09) H 09/10/19 08:11 Problem List - Problems (1) Sepsis Assessment/Plan: IV ABX ID ON BOARD ICU MONITORING Microbiology 09/09/19 21:30 Blood - Peripheral Venous Blood Culture - Final Escherichia Coli 09/09/19 21:30 Blood - Peripheral Venous Blood Culture - Final Escherichia Coli 09/09/19 21:30 Urine - Urine - Catheterized Urine Culture - Final Escherichia Coli Code(s): A41.9 - SEPSIS, UNSPECIFIED ORGANISM Qualifiers: Sepsis type: sepsis due to unspecified organism Qualified Code(s): A41.9 - Sepsis, unspecified organism (2) UTI (urinary tract infection) Assessment/Plan: ABOVE Microbiology 09/09/19 21:30 Blood - Peripheral Venous Blood Culture - Final Escherichia Coli 09/09/19 21:30 Blood - Peripheral Venous Blood Culture - Final Escherichia Coli 09/09/19 21:30 Urine - Urine - Catheterized Urine Culture - Final Escherichia Coli Code(s): N39.0 - URINARY TRACT INFECTION, SITE NOT SPECIFIED (3) Atrial fibrillation with RVR Assessment/Plan: Improved rate controlled ON B-BLOCKERS resume xarelto Code(s): I48.91 - UNSPECIFIED ATRIAL FIBRILLATION (4) CHF (congestive heart failure) Code(s): I50.9 - HEART FAILURE, UNSPECIFIED (5) COPD (chronic obstructive pulmonary disease) Assessment/Plan: stable Code(s): J44.9 - CHRONIC OBSTRUCTIVE PULMONARY DISEASE, UNSPECIFIED (6) Diabetes Assessment/Plan: BGM Code(s): E11.9 - TYPE 2 DIABETES MELLITUS WITHOUT COMPLICATIONS Qualifiers: Diabetes mellitus type: type 2 (7) HTN (hypertension) Assessment/Plan: Vital Signs Period Temp Pulse Resp BP Sys/Mixon Pulse Ox Last 24 Hr 98.1 F-99.1 F 78-101 20-20 110-131/58-90 100 Code(s): I10 - ESSENTIAL (PRIMARY) HYPERTENSION (8) Obstructive nephropathy Assessment/Plan: Operative Date: 09/10/19 Pre-Operative Diagnosis: left ureteral stone with high grade obstruction; gram negative sepsis; acute renal injury Operation: cystoscopy/left retrograde pyelogram/left ureteroscopic stone manipulation and stent placement. Findings: high grade hydronephrosis with obstructing 1+ ureteral stone Post-Operative Diagnosis: Same as Pre-op Surgeon: Tyrell Little Code(s): N13.8 - OTHER OBSTRUCTIVE AND REFLUX UROPATHY
[2019-09-14] MEDS: DIGOXIN 0.25 MG TABLET (FP) PO SCH (10:05)
[2019-09-14] MEDS: FINASTERIDE 5 MG TABLET (FP) PO SCH (10:06)
[2019-09-14] MEDS: CLOPIDOGREL BISULFATE 75 MG TABLET (FP) PO SCH (10:06)
[2019-09-14] MEDS: LIDOCAINE HCL 5% TOP OINTMENT 50 GM TUBE TP SCH ×2 (10:06→21:01)
[2019-09-14] MEDS: ACETAMINOPHEN 325 MG TABLET (FP) PO PRN ×2 (10:07→21:24)
[2019-09-14] MEDS: POLYETHYLENE GLYCOL 3350 119 GM BTL PO SCH ×2 (10:07→21:08)
[2019-09-14] MEDS: Methylnaltrexone Bromide 12 MG/0.6 ML KIT SQ SCH (10:07)
--- NOTE | 2019-09-14 12:43 | PN ---
Progress Note (short form) - Note Progress Note: s: no chest pain, palps, dizziness, dyspnea Current Medications Generic Name Dose Route Start Last Admin Trade Name Freq PRN Reason Stop Dose Admin Acetaminophen 650 mg 09/12/19 14:50 09/14/19 10:07 Tylenol - PO 650 mg Q4H PRN Administration FEVER Al Hydroxide/Mg Hydroxide 30 ml 09/11/19 20:40 Mylanta Oral Suspension - PO Q6H PRN DYSPEPSIA Atorvastatin Calcium 10 mg 09/11/19 22:00 09/13/19 21:02 Lipitor - PO 10 mg HS [facility] Administration Clopidogrel Bisulfate 75 mg 09/12/19 10:00 09/14/19 10:06 Plavix - PO 75 mg DAILY [facility] Administration Digoxin 0.25 mg 09/14/19 10:00 09/14/19 10:05 Lanoxin - PO 0.25 mg DAILY [facility] Administration Finasteride 5 mg 09/12/19 10:00 09/14/19 10:06 Proscar - PO 5 mg DAILY [facility] Administration Gabapentin 900 mg 09/11/19 22:00 09/14/19 06:11 Neurontin - PO 900 mg TID [facility] Administration Cefazolin Sodium 1 gm/ 50 mls @ 100 mls/hr 09/12/19 12:15 09/14/19 10:05 Dextrose IVPB 100 mls/hr Q8H-IV [facility] Administration Insulin Aspart 1 vial 09/11/19 22:00 09/14/19 12:33 Novolog Vial Sliding Scale - SQ 4 units ACHS [facility] Administration Protocol Lidocaine HCl 1 applic 09/11/19 22:00 09/14/19 10:06 Xylocaine 5% Top. Ointment TP 1 applic BID [facility] Administration Melatonin 10 mg 09/11/19 22:00 09/13/19 21:02 Melatonin PO 10 mg HS [facility] Administration Methylnaltrexone [place] 12 mg 09/12/19 10:00 09/14/19 10:07 Relistor - SQ Not Given DAILY [facility] Metoprolol Succinate 50 mg 09/12/19 22:00 09/14/19 10:06 Toprol Xl - PO 50 mg BID [facility] Administration Ondansetron HCl 4 mg 09/11/19 20:40 Zofran Injection IVPUSH Q6H PRN NAUSEA AND/OR VOMITING Oxycodone HCl 30 mg 09/11/19 20:40 09/14/19 08:24 Roxicodone - PO 30 mg Q6H PRN Administration PAIN LEVEL 7 - 10 Phenazopyridine HCl 100 mg 09/11/19 22:00 09/14/19 06:11 Pyridium - PO 100 mg TID [facility] Administration Polyethylene Glycol 17 gm 09/11/19 22:00 09/14/19 10:07 Miralax (For Daily Use) - PO Not Given BID [facility] Promethazine HCl 12.5 mg 09/11/19 20:40 Phenergan Injection - IVPB Q6H PRN NAUSEA-FOR RESCUE AFTER 15 MIN Rivaroxaban 20 mg 09/14/19 18:00 Xarelto PO DAILY@1800 [facility] Tamsulosin HCl 0.4 mg 09/12/19 08:30 09/14/19 08:24 Flomax - PO 0.4 mg DAILY@0830 [facility] Administration Vital Signs Period Temp Pulse Resp BP Sys/Mixon Pulse Ox Last 24 Hr 98.1 F-99.1 F 78-101 20-20 110-131/58-90 100 Constitutional: Yes: No Distress, Calm Respiratory: Yes: CTA Bilaterally nl eff Gastrointestinal: Yes: Soft, Abdomen, Obese Cardiovascular: Yes: Pulse Irregular Heart Sounds: Yes: S1, S2 (iireg) Edema: LLE: 1+, RLE: 1+ Neurological: Yes: Alert, Oriented no jaundice diaphoresis - Other Data Labs, Other Data: Laboratory Last Values WBC 8.8 K/mm3 (4.0-10.0) 09/12/19 07:10 RBC 3.46 M/mm3 (4.00-5.60) L 09/12/19 07:10 Hgb 10.2 GM/dL (11.7-16.9) L 09/12/19 07:10 Hct 31.0 % (35.4-49) L 09/12/19 07:10 MCV 89.6 fl (80-96) 09/12/19 07:10 MCH 29.5 pg (25.7-33.7) 09/12/19 07:10 MCHC 32.9 g/dl (32.0-35.9) 09/12/19 07:10 RDW 16.3 % (11.9-15.9) H 09/12/19 07:10 Plt Count 89 K/MM3 (134-434) L 09/12/19 07:10 MPV 7.7 fl (7.5-11.1) 09/12/19 07:10 Absolute Neuts (auto) 7.2 K/mm3 (1.5-8.0) 09/12/19 07:10 Neutrophils % 82.4 % (42.8-82.8) 09/12/19 07:10 Neutrophils % (Manual) 80.4 % (42.8-82.8) 09/10/19 08:11 Band Neutrophils % 13.4 % 09/10/19 08:11 Lymphocytes % 8.8 % (8-40) 09/12/19 07:10 Lymphocytes % (Manual) 4.1 % (8-40) L 09/10/19 08:11 Monocytes % 6.5 % (3.8-10.2) 09/12/19 07:10 Monocytes % (Manual) 2 % (3.8-10.2) L 09/10/19 08:11 Eosinophils % 1.9 % (0-4.5) D 09/12/19 07:10 Eosinophils % (Manual) 0.0 % (0-4.5) 09/10/19 08:11 Basophils % 0.4 % (0-2.0) 09/12/19 07:10 Basophils % (Manual) 0.0 % (0-2.0) 09/10/19 08:11 Myelocytes % (Man) 0 % (0-2) 09/10/19 08:11 Promyelocytes % (Man) 0 % (0-2) 09/10/19 08:11 Blast Cells % (Manual) 0 % (0-0) 09/10/19 08:11 Nucleated RBC % 0 % (0-0) 09/12/19 07:10 Metamyelocytes 0 % (0-2) 09/10/19 08:11 Hypochromia 0 09/10/19 08:11 Platelet Estimate Normal 09/10/19 08:11 Polychromasia 1+ 09/10/19 08:11 Poikilocytosis 0 09/10/19 08:11 Anisocytosis 0 09/10/19 08:11 Microcytosis 1+ 09/10/19 08:11 Macrocytosis 1+ 09/10/19 08:11 PT with INR 28.90 SEC (9.7-13.0) H 09/10/19 08:11 INR 2.43 (0.83-1.09) H 09/10/19 08:11 PTT (Actin FS) 38.3 SECONDS (25.2-36.5) H 09/10/19 08:11 Sodium 135 mmol/L (136-145) L 09/12/19 07:10 Potassium 4.1 mmol/L (3.5-5.1) 09/12/19 07:10 Chloride 103 mmol/L (98-107) 09/12/19 07:10 Carbon Dioxide 22 mmol/L (21-32) 09/12/19 07:10 Anion Gap 9 MMOL/L (8-16) 09/12/19 07:10 BUN 27.0 mg/dL (7-18) H 09/12/19 07:10 Creatinine 1.6 mg/dL (0.55-1.3) H 09/12/19 07:10 Est GFR (CKD-EPI)AfAm 51.99 09/12/19 07:10 Est GFR (CKD-EPI)NonAf 44.86 09/12/19 07:10 POC Glucometer 192 UNITS (80-120) 09/12/19 21:54 Random Glucose 170 mg/dL (74-106) H 09/12/19 07:10 Lactic Acid 1.7 mmol/L (0.4-2.0) 09/12/19 11:56 Calcium 7.9 mg/dL (8.5-10.1) L 09/12/19 07:10 Phosphorus 2.4 mg/dL (2.5-4.9) L 09/12/19 07:10 Magnesium 1.9 mg/dL (1.8-2.4) 09/12/19 07:10 Total Bilirubin 0.8 mg/dL (0.2-1) 09/12/19 07:10 AST 31 U/L (15-37) 09/12/19 07:10 ALT 22 U/L (13-61) 09/12/19 07:10 Alkaline Phosphatase 70 U/L (45-117) 09/12/19 07:10 Creatine Kinase 122 U/L (26-308) 09/09/19 21:30 Troponin I < 0.02 ng/ml (0.00-0.05) 09/09/19 21:30 Total Protein 5.9 g/dl (6.4-8.2) L 09/12/19 07:10 Albumin 2.4 g/dl (3.4-5.0) L 09/12/19 07:10 Urine Color Yellow 09/09/19 21:30 Urine Appearance Cloudy 09/09/19 21:30 Urine pH 6.0 (5.0-8.0) 09/09/19 21:30 Ur Specific [place] 1.016 (1.010-1.035) 09/09/19 21:30 Urine Protein Negative (NEGATIVE) 09/09/19 21: Urine Glucose (UA) Negative (NEGATIVE) 09/09/19 21: Urine Ketones Negative (NEGATIVE) 09/09/19 21: Urine Blood Trace (NEGATIVE) 09/09/19 21: Urine Nitrite Negative (NEGATIVE) 09/09/19 21: Urine Bilirubin Negative (NEGATIVE) 09/09/19 21: Urine Urobilinogen 1.0 mg/dL (0.2-1.0) 09/09/19 21:30 Ur Leukocyte Esterase 2+ (NEGATIVE) H 09/09/19 21:30 Urine WBC (Auto) 360 /uL (0-25.8) 09/09/19 21:30 Urine RBC (Auto) 30 /uL (0-23.9) 09/09/19 21:30 Urine Casts (Auto) 1 /uL (0-3.1) 09/09/19 21:30 U Epithel Cells (Auto) 3 /uL (0-25.1) 09/09/19 21:30 Urine Bacteria (Auto) >10,000 /uL (0-1359) 09/09/19 21:30 COVID-19 (DINA) Not detected (Not Detected) 09/09/19 23:30 Blood Type O POSITIVE 09/10/19 10:00 Antibody Screen Negative 09/10/19 10:00 Echo 04/29: nl LVSF. RV tds. mild TR. mildly dilated ascending aorta tele: afib, rate controlled cxr: clear lungs ecg: afib 127, nl intervals, nonspec st changes a/p: 64M with chronic AF , s/p PPM at [facility], CAD s/p PCI, remote hx intracranial bleed after a fall many years ago s/p evacuation at [facility] presents to ER with fever afib: -rate controlled, cont home toprol and dig (level ok here) -xarelto resumed cad, remote pci: -stable, no signs acs -cont bb, statin, plavix ppm: -outpt f/u uti, chrystal: -Found to have uti/kidney stone, now s/p cysto/stenting. -cr improving
[2019-09-14] MEDS ORDERED: PT OWN MED DRAWER 7, Y5N ONE ×4 (14:51→21:08)
--- NOTE | 2019-09-14 15:54 | PN ---
Progress Note, Physician History of Present Illness: Pt seen and examined at bedside. He is awake and alert. He did have a fever. - Current Medication List Current Medications: Active Medications Acetaminophen (Tylenol -) 650 mg PO Q4H PRN PRN Reason: FEVER Last Admin: 09/14/19 10:07 Dose: 650 mg Documented by: Al Hydroxide/Mg Hydroxide (Mylanta Oral Suspension -) 30 ml PO Q6H PRN PRN Reason: DYSPEPSIA Atorvastatin Calcium (Lipitor -) 10 mg PO [facility] Last Admin: 09/13/19 21:02 Dose: 10 mg Documented by: Clopidogrel Bisulfate (Plavix -) 75 mg PO DAILY [facility] Last Admin: 09/14/19 10:06 Dose: 75 mg Documented by: Digoxin (Lanoxin -) 0.25 mg PO DAILY [facility] Last Admin: 09/14/19 10:05 Dose: 0.25 mg Documented by: Finasteride (Proscar -) 5 mg PO DAILY [facility] Last Admin: 09/14/19 10:06 Dose: 5 mg Documented by: Gabapentin (Neurontin -) 900 mg PO TID [facility] Last Admin: 09/14/19 14:53 Dose: 900 mg Documented by: Cefazolin Sodium 1 gm/ (Dextrose) 50 mls @ 100 mls/hr IVPB Q8H-IV [facility] Last Admin: 09/14/19 10:05 Dose: 100 mls/hr Documented by: Insulin Aspart (Novolog Vial Sliding Scale -) 1 vial SQ ACHS [facility]; Protocol Last Admin: 09/14/19 12:33 Dose: 4 units Documented by: Lidocaine HCl (Xylocaine 5% Top. Ointment) 1 applic TP BID [facility] Last Admin: 09/14/19 10:06 Dose: 1 applic Documented by: Melatonin (Melatonin) 10 mg PO [facility] Last Admin: 09/13/19 21:02 Dose: 10 mg Documented by: Methylnaltrexone [place] (Relistor -) 12 mg SQ DAILY [facility] Last Admin: 09/14/19 10:07 Dose: Not Given Documented by: Metoprolol Succinate (Toprol Xl -) 50 mg PO BID [facility] Last Admin: 09/14/19 10:06 Dose: 50 mg Documented by: Ondansetron HCl (Zofran Injection) 4 mg IVPUSH Q6H PRN PRN Reason: NAUSEA AND/OR VOMITING Oxycodone HCl (Roxicodone -) 30 mg PO Q6H PRN PRN Reason: PAIN LEVEL 7 - 10 Last Admin: 09/14/19 14:53 Dose: 30 mg Documented by: Phenazopyridine HCl (Pyridium -) 100 mg PO TID [facility] Last Admin: 09/14/19 14:53 Dose: 100 mg Documented by: Polyethylene Glycol (Miralax (For Daily Use) -) 17 gm PO BID [facility] Last Admin: 09/14/19 10:07 Dose: Not Given Documented by: Promethazine HCl (Phenergan Injection -) 12.5 mg IVPB Q6H PRN PRN Reason: NAUSEA-FOR RESCUE AFTER 15 MIN Rivaroxaban (Xarelto) 20 mg PO DAILY@1800 [facility] Tamsulosin HCl (Flomax -) 0.4 mg PO DAILY@0830 [facility] Last Admin: 09/14/19 08:24 Dose: 0.4 mg Documented by: - Objective Vital Signs: Vital Signs Temperature 102 F H 09/14/19 09:00 Pulse Rate 90 09/14/19 10:05 Respiratory Rate 20 09/14/19 09:00 Blood Pressure 116/71 09/14/19 09:00 O2 Sat by Pulse Oximetry (%) 99 09/14/19 09:00 Constitutional: Yes: Calm Eyes: Yes: Conjunctiva Clear HENT: Yes: Atraumatic Neck: Yes: Supple Cardiovascular: Yes: S1, S2 Respiratory: Yes: CTA Bilaterally Gastrointestinal: Yes: Normal Bowel Sounds, Soft Genitourinary: Yes: WNL Musculoskeletal: Yes: WNL Edema: LLE: Trace, RLE: Trace Neurological: Yes: Oriented Psychiatric: Yes: Oriented Labs: CBC, BMP 09/13/19 11:44 09/14/19 05:42 INR, PTT INR 2.43 (0.83-1.09) H 09/10/19 08:11 Problem List - Problems (1) JANETT (acute kidney injury) Code(s): N17.9 - ACUTE KIDNEY FAILURE, UNSPECIFIED (2) CHF (congestive heart failure) Code(s): I50.9 - HEART FAILURE, UNSPECIFIED (3) COPD (chronic obstructive pulmonary disease) Code(s): J44.9 - CHRONIC OBSTRUCTIVE PULMONARY DISEASE, UNSPECIFIED (4) Lactic acidosis Code(s): E87.2 - ACIDOSIS Assessment/Plan Current Medications Generic Name Dose Route Start Last Admin Trade Name Freq PRN Reason Stop Dose Admin Acetaminophen 650 mg 09/12/19 14:50 09/14/19 10:07 Tylenol - PO 650 mg Q4H PRN Administration FEVER Al Hydroxide/Mg Hydroxide 30 ml 09/11/19 20:40 Mylanta Oral Suspension - PO Q6H PRN DYSPEPSIA Atorvastatin Calcium 10 mg 09/11/19 22:00 09/13/19 21:02 Lipitor - PO 10 mg HS [facility] Administration Clopidogrel Bisulfate 75 mg 09/12/19 10:00 09/14/19 10:06 Plavix - PO 75 mg DAILY [facility] Administration Digoxin 0.25 mg 09/14/19 10:00 09/14/19 10:05 Lanoxin - PO 0.25 mg DAILY [facility] Administration Finasteride 5 mg 09/12/19 10:00 09/14/19 10:06 Proscar - PO 5 mg DAILY [facility] Administration Gabapentin 900 mg 09/11/19 22:00 09/14/19 14:53 Neurontin - PO 900 mg TID [facility] Administration Cefazolin Sodium 1 gm/ 50 mls @ 100 mls/hr 09/12/19 12:15 09/14/19 10:05 Dextrose IVPB 100 mls/hr Q8H-IV [facility] Administration Insulin Aspart 1 vial 09/11/19 22:00 09/14/19 12:33 Novolog Vial Sliding Scale - SQ 4 units ACHS [facility] Administration Protocol Lidocaine HCl 1 applic 09/11/19 22:00 09/14/19 10:06 Xylocaine 5% Top. Ointment TP 1 applic BID [facility] Administration Melatonin 10 mg 09/11/19 22:00 09/13/19 21:02 Melatonin PO 10 mg HS [facility] Administration Methylnaltrexone [place] 12 mg 09/12/19 10:00 09/14/19 10:07 Relistor - SQ Not Given DAILY [facility] Metoprolol Succinate 50 mg 09/12/19 22:00 09/14/19 10:06 Toprol Xl - PO 50 mg BID [facility] Administration Ondansetron HCl 4 mg 09/11/19 20:40 Zofran Injection IVPUSH Q6H PRN NAUSEA AND/OR VOMITING Oxycodone HCl 30 mg 09/11/19 20:40 09/14/19 14:53 Roxicodone - PO 30 mg Q6H PRN Administration PAIN LEVEL 7 - 10 Phenazopyridine HCl 100 mg 09/11/19 22:00 09/14/19 14:53 Pyridium - PO 100 mg TID [facility] Administration Polyethylene Glycol 17 gm 09/11/19 22:00 09/14/19 10:07 Miralax (For Daily Use) - PO Not Given BID [facility] Promethazine HCl 12.5 mg 09/11/19 20:40 Phenergan Injection - IVPB Q6H PRN NAUSEA-FOR RESCUE AFTER 15 MIN Rivaroxaban 20 mg 09/14/19 18:00 Xarelto PO DAILY@1800 [facility] Tamsulosin HCl 0.4 mg 09/12/19 08:30 09/14/19 08:24 Flomax - PO 0.4 mg DAILY@0830 [facility] Administration Impression 1. JANETT 2. lactic acidosis 3. sepsis 4. chf 5. hld 6. hx htn 7. nephrolithiasis 8. shock 9. hydronephrosis 10. obesity 11. copd Plan - renal function stable - monitor off of fluids - repeat labs in am - monitor bp - lactic acid is improved - urology follow up
[2019-09-14] MEDS ORDERED: HYDROCORTISONE 0.5% TOPICAL OINTMENT TUBE TP SCH ×2 (18:44→18:45)
[2019-09-14] MEDS: RIVAROXABAN 20 MG TABLET PO SCH (18:44)
--- NOTE | 2019-09-14 20:02 | PN ---
Progress Note, Physician History of Present Illness: RECURRENT TEMP NOTED REPEAT BC OBTAINED AWAKE, ALERT IN BED REPORTS LESS L FLANK PAIN LEUKOCYTOSIS IMPROVED WNL AZOTEMIA IMPROVED BC E COLI - Current Medication List Current Medications: Active Medications Acetaminophen (Tylenol -) 650 mg PO Q4H PRN PRN Reason: FEVER Last Admin: 09/14/19 10:07 Dose: 650 mg Documented by: Al Hydroxide/Mg Hydroxide (Mylanta Oral Suspension -) 30 ml PO Q6H PRN PRN Reason: DYSPEPSIA Atorvastatin Calcium (Lipitor -) 10 mg PO HS [facility] Last Admin: 09/13/19 21:02 Dose: 10 mg Documented by: Clopidogrel Bisulfate (Plavix -) 75 mg PO DAILY [facility] Last Admin: 09/14/19 10:06 Dose: 75 mg Documented by: Digoxin (Lanoxin -) 0.25 mg PO DAILY [facility] Last Admin: 09/14/19 10:05 Dose: 0.25 mg Documented by: Finasteride (Proscar -) 5 mg PO DAILY [facility] Last Admin: 09/14/19 10:06 Dose: 5 mg Documented by: Gabapentin (Neurontin -) 900 mg PO TID [facility] Last Admin: 09/14/19 14:53 Dose: 900 mg Documented by: Hydrocortisone (Hytone 1% Ointment -) 1 applic TP BID [facility] Cefazolin Sodium 1 gm/ (Dextrose) 50 mls @ 100 mls/hr IVPB Q8H-IV [facility] Last Admin: 09/14/19 18:38 Dose: 100 mls/hr Documented by: Insulin Aspart (Novolog Vial Sliding Scale -) 1 vial SQ ACHS [facility]; Protocol Last Admin: 09/14/19 17:32 Dose: 4 units Documented by: Lidocaine HCl (Xylocaine 5% Top. Ointment) 1 applic TP BID [facility] Last Admin: 09/14/19 10:06 Dose: 1 applic Documented by: Melatonin (Melatonin) 10 mg PO HS [facility] Last Admin: 09/13/19 21:02 Dose: 10 mg Documented by: Methylnaltrexone [place] (Relistor -) 12 mg SQ DAILY [facility] Last Admin: 09/14/19 10:07 Dose: Not Given Documented by: Metoprolol Succinate (Toprol Xl -) 50 mg PO BID [facility] Last Admin: 09/14/19 10:06 Dose: 50 mg Documented by: Ondansetron HCl (Zofran Injection) 4 mg IVPUSH Q6H PRN PRN Reason: NAUSEA AND/OR VOMITING Oxycodone HCl (Roxicodone -) 30 mg PO Q6H PRN PRN Reason: PAIN LEVEL 7 - 10 Last Admin: 09/14/19 14:53 Dose: 30 mg Documented by: Phenazopyridine HCl (Pyridium -) 100 mg PO TID [facility] Last Admin: 09/14/19 14:53 Dose: 100 mg Documented by: Polyethylene Glycol (Miralax (For Daily Use) -) 17 gm PO BID [facility] Last Admin: 09/14/19 10:07 Dose: Not Given Documented by: Promethazine HCl (Phenergan Injection -) 12.5 mg IVPB Q6H PRN PRN Reason: NAUSEA-FOR RESCUE AFTER 15 MIN Rivaroxaban (Xarelto) 20 mg PO DAILY@1800 [facility] Last Admin: 09/14/19 18:44 Dose: 20 mg Documented by: Tamsulosin HCl (Flomax -) 0.4 mg PO DAILY@0830 [facility] Last Admin: 09/14/19 08:24 Dose: 0.4 mg Documented by: - Objective Vital Signs: Vital Signs Temperature 98.8 F 09/14/19 18:00 Pulse Rate 83 09/14/19 18:00 Respiratory Rate 19 09/14/19 18:00 Blood Pressure 147/69 09/14/19 18:00 O2 Sat by Pulse Oximetry (%) 99 09/14/19 09:00 Constitutional: Yes: No Distress Eyes: Yes: Conjunctiva Clear Cardiovascular: Yes: Regular Rate and Rhythm, S1, S2 Respiratory: Yes: CTA Bilaterally Gastrointestinal: Yes: Normal Bowel Sounds, Soft, Abdomen, Obese Genitourinary: Yes: CVA Tenderness - Left Edema: Yes Labs: CBC, BMP 09/13/19 11:44 09/14/19 05:42 INR, PTT INR 2.43 (0.83-1.09) H 09/10/19 08:11 Assessment/Plan GRAM NEGATIVE BACTEREMIA/ SEPSIS E COLI LEUKOCYTOSIS IMPROVED AZOTEMIA IMPROVED CONTINUE CEFAZOLIN INCREASE 2GM IVPB Q8H FOR IMPROVED RENAL FUNCTION
[2019-09-14] MEDS: HYDROCORTISONE 1% TOPICAL OINT 30 GM TUBE TP SCH (21:01)
[2019-09-14] MEDS: ATORVASTATIN CA 10 MG TABLET (FP) PO SCH (21:02)
[2019-09-14] MEDS: MELATONIN 5 MG TABLETS PO SCH (21:08)
[2019-09-15] MEDS ORDERED: DEXTROSE 5%-WATER - 50 ML IVPB ONE ×2 (02:13→09:15)
[2019-09-15] MEDS ORDERED: ceFAZolin SODIUM 1 GM VIAL ONE ×2 (02:13→09:15)
[2019-09-15] MEDS: ACETAMINOPHEN 325 MG TABLET (FP) PO PRN ×3 (02:17→21:10)
[2019-09-15] MEDS: CEFAZOLIN 1 GM in DEXTROSE 5%-WATER - 50 ML IVPB SCH ×2 (02:17→09:19)
[2019-09-15] MEDS: oxyCODONE HCL 5 MG TABLET PO PRN ×4 (02:51→21:07)
[2019-09-15] MEDS: GABAPENTIN 300 MG CAPSULE PO SCH ×3 (06:09→21:07)
[2019-09-15] MEDS: PHENAZOPYRIDINE HCL 100 MG TABLET (FP) PO SCH ×3 (06:10→21:07)
[2019-09-15] MEDS: INSULIN SLIDING SCALE (NOVOLOG) 1 VIAL SQ SCH ×4 (06:51→21:07)
[2019-09-15] MEDS: TAMSULOSIN HCL 0.4 MG CAP PO SCH (08:26)
[2019-09-15] MEDS: HYDROCORTISONE 1% TOPICAL OINT 30 GM TUBE TP SCH ×2 (09:19→21:10)
[2019-09-15] MEDS: FINASTERIDE 5 MG TABLET (FP) PO SCH (09:20)
[2019-09-15] MEDS: CLOPIDOGREL BISULFATE 75 MG TABLET (FP) PO SCH (09:21)
[2019-09-15] MEDS: DIGOXIN 0.25 MG TABLET (FP) PO SCH (09:21)
[2019-09-15] MEDS: Methylnaltrexone Bromide 12 MG/0.6 ML KIT SQ SCH (09:26)
[2019-09-15] MEDS: POLYETHYLENE GLYCOL 3350 119 GM BTL PO SCH ×2 (09:26→21:08)
[2019-09-15] MEDS: LIDOCAINE HCL 5% TOP OINTMENT 50 GM TUBE TP SCH ×2 (09:26→21:10)
--- NOTE | 2019-09-15 09:53 | PN ---
Progress Note, Physician - Current Medication List Current Medications: Active Medications Acetaminophen (Tylenol -) 650 mg PO Q4H PRN PRN Reason: FEVER Last Admin: 09/15/19 09:21 Dose: 650 mg Documented by: Al Hydroxide/Mg Hydroxide (Mylanta Oral Suspension -) 30 ml PO Q6H PRN PRN Reason: DYSPEPSIA Atorvastatin Calcium (Lipitor -) 10 mg PO [facility] Last Admin: 09/14/19 21:02 Dose: 10 mg Documented by: Clopidogrel Bisulfate (Plavix -) 75 mg PO DAILY [facility] Last Admin: 09/15/19 09:21 Dose: 75 mg Documented by: Digoxin (Lanoxin -) 0.25 mg PO DAILY [facility] Last Admin: 09/15/19 09:21 Dose: 0.25 mg Documented by: Finasteride (Proscar -) 5 mg PO DAILY [facility] Last Admin: 09/15/19 09:20 Dose: 5 mg Documented by: Gabapentin (Neurontin -) 900 mg PO TID [facility] Last Admin: 09/15/19 06:09 Dose: 900 mg Documented by: Hydrocortisone (Hytone 1% Ointment -) 1 applic TP BID [facility] Last Admin: 09/15/19 09:19 Dose: 1 applic Documented by: Cefazolin Sodium 1 gm/ (Dextrose) 50 mls @ 100 mls/hr IVPB Q8H-IV [facility] Last Admin: 09/15/19 09:19 Dose: 100 mls/hr Documented by: Insulin Aspart (Novolog Vial Sliding Scale -) 1 vial SQ [facility]; Protocol Last Admin: 09/15/19 06:51 Dose: 4 units Documented by: Lidocaine HCl (Xylocaine 5% Top. Ointment) 1 applic TP BID [facility] Last Admin: 09/15/19 09:26 Dose: 1 applic Documented by: Melatonin (Melatonin) 10 mg PO [facility] Last Admin: 09/14/19 21:08 Dose: 10 mg Documented by: Methylnaltrexone [place] (Relistor -) 12 mg SQ DAILY [facility] Last Admin: 09/15/19 09:26 Dose: Not Given Documented by: Metoprolol Succinate (Toprol Xl -) 50 mg PO BID [facility] Last Admin: 09/15/19 09:21 Dose: 50 mg Documented by: Ondansetron HCl (Zofran Injection) 4 mg IVPUSH Q6H PRN PRN Reason: NAUSEA AND/OR VOMITING Oxycodone HCl (Roxicodone -) 30 mg PO Q6H PRN PRN Reason: PAIN LEVEL 7 - 10 Last Admin: 09/15/19 09:21 Dose: 30 mg Documented by: Phenazopyridine HCl (Pyridium -) 100 mg PO TID [facility] Last Admin: 09/15/19 06:10 Dose: 100 mg Documented by: Polyethylene Glycol (Miralax (For Daily Use) -) 17 gm PO BID [facility] Last Admin: 09/15/19 09:26 Dose: Not Given Documented by: Promethazine HCl (Phenergan Injection -) 12.5 mg IVPB Q6H PRN PRN Reason: NAUSEA-FOR RESCUE AFTER 15 MIN Rivaroxaban (Xarelto) 20 mg PO DAILY@1800 [facility] Last Admin: 09/14/19 18:44 Dose: 20 mg Documented by: Tamsulosin HCl (Flomax -) 0.4 mg PO DAILY@0830 [facility] Last Admin: 09/15/19 08:26 Dose: 0.4 mg Documented by: - Objective Vital Signs: Vital Signs Temperature 98.4 F 09/15/19 09:29 Pulse Rate 72 09/15/19 09:29 Respiratory Rate 20 09/15/19 06:00 Blood Pressure 128/70 09/15/19 06:00 O2 Sat by Pulse Oximetry (%) 97 09/14/19 21:00 Cardiovascular: Yes: S1, S2 Respiratory: Yes: Regular, CTA Bilaterally Gastrointestinal: Yes: Normal Bowel Sounds, Soft. No: Tenderness Labs: CBC, BMP 09/13/19 11:44 09/14/19 05:42 INR, PTT INR 2.43 (0.83-1.09) H 09/10/19 08:11 Problem List - Problems (1) Sepsis Assessment/Plan: IV ABX ID ON BOARD ICU MONITORING Microbiology 09/14/19 10:55 Blood - Peripheral Venous Blood Culture - Preliminary NO GROWTH OBTAINED AFTER 24 HOURS, INCUBATION TO CONTINUE FOR 4 DAYS. 09/14/19 10:48 Blood - Peripheral Venous Blood Culture - Preliminary NO GROWTH OBTAINED AFTER 24 HOURS, INCUBATION TO CONTINUE FOR 4 DAYS. 09/09/19 21:30 Blood - Peripheral Venous Blood Culture - Final Escherichia Coli 09/09/19 21:30 Blood - Peripheral Venous Blood Culture - Final Escherichia Coli 09/09/19 21:30 Urine - Urine - Catheterized Urine Culture - Final Escherichia Coli Code(s): A41.9 - SEPSIS, UNSPECIFIED ORGANISM Qualifiers: Sepsis type: sepsis due to unspecified organism Qualified Code(s): A41.9 - Sepsis, unspecified organism (2) UTI (urinary tract infection) Assessment/Plan: ABOVE Microbiology 09/09/19 21:30 Blood - Peripheral Venous Blood Culture - Final Escherichia Coli 09/09/19 21:30 Blood - Peripheral Venous Blood Culture - Final Escherichia Coli 09/09/19 21:30 Urine - Urine - Catheterized Urine Culture - Final Escherichia Coli Code(s): N39.0 - URINARY TRACT INFECTION, SITE NOT SPECIFIED (3) Atrial fibrillation with RVR Assessment/Plan: Improved rate controlled ON B-BLOCKERS resume xarelto Code(s): I48.91 - UNSPECIFIED ATRIAL FIBRILLATION (4) CHF (congestive heart failure) Code(s): I50.9 - HEART FAILURE, UNSPECIFIED (5) COPD (chronic obstructive pulmonary disease) Assessment/Plan: stable Code(s): J44.9 - CHRONIC OBSTRUCTIVE PULMONARY DISEASE, UNSPECIFIED (6) Diabetes Assessment/Plan: BGM Code(s): E11.9 - TYPE 2 DIABETES MELLITUS WITHOUT COMPLICATIONS Qualifiers: Diabetes mellitus type: type 2 (7) HTN (hypertension) Assessment/Plan: Vital Signs Period Temp Pulse Resp BP Sys/Mixon Pulse Ox Last 24 Hr 98.1 F-99.1 F 78-101 20-20 110-131/58-90 100 Code(s): I10 - ESSENTIAL (PRIMARY) HYPERTENSION (8) Obstructive nephropathy Assessment/Plan: Operative Date: 09/10/19 Pre-Operative Diagnosis: left ureteral stone with high grade obstruction; gram negative sepsis; acute renal injury Operation: cystoscopy/left retrograde pyelogram/left ureteroscopic stone manipulation and stent placement. Findings: high grade hydronephrosis with obstructing 1+ ureteral stone Post-Operative Diagnosis: Same as Pre-op Surgeon: Tyrell Little Code(s): N13.8 - OTHER OBSTRUCTIVE AND REFLUX UROPATHY
[2019-09-15 11:07] LABS: BASO % 0.6 % (0-2.0); EOS % 2.5 % (0-4.5); HEMATOCRIT 32.6 % (35.4-49); HEMOGLOBIN 10.8 GM/dL (11.7-16.9); LYMPH % 16.6 % (8-40); MCH 30.2 pg (25.7-33.7); MCHC 33.2 g/dl (32.0-35.9); MEAN PLT VOLUME 7.9 fl (7.5-11.1); MONO % 15.8 % (3.8-10.2); NEUT % 64.5 % (42.8-82.8); PLATELET COUNT 141 K/MM3 (134-434); RBC 3.59 M/mm3 (4.00-5.60); RDW 15.5 % (11.9-15.9); WHITE BLOOD COUNT 4.9 K/mm3 (4.0-10.0)
[2019-09-15 11:29] LABS: ALBUMIN 2.2 g/dl (3.4-5.0); BILIRUBIN,TOTAL 0.6 mg/dL (0.2-1); BLOOD UREA NITROGEN 19.2 mg/dL (7-18); CALCIUM 8.4 mg/dL (8.5-10.1); CREATININE 1.1 mg/dL (0.55-1.3); POTASSIUM 4.6 mmol/L (3.5-5.1); TOT PROT 6.2 g/dl (6.4-8.2)
--- NOTE | 2019-09-15 11:59 | PN ---
Progress Note (short form) - Note Progress Note: s: no chest pain, palps, dizziness, dyspnea Current Medications Generic Name Dose Route Start Last Admin Trade Name Freq PRN Reason Stop Dose Admin Acetaminophen 650 mg 09/12/19 14:50 09/15/19 09:21 Tylenol - PO 650 mg Q4H PRN Administration FEVER Al Hydroxide/Mg Hydroxide 30 ml 09/11/19 20:40 Mylanta Oral Suspension - PO Q6H PRN DYSPEPSIA Atorvastatin Calcium 10 mg 09/11/19 22:00 09/14/19 21:02 Lipitor - PO 10 mg HS [facility] Administration Clopidogrel Bisulfate 75 mg 09/12/19 10:00 09/15/19 09:21 Plavix - PO 75 mg DAILY [facility] Administration Digoxin 0.25 mg 09/14/19 10:00 09/15/19 09:21 Lanoxin - PO 0.25 mg DAILY [facility] Administration Finasteride 5 mg 09/12/19 10:00 09/15/19 09:20 Proscar - PO 5 mg DAILY [facility] Administration Gabapentin 900 mg 09/11/19 22:00 09/15/19 06:09 Neurontin - PO 900 mg TID [facility] Administration Hydrocortisone 1 applic 09/14/19 22:00 09/15/19 09:19 Hytone 1% Ointment - TP 1 applic BID [facility] Administration Cefazolin Sodium/Dextrose 2 gm in 50 mls @ 100 mls/hr 09/15/19 18:00 Ancef 2 Gm Premixed Ivpb - IVPB Q8H-IV [facility] Insulin Aspart 1 vial 09/11/19 22:00 09/15/19 11:52 Novolog Vial Sliding Scale - SQ 6 units ACHS [facility] Administration Protocol Lidocaine HCl 1 applic 09/11/19 22:00 09/15/19 09:26 Xylocaine 5% Top. Ointment TP 1 applic BID [facility] Administration Melatonin 10 mg 09/11/19 22:00 09/14/19 21:08 Melatonin PO 10 mg HS [facility] Administration Methylnaltrexone [place] 12 mg 09/12/19 10:00 09/15/19 09:26 Relistor - SQ Not Given DAILY [facility] Metoprolol Succinate 50 mg 09/12/19 22:00 09/15/19 09:21 Toprol Xl - PO 50 mg BID [facility] Administration Ondansetron HCl 4 mg 07/04/20 20:40 Zofran Injection IVPUSH Q6H PRN NAUSEA AND/OR VOMITING Oxycodone HCl 30 mg 09/11/19 20:40 09/15/19 09:21 Roxicodone - PO 30 mg Q6H PRN Administration PAIN LEVEL 7 - 10 Phenazopyridine HCl 100 mg 09/11/19 22:00 09/15/19 06:10 Pyridium - PO 100 mg TID [facility] Administration Polyethylene Glycol 17 gm 09/11/19 22:00 09/15/19 09:26 Miralax (For Daily Use) - PO Not Given BID [facility] Promethazine HCl 12.5 mg 09/11/19 20:40 Phenergan Injection - IVPB Q6H PRN NAUSEA-FOR RESCUE AFTER 15 MIN Rivaroxaban 20 mg 09/14/19 18:00 09/14/19 18:44 Xarelto PO 20 mg DAILY@1800 [facility] Administration Tamsulosin HCl 0.4 mg 09/12/19 08:30 09/15/19 08:26 Flomax - PO 0.4 mg DAILY@0830 [facility] Administration Vital Signs Period Temp Pulse Resp BP Sys/Mixon Pulse Ox Last 24 Hr 97.7 F-101.9 F 65-98 18-20 125-147/65-78 97 Constitutional: Yes: No Distress, Calm Respiratory: Yes: CTA Bilaterally nl eff Gastrointestinal: Yes: Soft, Abdomen, Obese Cardiovascular: Yes: Pulse Irregular Heart Sounds: Yes: S1, S2 (iireg) Edema: LLE: 1+, RLE: 1+ Neurological: Yes: Alert, Oriented no jaundice diaphoresis not agitated Echo 04/29: nl LVSF. RV tds. mild TR. mildly dilated ascending aorta tele: afib, rate controlled cxr: clear lungs ecg: afib 127, nl intervals, nonspec st changes a/p: 64M with chronic AF , s/p PPM at [facility], CAD s/p PCI, remote hx intracranial bleed after a fall many years ago s/p evacuation at [facility] presents to ER with fever afib: -rate controlled, cont home toprol and dig (level ok here) -xarelto resumed - dc tele cad, remote pci: -stable, no signs acs -cont bb, statin, plavix ppm: -outpt f/u uti, chrystal: -Found to have uti/kidney stone, now s/p cysto/stenting. -cr improving
--- NOTE | 2019-09-15 12:47 | PN ---
Progress Note, Physician History of Present Illness: Pt seen and examined at bedside. He is awake and alert. He denies shortness of breath. - Current Medication List Current Medications: Active Medications Acetaminophen (Tylenol -) 650 mg PO Q4H PRN PRN Reason: FEVER Last Admin: 09/15/19 09:21 Dose: 650 mg Documented by: Al Hydroxide/Mg Hydroxide (Mylanta Oral Suspension -) 30 ml PO Q6H PRN PRN Reason: DYSPEPSIA Atorvastatin Calcium (Lipitor -) 10 mg PO [facility] Last Admin: 09/14/19 21:02 Dose: 10 mg Documented by: Clopidogrel Bisulfate (Plavix -) 75 mg PO DAILY [facility] Last Admin: 09/15/19 09:21 Dose: 75 mg Documented by: Digoxin (Lanoxin -) 0.25 mg PO DAILY [facility] Last Admin: 09/15/19 09:21 Dose: 0.25 mg Documented by: Finasteride (Proscar -) 5 mg PO DAILY [facility] Last Admin: 09/15/19 09:20 Dose: 5 mg Documented by: Gabapentin (Neurontin -) 900 mg PO TID [facility] Last Admin: 09/15/19 06:09 Dose: 900 mg Documented by: Hydrocortisone (Hytone 1% Ointment -) 1 applic TP BID [facility] Last Admin: 09/15/19 09:19 Dose: 1 applic Documented by: Cefazolin Sodium/Dextrose (Ancef 2 Gm Premixed Ivpb -) 2 gm in 50 mls @ 100 mls/hr IVPB Q8H-IV [facility] Insulin Aspart (Novolog Vial Sliding Scale -) 1 vial SQ ACHS [facility]; Protocol Last Admin: 09/15/19 11:52 Dose: 6 units Documented by: Lidocaine HCl (Xylocaine 5% Top. Ointment) 1 applic TP BID [facility] Last Admin: 09/15/19 09:26 Dose: 1 applic Documented by: Melatonin (Melatonin) 10 mg PO [facility] Last Admin: 09/14/19 21:08 Dose: 10 mg Documented by: Methylnaltrexone [place] (Relistor -) 12 mg SQ DAILY [facility] Last Admin: 09/15/19 09:26 Dose: Not Given Documented by: Metoprolol Succinate (Toprol Xl -) 50 mg PO BID [facility] Last Admin: 09/15/19 09:21 Dose: 50 mg Documented by: Ondansetron HCl (Zofran Injection) 4 mg IVPUSH Q6H PRN PRN Reason: NAUSEA AND/OR VOMITING Oxycodone HCl (Roxicodone -) 30 mg PO Q6H PRN PRN Reason: PAIN LEVEL 7 - 10 Last Admin: 09/15/19 09:21 Dose: 30 mg Documented by: Phenazopyridine HCl (Pyridium -) 100 mg PO TID [facility] Last Admin: 09/15/19 06:10 Dose: 100 mg Documented by: Polyethylene Glycol (Miralax (For Daily Use) -) 17 gm PO BID [facility] Last Admin: 09/15/19 09:26 Dose: Not Given Documented by: Promethazine HCl (Phenergan Injection -) 12.5 mg IVPB Q6H PRN PRN Reason: NAUSEA-FOR RESCUE AFTER 15 MIN Rivaroxaban (Xarelto) 20 mg PO DAILY@1800 [facility] Last Admin: 09/14/19 18:44 Dose: 20 mg Documented by: Tamsulosin HCl (Flomax -) 0.4 mg PO DAILY@0830 [facility] Last Admin: 09/15/19 08:26 Dose: 0.4 mg Documented by: - Objective Vital Signs: Vital Signs Temperature 98.4 F 09/15/19 10:00 Pulse Rate 65 09/15/19 10:00 Respiratory Rate 18 09/15/19 10:00 Blood Pressure 133/78 09/15/19 10:00 O2 Sat by Pulse Oximetry (%) 97 09/14/19 21:00 Constitutional: Yes: Calm Eyes: Yes: Conjunctiva Clear HENT: Yes: Atraumatic Neck: Yes: Supple Cardiovascular: Yes: S1, S2 Respiratory: Yes: CTA Bilaterally Gastrointestinal: Yes: Soft Genitourinary: Yes: Vasques Present Musculoskeletal: Yes: WNL Edema: Yes Edema: LLE: Trace, RLE: Trace Neurological: Yes: Oriented Psychiatric: Yes: Oriented Labs: CBC, BMP 09/15/19 10:20 09/15/19 10:20 INR, PTT INR 2.43 (0.83-1.09) H 09/10/19 08:11 Problem List - Problems (1) JANETT (acute kidney injury) Code(s): N17.9 - ACUTE KIDNEY FAILURE, UNSPECIFIED (2) CHF (congestive heart failure) Code(s): I50.9 - HEART FAILURE, UNSPECIFIED (3) COPD (chronic obstructive pulmonary disease) Code(s): J44.9 - CHRONIC OBSTRUCTIVE PULMONARY DISEASE, UNSPECIFIED (4) Lactic acidosis Code(s): E87.2 - ACIDOSIS Assessment/Plan Current Medications Generic Name Dose Route Start Last Admin Trade Name Freq PRN Reason Stop Dose Admin Acetaminophen 650 mg 09/12/19 14:50 09/15/19 09:21 Tylenol - PO 650 mg Q4H PRN Administration FEVER Al Hydroxide/Mg Hydroxide 30 ml 09/11/19 20:40 Mylanta Oral Suspension - PO Q6H PRN DYSPEPSIA Atorvastatin Calcium 10 mg 09/11/19 22:00 09/14/19 21:02 Lipitor - PO 10 mg HS [facility] Administration Clopidogrel Bisulfate 75 mg 09/12/19 10:00 09/15/19 09:21 Plavix - PO 75 mg DAILY [facility] Administration Digoxin 0.25 mg 09/14/19 10:00 09/15/19 09:21 Lanoxin - PO 0.25 mg DAILY [facility] Administration Finasteride 5 mg 09/12/19 10:00 09/15/19 09:20 Proscar - PO 5 mg DAILY [facility] Administration Gabapentin 900 mg 09/11/19 22:00 09/15/19 06:09 Neurontin - PO 900 mg TID [facility] Administration Hydrocortisone 1 applic 09/14/19 22:00 09/15/19 09:19 Hytone 1% Ointment - TP 1 applic BID [facility] Administration Cefazolin Sodium/Dextrose 2 gm in 50 mls @ 100 mls/hr 09/15/19 18:00 Ancef 2 Gm Premixed Ivpb - IVPB Q8H-IV [facility] Insulin Aspart 1 vial 09/11/19 22:00 09/15/19 11:52 Novolog Vial Sliding Scale - SQ 6 units ACHS [facility] Administration Protocol Lidocaine HCl 1 applic 09/11/19 22:00 09/15/19 09:26 Xylocaine 5% Top. Ointment TP 1 applic BID [facility] Administration Melatonin 10 mg 09/11/19 22:00 09/14/19 21:08 Melatonin PO 10 mg HS [facility] Administration Methylnaltrexone [place] 12 mg 09/12/19 10:00 09/15/19 09:26 Relistor - SQ Not Given DAILY [facility] Metoprolol Succinate 50 mg 09/12/19 22:00 09/15/19 09:21 Toprol Xl - PO 50 mg BID [facility] Administration Ondansetron HCl 4 mg 09/11/19 20:40 Zofran Injection IVPUSH Q6H PRN NAUSEA AND/OR VOMITING Oxycodone HCl 30 mg 09/11/19 20:40 09/15/19 09:21 Roxicodone - PO 30 mg Q6H PRN Administration PAIN LEVEL 7 - 10 Phenazopyridine HCl 100 mg 09/11/19 22:00 09/15/19 06:10 Pyridium - PO 100 mg TID [facility] Administration Polyethylene Glycol 17 gm 09/11/19 22:00 09/15/19 09:26 Miralax (For Daily Use) - PO Not Given BID [facility] Promethazine HCl 12.5 mg 09/11/19 20:40 Phenergan Injection - IVPB Q6H PRN NAUSEA-FOR RESCUE AFTER 15 MIN Rivaroxaban 20 mg 09/14/19 18:00 09/14/19 18:44 Xarelto PO 20 mg DAILY@1800 [facility] Administration Tamsulosin HCl 0.4 mg 09/12/19 08:30 09/15/19 08:26 Flomax - PO 0.4 mg DAILY@0830 [facility] Administration Impression 1. JANETT 2. lactic acidosis 3. sepsis 4. chf 5. hld 6. hx htn 7. nephrolithiasis 8. shock 9. hydronephrosis 10. obesity 11. 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
[2019-09-15] MEDS: CEFAZOLIN 2 GM/D5W 2 GM/50 ML ML IVPB SCH (17:27)
[2019-09-15] MEDS: RIVAROXABAN 20 MG TABLET PO SCH (17:27)
[2019-09-15] MEDS: MELATONIN 5 MG TABLETS PO SCH (21:07)
[2019-09-15] MEDS: ATORVASTATIN CA 10 MG TABLET (FP) PO SCH (21:07)
[2019-09-16] MEDS: CEFAZOLIN 2 GM/D5W 2 GM/50 ML ML IVPB SCH ×3 (01:57→17:31)
[2019-09-16] MEDS: ACETAMINOPHEN 325 MG TABLET (FP) PO PRN ×3 (02:00→21:11)
[2019-09-16] MEDS: oxyCODONE HCL 5 MG TABLET PO PRN ×4 (02:55→21:15)
[2019-09-16] MEDS: GABAPENTIN 300 MG CAPSULE PO SCH ×3 (05:55→21:14)
[2019-09-16] MEDS: PHENAZOPYRIDINE HCL 100 MG TABLET (FP) PO SCH ×3 (05:55→21:10)
[2019-09-16] MEDS: INSULIN SLIDING SCALE (NOVOLOG) 1 VIAL SQ SCH ×4 (06:55→22:18)
[2019-09-16 08:02] LABS: BASO % 1.1 % (0-2.0); EOS % 2.6 % (0-4.5); HEMATOCRIT 30.5 % (35.4-49); LYMPH % 21.2 % (8-40); MCH 29.5 pg (25.7-33.7); MCHC 32.7 g/dl (32.0-35.9); MEAN CELL VOLUME 90.2 fl (80-96); MEAN PLT VOLUME 7.4 fl (7.5-11.1); MONO % 12.2 % (3.8-10.2); NEUT % 62.9 % (42.8-82.8); PLATELET COUNT 193 K/MM3 (134-434); RBC 3.38 M/mm3 (4.00-5.60); RDW 15.3 % (11.9-15.9); WHITE BLOOD COUNT 5.8 K/mm3 (4.0-10.0)
[2019-09-16 08:18] LABS: BILIRUBIN,TOTAL 0.5 mg/dL (0.2-1); BLOOD UREA NITROGEN 17.5 mg/dL (7-18); CALCIUM 7.9 mg/dL (8.5-10.1); CREATININE 1.1 mg/dL (0.55-1.3); POTASSIUM 4.4 mmol/L (3.5-5.1); TOT PROT 5.8 g/dl (6.4-8.2)
--- NOTE | 2019-09-16 08:41 | PN ---
Progress Note, Physician - Current Medication List Current Medications: Active Medications Acetaminophen (Tylenol -) 650 mg PO Q4H PRN PRN Reason: FEVER Last Admin: 09/16/19 02:00 Dose: 650 mg Documented by: Al Hydroxide/Mg Hydroxide (Mylanta Oral Suspension -) 30 ml PO Q6H PRN PRN Reason: DYSPEPSIA Atorvastatin Calcium (Lipitor -) 10 mg PO [facility] Last Admin: 09/15/19 21:07 Dose: 10 mg Documented by: Clopidogrel Bisulfate (Plavix -) 75 mg PO DAILY [facility] Last Admin: 09/15/19 09:21 Dose: 75 mg Documented by: Digoxin (Lanoxin -) 0.25 mg PO DAILY [facility] Last Admin: 09/15/19 09:21 Dose: 0.25 mg Documented by: Finasteride (Proscar -) 5 mg PO DAILY [facility] Last Admin: 09/15/19 09:20 Dose: 5 mg Documented by: Gabapentin (Neurontin -) 900 mg PO TID [facility] Last Admin: 09/16/19 05:55 Dose: 900 mg Documented by: Hydrocortisone (Hytone 1% Ointment -) 1 applic TP BID [facility] Last Admin: 09/15/19 21:10 Dose: 1 applic Documented by: Cefazolin Sodium/Dextrose (Ancef 2 Gm Premixed Ivpb -) 2 gm in 50 mls @ 100 mls/hr IVPB Q8H-IV [facility] Last Admin: 09/16/19 01:57 Dose: 100 mls/hr Documented by: Insulin Aspart (Novolog Vial Sliding Scale -) 1 vial SQ ACHS [facility]; Protocol Last Admin: 09/16/19 06:55 Dose: 4 units Documented by: Lidocaine HCl (Xylocaine 5% Top. Ointment) 1 applic TP BID [facility] Last Admin: 09/15/19 21:10 Dose: 1 applic Documented by: Melatonin (Melatonin) 10 mg PO [facility] Last Admin: 09/15/19 21:07 Dose: 10 mg Documented by: Methylnaltrexone [place] (Relistor -) 12 mg SQ DAILY [facility] Last Admin: 09/15/19 09:26 Dose: Not Given Documented by: Metoprolol Succinate (Toprol Xl -) 50 mg PO BID [facility] Last Admin: 09/15/19 21:07 Dose: 50 mg Documented by: Ondansetron HCl (Zofran Injection) 4 mg IVPUSH Q6H PRN PRN Reason: NAUSEA AND/OR VOMITING Oxycodone HCl (Roxicodone -) 30 mg PO Q6H PRN PRN Reason: PAIN LEVEL 7 - 10 Last Admin: 09/16/19 02:55 Dose: 30 mg Documented by: Phenazopyridine HCl (Pyridium -) 100 mg PO TID [facility] Last Admin: 09/16/19 05:55 Dose: 100 mg Documented by: Polyethylene Glycol (Miralax (For Daily Use) -) 17 gm PO BID [facility] Last Admin: 09/15/19 21:08 Dose: Not Given Documented by: Promethazine HCl (Phenergan Injection -) 12.5 mg IVPB Q6H PRN PRN Reason: NAUSEA-FOR RESCUE AFTER 15 MIN Rivaroxaban (Xarelto) 20 mg PO DAILY@1800 [facility] Last Admin: 09/15/19 17:27 Dose: 20 mg Documented by: Tamsulosin HCl (Flomax -) 0.4 mg PO DAILY@0830 [facility] Last Admin: 09/15/19 08:26 Dose: 0.4 mg Documented by: - Objective Vital Signs: Vital Signs Temperature 98.9 F 09/16/19 06:00 Pulse Rate 74 09/16/19 06:00 Respiratory Rate 18 09/16/19 06:00 Blood Pressure 122/65 09/16/19 06:00 O2 Sat by Pulse Oximetry (%) 97 09/15/19 21:00 Cardiovascular: Yes: S1, S2 Respiratory: Yes: Regular, CTA Bilaterally Gastrointestinal: Yes: Normal Bowel Sounds, Soft. No: Tenderness Labs: CBC, BMP 09/16/19 05:56 09/16/19 05:56 INR, PTT INR 2.43 (0.83-1.09) H 09/10/19 08:11 Problem List - Problems (1) Sepsis Assessment/Plan: IV ABX ID ON BOARD--follow up Tmax 100.9 Microbiology 09/14/19 10:55 Blood - Peripheral Venous Blood Culture - Preliminary NO GROWTH OBTAINED AFTER 24 HOURS, INCUBATION TO CONTINUE FOR 4 DAYS. 09/14/19 10:48 Blood - Peripheral Venous Blood Culture - Preliminary NO GROWTH OBTAINED AFTER 24 HOURS, INCUBATION TO CONTINUE FOR 4 DAYS. 09/09/19 21:30 Blood - Peripheral Venous Blood Culture - Final Escherichia Coli 09/09/19 21:30 Blood - Peripheral Venous Blood Culture - Final Escherichia Coli 09/09/19 21:30 Urine - Urine - Catheterized Urine Culture - Final Escherichia Coli Code(s): A41.9 - SEPSIS, UNSPECIFIED ORGANISM Qualifiers: Sepsis type: sepsis due to unspecified organism Qualified Code(s): A41.9 - Sepsis, unspecified organism (2) UTI (urinary tract infection) Assessment/Plan: ABOVE Microbiology 09/09/19 21:30 Blood - Peripheral Venous Blood Culture - Final Escherichia Coli 09/09/19 21:30 Blood - Peripheral Venous Blood Culture - Final Escherichia Coli 09/09/19 21:30 Urine - Urine - Catheterized Urine Culture - Final Escherichia Coli Code(s): N39.0 - URINARY TRACT INFECTION, SITE NOT SPECIFIED (3) Atrial fibrillation with RVR Assessment/Plan: Improved rate controlled ON B-BLOCKERS resume xarelto Code(s): I48.91 - UNSPECIFIED ATRIAL FIBRILLATION (4) CHF (congestive heart failure) Code(s): I50.9 - HEART FAILURE, UNSPECIFIED (5) COPD (chronic obstructive pulmonary disease) Assessment/Plan: stable Code(s): J44.9 - CHRONIC OBSTRUCTIVE PULMONARY DISEASE, UNSPECIFIED (6) Diabetes Assessment/Plan: BGM Code(s): E11.9 - TYPE 2 DIABETES MELLITUS WITHOUT COMPLICATIONS Qualifiers: Diabetes mellitus type: type 2 (7) HTN (hypertension) Assessment/Plan: Vital Signs Period Temp Pulse Resp BP Sys/Mixon Pulse Ox Last 24 Hr 98.1 F-99.1 F 78-101 20-20 110-131/58-90 100 Code(s): I10 - ESSENTIAL (PRIMARY) HYPERTENSION (8) Obstructive nephropathy Assessment/Plan: Operative Date: 09/10/19 Pre-Operative Diagnosis: left ureteral stone with high grade obstruction; gram negative sepsis; acute renal injury Operation: cystoscopy/left retrograde pyelogram/left ureteroscopic stone manipulation and stent placement. Findings: high grade hydronephrosis with obstructing 1+ ureteral stone Post-Operative Diagnosis: Same as Pre-op Surgeon: Tyrell Little Code(s): N13.8 - OTHER OBSTRUCTIVE AND REFLUX UROPATHY
[2019-09-16] MEDS: DIGOXIN 0.25 MG TABLET (FP) PO SCH (09:18)
[2019-09-16] MEDS: FINASTERIDE 5 MG TABLET (FP) PO SCH (09:18)
[2019-09-16] MEDS: HYDROCORTISONE 1% TOPICAL OINT 30 GM TUBE TP SCH (09:19)
[2019-09-16] MEDS: LIDOCAINE HCL 5% TOP OINTMENT 50 GM TUBE TP SCH ×2 (09:19→21:15)
[2019-09-16] MEDS: TAMSULOSIN HCL 0.4 MG CAP PO SCH (09:19)
[2019-09-16] MEDS: CLOPIDOGREL BISULFATE 75 MG TABLET (FP) PO SCH (09:19)
[2019-09-16] MEDS: POLYETHYLENE GLYCOL 3350 119 GM BTL PO SCH ×2 (09:20→22:18)
--- NOTE | 2019-09-16 10:52 | PN ---
Progress Note (short form) - Note Progress Note: s: no chest pain, palps, dizziness, dyspnea Current Medications Generic Name Dose Route Start Last Admin Trade Name Freq PRN Reason Stop Dose Admin Acetaminophen 650 mg 09/12/19 14:50 09/16/19 09:19 Tylenol - PO 650 mg Q4H PRN Administration FEVER Al Hydroxide/Mg Hydroxide 30 ml 09/11/19 20:40 Mylanta Oral Suspension - PO Q6H PRN DYSPEPSIA Atorvastatin Calcium 10 mg 09/11/19 22:00 09/15/19 21:07 Lipitor - PO 10 mg HS [facility] Administration Clopidogrel Bisulfate 75 mg 09/12/19 10:00 09/16/19 09:19 Plavix - PO 75 mg DAILY [facility] Administration Digoxin 0.25 mg 09/14/19 10:00 09/16/19 09:18 Lanoxin - PO 0.25 mg DAILY [facility] Administration Finasteride 5 mg 09/12/19 10:00 09/16/19 09:18 Proscar - PO 5 mg DAILY [facility] Administration Gabapentin 900 mg 09/11/19 22:00 09/16/19 05:55 Neurontin - PO 900 mg TID [facility] Administration Hydrocortisone 1 applic 09/14/19 22:00 09/16/19 09:19 Hytone 1% Ointment - TP 1 applic BID [facility] Administration Cefazolin Sodium/Dextrose 2 gm in 50 mls @ 100 mls/hr 09/15/19 18:00 09/16/19 09:20 Ancef 2 Gm Premixed Ivpb - IVPB 100 mls/hr Q8H-IV [facility] Administration Insulin Aspart 1 vial 09/11/19 22:00 09/16/19 06:55 Novolog Vial Sliding Scale - SQ 4 units ACHS [facility] Administration Protocol Lidocaine HCl 1 applic 09/11/19 22:00 09/16/19 09:19 Xylocaine 5% Top. Ointment TP 1 applic BID [facility] Administration Melatonin 10 mg 09/11/19 22:00 09/15/19 21:07 Melatonin PO 10 mg HS [facility] Administration Methylnaltrexone [place] 12 mg 09/12/19 10:00 09/15/19 09:26 Relistor - SQ Not Given DAILY [facility] Metoprolol Succinate 50 mg 09/12/19 22:00 09/16/19 09:18 Toprol Xl - PO 50 mg BID [facility] Administration Ondansetron HCl 4 mg 09/11/19 20:40 Zofran Injection IVPUSH Q6H PRN NAUSEA AND/OR VOMITING Oxycodone HCl 30 mg 09/11/19 20:40 09/16/19 09:16 Roxicodone - PO 30 mg Q6H PRN Administration PAIN LEVEL 7 - 10 Phenazopyridine HCl 100 mg 09/11/19 22:00 09/16/19 05:55 Pyridium - PO 100 mg TID [facility] Administration Polyethylene Glycol 17 gm 09/11/19 22:00 09/16/19 09:20 Miralax (For Daily Use) - PO Not Given BID [facility] Promethazine HCl 12.5 mg 09/11/19 20:40 Phenergan Injection - IVPB Q6H PRN NAUSEA-FOR RESCUE AFTER 15 MIN Rivaroxaban 20 mg 09/14/19 18:00 09/15/19 17:27 Xarelto PO 20 mg DAILY@1800 [facility] Administration Tamsulosin HCl 0.4 mg 09/12/19 08:30 09/16/19 09:19 Flomax - PO 0.4 mg DAILY@0830 [facility] Administration Vital Signs Period Temp Pulse Resp BP Sys/Mixon Pulse Ox Last 24 Hr 98.1 F-100.9 F 68-86 18-20 122-147/45-77 97 Constitutional: Yes: No Distress, Calm Respiratory: Yes: CTA Bilaterally nl eff Gastrointestinal: Yes: Soft, Abdomen, Obese Cardiovascular: Yes: Pulse Irregular Heart Sounds: Yes: S1, S2 (iireg) Edema: LLE: 1+, RLE: 1+ Neurological: Yes: Alert, Oriented no jaundice diaphoresis not agitated CBC, BMP 09/16/19 05:56 09/16/19 05:56 Echo 04/29: nl LVSF. RV tds. mild TR. mildly dilated ascending aorta tele: afib, rate controlled cxr: clear lungs ecg: afib 127, nl intervals, nonspec st changes a/p: 64M with chronic AF , s/p PPM at [facility], CAD s/p PCI, remote hx intracranial bleed after a fall many years ago s/p evacuation at [facility] presents to ER with fever afib: -rate controlled, cont home toprol and dig (level ok here) -xarelto resumed cad, remote pci: -stable, no signs acs -cont bb, statin, plavix ppm: -outpt f/u uti, chrystal: -Found to have uti/kidney stone, now s/p cysto/stenting. -cr improving
[2019-09-16] MEDS: Methylnaltrexone Bromide 12 MG/0.6 ML KIT SQ SCH (11:10)
--- NOTE | 2019-09-16 14:26 | PN ---
Progress Note, Physician History of Present Illness: Pt seen and examined at bedside. He is awake and alert. He denies shortness of breath. - Current Medication List Current Medications: Active Medications Acetaminophen (Tylenol -) 650 mg PO Q4H PRN PRN Reason: FEVER Last Admin: 09/16/19 09:19 Dose: 650 mg Documented by: Al Hydroxide/Mg Hydroxide (Mylanta Oral Suspension -) 30 ml PO Q6H PRN PRN Reason: DYSPEPSIA Atorvastatin Calcium (Lipitor -) 10 mg PO HS [facility] Last Admin: 09/15/19 21:07 Dose: 10 mg Documented by: Clopidogrel Bisulfate (Plavix -) 75 mg PO DAILY [facility] Last Admin: 09/16/19 09:19 Dose: 75 mg Documented by: Digoxin (Lanoxin -) 0.25 mg PO DAILY [facility] Last Admin: 09/16/19 09:18 Dose: 0.25 mg Documented by: Finasteride (Proscar -) 5 mg PO DAILY [facility] Last Admin: 09/16/19 09:18 Dose: 5 mg Documented by: Gabapentin (Neurontin -) 900 mg PO TID [facility] Last Admin: 09/16/19 14:13 Dose: 900 mg Documented by: Hydrocortisone (Hytone 1% Ointment -) 1 applic TP BID [facility] Last Admin: 09/16/19 09:19 Dose: 1 applic Documented by: Cefazolin Sodium/Dextrose (Ancef 2 Gm Premixed Ivpb -) 2 gm in 50 mls @ 100 mls/hr IVPB Q8H-IV [facility] Last Admin: 09/16/19 09:20 Dose: 100 mls/hr Documented by: Insulin Aspart (Novolog Vial Sliding Scale -) 1 vial SQ ACHS [facility]; Protocol Last Admin: 09/16/19 11:17 Dose: 4 units Documented by: Lidocaine HCl (Xylocaine 5% Top. Ointment) 1 applic TP BID [facility] Last Admin: 09/16/19 09:19 Dose: 1 applic Documented by: Melatonin (Melatonin) 10 mg PO [facility] Last Admin: 09/15/19 21:07 Dose: 10 mg Documented by: Methylnaltrexone [place] (Relistor -) 12 mg SQ DAILY [facility] Last Admin: 09/16/19 11:10 Dose: Not Given Documented by: Metoprolol Succinate (Toprol Xl -) 50 mg PO BID [facility] Last Admin: 09/16/19 09:18 Dose: 50 mg Documented by: Ondansetron HCl (Zofran Injection) 4 mg IVPUSH Q6H PRN PRN Reason: NAUSEA AND/OR VOMITING Oxycodone HCl (Roxicodone -) 30 mg PO Q6H PRN PRN Reason: PAIN LEVEL 7 - 10 Last Admin: 09/16/19 09:16 Dose: 30 mg Documented by: Phenazopyridine HCl (Pyridium -) 100 mg PO TID [facility] Last Admin: 09/16/19 05:55 Dose: 100 mg Documented by: Polyethylene Glycol (Miralax (For Daily Use) -) 17 gm PO BID [facility] Last Admin: 09/16/19 09:20 Dose: Not Given Documented by: Promethazine HCl (Phenergan Injection -) 12.5 mg IVPB Q6H PRN PRN Reason: NAUSEA-FOR RESCUE AFTER 15 MIN Rivaroxaban (Xarelto) 20 mg PO DAILY@1800 [facility] Last Admin: 09/15/19 17:27 Dose: 20 mg Documented by: Tamsulosin HCl (Flomax -) 0.4 mg PO DAILY@0830 [facility] Last Admin: 09/16/19 09:19 Dose: 0.4 mg Documented by: - Objective Vital Signs: Vital Signs Temperature 98.2 F 09/16/19 14:00 Pulse Rate 81 09/16/19 14:00 Respiratory Rate 18 09/16/19 14:00 Blood Pressure 123/68 09/16/19 14:00 O2 Sat by Pulse Oximetry (%) 97 09/16/19 09:00 Constitutional: Yes: Calm Eyes: Yes: Conjunctiva Clear HENT: Yes: Atraumatic Neck: Yes: Supple Cardiovascular: Yes: S1, S2 Respiratory: Yes: CTA Bilaterally Gastrointestinal: Yes: Soft, Abdomen, Obese Genitourinary: Yes: WNL Musculoskeletal: Yes: WNL Edema: Yes Edema: LLE: Trace, RLE: Trace Neurological: Yes: Oriented Psychiatric: Yes: Oriented Labs: CBC, BMP 09/16/19 05:56 09/16/19 05:56 INR, PTT INR 2.43 (0.83-1.09) H 09/10/19 08:11 Problem List - Problems (1) JANETT (acute kidney injury) Code(s): N17.9 - ACUTE KIDNEY FAILURE, UNSPECIFIED (2) CHF (congestive heart failure) Code(s): I50.9 - HEART FAILURE, UNSPECIFIED (3) COPD (chronic obstructive pulmonary disease) Code(s): J44.9 - CHRONIC OBSTRUCTIVE PULMONARY DISEASE, UNSPECIFIED (4) Lactic acidosis Code(s): E87.2 - ACIDOSIS Assessment/Plan Current Medications Generic Name Dose Route Start Last Admin Trade Name Freq PRN Reason Stop Dose Admin Acetaminophen 650 mg 09/12/19 14:50 09/16/19 09:19 Tylenol - PO 650 mg Q4H PRN Administration FEVER Al Hydroxide/Mg Hydroxide 30 ml 09/11/19 20:40 Mylanta Oral Suspension - PO Q6H PRN DYSPEPSIA Atorvastatin Calcium 10 mg 09/11/19 22:00 09/15/19 21:07 Lipitor - PO 10 mg HS [facility] Administration Clopidogrel Bisulfate 75 mg 09/12/19 10:00 09/16/19 09:19 Plavix - PO 75 mg DAILY [facility] Administration Digoxin 0.25 mg 09/14/19 10:00 09/16/19 09:18 Lanoxin - PO 0.25 mg DAILY [facility] Administration Finasteride 5 mg 09/12/19 10:00 09/16/19 09:18 Proscar - PO 5 mg DAILY [facility] Administration Gabapentin 900 mg 09/11/19 22:00 09/16/19 14:13 Neurontin - PO 900 mg TID [facility] Administration Hydrocortisone 1 applic 09/14/19 22:00 09/16/19 09:19 Hytone 1% Ointment - TP 1 applic BID [facility] Administration Cefazolin Sodium/Dextrose 2 gm in 50 mls @ 100 mls/hr 09/15/19 18:00 09/16/19 09:20 Ancef 2 Gm Premixed Ivpb - IVPB 100 mls/hr Q8H-IV [facility] Administration Insulin Aspart 1 vial 09/11/19 22:00 09/16/19 11:17 Novolog Vial Sliding Scale - SQ 4 units ACHS [facility] Administration Protocol Lidocaine HCl 1 applic 09/11/19 22:00 09/16/19 09:19 Xylocaine 5% Top. Ointment TP 1 applic BID [facility] Administration Melatonin 10 mg 09/11/19 22:00 09/15/19 21:07 Melatonin PO 10 mg HS [facility] Administration Methylnaltrexone [place] 12 mg 09/12/19 10:00 09/16/19 11:10 Relistor - SQ Not Given DAILY [facility] Metoprolol Succinate 50 mg 09/12/19 22:00 09/16/19 09:18 Toprol Xl - PO 50 mg BID [facility] Administration Ondansetron HCl 4 mg 09/11/19 20:40 Zofran Injection IVPUSH Q6H PRN NAUSEA AND/OR VOMITING Oxycodone HCl 30 mg 09/11/19 20:40 09/16/19 09:16 Roxicodone - PO 30 mg Q6H PRN Administration PAIN LEVEL 7 - 10 Phenazopyridine HCl 100 mg 09/11/19 22:00 09/16/19 05:55 Pyridium - PO 100 mg TID [facility] Administration Polyethylene Glycol 17 gm 09/11/19 22:00 09/16/19 09:20 Miralax (For Daily Use) - PO Not Given BID [facility] Promethazine HCl 12.5 mg 09/11/19 20:40 Phenergan Injection - IVPB Q6H PRN NAUSEA-FOR RESCUE AFTER 15 MIN Rivaroxaban 20 mg 09/14/19 18:00 09/15/19 17:27 Xarelto PO 20 mg DAILY@1800 [facility] Administration Tamsulosin HCl 0.4 mg 09/12/19 08:30 09/16/19 09:19 Flomax - PO 0.4 mg DAILY@0830 [facility] Administration Impression 1. JANETT 2. lactic acidosis 3. sepsis 4. chf 5. hld 6. hx htn 7. nephrolithiasis 8. shock 9. hydronephrosis 10. obesity 11. copd Plan - cont to monitor renal function - will hold off lasix for now - pt has been off of fluids - monitor for fever - monitor bp - lactic acid is improved - renal function is stable
[2019-09-16] MEDS: RIVAROXABAN 20 MG TABLET PO SCH (17:31)
[2019-09-16] MEDS: MELATONIN 5 MG TABLETS PO SCH (21:11)
[2019-09-16] MEDS: ATORVASTATIN CA 10 MG TABLET (FP) PO SCH (21:14)
--- NOTE | 2019-09-16 22:25 | PN ---
Progress Note, Physician History of Present Illness: REPEAT BC NO GROWTH AWAKE, ALERT IN BED REPORTS LESS L FLANK PAIN LEUKOCYTOSIS IMPROVED WNL AZOTEMIA IMPROVED BC E COLI - Current Medication List Current Medications: Active Medications Acetaminophen (Tylenol -) 650 mg PO Q4H PRN PRN Reason: FEVER Last Admin: 09/16/19 21:11 Dose: 650 mg Documented by: Al Hydroxide/Mg Hydroxide (Mylanta Oral Suspension -) 30 ml PO Q6H PRN PRN Reason: DYSPEPSIA Atorvastatin Calcium (Lipitor -) 10 mg PO HS [facility] Last Admin: 09/16/19 21:14 Dose: 10 mg Documented by: Clopidogrel Bisulfate (Plavix -) 75 mg PO DAILY [facility] Last Admin: 09/16/19 09:19 Dose: 75 mg Documented by: Digoxin (Lanoxin -) 0.25 mg PO DAILY [facility] Last Admin: 09/16/19 09:18 Dose: 0.25 mg Documented by: Finasteride (Proscar -) 5 mg PO DAILY [facility] Last Admin: 09/16/19 09:18 Dose: 5 mg Documented by: Gabapentin (Neurontin -) 900 mg PO TID [facility] Last Admin: 09/16/19 21:14 Dose: 900 mg Documented by: Hydrocortisone (Hytone 1% Ointment -) 1 applic TP BID [facility] Last Admin: 09/16/19 09:19 Dose: 1 applic Documented by: Cefazolin Sodium/Dextrose (Ancef 2 Gm Premixed Ivpb -) 2 gm in 50 mls @ 100 mls/hr IVPB Q8H-IV [facility] Last Admin: 09/16/19 17:31 Dose: 100 mls/hr Documented by: Insulin Aspart (Novolog Vial Sliding Scale -) 1 vial SQ ACHS [facility]; Protocol Last Admin: 09/16/19 22:18 Dose: 4 units Documented by: Lidocaine HCl (Xylocaine 5% Top. Ointment) 1 applic TP BID [facility] Last Admin: 09/16/19 21:15 Dose: 1 applic Documented by: Melatonin (Melatonin) 10 mg PO [facility] Last Admin: 09/16/19 21:11 Dose: 10 mg Documented by: Methylnaltrexone [place] (Relistor -) 12 mg SQ DAILY [facility] Last Admin: 09/16/19 11:10 Dose: Not Given Documented by: Metoprolol Succinate (Toprol Xl -) 50 mg PO BID [facility] Last Admin: 09/16/19 21:14 Dose: 50 mg Documented by: Ondansetron HCl (Zofran Injection) 4 mg IVPUSH Q6H PRN PRN Reason: NAUSEA AND/OR VOMITING Oxycodone HCl (Roxicodone -) 30 mg PO Q6H PRN PRN Reason: PAIN LEVEL 7 - 10 Last Admin: 09/16/19 21:15 Dose: 30 mg Documented by: Phenazopyridine HCl (Pyridium -) 100 mg PO TID [facility] Last Admin: 09/16/19 21:10 Dose: 100 mg Documented by: Polyethylene Glycol (Miralax (For Daily Use) -) 17 gm PO BID [facility] Last Admin: 09/16/19 22:18 Dose: Not Given Documented by: Promethazine HCl (Phenergan Injection -) 12.5 mg IVPB Q6H PRN PRN Reason: NAUSEA-FOR RESCUE AFTER 15 MIN Rivaroxaban (Xarelto) 20 mg PO DAILY@1800 [facility] Last Admin: 09/16/19 17:31 Dose: 20 mg Documented by: Tamsulosin HCl (Flomax -) 0.4 mg PO DAILY@0830 [facility] Last Admin: 09/16/19 09:19 Dose: 0.4 mg Documented by: - Objective Vital Signs: Vital Signs Temperature 99.7 F H 09/16/19 18:00 Pulse Rate 72 09/16/19 18:00 Respiratory Rate 20 09/16/19 18:00 Blood Pressure 150/75 09/16/19 18:00 O2 Sat by Pulse Oximetry (%) 97 09/16/19 09:00 Constitutional: Yes: No Distress, Obese Cardiovascular: Yes: Regular Rate and Rhythm, S1, S2 Respiratory: Yes: CTA Bilaterally Gastrointestinal: Yes: Normal Bowel Sounds, Soft Edema: No Labs: CBC, BMP 09/16/19 05:56 09/16/19 05:56 INR, PTT INR 2.43 (0.83-1.09) H 09/10/19 08:11 Assessment/Plan GRAM NEGATIVE BACTEREMIA/ SEPSIS E COLI LEUKOCYTOSIS IMPROVED AZOTEMIA IMPROVED CONTINUE CEFAZOLIN INCREASED 2GM IVPB Q8H FOR IMPROVED RENAL FUNCTION
[2019-09-17] MEDS: CEFAZOLIN 2 GM/D5W 2 GM/50 ML ML IVPB SCH ×3 (02:22→18:07)
[2019-09-17] MEDS: ACETAMINOPHEN 325 MG TABLET (FP) PO PRN ×3 (03:10→21:31)
[2019-09-17] MEDS: oxyCODONE HCL 5 MG TABLET PO PRN ×4 (03:10→22:11)
[2019-09-17] MEDS: HYDROCORTISONE 1% TOPICAL OINT 30 GM TUBE TP SCH ×3 (03:12→21:32)
[2019-09-17] MEDS: INSULIN SLIDING SCALE (NOVOLOG) 1 VIAL SQ SCH ×4 (06:38→21:32)
[2019-09-17] MEDS: GABAPENTIN 300 MG CAPSULE PO SCH ×3 (06:39→21:30)
[2019-09-17] MEDS: PHENAZOPYRIDINE HCL 100 MG TABLET (FP) PO SCH ×3 (06:39→21:30)
[2019-09-17] MEDS: FINASTERIDE 5 MG TABLET (FP) PO SCH (09:15)
[2019-09-17] MEDS: TAMSULOSIN HCL 0.4 MG CAP PO SCH (09:16)
[2019-09-17] MEDS: DIGOXIN 0.25 MG TABLET (FP) PO SCH (09:16)
[2019-09-17] MEDS: CLOPIDOGREL BISULFATE 75 MG TABLET (FP) PO SCH (09:16)
[2019-09-17] MEDS: Methylnaltrexone Bromide 12 MG/0.6 ML KIT SQ SCH (09:25)
[2019-09-17] MEDS: POLYETHYLENE GLYCOL 3350 119 GM BTL PO SCH ×2 (09:25→21:31)
[2019-09-17] MEDS: LIDOCAINE HCL 5% TOP OINTMENT 50 GM TUBE TP SCH ×2 (09:28→21:32)
--- NOTE | 2019-09-17 10:46 | PN ---
Progress Note, Physician - Current Medication List Current Medications: Active Medications Acetaminophen (Tylenol -) 650 mg PO Q4H PRN PRN Reason: FEVER Last Admin: 09/17/19 03:10 Dose: 650 mg Documented by: Al Hydroxide/Mg Hydroxide (Mylanta Oral Suspension -) 30 ml PO Q6H PRN PRN Reason: DYSPEPSIA Atorvastatin Calcium (Lipitor -) 10 mg PO [facility] Last Admin: 09/16/19 21:14 Dose: 10 mg Documented by: Clopidogrel Bisulfate (Plavix -) 75 mg PO DAILY [facility] Last Admin: 09/17/19 09:16 Dose: 75 mg Documented by: Digoxin (Lanoxin -) 0.25 mg PO DAILY [facility] Last Admin: 09/17/19 09:16 Dose: 0.25 mg Documented by: Finasteride (Proscar -) 5 mg PO DAILY [facility] Last Admin: 09/17/19 09:15 Dose: 5 mg Documented by: Gabapentin (Neurontin -) 900 mg PO TID [facility] Last Admin: 09/17/19 06:39 Dose: 900 mg Documented by: Hydrocortisone (Hytone 1% Ointment -) 1 applic TP BID [facility] Last Admin: 09/17/19 09:28 Dose: 1 applic Documented by: Cefazolin Sodium/Dextrose (Ancef 2 Gm Premixed Ivpb -) 2 gm in 50 mls @ 100 mls/hr IVPB Q8H-IV [facility] Last Admin: 09/17/19 09:17 Dose: 100 mls/hr Documented by: Insulin Aspart (Novolog Vial Sliding Scale -) 1 vial SQ ACHS [facility]; Protocol Last Admin: 09/17/19 06:38 Dose: 2 units Documented by: Lidocaine HCl (Xylocaine 5% Top. Ointment) 1 applic TP BID [facility] Last Admin: 09/17/19 09:28 Dose: 1 applic Documented by: Melatonin (Melatonin) 10 mg PO [facility] Last Admin: 09/16/19 21:11 Dose: 10 mg Documented by: Methylnaltrexone [place] (Relistor -) 12 mg SQ DAILY [facility] Last Admin: 09/17/19 09:25 Dose: Not Given Documented by: Metoprolol Succinate (Toprol Xl -) 50 mg PO BID [facility] Last Admin: 09/17/19 09:15 Dose: 50 mg Documented by: Ondansetron HCl (Zofran Injection) 4 mg IVPUSH Q6H PRN PRN Reason: NAUSEA AND/OR VOMITING Oxycodone HCl (Roxicodone -) 30 mg PO Q6H PRN PRN Reason: PAIN LEVEL 7 - 10 Last Admin: 09/17/19 09:16 Dose: 30 mg Documented by: Phenazopyridine HCl (Pyridium -) 100 mg PO TID [facility] Last Admin: 09/17/19 06:39 Dose: 100 mg Documented by: Polyethylene Glycol (Miralax (For Daily Use) -) 17 gm PO BID [facility] Last Admin: 09/17/19 09:25 Dose: Not Given Documented by: Promethazine HCl (Phenergan Injection -) 12.5 mg IVPB Q6H PRN PRN Reason: NAUSEA-FOR RESCUE AFTER 15 MIN Rivaroxaban (Xarelto) 20 mg PO DAILY@1800 [facility] Last Admin: 09/16/19 17:31 Dose: 20 mg Documented by: Tamsulosin HCl (Flomax -) 0.4 mg PO DAILY@0830 [facility] Last Admin: 09/17/19 09:16 Dose: 0.4 mg Documented by: - Objective Vital Signs: Vital Signs Temperature 98.1 F 09/17/19 08:42 Pulse Rate 69 09/17/19 09:16 Respiratory Rate 20 09/17/19 08:42 Blood Pressure 153/92 09/17/19 08:42 O2 Sat by Pulse Oximetry (%) 96 09/17/19 08:42 Cardiovascular: Yes: S1, S2 Respiratory: Yes: Regular, CTA Bilaterally Gastrointestinal: Yes: Normal Bowel Sounds, Soft. No: Tenderness Labs: CBC, BMP 09/16/19 05:56 09/16/19 05:56 INR, PTT INR 2.43 (0.83-1.09) H 09/10/19 08:11 Problem List - Problems (1) Sepsis Assessment/Plan: IV ABX ID ON BOARD--follow up Tmax 100.9 Microbiology 09/14/19 10:55 Blood - Peripheral Venous Blood Culture - Preliminary NO GROWTH OBTAINED AFTER 24 HOURS, INCUBATION TO CONTINUE FOR 4 DAYS. 09/14/19 10:48 Blood - Peripheral Venous Blood Culture - Preliminary NO GROWTH OBTAINED AFTER 24 HOURS, INCUBATION TO CONTINUE FOR 4 DAYS. 09/09/19 21:30 Blood - Peripheral Venous Blood Culture - Final Escherichia Coli 09/09/19 21:30 Blood - Peripheral Venous Blood Culture - Final Escherichia Coli 09/09/19 21:30 Urine - Urine - Catheterized Urine Culture - Final Escherichia Coli Code(s): A41.9 - SEPSIS, UNSPECIFIED ORGANISM Qualifiers: Sepsis type: sepsis due to unspecified organism Qualified Code(s): A41.9 - Sepsis, unspecified organism (2) UTI (urinary tract infection) Assessment/Plan: ABOVE Microbiology 09/09/19 21:30 Blood - Peripheral Venous Blood Culture - Final Escherichia Coli 09/09/19 21:30 Blood - Peripheral Venous Blood Culture - Final Escherichia Coli 09/09/19 21:30 Urine - Urine - Catheterized Urine Culture - Final Escherichia Coli Code(s): N39.0 - URINARY TRACT INFECTION, SITE NOT SPECIFIED (3) Atrial fibrillation with RVR Assessment/Plan: Improved rate controlled ON B-BLOCKERS resume xarelto Code(s): I48.91 - UNSPECIFIED ATRIAL FIBRILLATION (4) CHF (congestive heart failure) Code(s): I50.9 - HEART FAILURE, UNSPECIFIED (5) COPD (chronic obstructive pulmonary disease) Assessment/Plan: stable Code(s): J44.9 - CHRONIC OBSTRUCTIVE PULMONARY DISEASE, UNSPECIFIED (6) Diabetes Assessment/Plan: BGM Code(s): E11.9 - TYPE 2 DIABETES MELLITUS WITHOUT COMPLICATIONS Qualifiers: Diabetes mellitus type: type 2 (7) HTN (hypertension) Assessment/Plan: Vital Signs Period Temp Pulse Resp BP Sys/Mixon Pulse Ox Last 24 Hr 98.1 F-99.1 F 78-101 20-20 110-131/58-90 100 Code(s): I10 - ESSENTIAL (PRIMARY) HYPERTENSION (8) Obstructive nephropathy Assessment/Plan: Operative Date: 09/10/19 Pre-Operative Diagnosis: left ureteral stone with high grade obstruction; gram negative sepsis; acute renal injury Operation: cystoscopy/left retrograde pyelogram/left ureteroscopic stone manipulation and stent placement. Findings: high grade hydronephrosis with obstructing 1+ ureteral stone Post-Operative Diagnosis: Same as Pre-op Surgeon: Tyrell Little Code(s): N13.8 - OTHER OBSTRUCTIVE AND REFLUX UROPATHY
--- NOTE | 2019-09-17 11:15 | PN ---
Progress Note (short form) - Note Progress Note: s: no chest pain, palps, dizziness, dyspnea Current Medications Generic Name Dose Route Start Last Admin Trade Name Freq PRN Reason Stop Dose Admin Acetaminophen 650 mg 09/12/19 14:50 09/17/19 03:10 Tylenol - PO 650 mg Q4H PRN Administration FEVER Al Hydroxide/Mg Hydroxide 30 ml 09/11/19 20:40 Mylanta Oral Suspension - PO Q6H PRN DYSPEPSIA Atorvastatin Calcium 10 mg 09/11/19 22:00 09/16/19 21:14 Lipitor - PO 10 mg HS [facility] Administration Clopidogrel Bisulfate 75 mg 09/12/19 10:00 09/17/19 09:16 Plavix - PO 75 mg DAILY [facility] Administration Digoxin 0.25 mg 09/14/19 10:00 09/17/19 09:16 Lanoxin - PO 0.25 mg DAILY [facility] Administration Finasteride 5 mg 09/12/19 10:00 09/17/19 09:15 Proscar - PO 5 mg DAILY [facility] Administration Gabapentin 900 mg 09/11/19 22:00 09/17/19 06:39 Neurontin - PO 900 mg TID [facility] Administration Hydrocortisone 1 applic 09/14/19 22:00 09/17/19 09:28 Hytone 1% Ointment - TP 1 applic BID [facility] Administration Cefazolin Sodium/Dextrose 2 gm in 50 mls @ 100 mls/hr 09/15/19 18:00 09/17/19 09:17 Ancef 2 Gm Premixed Ivpb - IVPB 100 mls/hr Q8H-IV [facility] Administration Insulin Aspart 1 vial 09/11/19 22:00 09/17/19 06:38 Novolog Vial Sliding Scale - SQ 2 units ACHS [facility] Administration Protocol Lidocaine HCl 1 applic 09/11/19 22:00 09/17/19 09:28 Xylocaine 5% Top. Ointment TP 1 applic BID [facility] Administration Melatonin 10 mg 09/11/19 22:00 09/16/19 21:11 Melatonin PO 10 mg HS [facility] Administration Methylnaltrexone [place] 12 mg 09/12/19 10:00 09/17/19 09:25 Relistor - SQ Not Given DAILY [facility] Metoprolol Succinate 50 mg 09/12/19 22:00 09/17/19 09:15 Toprol Xl - PO 50 mg BID [facility] Administration Ondansetron HCl 4 mg 09/11/19 20:40 Zofran Injection IVPUSH Q6H PRN NAUSEA AND/OR VOMITING Oxycodone HCl 30 mg 09/11/19 20:40 09/17/19 09:16 Roxicodone - PO 30 mg Q6H PRN Administration PAIN LEVEL 7 - 10 Phenazopyridine HCl 100 mg 09/11/19 22:00 09/17/19 06:39 Pyridium - PO 100 mg TID [facility] Administration Polyethylene Glycol 17 gm 09/11/19 22:00 09/17/19 09:25 Miralax (For Daily Use) - PO Not Given BID [facility] Promethazine HCl 12.5 mg 09/11/19 20:40 Phenergan Injection - IVPB Q6H PRN NAUSEA-FOR RESCUE AFTER 15 MIN Rivaroxaban 20 mg 09/14/19 18:00 09/16/19 17:31 Xarelto PO 20 mg DAILY@1800 [facility] Administration Tamsulosin HCl 0.4 mg 09/12/19 08:30 09/17/19 09:16 Flomax - PO 0.4 mg DAILY@0830 [facility] Administration Vital Signs Period Temp Pulse Resp BP Sys/Mixon Pulse Ox Last 24 Hr 97.7 F-99.7 F 66-88 18-20 116-153/68-92 96-97 Constitutional: Yes: No Distress, Calm Respiratory: Yes: CTA Bilaterally nl eff Gastrointestinal: Yes: Soft, Abdomen, Obese Cardiovascular: Yes: Pulse Irregular Heart Sounds: Yes: S1, S2 (iireg) Edema: LLE: 1+, RLE: 1+ Neurological: Yes: Alert, Oriented no jaundice diaphoresis not agitated CBC, BMP 09/16/19 05:56 09/16/19 05:56 Echo 04/29: nl LVSF. RV tds. mild TR. mildly dilated ascending aorta cxr: clear lungs ecg: afib 127, nl intervals, nonspec st changes a/p: 64M with chronic AF , s/p PPM at [facility], CAD s/p PCI, remote hx intracranial bleed after a fall many years ago s/p evacuation at [facility] presents to ER with fever afib: -rate controlled, cont home toprol and dig (level ok here) -xarelto resumed cad, remote pci: -stable, no signs acs -cont bb, statin, plavix ppm: -outpt f/u uti, chrystal: -Found to have uti/kidney stone, now s/p cysto/stenting. -cr improving
[2019-09-17] MEDS ORDERED: FUROSEMIDE 40 MG TABLET (FP) PO ONE (12:55)
--- NOTE | 2019-09-17 12:55 | PN ---
Progress Note, Physician History of Present Illness: Pt seen and examined at bedside. He complains of edema. - Current Medication List Current Medications: Active Medications Acetaminophen (Tylenol -) 650 mg PO Q4H PRN PRN Reason: FEVER Last Admin: 09/17/19 03:10 Dose: 650 mg Documented by: Al Hydroxide/Mg Hydroxide (Mylanta Oral Suspension -) 30 ml PO Q6H PRN PRN Reason: DYSPEPSIA Atorvastatin Calcium (Lipitor -) 10 mg PO [facility] Last Admin: 09/16/19 21:14 Dose: 10 mg Documented by: Clopidogrel Bisulfate (Plavix -) 75 mg PO DAILY [facility] Last Admin: 09/17/19 09:16 Dose: 75 mg Documented by: Digoxin (Lanoxin -) 0.25 mg PO DAILY [facility] Last Admin: 09/17/19 09:16 Dose: 0.25 mg Documented by: Finasteride (Proscar -) 5 mg PO DAILY [facility] Last Admin: 09/17/19 09:15 Dose: 5 mg Documented by: Gabapentin (Neurontin -) 900 mg PO TID [facility] Last Admin: 09/17/19 06:39 Dose: 900 mg Documented by: Hydrocortisone (Hytone 1% Ointment -) 1 applic TP BID [facility] Last Admin: 09/17/19 09:28 Dose: 1 applic Documented by: Cefazolin Sodium/Dextrose (Ancef 2 Gm Premixed Ivpb -) 2 gm in 50 mls @ 100 mls/hr IVPB Q8H-IV [facility] Last Admin: 09/17/19 09:17 Dose: 100 mls/hr Documented by: Insulin Aspart (Novolog Vial Sliding Scale -) 1 vial SQ ACHS [facility]; Protocol Last Admin: 09/17/19 12:04 Dose: 4 units Documented by: Lidocaine HCl (Xylocaine 5% Top. Ointment) 1 applic TP BID [facility] Last Admin: 09/17/19 09:28 Dose: 1 applic Documented by: Melatonin (Melatonin) 10 mg PO [facility] Last Admin: 09/16/19 21:11 Dose: 10 mg Documented by: Methylnaltrexone [place] (Relistor -) 12 mg SQ DAILY [facility] Last Admin: 09/17/19 09:25 Dose: Not Given Documented by: Metoprolol Succinate (Toprol Xl -) 50 mg PO BID [facility] Last Admin: 09/17/19 09:15 Dose: 50 mg Documented by: Ondansetron HCl (Zofran Injection) 4 mg IVPUSH Q6H PRN PRN Reason: NAUSEA AND/OR VOMITING Oxycodone HCl (Roxicodone -) 30 mg PO Q6H PRN PRN Reason: PAIN LEVEL 7 - 10 Last Admin: 09/17/19 09:16 Dose: 30 mg Documented by: Phenazopyridine HCl (Pyridium -) 100 mg PO TID [facility] Last Admin: 09/17/19 06:39 Dose: 100 mg Documented by: Polyethylene Glycol (Miralax (For Daily Use) -) 17 gm PO BID [facility] Last Admin: 09/17/19 09:25 Dose: Not Given Documented by: Promethazine HCl (Phenergan Injection -) 12.5 mg IVPB Q6H PRN PRN Reason: NAUSEA-FOR RESCUE AFTER 15 MIN Rivaroxaban (Xarelto) 20 mg PO DAILY@1800 [facility] Last Admin: 09/16/19 17:31 Dose: 20 mg Documented by: Tamsulosin HCl (Flomax -) 0.4 mg PO DAILY@0830 [facility] Last Admin: 09/17/19 09:16 Dose: 0.4 mg Documented by: - Objective Vital Signs: Vital Signs Temperature 98.1 F 09/17/19 08:42 Pulse Rate 69 09/17/19 09:16 Respiratory Rate 20 09/17/19 08:42 Blood Pressure 153/92 09/17/19 08:42 O2 Sat by Pulse Oximetry (%) 96 09/17/19 09:00 Constitutional: Yes: Calm Eyes: Yes: Conjunctiva Clear HENT: Yes: Atraumatic Neck: Yes: Supple Cardiovascular: Yes: S1, S2 Respiratory: Yes: CTA Bilaterally Gastrointestinal: Yes: Soft Genitourinary: Yes: WNL Musculoskeletal: Yes: WNL Edema: Yes Edema: LLE: Trace, RLE: Trace Neurological: Yes: Oriented Psychiatric: Yes: Oriented Labs: CBC, BMP 09/16/19 05:56 09/16/19 05:56 INR, PTT INR 2.43 (0.83-1.09) H 09/10/19 08:11 Problem List - Problems (1) JANETT (acute kidney injury) Code(s): N17.9 - ACUTE KIDNEY FAILURE, UNSPECIFIED (2) CHF (congestive heart failure) Code(s): I50.9 - HEART FAILURE, UNSPECIFIED (3) COPD (chronic obstructive pulmonary disease) Code(s): J44.9 - CHRONIC OBSTRUCTIVE PULMONARY DISEASE, UNSPECIFIED (4) Lactic acidosis Code(s): E87.2 - ACIDOSIS Assessment/Plan Current Medications Generic Name Dose Route Start Last Admin Trade Name Freq PRN Reason Stop Dose Admin Acetaminophen 650 mg 09/12/19 14:50 09/17/19 03:10 Tylenol - PO 650 mg Q4H PRN Administration FEVER Al Hydroxide/Mg Hydroxide 30 ml 09/11/19 20:40 Mylanta Oral Suspension - PO Q6H PRN DYSPEPSIA Atorvastatin Calcium 10 mg 09/11/19 22:00 09/16/19 21:14 Lipitor - PO 10 mg HS [facility] Administration Clopidogrel Bisulfate 75 mg 09/12/19 10:00 09/17/19 09:16 Plavix - PO 75 mg DAILY [facility] Administration Digoxin 0.25 mg 09/14/19 10:00 09/17/19 09:16 Lanoxin - PO 0.25 mg DAILY [facility] Administration Finasteride 5 mg 09/12/19 10:00 09/17/19 09:15 Proscar - PO 5 mg DAILY [facility] Administration Gabapentin 900 mg 09/11/19 22:00 09/17/19 06:39 Neurontin - PO 900 mg TID [facility] Administration Hydrocortisone 1 applic 09/14/19 22:00 09/17/19 09:28 Hytone 1% Ointment - TP 1 applic BID [facility] Administration Cefazolin Sodium/Dextrose 2 gm in 50 mls @ 100 mls/hr 09/15/19 18:00 09/17/19 09:17 Ancef 2 Gm Premixed Ivpb - IVPB 100 mls/hr Q8H-IV [facility] Administration Insulin Aspart 1 vial 09/11/19 22:00 09/17/19 12:04 Novolog Vial Sliding Scale - SQ 4 units ACHS [facility] Administration Protocol Lidocaine HCl 1 applic 09/11/19 22:00 09/17/19 09:28 Xylocaine 5% Top. Ointment TP 1 applic BID [facility] Administration Melatonin 10 mg 09/11/19 22:00 09/16/19 21:11 Melatonin PO 10 mg HS [facility] Administration Methylnaltrexone [place] 12 mg 09/12/19 10:00 09/17/19 09:25 Relistor - SQ Not Given DAILY [facility] Metoprolol Succinate 50 mg 09/12/19 22:00 09/17/19 09:15 Toprol Xl - PO 50 mg BID [facility] Administration Ondansetron HCl 4 mg 09/11/19 20:40 Zofran Injection IVPUSH Q6H PRN NAUSEA AND/OR VOMITING Oxycodone HCl 30 mg 09/11/19 20:40 09/17/19 09:16 Roxicodone - PO 30 mg Q6H PRN Administration PAIN LEVEL 7 - 10 Phenazopyridine HCl 100 mg 09/11/19 22:00 09/17/19 06:39 Pyridium - PO 100 mg TID [facility] Administration Polyethylene Glycol 17 gm 09/11/19 22:00 09/17/19 09:25 Miralax (For Daily Use) - PO Not Given BID [facility] Promethazine HCl 12.5 mg 09/11/19 20:40 Phenergan Injection - IVPB Q6H PRN NAUSEA-FOR RESCUE AFTER 15 MIN Rivaroxaban 20 mg 09/14/19 18:00 09/16/19 17:31 Xarelto PO 20 mg DAILY@1800 [facility] Administration Tamsulosin HCl 0.4 mg 09/12/19 08:30 09/17/19 09:16 Flomax - PO 0.4 mg DAILY@0830 [facility] Administration Impression 1. JANETT 2. lactic acidosis 3. sepsis 4. chf 5. hld 6. hx htn 7. nephrolithiasis 8. shock 9. hydronephrosis 10. obesity 11. copd Plan - renal function is stable - will give a dose of lasix - monitor for fever - monitor renal function - vp product management had improved - will follow prn
--- NOTE | 2019-09-17 17:10 | PN ---
Progress Note, Physician History of Present Illness: AWAKE, ALERT IN BED NO C/O L FLANK PAIN LEUKOCYTOSIS IMPROVED WNL AZOTEMIA IMPROVED BC E COLI - Current Medication List Current Medications: Active Medications Acetaminophen (Tylenol -) 650 mg PO Q4H PRN PRN Reason: FEVER Last Admin: 09/17/19 15:17 Dose: 650 mg Documented by: Al Hydroxide/Mg Hydroxide (Mylanta Oral Suspension -) 30 ml PO Q6H PRN PRN Reason: DYSPEPSIA Atorvastatin Calcium (Lipitor -) 10 mg PO HS [facility] Last Admin: 09/16/19 21:14 Dose: 10 mg Documented by: Clopidogrel Bisulfate (Plavix -) 75 mg PO DAILY [facility] Last Admin: 09/17/19 09:16 Dose: 75 mg Documented by: Digoxin (Lanoxin -) 0.25 mg PO DAILY [facility] Last Admin: 09/17/19 09:16 Dose: 0.25 mg Documented by: Finasteride (Proscar -) 5 mg PO DAILY [facility] Last Admin: 09/17/19 09:15 Dose: 5 mg Documented by: Gabapentin (Neurontin -) 900 mg PO TID [facility] Last Admin: 09/17/19 13:38 Dose: 900 mg Documented by: Hydrocortisone (Hytone 1% Ointment -) 1 applic TP BID [facility] Last Admin: 09/17/19 09:28 Dose: 1 applic Documented by: Cefazolin Sodium/Dextrose (Ancef 2 Gm Premixed Ivpb -) 2 gm in 50 mls @ 100 mls/hr IVPB Q8H-IV [facility] Last Admin: 09/17/19 09:17 Dose: 100 mls/hr Documented by: Insulin Aspart (Novolog Vial Sliding Scale -) 1 vial SQ ACHS [facility]; Protocol Last Admin: 09/17/19 12:04 Dose: 4 units Documented by: Lidocaine HCl (Xylocaine 5% Top. Ointment) 1 applic TP BID [facility] Last Admin: 09/17/19 09:28 Dose: 1 applic Documented by: Melatonin (Melatonin) 10 mg PO [facility] Last Admin: 09/16/19 21:11 Dose: 10 mg Documented by: Methylnaltrexone [place] (Relistor -) 12 mg SQ DAILY [facility] Last Admin: 09/17/19 09:25 Dose: Not Given Documented by: Metoprolol Succinate (Toprol Xl -) 50 mg PO BID [facility] Last Admin: 09/17/19 09:15 Dose: 50 mg Documented by: Ondansetron HCl (Zofran Injection) 4 mg IVPUSH Q6H PRN PRN Reason: NAUSEA AND/OR VOMITING Oxycodone HCl (Roxicodone -) 30 mg PO Q6H PRN PRN Reason: PAIN LEVEL 7 - 10 Last Admin: 09/17/19 15:18 Dose: 30 mg Documented by: Phenazopyridine HCl (Pyridium -) 100 mg PO TID [facility] Last Admin: 09/17/19 13:48 Dose: 100 mg Documented by: Polyethylene Glycol (Miralax (For Daily Use) -) 17 gm PO BID [facility] Last Admin: 09/17/19 09:25 Dose: Not Given Documented by: Promethazine HCl (Phenergan Injection -) 12.5 mg IVPB Q6H PRN PRN Reason: NAUSEA-FOR RESCUE AFTER 15 MIN Rivaroxaban (Xarelto) 20 mg PO DAILY@1800 [facility] Last Admin: 09/16/19 17:31 Dose: 20 mg Documented by: Tamsulosin HCl (Flomax -) 0.4 mg PO DAILY@0830 [facility] Last Admin: 09/17/19 09:16 Dose: 0.4 mg Documented by: - Objective Vital Signs: Vital Signs Temperature 99.2 F 09/17/19 15:30 Pulse Rate 78 09/17/19 13:05 Respiratory Rate 20 09/17/19 13:05 Blood Pressure 127/81 09/17/19 13:05 O2 Sat by Pulse Oximetry (%) 94 L 09/17/19 13:05 Constitutional: Yes: No Distress, Obese Cardiovascular: Yes: Regular Rate and Rhythm, S1, S2 Respiratory: Yes: CTA Bilaterally Gastrointestinal: Yes: Normal Bowel Sounds, Soft. No: Tenderness Edema: Yes Labs: CBC, BMP 09/16/19 05:56 09/16/19 05:56 INR, PTT INR 2.43 (0.83-1.09) H 09/10/19 08:11 Assessment/Plan GRAM NEGATIVE BACTEREMIA/ SEPSIS E COLI LEUKOCYTOSIS IMPROVED AZOTEMIA IMPROVED CONTINUE CEFAZOLIN INCREASED 2GM IVPB Q8H FOR IMPROVED RENAL FUNCTION COMPLETE 10-14 IV ANTIBIOTIC THERAPY PT/OOB
[2019-09-17] MEDS: RIVAROXABAN 20 MG TABLET PO SCH (18:07)
[2019-09-17] MEDS: MELATONIN 5 MG TABLETS PO SCH (21:30)
[2019-09-17] MEDS: ATORVASTATIN CA 10 MG TABLET (FP) PO SCH (21:30)
[2019-09-17] MEDS ORDERED: oxyCODONE HCL 5 MG TABLET PO PRN (21:54)
[2019-09-18] MEDS: CEFAZOLIN 2 GM/D5W 2 GM/50 ML ML IVPB SCH ×3 (01:55→17:01)
[2019-09-18] MEDS: oxyCODONE HCL 5 MG TABLET PO PRN ×4 (04:00→21:37)
[2019-09-18] MEDS: GABAPENTIN 300 MG CAPSULE PO SCH ×3 (06:47→21:38)
[2019-09-18] MEDS: INSULIN SLIDING SCALE (NOVOLOG) 1 VIAL SQ SCH ×4 (06:48→21:37)
[2019-09-18] MEDS: PHENAZOPYRIDINE HCL 100 MG TABLET (FP) PO SCH ×3 (06:48→21:40)
[2019-09-18] MEDS ORDERED: PT OWN MED DRAWER 7, Y5N ONE (09:05)
[2019-09-18] MEDS: FINASTERIDE 5 MG TABLET (FP) PO SCH (09:14)
[2019-09-18] MEDS: DIGOXIN 0.25 MG TABLET (FP) PO SCH (09:14)
[2019-09-18] MEDS: TAMSULOSIN HCL 0.4 MG CAP PO SCH (09:14)
[2019-09-18] MEDS: CLOPIDOGREL BISULFATE 75 MG TABLET (FP) PO SCH (09:15)
[2019-09-18] MEDS: POLYETHYLENE GLYCOL 3350 119 GM BTL PO SCH ×2 (09:15→21:41)
[2019-09-18] MEDS: Methylnaltrexone Bromide 12 MG/0.6 ML KIT SQ SCH (09:15)
[2019-09-18] MEDS: LIDOCAINE HCL 5% TOP OINTMENT 50 GM TUBE TP SCH ×2 (09:22→21:40)
[2019-09-18] MEDS: HYDROCORTISONE 1% TOPICAL OINT 30 GM TUBE TP SCH ×2 (09:22→21:41)
[2019-09-18] MEDS: ACETAMINOPHEN 325 MG TABLET (FP) PO PRN ×3 (10:14→21:39)
--- NOTE | 2019-09-18 11:03 | PN ---
Progress Note (short form) - Note Progress Note: s: no chest pain, palps, dizziness, dyspnea Current Medications Generic Name Dose Route Start Last Admin Trade Name Freq PRN Reason Stop Dose Admin Acetaminophen 650 mg 09/12/19 14:50 09/18/19 10:14 Tylenol - PO 650 mg Q4H PRN Administration FEVER Al Hydroxide/Mg Hydroxide 30 ml 09/11/19 20:40 Mylanta Oral Suspension - PO Q6H PRN DYSPEPSIA Atorvastatin Calcium 10 mg 09/11/19 22:00 09/17/19 21:30 Lipitor - PO 10 mg HS [facility] Administration Clopidogrel Bisulfate 75 mg 09/12/19 10:00 09/18/19 09:15 Plavix - PO 75 mg DAILY [facility] Administration Digoxin 0.25 mg 09/14/19 10:00 09/18/19 09:14 Lanoxin - PO 0.25 mg DAILY [facility] Administration Finasteride 5 mg 09/12/19 10:00 09/18/19 09:14 Proscar - PO 5 mg DAILY [facility] Administration Gabapentin 900 mg 09/11/19 22:00 09/18/19 06:47 Neurontin - PO 900 mg TID [facility] Administration Hydrocortisone 1 applic 09/14/19 22:00 09/18/19 09:22 Hytone 1% Ointment - TP 1 applic BID [facility] Administration Cefazolin Sodium/Dextrose 2 gm in 50 mls @ 100 mls/hr 09/15/19 18:00 09/18/19 09:21 Ancef 2 Gm Premixed Ivpb - IVPB 100 mls/hr Q8H-IV [facility] Administration Insulin Aspart 1 vial 09/11/19 22:00 09/18/19 06:48 Novolog Vial Sliding Scale - SQ 4 units ACHS [facility] Administration Protocol Lidocaine HCl 1 applic 09/11/19 22:00 09/18/19 09:22 Xylocaine 5% Top. Ointment TP 1 applic BID [facility] Administration Melatonin 10 mg 09/11/19 22:00 09/17/19 21:30 Melatonin PO 10 mg HS [facility] Administration Methylnaltrexone [place] 12 mg 09/12/19 10:00 09/18/19 09:15 Relistor - SQ Not Given DAILY [facility] Metoprolol Succinate 50 mg 09/12/19 22:00 09/18/19 09:14 Toprol Xl - PO 50 mg BID [facility] Administration Ondansetron HCl 4 mg 09/11/19 20:40 Zofran Injection IVPUSH Q6H PRN NAUSEA AND/OR VOMITING Oxycodone HCl 30 mg 09/17/19 22:02 09/18/19 09:13 Roxicodone - PO 30 mg Q6H PRN Administration PAIN LEVEL 6-10 Phenazopyridine HCl 100 mg 09/11/19 22:00 09/18/19 06:48 Pyridium - PO 100 mg TID [facility] Administration Polyethylene Glycol 17 gm 09/11/19 22:00 09/18/19 09:15 Miralax (For Daily Use) - PO Not Given BID [facility] Promethazine HCl 12.5 mg 09/11/19 20:40 Phenergan Injection - IVPB Q6H PRN NAUSEA-FOR RESCUE AFTER 15 MIN Rivaroxaban 20 mg 09/14/19 18:00 09/17/19 18:07 Xarelto PO 20 mg DAILY@1800 [facility] Administration Tamsulosin HCl 0.4 mg 09/12/19 08:30 09/18/19 09:14 Flomax - PO 0.4 mg DAILY@0830 [facility] Administration Vital Signs Period Temp Pulse Resp BP Sys/Mixon Pulse Ox Last 24 Hr 97.9 F-99.6 F 61-88 18-20 127-150/72-87 94-97 Constitutional: Yes: No Distress, Calm Respiratory: Yes: CTA Bilaterally nl eff Gastrointestinal: Yes: Soft, Abdomen, Obese Cardiovascular: Yes: Pulse Irregular Heart Sounds: Yes: S1, S2 (iireg) Edema: LLE: 1+, RLE: 1+ Neurological: Yes: Alert, Oriented no jaundice diaphoresis not agitated CBC, BMP 09/16/19 05:56 09/16/19 05:56 Echo 04/29: nl LVSF. RV tds. mild TR. mildly dilated ascending aorta cxr: clear lungs ecg: afib 127, nl intervals, nonspec st changes a/p: 64M with chronic AF , s/p PPM at [facility], CAD s/p PCI, remote hx intracranial bleed after a fall many years ago s/p evacuation at [facility] presents to ER with fever afib: -rate controlled, cont home toprol and dig (level ok here) -xarelto resumed cad, remote pci: -stable, no signs acs -cont bb, statin, plavix ppm: -outpt f/u uti, chrystal: -Found to have uti/kidney stone, now s/p cysto/stenting. -cr improving le edema: -got po lasix yesterday, still with le edema, will start lasix 40 po qd
[2019-09-18] MEDS: FUROSEMIDE 40 MG TABLET (FP) PO SCH (11:17)
--- NOTE | 2019-09-18 14:22 | PN ---
Progress Note, Physician Chief Complaint: EVENTS AND NOTES REVIEWED PATIENT IN BED DENIES CHEST PAIN OR SOB LABS AND MEDS REVIEWED - Current Medication List Current Medications: Active Medications Acetaminophen (Tylenol -) 650 mg PO Q4H PRN PRN Reason: FEVER Last Admin: 09/18/19 10:14 Dose: 650 mg Documented by: Al Hydroxide/Mg Hydroxide (Mylanta Oral Suspension -) 30 ml PO Q6H PRN PRN Reason: DYSPEPSIA Atorvastatin Calcium (Lipitor -) 10 mg PO HS [facility] Last Admin: 09/17/19 21:30 Dose: 10 mg Documented by: Clopidogrel Bisulfate (Plavix -) 75 mg PO DAILY [facility] Last Admin: 09/18/19 09:15 Dose: 75 mg Documented by: Digoxin (Lanoxin -) 0.25 mg PO DAILY [facility] Last Admin: 09/18/19 09:14 Dose: 0.25 mg Documented by: Finasteride (Proscar -) 5 mg PO DAILY [facility] Last Admin: 09/18/19 09:14 Dose: 5 mg Documented by: Furosemide (Lasix -) 40 mg PO DAILY [facility] Last Admin: 09/18/19 11:17 Dose: 40 mg Documented by: Gabapentin (Neurontin -) 900 mg PO TID [facility] Last Admin: 09/18/19 06:47 Dose: 900 mg Documented by: Hydrocortisone (Hytone 1% Ointment -) 1 applic TP BID [facility] Last Admin: 09/18/19 09:22 Dose: 1 applic Documented by: Cefazolin Sodium/Dextrose (Ancef 2 Gm Premixed Ivpb -) 2 gm in 50 mls @ 100 mls/hr IVPB Q8H-IV [facility] Last Admin: 09/18/19 09:21 Dose: 100 mls/hr Documented by: Insulin Aspart (Novolog Vial Sliding Scale -) 1 vial SQ ACHS [facility]; Protocol Last Admin: 09/18/19 11:17 Dose: 4 units Documented by: Lidocaine HCl (Xylocaine 5% Top. Ointment) 1 applic TP BID [facility] Last Admin: 09/18/19 09:22 Dose: 1 applic Documented by: Melatonin (Melatonin) 10 mg PO HS [facility] Last Admin: 09/17/19 21:30 Dose: 10 mg Documented by: Methylnaltrexone [place] (Relistor -) 12 mg SQ DAILY [facility] Last Admin: 09/18/19 09:15 Dose: Not Given Documented by: Metoprolol Succinate (Toprol Xl -) 50 mg PO BID [facility] Last Admin: 09/18/19 09:14 Dose: 50 mg Documented by: Ondansetron HCl (Zofran Injection) 4 mg IVPUSH Q6H PRN PRN Reason: NAUSEA AND/OR VOMITING Oxycodone HCl (Roxicodone -) 30 mg PO Q6H PRN PRN Reason: PAIN LEVEL 6-10 Last Admin: 09/18/19 09:13 Dose: 30 mg Documented by: Phenazopyridine HCl (Pyridium -) 100 mg PO TID [facility] Last Admin: 09/18/19 06:48 Dose: 100 mg Documented by: Polyethylene Glycol (Miralax (For Daily Use) -) 17 gm PO BID [facility] Last Admin: 09/18/19 09:15 Dose: Not Given Documented by: Promethazine HCl (Phenergan Injection -) 12.5 mg IVPB Q6H PRN PRN Reason: NAUSEA-FOR RESCUE AFTER 15 MIN Rivaroxaban (Xarelto) 20 mg PO DAILY@1800 [facility] Last Admin: 09/17/19 18:07 Dose: 20 mg Documented by: Tamsulosin HCl (Flomax -) 0.4 mg PO DAILY@0830 [facility] Last Admin: 09/18/19 09:14 Dose: 0.4 mg Documented by: - Objective Vital Signs: Vital Signs Temperature 98.8 F 09/18/19 09:38 Pulse Rate 61 09/18/19 09:38 Respiratory Rate 20 09/18/19 09:38 Blood Pressure 136/74 09/18/19 09:38 O2 Sat by Pulse Oximetry (%) 95 09/18/19 09:00 Constitutional: Yes: Mild Distress Cardiovascular: Yes: Pulse Irregular Respiratory: Yes: Diminished Gastrointestinal: Yes: Abdomen, Obese Genitourinary: Yes: Incontinence, Other Musculoskeletal: Yes: Muscle Weakness Edema: Yes Edema: LLE: 2+, RLE: 2+ Integumentary: Yes: Erythema, Rash, Venous Stasis Changes Wound/Incision: Yes: Open to air Neurological: Yes: Pre-Existing Deficit, Unsteady Gait ...Motor Strength: LLE, RLE Psychiatric: Yes: Other Labs: CBC, BMP 09/16/19 05:56 09/16/19 05:56 INR, PTT INR 2.43 (0.83-1.09) H 09/10/19 08:11 Problem List - Problems (1) JANETT (acute kidney injury) Code(s): N17.9 - ACUTE KIDNEY FAILURE, UNSPECIFIED (2) Bacteremia Code(s): R78.81 - BACTEREMIA (3) Obstructive nephropathy Code(s): N13.8 - OTHER OBSTRUCTIVE AND REFLUX UROPATHY (4) Sepsis Code(s): A41.9 - SEPSIS, UNSPECIFIED ORGANISM Qualifiers: Sepsis type: sepsis due to unspecified organism Qualified Code(s): A41.9 - Sepsis, unspecified organism (5) Acute on chronic diastolic (congestive) heart failure Code(s): I50.33 - ACUTE ON CHRONIC DIASTOLIC (CONGESTIVE) HEART FAILURE (6) Anxiety Code(s): F41.9 - ANXIETY DISORDER, UNSPECIFIED (7) Atrial fibrillation Code(s): I48.91 - UNSPECIFIED ATRIAL FIBRILLATION (8) BPH (benign prostatic hypertrophy) Code(s): N40.0 - BENIGN PROSTATIC HYPERPLASIA WITHOUT LOWER URINRY TRACT SYMP (9) Bilateral kidney stones Code(s): N20.0 - CALCULUS OF KIDNEY (11) CHF (congestive heart failure) Code(s): I50.9 - HEART FAILURE, UNSPECIFIED (12) Diabetes Code(s): E11.9 - TYPE 2 DIABETES MELLITUS WITHOUT COMPLICATIONS (13) Dizziness Code(s): R42 - DIZZINESS AND GIDDINESS (14) Edema extremities Code(s): R60.0 - LOCALIZED EDEMA (15) H/O craniotomy Code(s): Z98.890 - OTHER SPECIFIED POSTPROCEDURAL STATES Assessment/Plan RENAL FUNCTION IMPROVING ON TELE WITH CHRONIC AFIB ON AC IV ABX FOR 14 MORE DAYS TOTAL WILL SEND TO [facility] D/W PATIENT DC TELE
[2019-09-18] MEDS: RIVAROXABAN 20 MG TABLET PO SCH (17:01)
[2019-09-18] MEDS: MELATONIN 5 MG TABLETS PO SCH (21:39)
[2019-09-18] MEDS: ATORVASTATIN CA 10 MG TABLET (FP) PO SCH (21:39)
[2019-09-19] MEDS: CEFAZOLIN 2 GM/D5W 2 GM/50 ML ML IVPB SCH ×3 (01:52→17:35)
[2019-09-19] MEDS: ACETAMINOPHEN 325 MG TABLET (FP) PO PRN ×4 (03:51→22:31)
[2019-09-19] MEDS: oxyCODONE HCL 5 MG TABLET PO PRN ×4 (03:52→22:32)
[2019-09-19] MEDS: INSULIN SLIDING SCALE (NOVOLOG) 1 VIAL SQ SCH ×4 (06:09→22:39)
[2019-09-19] MEDS: PHENAZOPYRIDINE HCL 100 MG TABLET (FP) PO SCH ×3 (06:09→22:31)
[2019-09-19] MEDS: GABAPENTIN 300 MG CAPSULE PO SCH ×3 (06:09→22:31)
[2019-09-19] MEDS ORDERED: PT OWN MED DRAWER 7, Y5N ONE (09:13)
[2019-09-19] MEDS: TAMSULOSIN HCL 0.4 MG CAP PO SCH (09:27)
[2019-09-19] MEDS: FINASTERIDE 5 MG TABLET (FP) PO SCH (09:27)
[2019-09-19] MEDS: DIGOXIN 0.25 MG TABLET (FP) PO SCH (09:27)
[2019-09-19] MEDS: FUROSEMIDE 40 MG TABLET (FP) PO SCH (09:27)
[2019-09-19] MEDS: CLOPIDOGREL BISULFATE 75 MG TABLET (FP) PO SCH (09:27)
--- NOTE | 2019-09-19 10:51 | PN ---
Progress Note (short form) - Note Progress Note: s: no chest pain, palps, dizziness, dyspnea Current Medications Generic Name Dose Route Start Last Admin Trade Name Freq PRN Reason Stop Dose Admin Acetaminophen 650 mg 09/12/19 14:50 09/19/19 10:07 Tylenol - PO 650 mg Q4H PRN Administration FEVER Al Hydroxide/Mg Hydroxide 30 ml 09/11/19 20:40 Mylanta Oral Suspension - PO Q6H PRN DYSPEPSIA Atorvastatin Calcium 10 mg 09/11/19 22:00 09/18/19 21:39 Lipitor - PO 10 mg HS [facility] Administration Clopidogrel Bisulfate 75 mg 09/12/19 10:00 09/19/19 09:27 Plavix - PO 75 mg DAILY [facility] Administration Digoxin 0.25 mg 09/14/19 10:00 09/19/19 09:27 Lanoxin - PO 0.25 mg DAILY [facility] Administration Finasteride 5 mg 09/12/19 10:00 09/19/19 09:27 Proscar - PO 5 mg DAILY [facility] Administration Furosemide 40 mg 09/18/19 11:15 09/19/19 09:27 Lasix - PO 40 mg DAILY [facility] Administration Gabapentin 900 mg 09/11/19 22:00 09/19/19 06:09 Neurontin - PO 900 mg TID [facility] Administration Hydrocortisone 1 applic 09/14/19 22:00 09/18/19 21:41 Hytone 1% Ointment - TP 1 applic BID [facility] Administration Cefazolin Sodium/Dextrose 2 gm in 50 mls @ 100 mls/hr 09/15/19 18:00 09/19/19 09:27 Ancef 2 Gm Premixed Ivpb - IVPB 100 mls/hr Q8H-IV [facility] Administration Insulin Aspart 1 vial 09/11/19 22:00 09/19/19 06:09 Novolog Vial Sliding Scale - SQ 2 units ACHS [facility] Administration Protocol Lidocaine HCl 1 applic 09/11/19 22:00 09/18/19 21:40 Xylocaine 5% Top. Ointment TP 1 applic BID [facility] Administration Melatonin 10 mg 09/11/19 22:00 09/18/19 21:39 Melatonin PO 10 mg HS [facility] Administration Methylnaltrexone [place] 12 mg 09/12/19 10:00 09/18/19 09:15 Relistor - SQ Not Given DAILY [facility] Metoprolol Succinate 50 mg 09/12/19 22:00 09/19/19 09:27 Toprol Xl - PO 50 mg BID [facility] Administration Ondansetron HCl 4 mg 09/11/19 20:40 Zofran Injection IVPUSH Q6H PRN NAUSEA AND/OR VOMITING Oxycodone HCl 30 mg 09/17/19 22:02 09/19/19 10:06 Roxicodone - PO 30 mg Q6H PRN Administration PAIN LEVEL 6-10 Phenazopyridine HCl 100 mg 09/11/19 22:00 09/19/19 06:09 Pyridium - PO 100 mg TID [facility] Administration Polyethylene Glycol 17 gm 09/11/19 22:00 09/18/19 21:41 Miralax (For Daily Use) - PO Not Given BID [facility] Promethazine HCl 12.5 mg 09/11/19 20:40 Phenergan Injection - IVPB Q6H PRN NAUSEA-FOR RESCUE AFTER 15 MIN Rivaroxaban 20 mg 09/14/19 18:00 09/18/19 17:01 Xarelto PO 20 mg DAILY@1800 [facility] Administration Tamsulosin HCl 0.4 mg 09/12/19 08:30 09/19/19 09:27 Flomax - PO 0.4 mg DAILY@0830 [facility] Administration Vital Signs Period Temp Pulse Resp BP Sys/Mixon Pulse Ox Last 24 Hr 98.0 F-99.3 F 68-155 20-20 135-155/73-83 95 Constitutional: Yes: No Distress, Calm Respiratory: Yes: CTA Bilaterally nl eff Gastrointestinal: Yes: Soft, Abdomen, Obese Cardiovascular: Yes: Pulse Irregular Heart Sounds: Yes: S1, S2 (iireg) Edema: trace le edema bl Neurological: Yes: Alert, Oriented no jaundice diaphoresis not agitated CBC, BMP 09/16/19 05:56 09/16/19 05:56 Echo 04/29: nl LVSF. RV tds. mild TR. mildly dilated ascending aorta cxr: clear lungs ecg: afib 127, nl intervals, nonspec st changes a/p: 64M with chronic AF , s/p PPM at [facility], CAD s/p PCI, remote hx intracranial bleed after a fall many years ago s/p evacuation at [facility] presents to ER with fever afib: -rate controlled, cont home toprol and dig (level ok here) -xarelto resumed cad, remote pci: -stable, no signs acs -cont bb, statin, plavix ppm: -outpt f/u uti, chrystal: -Found to have uti/kidney stone, now s/p cysto/stenting. -cr improving le edema: -improving with lasix 40 po qd
--- NOTE | 2019-09-19 10:54 | PN ---
Progress Note, Physician Chief Complaint: awake alert scheduled for picc line tomorrow then will dc to snf for 14 days iv abx resistant UTI - Current Medication List Current Medications: Active Medications Acetaminophen (Tylenol -) 650 mg PO Q4H PRN PRN Reason: FEVER Last Admin: 09/19/19 10:07 Dose: 650 mg Documented by: Al Hydroxide/Mg Hydroxide (Mylanta Oral Suspension -) 30 ml PO Q6H PRN PRN Reason: DYSPEPSIA Atorvastatin Calcium (Lipitor -) 10 mg PO HS [facility] Last Admin: 09/18/19 21:39 Dose: 10 mg Documented by: Clopidogrel Bisulfate (Plavix -) 75 mg PO DAILY [facility] Last Admin: 09/19/19 09:27 Dose: 75 mg Documented by: Digoxin (Lanoxin -) 0.25 mg PO DAILY [facility] Last Admin: 09/19/19 09:27 Dose: 0.25 mg Documented by: Finasteride (Proscar -) 5 mg PO DAILY [facility] Last Admin: 09/19/19 09:27 Dose: 5 mg Documented by: Furosemide (Lasix -) 40 mg PO DAILY [facility] Last Admin: 09/19/19 09:27 Dose: 40 mg Documented by: Gabapentin (Neurontin -) 900 mg PO TID [facility] Last Admin: 09/19/19 06:09 Dose: 900 mg Documented by: Hydrocortisone (Hytone 1% Ointment -) 1 applic TP BID [facility] Last Admin: 09/18/19 21:41 Dose: 1 applic Documented by: Cefazolin Sodium/Dextrose (Ancef 2 Gm Premixed Ivpb -) 2 gm in 50 mls @ 100 mls/hr IVPB Q8H-IV [facility] Last Admin: 09/19/19 09:27 Dose: 100 mls/hr Documented by: Insulin Aspart (Novolog Vial Sliding Scale -) 1 vial SQ [facility]; Protocol Last Admin: 09/19/19 06:09 Dose: 2 units Documented by: Lidocaine HCl (Xylocaine 5% Top. Ointment) 1 applic TP BID [facility] Last Admin: 09/18/19 21:40 Dose: 1 applic Documented by: Melatonin (Melatonin) 10 mg PO [facility] Last Admin: 09/18/19 21:39 Dose: 10 mg Documented by: Methylnaltrexone [place] (Relistor -) 12 mg SQ DAILY [facility] Last Admin: 09/18/19 09:15 Dose: Not Given Documented by: Metoprolol Succinate (Toprol Xl -) 50 mg PO BID [facility] Last Admin: 09/19/19 09:27 Dose: 50 mg Documented by: Ondansetron HCl (Zofran Injection) 4 mg IVPUSH Q6H PRN PRN Reason: NAUSEA AND/OR VOMITING Oxycodone HCl (Roxicodone -) 30 mg PO Q6H PRN PRN Reason: PAIN LEVEL 6-10 Last Admin: 09/19/19 10:06 Dose: 30 mg Documented by: Phenazopyridine HCl (Pyridium -) 100 mg PO TID [facility] Last Admin: 09/19/19 06:09 Dose: 100 mg Documented by: Polyethylene Glycol (Miralax (For Daily Use) -) 17 gm PO BID [facility] Last Admin: 09/18/19 21:41 Dose: Not Given Documented by: Promethazine HCl (Phenergan Injection -) 12.5 mg IVPB Q6H PRN PRN Reason: NAUSEA-FOR RESCUE AFTER 15 MIN Rivaroxaban (Xarelto) 20 mg PO DAILY@1800 [facility] Last Admin: 09/18/19 17:01 Dose: 20 mg Documented by: Tamsulosin HCl (Flomax -) 0.4 mg PO DAILY@0830 [facility] Last Admin: 09/19/19 09:27 Dose: 0.4 mg Documented by: - Objective Vital Signs: Vital Signs Temperature 98.0 F 09/19/19 06:00 Pulse Rate 77 09/19/19 09:27 Respiratory Rate 20 09/19/19 06:00 Blood Pressure 135/80 09/19/19 06:00 O2 Sat by Pulse Oximetry (%) 95 09/18/19 21:00 Constitutional: Yes: Mild Distress Cardiovascular: Yes: Pulse Irregular Respiratory: Yes: Diminished, On Nasal O2 Gastrointestinal: Yes: Soft, Abdomen, Obese Genitourinary: Yes: Incontinence Musculoskeletal: Yes: Back Pain, Muscle Weakness Edema: Yes Integumentary: Yes: Rash, Venous Stasis Changes Wound/Incision: Yes: Dressing Dry and Intact Neurological: Yes: Pre-Existing Deficit ...Motor Strength: LLE, RLE Labs: CBC, BMP 09/16/19 05:56 09/16/19 05:56 INR, PTT INR 2.43 (0.83-1.09) H 09/10/19 08:11 Problem List - Problems (1) JANETT (acute kidney injury) Code(s): N17.9 - ACUTE KIDNEY FAILURE, UNSPECIFIED (2) Bacteremia Code(s): R78.81 - BACTEREMIA (3) Obstructive nephropathy Code(s): N13.8 - OTHER OBSTRUCTIVE AND REFLUX UROPATHY (4) Sepsis Code(s): A41.9 - SEPSIS, UNSPECIFIED ORGANISM Qualifiers: Sepsis type: sepsis due to unspecified organism Qualified Code(s): A41.9 - Sepsis, unspecified organism (5) Acute on chronic diastolic (congestive) heart failure Code(s): I50.33 - ACUTE ON CHRONIC DIASTOLIC (CONGESTIVE) HEART FAILURE (6) Anxiety Code(s): F41.9 - ANXIETY DISORDER, UNSPECIFIED (7) Atrial fibrillation Code(s): I48.91 - UNSPECIFIED ATRIAL FIBRILLATION (8) BPH (benign prostatic hypertrophy) Code(s): N40.0 - BENIGN PROSTATIC HYPERPLASIA WITHOUT LOWER URINRY TRACT SYMP (9) Bilateral kidney stones Code(s): N20.0 - CALCULUS OF KIDNEY (11) CHF (congestive heart failure) Code(s): I50.9 - HEART FAILURE, UNSPECIFIED (12) Diabetes Code(s): E11.9 - TYPE 2 DIABETES MELLITUS WITHOUT COMPLICATIONS (13) Dizziness Code(s): R42 - DIZZINESS AND GIDDINESS (14) Edema extremities Code(s): R60.0 - LOCALIZED EDEMA (15) H/O craniotomy Code(s): Z98.890 - OTHER SPECIFIED POSTPROCEDURAL STATES Assessment/Plan RENAL FUNCTION IMPROVING ON TELE WITH CHRONIC AFIB ON AC IV ABX FOR 14 MORE DAYS TOTAL FOR RESISTANT UTI WILL SEND TO [facility] D/W PATIENT [facility] TELE
[2019-09-19] MEDS: HYDROCORTISONE 1% TOPICAL OINT 30 GM TUBE TP SCH ×2 (15:29→22:39)
[2019-09-19] MEDS: POLYETHYLENE GLYCOL 3350 119 GM BTL PO SCH ×2 (15:29→22:40)
[2019-09-19] MEDS: LIDOCAINE HCL 5% TOP OINTMENT 50 GM TUBE TP SCH ×2 (15:30→22:39)
[2019-09-19] MEDS: RIVAROXABAN 20 MG TABLET PO SCH (17:35)
[2019-09-19] MEDS: Methylnaltrexone Bromide 12 MG/0.6 ML KIT SQ SCH (18:33)
[2019-09-19] MEDS: MELATONIN 5 MG TABLETS PO SCH (22:31)
[2019-09-19] MEDS: ATORVASTATIN CA 10 MG TABLET (FP) PO SCH (22:32)
[2019-09-20] MEDS: CEFAZOLIN 2 GM/D5W 2 GM/50 ML ML IVPB SCH ×3 (01:36→17:38)
[2019-09-20] MEDS: ACETAMINOPHEN 325 MG TABLET (FP) PO PRN ×4 (05:08→23:46)
[2019-09-20] MEDS: GABAPENTIN 300 MG CAPSULE PO SCH ×3 (05:09→21:51)
[2019-09-20] MEDS: PHENAZOPYRIDINE HCL 100 MG TABLET (FP) PO SCH ×3 (05:09→21:51)
[2019-09-20] MEDS: oxyCODONE HCL 5 MG TABLET PO PRN ×4 (05:10→23:47)
[2019-09-20] MEDS: INSULIN SLIDING SCALE (NOVOLOG) 1 VIAL SQ SCH ×4 (06:11→21:52)
--- NOTE | 2019-09-20 08:42 | PN ---
Progress Note, Physician - Current Medication List Current Medications: Active Medications Acetaminophen (Tylenol -) 650 mg PO Q4H PRN PRN Reason: FEVER Last Admin: 09/20/19 05:08 Dose: 650 mg Documented by: Al Hydroxide/Mg Hydroxide (Mylanta Oral Suspension -) 30 ml PO Q6H PRN PRN Reason: DYSPEPSIA Atorvastatin Calcium (Lipitor -) 10 mg PO HS [facility] Last Admin: 09/19/19 22:32 Dose: 10 mg Documented by: Clopidogrel Bisulfate (Plavix -) 75 mg PO DAILY [facility] Last Admin: 09/19/19 09:27 Dose: 75 mg Documented by: Digoxin (Lanoxin -) 0.25 mg PO DAILY [facility] Last Admin: 09/19/19 09:27 Dose: 0.25 mg Documented by: Finasteride (Proscar -) 5 mg PO DAILY [facility] Last Admin: 09/19/19 09:27 Dose: 5 mg Documented by: Furosemide (Lasix -) 40 mg PO DAILY [facility] Last Admin: 09/19/19 09:27 Dose: 40 mg Documented by: Gabapentin (Neurontin -) 900 mg PO TID [facility] Last Admin: 09/20/19 05:09 Dose: 900 mg Documented by: Hydrocortisone (Hytone 1% Ointment -) 1 applic TP BID [facility] Last Admin: 09/19/19 22:39 Dose: 1 applic Documented by: Cefazolin Sodium/Dextrose (Ancef 2 Gm Premixed Ivpb -) 2 gm in 50 mls @ 100 mls/hr IVPB Q8H-IV [facility] Last Admin: 09/20/19 01:36 Dose: 100 mls/hr Documented by: Insulin Aspart (Novolog Vial Sliding Scale -) 1 vial SQ ACHS [facility]; Protocol Last Admin: 09/20/19 06:11 Dose: 4 units Documented by: Lidocaine HCl (Xylocaine 5% Top. Ointment) 1 applic TP BID [facility] Last Admin: 09/19/19 22:39 Dose: Not Given Documented by: Melatonin (Melatonin) 10 mg PO [facility] Last Admin: 09/19/19 22:31 Dose: 10 mg Documented by: Methylnaltrexone [place] (Relistor -) 12 mg SQ DAILY [facility] Last Admin: 09/19/19 18:33 Dose: Not Given Documented by: Metoprolol Succinate (Toprol Xl -) 50 mg PO BID [facility] Last Admin: 09/19/19 22:32 Dose: 50 mg Documented by: Ondansetron HCl (Zofran Injection) 4 mg IVPUSH Q6H PRN PRN Reason: NAUSEA AND/OR VOMITING Oxycodone HCl (Roxicodone -) 30 mg PO Q6H PRN PRN Reason: PAIN LEVEL 6-10 Last Admin: 09/20/19 05:10 Dose: 30 mg Documented by: Phenazopyridine HCl (Pyridium -) 100 mg PO TID [facility] Last Admin: 09/20/19 05:09 Dose: 100 mg Documented by: Polyethylene Glycol (Miralax (For Daily Use) -) 17 gm PO BID [facility] Last Admin: 09/19/19 22:40 Dose: Not Given Documented by: Promethazine HCl (Phenergan Injection -) 12.5 mg IVPB Q6H PRN PRN Reason: NAUSEA-FOR RESCUE AFTER 15 MIN Rivaroxaban (Xarelto) 20 mg PO DAILY@1800 [facility] Last Admin: 09/19/19 17:35 Dose: 20 mg Documented by: Tamsulosin HCl (Flomax -) 0.4 mg PO DAILY@0830 [facility] Last Admin: 09/19/19 09:27 Dose: 0.4 mg Documented by: - Objective Vital Signs: Vital Signs Temperature 97.9 F 09/20/19 06:00 Pulse Rate 73 09/20/19 06:00 Respiratory Rate 18 09/20/19 06:00 Blood Pressure 149/95 09/20/19 06:00 O2 Sat by Pulse Oximetry (%) 99 09/19/19 21:00 Cardiovascular: Yes: S1, S2 Respiratory: Yes: Regular, CTA Bilaterally Gastrointestinal: Yes: Normal Bowel Sounds, Soft Labs: CBC, BMP 09/16/19 05:56 09/16/19 05:56 INR, PTT INR 2.43 (0.83-1.09) H 09/10/19 08:11 Problem List - Problems (1) Sepsis Assessment/Plan: IV ABX to complete 14 days ID ON BOARD--follow up Afebrile Microbiology 09/14/19 10:55 Blood - Peripheral Venous Blood Culture - Final NO GROWTH AFTER 5 DAYS INCUBATION 09/14/19 10:48 Blood - Peripheral Venous Blood Culture - Final NO GROWTH AFTER 5 DAYS INCUBATION 09/09/19 21:30 Blood - Peripheral Venous Blood Culture - Final Escherichia Coli 09/09/19 21:30 Blood - Peripheral Venous Blood Culture - Final Escherichia Coli 09/09/19 21:30 Urine - Urine - Catheterized Urine Culture - Final Escherichia Coli Code(s): A41.9 - SEPSIS, UNSPECIFIED ORGANISM Qualifiers: Sepsis type: sepsis due to unspecified organism Qualified Code(s): A41.9 - Sepsis, unspecified organism (2) UTI (urinary tract infection) Assessment/Plan: ABOVE Microbiology 09/09/19 21:30 Blood - Peripheral Venous Blood Culture - Final Escherichia Coli 09/09/19 21:30 Blood - Peripheral Venous Blood Culture - Final Escherichia Coli 09/09/19 21:30 Urine - Urine - Catheterized Urine Culture - Final Escherichia Coli Code(s): N39.0 - URINARY TRACT INFECTION, SITE NOT SPECIFIED (3) Atrial fibrillation with RVR Assessment/Plan: Improved rate controlled ON B-BLOCKERS resume xarelto Code(s): I48.91 - UNSPECIFIED ATRIAL FIBRILLATION (4) CHF (congestive heart failure) Code(s): I50.9 - HEART FAILURE, UNSPECIFIED (5) COPD (chronic obstructive pulmonary disease) Assessment/Plan: stable Code(s): J44.9 - CHRONIC OBSTRUCTIVE PULMONARY DISEASE, UNSPECIFIED (6) Diabetes Assessment/Plan: BG Code(s): E11.9 - TYPE 2 DIABETES MELLITUS WITHOUT COMPLICATIONS Qualifiers: Diabetes mellitus type: type 2 (7) HTN (hypertension) Assessment/Plan: Vital Signs Period Temp Pulse Resp BP Sys/Mixon Pulse Ox Last 24 Hr 98.1 F-99.1 F 78-101 20-20 110-131/58-90 100 Code(s): I10 - ESSENTIAL (PRIMARY) HYPERTENSION (8) Obstructive nephropathy Assessment/Plan: Operative Date: 09/10/19 Pre-Operative Diagnosis: left ureteral stone with high grade obstruction; gram negative sepsis; acute renal injury Operation: cystoscopy/left retrograde pyelogram/left ureteroscopic stone manipulation and stent placement. Findings: high grade hydronephrosis with obstructing 1+ ureteral stone Post-Operative Diagnosis: Same as Pre-op Surgeon: Tyrell Little Code(s): N13.8 - OTHER OBSTRUCTIVE AND REFLUX UROPATHY Assessment/[facility] d/w pt
[2019-09-20] MEDS ORDERED: PT OWN MED DRAWER 7, Y5N ONE (09:11)
[2019-09-20] MEDS: CLOPIDOGREL BISULFATE 75 MG TABLET (FP) PO SCH (09:34)
[2019-09-20] MEDS: FINASTERIDE 5 MG TABLET (FP) PO SCH (09:34)
[2019-09-20] MEDS: TAMSULOSIN HCL 0.4 MG CAP PO SCH (09:34)
[2019-09-20] MEDS: FUROSEMIDE 40 MG TABLET (FP) PO SCH (09:34)
[2019-09-20] MEDS: DIGOXIN 0.25 MG TABLET (FP) PO SCH (09:34)
[2019-09-20] MEDS: POLYETHYLENE GLYCOL 3350 119 GM BTL PO SCH ×2 (09:35→21:58)
[2019-09-20] MEDS: HYDROCORTISONE 1% TOPICAL OINT 30 GM TUBE TP SCH ×2 (09:35→21:58)
[2019-09-20] MEDS: Methylnaltrexone Bromide 12 MG/0.6 ML KIT SQ SCH (09:35)
[2019-09-20] MEDS: LIDOCAINE HCL 5% TOP OINTMENT 50 GM TUBE TP SCH ×2 (09:36→21:59)
--- NOTE | 2019-09-20 10:28 | PN ---
Progress Note (short form) - Note Progress Note: s: no chest pain, palps, dizziness, dyspnea Current Medications Generic Name Dose Route Start Last Admin Trade Name Freq PRN Reason Stop Dose Admin Acetaminophen 650 mg 09/12/19 14:50 09/20/19 05:08 Tylenol - PO 650 mg Q4H PRN Administration FEVER Al Hydroxide/Mg Hydroxide 30 ml 09/11/19 20:40 Mylanta Oral Suspension - PO Q6H PRN DYSPEPSIA Atorvastatin Calcium 10 mg 09/11/19 22:00 09/19/19 22:32 Lipitor - PO 10 mg HS AMARI Administration Clopidogrel Bisulfate 75 mg 09/12/19 10:00 09/20/19 09:34 Plavix - PO 75 mg DAILY AM[facility]I Administration Digoxin 0.25 mg 09/14/19 10:00 09/20/19 09:34 Lanoxin - PO 0.25 mg DAILY [facility] Administration Finasteride 5 mg 09/12/19 10:00 09/20/19 09:34 Proscar - PO 5 mg DAILY [facility] Administration Furosemide 40 mg 09/18/19 11:15 09/20/19 09:34 Lasix - PO 40 mg DAILY AM[facility]I Administration Gabapentin 900 mg 09/11/19 22:00 09/20/19 05:09 Neurontin - PO 900 mg TID AM[facility]I Administration Hydrocortisone 1 applic 09/14/19 22:00 09/20/19 09:35 Hytone 1% Ointment - TP 1 applic BID AM[facility]I Administration Cefazolin Sodium/Dextrose 2 gm in 50 mls @ 100 mls/hr 09/15/19 18:00 09/20/19 09:33 Ancef 2 Gm Premixed Ivpb - IVPB 100 mls/hr Q8H-IV AM[facility]I Administration Insulin Aspart 1 vial 09/11/19 22:00 09/20/19 06:11 Novolog Vial Sliding Scale - SQ 4 units ACHS AMARI Administration Protocol Lidocaine HCl 1 applic 09/11/19 22:00 09/20/19 09:36 Xylocaine 5% Top. Ointment TP 1 applic BID AM[facility]I Administration Melatonin 10 mg 09/11/19 22:00 09/19/19 22:31 Melatonin PO 10 mg HS AMARI Administration Methylnaltrexone [place] 12 mg 09/12/19 10:00 09/20/19 09:35 Relistor - SQ Not Given DAILY AM[facility]I Metoprolol Succinate 50 mg 09/12/19 22:00 09/20/19 09:34 Toprol Xl - PO 50 mg BID AM[facility]I Administration Ondansetron HCl 4 mg 09/11/19 20:40 Zofran Injection IVPUSH Q6H PRN NAUSEA AND/OR VOMITING Oxycodone HCl 30 mg 09/17/19 22:02 09/20/19 05:10 Roxicodone - PO 30 mg Q6H PRN Administration PAIN LEVEL 6-10 Phenazopyridine HCl 100 mg 09/11/19 22:00 09/20/19 05:09 Pyridium - PO 100 mg TID [facility] Administration Polyethylene Glycol 17 gm 09/11/19 22:00 09/20/19 09:35 Miralax (For Daily Use) - PO Not Given BID [facility] Promethazine HCl 12.5 mg 09/11/19 20:40 Phenergan Injection - IVPB Q6H PRN NAUSEA-FOR RESCUE AFTER 15 MIN Rivaroxaban 20 mg 09/14/19 18:00 09/19/19 17:35 Xarelto PO 20 mg DAILY@1800 [facility] Administration Tamsulosin HCl 0.4 mg 09/12/19 08:30 09/20/19 09:34 Flomax - PO 0.4 mg DAILY@0830 [facility] Administration Vital Signs Period Temp Pulse Resp BP Sys/Mixon Pulse Ox Last 24 Hr 97.4 F-98.7 F 72-86 18-24 126-154/69-95 95-99 Constitutional: Yes: No Distress, Calm Respiratory: Yes: CTA Bilaterally nl eff Gastrointestinal: Yes: Soft, Abdomen, Obese Cardiovascular: Yes: Pulse Irregular Heart Sounds: Yes: S1, S2 (iireg) Edema: trace le edema bl Neurological: Yes: Alert, Oriented no jaundice diaphoresis not agitated CBC, BMP 09/16/19 05:56 09/16/19 05:56 Echo 04/29: nl LVSF. RV tds. mild TR. mildly dilated ascending aorta cxr: clear lungs ecg: afib 127, nl intervals, nonspec st changes a/p: 64M with chronic AF , s/p PPM at [facility], CAD s/p PCI, remote hx intracranial bleed after a fall many years ago s/p evacuation at [facility] presents to ER with fever afib: -rate controlled, cont home toprol and dig (level ok here) -xarelto resumed cad, remote pci: -stable, no signs acs -cont bb, statin, plavix ppm: -outpt f/u uti, chrystal: -Found to have uti/kidney stone, now s/p cysto/stenting. -cr improving le edema: -improving with lasix 40 po qd
--- NOTE | 2019-09-20 11:28 | PN ---
Progress Note, Physician History of Present Illness: Pt seen and examined at bedside. He is awake and alert. He feels that his lower ext edema is improved. - Current Medication List Current Medications: Active Medications Acetaminophen (Tylenol -) 650 mg PO Q4H PRN PRN Reason: FEVER Last Admin: 09/20/19 05:08 Dose: 650 mg Documented by: Al Hydroxide/Mg Hydroxide (Mylanta Oral Suspension -) 30 ml PO Q6H PRN PRN Reason: DYSPEPSIA Atorvastatin Calcium (Lipitor -) 10 mg PO HS [facility] Last Admin: 09/19/19 22:32 Dose: 10 mg Documented by: Clopidogrel Bisulfate (Plavix -) 75 mg PO DAILY [facility] Last Admin: 09/20/19 09:34 Dose: 75 mg Documented by: Digoxin (Lanoxin -) 0.25 mg PO DAILY [facility] Last Admin: 09/20/19 09:34 Dose: 0.25 mg Documented by: Finasteride (Proscar -) 5 mg PO DAILY [facility] Last Admin: 09/20/19 09:34 Dose: 5 mg Documented by: Furosemide (Lasix -) 40 mg PO DAILY [facility] Last Admin: 09/20/19 09:34 Dose: 40 mg Documented by: Gabapentin (Neurontin -) 900 mg PO TID [facility] Last Admin: 09/20/19 05:09 Dose: 900 mg Documented by: Hydrocortisone (Hytone 1% Ointment -) 1 applic TP BID [facility] Last Admin: 09/20/19 09:35 Dose: 1 applic Documented by: Cefazolin Sodium/Dextrose (Ancef 2 Gm Premixed Ivpb -) 2 gm in 50 mls @ 100 mls/hr IVPB Q8H-IV [facility] Last Admin: 09/20/19 09:33 Dose: 100 mls/hr Documented by: Insulin Aspart (Novolog Vial Sliding Scale -) 1 vial SQ [facility]; Protocol Last Admin: 09/20/19 06:11 Dose: 4 units Documented by: Lidocaine HCl (Xylocaine 5% Top. Ointment) 1 applic TP BID [facility] Last Admin: 09/20/19 09:36 Dose: 1 applic Documented by: Melatonin (Melatonin) 10 mg PO HS [facility] Last Admin: 09/19/19 22:31 Dose: 10 mg Documented by: Methylnaltrexone [place] (Relistor -) 12 mg SQ DAILY [facility] Last Admin: 09/20/19 09:35 Dose: Not Given Documented by: Metoprolol Succinate (Toprol Xl -) 50 mg PO BID [facility] Last Admin: 09/20/19 09:34 Dose: 50 mg Documented by: Ondansetron HCl (Zofran Injection) 4 mg IVPUSH Q6H PRN PRN Reason: NAUSEA AND/OR VOMITING Oxycodone HCl (Roxicodone -) 30 mg PO Q6H PRN PRN Reason: PAIN LEVEL 6-10 Last Admin: 09/20/19 05:10 Dose: 30 mg Documented by: Phenazopyridine HCl (Pyridium -) 100 mg PO TID [facility] Last Admin: 09/20/19 05:09 Dose: 100 mg Documented by: Polyethylene Glycol (Miralax (For Daily Use) -) 17 gm PO BID [facility] Last Admin: 09/20/19 09:35 Dose: Not Given Documented by: Promethazine HCl (Phenergan Injection -) 12.5 mg IVPB Q6H PRN PRN Reason: NAUSEA-FOR RESCUE AFTER 15 MIN Rivaroxaban (Xarelto) 20 mg PO DAILY@1800 [facility] Last Admin: 09/19/19 17:35 Dose: 20 mg Documented by: Tamsulosin HCl (Flomax -) 0.4 mg PO DAILY@0830 [facility] Last Admin: 09/20/19 09:34 Dose: 0.4 mg Documented by: - Objective Vital Signs: Vital Signs Temperature 98.4 F 09/20/19 09:00 Pulse Rate 78 09/20/19 09:34 Respiratory Rate 20 09/20/19 09:00 Blood Pressure 154/81 09/20/19 09:00 O2 Sat by Pulse Oximetry (%) 95 09/20/19 09:00 Constitutional: Yes: Calm Eyes: Yes: Conjunctiva Clear HENT: Yes: Atraumatic Neck: Yes: Supple Cardiovascular: Yes: S1, S2 Respiratory: Yes: CTA Bilaterally Gastrointestinal: Yes: Normal Bowel Sounds, Soft Genitourinary: Yes: WNL Musculoskeletal: Yes: WNL Neurological: Yes: Oriented Psychiatric: Yes: Oriented Labs: CBC, BMP 09/16/19 05:56 09/16/19 05:56 INR, PTT INR 2.43 (0.83-1.09) H 09/10/19 08:11 Problem List - Problems (1) JANETT (acute kidney injury) Code(s): N17.9 - ACUTE KIDNEY FAILURE, UNSPECIFIED (2) CHF (congestive heart failure) Code(s): I50.9 - HEART FAILURE, UNSPECIFIED (3) COPD (chronic obstructive pulmonary disease) Code(s): J44.9 - CHRONIC OBSTRUCTIVE PULMONARY DISEASE, UNSPECIFIED (4) Lactic acidosis Code(s): E87.2 - ACIDOSIS Assessment/Plan Current Medications Generic Name Dose Route Start Last Admin Trade Name Freq PRN Reason Stop Dose Admin Acetaminophen 650 mg 09/12/19 14:50 09/20/19 05:08 Tylenol - PO 650 mg Q4H PRN Administration FEVER Al Hydroxide/Mg Hydroxide 30 ml 09/11/19 20:40 Mylanta Oral Suspension - PO Q6H PRN DYSPEPSIA Atorvastatin Calcium 10 mg 09/11/19 22:00 09/19/19 22:32 Lipitor - PO 10 mg HS AMARI Administration Clopidogrel Bisulfate 75 mg 09/12/19 10:00 09/20/19 09:34 Plavix - PO 75 mg DAILY AMARI Administration Digoxin 0.25 mg 09/14/19 10:00 09/20/19 09:34 Lanoxin - PO 0.25 mg DAILY MA[facility]I Administration Finasteride 5 mg 09/12/19 10:00 09/20/19 09:34 Proscar - PO 5 mg DAILY AMARI Administration Furosemide 40 mg 09/18/19 11:15 09/20/19 09:34 Lasix - PO 40 mg DAILY AMARI Administration Gabapentin 900 mg 09/11/19 22:00 09/20/19 05:09 Neurontin - PO 900 mg TID AMARI Administration Hydrocortisone 1 applic 09/14/19 22:00 09/20/19 09:35 Hytone 1% Ointment - TP 1 applic BID AMARI Administration Cefazolin Sodium/Dextrose 2 gm in 50 mls @ 100 mls/hr 09/15/19 18:00 09/20/19 09:33 Ancef 2 Gm Premixed Ivpb - IVPB 100 mls/hr Q8H-IV AM[facility]I Administration Insulin Aspart 1 vial 09/11/19 22:00 09/20/19 06:11 Novolog Vial Sliding Scale - SQ 4 units ACHS AMARI Administration Protocol Lidocaine HCl 1 applic 09/11/19 22:00 09/20/19 09:36 Xylocaine 5% Top. Ointment TP 1 applic BID AMARI Administration Melatonin 10 mg 09/11/19 22:00 09/19/19 22:31 Melatonin PO 10 mg HS AMARI Administration Methylnaltrexone [place] 12 mg 09/12/19 10:00 09/20/19 09:35 Relistor - SQ Not Given DAILY [facility] Metoprolol Succinate 50 mg 09/12/19 22:00 09/20/19 09:34 Toprol Xl - PO 50 mg BID AM[facility]I Administration Ondansetron HCl 4 mg 09/11/19 20:40 Zofran Injection IVPUSH Q6H PRN NAUSEA AND/OR VOMITING Oxycodone HCl 30 mg 09/17/19 22:02 09/20/19 05:10 Roxicodone - PO 30 mg Q6H PRN Administration PAIN LEVEL 6-10 Phenazopyridine HCl 100 mg 09/11/19 22:00 09/20/19 05:09 Pyridium - PO 100 mg TID AM[facility]I Administration Polyethylene Glycol 17 gm 09/11/19 22:00 09/20/19 09:35 Miralax (For Daily Use) - PO Not Given BID [facility] Promethazine HCl 12.5 mg 09/11/19 20:40 Phenergan Injection - IVPB Q6H PRN NAUSEA-FOR RESCUE AFTER 15 MIN Rivaroxaban 20 mg 09/14/19 18:00 09/19/19 17:35 Xarelto PO 20 mg DAILY@1800 AMARI Administration Tamsulosin HCl 0.4 mg 09/12/19 08:30 09/20/19 09:34 Flomax - PO 0.4 mg DAILY@0830 AMARI Administration Impression 1. JANETT 2. lactic acidosis 3. sepsis 4. chf 5. hld 6. hx htn 7. nephrolithiasis 8. shock 9. hydronephrosis 10. obesity 11. copd Plan - renal function had stabilized - check bmp as he is on lasix - check mag level - volume status improved - pt tolerating diet
[2019-09-20 13:15] LABS: HEMATOCRIT 35.7 % (35.4-49); HEMOGLOBIN 11.7 GM/dL (11.7-16.9); MCH 29.7 pg (25.7-33.7); MCHC 32.8 g/dl (32.0-35.9); MEAN CELL VOLUME 90.5 fl (80-96); MEAN PLT VOLUME 7.1 fl (7.5-11.1); PLATELET COUNT 306 K/MM3 (134-434); RBC 3.94 M/mm3 (4.00-5.60); RDW 15.2 % (11.9-15.9); WHITE BLOOD COUNT 6.8 K/mm3 (4.0-10.0)
[2019-09-20 13:37] LABS: CALCIUM 8.8 mg/dL (8.5-10.1); CREATININE 1.2 mg/dL (0.55-1.3); POTASSIUM 4.7 mmol/L (3.5-5.1)
[2019-09-20] MEDS: RIVAROXABAN 20 MG TABLET PO SCH (17:42)
[2019-09-20] MEDS: ATORVASTATIN CA 10 MG TABLET (FP) PO SCH (21:51)
[2019-09-20] MEDS: MELATONIN 5 MG TABLETS PO SCH (21:51)
[2019-09-21] MEDS: CEFAZOLIN 2 GM/D5W 2 GM/50 ML ML IVPB SCH ×3 (01:37→18:19)
[2019-09-21] MEDS: PHENAZOPYRIDINE HCL 100 MG TABLET (FP) PO SCH ×3 (06:22→22:06)
[2019-09-21] MEDS: GABAPENTIN 300 MG CAPSULE PO SCH ×3 (06:22→21:58)
[2019-09-21] MEDS: oxyCODONE HCL 5 MG TABLET PO PRN ×3 (06:23→19:43)
[2019-09-21] MEDS: ACETAMINOPHEN 325 MG TABLET (FP) PO PRN ×3 (06:23→19:43)
[2019-09-21] MEDS: INSULIN SLIDING SCALE (NOVOLOG) 1 VIAL SQ SCH ×4 (06:26→22:00)
[2019-09-21] MEDS: HYDROCORTISONE 1% TOPICAL OINT 30 GM TUBE TP SCH ×2 (10:30→21:57)
[2019-09-21] MEDS: FINASTERIDE 5 MG TABLET (FP) PO SCH (10:30)
[2019-09-21] MEDS: DIGOXIN 0.25 MG TABLET (FP) PO SCH (10:30)
[2019-09-21] MEDS: POLYETHYLENE GLYCOL 3350 119 GM BTL PO SCH ×2 (10:30→21:58)
[2019-09-21] MEDS: CLOPIDOGREL BISULFATE 75 MG TABLET (FP) PO SCH (10:30)
[2019-09-21] MEDS: TAMSULOSIN HCL 0.4 MG CAP PO SCH (10:30)
[2019-09-21] MEDS: Methylnaltrexone Bromide 12 MG/0.6 ML KIT SQ SCH (10:31)
[2019-09-21] MEDS: LIDOCAINE HCL 5% TOP OINTMENT 50 GM TUBE TP SCH ×2 (10:31→22:06)
[2019-09-21] MEDS: FUROSEMIDE 40 MG TABLET (FP) PO SCH (10:35)
[2019-09-21 11:06] LABS: ALBUMIN 2.4 g/dl (3.4-5.0); BILIRUBIN,TOTAL 0.5 mg/dL (0.2-1); BLOOD UREA NITROGEN 19.7 mg/dL (7-18); CALCIUM 8.6 mg/dL (8.5-10.1); CREATININE 1.1 mg/dL (0.55-1.3); MAGNESIUM 1.8 mg/dL (1.8-2.4); POTASSIUM 4.6 mmol/L (3.5-5.1); TOT PROT 7.2 g/dl (6.4-8.2)
[2019-09-21 11:57] VITALS: BMI 48.8
--- NOTE | 2019-09-21 13:59 | PN ---
Progress Note, Physician History of Present Illness: Pt has no complaints. Feels edema is improved. - Current Medication List Current Medications: Active Medications Acetaminophen (Tylenol -) 650 mg PO Q4H PRN PRN Reason: FEVER Last Admin: 09/21/19 13:31 Dose: 650 mg Documented by: Al Hydroxide/Mg Hydroxide (Mylanta Oral Suspension -) 30 ml PO Q6H PRN PRN Reason: DYSPEPSIA Atorvastatin Calcium (Lipitor -) [address] [facility] Last Admin: 09/20/19 21:51 Dose: 10 mg Documented by: Clopidogrel Bisulfate (Plavix -) 75 mg PO DAILY [facility] Last Admin: 09/21/19 10:30 Dose: 75 mg Documented by: Digoxin (Lanoxin -) 0.25 mg PO DAILY [facility] Last Admin: 09/21/19 10:30 Dose: 0.25 mg Documented by: Finasteride (Proscar -) 5 mg PO DAILY [facility] Last Admin: 09/21/19 10:30 Dose: 5 mg Documented by: Gabapentin (Neurontin -) 900 mg PO TID [facility] Last Admin: 09/21/19 13:31 Dose: 900 mg Documented by: Hydrocortisone (Hytone 1% Ointment -) 1 applic TP BID [facility] Last Admin: 09/21/19 10:30 Dose: 1 applic Documented by: Cefazolin Sodium/Dextrose (Ancef 2 Gm Premixed Ivpb -) 2 gm in 50 mls @ 100 mls/hr IVPB Q8H-IV [facility] Last Admin: 09/21/19 10:30 Dose: 100 mls/hr Documented by: Insulin Aspart (Novolog Vial Sliding Scale -) 1 vial SQ [facility]; Protocol Last Admin: 09/21/19 13:48 Dose: 2 units Documented by: Lidocaine HCl (Xylocaine 5% Top. Ointment) 1 applic TP BID [facility] Last Admin: 09/21/19 10:31 Dose: 1 applic Documented by: Melatonin (Melatonin) [address] [facility] Last Admin: 09/20/19 21:51 Dose: 10 mg Documented by: Methylnaltrexone [place] (Relistor -) 12 mg SQ DAILY [facility] Last Admin: 09/21/19 10:31 Dose: Not Given Documented by: Metoprolol Succinate (Toprol Xl -) 50 mg PO BID [facility] Last Admin: 09/21/19 10:30 Dose: 50 mg Documented by: Ondansetron HCl (Zofran Injection) 4 mg IVPUSH Q6H PRN PRN Reason: NAUSEA AND/OR VOMITING Oxycodone HCl (Roxicodone -) 30 mg PO Q6H PRN PRN Reason: PAIN LEVEL 6-10 Last Admin: 09/21/19 13:32 Dose: 30 mg Documented by: Phenazopyridine HCl (Pyridium -) 100 mg PO TID [facility] Last Admin: 09/21/19 13:31 Dose: 100 mg Documented by: Polyethylene Glycol (Miralax (For Daily Use) -) 17 gm PO BID [facility] Last Admin: 09/21/19 10:30 Dose: Not Given Documented by: Promethazine HCl (Phenergan Injection -) 12.5 mg IVPB Q6H PRN PRN Reason: NAUSEA-FOR RESCUE AFTER 15 MIN Rivaroxaban (Xarelto) 20 mg PO DAILY@1800 [facility] Last Admin: 09/20/19 17:42 Dose: 20 mg Documented by: Tamsulosin HCl (Flomax -) 0.4 mg PO DAILY@0830 [facility] Last Admin: 09/21/19 10:30 Dose: 0.4 mg Documented by: - Objective Vital Signs: Vital Signs Temperature 97.9 F 09/21/19 09:30 Pulse Rate 75 09/21/19 10:30 Respiratory Rate 20 09/21/19 09:30 Blood Pressure 132/63 09/21/19 09:30 O2 Sat by Pulse Oximetry (%) 95 09/21/19 09:30 Constitutional: Yes: Calm Eyes: Yes: Conjunctiva Clear HENT: Yes: Atraumatic Cardiovascular: Yes: S1, S2 Respiratory: Yes: CTA Bilaterally Gastrointestinal: Yes: Soft Genitourinary: Yes: WNL Musculoskeletal: Yes: WNL Edema: No Neurological: Yes: Oriented Psychiatric: Yes: Oriented Labs: CBC, BMP 09/20/19 12:40 09/21/19 09:22 INR, PTT INR 2.43 (0.83-1.09) H 09/10/19 08:11 Problem List - Problems (1) JANETT (acute kidney injury) Code(s): N17.9 - ACUTE KIDNEY FAILURE, UNSPECIFIED (2) CHF (congestive heart failure) Code(s): I50.9 - HEART FAILURE, UNSPECIFIED (3) COPD (chronic obstructive pulmonary disease) Code(s): J44.9 - CHRONIC OBSTRUCTIVE PULMONARY DISEASE, UNSPECIFIED (4) Lactic acidosis Code(s): E87.2 - ACIDOSIS Assessment/Plan Current Medications Generic Name Dose Route Start Last Admin Trade Name Freq PRN Reason Stop Dose Admin Acetaminophen 650 mg 09/12/19 14:50 09/21/19 13:31 Tylenol - PO 650 mg Q4H PRN Administration FEVER Al Hydroxide/Mg Hydroxide 30 ml 09/11/19 20:40 Mylanta Oral Suspension - PO Q6H PRN DYSPEPSIA Atorvastatin Calcium 10 mg 09/11/19 22:00 09/20/19 21:51 Lipitor - PO 10 mg HS [facility]I Administration Clopidogrel Bisulfate 75 mg 09/12/19 10:00 09/21/19 10:30 Plavix - PO 75 mg DAILY [facility] Administration Digoxin 0.25 mg 09/14/19 10:00 09/21/19 10:30 Lanoxin - PO 0.25 mg DAILY [facility] Administration Finasteride 5 mg 09/12/19 10:00 09/21/19 10:30 Proscar - PO 5 mg DAILY [facility] Administration Gabapentin 900 mg 09/11/19 22:00 09/21/19 13:31 Neurontin - PO 900 mg TID [facility] Administration Hydrocortisone 1 applic 09/14/19 22:00 09/21/19 10:30 Hytone 1% Ointment - TP 1 applic BID [facility] Administration Cefazolin Sodium/Dextrose 2 gm in 50 mls @ 100 mls/hr 09/15/19 18:00 09/21/19 10:30 Ancef 2 Gm Premixed Ivpb - IVPB 100 mls/hr Q8H-IV [facility] Administration Insulin Aspart 1 vial 09/11/19 22:00 09/21/19 13:48 Novolog Vial Sliding Scale - SQ 2 units ACHS [facility]I Administration Protocol Lidocaine HCl 1 applic 09/11/19 22:00 09/21/19 10:31 Xylocaine 5% Top. Ointment TP 1 applic BID [facility] Administration Melatonin 10 mg 09/11/19 22:00 09/20/19 21:51 Melatonin PO 10 mg HS [facility] Administration Methylnaltrexone [place] 12 mg 09/12/19 10:00 09/21/19 10:31 Relistor - SQ Not Given DAILY [facility] Metoprolol Succinate 50 mg 09/12/19 22:00 09/21/19 10:30 Toprol Xl - PO 50 mg BID [facility] Administration Ondansetron HCl 4 mg 09/11/19 20:40 Zofran Injection IVPUSH Q6H PRN NAUSEA AND/OR VOMITING Oxycodone HCl 30 mg 09/17/19 22:02 09/21/19 13:32 Roxicodone - PO 30 mg Q6H PRN Administration PAIN LEVEL 6-10 Phenazopyridine HCl 100 mg 09/11/19 22:00 09/21/19 13:31 Pyridium - PO 100 mg TID [facility] Administration Polyethylene Glycol 17 gm 09/11/19 22:00 09/21/19 10:30 Miralax (For Daily Use) - PO Not Given BID [facility] Promethazine HCl 12.5 mg 09/11/19 20:40 Phenergan Injection - IVPB Q6H PRN NAUSEA-FOR RESCUE AFTER 15 MIN Rivaroxaban 20 mg 09/14/19 18:00 09/20/19 17:42 Xarelto PO 20 mg DAILY@1800 [facility] Administration Tamsulosin HCl 0.4 mg 09/12/19 08:30 09/21/19 10:30 Flomax - PO 0.4 mg DAILY@0830 [facility] Administration Impression 1. JANETT 2. lactic acidosis 3. sepsis 4. chf 5. hld 6. hx htn 7. nephrolithiasis 8. shock 9. hydronephrosis 10. obesity 11. 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
--- NOTE | 2019-09-21 14:51 | PN ---
Progress Note, Physician History of Present Illness: AWAKE, ALERT IN BED NO C/O L FLANK PAIN LEUKOCYTOSIS IMPROVED WNL AZOTEMIA IMPROVED BC E COLI - Current Medication List Current Medications: Active Medications Acetaminophen (Tylenol -) 650 mg PO Q4H PRN PRN Reason: FEVER Last Admin: 09/21/19 13:31 Dose: 650 mg Documented by: Al Hydroxide/Mg Hydroxide (Mylanta Oral Suspension -) 30 ml PO Q6H PRN PRN Reason: DYSPEPSIA Atorvastatin Calcium (Lipitor -) 10 mg PO HS [facility] Last Admin: 09/20/19 21:51 Dose: 10 mg Documented by: Clopidogrel Bisulfate (Plavix -) 75 mg PO DAILY [facility] Last Admin: 09/21/19 10:30 Dose: 75 mg Documented by: Digoxin (Lanoxin -) 0.25 mg PO DAILY [facility] Last Admin: 09/21/19 10:30 Dose: 0.25 mg Documented by: Finasteride (Proscar -) 5 mg PO DAILY [facility] Last Admin: 09/21/19 10:30 Dose: 5 mg Documented by: Gabapentin (Neurontin -) 900 mg PO TID [facility] Last Admin: 09/21/19 13:31 Dose: 900 mg Documented by: Hydrocortisone (Hytone 1% Ointment -) 1 applic TP BID [facility] Last Admin: 09/21/19 10:30 Dose: 1 applic Documented by: Cefazolin Sodium/Dextrose (Ancef 2 Gm Premixed Ivpb -) 2 gm in 50 mls @ 100 mls/hr IVPB Q8H-IV [facility] Last Admin: 09/21/19 10:30 Dose: 100 mls/hr Documented by: Insulin Aspart (Novolog Vial Sliding Scale -) 1 vial SQ ACHS [facility]; Protocol Last Admin: 09/21/19 13:48 Dose: 2 units Documented by: Lidocaine HCl (Xylocaine 5% Top. Ointment) 1 applic TP BID [facility] Last Admin: 09/21/19 10:31 Dose: 1 applic Documented by: Melatonin (Melatonin) 10 mg PO [facility] Last Admin: 09/20/19 21:51 Dose: 10 mg Documented by: Methylnaltrexone [place] (Relistor -) 12 mg SQ DAILY [facility] Last Admin: 09/21/19 10:31 Dose: Not Given Documented by: Metoprolol Succinate (Toprol Xl -) 50 mg PO BID [facility] Last Admin: 09/21/19 10:30 Dose: 50 mg Documented by: Ondansetron HCl (Zofran Injection) 4 mg IVPUSH Q6H PRN PRN Reason: NAUSEA AND/OR VOMITING Oxycodone HCl (Roxicodone -) 30 mg PO Q6H PRN PRN Reason: PAIN LEVEL 6-10 Last Admin: 09/21/19 13:32 Dose: 30 mg Documented by: Phenazopyridine HCl (Pyridium -) 100 mg PO TID [facility] Last Admin: 09/21/19 13:31 Dose: 100 mg Documented by: Polyethylene Glycol (Miralax (For Daily Use) -) 17 gm PO BID [facility] Last Admin: 09/21/19 10:30 Dose: Not Given Documented by: Promethazine HCl (Phenergan Injection -) 12.5 mg IVPB Q6H PRN PRN Reason: NAUSEA-FOR RESCUE AFTER 15 MIN Rivaroxaban (Xarelto) 20 mg PO DAILY@1800 [facility] Last Admin: 09/20/19 17:42 Dose: 20 mg Documented by: Tamsulosin HCl (Flomax -) 0.4 mg PO DAILY@0830 [facility] Last Admin: 09/21/19 10:30 Dose: 0.4 mg Documented by: - Objective Vital Signs: Vital Signs Temperature 98.6 F 09/21/19 13:57 Pulse Rate 82 09/21/19 13:57 Respiratory Rate 16 09/21/19 13:57 Blood Pressure 140/99 09/21/19 13:57 O2 Sat by Pulse Oximetry (%) 95 09/21/19 09:30 Constitutional: Yes: No Distress, Obese Cardiovascular: Yes: Regular Rate and Rhythm, S1, S2 Respiratory: Yes: CTA Bilaterally Gastrointestinal: Yes: Normal Bowel Sounds, Soft, Abdomen, Obese. No: Tenderness Labs: CBC, BMP 09/20/19 12:40 09/21/19 09:22 INR, PTT INR 2.43 (0.83-1.09) H 09/10/19 08:11 Assessment/Plan GRAM NEGATIVE BACTEREMIA/ SEPSIS E COLI LEUKOCYTOSIS IMPROVED AZOTEMIA IMPROVED CONTINUE CEFAZOLIN INCREASED 2GM IVPB Q8H FOR IMPROVED RENAL FUNCTION COMPLETE ADDITIONAL 7-10 D IV ANTIBIOTIC THERAPY VIA PICC PT/OOB
[2019-09-21] MEDS: RIVAROXABAN 20 MG TABLET PO SCH (18:19)
[2019-09-21] MEDS: ATORVASTATIN CA 10 MG TABLET (FP) PO SCH (21:57)
[2019-09-21] MEDS: MELATONIN 5 MG TABLETS PO SCH (21:58)
[2019-09-22] MEDS: oxyCODONE HCL 5 MG TABLET PO PRN ×2 (02:02→08:17)
[2019-09-22] MEDS: CEFAZOLIN 2 GM/D5W 2 GM/50 ML ML IVPB SCH ×2 (02:02→09:15)
[2019-09-22] MEDS: ACETAMINOPHEN 325 MG TABLET (FP) PO PRN ×2 (02:03→08:17)
[2019-09-22] MEDS: GABAPENTIN 300 MG CAPSULE PO SCH (06:14)
[2019-09-22] MEDS: INSULIN SLIDING SCALE (NOVOLOG) 1 VIAL SQ SCH (06:14)
[2019-09-22] MEDS: PHENAZOPYRIDINE HCL 100 MG TABLET (FP) PO SCH (06:14)
[2019-09-22] MEDS ORDERED: PT OWN MED DRAWER 7, Y5N ONE (09:10)
[2019-09-22 09:15] VITALS: BP 142/83; TEMP 98
[2019-09-22] MEDS: FINASTERIDE 5 MG TABLET (FP) PO SCH (09:15)
[2019-09-22] MEDS: DIGOXIN 0.25 MG TABLET (FP) PO SCH (09:15)
[2019-09-22] MEDS: TAMSULOSIN HCL 0.4 MG CAP PO SCH (09:15)
[2019-09-22] MEDS: CLOPIDOGREL BISULFATE 75 MG TABLET (FP) PO SCH (09:17)
[2019-09-22] MEDS: HYDROCORTISONE 1% TOPICAL OINT 30 GM TUBE TP SCH (09:18)
[2019-09-22] MEDS: LIDOCAINE HCL 5% TOP OINTMENT 50 GM TUBE TP SCH (09:18)
--- NOTE | 2019-09-22 09:19 | DS ---
Physical Examination Vital Signs: Vital Signs Temperature 98 F 09/22/19 09:14 Pulse Rate 64 09/22/19 09:14 Respiratory Rate 18 09/22/19 09:14 Blood Pressure 142/83 09/22/19 09:14 O2 Sat by Pulse Oximetry (%) 99 09/22/19 09:14 Cardiovascular: Yes: S1, S2 Respiratory: Yes: Regular, CTA Bilaterally Gastrointestinal: Yes: Normal Bowel Sounds, Soft Labs: CBC, BMP 09/20/19 12:40 09/21/19 09:22 Discharge Summary Problems reviewed: Yes Reason For Visit: URINARY TRACT INFECTION, SEPSIS, ALTERED MENTAL Current Active Problems JANETT (acute kidney injury) (Acute) Bacteremia (Acute) Obstructive nephropathy (Acute) Sepsis (Acute) Hospital Course: - Problems (1) Sepsis Assessment/Plan: IV ABX to complete 14 days ID ON BOARD--follow up Afebrile Microbiology 09/14/19 10:55 Blood - Peripheral Venous Blood Culture - Final NO GROWTH AFTER 5 DAYS INCUBATION 09/14/19 10:48 Blood - Peripheral Venous Blood Culture - Final NO GROWTH AFTER 5 DAYS INCUBATION 09/09/19 21:30 Blood - Peripheral Venous Blood Culture - Final Escherichia Coli 09/09/19 21:30 Blood - Peripheral Venous Blood Culture - Final Escherichia Coli 09/09/19 21:30 Urine - Urine - Catheterized Urine Culture - Final Escherichia Coli picc line placed some oozing hold ac x 24 hours Code(s): A41.9 - SEPSIS, UNSPECIFIED ORGANISM Qualifiers: Sepsis type: sepsis due to unspecified organism Qualified Code(s): A41.9 - Sepsis, unspecified organism (2) UTI (urinary tract infection) Assessment/Plan: ABOVE Microbiology 09/09/19 21:30 Blood - Peripheral Venous Blood Culture - Final Escherichia Coli 09/09/19 21:30 Blood - Peripheral Venous Blood Culture - Final Escherichia Coli 09/09/19 21:30 Urine - Urine - Catheterized Urine Culture - Final Escherichia Coli Code(s): N39.0 - URINARY TRACT INFECTION, SITE NOT SPECIFIED (3) Atrial fibrillation with RVR Assessment/Plan: Improved rate controlled ON B-BLOCKERS resume xarelto Code(s): I48.91 - UNSPECIFIED ATRIAL FIBRILLATION (4) CHF (congestive heart failure) Code(s): I50.9 - HEART FAILURE, UNSPECIFIED (5) COPD (chronic obstructive pulmonary disease) Assessment/Plan: stable Code(s): J44.9 - CHRONIC OBSTRUCTIVE PULMONARY DISEASE, UNSPECIFIED (6) Diabetes Assessment/Plan: BGM Code(s): E11.9 - TYPE 2 DIABETES MELLITUS WITHOUT COMPLICATIONS Qualifiers: Diabetes mellitus type: type 2 (7) HTN (hypertension) Assessment/Plan: Vital Signs Period Temp Pulse Resp BP Sys/Mixon Pulse Ox Last 24 Hr 98.1 F-99.1 F 78-101 20-20 110-131/58-90 100 Code(s): I10 - ESSENTIAL (PRIMARY) HYPERTENSION (8) Obstructive nephropathy Assessment/Plan: Operative Date: 09/10/19 Pre-Operative Diagnosis: left ureteral stone with high grade obstruction; gram negative sepsis; acute renal injury Operation: cystoscopy/left retrograde pyelogram/left ureteroscopic stone manipulation and stent placement. Findings: high grade hydronephrosis with obstructing 1+ ureteral stone Post-Operative Diagnosis: Same as Pre-op Surgeon: Tyrell Little Code(s): N13.8 - OTHER OBSTRUCTIVE AND REFLUX UROPATHY Assessment/Plan [facility] d[facility]w pt Condition: Improved - Instructions Referrals: Akash Russell MD [Primary Care Provider] - Disposition: ALF FACILITY - Home Medications Comprehensive Discharge Medication List: Ambulatory Orders Insulin Detemir [Levemir Flextouch] 10 unit SQ ACBK #1 insuln.pen MDD 1 07/29/17 Melatonin 5 mg PO HS PRN tab 07/29/17 Finasteride [Proscar -] 5 mg PO DAILY 09/05/17 Lisinopril [Zestril] 2.5 mg PO DAILY 09/05/17 Simvastatin 20 mg PO DAILY 09/05/17 Phenazopyridine HCl [Pyridium -] 100 mg PO TID #90 tablet 03/26/18 Clopidogrel Bisulfate [Plavix -] 75 mg PO DAILY tablet 04/19/19 Digoxin [Lanoxin -] 0.25 mg PO DAILY tablet 04/19/19 Docusate Sodium [Colace -] 300 mg PO HS capsule 04/19/19 Gabapentin [Neurontin -] 900 mg PO TID capsule 04/19/19 Insulin Sliding Scale [Novolog Vial Sliding Scale -] 1 vial SQ ACHS units 02/10/20 Lidocaine 5% Top. Ointment [Xylocaine 5% Top. Ointment -] 1 applic TP BID tube 04/19/19 Lidocaine Patch Removal [Lidoderm Patch Removal] 1 each MC DAILY@2200 each 04/19/19 Mag Hydrox/Al Hydrox/Simeth [Mylanta Oral Suspension -] 30 ml PO Q6H PRN cup 04/19/19 Melatonin 10 mg PO HS tab 04/19/19 Methylnaltrexone [place] [Relistor -] 12 mg SQ DAILY kit 04/19/19 Metoprolol Succinate [Toprol XL -] 50 mg PO DAILY tab.sr.24h 04/19/19 Polyethylene Glycol 3350 [Miralax 119 gm Btl -] 17 gm PO BID bottle 04/19/19 Rivaroxaban [Xarelto -] 20 mg PO DAILY@1800 tablet 04/19/19 Tamsulosin HCl [Flomax -] 0.4 mg PO DAILY@0830 cap.er.24h 04/19/19 levETIRAcetam [Levetiracetam -] 750 mg PO DAILY tab.er.24h 04/19/19 oxyCODONE HCL [Roxicodone -] 30 mg PO Q6H PRN tablet MDD 4 04/19/19 Acetaminophen [Tylenol .Regular Strength -] 650 mg PO Q4H PRN tablet 09/21/19 Cefazolin 2 gm/D5w [Ancef 2 gm Premixed Ivpb -] 2 gm IV TID #15 ml 09/21/19 Hydrocortisone 1% Ointment [Hytone 1% Ointment -] 1 applic TP BID tube 09/21/19 Insulin Sliding Scale [Novolog Vial Sliding Scale -] 1 vial SQ ACHS units 09/21/19
[2019-09-22] MEDS: Methylnaltrexone Bromide 12 MG/0.6 ML KIT SQ SCH (09:20)
[2019-09-22] MEDS: POLYETHYLENE GLYCOL 3350 119 GM BTL PO SCH (09:20)
[2019-09-22 09:28] VITALS: PULSE 74
--- NOTE | 2019-09-22 11:13 | PN ---
Progress Note, Physician History of Present Illness: Pt seen and examined at bedside. He feels that his edema is improved. He denies shortness of breath. - Current Medication List Current Medications: Active Medications Acetaminophen (Tylenol -) 650 mg PO Q4H PRN PRN Reason: FEVER Last Admin: 09/22/19 08:17 Dose: 650 mg Documented by: Al Hydroxide/Mg Hydroxide (Mylanta Oral Suspension -) 30 ml PO Q6H PRN PRN Reason: DYSPEPSIA Last Admin: 09/21/19 19:50 Dose: 30 ml Documented by: Atorvastatin Calcium (Lipitor -) 10 mg PO HS [facility] Last Admin: 09/21/19 21:57 Dose: 10 mg Documented by: Clopidogrel Bisulfate (Plavix -) 75 mg PO DAILY [facility] Last Admin: 09/22/19 09:17 Dose: Not Given Documented by: Digoxin (Lanoxin -) 0.25 mg PO DAILY [facility] Last Admin: 09/22/19 09:15 Dose: 0.25 mg Documented by: Finasteride (Proscar -) 5 mg PO DAILY [facility] Last Admin: 09/22/19 09:15 Dose: 5 mg Documented by: Gabapentin (Neurontin -) 900 mg PO TID [facility] Last Admin: 09/22/19 06:14 Dose: 900 mg Documented by: Hydrocortisone (Hytone 1% Ointment -) 1 applic TP BID [facility] Last Admin: 09/22/19 09:18 Dose: 1 applic Documented by: Cefazolin Sodium/Dextrose (Ancef 2 Gm Premixed Ivpb -) 2 gm in 50 mls @ 100 mls/hr IVPB Q8H-IV [facility] Last Admin: 09/22/19 09:15 Dose: 100 mls/hr Documented by: Insulin Aspart (Novolog Vial Sliding Scale -) 1 vial SQ ACHS [facility]; Protocol Last Admin: 09/22/19 06:14 Dose: 4 units Documented by: Lidocaine HCl (Xylocaine 5% Top. Ointment) 1 applic TP BID [facility] Last Admin: 09/22/19 09:18 Dose: 1 applic Documented by: Melatonin (Melatonin) 10 mg PO [facility] Last Admin: 09/21/19 21:58 Dose: 10 mg Documented by: Methylnaltrexone [place] (Relistor -) 12 mg SQ DAILY [facility] Last Admin: 09/22/19 09:20 Dose: Not Given Documented by: Metoprolol Succinate (Toprol Xl -) 50 mg PO BID [facility] Last Admin: 09/22/19 09:16 Dose: 50 mg Documented by: Ondansetron HCl (Zofran Injection) 4 mg IVPUSH Q6H PRN PRN Reason: NAUSEA AND/OR VOMITING Oxycodone HCl (Roxicodone -) 30 mg PO Q6H PRN PRN Reason: PAIN LEVEL 6-10 Last Admin: 09/22/19 08:17 Dose: 30 mg Documented by: Phenazopyridine HCl (Pyridium -) 100 mg PO TID [facility] Last Admin: 09/22/19 06:14 Dose: 100 mg Documented by: Polyethylene Glycol (Miralax (For Daily Use) -) 17 gm PO BID [facility] Last Admin: 09/22/19 09:20 Dose: Not Given Documented by: Promethazine HCl (Phenergan Injection -) 12.5 mg IVPB Q6H PRN PRN Reason: NAUSEA-FOR RESCUE AFTER 15 MIN Rivaroxaban (Xarelto) 20 mg PO DAILY@1800 [facility] Last Admin: 09/21/19 18:19 Dose: 20 mg Documented by: Tamsulosin HCl (Flomax -) 0.4 mg PO DAILY@0830 [facility] Last Admin: 09/22/19 09:15 Dose: 0.4 mg Documented by: - Objective Vital Signs: Vital Signs Temperature 98 F 09/22/19 09:14 Pulse Rate 74 09/22/19 09:15 Respiratory Rate 18 09/22/19 09:14 Blood Pressure 142/83 09/22/19 09:14 O2 Sat by Pulse Oximetry (%) 99 09/22/19 09:14 Constitutional: Yes: Calm Eyes: Yes: Conjunctiva Clear HENT: Yes: Atraumatic Neck: Yes: Supple Cardiovascular: Yes: S1, S2 Respiratory: Yes: CTA Bilaterally Gastrointestinal: Yes: Soft, Abdomen, Obese Genitourinary: Yes: WNL Musculoskeletal: Yes: WNL Edema: No Neurological: Yes: Oriented Psychiatric: Yes: Oriented Labs: CBC, BMP 09/20/19 12:40 09/21/19 09:22 INR, PTT INR 2.43 (0.83-1.09) H 09/10/19 08:11 Problem List - Problems (1) JANETT (acute kidney injury) Code(s): N17.9 - ACUTE KIDNEY FAILURE, UNSPECIFIED (2) CHF (congestive heart failure) Code(s): I50.9 - HEART FAILURE, UNSPECIFIED (3) COPD (chronic obstructive pulmonary disease) Code(s): J44.9 - CHRONIC OBSTRUCTIVE PULMONARY DISEASE, UNSPECIFIED (4) Lactic acidosis Code(s): E87.2 - ACIDOSIS Assessment/Plan Current Medications Generic Name Dose Route Start Last Admin Trade Name Freq PRN Reason Stop Dose Admin Acetaminophen 650 mg 09/12/19 14:50 09/22/19 08:17 Tylenol - PO 650 mg Q4H PRN Administration FEVER Al Hydroxide/Mg Hydroxide 30 ml 09/11/19 20:40 09/21/19 19:50 Mylanta Oral Suspension - PO 30 ml Q6H PRN Administration DYSPEPSIA Atorvastatin Calcium 10 mg 09/11/19 22:00 09/21/19 21:57 Lipitor - PO 10 mg HS [facility] Administration Clopidogrel Bisulfate 75 mg 09/12/19 10:00 09/22/19 09:17 Plavix - PO Not Given DAILY [facility] Digoxin 0.25 mg 09/14/19 10:00 09/22/19 09:15 Lanoxin - PO 0.25 mg DAILY [facility] Administration Finasteride 5 mg 09/12/19 10:00 09/22/19 09:15 Proscar - PO 5 mg DAILY [facility] Administration Gabapentin 900 mg 09/11/19 22:00 09/22/19 06:14 Neurontin - PO 900 mg TID [facility] Administration Hydrocortisone 1 applic 09/14/19 22:00 09/22/19 09:18 Hytone 1% Ointment - TP 1 applic BID [facility] Administration Cefazolin Sodium/Dextrose 2 gm in 50 mls @ 100 mls/hr 09/15/19 18:00 09/22/19 09:15 Ancef 2 Gm Premixed Ivpb - IVPB 100 mls/hr Q8H-IV [facility] Administration Insulin Aspart 1 vial 09/11/19 22:00 09/22/19 06:14 Novolog Vial Sliding Scale - SQ 4 units ACHS [facility] Administration Protocol Lidocaine HCl 1 applic 09/11/19 22:00 09/22/19 09:18 Xylocaine 5% Top. Ointment TP 1 applic BID [facility] Administration Melatonin 10 mg 09/11/19 22:00 09/21/19 21:58 Melatonin PO 10 mg HS [facility] Administration Methylnaltrexone [place] 12 mg 09/12/19 10:00 09/22/19 09:20 Relistor - SQ Not Given DAILY [facility] Metoprolol Succinate 50 mg 09/12/19 22:00 09/22/19 09:16 Toprol Xl - PO 50 mg BID [facility] Administration Ondansetron HCl 4 mg 09/11/19 20:40 Zofran Injection IVPUSH Q6H PRN NAUSEA AND/OR VOMITING Oxycodone HCl 30 mg 09/17/19 22:02 09/22/19 08:17 Roxicodone - PO 30 mg Q6H PRN Administration PAIN LEVEL 6-10 Phenazopyridine HCl 100 mg 09/11/19 22:00 09/22/19 06:14 Pyridium - PO 100 mg TID [facility] Administration Polyethylene Glycol 17 gm 09/11/19 22:00 09/22/19 09:20 Miralax (For Daily Use) - PO Not Given BID [facility] Promethazine HCl 12.5 mg 09/11/19 20:40 Phenergan Injection - IVPB Q6H PRN NAUSEA-FOR RESCUE AFTER 15 MIN Rivaroxaban 20 mg 09/14/19 18:00 09/21/19 18:19 Xarelto PO 20 mg DAILY@1800 [facility] Administration Tamsulosin HCl 0.4 mg 09/12/19 08:30 09/22/19 09:15 Flomax - PO 0.4 mg DAILY@0830 [facility] Administration Impression 1. JANETT 2. lactic acidosis 3. sepsis 4. chf 5. hld 6. hx htn 7. nephrolithiasis 8. shock 9. hydronephrosis 10. obesity 11. copd Plan - volume status is stable - lasix held - can restart at 20 mg and monitor lytes along with volume status - can follow as outpt - avoid nsaids - pt tolerating diet
[2019-09-23] MEDS ORDERED: FUROSEMIDE 20 MG TABLET (FP) PO SCH (10:00)
== END 2019-09-22 10:14 | DRG 853 ==
LOC: JER 20:29 → JERBED 22:24 → JICU 09-10 12:15 → J4S 09-11 20:28
PROVIDERS: ADMIT Internal Medicine; ATTEND Family Medicine
PROC: 0TC78ZZ Extirpation of Matter from Left Ureter, Via Natural or Artificial Opening Endoscopic (ICD-10-PCS; 2019-09-10)
PROC: 0T778DZ Dilation of Left Ureter with Intraluminal Device, Via Natural or Artificial Opening Endoscopic (ICD-10-PCS; 2019-09-10)
PROC: 05HM33Z Insertion of Infusion Device into Right Internal Jugular Vein, Percutaneous Approach (ICD-10-PCS; 2019-09-10)
PROC: B543ZZA Ultrasonography of Right Jugular Veins, Guidance (ICD-10-PCS; 2019-09-10)
PROC: 02HV33Z Insertion of Infusion Device into Superior Vena Cava, Percutaneous Approach (ICD-10-PCS; principal; 2019-09-21)
PROC: B518ZZA Fluoroscopy of Superior Vena Cava, Guidance (ICD-10-PCS; 2019-09-21)
DX: A41.51 Sepsis due to Escherichia coli [E. coli] (principal); T81.12XA Postprocedural septic shock, initial encounter; N17.9 Acute kidney failure, unspecified; Z68.45 Body mass index [BMI] 70 or greater, adult; N13.6 Pyonephrosis; E87.2 Acidosis; I50.32 Chronic diastolic (congestive) heart failure; N13.8 Other obstructive and reflux uropathy; E78.5 Hyperlipidemia, unspecified; I25.10 Atherosclerotic heart disease of native coronary artery without angina pectoris; J44.9 Chronic obstructive pulmonary disease, unspecified; I95.9 Hypotension, unspecified; E66.01 Morbid (severe) obesity due to excess calories; I95.81 Postprocedural hypotension; I48.0 Paroxysmal atrial fibrillation; N40.0 Benign prostatic hyperplasia without lower urinary tract symptoms; S51.011A Laceration without foreign body of right elbow, initial encounter; I11.0 Hypertensive heart disease with heart failure; K74.60 Unspecified cirrhosis of liver; R00.0 Tachycardia, unspecified; Z95.0 Presence of cardiac pacemaker; F41.8 Other specified anxiety disorders; M54.5 Low back pain; D69.6 Thrombocytopenia, unspecified
CPT/HCPCS: 36415; 36569; 70450-TC; 71045-TC-FY; 73030-TC-LT-FY; 73070-TC-RT-FY; 74178-TC; 76775-TC; 77001-TC-FY; 80048; 80053; 81003; 82550; 82962; 83036; 83605; 83735; 84100; 84484; 85025; 85027; 85610; 85730; 86850; 86900; 86901; 87040; 87086; 87186; 93005; 93010; 94760; 97116-GP; 97161-GP; 99285-25; C1751; J0131; U0003

== ENCOUNTER 2023-11-26 14:27 | Inpatient (IN) | payer OTHER ==
[2023-11-26] MEDS ORDERED: CEFTRIAXONE 2 GM/100 ML BAG IVPB ONE (15:27)
[2023-11-26] MEDS: CEFTRIAXONE 2 GM in DEXTROSE 5%-WATER - 100 ML IVPB ONE (15:30)
[2023-11-26 15:58] LABS: BASO % 0.8 % (0-2.0); EOS % 5.4 % (0-4.5); HEMATOCRIT 33.3 % (35.4-49); HEMOGLOBIN 10.9 GM/dL (11.7-16.9); LYMPH % 34.4 % (8-40); MCH 29.5 pg (25.7-33.7); MCHC 32.8 g/dl (32.0-35.9); MEAN CELL VOLUME 90.1 fl (80-96); MEAN PLT VOLUME 6.3 fl (7.5-11.1); MONO % 8.7 % (3.8-10.2); NEUT % 50.7 % (42.8-82.8); PLATELET COUNT 198 10^3/uL (134-434); RBC 3.69 M/mm3 (4.00-5.60); RDW 14.8 % (11.9-15.9); WHITE BLOOD COUNT 5.4 K/mm3 (4.0-10.0)
[2023-11-26 16:18] LABS: POTASSIUM 4.4 mmol/L (3.5-5.1)
[2023-11-26 16:20] LABS: CALCIUM 8.6 mg/dL (8.5-10.1)
[2023-11-26 16:21] LABS: ALBUMIN 2.7 g/dl (3.4-5.0); BLOOD UREA NITROGEN 15.8 mg/dL (7-18)
[2023-11-26 16:24] LABS: CREATININE 1.2 mg/dL (0.55-1.3)
[2023-11-26 16:25] LABS: BILIRUBIN,TOTAL 0.3 mg/dL (0.2-1); TOT PROT 6.8 g/dl (6.4-8.2)
[2023-11-26 16:34] LABS: ERYTHROCYTE SEDIMENTATION RATE 51 mm/hr (0-20)
[2023-11-26] MEDS ORDERED: oxyCODONE HCL 5 MG TABLET ONE (18:27)
[2023-11-26] MEDS: oxyCODONE HCL 5 MG TABLET PO ONE (18:38)
[2023-11-26] MEDS: INSULIN ASPART SLIDING SCALE (NOVOLOG) 1 VIAL SQ SCH (21:02)
[2023-11-27] MEDS ORDERED: MAG HYDROX/AL HYDROX/SIMETH 30 ML UNIT-DOSE CUP PO PRN (02:49)
[2023-11-27] MEDS ORDERED: POLYETHYLENE GLYCOL (HEALTHYLAX) 3350 17 GM PACKET PO PRN (03:22)
[2023-11-27] MEDS: oxyCODONE HCL 5 MG TABLET PO PRN (04:21)
[2023-11-27] MEDS: GABAPENTIN 300 MG CAPSULE PO SCH (05:42)
[2023-11-27] MEDS: TAMSULOSIN HCL 0.4 MG CAP PO SCH (09:07)
[2023-11-27] MEDS: ASCORBIC ACID 250 MG TABLET (FP) PO SCH (09:07)
[2023-11-27] MEDS: MULTIVITAMINS THER W-MINERALS COMBO TABLET (FP) PO SCH (09:07)
[2023-11-27] MEDS: METOPROLOL TARTRATE 25 MG TABLET (FP) PO SCH (09:07)
[2023-11-27] MEDS: DIGOXIN 0.125 MG TABLET PO SCH (09:07)
[2023-11-27] MEDS: CLOPIDOGREL BISULFATE 75 MG TABLET (FP) PO SCH (09:08)
[2023-11-27] MEDS: levETIRAcetam XR 750 MG TAB PO SCH (09:08)
[2023-11-27 09:11] LABS: BASO % 0.9 % (0-2.0); EOS % 5.2 % (0-4.5); HEMATOCRIT 34.5 % (35.4-49); HEMOGLOBIN 11.2 GM/dL (11.7-16.9); LYMPH % 40.9 % (8-40); MCH 29.4 pg (25.7-33.7); MCHC 32.5 g/dl (32.0-35.9); MEAN CELL VOLUME 90.3 fl (80-96); MEAN PLT VOLUME 6.6 fl (7.5-11.1); MONO % 9.1 % (3.8-10.2); NEUT % 43.9 % (42.8-82.8); PLATELET COUNT 217 10^3/uL (134-434); RBC 3.82 M/mm3 (4.00-5.60); RDW 14.6 % (11.9-15.9); WHITE BLOOD COUNT 6.2 K/mm3 (4.0-10.0)
[2023-11-27 09:23] LABS: INR 1.42 (0.83-1.09); PROTHROMBIN TIME (PATIENT) 15.9 SEC (9.7-13.0)
[2023-11-27 09:26] LABS: ACTIVATED PTT 38.2 SECONDS (25.2-36.5)
[2023-11-27 09:41] LABS: POTASSIUM 4.3 mmol/L (3.5-5.1)
[2023-11-27 09:42] LABS: CALCIUM 8.8 mg/dL (8.5-10.1)
[2023-11-27 09:43] LABS: BLOOD UREA NITROGEN 13.8 mg/dL (7-18); MAGNESIUM 1.8 mg/dL (1.8-2.4)
[2023-11-27 09:46] LABS: CREATININE 1.1 mg/dL (0.55-1.3); PHOSPHOROUS 3.9 mg/dL (2.5-4.9)
[2023-11-27] MEDS: COLLAGENASE CLOSTRIDIUM HIST. 30 GRAMS TUBE TP SCH (11:25)
[2023-11-27] MEDS: CEFTRIAXONE 2 GM in DEXTROSE 5%-WATER 100 ML IVPB SCH (11:26)
[2023-11-27] MEDS: RIVAROXABAN 20 MG TABLET PO SCH (17:30)
[2023-11-28] MEDS: PIPERACILLIN/TAZOB 3.375 GM 3.375 GM in DEXTROSE 5%-WATER - 50 ML IVPB SCH (17:56)
[2023-11-29] MEDS ORDERED: INSULIN (LEVEMIR) 100 UNITS/ML UNITS SQ ONE (17:35)
[2023-11-30] MEDS: INSULIN (LEVEMIR) 100 UNITS/ML UNITS SQ SCH (06:09)
[2023-11-30] MEDS: INSULIN ASPART SLIDING SCALE (NOVOLOG) 1 VIAL SQ SCH (22:03)
[2023-12-01] MEDS: INSULIN (LEVEMIR) 100 UNITS/ML UNITS SQ SCH (06:27)
[2023-12-01 15:37] VITALS: BMI 36.8
[2023-12-01] MEDS: oxyCODONE HCL 5 MG TABLET PO ONE (21:16)
[2023-12-02 06:44] VITALS: RESP 18
[2023-12-02] MEDS ORDERED: LIDOCAINE HCL 2% (20ML MULTI-DOSE VIAL) ONE (07:18)
[2023-12-02] MEDS ORDERED: BUPIVACAINE HCL/PF 0.5% (5MG/ML) 10 ML VIAL ONE (07:18)
[2023-12-02] MEDS ORDERED: ONDANSETRON 4 MG/2 ML VIAL ONE (07:19)
[2023-12-02] MEDS ORDERED: LIDOCAINE HCL/PF 2% SDV 5ML VIAL ONE (07:19)
[2023-12-02] MEDS ORDERED: PROPOFOL 80 ML ONE (07:20)
[2023-12-02] MEDS ORDERED: MIDAZOLAM HCL 2 MG/2 ML SINGLE DOSE VIAL ONE (07:20)
[2023-12-02] MEDS ORDERED: ONDANSETRON 4 MG/2 ML VIAL IVPUSH PRN ×2 (07:35→08:29)
[2023-12-02] MEDS ORDERED: LIDOCAINE HCL 1%, 10 MG/ML (20ML VIAL) ONE (07:41)
[2023-12-02] MEDS ORDERED: LACTATED RINGERS SOLUTION 1,000 ML IV SCH ×2 (07:45→08:29)
[2023-12-02] MEDS: LIDOCAINE HCL 2% (50ML VIAL) NR ONE (07:45)
[2023-12-02] MEDS ORDERED: POLYETHYLENE GLYCOL (HEALTHYLAX) 3350 17 GM PACKET PO PRN (08:29)
[2023-12-02] MEDS ORDERED: MAG HYDROX/AL HYDROX/SIMETH 30 ML UNIT-DOSE CUP PO PRN (08:29)
[2023-12-02] MEDS: TAMSULOSIN HCL 0.4 MG CAP PO SCH (08:30)
[2023-12-02] MEDS: CLOPIDOGREL BISULFATE 75 MG TABLET (FP) PO SCH (10:59)
[2023-12-02] MEDS: INSULIN ASPART SLIDING SCALE (NOVOLOG) 1 VIAL SQ SCH (11:57)
[2023-12-02] MEDS: levETIRAcetam XR 750 MG TAB PO SCH (12:26)
[2023-12-02] MEDS: MULTIVITAMINS THER W-MINERALS COMBO TABLET (FP) PO SCH (12:26)
[2023-12-02] MEDS: METOPROLOL TARTRATE 25 MG TABLET (FP) PO SCH (12:26)
[2023-12-02] MEDS: ASCORBIC ACID 250 MG TABLET (FP) PO SCH (12:29)
[2023-12-02] MEDS: oxyCODONE HCL 5 MG TABLET PO PRN (12:32)
[2023-12-02] MEDS: DIGOXIN 0.125 MG TABLET PO SCH (12:37)
[2023-12-02] MEDS: GABAPENTIN 300 MG CAPSULE PO SCH (14:26)
[2023-12-02] MEDS: RIVAROXABAN 20 MG TABLET PO SCH (18:12)
[2023-12-03] MEDS: INSULIN (LEVEMIR) 100 UNITS/ML UNITS SQ SCH (07:59)
[2023-12-03] MEDS: PIPERACILLIN/TAZOB 4.5 GM 4.5 GM in DEXTROSE 5%-WATER 100 ML IVPB SCH (10:50)
[2023-12-03 11:08] LABS: HEMATOCRIT 33.6 % (35.4-49); HEMOGLOBIN 11.4 GM/dL (11.7-16.9); MCH 30.3 pg (25.7-33.7); MCHC 33.9 g/dl (32.0-35.9); MEAN CELL VOLUME 89.2 fl (80-96); MEAN PLT VOLUME 7.2 fl (7.5-11.1); PLATELET COUNT 170 10^3/uL (134-434); RBC 3.76 M/mm3 (4.00-5.60); WHITE BLOOD COUNT 7.2 K/mm3 (4.0-10.0)
[2023-12-03 11:37] LABS: POTASSIUM 4.2 mmol/L (3.5-5.1)
[2023-12-03 11:41] LABS: ALBUMIN 2.6 g/dl (3.4-5.0)
[2023-12-03 11:42] LABS: CALCIUM 8.6 mg/dL (8.5-10.1)
[2023-12-03 11:44] LABS: CREATININE 1.2 mg/dL (0.55-1.3)
[2023-12-03 11:45] LABS: BILIRUBIN,TOTAL 0.4 mg/dL (0.2-1); TOT PROT 6.6 g/dl (6.4-8.2)
[2023-12-03] MEDS: oxyCODONE HCL 5 MG TABLET PO PRN (16:05)
[2023-12-04] MEDS ORDERED: INSULIN ASPART SLIDING SCALE (NOVOLOG) 1 VIAL SQ ONE (06:25)
[2023-12-04 15:56] VITALS: BP 127/83; PULSE 67; TEMP 98.8
== END 2023-12-04 16:58 | DRG 629 ==
LOC: JER 14:27 → JERBED 17:32 → J8W 11-27 04:18
PROVIDERS: ADMIT Internal Medicine; ATTEND Family Medicine
PROC: 0QBP3ZX Excision of Left Metatarsal, Percutaneous Approach, Diagnostic (ICD-10-PCS; principal; 2023-12-02 07:30)
DX: E11.69 Type 2 diabetes mellitus with other specified complication (principal); I50.32 Chronic diastolic (congestive) heart failure; M86.172 Other acute osteomyelitis, left ankle and foot; L97.528 Non-pressure chronic ulcer of other part of left foot with other specified severity; E11.621 Type 2 diabetes mellitus with foot ulcer; B96.20 Unspecified Escherichia coli [E. coli] as the cause of diseases classified elsewhere; B95.2 Enterococcus as the cause of diseases classified elsewhere; I25.10 Atherosclerotic heart disease of native coronary artery without angina pectoris; E78.5 Hyperlipidemia, unspecified; I11.0 Hypertensive heart disease with heart failure; I48.91 Unspecified atrial fibrillation; J44.9 Chronic obstructive pulmonary disease, unspecified; N40.0 Benign prostatic hyperplasia without lower urinary tract symptoms; E66.9 Obesity, unspecified; Z95.5 Presence of coronary angioplasty implant and graft; Z68.37 Body mass index [BMI] 37.0-37.9, adult; Z95.0 Presence of cardiac pacemaker
CPT/HCPCS: 36415; 73610-TC-LT-FY; 73630-TC-LT; 78315-TC; 80048; 80053; 82962; 83036; 83735; 84100; 85025; 85027; 85610; 85651; 85730; 86140; 87040; 87070; 87075; 87186; 87205; 93005; 93010; 94760; 99285-25; A9503

== ENCOUNTER 2024-08-16 05:29 | Day surgery (SDC) | payer OTHER ==
[2024-08-12 16:29] VITALS: BMI 38.7
[2024-08-16] MEDS ORDERED: MIDAZOLAM HCL 2 MG/2 ML SINGLE DOSE VIAL ONE (13:35)
[2024-08-16 14:47] VITALS: BP 136/67; PULSE 66; RESP 20; TEMP 97.3
== END 2024-08-16 17:47 | disposition home or self-care (01) ==
LOC: JASU-SURG 05:29
PROVIDERS: ATTEND Urology
PROC: 0TF4XZZ Fragmentation in Left Kidney Pelvis, External Approach (ICD-10-PCS; principal; 2024-08-16 14:00)
DX: N20.0 Calculus of kidney (principal)